=== PATIENT | female | born 1945 | race African-American/Black ===

== ENCOUNTER 2016-10-17 10:20 | Emergency (ER) | payer OTHER ==
[2016-10-17 10:27] VITALS: TEMP 97.8; BMI 38.7
--- NOTE | 2016-10-17 11:03 | PDOC ---
History of Present Illness - General History Source: Patient Exam Limitations: No Limitations - History of Present Illness Initial Comments: 10/17/16 11:06 <Yulisa Rosas - Last Filed: 10/17/16 14:50> - History of Present Illness Initial Comments: <Asha Basurto - Last Filed: 10/17/16 11:04> - General History Source: Patient Exam Limitations: No Limitations - History of Present Illness Initial Comments: 10/17/16 11:06 The patient is a 71-year-old woman, accompanied by spouse, with a significant past medical history of hypertension who presents to the emergency department via walk-in for further evaluation of right sided back pain for the past week. No fall, recent strenuous activity. She states that her pain is located at the right mid thoracic paraspinal area around the right mid thoracic rib that radiates around the mid axillary area with a rated 5/10. She notes that her pain is exacerbated when taking a deep breath and with any musculoskeletal movements, but doesn't feel short of breath. She has not taking any pain medications to help alleviate her symptoms. She denies any change in her pain for the past week but reports her pain has remained constant, thus presenting to the ED today. She denies any recent travel. She did see Dr Lieberman on Tuesday and was given an rx for a CXR, but she did not have that done yet. She denies any change in her chronic bilateral LE edema, and states it is actually slightly less today She denies chest pain, radiation of back pain into lower extremities She denies SOB, VELASQUEZ, fever, chills, cough, N/V/D, bowel or bladder incontinence/ retention. Allergies: No Known Drug Allergies Past Surgical History: None reported. Social History: No tobacco, ETOH or recreational drug use. Primary Care Physician: Dr. Gatito Lieberman Remainder of the review of systems is negative <Yulisa Rosas - Last Filed: 10/17/16 11:06> <Asha Basurto - Last Filed: 10/17/16 14:59> - General Chief Complaint: Back Pain Stated Complaint: RT SIDE CHEST PAIN (PCP SENT) Time Seen by Provider: 10/17/16 10:45 Past History <Yulisa Rosas - Last Filed: 10/17/16 14:50> - Past Medical History HTN: Yes - Immunization History Immunization Up to Date: Yes - Psycho/Social/Smoking Cessation Hx Anxiety: No Suicidal Ideation: No Smoking Status: No Smoking History: Never smoked Years of Tobacco Use: 10 Number of Cigarettes Smoked Daily: 0 Hx Alcohol Use: No Substance Use Type: None <Asha Basurto - Last Filed: 10/17/16 14:59> - Past Medical History Allergies/Adverse Reactions: Allergies Allergy/AdvReac Type Severity Reaction Status Date / Time No Known Allergies Allergy Verified 10/17/16 10:27 Home Medications: Ambulatory Orders Losartan Potassium [Cozaar] 50 mg PO DAILY 01/15/15 Metoprolol Succinate [Toprol Xl] 50 mg PO DAILY 01/15/15 Lidocaine 5% Patch [Lidoderm Patch -] 1 patch TP DAILY #30 patch 10/17/16 Review of Systems - Review of Systems Able to Perform ROS?: Yes Comments:: 10/17/16 11:06 12 point review of systems is as per history of present illness and otherwise negative <Yulisa Rosas - Last Filed: 10/17/16 14:50> *Physical Exam - Vital Signs Last Vital Signs Temp Pulse Resp BP Pulse Ox 97.8 F 60 20 122/72 96 10/17/16 10:21 10/17/16 10:21 10/17/16 10:21 10/17/16 10:21 10/17/16 10:21 <Yulisa Rosas - Last Filed: 10/17/16 14:50> - Vital Signs Last Vital Signs Temp Pulse Resp BP Pulse Ox 97.8 F 60 20 122/72 96 10/17/16 10:21 10/17/16 10:21 10/17/16 10:21 10/17/16 10:21 10/17/16 10:21 - Physical Exam Comments: 10/17/16 11:00 Physical exam Last Vital Signs Temp Pulse Resp BP Pulse Ox 97.8 F 60 20 122/72 96 10/17/16 10:21 10/17/16 10:21 10/17/16 10:21 10/17/16 10:21 10/17/16 10:21 GENERAL: The patient is awake, alert, and fully oriented, and in no apparent distress. HEAD: Normal with no signs of trauma. EYES: sclera anicteric, conjunctiva are normal. ENT: Moist mucous membranes. NECK: Normal range of motion, supple LUNGS: Breath sounds equal, clear to auscultation bilaterally. No wheezes, and no crackles. HEART: Regular rate and rhythm, normal S1 and S2 without murmur, rub or gallop. BACK: There is no T-spine tenderness There is no CVA tenderness There is right paraspinal muscle tenderness in the midthoracic spine area This calms around laterally a bit along a rib There is no rashes or shingles noted ABDOMEN: Soft, nontender, normoactive bowel sounds. No guarding, no rebound. No masses appreciated. EXTREMITIES: There is 1-2+ pitting edema in the lower extremities bilaterally Patient states that this is chronic, and it is actually less swollen than usual today There is no calf tenderness or swelling NEUROLOGICAL: Cranial nerves II through XII grossly intact. Normal speech, normal gait. PSYCH: Normal mood, normal affect. SKIN: Warm, Dry, normal turgor, no rashes or lesions noted. <Asha Basurto - Last Filed: 10/17/16 14:59> ED Treatment Course - LABORATORY CBC & Chemistry Diagram: 10/17/16 11:08 10/17/16 11:08 - RADIOLOGY Radiograph Interpretation: 10/17/16 12:00 EXAM: RAD/CHEST PA LAT IMPRESSION: There are no prior studies for comparison. There are degenerative changes, tortuous sclerotic aorta , prominent amy, old apical disease and large heart. An acute chest process is not seen. There is slight blunting of the right angle and some linear atelectasis at the left base. EXAM: RAD/SPINE-THORACIC IMPRESSION: Imaging reveals degenerative changes with wedging but no sign of blastic or lytic changes and no sign of fracture or subluxation. There is a large heart with tortuous aorta and old upper lobe chronic changes. These are better visualized on the chest film. EXAM: CT/CHEST CTA AND CT/ABDOMEN CTA W/WO CONTRAST IMPRESSION: Multiplanar imaging was performed following the intravenous bolus administration of nonionic contrast. No dissection, aneurysm, intramural hematoma or penetrating atherosclerotic ulcer is identified involving the thoracic or abdominal aorta. Moderate atherosclerotic aortic dilatation is visualized There is no CT evidence of pulmonary embolism. Mild left atrial dilatation. Prominent atherosclerotic coronary artery calcifications are visualized. No pericardial effusion. The main pulmonary artery is dilated with a 3.7 cm diameter suggestive of increased pulmonary arterial pressure. Multiple bilateral upper lobe bullae, right more than left. Small bilateral lower lobe subpleural bullae. There is no discrete infiltrate or pleural effusion. No discrete lymphadenopathy is identified. Mild elevation of the right hilum secondary to right upper lobe fibrotic changes. Note is made of diffuse hepatic surface irregularity consistent with evidence of cirrhosis. A very small amount of perihepatic ascites is seen. The spleen is mildly enlarged measuring 13.7 cm in length. Perisplenic varices are noted. The visualized osseous structures demonstrate no obvious CT evidence of acute pathology or neoplastic disease. Multilevel thoracolumbar spondylosis. <Yulisa Rosas - Last Filed: 10/17/16 14:50> - LABORATORY CBC & Chemistry Diagram: 10/17/16 11:08 10/17/16 11:08 - RADIOLOGY Radiology Studies Ordered: Category Date Time Status CHEST PA & LAT [RAD] Stat Radiology 10/17/16 10:58 Ordered SPINE-THORACIC [RAD] Stat Radiology 10/17/16 10:58 Ordered <Asha Basurto - Last Filed: 10/17/16 14:59> Medical Decision Making - Medical Decision Making 10/17/16 11:02 Most likely musculoskeletal/rib pain The pain is been constant and unchanged for a week, and worse with musculoskeletal maneuvers and deep inspiration She states she does not feel short of breath, but it hurts when she takes a deep breath Well's score is 0 10/17/16 11:49 EKG Sinus bradycardia 57, left axis deviation -4 Mild voltage criteria for LVH Normal AV and IV conduction time Normal QTC Otherwise normal EKG When compared to the EKG of 07/26/12 Today's EKG is similar to the prior EKG, with some lead placement changes 10/17/16 14:47 Laboratory Results - last 24 hr 10/17/16 10/17/16 11:08 11:08 WBC 4.9 RBC 3.86 Hgb 11.5 Hct 35.2 MCV 91.2 MCHC 32.6 RDW 14.2 Plt Count 69 L MPV 11.2 H Sodium 143 Potassium 4.0 Chloride 107 Carbon Dioxide 30 Anion Gap 6 L BUN 9 Creatinine 0.8 Creat Clearance w eGFR > 60 Random Glucose 85 Calcium 8.6 Total Bilirubin 1.3 H AST 40 H ALT 27 Alkaline Phosphatase 133 H Creatine Kinase 104 Troponin I < 0.02 Total Protein 7.1 Albumin 2.9 L CTA chest No dissection, aneurysm, intramural hematoma, or penetrating atherosclerotic ulcer is identified in the thoracic or abdominal aorta Moderate atherosclerotic aortic dilatation is visualized No CT evidence of pulmonary embolism Prominent coronary artery calcifications are seen Dilated central pulmonary vasculature consistent with pulmonary artery hypertension Mild cardiomegaly Bilateral bolus disease Hepatic cirrhosis with mild splenomegaly, possible splenic varices, and a small amount of jose antonio-hepatic ascites Impression - back pain of musculoskeletal origin Tylenol or Motrin, Lidoderm patches 10/17/16 14:55 Patient will have a full liter of IV normal saline for hydration due to dye administration, to prevent contrast nephropathy <Asha Basurto - Last Filed: 10/17/16 14:59> *DC/Admit/Observation/Transfer - Attestations Scribe Attestion: 10/17/16 11:06 Documentation prepared by Yulisa Rosas, acting as biomedical instrument technician for Asha Basurto MD. <Yulisa Rosas - Last Filed: 10/17/16 14:50> <Asha Basurto - Last Filed: 10/17/16 14:59> Diagnosis at time of Disposition: Disorder of musculoskeletal system, Thoracic back pain - Discharge Dispostion Disposition: HOME Condition at time of disposition: Stable - Referrals Referrals: Gatito Lieberman MD, MD [Primary Care Provider] - 24 hours - Patient Instructions Printed Discharge Instructions: DI for Thoracic Back Pain, Thoracic Back Pain Additional Instructions: Tylenol or Motrin for pain-take with food Lidoderm patches to the area as directed 12 hours on, 12 hours off Warm compresses and rest Drink plenty of fluids today to flush the CAT scan dye out of your system Followup with your primary care physician in 24 hours Return immediately if you worsen in any way Take your medications as directed
[2016-10-17 11:26] LABS: MCH 29.8 pg (25.7-33.7); MCHC 32.6 g/dl (32.0-36.0); MEAN CELL VOLUME 91.2 fl (80-96); MEAN PLT VOLUME 11.2 fl (7.5-11.1); PLATELET COUNT 69 K/MM3 (134-434); RDW 14.2 % (11.6-15.6); WHITE BLOOD COUNT 4.9 K/mm3 (4.0-10.0)
[2016-10-17 11:48] LABS: ALBUMIN 2.9 g/dl (3.4-5.0); ANION GAP 6 (8-16); CALCIUM 8.6 mg/dL (8.5-10.1); CO2 30 mmol/L (21-32); CREATININE 0.8 mg/dL (0.55-1.02); GLUCOSE,RANDOM 85 mg/dL (74-106); SGOT/AST 40 U/L (15-37); SGPT/ALT 27 U/L (12-78)
[2016-10-17 11:51] LABS: ALK PHOS 133 U/L (45-117); BILIRUBIN,TOTAL 1.3 mg/dL (0.2-1.0); TOT PROT 7.1 g/dl (6.4-8.2); TROPONIN I < 0.02 ng/ml (0.00-0.05)
[2016-10-17] MEDS ORDERED: SODIUM CHLORIDE 1,000 ML IV STA (12:19)
[2016-10-17 15:17] VITALS: BP 152/90; PULSE 57
--- NOTE | 2016-10-17 18:11 | EKG ---
Test Reason : Blood Pressure : / mmHG Vent. Rate : 057 BPM Atrial Rate : 057 BPM P-R Int : 188 ms QRS Dur : 082 ms QT Int : 442 ms P-R-T Axes : 025 -04 043 degrees QTc Int : 430 ms SINUS BRADYCARDIA MODERATE VOLTAGE CRITERIA FOR LVH, MAY BE NORMAL VARIANT BORDERLINE ECG WHEN COMPARED WITH ECG OF 26-JUL-2012 22:53, T WAVE INVERSION NO LONGER EVIDENT IN ANTERIOR LEADS Confirmed by TABATHA MATHEWS, NURIA ([id number]) on 10/17/2016 6:10:37 PM Referred By: Confirmed By:NURIA MAYS MD
== END 2016-10-17 15:25 | disposition home or self-care (01) ==
LOC: JER 10:20
PROC: 3E0337Z Introduction of Electrolytic and Water Balance Substance into Peripheral Vein, Percutaneous Approach (ICD-10-PCS; principal; 2016-10-17)
DX: M54.6 Pain in thoracic spine (principal); I10 Essential (primary) hypertension; R07.89 Other chest pain; R60.0 Localized edema
CPT/HCPCS: 36415; 71020-TC; 71275-TC; 72070-TC; 74175-TC; 80053; 82550; 84484; 85027; 93005; 93010; 96360; 96361; 99283-25

== ENCOUNTER 2017-07-18 10:29 | Inpatient (IN) | payer OTHER ==
--- NOTE | 2017-07-18 12:17 | PDOC ---
History of Present Illness - General Chief Complaint: Edema Stated Complaint: EVALUATION (PCP SENT),sob Time Seen by Provider: 07/18/17 11:53 History Source: Patient - History of Present Illness Associated Symptoms: reports: shortness of breath, weakness. denies: chest pain , cough, nausea/vomiting Past History - Past Medical History Allergies/Adverse Reactions: Allergies Allergy/AdvReac Type Severity Reaction Status Date / Time No Known Allergies Allergy Verified 07/18/17 10:44 Home Medications: Ambulatory Orders Metoprolol Succinate [Toprol Xl] 100 mg PO DAILY 01/15/15 COPD: No HTN: Yes - Immunization History Immunization Up to Date: Yes - Suicide/Smoking/Psychosocial Hx Smoking Status: No Smoking History: Never smoked Years of Tobacco Use: 10 Number of Cigarettes Smoked Daily: 0 Information on smoking cessation initiated: No Hx Alcohol Use: No Drug/Substance Use Hx: No Substance Use Type: None Review of Systems - Review of Systems Constitutional: No: Chills, Fever Respiratory: Yes: Shortness of Breath. No: Cough Cardiac (ROS): No: Chest Pain, Lightheadedness *Physical Exam - Vital Signs Last Vital Signs Temp Pulse Resp BP Pulse Ox 98.3 F 97 H 19 105/58 95 07/18/17 10:42 07/18/17 10:42 07/18/17 10:42 07/18/17 10:42 07/18/17 10:42 - Physical Exam General Appearance: Yes: Appropriately Dressed. No: Apparent Distress HEENT: positive: Normal Voice Neck: positive: Supple Respiratory/Chest: positive: Lungs Clear, Normal Breath Sounds. negative: Respiratory Distress Cardiovascular: positive: Regular Rate, S1, S2 Extremity: positive: Pedal Edema (3+ edema b/l) Integumentary: positive: Dry, Warm Neurologic: positive: Fully Oriented, Alert, Normal Mood/Affect ED Treatment Course - LABORATORY CBC & Chemistry Diagram: 07/18/17 13:11 07/18/17 13:11 - RADIOLOGY Radiology Studies Ordered: Category Date Time Status CHEST X-RAY PORTABLE* [RAD] Stat Radiology 07/18/17 12:10 Ordered Medical Decision Making - Medical Decision Making 07/18/17 12:12 71 yo F. h/o HTN and possible CHF, here with worsening lower extremity edema of unclear duration with possible shortness of breath and generalized weakness for several days. States she recently had her torsemide adjusted by her PMD, Dr. Lieberman. Denies chest pain, cough, nausea, vomiting, fever or chills. Patient states she was seen by Dr. Lieberman this am and referred to ED. See exam ?CHF exacerbation On torsemide w/ recent med adjustment for worsening edema Stable w/ sig pedal edema b/l -ekg -cxr -labs -arrange admission w/ PMD 07/18/17 13:[address] Lieberman who states patient has had edema for a long time and recently had torsemide increased for worsening symptoms. Was on Lasix in the past but taken off because of hypotension. States patient also complaining of shortness of breath. States pt should be admitted to Dr Pate. Has seen Dr Rebolledo of cards in the past 07/18/17 13:30 07/18/17 14:06 CXR w/ no e/o fluid overload. EKG and labs unremarkable w/ BNP >500. Lungs clear on exam. Given h/o sob and worsening edema, will discuss w/ cards possible admission for diuresis 07/18/17 14:[address] Palmer who is covering for Dr. Avila, agree with admission for diuresis. Recommends 40 mg IV Lasix while in ER. As per discussion with Dr. Lieberman earlier, will admit to Dr. Pate 07/18/17 14:[address] Pate who wants patient admitted to telemetry and wants Dr. Blood of pulmonary consulted *DC/Admit/Observation/Transfer Diagnosis at time of Disposition: SOB (shortness of breath) Edema Qualifiers: Edema type: unspecified Qualified Code(s): R60.9 - Edema, unspecified - Discharge Dispostion Condition at time of disposition: Fair Admit: Yes - Referrals Referrals: Gatito Lieberman MD, MD [Primary Care Provider] - - Patient Instructions - Post Discharge Activity
[2017-07-18 13:23] LABS: BASOPHIL 0.7 % (0-2.0); EOSINOPHIL 3.1 % (0-4.5); MCH 29.3 pg (25.7-33.7); MCHC 32.2 g/dl (32.0-36.0); MEAN CELL VOLUME 90.8 fl (80-96); MEAN PLT VOLUME 9.2 fl (7.5-11.1); NEUTROPHILS 69.6 % (42.8-82.8); PLATELET COUNT 82 K/MM3 (134-434); RDW 14.8 % (11.6-15.6); WHITE BLOOD COUNT 6.4 K/mm3 (4.0-10.0)
[2017-07-18 13:44] LABS: ALBUMIN 2.1 g/dl (3.4-5.0); ANION GAP 3 (8-16); CO2 33 mmol/L (21-32); CREATININE 0.7 mg/dL (0.55-1.02); GLUCOSE,RANDOM 107 mg/dL (74-106); SGOT/AST 42 U/L (15-37); SGPT/ALT 22 U/L (12-78)
[2017-07-18 13:48] LABS: ALK PHOS 160 U/L (45-117); BILIRUBIN,TOTAL 1.1 mg/dL (0.2-1.0); CPK 106 IU/L (26-192); TOT PROT 6.4 g/dl (6.4-8.2); TROPONIN I 0.03 ng/ml (0.00-0.05)
[2017-07-18] MEDS ORDERED: FUROSEMIDE 40 MG/4 ML INJECTABLE VIAL IVPUSH ONE ×2 (14:32→20:00)
[2017-07-18] MEDS ORDERED: FUROSEMIDE 40 MG/4 ML INJECTABLE VIAL ONE ×2 (14:45→21:29)
[2017-07-18 15:44] LABS: URINE APPEARANCE SLCLOUDY; URINE BILIRUBIN NEGATIVE (NEGATIVE); URINE BLOOD NEGATIVE (NEGATIVE); URINE COLOR AMBER; URINE GLUCOSE (UA) NEGATIVE (NEGATIVE); URINE KETONE NEGATIVE (NEGATIVE); URINE NITRITE NEGATIVE (NEGATIVE); URINE UROBILINOGEN 4.0 E.U/dl mg/dL (0.2-1.0)
--- NOTE | 2017-07-18 16:16 | CON.CARD ---
Cardiology Consult (text) - Consultation Consultation Note: cc: le edema, sob hpi: 71 f hx HCM, venous insuff/le edema, here with sob, le edema. Pt has chronic butler and le edema. Saw cardiology dr hines in 03/2017 and started on torsemide. She never followed up and self d/c'ed her meds. Since then her le edema has gradually worsened with butler as well. No cp, palps, dizzy, loc, pnd. +orthopnea. pmh: per hpi psh: nc social: no tob fam: no premature cad/scd ros: per hpi; no fever, nvd, wt loss, cough, campbell, vision changes, muscle pains, nasal congestion, gib meds: Home Medications Medication Instructions Recorded Metoprolol Succinate [Toprol Xl] 100 mg PO DAILY 01/15/15 pe: Vital Signs Period Temp Pulse Resp BP Sys/Patel Pulse Ox Last 24 Hr 98.3 F 97 19 105/58 95 nad no jvd rrr s1s2 nomrg cta bl nl eff aaox3 1-2+le edema bl, no c/c pos dp pt no carotid bruits no jaundice diaphoresis abd nt nd pos bs Laboratory Last Values WBC 6.4 K/mm3 (4.0-10.0) D 07/18/17 13:11 RBC 3.39 M/mm3 (3.60-5.2) L 07/18/17 13:11 Hgb 9.9 GM/dL (10.7-15.3) L D 07/18/17 13:11 Hct 30.8 % (32.4-45.2) L 07/18/17 13:11 MCV 90.8 fl (80-96) 07/18/17 13:11 MCH 29.3 pg (25.7-33.7) 07/18/17 13:11 MCHC 32.2 g/dl (32.0-36.0) 07/18/17 13:11 RDW 14.8 % (11.6-15.6) 07/18/17 13:11 Plt Count 82 K/MM3 (134-434) L 07/18/17 13:11 MPV 9.2 fl (7.5-11.1) D 07/18/17 13:11 Neutrophils % 69.6 % (42.8-82.8) 07/18/17 13:11 Lymphocytes % 14.0 % (8-40) 07/18/17 13:11 Monocytes % 12.6 % (3.8-10.2) H 07/18/17 13:11 Eosinophils % 3.1 % (0-4.5) 07/18/17 13:11 Basophils % 0.7 % (0-2.0) 07/18/17 13:11 Sodium 141 mmol/L (136-145) 07/18/17 13:11 Potassium 3.8 mmol/L (3.5-5.1) 07/18/17 13:11 Chloride 105 mmol/L (98-107) 07/18/17 13:11 Carbon Dioxide 33 mmol/L (21-32) H 07/18/17 13:11 Anion Gap 3 (8-16) L 07/18/17 13:11 BUN 8 mg/dL (7-18) 07/18/17 13:11 Creatinine 0.7 mg/dL (0.55-1.02) 07/18/17 13:11 Creat Clearance w eGFR > 60 (>60) 07/18/17 13:11 Random Glucose 107 mg/dL (74-106) H D 07/18/17 13:11 Calcium 8.0 mg/dL (8.5-10.1) L 07/18/17 13:11 Total Bilirubin 1.1 mg/dL (0.2-1.0) H 07/18/17 13:11 AST 42 U/L (15-37) H 07/18/17 13:11 ALT 22 U/L (12-78) 07/18/17 13:11 Alkaline Phosphatase 160 U/L (45-117) H D 07/18/17 13:11 Creatine Kinase 106 IU/L (26-192) 07/18/17 13:11 Troponin I 0.03 ng/ml (0.00-0.05) 07/18/17 13:11 B-Natriuretic Peptide 583.44 pg/ml (5-125) H 07/18/17 13:11 Total Protein 6.4 g/dl (6.4-8.2) 07/18/17 13:11 Albumin 2.1 g/dl (3.4-5.0) L D 07/18/17 13:11 ecg 07/18/17: sr, nl intervals, no ischemic changes cxr: clear lungs echo 04/2017: tds; lvef>70%, mild josie, lvot obstruction, nl rv, mac, mikala, findings c/w hcm a/p: 71 f hx HCM, venous insuff/le edema, here with sob, le edema. acute on chronic right sided chf, sob, venous insuff/le edema: -pt with chronic le edema and sob. She was supposed to be on torsemide 100 qd at home but she self d/c'ed months a go because she felt it was making her confused. Thus, without diuretic her le edema and butler have worsened. No signs pulm congestion here, mostly RHF. No signs acs. Will start with lasix 40 iv bid and monitor daily cr, lytes, wt. HCM: -seen on recent echo as outpt, cont home BB
[2017-07-18 16:29] LABS: URINE PROTEIN 1+ (NEGATIVE)
[2017-07-18] MEDS: FUROSEMIDE 40 MG/4 ML INJECTABLE VIAL IVPUSH SCH (16:35)
[2017-07-18 16:49] LABS: URINE HYALINE CAST 1 /lpf; URINE MUCUS FEW; URINE RBC 12 /hpf (0-3); URINE WBC 10 /hpf (3-5)
--- NOTE | 2017-07-18 19:09 | HP ---
Admitting History and Physical - Primary Care Physician PCP: Kim Pate - Admission Chief Complaint: DYSPNEA/EDEMA History of Present Illness: SENT BY PMD FOR SHORTNESS OF BREATHA CUTE EXACERBATION OF HEART FAILURE History Source: Patient, Medical Record - Past Medical History Cardiovascular: Yes: CHF, HTN - Smoking History Smoking history: Never smoked Aproximately how many cigarettes per day: 0 - Alcohol/Substance Use Hx Alcohol Use: No Home Medications - Allergies Allergies/Adverse Reactions: Allergies Allergy/AdvReac Type Severity Reaction Status Date / Time No Known Allergies Allergy Verified 07/18/17 10:44 - Home Medications Home Medications: Ambulatory Orders Metoprolol Succinate [Toprol Xl] 100 mg PO DAILY 01/15/15 Review of Systems - Review of Systems Constitutional: reports: Weakness Eyes: reports: No Symptoms HENT: reports: No Symptoms Neck: reports: No Symptoms Cardiovascular: reports: Shortness of Breath Respiratory: reports: Cough, SOB Gastrointestinal: reports: No Symptoms Genitourinary: reports: No Symptoms Musculoskeletal: reports: No Symptoms Integumentary: reports: No Symptoms Neurological: reports: No Symptoms Endocrine: reports: No Symptoms Hematology/Lymphatic: reports: No Symptoms Psychiatric: reports: No Symptoms Physical Examination Vital Signs: Vital Signs Temperature 98.3 F 07/18/17 10:42 Pulse Rate 97 H 07/18/17 10:42 Respiratory Rate 19 07/18/17 10:42 Blood Pressure 105/58 07/18/17 10:42 O2 Sat by Pulse Oximetry (%) 95 07/18/17 10:42 Constitutional: Yes: Mild Distress Eyes: Yes: WNL HENT: Yes: WNL Neck: Yes: WNL Cardiovascular: Yes: WNL Respiratory: Yes: Cough, On Nasal O2, Orthopnea, Poor Air Entry, SOB Gastrointestinal: Yes: WNL Renal/: Yes: WNL Musculoskeletal: Yes: WNL Extremities: Yes: WNL Edema: Yes Edema: LLE: 1+, RLE: 1+ Peripheral Pulses WNL: Yes Integumentary: Yes: WNL Wound/Incision: Yes: Clean/Dry Neurological: Yes: WNL, Weakness Psychiatric: Yes: WNL Labs: CBC, BMP 07/18/17 13:11 07/18/17 13:11 Imaging - Results Chest X-ray: Report Reviewed Problem List - Problems (1) CHF (congestive heart failure) Code(s): I50.9 - HEART FAILURE, UNSPECIFIED Qualifiers: Congestive heart failure type: unspecified congestive heart failure type Congestive heart failure chronicity: unspecified congestive heart failure chronicity Qualified Code(s): I50.9 - Heart failure, unspecified (2) Edema Code(s): R60.9 - EDEMA, UNSPECIFIED Qualifiers: Edema type: unspecified Qualified Code(s): R60.9 - Edema, unspecified (3) SOB (shortness of breath) Code(s): R06.02 - SHORTNESS OF BREATH Assessment/Plan CARDIOLOGY FOLLOW UP CHECK ECHO DETERMINE SYSTOLIC VS DIASTLIC FAILURE OR BOTH? LASIX IV DAILY WEIGHTS 02 SUPPORT
[2017-07-18] MEDS ORDERED: ONDANSETRON *ODT* 4 MG TABLET SL PRN (19:11)
[2017-07-18] MEDS ORDERED: ACETAMINOPHEN 325 MG TABLET (FP) PO PRN (19:11)
[2017-07-18 21:14] LABS: URINE LEUK ESTERASE Negative (NEGATIVE)
[2017-07-18] MEDS: LIDOCAINE PATCH REMOVAL MC SCH ×2 (21:26→23:14)
[2017-07-18] MEDS ORDERED: LIDOCAINE 5% TOPICAL PATCH ONE (21:31)
[2017-07-19 06:27] VITALS: BMI 40.5
[2017-07-19] MEDS: FUROSEMIDE 40 MG/4 ML INJECTABLE VIAL IVPUSH SCH (06:42)
[2017-07-19 07:18] LABS: ANION GAP 4 (8-16); CALCIUM 7.8 mg/dL (8.5-10.1); CHOLESTEROL 100 mg/dL (50-200); CO2 33 mmol/L (21-32); CREATININE 0.6 mg/dL (0.55-1.02); GLUCOSE,RANDOM 79 mg/dL (74-106); SGOT/AST 37 U/L (15-37); SGPT/ALT 19 U/L (12-78)
[2017-07-19 07:21] LABS: ALK PHOS 125 U/L (45-117); BILIRUBIN,TOTAL 1.2 mg/dL (0.2-1.0); TOT PROT 6.1 g/dl (6.4-8.2)
[2017-07-19 07:36] LABS: MCH 29.3 pg (25.7-33.7); MCHC 32.8 g/dl (32.0-36.0); MEAN CELL VOLUME 89.5 fl (80-96); MEAN PLT VOLUME 9.9 fl (7.5-11.1); PLATELET COUNT 85 K/MM3 (134-434); RDW 14.5 % (11.6-15.6); WHITE BLOOD COUNT 5.7 K/mm3 (4.0-10.0)
[2017-07-19] MEDS ORDERED: METOPROLOL SUCCINATE 50 MG TAB.SR.24H (FP) PO SCH (10:00)
[2017-07-19] MEDS: LIDOCAINE 5% TOPICAL PATCH TP SCH (10:00)
[2017-07-19] MEDS ORDERED: LOSARTAN POTASSIUM 50 MG TABLET (FP) PO SCH (10:00)
--- NOTE | 2017-07-19 10:28 | EKG ---
Test Reason : Blood Pressure : / mmHG Vent. Rate : 060 BPM Atrial Rate : 060 BPM P-R Int : 158 ms QRS Dur : 072 ms QT Int : 448 ms P-R-T Axes : -20 001 031 degrees QTc Int : 448 ms NORMAL SINUS RHYTHM CANNOT RULE OUT ANTERIOR INFARCT , AGE UNDETERMINED ABNORMAL ECG WHEN COMPARED WITH ECG OF 17-OCT-2016 11:12, NO SIGNIFICANT CHANGE WAS FOUND Confirmed by LISY MATHEWS, PEARL ([id number]) on 07/19/2017 10:27:55 AM Referred By: Confirmed By:PEARL WASSERMAN MD
--- NOTE | 2017-07-19 12:43 | PN ---
Progress Note (short form) - Note Progress Note: cc: le edema, sob S: episode of hypotension this am after lasix (asx). No cp, palps, dizzy, loc , pnd. +orthopnea and butler, le edema improved slightly. cardiology dr hines meds: Current Medications Acetaminophen (Tylenol -) 650 mg PO Q6H PRN PRN Reason: FEVER OR PAIN Lidocaine (Lidoderm Patch -) 1 patch TP DAILY [facility] Last Admin: 07/19/17 10:00 Dose: 1 patch Losartan Potassium (Cozaar -) 50 mg PO DAILY [facility] Last Admin: 07/19/17 10:00 Dose: Not Given Metoprolol Succinate (Toprol Xl -) 50 mg PO DAILY [facility] Last Admin: 07/19/17 10:00 Dose: Not Given Miscellaneous (Lidoderm Patch Removal) 1 each MC DAILY@2200 [facility] Last Admin: 07/18/17 23:14 Dose: Not Given Ondansetron HCl (Zofran Odt -) 4 mg SL Q8H PRN PRN Reason: NAUSEA AND/OR VOMITING pe: Vital Signs - 24 hr 07/18/17 07/18/17 07/18/17 20:55 21:30 22:00 Temperature 98.1 F 98.5 F Pulse Rate 75 Pulse Rate [ 90 Apical] Respiratory 20 20 Rate Blood Pressure 98/46 Blood Pressure 124/64 [Left Arm] O2 Sat by Pulse 95 98 Oximetry (%) 07/19/17 07/19/17 07/19/17 02:25 06:00 10:08 Temperature 97.6 F Pulse Rate 80 66 Pulse Rate [ Apical] Respiratory 20 20 Rate Blood Pressure 113/68 91/53 87/56 Blood Pressure [Left Arm] O2 Sat by Pulse Oximetry (%) 07/19/17 07/19/17 10:29 11:54 Temperature Pulse Rate 68 Pulse Rate [ Apical] Respiratory 20 Rate Blood Pressure 102/61 117/61 Blood Pressure [Left Arm] O2 Sat by Pulse Oximetry (%) Intake & Output 07/17/17 07/18/17 07/19/17 07/20/17 07:59 07:59 07:59 07:59 Intake Total 450 Output Total 1100 Balance -650 Weight 236 lb 12.8 oz 235 lb nad no jvd rrr s1s2 nomrg cta bl nl eff aaox3 1 le edema bl, no c/c pos dp pt no carotid bruits no jaundice diaphoresis abd nt nd pos bs CBC, BMP 07/19/17 06:30 07/19/17 06:30 Laboratory Tests 07/18/17 07/18/17 07/19/17 13:11 13:11 06:30 Plt Count 82 L Hemoglobin A1c % Total Bilirubin 1.2 H AST 37 ALT 19 Alkaline Phosphatase 125 H D Creatine Kinase 106 Troponin I 0.03 B-Natriuretic Peptide 583.44 H Albumin 2.0 L Triglycerides 51 Cholesterol 100 Total LDL Cholesterol 57 HDL Cholesterol 32 L 07/19/17 06:30 Plt Count Hemoglobin A1c % 4.2 L Total Bilirubin AST ALT Alkaline Phosphatase Creatine Kinase Troponin I B-Natriuretic Peptide Albumin Triglycerides Cholesterol Total LDL Cholesterol HDL Cholesterol ecg 07/18/17: sr, nl intervals, no ischemic changes tele: SR with 2 brief episodes of junctional rhythm. cxr: clear lungs echo 04/2017: tds; lvef>70%, mild josie, lvot obstruction, nl rv, mac, mikala, findings c/w hcm a/p: 71 f hx HCM, venous insuff/le edema, here with sob, le edema. acute on chronic right sided chf/hcm, sob, venous insuff/le edema: -pt with chronic le edema and sob. She was supposed to be on torsemide 100 qd at home but she self d/c'ed months a go because she felt it was making her confused. No signs pulm congestion here, mostly RHF. No signs acs. started trial of lasix 40 iv bid. Monitor daily cr, lytes, wt. -07/19: now s/p 3 doses of lasix 40 mg IV (BID yesterday and a dose this am). sbp drop to 80's this am. will hold IV bid lasix --> transition to daily dosing. Will need to review echo images. Will hold ARB as well. HCM: -seen on recent echo as outpt. Uptitrate BB to bid dosing. pancytopenia. - denies hx. mgm't per pmd.
--- NOTE | 2017-07-19 13:18 | PN ---
Teaching Attending Note Name of Resident: Modesto Dietz ATTENDING PHYSICIAN STATEMENT I saw and evaluated the patient. I reviewed the resident's note and discussed the case with the resident. I agree with the resident's findings and plan as documented. SUBJECTIVE: Pt seen and examined with the resident. Briefly, 71yo female with h/o HTN, hypertrophic cardiomyopathy who was admitted with worsening shortness of breath and leg swelling. She had stopped taking her prescribed torsemide on her own. Started experiencing increasing abdominal bloating, orthopnea and leg edema. No chest pain. No fevers, chills. +nonproductive cough without wheezing. OBJECTIVE: Last Vital Signs Temp Pulse Resp BP Pulse Ox 97.6 F 68 20 117/61 98 07/19/17 02:25 07/19/17 11:54 07/19/17 11:54 07/19/17 11:54 07/18/17 21:30 Intake & Output 07/16/17 07/17/17 07/18/17 07/19/17 23:59 23:59 23:59 23:59 Intake Total 450 Output Total 1100 Balance -650 Weight 236 lb 235 lb Gen: NAD in chair but mildly tachypneic with small movements Neck: +JVD Heart: RRR, +late systolic murmur RUSB Lung: decreased breath sounds at the bases Abd: soft, obese, nontender Ext: + edema CBC, BMP 07/19/17 06:30 07/19/17 06:30 CXR: pulmonary vascular congestion Active Medications Acetaminophen (Tylenol -) 650 mg PO Q6H PRN PRN Reason: FEVER OR PAIN Lidocaine (Lidoderm Patch -) 1 patch TP DAILY [facility] Last Admin: 07/19/17 10:00 Dose: 1 patch Losartan Potassium (Cozaar -) 50 mg PO DAILY [facility] Last Admin: 07/19/17 10:00 Dose: Not Given Metoprolol Succinate (Toprol Xl -) 50 mg PO DAILY [facility] Last Admin: 07/19/17 10:00 Dose: Not Given Miscellaneous (Lidoderm Patch Removal) 1 each MC DAILY@2200 [facility] Last Admin: 07/18/17 23:14 Dose: Not Given Ondansetron HCl (Zofran Odt -) 4 mg SL Q8H PRN PRN Reason: NAUSEA AND/OR VOMITING ASSESSMENT AND PLAN: Hypertrophic Cardiomyopathy HTN Elevated LFTs Thromboctyopenia - echocardiogram - became hypotensive with diuresis, would hold off for now - beta dana, ARB - cardiology f/u - RUQ ultrasound to r/o liver pathology given mildly elevated LFTs and thrombocytopenia - check coags - DVT prophylaxis Thank you for this consult Baljit Marina MD
--- NOTE | 2017-07-19 13:41 | CON.PULM ---
Consult Consult Specialty:: Pulmonology Reason for Consultation:: We were called to assess the patient for shortness of breath - History of Present Illness History of Present Illness: The patient is a 71 yo f w/ PMH HTN, hypertrophic cardiomyopathy who comes into the ed c/o approximately 1 week of progressive shortness of breath, lower extremity edema and generalized weakness. 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 The patient's symptoms continued to decline, prompting her to comes to the ED for evaluation. The patient was admitted for acute CHF exacerbation. As per cardiology, the patient is known to them and has been noncompliant with her medications leading to her exacerbation. Today, patient states that her breathing is slightly better , though still labored and notes that the swelling in her legs has improved. Patient endorses orthopnea, but denies fevers, sick contacts, recent travel, chest pain. - History Source History Provided By: Patient Limitations to Obtaining History: No Limitations - Past Medical History Cardio/Vascular: Yes: CHF, HTN - Alcohol/Substance Use Hx Alcohol Use: No - Smoking History Smoking history: Never smoked Aproximately how many cigarettes per day: 0 Home Medications - Allergies Allergies/Adverse Reactions: Allergies Allergy/AdvReac Type Severity Reaction Status Date / Time No Known Allergies Allergy Verified 07/18/17 10:44 - Home Medications Home Medications: Ambulatory Orders Metoprolol Succinate [Toprol Xl] 100 mg PO DAILY 01/15/15 Review of Systems - Review of Systems Constitutional: reports: Weakness. denies: Chills, Fever Cardiovascular: reports: Edema, Shortness of Breath. denies: Chest Pain, Palpitations Respiratory: reports: Cough, Exercise Intolerance, Orthopnea, SOB, SOB on Exertion. denies: Hemoptysis, PND, Wheezing Physical Exam Vital Sings: Vital Signs Temperature 97.6 F 07/19/17 02:25 Pulse Rate 68 07/19/17 11:54 Respiratory Rate 20 07/19/17 11:54 Blood Pressure 117/61 07/19/17 11:54 O2 Sat by Pulse Oximetry (%) 98 07/18/17 21:30 Constitutional: Yes: Well Nourished, No Distress, Calm, Obese HENT: Yes: Atraumatic, Normocephalic Cardiovascular: Yes: Regular Rate and Rhythm, JVD, S1, S2. No: Bruit, Gallop, Murmur, Rub, S3, S4 Respiratory: Yes: Regular, CTA Bilaterally, Diminished ...Breath Sounds: THELMA Clear, LLL Diminished, RUL Clear, RML Clear, RLL Diminished Edema: Yes Edema: LLE: 3+, RLE: 3+ Labs: CBC, BMP 07/19/17 06:30 07/19/17 06:30 Assessment/Plan The patient is a 71 yo f w/ PMH HTN, HCM admitted to the hospital for the treatment of acute CHF exacerbation. #SOB, Edema and weakness 2/2 CHF exacerbation -Caution with diuresis as the patient has a history of hypotension on lasix -cardiac medications as per cardiology -Echo #Thrombocytopenia -consider RUQ US as patient is thrombocytopenic with elevated LFTs r/o liver pathology -check coags -DVT prophylaxsis
--- NOTE | 2017-07-19 14:59 | PN ---
Progress Note, Physician Chief Complaint: ASLEEP COMFORTABLE BP MEDS HELD - Current Medication List Current Medications: Active Medications Acetaminophen (Tylenol -) 650 mg PO Q6H PRN PRN Reason: FEVER OR PAIN Lidocaine (Lidoderm Patch -) 1 patch TP DAILY [facility] Last Admin: 07/19/17 10:00 Dose: 1 patch Losartan Potassium (Cozaar -) 50 mg PO DAILY [facility] Last Admin: 07/19/17 10:00 Dose: Not Given Metoprolol Succinate (Toprol Xl -) 50 mg PO DAILY [facility] Last Admin: 07/19/17 10:00 Dose: Not Given Miscellaneous (Lidoderm Patch Removal) 1 each MC DAILY@2200 [facility] Last Admin: 07/18/17 23:14 Dose: Not Given Ondansetron HCl (Zofran Odt -) 4 mg SL Q8H PRN PRN Reason: NAUSEA AND/OR VOMITING - Objective Vital Signs: Vital Signs Temperature 97.6 F 07/19/17 02:25 Pulse Rate 68 07/19/17 11:54 Respiratory Rate 20 07/19/17 11:54 Blood Pressure 117/61 07/19/17 11:54 O2 Sat by Pulse Oximetry (%) 98 07/18/17 21:30 Constitutional: Yes: No Distress Eyes: Yes: WNL HENT: Yes: WNL Neck: Yes: WNL Cardiovascular: Yes: WNL Respiratory: Yes: On Nasal O2, Orthopnea, SOB Gastrointestinal: Yes: WNL Genitourinary: Yes: WNL Musculoskeletal: Yes: Muscle Weakness Extremities: Yes: WNL Edema: Yes Integumentary: Yes: WNL Wound/Incision: Yes: Clean/Dry Neurological: Yes: WNL ...Motor Strength: WNL Psychiatric: Yes: WNL Labs: CBC, BMP 07/19/17 06:30 07/19/17 06:30 Problem List - Problems (1) CHF (congestive heart failure) Code(s): I50.9 - HEART FAILURE, UNSPECIFIED Qualifiers: Congestive heart failure type: unspecified congestive heart failure type Congestive heart failure chronicity: unspecified congestive heart failure chronicity Qualified Code(s): I50.9 - Heart failure, unspecified (2) Edema Code(s): R60.9 - EDEMA, UNSPECIFIED Qualifiers: Edema type: unspecified Qualified Code(s): R60.9 - Edema, unspecified (3) SOB (shortness of breath) Code(s): R06.02 - SHORTNESS OF BREATH Assessment/Plan LASIX HELD DO TO LOW BP OOB TO CHAIR PT EVAL CARDIOLOGY AND PULM F/U DVT PROPHYLAXIS
--- NOTE | 2017-07-19 16:23 | PN ---
Progress Note (short form) - Note Progress Note: ADDENDUM: ELEVATED LIVER ENZYMES WITH THROMBOCYTOPENIA WILL ADD HEPATITIS ACUTE PANEL ABD SONO HEME/ONC CONSULT Problem List - Problems (1) CHF (congestive heart failure) Code(s): I50.9 - HEART FAILURE, UNSPECIFIED Qualifiers: Congestive heart failure type: unspecified congestive heart failure type Congestive heart failure chronicity: unspecified congestive heart failure chronicity Qualified Code(s): I50.9 - Heart failure, unspecified (2) Edema Code(s): R60.9 - EDEMA, UNSPECIFIED Qualifiers: Edema type: unspecified Qualified Code(s): R60.9 - Edema, unspecified (3) SOB (shortness of breath) Code(s): R06.02 - SHORTNESS OF BREATH
--- NOTE | 2017-07-19 17:28 | CONSULT ---
Consult Consult Specialty:: Hematology/Oncology - History of Present Illness Chief Complaint: anemia. thrombocytopenia History of Present Illness: 71 year old female with hx HCM, venous insuff/le edema, here with sob, le edema. She is admitted with lower extremity edema and SHOOK , SOB in the setting of self- discontinuing her diuretics, and is presently being treated as heart failure exacerbation (RHF) also has HCM. Hematology consulted for anemia and thrombocytopenia. Patient seen and examined. Continues to have SOB and LE edema. She presently denies any chest pain , palpitations, but she complains of increasing abdominal girth. - History Source History Provided By: Patient, Medical Record - Past Medical History Cardio/Vascular: Yes: CHF, HTN - Alcohol/Substance Use Hx Alcohol Use: No - Smoking History Smoking history: Never smoked Aproximately how many cigarettes per day: 0 Home Medications - Allergies Allergies/Adverse Reactions: Allergies Allergy/AdvReac Type Severity Reaction Status Date / Time No Known Allergies Allergy Verified 07/18/17 10:44 - Home Medications Home Medications: Ambulatory Orders Metoprolol Succinate [Toprol Xl] 100 mg PO DAILY 01/15/15 Family Disease History - Family Disease History Family History: Denies Review of Systems - Review of Systems Constitutional: reports: Weakness. denies: Lethargy, Loss of Appetite, Night Sweats, Unintentional Wgt. Loss Eyes: denies: Blind Spots, Blurred Vision, Double Vision HENT: denies: Difficult Swallowing, Ear Discharge, Ear Pain Neck: denies: Decreased ROM, Lumps Cardiovascular: reports: Edema, Shortness of Breath. denies: Palpitations Respiratory: reports: SOB, SOB on Exertion. denies: Wheezing Gastrointestinal: reports: Abdominal Pain. denies: Melena, Nausea Musculoskeletal: denies: Back Pain Neurological: denies: Change in LOC, Change in Speech Endocrine: denies: Excessive Sweating Hematology/Lymphatic: denies: Easily Bruised, Excessive Bleeding Physical Exam Vital Signs: Vital Signs Temperature 98.6 F 07/19/17 15:00 Pulse Rate 70 07/19/17 15:00 Respiratory Rate 18 07/19/17 15:00 Blood Pressure 100/49 07/19/17 15:00 O2 Sat by Pulse Oximetry (%) 98 07/18/17 21:30 Constitutional: Yes: Well Nourished, Mild Distress Eyes: Yes: Conjunctiva Clear HENT: Yes: Atraumatic, Normocephalic Neck: Yes: Supple Cardiovascular: Yes: Regular Rate and Rhythm Respiratory: Yes: Regular, SOB. No: Accessory Muscle Use Gastrointestinal: Yes: Normal Bowel Sounds, Abdomen, Obese, Ascites Edema: Yes Edema: LLE: 2+, RLE: 2+ Neurological: Yes: Alert, Oriented Psychiatric: Yes: Alert, Oriented Labs: CBC, BMP 07/19/17 06:30 07/19/17 06:30 Imaging - Results Chest X-ray: Report Reviewed Assessment/Plan Anemia Thrombocytopenia Elevated LFTs Right heart failure HCM HTN -etiology likely could be congestive/splenomegaly but would need to confirm with US abdomen ( already ordered ) -routine anemia and thrombocytopenia screening w/u ordered -Hep B/C serologies -if US with ascites, would consider paracentesis for symptomatic relief -Cardiology/Pulm f/u noted. -DVT ppx -will follow
[2017-07-19] MEDS: ENOXAPARIN NA (PORCINE) 40 MG/0.4 ML DISP.SYRIN SQ SCH (22:19)
[2017-07-19] MEDS: LIDOCAINE PATCH REMOVAL MC SCH (22:20)
[2017-07-20 07:21] LABS: BASOPHIL 0.8 % (0-2.0); EOSINOPHIL 4.2 % (0-4.5); MCH 29.1 pg (25.7-33.7); MCHC 32.8 g/dl (32.0-36.0); MEAN CELL VOLUME 88.8 fl (80-96); MEAN PLT VOLUME 9.4 fl (7.5-11.1); NEUTROPHILS 58.3 % (42.8-82.8); PLATELET COUNT 86 K/MM3 (134-434); RDW 14.4 % (11.6-15.6); WHITE BLOOD COUNT 5.2 K/mm3 (4.0-10.0)
[2017-07-20 07:45] LABS: INR 1.35 (0.82-1.09); PROTHROMBIN TIME (PATIENT) 15.2 SEC (9.98-11.88)
[2017-07-20 07:48] LABS: ACTIVATED PTT 42.1 SECONDS (26.9-34.4)
[2017-07-20 08:04] LABS: FERRITIN 127.984 ng/ml (6.9-282.5)
--- NOTE | 2017-07-20 11:16 | PN ---
Progress Note, Physician - Current Medication List Current Medications: Active Medications Acetaminophen (Tylenol -) 650 mg PO Q6H PRN PRN Reason: FEVER OR PAIN Enoxaparin Sodium (Lovenox -) 40 mg SQ DAILY [facility] Last Admin: 07/19/17 22:19 Dose: 40 mg Furosemide (Lasix Injection -) 40 mg IVPUSH DAILY [facility] Lidocaine (Lidoderm Patch -) 1 patch TP DAILY [facility] Last Admin: 07/19/17 10:00 Dose: 1 patch Metoprolol Succinate (Toprol Xl -) 50 mg PO BID [facility] Miscellaneous (Lidoderm Patch Removal) 1 each MC DAILY@2200 [facility] Last Admin: 07/19/17 22:20 Dose: 1 each Ondansetron HCl (Zofran Odt -) 4 mg SL Q8H PRN PRN Reason: NAUSEA AND/OR VOMITING - Objective Vital Signs: Vital Signs Temperature 99.3 F 07/20/17 04:19 Pulse Rate 82 07/20/17 06:00 Respiratory Rate 20 07/20/17 06:00 Blood Pressure 92/50 07/20/17 06:00 O2 Sat by Pulse Oximetry (%) 99 07/20/17 08:57 Labs: CBC, BMP 07/20/17 05:05 07/19/17 06:30 INR, PTT INR 1.35 (0.82-1.09) H 07/20/17 05:05 Problem List - Problems (1) CHF (congestive heart failure) Code(s): I50.9 - HEART FAILURE, UNSPECIFIED Qualifiers: Congestive heart failure type: unspecified congestive heart failure type Congestive heart failure chronicity: unspecified congestive heart failure chronicity Qualified Code(s): I50.9 - Heart failure, unspecified (2) Edema Code(s): R60.9 - EDEMA, UNSPECIFIED Qualifiers: Edema type: unspecified Qualified Code(s): R60.9 - Edema, unspecified (3) SOB (shortness of breath) Code(s): R06.02 - SHORTNESS OF BREATH
--- NOTE | 2017-07-20 11:34 | PN ---
Teaching Attending Note ATTENDING PHYSICIAN STATEMENT I saw and evaluated the patient. I reviewed the resident's note and discussed the case with the resident. I agree with the resident's findings and plan as documented. pulmonary alert, feeling better,less dyspneic,oob-chair,-cp,still hypotensive SUBJECTIVE: ASSESSMENT AND PLAN: Hypertrophic Cardiomyopathy HTN Elevated LFTs Thromboctyopenia - echocardiogram pending - cautious use of diuretics - beta dana - monitor lytes,plt ct - DVT prophylaxis DR DOLAN Problem List - Problems (1) Thrombocytopenia Code(s): D69.6 - THROMBOCYTOPENIA, UNSPECIFIED (2) CHF (congestive heart failure) Code(s): I50.9 - HEART FAILURE, UNSPECIFIED Qualifiers: Congestive heart failure type: unspecified congestive heart failure type Congestive heart failure chronicity: unspecified congestive heart failure chronicity Qualified Code(s): I50.9 - Heart failure, unspecified (3) Edema Code(s): R60.9 - EDEMA, UNSPECIFIED Qualifiers: Edema type: unspecified Qualified Code(s): R60.9 - Edema, unspecified (4) SOB (shortness of breath) Code(s): R06.02 - SHORTNESS OF BREATH (5) Cor pulmonale Code(s): I27.81 - COR PULMONALE (CHRONIC)
--- NOTE | 2017-07-20 12:11 | PN ---
Progress Note (short form) - Note Progress Note: Pt seen and examined. Pt is OOB to chair She feels better than yesterday. Decreased shortness of breath. No chest pain or palpitations. O/E: Constitutional: Yes: Well Nourished, Mild Distress Eyes: Yes: Conjunctiva Clear HENT: Yes: Atraumatic, Normocephalic Neck: Yes: Supple Cardiovascular: Yes: Regular Rate and Rhythm Respiratory: Yes: Regular, SOB. No: Accessory Muscle Use Gastrointestinal: Yes: Normal Bowel Sounds, Abdomen, Obese, Ascites Edema: Yes Edema: improved than yesterday Neurological: Yes: Alert, Oriented Psychiatric: Yes: Alert, Oriented Temp Pulse Resp BP Pulse Ox 99.3 F 82 20 92/50 99 07/20/17 04:19 07/20/17 06:00 07/20/17 06:00 07/20/17 06:00 07/20/17 08:57 CBC, BMP 07/20/17 05:05 07/19/17 06:30 Current Medications Generic Name Dose Route Start Last Admin Trade Name Angelique PRN Reason Stop Dose Admin Acetaminophen 650 mg 07/18/17 19:11 Tylenol - PO Q6H PRN FEVER OR PAIN Enoxaparin Sodium 40 mg 07/19/17 17:45 07/19/17 22:19 Lovenox - SQ 40 mg DAILY [facility] Administration Furosemide 40 mg 07/20/17 09:45 Lasix Injection - IVPUSH DAILY [facility] Lidocaine 1 patch 07/19/17 10:00 07/19/17 10:00 Lidoderm Patch - TP 1 patch DAILY [facility] Administration Metoprolol Succinate 50 mg 07/20/17 10:00 Toprol Xl - PO BID [facility] Miscellaneous 1 each 07/18/17 19:15 07/19/17 22:20 Lidoderm Patch Removal MC 1 each DAILY@2200 [facility] Administration Ondansetron HCl 4 mg 07/18/17 19:11 Zofran Odt - SL Q8H PRN NAUSEA AND/OR VOMITING INR, PTT INR 1.35 (0.82-1.09) H 07/20/17 05:05 Anemia Thrombocytopenia Right heart failure HCM HTN Bili of 1.3 -cbc stable -US reviewed, cirrhosis /splenomegaly is noted. -GI eval -pending further w/u -Improved on IV diuresis -will follow
--- NOTE | 2017-07-20 12:22 | PN ---
Progress Note (short form) - Note Progress Note: cc: le edema, sob S: No cp, palps, dizzy, loc, pnd. sob/le edema a little better Current Medications Generic Name Dose Route Start Last Admin Trade Name Fregiovanna PRN Reason Stop Dose Admin Acetaminophen 650 mg 07/18/17 19:11 Tylenol - PO Q6H PRN FEVER OR PAIN Enoxaparin Sodium 40 mg 07/19/17 17:45 07/19/17 22:19 Lovenox - SQ 40 mg DAILY [facility] Administration Furosemide 40 mg 07/20/17 09:45 Lasix Injection - IVPUSH DAILY [facility] Lidocaine 1 patch 07/19/17 10:00 07/19/17 10:00 Lidoderm Patch - TP 1 patch DAILY [facility] Administration Metoprolol Succinate 50 mg 07/20/17 10:00 Toprol Xl - PO BID [facility] Miscellaneous 1 each 07/18/17 19:15 07/19/17 22:20 Lidoderm Patch Removal MC 1 each DAILY@2200 [facility] Administration Ondansetron HCl 4 mg 07/18/17 19:11 Zofran Odt - SL Q8H PRN NAUSEA AND/OR VOMITING pe: Vital Signs Period Temp Pulse Resp BP Sys/Patel Pulse Ox Last 24 Hr 97.5 F-99.3 F 70-85 18-20 92-120/47-80 99-99 nad no jvd rrr s1s2 nomrg cta bl nl eff aaox3 1 le edema bl, no c/c pos dp pt no carotid bruits no jaundice diaphoresis abd nt nd pos bs CBC,CMP WBC 5.2 K/mm3 (4.0-10.0) 07/20/17 05:05 RBC 3.26 M/mm3 (3.60-5.2) L 07/20/17 05:05 Hgb 9.5 GM/dL (10.7-15.3) L 07/20/17 05:05 Hct 28.9 % (32.4-45.2) L 07/20/17 05:05 MCV 88.8 fl (80-96) 07/20/17 05:05 MCH 29.1 pg (25.7-33.7) 07/20/17 05:05 MCHC 32.8 g/dl (32.0-36.0) 07/20/17 05:05 RDW 14.4 % (11.6-15.6) 07/20/17 05:05 Plt Count 86 K/MM3 (134-434) L 07/20/17 05:05 MPV 9.4 fl (7.5-11.1) 07/20/17 05:05 Neutrophils % 58.3 % (42.8-82.8) 07/20/17 05:05 Lymphocytes % 25.3 % (8-40) D 07/20/17 05:05 Monocytes % 11.4 % (3.8-10.2) H 07/20/17 05:05 Eosinophils % 4.2 % (0-4.5) 07/20/17 05:05 Basophils % 0.8 % (0-2.0) 07/20/17 05:05 Retic Count 2.61 % (0.5-1.5) H 07/20/17 05:05 Sodium 142 mmol/L (136-145) 07/19/17 06:30 Potassium 3.7 mmol/L (3.5-5.1) 07/19/17 06:30 Chloride 105 mmol/L (98-107) 07/19/17 06:30 Carbon Dioxide 33 mmol/L (21-32) H 07/19/17 06:30 Anion Gap 4 (8-16) L 07/19/17 06:30 BUN 9 mg/dL (7-18) 07/19/17 06:30 Creatinine 0.6 mg/dL (0.55-1.02) 07/19/17 06:30 Creat Clearance w eGFR > 60 (>60) 07/19/17 06:30 Random Glucose 79 mg/dL (74-106) D 07/19/17 06:30 Hemoglobin A1c % 4.2 % (4.8-6.0) L 07/19/17 06:30 Calcium 7.8 mg/dL (8.5-10.1) L 07/19/17 06:30 Iron 67 ug/dL (27-139) 07/19/17 06:30 Ferritin 127.984 ng/ml (6.9-282.5) 07/20/17 05:05 Total Bilirubin 1.2 mg/dL (0.2-1.0) H 07/19/17 06:30 AST 37 U/L (15-37) 07/19/17 06:30 ALT 19 U/L (12-78) 07/19/17 06:30 Alkaline Phosphatase 125 U/L (45-117) H D 07/19/17 06:30 LD Total 203 U/L (84-246) 07/20/17 05:05 Creatine Kinase 106 IU/L (26-192) 07/18/17 13:11 Troponin I 0.03 ng/ml (0.00-0.05) 07/18/17 13:11 B-Natriuretic Peptide 583.44 pg/ml (5-125) H 07/18/17 13:11 Total Protein 6.1 g/dl (6.4-8.2) L 07/19/17 06:30 Albumin 2.0 g/dl (3.4-5.0) L 07/19/17 06:30 Triglycerides 51 mg/dL (35-160) 07/19/17 06:30 Cholesterol 100 mg/dL (50-200) 07/19/17 06:30 Total LDL Cholesterol 57 mg/dL (5-100) 07/19/17 06:30 HDL Cholesterol 32 mg/dL (40-60) L 07/19/17 06:30 Vitamin B12 388 pg/ml (180-914) 07/20/17 05:05 ecg 07/18/17: sr, nl intervals, no ischemic changes tele: SR cxr: clear lungs echo 04/2017: tds; lvef>70%, mild josie, lvot obstruction, nl rv, mac, mikala, findings c/w hcm a/p: 71 f hx HCM, venous insuff/le edema, here with sob, le edema. acute on chronic right sided chf/hcm, sob, venous insuff/le edema: -pt with chronic le edema and sob. She was supposed to be on torsemide 100 qd at home but she self d/c'ed months a go because she felt it was making her confused. No signs pulm congestion here, mostly RHF. No signs acs. started trial of lasix 40 iv bid. Monitor daily cr, lytes, wt. -07/19: now s/p 3 doses of lasix 40 mg IV (BID yesterday and a dose this am). sbp drop to 80's this am. will hold IV bid lasix --> transition to daily dosing. ---07/20: cont lasix 40 iv qd. holding ARB HCM: -seen on recent echo as outpt. cont bb. pancytopenia. - denies hx. mgm't per pmd. dc tele
[2017-07-20] MEDS: ENOXAPARIN NA (PORCINE) 40 MG/0.4 ML DISP.SYRIN SQ SCH (12:30)
[2017-07-20] MEDS: LIDOCAINE 5% TOPICAL PATCH TP SCH (12:31)
[2017-07-20] MEDS: METOPROLOL SUCCINATE 50 MG TAB.SR.24H (FP) PO SCH ×2 (12:31→21:56)
[2017-07-20] MEDS: FUROSEMIDE 40 MG/4 ML INJECTABLE VIAL IVPUSH SCH ×2 (12:31→14:38)
--- NOTE | 2017-07-20 13:13 | CON.GI ---
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 History of HTN, hypertrophic cardiomyopathy, obese. Admitted with decompensaetd CHF, right heart failure for fluid and medications management. Noted to have small ascites and liver US suggestive of cirrhosis. The patient reports no known liver issues in the past. Doesn't recall being told she had abnormal liver enzymes, hepatitis , etc. 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 Denies chronic alcohol use, NSAIDs, history of autoimmune, or iron disorders. Not diabetic. Overweight sine 7 yo. Reports no weight loss, jaundice , dysphagia, odynophagia, melena, hematochezia, changes in bowels. Has non- contributory family history. - History Source History Provided By: Patient Limitations to Obtaining History: No Limitations - Past Medical History Cardio/Vascular: Yes: CHF, HTN - Alcohol/Substance Use Hx Alcohol Use: No - Smoking History Smoking history: Never smoked Aproximately how many cigarettes per day: 0 Home Medications - Allergies Allergies/Adverse Reactions: Allergies Allergy/AdvReac Type Severity Reaction Status Date / Time No Known Allergies Allergy Verified 07/18/17 10:44 - Home Medications Home Medications: Ambulatory Orders Metoprolol Succinate [Toprol Xl] 100 mg PO DAILY 01/15/15 Family Disease History - Family Disease History Family History: Unremarkable (non-contributory) Review of Systems Findings/Remarks: Please refer to H&P Physical Exam-GI Vital Signs: Vital Signs Temperature 99.3 F 07/20/17 04:19 Pulse Rate 82 07/20/17 06:00 Respiratory Rate 20 07/20/17 06:00 Blood Pressure 92/50 07/20/17 06:00 O2 Sat by Pulse Oximetry (%) 99 07/20/17 08:57 Constitutional: Yes: Well Nourished, No Distress, Calm Eyes: Yes: Conjunctiva Clear HENT: Yes: Atraumatic Neck: Yes: Supple Cardiovascular: Yes: Regular Rate and Rhythm Respiratory: Yes: Regular Gastrointestinal Inspection: No: Ascites ...Auscultate: Yes: Normoactive Bowel Sounds ...Palpate: Yes: Soft. No: Firm/Rigid, Guarding, Tenderness, Tenderness, Rebound Neurological: Yes: Alert, Oriented Labs: CBC, BMP 07/20/17 05:05 INR, PTT INR 1.35 (0.82-1.09) H 07/20/17 05:05 Laboratory Results - last 24 hr 07/19/17 07/20/17 07/20/17 17:00 05:05 05:05 WBC 5.2 RBC 3.26 L Hgb 9.5 L Hct 28.9 L MCV 88.8 MCH 29.1 MCHC 32.8 RDW 14.4 Plt Count 86 L MPV 9.4 Total Counted 100 Neutrophils % 58.3 Neutrophils % (Manual) 60.0 Lymphocytes % 25.3 D Lymphocytes % (Manual) 23.0 Monocytes % 11.4 H Monocytes % (Manual) 9 Eosinophils % 4.2 Eosinophils % (Manual) 8.0 H Basophils % 0.8 Sodium Potassium Chloride Carbon Dioxide Anion Gap BUN Creatinine Creat Clearance w eGFR Random Glucose Calcium Total Bilirubin AST ALT Alkaline Phosphatase Total Protein Albumin Vitamin B12 388 Hepatitis A IgM Ab Negative Hep Bs Antigen Negative Hep B Core IgM Ab Negative Hepatitis C Ab (EIA) 0.1 07/20/17 06:00 WBC RBC Hgb Hct MCV MCH MCHC RDW Plt Count MPV Total Counted Neutrophils % Neutrophils % (Manual) Lymphocytes % Lymphocytes % (Manual) Monocytes % Monocytes % (Manual) Eosinophils % Eosinophils % (Manual) Basophils % Sodium 142 Potassium 4.0 Chloride 102 Carbon Dioxide 34 H Anion Gap 6 L BUN 9 Creatinine 0.7 Creat Clearance w eGFR > 60 Random Glucose 129 H D Calcium 8.6 Total Bilirubin 1.3 H AST 46 H D ALT 22 Alkaline Phosphatase 116 Total Protein 6.7 Albumin 2.2 L Vitamin B12 Hepatitis A IgM Ab Hep Bs Antigen Hep B Core IgM Ab Hepatitis C Ab (EIA) Imaging - Results Ultrasound: Report Reviewed (also see HPI) Problem List - Problems (1) Chronic liver disease and cirrhosis Code(s): K74.60 - UNSPECIFIED CIRRHOSIS OF LIVER; K76.9 - LIVER DISEASE, UNSPECIFIED (2) CHF (congestive heart failure) Code(s): I50.9 - HEART FAILURE, UNSPECIFIED Qualifiers: Congestive heart failure type: unspecified congestive heart failure type Congestive heart failure chronicity: unspecified congestive heart failure chronicity Qualified Code(s): I50.9 - Heart failure, unspecified (3) Ascites Code(s): R18.8 - OTHER ASCITES Qualifiers: Ascites type: other type Qualified Code(s): R18.8 - Other ascites Assessment/Plan A 71 yof with normocytic, normochromic anemia, metabolic syndrome and RHF found to have possible liver cirrhosis (mild cholestasis, elevated PT, thrombocytopenia, and the above US findings). Both, metabolic syndrome and right heart failure can contribute to current liver state. Diagnostic parasentesis can help differentiate cardiac vs hepatic etiology of the ascites. US guided, diagnostic parasentesis (for albumin, total protein) Will obtain direct bili, LIZETH, HBsAb, HAV IgG and vaccinate if negative Will need an outpatient liver work up to r/o other than metabolic and CHF etiologies of liver cirrhosis as well as EGD for esophageal varices assessment. Diagnostic colonoscopy for anemia in 71 yo.
[2017-07-20 13:54] LABS: ALBUMIN 2.2 g/dl (3.4-5.0)
[2017-07-20 13:56] LABS: ALK PHOS 116 U/L (45-117); ANION GAP 6 (8-16); BILIRUBIN,TOTAL 1.3 mg/dL (0.2-1.0); CALCIUM 8.6 mg/dL (8.5-10.1); CO2 34 mmol/L (21-32); CREATININE 0.7 mg/dL (0.55-1.02); GLUCOSE,RANDOM 129 mg/dL (74-106); SGOT/AST 46 U/L (15-37); SGPT/ALT 22 U/L (12-78); TOT PROT 6.7 g/dl (6.4-8.2)
--- NOTE | 2017-07-20 14:42 | PN ---
Progress Note, Physician History of Present Illness: Pulmonology consult follow up Patient seen and examined at bedside. She states that she feels better today and endorses improvement in her work of breathing. The patient continues to complain of leg edema which has minimally improved. - Current Medication List Current Medications: Active Medications Acetaminophen (Tylenol -) 650 mg PO Q6H PRN PRN Reason: FEVER OR PAIN Enoxaparin Sodium (Lovenox -) 40 mg SQ DAILY [facility] Last Admin: 07/20/17 12:30 Dose: 40 mg Furosemide (Lasix Injection -) 40 mg IVPUSH DAILY [facility] Lidocaine (Lidoderm Patch -) 1 patch TP DAILY [facility] Last Admin: 07/20/17 12:31 Dose: 1 patch Metoprolol Succinate (Toprol Xl -) 50 mg PO BID [facility] Last Admin: 07/20/17 12:31 Dose: 50 mg Miscellaneous (Lidoderm Patch Removal) 1 each MC DAILY@2200 [facility] Last Admin: 07/19/17 22:20 Dose: 1 each Ondansetron HCl (Zofran Odt -) 4 mg SL Q8H PRN PRN Reason: NAUSEA AND/OR VOMITING - Objective Vital Signs: Vital Signs Temperature 99.3 F 07/20/17 04:19 Pulse Rate 82 07/20/17 06:00 Respiratory Rate 20 07/20/17 06:00 Blood Pressure 92/50 07/20/17 06:00 O2 Sat by Pulse Oximetry (%) 99 07/20/17 08:57 Constitutional: Yes: Well Nourished, No Distress, Calm HENT: Yes: Atraumatic, Normocephalic Neck: Yes: Supple, Trachea Midline Cardiovascular: Yes: Regular Rate and Rhythm, JVD, Murmur (late systolic murmur heard at the right upper sternal border), S1, S2. No: Bruit, Gallop, Rub Respiratory: Yes: Regular, Other (inspiratory crackles heard in mid and lower lung coughlin worse on the left) Edema: Yes Edema: LLE: 4+, RLE: 4+ Labs: CBC, BMP 07/20/17 05:05 07/20/17 06:00 INR, PTT INR 1.35 (0.82-1.09) H 07/20/17 05:05 Assessment/Plan The patient is a 71 yo f w/ PMH HTN, HCM admitted to the hospital for the treatment of acute CHF exacerbation. Patient's breathing continues to improve though her edema is only minimally improved. #SOB, Edema and weakness 2/2 CHF exacerbation -Caution with diuresis as the patient has a history of hypotension on lasix -currently of metoprolol 50 BID. cardiac medications as per cardiology -Echo pending #Thrombocytopenia -abdominal US shows possible cirrhosis and splenomegaly w/ small amount of ascites/free fluid -coags elevated -GI onboard -DVT prophylaxsis
[2017-07-20 14:59] LABS: TOTAL CELLS COUNTED 100
[2017-07-20] MEDS: LIDOCAINE PATCH REMOVAL MC SCH (21:56)
[2017-07-21] MEDS: FUROSEMIDE 40 MG/4 ML INJECTABLE VIAL IVPUSH SCH (10:11)
[2017-07-21] MEDS: LIDOCAINE 5% TOPICAL PATCH TP SCH (10:11)
[2017-07-21] MEDS: METOPROLOL SUCCINATE 50 MG TAB.SR.24H (FP) PO SCH ×2 (10:16→21:47)
[2017-07-21] MEDS: ENOXAPARIN NA (PORCINE) 40 MG/0.4 ML DISP.SYRIN SQ SCH (10:23)
--- NOTE | 2017-07-21 10:48 | PN ---
Progress Note, Physician Chief Complaint: AWAKE ALERT C/O LEG EDEMA - Current Medication List Current Medications: Active Medications Acetaminophen (Tylenol -) 650 mg PO Q6H PRN PRN Reason: FEVER OR PAIN Enoxaparin Sodium (Lovenox -) 40 mg SQ DAILY [facility] Last Admin: 07/21/17 10:23 Dose: Not Given Furosemide (Lasix Injection -) 40 mg IVPUSH DAILY [facility] Last Admin: 07/21/17 10:11 Dose: 40 mg Lidocaine (Lidoderm Patch -) 1 patch TP DAILY [facility] Last Admin: 07/21/17 10:11 Dose: 1 patch Metoprolol Succinate (Toprol Xl -) 50 mg PO BID [facility] Last Admin: 07/21/17 10:16 Dose: 50 mg Miscellaneous (Lidoderm Patch Removal) 1 each MC DAILY@2200 [facility] Last Admin: 07/20/17 21:56 Dose: 1 each Ondansetron HCl (Zofran Odt -) 4 mg SL Q8H PRN PRN Reason: NAUSEA AND/OR VOMITING Last Admin: 07/21/17 10:11 Dose: 4 mg - Objective Vital Signs: Vital Signs Temperature 98.1 F 07/21/17 09:00 Pulse Rate 73 07/21/17 09:00 Respiratory Rate 20 07/21/17 09:00 Blood Pressure 128/67 07/21/17 09:00 O2 Sat by Pulse Oximetry (%) 96 07/20/17 21:00 Constitutional: Yes: Mild Distress Eyes: Yes: WNL HENT: Yes: WNL Neck: Yes: WNL Cardiovascular: Yes: WNL Respiratory: Yes: Poor Air Entry, SOB Gastrointestinal: Yes: WNL Genitourinary: Yes: WNL Musculoskeletal: Yes: Joint Swelling Extremities: Yes: WNL Edema: Yes Edema: RLE: 2+ Peripheral Pulses WNL: Yes Integumentary: Yes: WNL Wound/Incision: Yes: Clean/Dry Neurological: Yes: WNL ...Motor Strength: WNL Psychiatric: Yes: WNL Labs: CBC, BMP 07/20/17 05:05 07/20/17 06:00 INR, PTT INR 1.35 (0.82-1.09) H 07/20/17 05:05 Problem List - Problems (1) CHF (congestive heart failure) Code(s): I50.9 - HEART FAILURE, UNSPECIFIED Qualifiers: Congestive heart failure type: unspecified congestive heart failure type Congestive heart failure chronicity: unspecified congestive heart failure chronicity Qualified Code(s): I50.9 - Heart failure, unspecified (2) Edema Code(s): R60.9 - EDEMA, UNSPECIFIED Qualifiers: Edema type: unspecified Qualified Code(s): R60.9 - Edema, unspecified (3) SOB (shortness of breath) Code(s): R06.02 - SHORTNESS OF BREATH Assessment/Plan LASIX HELD DO TO LOW BP DISCUSS WITH CARDIOLOGY OOB TO CHAIR PT EVAL CARDIOLOGY AND PULM F/U DVT PROPHYLAXIS
--- NOTE | 2017-07-21 10:54 | PN ---
Progress Note (short form) - Note Progress Note: cc: le edema, sob S: No cp, palps, dizzy, loc, pnd. sob/le edema a little better Current Medications Generic Name Dose Route Start Last Admin Trade Name Angelique PRN Reason Stop Dose Admin Acetaminophen 650 mg 07/18/17 19:11 Tylenol - PO Q6H PRN FEVER OR PAIN Enoxaparin Sodium 40 mg 07/19/17 17:45 07/21/17 10:23 Lovenox - SQ Not Given DAILY TAMMY Furosemide 40 mg 07/20/17 09:45 07/21/17 10:11 Lasix Injection - IVPUSH 40 mg DAILY [facility] Administration Lidocaine 1 patch 07/19/17 10:00 07/21/17 10:11 Lidoderm Patch - TP 1 patch DAILY [facility] Administration Metoprolol Succinate 50 mg 07/20/17 10:00 07/21/17 10:16 Toprol Xl - PO 50 mg BID TAMMY Administration Miscellaneous 1 each 07/18/17 19:15 07/20/17 21:56 Lidoderm Patch Removal MC 1 each DAILY@2200 TAMMY Administration Ondansetron HCl 4 mg 07/18/17 19:11 07/21/17 10:11 Zofran Odt - SL 4 mg Q8H PRN Administration NAUSEA AND/OR VOMITING Polyethylene Glycol 17 gm 07/21/17 11:00 Miralax (For Daily Use) - PO DAILY [facility] Senna 1 tab 07/21/17 11:00 Senna - PO HS TAMMY pe: Vital Signs Period Temp Pulse Resp BP Sys/Patel Pulse Ox Last 24 Hr 97.5 F-99.1 F 70-74 20-20 105-156/59-85 96 nad no jvd rrr s1s2 nomrg cta bl nl eff aaox3 1 le edema bl, no c/c pos dp pt no carotid bruits no jaundice diaphoresis abd nt nd pos bs CBC, BMP 07/20/17 05:05 07/20/17 06:00 ecg 07/18/17: sr, nl intervals, no ischemic changes tele: SR cxr: clear lungs echo 04/2017: tds; lvef>70%, mild josie, lvot obstruction, nl rv, mac, mikala, findings c/w hcm echo 06/2017: nl lv/rv, mod olaf, mod mr, mild tr, nl rvsp a/p: 71 f hx HCM, venous insuff/le edema, here with sob, le edema. acute on chronic right sided chf/hcm, sob, venous insuff/le edema: -pt with chronic le edema and sob. She was supposed to be on torsemide 100 qd at home but she self d/c'ed months a go because she felt it was making her confused. No signs pulm congestion here, mostly RHF. No signs acs. started trial of lasix 40 iv bid. Monitor daily cr, lytes, wt. -07/19: now s/p 3 doses of lasix 40 mg IV (BID yesterday and a dose this am). sbp drop to 80's this am. will hold IV bid lasix --> transition to daily dosing. -07/20-30: cont lasix 40 iv qd. holding ARB HCM: -seen on recent echo as outpt. cont bb. pancytopenia. - denies hx. mgm't per pmd. cirrhosis: -gi following. no cardiac contraindications to paracentesis if needed dc tele
[2017-07-21] MEDS: SENNOSIDES 8.6MG TABLET (FP) PO SCH ×2 (11:36→21:47)
[2017-07-21] MEDS: POLYETHYLENE GLYCOL 3350 119 GM BTL PO SCH (11:36)
--- NOTE | 2017-07-21 13:47 | PN ---
Progress Note (short form) - Note Progress Note: PULMONARY States breathing slightly improved. No chest pain. No cough or wheezing. Going for paracentesis. Last Vital Signs Temp Pulse Resp BP Pulse Ox 98.1 F 73 20 128/67 96 07/21/17 09:00 07/21/17 09:00 07/21/17 09:00 07/21/17 09:00 07/21/17 09:00 Gen: NAD at rest Heart: RRR, +systolic murmur Lung: decreased breath sounds at the bases Abd: softly distended, nontender Ext: + edema CBC, BMP 07/20/17 05:05 07/20/17 06:00 Active Medications Acetaminophen (Tylenol -) 650 mg PO Q6H PRN PRN Reason: FEVER OR PAIN Enoxaparin Sodium (Lovenox -) 40 mg SQ DAILY [facility] Last Admin: 07/21/17 10:23 Dose: Not Given Furosemide (Lasix Injection -) 40 mg IVPUSH DAILY [facility] Last Admin: 07/21/17 10:11 Dose: 40 mg Lidocaine (Lidoderm Patch -) 1 patch TP DAILY [facility] Last Admin: 07/21/17 10:11 Dose: 1 patch Metoprolol Succinate (Toprol Xl -) 50 mg PO BID [facility] Last Admin: 07/21/17 10:16 Dose: 50 mg Miscellaneous (Lidoderm Patch Removal) 1 each MC DAILY@2200 [facility] Last Admin: 07/20/17 21:56 Dose: 1 each Ondansetron HCl (Zofran Odt -) 4 mg SL Q8H PRN PRN Reason: NAUSEA AND/OR VOMITING Last Admin: 07/21/17 10:11 Dose: 4 mg Polyethylene Glycol (Miralax (For Daily Use) -) 17 gm PO DAILY [facility] Last Admin: 07/21/17 11:36 Dose: 17 grams Senna (Senna -) 1 tab PO HS [facility] Last Admin: 07/21/17 11:36 Dose: 1 tab A/P Hypertrophic Cardiomyopathy Right Heart Failure HTN Liver Cirrhosis Ascites Elevated LFTs Thromboctyopenia - continue lasix - monitor urine output, creatinine - for diagnostic paracentesis - beta dana, ARB if BP tolerates - DVT prophylaxis
[2017-07-21 20:11] LABS: PERITONEAL FLUID LYMPHOCYTE 35 %; PERITONEAL FLUID MACROPHAGE 58 %; PERITONEAL FLUID MESOTHELIAL 5 %; PERITONEAL FLUID MONOCYTE 2 %; PERITONEAL FLUID NEUTROPHIL 0 %
[2017-07-21] MEDS: LIDOCAINE PATCH REMOVAL MC SCH (21:47)
[2017-07-22 08:09] LABS: HEMATOCRIT 29.5 % (34.0-46.6)
[2017-07-22] MEDS: METOPROLOL SUCCINATE 50 MG TAB.SR.24H (FP) PO SCH ×2 (09:24→21:23)
[2017-07-22] MEDS: LIDOCAINE 5% TOPICAL PATCH TP SCH (09:24)
[2017-07-22] MEDS: FUROSEMIDE 40 MG/4 ML INJECTABLE VIAL IVPUSH SCH (09:24)
[2017-07-22] MEDS: POLYETHYLENE GLYCOL 3350 119 GM BTL PO SCH (09:25)
[2017-07-22] MEDS: ENOXAPARIN NA (PORCINE) 40 MG/0.4 ML DISP.SYRIN SQ SCH (10:41)
--- NOTE | 2017-07-22 11:19 | PN ---
Progress Note (short form) - Note Progress Note: cc: le edema, sob S: No cp, palps, dizzy, loc, pnd. sob/le edema a little better Current Medications Generic Name Dose Route Start Last Admin Trade Name Angelique PRN Reason Stop Dose Admin Acetaminophen 650 mg 07/18/17 19:11 Tylenol - PO Q6H PRN FEVER OR PAIN Enoxaparin Sodium 40 mg 07/19/17 17:45 07/21/17 10:23 Lovenox - SQ Not Given DAILY [facility] Furosemide 40 mg 07/20/17 09:45 07/22/17 09:24 Lasix Injection - IVPUSH 40 mg DAILY [facility] Administration Lidocaine 1 patch 07/19/17 10:00 07/22/17 09:24 Lidoderm Patch - TP 1 patch DAILY [facility] Administration Metoprolol Succinate 50 mg 07/20/17 10:00 07/22/17 09:24 Toprol Xl - PO 50 mg BID [facility]AMMY Administration Miscellaneous 1 each 07/18/17 19:15 07/21/17 21:47 Lidoderm Patch Removal MC 1 each DAILY@2200 [facility] Administration Ondansetron HCl 4 mg 07/18/17 19:11 07/21/17 10:11 Zofran Odt - SL 4 mg Q8H PRN Administration NAUSEA AND/OR VOMITING Polyethylene Glycol 17 gm 07/21/17 11:00 07/22/17 09:25 Miralax (For Daily Use) - PO 17 grams DAILY [facility] Administration Senna 1 tab 07/21/17 11:00 07/21/17 21:47 Senna - PO 1 tab HS [facility]AMMY Administration pe: Vital Signs Period Temp Pulse Resp BP Sys/Patel Pulse Ox Last 24 Hr 97.8 F-98.5 F 68-73 20-20 97-123/51-70 92 nad no jvd rrr s1s2 nomrg cta bl nl eff aaox3 1 le edema bl, no c/c pos dp pt no carotid bruits no jaundice diaphoresis abd nt nd pos bs CBC, BMP 07/20/17 05:05 07/20/17 06:00 ecg 07/18/17: sr, nl intervals, no ischemic changes tele: SR cxr: clear lungs echo 04/2017: tds; lvef>70%, mild josie, lvot obstruction, nl rv, mac, mikala, findings c/w hcm echo 06/2017: nl lv/rv, mod olaf, mod mr, mild tr, nl rvsp a/p: 71 f hx HCM, venous insuff/le edema, here with sob, le edema. acute on chronic right sided chf/hcm, sob, venous insuff/le edema: -pt with chronic le edema and sob. She was supposed to be on torsemide 100 qd at home but she self d/c'ed months a go because she felt it was making her confused. No signs pulm congestion here, mostly RHF. No signs acs. started trial of lasix 40 iv bid. Monitor daily cr, lytes, wt. -07/19: now s/p 3 doses of lasix 40 mg IV (BID yesterday and a dose this am). sbp drop to 80's this am. will hold IV bid lasix --> transition to daily dosing. -07/20-31: wt decreasing, cr stable, cont lasix 40 iv qd. holding ARB HCM: -seen on recent echo as outpt. cont bb. pancytopenia. - denies hx. mgm't per pmd. cirrhosis: -gi following. s/p paracentesis, results pending
--- NOTE | 2017-07-22 11:38 | PN ---
Progress Note, Physician History of Present Illness: PULMONARY ALERT,FEELING BETTER,OOB-CHAIR,LESS DYSPNEIC,-CP - Current Medication List Current Medications: Active Medications Acetaminophen (Tylenol -) 650 mg PO Q6H PRN PRN Reason: FEVER OR PAIN Enoxaparin Sodium (Lovenox -) 40 mg SQ DAILY [facility] Last Admin: 07/21/17 10:23 Dose: Not Given Furosemide (Lasix Injection -) 40 mg IVPUSH DAILY [facility] Last Admin: 07/22/17 09:24 Dose: 40 mg Lidocaine (Lidoderm Patch -) 1 patch TP DAILY [facility] Last Admin: 07/22/17 09:24 Dose: 1 patch Metoprolol Succinate (Toprol Xl -) 50 mg PO BID [facility] Last Admin: 07/22/17 09:24 Dose: 50 mg Miscellaneous (Lidoderm Patch Removal) 1 each MC DAILY@2200 [facility] Last Admin: 07/21/17 21:47 Dose: 1 each Ondansetron HCl (Zofran Odt -) 4 mg SL Q8H PRN PRN Reason: NAUSEA AND/OR VOMITING Last Admin: 07/21/17 10:11 Dose: 4 mg Polyethylene Glycol (Miralax (For Daily Use) -) 17 gm PO DAILY [facility] Last Admin: 07/22/17 09:25 Dose: 17 grams Senna (Senna -) 1 tab PO HS [facility] Last Admin: 07/21/17 21:47 Dose: 1 tab - Objective Vital Signs: Vital Signs Temperature 98.1 F 07/22/17 09:00 Pulse Rate 69 07/22/17 09:00 Respiratory Rate 20 07/22/17 09:00 Blood Pressure 111/52 07/22/17 09:00 O2 Sat by Pulse Oximetry (%) 92 L 07/22/17 09:00 Constitutional: Yes: Well Nourished, Calm Eyes: Yes: WNL HENT: Yes: WNL Neck: Yes: WNL Cardiovascular: Yes: Regular Rate and Rhythm, S1, S2 Respiratory: Yes: Diminished Gastrointestinal: Yes: Normal Bowel Sounds, Soft Extremities: Yes: WNL Edema: Yes Problem List - Problems (1) Thrombocytopenia Code(s): D69.6 - THROMBOCYTOPENIA, UNSPECIFIED (2) CHF (congestive heart failure) Code(s): I50.9 - HEART FAILURE, UNSPECIFIED Qualifiers: Congestive heart failure type: unspecified congestive heart failure type Congestive heart failure chronicity: unspecified congestive heart failure chronicity Qualified Code(s): I50.9 - Heart failure, unspecified (3) Edema Code(s): R60.9 - EDEMA, UNSPECIFIED Qualifiers: Edema type: unspecified Qualified Code(s): R60.9 - Edema, unspecified (4) SOB (shortness of breath) Code(s): R06.02 - SHORTNESS OF BREATH (5) Cor pulmonale Code(s): I27.81 - COR PULMONALE (CHRONIC) Assessment/Plan ASSESSMENT AND PLAN: Hypertrophic Cardiomyopathy HTN Elevated LFTs Thromboctyopenia - cautious use of diuretics - beta dana - monitor lytes,plt ct - DVT prophylaxis DR DOLAN Problem List - Problems (1) Thrombocytopenia Code(s): D69.6 - THROMBOCYTOPENIA, UNSPECIFIED (2) CHF (congestive heart failure) Code(s): I50.9 - HEART FAILURE, UNSPECIFIED Qualifiers: Congestive heart failure type: unspecified congestive heart failure type Congestive heart failure chronicity: unspecified congestive heart failure chronicity Qualified Code(s): I50.9 - Heart failure, unspecified (3) Edema Code(s): R60.9 - EDEMA, UNSPECIFIED Qualifiers: Edema type: unspecified Qualified Code(s): R60.9 - Edema, unspecified (4) SOB (shortness of breath) Code(s): R06.02 - SHORTNESS OF BREATH (5) Cor pulmonale Code(s): I27.81 - COR PULMONALE (CHRONIC)
--- NOTE | 2017-07-22 11:58 | PN ---
Progress Note, Physician Chief Complaint: AWAKE ALERT FEELING BETTER - Current Medication List Current Medications: Active Medications Acetaminophen (Tylenol -) 650 mg PO Q6H PRN PRN Reason: FEVER OR PAIN Enoxaparin Sodium (Lovenox -) 40 mg SQ DAILY [facility] Last Admin: 07/21/17 10:23 Dose: Not Given Furosemide (Lasix Injection -) 40 mg IVPUSH DAILY [facility] Last Admin: 07/22/17 09:24 Dose: 40 mg Lidocaine (Lidoderm Patch -) 1 patch TP DAILY [facility] Last Admin: 07/22/17 09:24 Dose: 1 patch Metoprolol Succinate (Toprol Xl -) 50 mg PO BID [facility] Last Admin: 07/22/17 09:24 Dose: 50 mg Miscellaneous (Lidoderm Patch Removal) 1 each MC DAILY@2200 [facility] Last Admin: 07/21/17 21:47 Dose: 1 each Ondansetron HCl (Zofran Odt -) 4 mg SL Q8H PRN PRN Reason: NAUSEA AND/OR VOMITING Last Admin: 07/21/17 10:11 Dose: 4 mg Polyethylene Glycol (Miralax (For Daily Use) -) 17 gm PO DAILY [facility] Last Admin: 07/22/17 09:25 Dose: 17 grams Senna (Senna -) 1 tab PO HS [facility] Last Admin: 07/21/17 21:47 Dose: 1 tab - Objective Vital Signs: Vital Signs Temperature 98.1 F 07/22/17 09:00 Pulse Rate 69 07/22/17 09:00 Respiratory Rate 20 07/22/17 09:00 Blood Pressure 111/52 07/22/17 09:00 O2 Sat by Pulse Oximetry (%) 92 L 07/22/17 09:00 Constitutional: Yes: Mild Distress Eyes: Yes: WNL HENT: Yes: WNL Neck: Yes: WNL Cardiovascular: Yes: WNL Respiratory: Yes: On Nasal O2, Rales, SOB Gastrointestinal: Yes: WNL Genitourinary: Yes: WNL Musculoskeletal: Yes: WNL Extremities: Yes: WNL Edema: Yes Peripheral Pulses WNL: Yes Integumentary: Yes: WNL Wound/Incision: Yes: Clean/Dry Neurological: Yes: WNL ...Motor Strength: WNL Psychiatric: Yes: WNL Labs: CBC, BMP 07/20/17 05:05 07/20/17 06:00 INR, PTT INR 1.35 (0.82-1.09) H 07/20/17 05:05 Problem List - Problems (1) CHF (congestive heart failure) Code(s): I50.9 - HEART FAILURE, UNSPECIFIED Qualifiers: Congestive heart failure type: unspecified congestive heart failure type Congestive heart failure chronicity: unspecified congestive heart failure chronicity Qualified Code(s): I50.9 - Heart failure, unspecified (2) Edema Code(s): R60.9 - EDEMA, UNSPECIFIED Qualifiers: Edema type: unspecified Qualified Code(s): R60.9 - Edema, unspecified (3) SOB (shortness of breath) Code(s): R06.02 - SHORTNESS OF BREATH Assessment/Plan LASIX HELD DO TO LOW BP DISCUSS WITH CARDIOLOGY OOB TO CHAIR PT EVAL CARDIOLOGY AND PULM F/U DVT PROPHYLAXIS GI WORKUP APPRECIATED NEGATIVE FOR ACUTE HEPATITIS CAN HAVE VACCINE HEP B OUTPATIENT
--- NOTE | 2017-07-22 12:33 | PN ---
Progress Note, Physician History of Present Illness: No acute events. Comfortable. Diagnostic parasenteis results are indicative of liver cirrhosis. Not immune to HBV. HCV negative. - Current Medication List Current Medications: Active Medications Acetaminophen (Tylenol -) 650 mg PO Q6H PRN PRN Reason: FEVER OR PAIN Enoxaparin Sodium (Lovenox -) 40 mg SQ DAILY [facility] Last Admin: 07/21/17 10:23 Dose: Not Given Furosemide (Lasix Injection -) 40 mg IVPUSH DAILY [facility] Last Admin: 07/22/17 09:24 Dose: 40 mg Lidocaine (Lidoderm Patch -) 1 patch TP DAILY [facility] Last Admin: 07/22/17 09:24 Dose: 1 patch Metoprolol Succinate (Toprol Xl -) 50 mg PO BID [facility] Last Admin: 07/22/17 09:24 Dose: 50 mg Miscellaneous (Lidoderm Patch Removal) 1 each MC DAILY@2200 [facility] Last Admin: 07/21/17 21:47 Dose: 1 each Ondansetron HCl (Zofran Odt -) 4 mg SL Q8H PRN PRN Reason: NAUSEA AND/OR VOMITING Last Admin: 07/21/17 10:11 Dose: 4 mg Polyethylene Glycol (Miralax (For Daily Use) -) 17 gm PO DAILY [facility] Last Admin: 07/22/17 09:25 Dose: 17 grams Senna (Senna -) 1 tab PO HS [facility] Last Admin: 07/21/17 21:47 Dose: 1 tab - Objective Vital Signs: Vital Signs Temperature 98.1 F 07/22/17 09:00 Pulse Rate 69 07/22/17 09:00 Respiratory Rate 20 07/22/17 09:00 Blood Pressure 111/52 07/22/17 09:00 O2 Sat by Pulse Oximetry (%) 92 L 07/22/17 09:00 Constitutional: Yes: No Distress, Calm Eyes: Yes: Conjunctiva Clear HENT: Yes: Atraumatic Neck: Yes: Supple Cardiovascular: Yes: Regular Rate and Rhythm Respiratory: Yes: Regular Gastrointestinal: Yes: Normal Bowel Sounds, Soft Neurological: Yes: Alert, Oriented Labs: CBC, BMP 07/20/17 05:05 07/20/17 06:00 INR, PTT INR 1.35 (0.82-1.09) H 07/20/17 05:05 Laboratory Results - last 24 hr 07/20/17 07/21/17 07/21/17 05:05 05:05 05:05 Hct 29.5 L Haptoglobin 86 Iron 73 TIBC 170 L Iron Saturation 43 Tumor Marker AFP 1.4 Folate 1263 Folate Hemolysate 372.6 Peritoneal WBC Peritoneal RBC Periton Neutrophils Periton Lymphocytes Peritoneal Monocytes Periton Mesothelial Periton Macrophages Peritoneal Tot Protein Peritoneal Albumin Peritoneal LDH Peritoneal Glucose Peritoneal Amylase Peritoneal Triglycerid Hep A IgM Ab Confirm Negative Hepatitis A Ab Total Positive H Hep Bs Antibody Non reactive 07/21/17 15:00 Hct Haptoglobin Iron TIBC Iron Saturation Tumor Marker AFP Folate Folate Hemolysate Peritoneal WBC 500 Peritoneal RBC 1667 Periton Neutrophils 0 Periton Lymphocytes 35 Peritoneal Monocytes 2 Periton Mesothelial 5 Periton Macrophages 58 Peritoneal Tot Protein 2 Peritoneal Albumin 1 Peritoneal LDH 78 Peritoneal Glucose 114 Peritoneal Amylase 50 Peritoneal Triglycerid 23 Hep A IgM Ab Confirm Hepatitis A Ab Total Hep Bs Antibody Problem List - Problems (1) Chronic liver disease and cirrhosis Code(s): K74.60 - UNSPECIFIED CIRRHOSIS OF LIVER; K76.9 - LIVER DISEASE, UNSPECIFIED (2) CHF (congestive heart failure) Code(s): I50.9 - HEART FAILURE, UNSPECIFIED Qualifiers: Congestive heart failure type: unspecified congestive heart failure type Congestive heart failure chronicity: unspecified congestive heart failure chronicity Qualified Code(s): I50.9 - Heart failure, unspecified (3) Ascites Code(s): R18.8 - OTHER ASCITES Qualifiers: Ascites type: other type Qualified Code(s): R18.8 - Other ascites Assessment/Plan No acute events. Comfortable. Diagnostic parasenteis results are indicative of liver cirrhosis. Not immune to HBV. HCV negative. Complete liver work up to r/o other than metabolic and CHF etiologies of liver cirrhosis as outpatient Diagnostic EGD for esophageal varices and diagnostic colonoscopy for anemia in 71 yo will be arranges as outpatient once CHF is under control/stable Vaccinate against HBV 0, 1, 6 months doses Discussed with the patient
[2017-07-22] MEDS ORDERED: HEP B VIR RECOMB/HIB CONJ-MENG 0.5 ML VIAL IM ONE ×2 (13:45→15:00)
--- NOTE | 2017-07-22 15:11 | PN ---
Progress Note (short form) - Note Progress Note: Pt seen and examined. Pt is OOB to chair continues to feel better. O/E: Constitutional: Yes: Well Nourished, Mild Distress Eyes: Yes: Conjunctiva Clear HENT: Yes: Atraumatic, Normocephalic Neck: Yes: Supple Cardiovascular: Yes: Regular Rate and Rhythm Respiratory: Yes: Regular, SOB. No: Accessory Muscle Use Gastrointestinal: Yes: Normal Bowel Sounds, Abdomen, Obese, Ascites Edema: Yes Edema: improved than yesterday Neurological: Yes: Alert, Oriented Psychiatric: Yes: Alert, Oriented Last Vital Signs Temp Pulse Resp BP Pulse Ox 98.1 F 65 18 107/53 92 L 07/22/17 09:00 07/22/17 14:20 07/22/17 14:20 07/22/17 14:20 07/22/17 09:00 CBC, BMP 07/20/17 05:05 07/20/17 06:00 Current Medications Generic Name Dose Route Start Last Admin Trade Name Freq PRN Reason Stop Dose Admin Acetaminophen 650 mg 07/18/17 19:11 Tylenol - PO Q6H PRN FEVER OR PAIN Enoxaparin Sodium 40 mg 07/19/17 17:45 07/22/17 10:41 Lovenox - SQ Not Given DAILY TAMMY Furosemide 40 mg 07/20/17 09:45 07/22/17 09:24 Lasix Injection - IVPUSH 40 mg DAILY TAMMY Administration Hepatitis B Vaccine 20 mcg 07/22/17 16:00 Engerix-B - IM 07/22/17 16:01 .ONCE ONE Lidocaine 1 patch 07/19/17 10:00 07/22/17 09:24 Lidoderm Patch - TP 1 patch DAILY TAMMY Administration Metoprolol Succinate 50 mg 07/20/17 10:00 07/22/17 09:24 Toprol Xl - PO 50 mg BID TAMMY Administration Miscellaneous 1 each 07/18/17 19:15 07/21/17 21:47 Lidoderm Patch Removal MC 1 each DAILY@2200 TAMMY Administration Ondansetron HCl 4 mg 07/18/17 19:11 07/21/17 10:11 Zofran Odt - SL 4 mg Q8H PRN Administration NAUSEA AND/OR VOMITING Polyethylene Glycol 17 gm 07/21/17 11:00 07/22/17 09:25 Miralax (For Daily Use) - PO 17 grams DAILY TAMMY Administration Senna 1 tab 07/21/17 11:00 07/21/17 21:47 Senna - PO 1 tab HS TAMMY Administration Anemia Thrombocytopenia Right heart failure HCM HTN cirrhosis s/p Diagnostic paracentesis GI eval appreciated Thrombocytopenia from cirrhosis. regular transfusion thresholds. labs
[2017-07-22] MEDS: HEPATITIS B VIRUS VACCINE-PF 20 MCG/1ML PRE-FILLED SYRINGE IM ONE (17:19)
[2017-07-22] MEDS: SENNOSIDES 8.6MG TABLET (FP) PO SCH (21:23)
[2017-07-22] MEDS: LIDOCAINE PATCH REMOVAL MC SCH (21:25)
[2017-07-23 07:21] LABS: MCH 29.4 pg (25.7-33.7); MCHC 32.5 g/dl (32.0-36.0); MEAN CELL VOLUME 90.6 fl (80-96); MEAN PLT VOLUME 9.9 fl (7.5-11.1); PLATELET COUNT 85 K/MM3 (134-434); WHITE BLOOD COUNT 5.5 K/mm3 (4.0-10.0)
[2017-07-23 07:27] LABS: ALBUMIN 1.9 g/dl (3.4-5.0); ANION GAP 3 (8-16); CALCIUM 7.8 mg/dL (8.5-10.1); CO2 34 mmol/L (21-32); GLUCOSE,RANDOM 72 mg/dL (74-106)
[2017-07-23 07:30] LABS: ALK PHOS 99 U/L (45-117); BILIRUBIN,TOTAL 1.3 mg/dL (0.2-1.0); CREATININE 0.7 mg/dL (0.55-1.02); INR 1.34 (0.82-1.09); PROTHROMBIN TIME (PATIENT) 15.1 SEC (9.98-11.88); SGOT/AST 35 U/L (15-37); SGPT/ALT 19 U/L (12-78); TOT PROT 5.9 g/dl (6.4-8.2)
[2017-07-23 07:33] LABS: ACTIVATED PTT 39.5 SECONDS (26.9-34.4)
[2017-07-23] MEDS: HEPATITIS B VIRUS VACCINE-PF 20 MCG/1ML PRE-FILLED SYRINGE IM ONE (09:21)
[2017-07-23] MEDS: LIDOCAINE 5% TOPICAL PATCH TP SCH (09:29)
[2017-07-23] MEDS: ENOXAPARIN NA (PORCINE) 40 MG/0.4 ML DISP.SYRIN SQ SCH (09:29)
[2017-07-23] MEDS: FUROSEMIDE 40 MG/4 ML INJECTABLE VIAL IVPUSH SCH (09:29)
[2017-07-23] MEDS: POLYETHYLENE GLYCOL 3350 119 GM BTL PO SCH (09:30)
[2017-07-23] MEDS: METOPROLOL SUCCINATE 50 MG TAB.SR.24H (FP) PO SCH ×2 (09:30→21:37)
--- NOTE | 2017-07-23 11:01 | PN ---
Progress Note, Physician History of Present Illness: PULMONARY ALERT,OOB-CHAIR,-LESS DYSPNEIC. - Current Medication List Current Medications: Active Medications Acetaminophen (Tylenol -) 650 mg PO Q6H PRN PRN Reason: FEVER OR PAIN Enoxaparin Sodium (Lovenox -) 40 mg SQ DAILY [facility] Last Admin: 07/23/17 09:29 Dose: 40 mg Furosemide (Lasix Injection -) 40 mg IVPUSH DAILY [facility] Last Admin: 07/23/17 09:29 Dose: 40 mg Lidocaine (Lidoderm Patch -) 1 patch TP DAILY [facility] Last Admin: 07/23/17 09:29 Dose: 1 patch Metoprolol Succinate (Toprol Xl -) 50 mg PO BID [facility] Last Admin: 07/23/17 09:30 Dose: 50 mg Miscellaneous (Lidoderm Patch Removal) 1 each MC DAILY@2200 [facility] Last Admin: 07/22/17 21:25 Dose: 1 each Ondansetron HCl (Zofran Odt -) 4 mg SL Q8H PRN PRN Reason: NAUSEA AND/OR VOMITING Last Admin: 07/21/17 10:11 Dose: 4 mg Polyethylene Glycol (Miralax (For Daily Use) -) 17 gm PO DAILY [facility] Last Admin: 07/23/17 09:30 Dose: 17 grams Senna (Senna -) 1 tab PO HS [facility] Last Admin: 07/22/17 21:23 Dose: Not Given - Objective Vital Signs: Vital Signs Temperature 97.5 F L 07/23/17 10:00 Pulse Rate 64 07/23/17 10:00 Respiratory Rate 20 07/23/17 10:00 Blood Pressure 104/68 07/23/17 10:00 O2 Sat by Pulse Oximetry (%) 93 L 07/23/17 09:00 Constitutional: Yes: Well Nourished, Calm Eyes: Yes: WNL HENT: Yes: WNL Neck: Yes: WNL Cardiovascular: Yes: Regular Rate and Rhythm, S1, S2 Respiratory: Yes: CTA Bilaterally Gastrointestinal: Yes: Normal Bowel Sounds, Soft Extremities: Yes: WNL Edema: Yes Labs: CBC, BMP 07/23/17 05:05 07/23/17 05:05 INR, PTT INR 1.34 (0.82-1.09) H 07/23/17 05:05 Problem List - Problems (1) Thrombocytopenia Code(s): D69.6 - THROMBOCYTOPENIA, UNSPECIFIED (2) CHF (congestive heart failure) Code(s): I50.9 - HEART FAILURE, UNSPECIFIED Qualifiers: Congestive heart failure type: unspecified congestive heart failure type Congestive heart failure chronicity: unspecified congestive heart failure chronicity Qualified Code(s): I50.9 - Heart failure, unspecified (3) Edema Code(s): R60.9 - EDEMA, UNSPECIFIED Qualifiers: Edema type: unspecified Qualified Code(s): R60.9 - Edema, unspecified (4) SOB (shortness of breath) Code(s): R06.02 - SHORTNESS OF BREATH (5) Cor pulmonale Code(s): I27.81 - COR PULMONALE (CHRONIC) Assessment/Plan ASSESSMENT AND PLAN: Hypertrophic Cardiomyopathy HTN Elevated LFTs Thromboctyopenia - cautious use of diuretics - beta dana - monitor lytes,plt ct - DVT prophylaxis - lasix - daily wts DR DOLAN Problem List - Problems (1) Thrombocytopenia Code(s): D69.6 - THROMBOCYTOPENIA, UNSPECIFIED (2) CHF (congestive heart failure) Code(s): I50.9 - HEART FAILURE, UNSPECIFIED Qualifiers: Congestive heart failure type: unspecified congestive heart failure type Congestive heart failure chronicity: unspecified congestive heart failure chronicity Qualified Code(s): I50.9 - Heart failure, unspecified (3) Edema Code(s): R60.9 - EDEMA, UNSPECIFIED Qualifiers: Edema type: unspecified Qualified Code(s): R60.9 - Edema, unspecified (4) SOB (shortness of breath) Code(s): R06.02 - SHORTNESS OF BREATH (5) Cor pulmonale Code(s): I27.81 - COR PULMONALE (CHRONIC)
--- NOTE | 2017-07-23 11:12 | PN ---
Progress Note (short form) - Note Progress Note: cc: le edema, sob S: No cp, palps, dizzy, loc, pnd. sob/le edema a little better Current Medications Generic Name Dose Route Start Last Admin Trade Name Freq PRN Reason Stop Dose Admin Acetaminophen 650 mg 07/18/17 19:11 Tylenol - PO Q6H PRN FEVER OR PAIN Enoxaparin Sodium 40 mg 07/19/17 17:45 07/23/17 09:29 Lovenox - SQ 40 mg DAILY TAMMY Administration Furosemide 40 mg 07/20/17 09:45 07/23/17 09:29 Lasix Injection - IVPUSH 40 mg DAILY TAMMY Administration Furosemide 40 mg 07/23/17 16:00 Lasix Injection - IVPUSH 07/23/17 16:01 ONCE ONE Lidocaine 1 patch 07/19/17 10:00 07/23/17 09:29 Lidoderm Patch - TP 1 patch DAILY [facility] Administration Metoprolol Succinate 50 mg 07/20/17 10:00 07/23/17 09:30 Toprol Xl - PO 50 mg BID TAMMY Administration Miscellaneous 1 each 07/18/17 19:15 07/22/17 21:25 Lidoderm Patch Removal MC 1 each DAILY@2200 T[facility]MY Administration Ondansetron HCl 4 mg 07/18/17 19:11 07/21/17 10:11 Zofran Odt - SL 4 mg Q8H PRN Administration NAUSEA AND/OR VOMITING Polyethylene Glycol 17 gm 07/21/17 11:00 07/23/17 09:30 Miralax (For Daily Use) - PO 17 grams DAILY TAMMY Administration Senna 1 tab 07/21/17 11:00 07/22/17 21:23 Senna - PO Not Given HS TAMMY pe: Vital Signs Period Temp Pulse Resp BP Sys/Patel Pulse Ox Last 24 Hr 97.5 F-98.7 F 62-70 18-20 100-119/53-71 93-100 nad no jvd rrr s1s2 nomrg cta bl nl eff aaox3 1 le edema bl, no c/c pos dp pt no carotid bruits no jaundice diaphoresis abd nt nd pos bs CBC, BMP 07/23/17 05:05 07/23/17 05:05 ecg 07/18/17: sr, nl intervals, no ischemic changes cxr: clear lungs echo 04/2017: tds; lvef>70%, mild josie, lvot obstruction, nl rv, mac, mikala, findings c/w hcm echo 06/2017: nl lv/rv, mod olaf, mod mr, mild tr, nl rvsp a/p: 71 f hx HCM, venous insuff/le edema, here with sob, le edema. acute on chronic right sided chf/hcm, sob, venous insuff/le edema: -pt with chronic le edema and sob. She was supposed to be on torsemide 100 qd at home but she self d/c'ed months a go because she felt it was making her confused. No signs pulm congestion here, mostly RHF. No signs acs. started trial of lasix 40 iv bid. Monitor daily cr, lytes, wt. -07/19: now s/p 3 doses of lasix 40 mg IV (BID yesterday and a dose this am). sbp drop to 80's this am. will hold IV bid lasix --> transition to daily dosing. -07/20-: wt decreasing, cr stable, cont lasix 40 iv qd. holding ARB -07/23: wt decreasing but slowly, bp and cr stable, will give lasix 40 iv bid today instead of qd HCM: -seen on recent echo as outpt. cont bb. pancytopenia. - denies hx. mgm't per pmd. cirrhosis: -gi following, rec'd outpt w/u
--- NOTE | 2017-07-23 13:42 | PN ---
Progress Note, Physician History of Present Illness: No acute events. Comfortable. Asked me to speak with her son Oscar soria liver and HBV vaccine series - Current Medication List Current Medications: Active Medications Acetaminophen (Tylenol -) 650 mg PO Q6H PRN PRN Reason: FEVER OR PAIN Enoxaparin Sodium (Lovenox -) 40 mg SQ DAILY [facility] Last Admin: 07/23/17 09:29 Dose: 40 mg Furosemide (Lasix Injection -) 40 mg IVPUSH DAILY [facility] Last Admin: 07/23/17 09:29 Dose: 40 mg Furosemide (Lasix Injection -) 40 mg IVPUSH ONCE ONE Stop: 07/23/17 16:01 Lidocaine (Lidoderm Patch -) 1 patch TP DAILY [facility] Last Admin: 07/23/17 09:29 Dose: 1 patch Metoprolol Succinate (Toprol Xl -) 50 mg PO BID [facility] Last Admin: 07/23/17 09:30 Dose: 50 mg Miscellaneous (Lidoderm Patch Removal) 1 each MC DAILY@2200 [facility] Last Admin: 07/22/17 21:25 Dose: 1 each Ondansetron HCl (Zofran Odt -) 4 mg SL Q8H PRN PRN Reason: NAUSEA AND/OR VOMITING Last Admin: 07/21/17 10:11 Dose: 4 mg Polyethylene Glycol (Miralax (For Daily Use) -) 17 gm PO DAILY [facility] Last Admin: 07/23/17 09:30 Dose: 17 grams Senna (Senna -) 1 tab PO HS [facility] Last Admin: 07/22/17 21:23 Dose: Not Given - Objective Vital Signs: Vital Signs Temperature 97.5 F L 07/23/17 10:00 Pulse Rate 64 07/23/17 10:00 Respiratory Rate 20 07/23/17 10:00 Blood Pressure 104/68 07/23/17 10:00 O2 Sat by Pulse Oximetry (%) 93 L 07/23/17 09:00 Constitutional: Yes: No Distress, Calm Eyes: Yes: Conjunctiva Clear HENT: Yes: Atraumatic Neck: Yes: Supple Respiratory: Yes: Regular Gastrointestinal: Yes: Soft. No: Tenderness Labs: CBC, BMP 07/23/17 05:05 07/23/17 05:05 INR, PTT INR 1.34 (0.82-1.09) H 07/23/17 05:05 Laboratory Results - last 24 hr 07/21/17 07/23/17 07/23/17 05:05 05:05 05:05 WBC 5.5 RBC 3.25 L Hgb 9.6 L Hct 29.4 L MCV 90.6 MCH 29.4 MCHC 32.5 RDW 15.0 Plt Count 85 L MPV 9.9 PT with INR INR PTT (Actin FS) Sodium 139 Potassium 4.2 Chloride 102 Carbon Dioxide 34 H Anion Gap 3 L BUN 9 Creatinine 0.7 Creat Clearance w eGFR > 60 Random Glucose 72 L D Calcium 7.8 L Total Bilirubin 1.3 H AST 35 D ALT 19 Alkaline Phosphatase 99 Total Protein 5.9 L Albumin 1.9 L LIZETH Screen Negative 07/23/17 05:05 WBC RBC Hgb Hct MCV MCH MCHC RDW Plt Count MPV PT with INR 15.10 H INR 1.34 H PTT (Actin FS) 39.5 H Sodium Potassium Chloride Carbon Dioxide Anion Gap BUN Creatinine Creat Clearance w eGFR Random Glucose Calcium Total Bilirubin AST ALT Alkaline Phosphatase Total Protein Albumin LIZETH Screen Problem List - Problems (1) Chronic liver disease and cirrhosis Code(s): K74.60 - UNSPECIFIED CIRRHOSIS OF LIVER; K76.9 - LIVER DISEASE, UNSPECIFIED (2) CHF (congestive heart failure) Code(s): I50.9 - HEART FAILURE, UNSPECIFIED Qualifiers: Congestive heart failure type: unspecified congestive heart failure type Congestive heart failure chronicity: unspecified congestive heart failure chronicity Qualified Code(s): I50.9 - Heart failure, unspecified (3) Ascites Code(s): R18.8 - OTHER ASCITES Qualifiers: Ascites type: other type Qualified Code(s): R18.8 - Other ascites Assessment/Plan No acute events. Comfortable. Diagnostic parasenteis results are indicative of liver cirrhosis. Complete liver work up to r/o other than metabolic and CHF etiologies of liver cirrhosis as outpatient Diagnostic EGD for esophageal varices and diagnostic colonoscopy for anemia in 71 yo will be arranges as outpatient once CHF is under control/stable Vaccinate against HBV 0, 1, 6 months doses Discussed with the patient Discussed with pt's son Oscar @ [phone]. Pt now agrees to HBV #1
[2017-07-23] MEDS ORDERED: HEPATITIS B VIRUS VACCINE-PF 20 MCG/1ML PRE-FILLED SYRINGE IM ONE (14:33)
--- NOTE | 2017-07-23 14:35 | PN ---
Progress Note, Physician Chief Complaint: AWAKE ALERT FEELING TIRED WEAK POOR APPETITE - Current Medication List Current Medications: Active Medications Acetaminophen (Tylenol -) 650 mg PO Q6H PRN PRN Reason: FEVER OR PAIN Enoxaparin Sodium (Lovenox -) 40 mg SQ DAILY [facility] Last Admin: 07/23/17 09:29 Dose: 40 mg Furosemide (Lasix Injection -) 40 mg IVPUSH DAILY [facility] Last Admin: 07/23/17 09:29 Dose: 40 mg Furosemide (Lasix Injection -) 40 mg IVPUSH ONCE ONE Stop: 07/23/17 16:01 Hepatitis B Vaccine (Engerix-B -) 20 mcg IM .ONCE ONE Stop: 07/23/17 14:34 Lidocaine (Lidoderm Patch -) 1 patch TP DAILY [facility] Last Admin: 07/23/17 09:29 Dose: 1 patch Metoprolol Succinate (Toprol Xl -) 50 mg PO BID [facility] Last Admin: 07/23/17 09:30 Dose: 50 mg Miscellaneous (Lidoderm Patch Removal) 1 each MC DAILY@2200 [facility] Last Admin: 07/22/17 21:25 Dose: 1 each Ondansetron HCl (Zofran Odt -) 4 mg SL Q8H PRN PRN Reason: NAUSEA AND/OR VOMITING Last Admin: 07/21/17 10:11 Dose: 4 mg Polyethylene Glycol (Miralax (For Daily Use) -) 17 gm PO DAILY [facility] Last Admin: 07/23/17 09:30 Dose: 17 grams Senna (Senna -) 1 tab PO HS [facility] Last Admin: 07/22/17 21:23 Dose: Not Given - Objective Vital Signs: Vital Signs Temperature 97.5 F L 07/23/17 10:00 Pulse Rate 64 07/23/17 10:00 Respiratory Rate 20 07/23/17 10:00 Blood Pressure 104/68 07/23/17 10:00 O2 Sat by Pulse Oximetry (%) 93 L 07/23/17 09:00 Constitutional: Yes: Mild Distress Eyes: Yes: WNL HENT: Yes: WNL Neck: Yes: WNL Cardiovascular: Yes: WNL Respiratory: Yes: On Nasal O2, Poor Air Entry Gastrointestinal: Yes: WNL Genitourinary: Yes: WNL Musculoskeletal: Yes: WNL Extremities: Yes: WNL Edema: Yes Edema: LLE: 1+, RLE: 1+ Peripheral Pulses WNL: Yes Integumentary: Yes: WNL Wound/Incision: Yes: Clean/Dry Neurological: Yes: WNL ...Motor Strength: LLE, RLE Psychiatric: Yes: WNL Labs: CBC, BMP 07/23/17 05:05 07/23/17 05:05 INR, PTT INR 1.34 (0.82-1.09) H 07/23/17 05:05 Problem List - Problems (1) CHF (congestive heart failure) Code(s): I50.9 - HEART FAILURE, UNSPECIFIED Qualifiers: Congestive heart failure type: unspecified congestive heart failure type Congestive heart failure chronicity: unspecified congestive heart failure chronicity Qualified Code(s): I50.9 - Heart failure, unspecified (2) Edema Code(s): R60.9 - EDEMA, UNSPECIFIED Qualifiers: Edema type: unspecified Qualified Code(s): R60.9 - Edema, unspecified (3) SOB (shortness of breath) Code(s): R06.02 - SHORTNESS OF BREATH Assessment/Plan LASIX HELD DO TO LOW BP DISCUSS WITH CARDIOLOGY OOB TO CHAIR PT EVAL CARDIOLOGY AND PULM F/U DVT PROPHYLAXIS GI WORKUP APPRECIATED NEGATIVE FOR ACUTE HEPATITIS CAN HAVE VACCINE HEP B OUTPATIENT
[2017-07-23] MEDS ORDERED: FUROSEMIDE 40 MG/4 ML INJECTABLE VIAL IVPUSH ONE (16:00)
[2017-07-23] MEDS ORDERED: MAGNESIUM HYDROX 2400MG/30ML ORAL SUSPENSION 30 ML CUP PO ONE (16:15)
[2017-07-23] MEDS: LIDOCAINE PATCH REMOVAL MC SCH (21:37)
[2017-07-23] MEDS: SENNOSIDES 8.6MG TABLET (FP) PO SCH (21:37)
[2017-07-23] MEDS: DOCUSATE SODIUM 100 MG CAPSULE (FP) PO SCH (21:37)
--- NOTE | 2017-07-24 10:20 | RAPID ---
Physical Examination Vital Signs: Vital Signs Temperature 98 F 07/24/17 06:00 Pulse Rate 62 07/24/17 06:00 Respiratory Rate 19 07/24/17 06:00 Blood Pressure 109/45 07/24/17 06:00 O2 Sat by Pulse Oximetry (%) 94 L 07/23/17 21:00 Findings/Remarks: Radha white was called at 9:55am on patient. Upon MD arrival nurse was onsite and exclaimed that patient was found not to be acting like herself. Her speech was stated to be slowed, she was withdrawn and she was refusing medications and care. Nurse states that since last night patient seemed to be altered, pulled out her IV line and was refusing much of her care. Upon exam patient was alert and oriented, but she was slow to respond to questions. The patient is new to me and baseline is unknown to me other than what is reported. Patient was able to state where she is, who she is, and why she is in the hospital. On exam, CN II-XII were intact, patient had intact sensation on b/l face, arms, and legs. Patient's motor strength was 5/5 in b/l upper and lower extremities and no pronator drift was noted. Patient was not dysmetric. Patient's speech was not slurred. Patient was seemingly refusing to speak to the doctors without her son present, and she was insistent to call her son. Neurological: Yes: Alert, Confusion, Cran Nerves II-XII Intact. No: Aphasia, Asterixis, Facial Droop, Lethargy, Loss of Sensation, Numbness, Paresthesia, Tingling, Tremors, Weakness ...Motor Strength: WNL Labs: CBC, BMP 07/23/17 05:05 07/23/17 05:05 Rapid Response - Rapid Response Assessment: Cannot rule out acute CVA at this time. Will need to order CT head without contrast and labs. Primary Physician Notified: Kim Pate Time PMD Notified: 10:00 Plan: CBC, CMP, Mg, Phos, TSH, CT head without contrast ordered, neuro will be informed, Dr. Pate notified by nurse Suspected CVA - Suspected CVA Exam Time (Code [place] Time): 10:00 CT Stroke ordered: Yes Stat "Code [place]" Consult to Neurology called: Yes Last Known Well (Date): 07/23/17 Last Known Well (Time): 19:30 Symptom Discovery (Date): 07/24/17 Symptom Discovery (Time): 09:58
--- NOTE | 2017-07-24 11:10 | PN ---
Progress Note (short form) - Note Progress Note: cc: le edema, sob S: No cp, palps, dizzy, loc, pnd. sob/le edema a little better; this AM with AMS, incontinence, now improving Current Medications Generic Name Dose Route Start Last Admin Trade Name Angelique PRN Reason Stop Dose Admin Acetaminophen 650 mg 07/18/17 19:11 Tylenol - PO Q6H PRN FEVER OR PAIN Docusate Sodium 300 mg 07/23/17 22:00 07/23/17 21:37 Colace - PO 300 mg HS TAMMY Administration Enoxaparin Sodium 40 mg 07/19/17 17:45 07/23/17 09:29 Lovenox - SQ 40 mg DAILY TAMMY Administration Furosemide 40 mg 07/24/17 14:00 Lasix Injection - IVPUSH BID@0600,1400 TAMMY Lidocaine 1 patch 07/19/17 10:00 07/23/17 09:29 Lidoderm Patch - TP 1 patch DAILY TAMMY Administration Metoprolol Succinate 50 mg 07/20/17 10:00 07/23/17 21:37 Toprol Xl - PO 50 mg BID TAMMY Administration Miscellaneous 1 each 07/18/17 19:15 07/23/17 21:37 Lidoderm Patch Removal MC 1 each DAILY@2200 TAMMY Administration Ondansetron HCl 4 mg 07/18/17 19:11 07/21/17 10:11 Zofran Odt - SL 4 mg Q8H PRN Administration NAUSEA AND/OR VOMITING Polyethylene Glycol 17 gm 07/21/17 11:00 07/23/17 09:30 Miralax (For Daily Use) - PO 17 grams DAILY TAMMY Administration Senna 1 tab 07/21/17 11:00 07/23/17 21:37 Senna - PO 1 tab HS TAMMY Administration pe: Vital Signs Period Temp Pulse Resp BP Sys/Patel Pulse Ox Last 24 Hr 97.8 F-98.6 F 60-71 19-20 96-142/45-75 94 nad no jvd rrr s1s2 nomrg cta bl nl eff aaox3 1 le edema bl, no c/c no jaundice diaphoresis abd nt nd pos bs Laboratory Last Values WBC 5.5 K/mm3 (4.0-10.0) 07/23/17 05:05 RBC 3.25 M/mm3 (3.60-5.2) L 07/23/17 05:05 Hgb 9.6 GM/dL (10.7-15.3) L 07/23/17 05:05 Hct 29.4 % (32.4-45.2) L 07/23/17 05:05 MCV 90.6 fl (80-96) 07/23/17 05:05 MCH 29.4 pg (25.7-33.7) 07/23/17 05:05 MCHC 32.5 g/dl (32.0-36.0) 07/23/17 05:05 RDW 15.0 % (11.6-15.6) 07/23/17 05:05 Plt Count 85 K/MM3 (134-434) L 07/23/17 05:05 MPV 9.9 fl (7.5-11.1) 07/23/17 05:05 Total Counted 100 07/20/17 05:05 Neutrophils % 58.3 % (42.8-82.8) 07/20/17 05:05 Neutrophils % (Manual) 60.0 % (42.8-82.8) 07/20/17 05:05 Lymphocytes % 25.3 % (8-40) D 07/20/17 05:05 Lymphocytes % (Manual) 23.0 % (8-40) 07/20/17 05:05 Monocytes % 11.4 % (3.8-10.2) H 07/20/17 05:05 Monocytes % (Manual) 9 % (3.8-10.2) 07/20/17 05:05 Eosinophils % 4.2 % (0-4.5) 07/20/17 05:05 Eosinophils % (Manual) 8.0 % (0-4.5) H 07/20/17 05:05 Basophils % 0.8 % (0-2.0) 07/20/17 05:05 Retic Count 2.61 % (0.5-1.5) H 07/20/17 05:05 Haptoglobin 86 mg/dL (34-200) 07/20/17 05:05 PT with INR 15.10 SEC (9.98-11.88) H 07/23/17 05:05 INR 1.34 (0.82-1.09) H 07/23/17 05:05 PTT (Actin FS) 39.5 SECONDS (26.9-34.4) H 07/23/17 05:05 Sodium 139 mmol/L (136-145) 07/23/17 05:05 Potassium 4.2 mmol/L (3.5-5.1) 07/23/17 05:05 Chloride 102 mmol/L (98-107) 07/23/17 05:05 Carbon Dioxide 34 mmol/L (21-32) H 07/23/17 05:05 Anion Gap 3 (8-16) L 07/23/17 05:05 BUN 9 mg/dL (7-18) 07/23/17 05:05 Creatinine 0.7 mg/dL (0.55-1.02) 07/23/17 05:05 Creat Clearance w eGFR > 60 (>60) 07/23/17 05:05 POC Glucometer 82 UNITS (80-120) 07/24/17 10:00 Random Glucose 72 mg/dL (74-106) L D 07/23/17 05:05 Hemoglobin A1c % 4.2 % (4.8-6.0) L 07/19/17 06:30 Calcium 7.8 mg/dL (8.5-10.1) L 07/23/17 05:05 Iron 73 ug/dL (27-139) 07/20/17 05:05 TIBC 170 ug/dL (250-450) L 07/20/17 05:05 Iron Saturation 43 % (15-55) 07/20/17 05:05 Ferritin 127.984 ng/ml (6.9-282.5) 07/20/17 05:05 Total Bilirubin 1.3 mg/dL (0.2-1.0) H 07/23/17 05:05 AST 35 U/L (15-37) D 07/23/17 05:05 ALT 19 U/L (12-78) 07/23/17 05:05 Alkaline Phosphatase 99 U/L (45-117) 07/23/17 05:05 LD Total 203 U/L (84-246) 07/20/17 05:05 Creatine Kinase 106 IU/L (26-192) 07/18/17 13:11 Troponin I 0.03 ng/ml (0.00-0.05) 07/18/17 13:11 B-Natriuretic Peptide 583.44 pg/ml (5-125) H 07/18/17 13:11 Total Protein 5.9 g/dl (6.4-8.2) L 07/23/17 05:05 Albumin 1.9 g/dl (3.4-5.0) L 07/23/17 05:05 Triglycerides 51 mg/dL (35-160) 07/19/17 06:30 Cholesterol 100 mg/dL (50-200) 07/19/17 06:30 Total LDL Cholesterol 57 mg/dL (5-100) 07/19/17 06:30 HDL Cholesterol 32 mg/dL (40-60) L 07/19/17 06:30 Tumor Marker AFP 1.4 ng/ml (0.0-8.3) 07/21/17 05:05 Vitamin B12 388 pg/ml (180-914) 07/20/17 05:05 Folate 1263 ng/mL (>498) 07/20/17 05:05 Folate Hemolysate 372.6 ng/mL (Not Estab.) 07/20/17 05:05 Urine Color Suly 07/18/17 15:35 Urine Appearance Slcloudy 07/18/17 15:35 Urine pH 5.0 (5.0-8.0) 07/18/17 15:35 Ur Specific [place] 1.030 (1.001-1.035) 07/18/17 15:35 Urine Protein 1+ (NEGATIVE) H 07/18/17 15:35 Urine Glucose (UA) Negative (NEGATIVE) 07/18/17 15:35 Urine Ketones Negative (NEGATIVE) 07/18/17 15:35 Urine Blood Negative (NEGATIVE) 07/18/17 15:35 Urine Nitrite Negative (NEGATIVE) 07/18/17 15:35 Urine Bilirubin Negative (NEGATIVE) 07/18/17 15:35 Urine Urobilinogen 4.0 e.u/dl mg/dL (0.2-1.0) H 07/18/17 15:35 Ur Leukocyte Esterase Negative (NEGATIVE) 07/18/17 15:35 Urine WBC (Auto) 10 /hpf (3-5) 07/18/17 15:35 Urine RBC (Auto) 12 /hpf (0-3) 07/18/17 15:35 Ur Epithelial Cells Few /HPF (FEW) 07/18/17 15:35 Hyaline Casts 1 /lpf 07/18/17 15:35 Urine Mucus Few 07/18/17 15:35 Peritoneal WBC 500 /mm3 07/21/17 15:00 Peritoneal RBC 1667 /mm3 07/21/17 15:00 Periton Neutrophils 0 % 07/21/17 15:00 Periton Lymphocytes 35 % 07/21/17 15:00 Peritoneal Monocytes 2 % 07/21/17 15:00 Periton Mesothelial 5 % 07/21/17 15:00 Periton Macrophages 58 % 07/21/17 15:00 Peritoneal Tot Protein 2 gm/dL 07/21/17 15:00 Peritoneal Albumin 1 g/dL 07/21/17 15:00 Peritoneal LDH 78 IU/L 07/21/17 15:00 Peritoneal Glucose 114 mg/dL 07/21/17 15:00 Peritoneal Amylase 50 U/L 07/21/17 15:00 Peritoneal Triglycerid 23 mg/dL 07/21/17 15:00 LIZETH Screen Negative (.) 07/21/17 05:05 Hepatitis A IgM Ab Negative (Negative) 07/19/17 17:00 Hep A IgM Ab Confirm Negative (Negative) 07/21/17 05:05 Hepatitis A Ab Total Positive (Negative) H 07/21/17 05:05 Hep Bs Antigen Negative (Negative) 07/19/17 17:00 Hep Bs Antibody Non reactive (.) 07/21/17 05:05 Hep B Core IgM Ab Negative (Negative) 07/19/17 17:00 Hepatitis C Ab (EIA) 0.1 s/co ratio (0.0-0.9) 07/19/17 17:00 ecg 07/18/17: sr, nl intervals, no ischemic changes cxr: clear lungs echo 04/2017: tds; lvef>70%, mild josie, lvot obstruction, nl rv, mac, mikala, findings c/w hcm echo 06/2017: nl lv/rv, mod olaf, mod mr, mild tr, nl rvsp a/p: 71 f hx HCM, venous insuff/le edema, here with sob, le edema. acute on chronic right sided chf/hcm, sob, venous insuff/le edema: -pt with chronic le edema and sob. She was supposed to be on torsemide 100 qd at home but she self d/c'ed months a go because she felt it was making her confused. No signs pulm congestion here, mostly RHF. No signs acs. started trial of lasix 40 iv bid. Monitor daily cr, lytes, wt. -07/19: now s/p 3 doses of lasix 40 mg IV (BID yesterday and a dose this am). sbp drop to 80's this am. will hold IV bid lasix --> transition to daily dosing. -07/20-: wt decreasing, cr stable, cont lasix 40 iv qd. holding ARB -07/23: wt decreasing but slowly, bp and cr stable, will give lasix 40 iv bid today instead of qd -07/24: cont lasix 40 iv bid HCM: -seen on recent echo as outpt. cont bb. pancytopenia. - denies hx. mgm't per pmd. cirrhosis: -gi following, rec'd outpt w/u ams: -head ct w/o acute findings
[2017-07-24 11:19] LABS: BASOPHIL 0.9 % (0-2.0); MCH 29.1 pg (25.7-33.7); MCHC 32.2 g/dl (32.0-36.0); MEAN CELL VOLUME 90.5 fl (80-96); MEAN PLT VOLUME 9.7 fl (7.5-11.1); NEUTROPHILS 60.6 % (42.8-82.8); PLATELET COUNT 100 K/MM3 (134-434); RDW 14.9 % (11.6-15.6); WHITE BLOOD COUNT 7.4 K/mm3 (4.0-10.0)
[2017-07-24] MEDS: METOPROLOL SUCCINATE 50 MG TAB.SR.24H (FP) PO SCH ×2 (11:19→22:00)
[2017-07-24] MEDS: LIDOCAINE 5% TOPICAL PATCH TP SCH (11:20)
[2017-07-24] MEDS: ENOXAPARIN NA (PORCINE) 40 MG/0.4 ML DISP.SYRIN SQ SCH (11:20)
[2017-07-24] MEDS: POLYETHYLENE GLYCOL 3350 119 GM BTL PO SCH (11:20)
[2017-07-24 11:38] LABS: ALBUMIN 2.5 g/dl (3.4-5.0); ANION GAP 6 (8-16); BILIRUBIN,TOTAL 1.5 mg/dL (0.2-1.0); CALCIUM 8.5 mg/dL (8.5-10.1); CO2 30 mmol/L (21-32); CREATININE 0.7 mg/dL (0.55-1.02); GLUCOSE,RANDOM 89 mg/dL (74-106); MAGNESIUM 2.1 mg/dL (1.8-2.4); PHOSPHOROUS 2.8 mg/dL (2.5-4.9); SGOT/AST 47 U/L (15-37); SGPT/ALT 24 U/L (12-78); TOT PROT 7.5 g/dl (6.4-8.2)
[2017-07-24 11:46] LABS: ALK PHOS 124 U/L (45-117); THYROID STIMULATING HORMONE 3.66 uIU/ml (0.358-3.74)
[2017-07-24] MEDS ORDERED: LACTULOSE 20 GM/30 ML UDC (FOR ORAL USE ONLY) PO PRN (13:09)
--- NOTE | 2017-07-24 13:12 | PN ---
Progress Note, Physician Chief Complaint: EVENTS REVIEWED CODE WOODY CALLED FOR ALTERED MENTAL STATUS CT BRAIN NO ACUTE CHANGES - Current Medication List Current Medications: Active Medications Acetaminophen (Tylenol -) 650 mg PO Q6H PRN PRN Reason: FEVER OR PAIN Docusate Sodium (Colace -) 300 mg PO HS [facility] Last Admin: 07/23/17 21:37 Dose: 300 mg Enoxaparin Sodium (Lovenox -) 40 mg SQ DAILY [facility] Last Admin: 07/24/17 11:20 Dose: 40 mg Furosemide (Lasix Injection -) 40 mg IVPUSH BID@0600,1400 [facility] Lactulose (Cephulac (Oral Use)) 20 gm PO TID PRN PRN Reason: CONSTIPATION Lidocaine (Lidoderm Patch -) 1 patch TP DAILY [facility] Last Admin: 07/24/17 11:20 Dose: 1 patch Metoprolol Succinate (Toprol Xl -) 50 mg PO BID [facility] Last Admin: 07/24/17 11:19 Dose: Not Given Miscellaneous (Lidoderm Patch Removal) 1 each MC DAILY@2200 [facility] Last Admin: 07/23/17 21:37 Dose: 1 each Ondansetron HCl (Zofran Odt -) 4 mg SL Q8H PRN PRN Reason: NAUSEA AND/OR VOMITING Last Admin: 07/21/17 10:11 Dose: 4 mg Polyethylene Glycol (Miralax (For Daily Use) -) 17 gm PO DAILY [facility] Last Admin: 07/24/17 11:20 Dose: Not Given Rifaximin (Xifaxan -) 550 mg PO BID [facility] Senna (Senna -) 1 tab PO [facility] Last Admin: 07/23/17 21:37 Dose: 1 tab - Objective Vital Signs: Vital Signs Temperature 98 F 07/24/17 06:00 Pulse Rate 62 07/24/17 06:00 Respiratory Rate 19 07/24/17 06:00 Blood Pressure 109/45 07/24/17 06:00 O2 Sat by Pulse Oximetry (%) 95 07/24/17 09:00 Constitutional: Yes: Mild Distress Eyes: Yes: WNL HENT: Yes: WNL Neck: Yes: WNL Cardiovascular: Yes: WNL Respiratory: Yes: WNL Gastrointestinal: Yes: WNL Genitourinary: Yes: WNL Musculoskeletal: Yes: WNL Extremities: Yes: WNL Edema: Yes Edema: LLE: 1+, RLE: 1+ Peripheral Pulses WNL: Yes Integumentary: Yes: WNL Wound/Incision: Yes: Clean/Dry Neurological: Yes: WNL ...Motor Strength: WNL Psychiatric: Yes: WNL Labs: CBC, BMP 07/24/17 10:55 07/24/17 10:55 INR, PTT INR 1.34 (0.82-1.09) H 07/23/17 05:05 Problem List - Problems (1) CHF (congestive heart failure) Code(s): I50.9 - HEART FAILURE, UNSPECIFIED Qualifiers: Congestive heart failure type: unspecified congestive heart failure type Congestive heart failure chronicity: unspecified congestive heart failure chronicity Qualified Code(s): I50.9 - Heart failure, unspecified (2) Edema Code(s): R60.9 - EDEMA, UNSPECIFIED Qualifiers: Edema type: unspecified Qualified Code(s): R60.9 - Edema, unspecified (3) SOB (shortness of breath) Code(s): R06.02 - SHORTNESS OF BREATH (4) Toxic metabolic encephalopathy Code(s): G92 - TOXIC ENCEPHALOPATHY (5) Chronic liver disease and cirrhosis Code(s): K74.60 - UNSPECIFIED CIRRHOSIS OF LIVER; K76.9 - LIVER DISEASE, UNSPECIFIED Assessment/Plan CT BRAIN NORMAL AMMONIA LEVEL ELEVATED XIFAXIN AND LACTULOSE STARTED GI F/U CHF STABLE DC PLANNING WITH HOME HEALTH AID
[2017-07-24 13:19] LABS: URINE APPEARANCE CLEAR; URINE BILIRUBIN NEGATIVE (NEGATIVE); URINE BLOOD NEGATIVE (NEGATIVE); URINE COLOR LTYELLOW; URINE GLUCOSE (UA) NEGATIVE (NEGATIVE); URINE KETONE NEGATIVE (NEGATIVE); URINE NITRITE NEGATIVE (NEGATIVE); URINE PROTEIN NEGATIVE (NEGATIVE); URINE UROBILINOGEN NEGATIVE mg/dL (0.2-1.0)
[2017-07-24] MEDS: FUROSEMIDE 40 MG/4 ML INJECTABLE VIAL IVPUSH SCH (13:58)
[2017-07-24] MEDS: RIFAXIMIN 550 MG TABLET (UD) PO SCH ×2 (13:58→22:02)
--- NOTE | 2017-07-24 15:02 | CONSULT ---
Consult - text type - Consultation Consultation Note: NEUROLOGY CONSULTATION is greatly appreciated: Events reviewed and discussed with RN and Dr. Pate. Patient examined with son, Gus at bedside. This 71 yo RH woman with h/o HTN, CHF, thrombocytopenia on torsamide and metoprolol with admissted with increasing SOB and peripheral edema. W/U revealed ascities and hepatic insufficiency with Hep A Ab +. S/P paracentesis. This AM pt had new onset of confusion. Rare episode in past as per her son. CT of Head (reviewed): No acute changes. Ammonia level = 101. Exam: Neck supple. Afebrile. No bruits. Cor reg. NEURO: Awake, alert, slow to respond. O x [facility]. Nov. No year. Recalls 1 of 3 @ 3. No frontal release signs. CN Sig for DENSE LEFT HOMONOMOUS HEMIANOPSIA (denied by patient)...CN otherwise normal Motor: No drift. + Asterixis. Brisk reflexes except normal AJ's. Toes downgoing. Coord: No FTN dystaxia Sensory: Normal vib on feet. Gait: Deferred. IMP: 1. Toxic-Metabolic (hyperammonemic) encephalopathy 2. Acute Right occipitoparietal CVA. NB: Right parietal ischemia is known to cause acute confusional state SUGGEST: Repeat CT of head in AM Carotid duplex dopplers. Cardiology consultation/ echocardiogram/continue telemetry Con't Rx for Ammonia. GI consult. Check B12, TSH, RPR Thank you very much, Gus Gonzalez MD
[2017-07-24] MEDS ORDERED: FUROSEMIDE 40 MG/4 ML INJECTABLE VIAL IVPUSH ONE (16:00)
[2017-07-24 21:07] LABS: URINE LEUK ESTERASE Negative (NEGATIVE)
[2017-07-24] MEDS: SENNOSIDES 8.6MG TABLET (FP) PO SCH (21:35)
[2017-07-24] MEDS: DOCUSATE SODIUM 100 MG CAPSULE (FP) PO SCH (21:59)
[2017-07-24] MEDS: LIDOCAINE PATCH REMOVAL MC SCH (21:59)
[2017-07-25] MEDS: FUROSEMIDE 40 MG/4 ML INJECTABLE VIAL IVPUSH SCH ×2 (05:57→14:15)
[2017-07-25 07:17] LABS: THYROID STIMULATING HORMONE 3.65 uIU/ml (0.358-3.74)
--- NOTE | 2017-07-25 08:30 | PN ---
Progress Note, Physician Chief Complaint: chf History of Present Illness: still sob when walks in halls but better leg swelling ? better per pt no palpit, cp, syncope no cigs - Current Medication List Current Medications: Active Medications Acetaminophen (Tylenol -) 650 mg PO Q6H PRN PRN Reason: FEVER OR PAIN Docusate Sodium (Colace -) 300 mg PO HS [facility] Last Admin: 07/24/17 21:59 Dose: 300 mg Enoxaparin Sodium (Lovenox -) 40 mg SQ DAILY [facility] Last Admin: 07/24/17 11:20 Dose: 40 mg Furosemide (Lasix Injection -) 40 mg IVPUSH BID@0600,1400 [facility] Last Admin: 07/25/17 05:57 Dose: 40 mg Lactulose (Cephulac (Oral Use)) 20 gm PO TID PRN PRN Reason: CONSTIPATION Lidocaine (Lidoderm Patch -) 1 patch TP DAILY [facility] Last Admin: 07/24/17 11:20 Dose: 1 patch Metoprolol Succinate (Toprol Xl -) 50 mg PO BID [facility] Last Admin: 07/24/17 22:00 Dose: Not Given Miscellaneous (Lidoderm Patch Removal) 1 each MC DAILY@2200 [facility] Last Admin: 07/24/17 21:59 Dose: 1 each Ondansetron HCl (Zofran Odt -) 4 mg SL Q8H PRN PRN Reason: NAUSEA AND/OR VOMITING Last Admin: 07/21/17 10:11 Dose: 4 mg Polyethylene Glycol (Miralax (For Daily Use) -) 17 gm PO DAILY [facility] Last Admin: 07/24/17 11:20 Dose: Not Given Rifaximin (Xifaxan -) 550 mg PO BID [facility] Last Admin: 07/24/17 22:02 Dose: 550 mg Senna (Senna -) 1 tab PO HS [facility] Last Admin: 07/24/17 21:35 Dose: Not Given - Objective Vital Signs: Vital Signs Temperature 97.6 F 07/25/17 07:56 Pulse Rate 54 L 07/25/17 07:56 Respiratory Rate 19 07/25/17 07:58 Blood Pressure 112/62 07/25/17 07:56 O2 Sat by Pulse Oximetry (%) 95 07/25/17 07:58 Constitutional: Yes: No Distress, Calm Eyes: No: Sclera Icterus HENT: No: Nasal Congestion Cardiovascular: Yes: Regular Rate and Rhythm, S1, S2, Other (PMI non diplaced). No: JVD (in chair), Gallop, Murmur Respiratory: Yes: CTA Bilaterally, Diminished (bases). No: Accessory Muscle Use , Rales, Wheezes Gastrointestinal: Yes: Normal Bowel Sounds, Soft. No: Tenderness Musculoskeletal: Yes: Other (No kyphosis) Extremities: No: Cold Edema: Yes (1+ pretib) Integumentary: No: Jaundice Neurological: Yes: Alert, Oriented (x3) Psychiatric: No: Agitated Labs: CBC, BMP 07/24/17 10:55 07/24/17 10:55 INR, PTT INR 1.34 (0.82-1.09) H 07/23/17 05:05 - ....Imaging EKG: Other (tele: NSR, artifact) Assessment/Plan echo 04/2017: tds; lvef>70%, mild josie, lvot obstruction, nl rv, mac, mikala, findings c/w hcm echo 06/2017: nl lv/rv, mod olaf, mod mr, mild tr, nl rvsp a/p: 71 f hx HCM, venous insuff/le edema, here with sob, le edema. HOCM, acute on chronic right sided chf, venous insuff/le edema: -saw dr hines first time in 2016 with severely decompensated R > L heart failure. refused repeatedly to f/u in office or do home wt/lab monitoring with diuresis. -admitted with vol overload/chf here, in setting of having self-d/c'd torsemide (100 qd) few months a go because she felt it was making her confused. -BNP 580 here. -07/19: now s/p 3 doses of lasix 40 mg IV (BID yesterday and a dose this am). sbp drop to 80's this am. will hold IV bid lasix --> transition to daily dosing. -07/20-: wt decreasing, cr stable, cont lasix 40 iv qd. holding ARB -07/23: wt decreasing but slowly, bp and cr stable, will give lasix 40 iv bid today instead of qd -wt decreasing, labs stable--cont lasix 40 iv bid HCM: -seen on recent echo as outpt. -cont bb. -pt declined office f/u, hence could not complete risk stratification for VT/ sudden . however, pt's >70 yo with no prior h/o suspicious syncope or ventric arrhythmia are felt to be at extremely low risk AMS, +acute Right occipitoparietal CVA: -seen by neuro, plan per their recs -carotids, MRI pending -cont tele to monitor for AF pancytopenia. - denies hx. mgm't per pmd. cirrhosis with ascites: -? sec to chronic congestion, as pt has had untreated right sided CHF for some time -s/p paracentesis here -gi following, plan per their recs
[2017-07-25] MEDS: LIDOCAINE 5% TOPICAL PATCH TP SCH (09:31)
[2017-07-25] MEDS: RIFAXIMIN 550 MG TABLET (UD) PO SCH ×2 (09:31→21:35)
[2017-07-25] MEDS: METOPROLOL SUCCINATE 50 MG TAB.SR.24H (FP) PO SCH ×2 (09:31→21:35)
[2017-07-25] MEDS: POLYETHYLENE GLYCOL 3350 119 GM BTL PO SCH (09:32)
[2017-07-25] MEDS: ENOXAPARIN NA (PORCINE) 40 MG/0.4 ML DISP.SYRIN SQ SCH (09:32)
--- NOTE | 2017-07-25 10:58 | CONSULT ---
Admitting History and Physical - Primary Care Physician PCP: Kim Pate - Admission History of Present Illness: The patient is a 71 yo f w/ PMH HTN, HCM admitted to the hospital for the treatment of acute CHF exacerbation. 07/13 with altered mental status. RR called. Per NEURO: Awake, alert, slow to respond. O x [facility]. DENSE LEFT HOMONOMOUS HEMIANOPSIA (denied by patient) ...CN otherwise normal Motor: No drift. + Asterixis. Brisk reflexes except normal AJ's. Toes downgoing. Coord: No FTN dystaxia Sensory: Normal vib on feet. Gait: Deferred. IMP: 1. Toxic-Metabolic (hyperammonemic) encephalopathy 2. Acute Right occipitoparietal CVA. NB: Right parietal ischemia is known to cause acute confusional state Selected Entries 07/24/17 07/24/17 07/24/17 02:00 06:00 10:00 Breakfast Lunch Supper Temperature 98.0 F 98 F 97.4 F L 07/24/17 07/24/17 07/24/17 12:58 14:00 18:00 Breakfast 100% Lunch 100% Supper Temperature 97.6 F 97.7 F 07/24/17 07/24/17 07/25/17 22:00 23:26 02:00 Breakfast Lunch Supper 100% Temperature 98.1 F 97.8 F 07/25/17 07/25/17 06:00 07:56 Breakfast Lunch Supper Temperature 97.6 F 97.6 F Laboratory Tests 07/24/17 10:55 WBC 7.4 D History Source: Patient, Medical Record Limitations to Obtaining History: No Limitations - Past Medical History Cardiovascular: Yes: CHF, HTN - Smoking History Smoking history: Never smoked Aproximately how many cigarettes per day: 0 - Alcohol/Substance Use Hx Alcohol Use: No History - Admission Reason For Visit: SOB - Diagnostics CT Scan: Report Reviewed - General Mental Status: Alert and Oriented, Awake and Alert, Able to Follow Commands Attention: Intact Ability to Follow Directions: Good Head/Neck Control: WFL - Hearing Hearing: Normal Speech Evaluation - Communication Primary Language: CHADIAN Communication: Yes: Within Normal Limits Oral Expression Ability: Yes: No Impairment - Speech Production Able to Make Needs Known: Yes: WNL Intelligibility: Yes: WNL - Speech Characteristics Voice Loudness: Normal Voice Pitch: Yes: Normal Voice Phonatory-based Quality: Yes: Normal Speech Pattern: Normal Speech Clarity: < 100% Nasal Resonance: Normal Articulation: Yes: Precise Rate of Speech: Intact - Language/Auditory Comprehension Follows: Yes: 2 Stage Simple Commands - Language/Verbal Expression Able to Communicate Wants and Needs: Yes: WNL Functional Communication Status: Yes: WNL - Memory/Perception intermediate teacher Memory: Yes: WNL Short Term Memory: Yes: WNL - Swallow Evaluation/Bedside Assessment Current Nutritional Intake: Regular, Thin Liquids Oral Secretions: Yes: WFL Dentition: Yes: Missing Teeth Facial Symmetry at Rest: Symmetrical Facial Symmetry on Retraction: Symmetrical Facial Movement: Controlled Sensation: Normal Against Resistance Opening: Normal Against Resistance Closing: Normal Pucker Lips: Normal Smile: Normal Lingual Movement: Normal, Symmetric Lingual Speed of Movement: Normal Lingual Movement Strgth Against Opposition: Normal Lingual Movement Characteristics: Normal Velopharyngeal Movement: Normal Laryngeal Elevation: WFL Laryngeal Movement: Able to Palpate Bolus Size: WFL Labial Seal: WFL Chewing: WFL Oral Prep Time: WFL A-P Transit: WFL Pocketing: None Timing of Swallow: WFL Coughing/Throat Clear: No Change in Voice: No Recommendations - Speech Evaluation, Impression/Plan Impression: 71 yo, who lost her disabled daughter 2 weeks ago, with recent onset altered mental status. Reported to have decline in ambulation. Speech, swallowing intact. o x 3 and good historian. - Disposition Discharge to: To be Determined - Dysphagia Impressions/Plan Swallowing Skills: WFL Dysphagia Impressions: No Impairment *Silent aspiration: cannot be R/O at bedside Recommendations: Other (PT f/u. STR?) - Recommendations Diet Consistency: Regular Medication Administration: Whole with water Liquids: Thin Liquids
--- NOTE | 2017-07-25 11:01 | PN ---
Progress Note, Physician History of Present Illness: PULMONARY EVENTS NOTED PT CURRENTLY COMFORTABLE,NAD,ALERT - Current Medication List Current Medications: Active Medications Acetaminophen (Tylenol -) 650 mg PO Q6H PRN PRN Reason: FEVER OR PAIN Docusate Sodium (Colace -) 300 mg PO HS [facility] Last Admin: 07/24/17 21:59 Dose: 300 mg Enoxaparin Sodium (Lovenox -) 40 mg SQ DAILY [facility] Last Admin: 07/25/17 09:32 Dose: 40 mg Furosemide (Lasix Injection -) 40 mg IVPUSH BID@0600,1400 [facility] Last Admin: 07/25/17 05:57 Dose: 40 mg Lactulose (Cephulac (Oral Use)) 20 gm PO TID PRN PRN Reason: CONSTIPATION Lidocaine (Lidoderm Patch -) 1 patch TP DAILY [facility] Last Admin: 07/25/17 09:31 Dose: 1 patch Metoprolol Succinate (Toprol Xl -) 50 mg PO BID [facility] Last Admin: 07/25/17 09:31 Dose: 50 mg Miscellaneous (Lidoderm Patch Removal) 1 each MC DAILY@2200 [facility] 234 [facility] Last Admin: 07/24/17 21:59 Dose: 1 each Ondansetron HCl (Zofran Odt -) 4 mg SL Q8H PRN PRN Reason: NAUSEA AND/OR VOMITING Last Admin: 07/21/17 10:11 Dose: 4 mg Polyethylene Glycol (Miralax (For Daily Use) -) 17 gm PO DAILY [facility] Last Admin: 07/25/17 09:32 Dose: 17 grams Rifaximin (Xifaxan -) 550 mg PO BID [facility] Last Admin: 07/25/17 09:31 Dose: 550 mg Senna (Senna -) 1 tab PO [facility] Last Admin: 07/24/17 21:35 Dose: Not Given - Objective Vital Signs: Vital Signs Temperature 97.6 F 07/25/17 07:56 Pulse Rate 54 L 07/25/17 07:56 Respiratory Rate 19 07/25/17 07:58 Blood Pressure 112/62 07/25/17 07:56 O2 Sat by Pulse Oximetry (%) 95 07/25/17 07:58 Constitutional: Yes: Well Nourished, Calm Eyes: Yes: WNL HENT: Yes: WNL Neck: Yes: WNL Cardiovascular: Yes: Regular Rate and Rhythm, S1, S2 Respiratory: Yes: CTA Bilaterally Gastrointestinal: Yes: Normal Bowel Sounds, Soft Extremities: Yes: WNL Edema: Yes Labs: CBC, BMP 07/24/17 10:55 07/24/17 10:55 INR, PTT INR 1.34 (0.82-1.09) H 07/23/17 05:05 Problem List - Problems (1) Thrombocytopenia Code(s): D69.6 - THROMBOCYTOPENIA, UNSPECIFIED (2) CHF (congestive heart failure) Code(s): I50.9 - HEART FAILURE, UNSPECIFIED Qualifiers: Congestive heart failure type: unspecified congestive heart failure type Congestive heart failure chronicity: unspecified congestive heart failure chronicity Qualified Code(s): I50.9 - Heart failure, unspecified (3) Edema Code(s): R60.9 - EDEMA, UNSPECIFIED Qualifiers: Edema type: unspecified Qualified Code(s): R60.9 - Edema, unspecified (4) SOB (shortness of breath) Code(s): R06.02 - SHORTNESS OF BREATH (5) Cor pulmonale Code(s): I27.81 - COR PULMONALE (CHRONIC) Assessment/Plan ASSESSMENT AND PLAN: Hypertrophic Cardiomyopathy Acute CVA HTN Elevated LFTs Thromboctyopenia improving - cautious use of diuretics - beta dana - monitor lytes,plt ct - DVT prophylaxis - lasix - daily wts - f/u head ct - carotids DR DOLAN Problem List - Problems (1) Thrombocytopenia Code(s): D69.6 - THROMBOCYTOPENIA, UNSPECIFIED (2) CHF (congestive heart failure) Code(s): I50.9 - HEART FAILURE, UNSPECIFIED Qualifiers: Congestive heart failure type: unspecified congestive heart failure type Congestive heart failure chronicity: unspecified congestive heart failure chronicity Qualified Code(s): I50.9 - Heart failure, unspecified (3) Edema Code(s): R60.9 - EDEMA, UNSPECIFIED Qualifiers: Edema type: unspecified Qualified Code(s): R60.9 - Edema, unspecified (4) SOB (shortness of breath) Code(s): R06.02 - SHORTNESS OF BREATH (5) Cor pulmonale Code(s): I27.81 - COR PULMONALE (CHRONIC)
--- NOTE | 2017-07-25 13:19 | PATH ---
Cytology Non-Gynecological Report Patient Name: FRANSISCO BURDEN Med. Rec. #: [id number] /Age/Gender: 1945 (Age: 71) / F Account: [id number] Location: 4 W TELEMETRY U Taken: 07/22/2017 Received: 07/22/2017 Reported: 07/25/2017 Physicians: Casper Mi M.D. Specimen(s) Received PERITONEAL FLUID Clinical History Abdominal ascites Final Diagnosis ABDOMINAL FLUID, PARACENTESIS: SATISFACTORY FOR EVALUATION BENIGN (NO MALIGNANT CELLS IDENTIFIED) MESOTHELIAL CELLS AND LYMPHOCYTES PRESENT. Comment: Recommend correlation with clinical findings and follow up as clinically indicated. Electronically Signed Baljit Yi M.D. Gross Description A. Approximately 50 cc of yellow fluid received fixed in 50% alcohol. Two cytofunnels and one cellblock prepared. B. Approximately 1500 cc of yellow fluid received fresh. Two cytofunnels and one cellblock prepared.
--- NOTE | 2017-07-25 14:55 | PN ---
Progress Note (short form) - Note Progress Note: ascitic fluid cytology results noted - benign Problem List - Problems (1) Chronic liver disease and cirrhosis Code(s): K74.60 - UNSPECIFIED CIRRHOSIS OF LIVER; K76.9 - LIVER DISEASE, UNSPECIFIED (2) CHF (congestive heart failure) Code(s): I50.9 - HEART FAILURE, UNSPECIFIED Qualifiers: Congestive heart failure type: unspecified congestive heart failure type Congestive heart failure chronicity: unspecified congestive heart failure chronicity Qualified Code(s): I50.9 - Heart failure, unspecified (3) Ascites Code(s): R18.8 - OTHER ASCITES Qualifiers: Ascites type: other type Qualified Code(s): R18.8 - Other ascites
--- NOTE | 2017-07-25 15:49 | PN ---
Progress Note, Physician Chief Complaint: awake comfortable c/o fatigue - Current Medication List Current Medications: Active Medications Acetaminophen (Tylenol -) 650 mg PO Q6H PRN PRN Reason: FEVER OR PAIN Docusate Sodium (Colace -) 300 mg PO HS [facility] Last Admin: 07/24/17 21:59 Dose: 300 mg Enoxaparin Sodium (Lovenox -) 40 mg SQ DAILY [facility] Last Admin: 07/25/17 09:32 Dose: 40 mg Furosemide (Lasix Injection -) 40 mg IVPUSH BID@0600,1400 [facility] Last Admin: 07/25/17 14:15 Dose: 40 mg Lactulose (Cephulac (Oral Use)) 20 gm PO TID PRN PRN Reason: CONSTIPATION Lidocaine (Lidoderm Patch -) 1 patch TP DAILY [facility] Last Admin: 07/25/17 09:31 Dose: 1 patch Metoprolol Succinate (Toprol Xl -) 50 mg PO BID [facility] Last Admin: 07/25/17 09:31 Dose: 50 mg Miscellaneous (Lidoderm Patch Removal) 1 each MC DAILY@2200 [facility] Last Admin: 07/24/17 21:59 Dose: 1 each Ondansetron HCl (Zofran Odt -) 4 mg SL Q8H PRN PRN Reason: NAUSEA AND/OR VOMITING Last Admin: 07/21/17 10:11 Dose: 4 mg Polyethylene Glycol (Miralax (For Daily Use) -) 17 gm PO DAILY [facility] Last Admin: 07/25/17 09:32 Dose: 17 grams Rifaximin (Xifaxan -) 550 mg PO BID [facility] Last Admin: 07/25/17 09:31 Dose: 550 mg Senna (Senna -) 1 tab PO [facility] Last Admin: 07/24/17 21:35 Dose: Not Given - Objective Vital Signs: Vital Signs Temperature 97.5 F L 07/25/17 14:00 Pulse Rate 65 07/25/17 14:00 Respiratory Rate 20 07/25/17 14:00 Blood Pressure 112/49 07/25/17 14:00 O2 Sat by Pulse Oximetry (%) 95 07/25/17 07:58 Constitutional: Yes: Mild Distress Eyes: Yes: WNL HENT: Yes: WNL Neck: Yes: WNL Cardiovascular: Yes: WNL Respiratory: Yes: WNL Gastrointestinal: Yes: WNL Genitourinary: Yes: WNL Musculoskeletal: Yes: Muscle Weakness Extremities: Yes: WNL Edema: Yes Edema: LLE: Trace, RLE: Trace Peripheral Pulses WNL: Yes Integumentary: Yes: WNL Wound/Incision: Yes: Clean/Dry Neurological: Yes: WNL ...Motor Strength: WNL Psychiatric: Yes: WNL Labs: CBC, BMP 07/24/17 10:55 07/24/17 10:55 INR, PTT INR 1.34 (0.82-1.09) H 07/23/17 05:05 Problem List - Problems (1) CHF (congestive heart failure) Code(s): I50.9 - HEART FAILURE, UNSPECIFIED Qualifiers: Congestive heart failure type: unspecified congestive heart failure type Congestive heart failure chronicity: unspecified congestive heart failure chronicity Qualified Code(s): I50.9 - Heart failure, unspecified (2) Edema Code(s): R60.9 - EDEMA, UNSPECIFIED Qualifiers: Edema type: unspecified Qualified Code(s): R60.9 - Edema, unspecified (3) SOB (shortness of breath) Code(s): R06.02 - SHORTNESS OF BREATH (4) Toxic metabolic encephalopathy Code(s): G92 - TOXIC ENCEPHALOPATHY (5) Chronic liver disease and cirrhosis Code(s): K74.60 - UNSPECIFIED CIRRHOSIS OF LIVER; K76.9 - LIVER DISEASE, UNSPECIFIED Assessment/Plan FOLLOW [facility] LACTULOSE AND XIFAXIN STARTED GI F/U APPRECIATED LASIX FOR CHF DIURESIS DC PLANNING TO [facility]
[2017-07-25] MEDS: SENNOSIDES 8.6MG TABLET (FP) PO SCH (21:35)
[2017-07-25] MEDS: DOCUSATE SODIUM 100 MG CAPSULE (FP) PO SCH (21:35)
[2017-07-25] MEDS: LIDOCAINE PATCH REMOVAL MC SCH (21:40)
[2017-07-26] MEDS: FUROSEMIDE 40 MG/4 ML INJECTABLE VIAL IVPUSH SCH ×2 (06:31→14:07)
[2017-07-26 07:58] LABS: ANION GAP 7 (8-16); CALCIUM 8.4 mg/dL (8.5-10.1); CO2 31 mmol/L (21-32); CREATININE 0.7 mg/dL (0.55-1.02); GLUCOSE,RANDOM 76 mg/dL (74-106)
[2017-07-26] MEDS: LIDOCAINE 5% TOPICAL PATCH TP SCH (09:53)
[2017-07-26] MEDS: RIFAXIMIN 550 MG TABLET (UD) PO SCH ×2 (09:53→21:48)
[2017-07-26] MEDS: ENOXAPARIN NA (PORCINE) 40 MG/0.4 ML DISP.SYRIN SQ SCH (09:53)
[2017-07-26] MEDS: METOPROLOL SUCCINATE 50 MG TAB.SR.24H (FP) PO SCH ×2 (09:53→21:48)
[2017-07-26] MEDS: POLYETHYLENE GLYCOL 3350 119 GM BTL PO SCH (09:54)
--- NOTE | 2017-07-26 10:20 | PN ---
Progress Note, Physician History of Present Illness: pulmonary awake,alert,nad,-c/o sob,-cp - Current Medication List Current Medications: Active Medications Acetaminophen (Tylenol -) 650 mg PO Q6H PRN PRN Reason: FEVER OR PAIN Docusate Sodium (Colace -) 300 mg PO HS [facility] Last Admin: 07/25/17 21:35 Dose: 300 mg Enoxaparin Sodium (Lovenox -) 40 mg SQ DAILY [facility] Last Admin: 07/26/17 09:53 Dose: 40 mg Furosemide (Lasix Injection -) 40 mg IVPUSH BID@0600,1400 [facility] Last Admin: 07/26/17 06:31 Dose: 40 mg Lactulose (Cephulac (Oral Use)) 20 gm PO TID PRN PRN Reason: CONSTIPATION Lidocaine (Lidoderm Patch -) 1 patch TP DAILY [facility] Last Admin: 07/26/17 09:53 Dose: 1 patch Metoprolol Succinate (Toprol Xl -) 50 mg PO BID [facility] Last Admin: 07/26/17 09:53 Dose: 50 mg Miscellaneous (Lidoderm Patch Removal) 1 each MC DAILY@2200 [facility] Last Admin: 07/25/17 21:40 Dose: 1 each Ondansetron HCl (Zofran Odt -) 4 mg SL Q8H PRN PRN Reason: NAUSEA AND/OR VOMITING Last Admin: 07/21/17 10:11 Dose: 4 mg Polyethylene Glycol (Miralax (For Daily Use) -) 17 gm PO DAILY [facility] Last Admin: 07/26/17 09:54 Dose: 17 grams Rifaximin (Xifaxan -) 550 mg PO BID [facility] Last Admin: 07/26/17 09:53 Dose: 550 mg Senna (Senna -) 1 tab PO [facility] Last Admin: 07/25/17 21:35 Dose: 1 tab - Objective Vital Signs: Vital Signs Temperature 98.5 F 07/26/17 07:52 Pulse Rate 77 07/26/17 07:52 Respiratory Rate 20 07/26/17 07:54 Blood Pressure 114/69 07/26/17 07:52 O2 Sat by Pulse Oximetry (%) 98 07/26/17 07:54 Constitutional: Yes: Well Nourished, Calm Eyes: Yes: WNL HENT: Yes: WNL Neck: Yes: WNL Cardiovascular: Yes: Regular Rate and Rhythm, S1, S2 Respiratory: Yes: Diminished Gastrointestinal: Yes: Normal Bowel Sounds, Soft Extremities: Yes: WNL Edema: Yes Labs: 07/26/17 05:22 INR, PTT Problem List - Problems (1) Thrombocytopenia Code(s): D69.6 - THROMBOCYTOPENIA, UNSPECIFIED (2) CHF (congestive heart failure) Code(s): I50.9 - HEART FAILURE, UNSPECIFIED Qualifiers: Congestive heart failure type: unspecified congestive heart failure type Congestive heart failure chronicity: unspecified congestive heart failure chronicity Qualified Code(s): I50.9 - Heart failure, unspecified (3) Edema Code(s): R60.9 - EDEMA, UNSPECIFIED Qualifiers: Edema type: unspecified Qualified Code(s): R60.9 - Edema, unspecified (4) SOB (shortness of breath) Code(s): R06.02 - SHORTNESS OF BREATH (5) Cor pulmonale Code(s): I27.81 - COR PULMONALE (CHRONIC) Assessment/Plan ASSESSMENT AND PLAN: Hypertrophic Cardiomyopathy Acute CVA HTN Elevated LFTs Thromboctyopenia improving - cautious use of diuretics - beta dana - monitor lytes,plt ct - DVT prophylaxis - lasix - daily wts DR DOLAN Problem List - Problems (1) Thrombocytopenia Code(s): D69.6 - THROMBOCYTOPENIA, UNSPECIFIED (2) CHF (congestive heart failure) Code(s): I50.9 - HEART FAILURE, UNSPECIFIED Qualifiers: Congestive heart failure type: unspecified congestive heart failure type Congestive heart failure chronicity: unspecified congestive heart failure chronicity Qualified Code(s): I50.9 - Heart failure, unspecified (3) Edema Code(s): R60.9 - EDEMA, UNSPECIFIED Qualifiers: Edema type: unspecified Qualified Code(s): R60.9 - Edema, unspecified (4) SOB (shortness of breath) Code(s): R06.02 - SHORTNESS OF BREATH (5) Cor pulmonale Code(s): I27.81 - COR PULMONALE (CHRONIC)
--- NOTE | 2017-07-26 12:26 | PN ---
Progress Note (short form) - Note Progress Note: Chief Complaint: chf History of Present Illness: still sob when walks in halls and intermittently at rest. mild improvement in leg swelling since yesterday. no palpit, cp, syncope no cigs Current Medications Acetaminophen (Tylenol -) 650 mg PO Q6H PRN PRN Reason: FEVER OR PAIN Docusate Sodium (Colace -) 300 mg PO HS [facility] Last Admin: 07/25/17 21:35 Dose: 300 mg Enoxaparin Sodium (Lovenox -) 40 mg SQ DAILY [facility] Last Admin: 07/26/17 09:53 Dose: 40 mg Furosemide (Lasix Injection -) 40 mg IVPUSH BID@0600,1400 [facility] Last Admin: 07/26/17 06:31 Dose: 40 mg Lactulose (Cephulac (Oral Use)) 20 gm PO TID PRN PRN Reason: CONSTIPATION Lidocaine (Lidoderm Patch -) 1 patch TP DAILY [facility] Last Admin: 07/26/17 09:53 Dose: 1 patch Metoprolol Succinate (Toprol Xl -) 50 mg PO BID [facility] Last Admin: 07/26/17 09:53 Dose: 50 mg Miscellaneous (Lidoderm Patch Removal) 1 each MC DAILY@2200 [facility] Last Admin: 07/25/17 21:40 Dose: 1 each Ondansetron HCl (Zofran Odt -) 4 mg SL Q8H PRN PRN Reason: NAUSEA AND/OR VOMITING Last Admin: 07/21/17 10:11 Dose: 4 mg Polyethylene Glycol (Miralax (For Daily Use) -) 17 gm PO DAILY [facility] Last Admin: 07/26/17 09:54 Dose: 17 grams Rifaximin (Xifaxan -) 550 mg PO BID [facility] Last Admin: 07/26/17 09:53 Dose: 550 mg Senna (Senna -) 1 tab PO HS [facility] Last Admin: 07/25/17 21:35 Dose: 1 tab - Objective Vital Signs: Vital Signs - 24 hr 07/25/17 07/25/17 07/25/17 14:00 17:00 19:40 Temperature 97.5 F L 98.8 F 98.8 F Pulse Rate 65 64 73 Respiratory 20 18 20 Rate Blood Pressure 112/49 120/60 133/68 O2 Sat by Pulse Oximetry (%) 12/12/0607/26/17 07/26/17 21:00 02:00 06:04 Temperature 98.7 F 98.5 F Pulse Rate 66 74 Respiratory 20 20 Rate Blood Pressure 132/70 104/54 O2 Sat by Pulse 98 Oximetry (%) 07/26/17 07/26/17 07:52 07:54 Temperature 98.5 F Pulse Rate 77 Respiratory 20 20 Rate Blood Pressure 114/69 O2 Sat by Pulse 98 Oximetry (%) Intake & Output 07/24/17 07/25/17 07/26/17 07/27/17 07:59 07:59 07:59 07:59 Intake Total 688 639 500 Output Total 600 Balance 688 639 -100 Weight 221 lb 220 lb 3.2 oz 212 lb 6.4 oz Constitutional: Yes: No Distress, Calm Eyes: No: Sclera Icterus HENT: No: Nasal Congestion Cardiovascular: Yes: Regular Rate and Rhythm, S1, S2, Other (PMI non diplaced). No: JVD (in chair), Gallop, Murmur Respiratory: Yes: CTA Bilaterally, Diminished (bases). No: Accessory Muscle Use , Rales, Wheezes Gastrointestinal: Yes: Normal Bowel Sounds, Soft. No: Tenderness Musculoskeletal: Yes: Other (No kyphosis) Extremities: No: Cold Edema: Yes (1+ pretib) Integumentary: No: Jaundice Neurological: Yes: Alert, Oriented (x3) Psychiatric: No: Agitated Labs: CBC, BMP 07/24/17 10:55 07/26/17 05:22 - ....Imaging EKG: Other (tele: NSR, artifact) Assessment/Plan echo 04/2017: tds; lvef>70%, mild josie, lvot obstruction, nl rv, mac, mikala, findings c/w hcm echo 06/2017: nl lv/rv, mod olaf, mod mr, mild tr, nl rvsp carotid u/s here: no hemodynamically significant stenosis. a/p: 71 f hx HCM, venous insuff/le edema, here with sob, le edema. HOCM, acute on chronic right sided chf, venous insuff/le edema: -saw dr hines first time in 2016 with severely decompensated R > L heart failure. refused repeatedly to f/u in office or do home wt/lab monitoring with diuresis. -admitted with vol overload/chf here, in setting of having self-d/c'd torsemide (100 qd) few months a go because she felt it was making her confused. -BNP 580 here. -07/19: now s/p 3 doses of lasix 40 mg IV (BID yesterday and a dose this am). sbp drop to 80's this am. will hold IV bid lasix --> transition to daily dosing. -07/20-: wt decreasing, cr stable, cont lasix 40 iv qd. holding ARB -07/23: wt decreasing but slowly, bp and cr stable, will give lasix 40 iv bid today instead of qd -07/26: wt decreasing, labs stable--cont lasix 40 iv bid HCM: -seen on recent echo as outpt. -cont bb. -pt declined office f/u, hence could not complete risk stratification for VT/ sudden . however, pt's >68 yo with no prior h/o suspicious syncope or ventric arrhythmia are felt to be at extremely low risk AMS, +acute Right occipitoparietal CVA: -seen by neuro, plan per their recs -carotids unremarkable. repeat head CT unchanged. -cont tele to monitor for AF pancytopenia. - denies hx. mgm't per pmd. cirrhosis with ascites: -? sec to chronic congestion, as pt has had untreated right sided CHF for some time -s/p paracentesis here -gi following, plan per their recs
[2017-07-26] MEDS ORDERED: POTASSIUM CHLORIDE TABS 20 MEQ TABLET.ER (FP) PO ONE (13:00)
--- NOTE | 2017-07-26 15:28 | PN ---
Progress Note, Physician Chief Complaint: AWAKE FAILED PHYSICAL THERAPY COULD NOT WALK WITHOUT ASSISTANCE - Current Medication List Current Medications: Active Medications Acetaminophen (Tylenol -) 650 mg PO Q6H PRN PRN Reason: FEVER OR PAIN Docusate Sodium (Colace -) 300 mg PO HS [facility] Last Admin: 07/25/17 21:35 Dose: 300 mg Enoxaparin Sodium (Lovenox -) 40 mg SQ DAILY [facility] Last Admin: 07/26/17 09:53 Dose: 40 mg Furosemide (Lasix Injection -) 40 mg IVPUSH BID@0600,1400 [facility] Last Admin: 07/26/17 14:07 Dose: 40 mg Lactulose (Cephulac (Oral Use)) 20 gm PO TID PRN PRN Reason: CONSTIPATION Lidocaine (Lidoderm Patch -) 1 patch TP DAILY [facility] Last Admin: 07/26/17 09:53 Dose: 1 patch Metoprolol Succinate (Toprol Xl -) 50 mg PO BID [facility] Last Admin: 07/26/17 09:53 Dose: 50 mg Miscellaneous (Lidoderm Patch Removal) 1 each MC DAILY@2200 [facility] Last Admin: 07/25/17 21:40 Dose: 1 each Ondansetron HCl (Zofran Odt -) 4 mg SL Q8H PRN PRN Reason: NAUSEA AND/OR VOMITING Last Admin: 07/21/17 10:11 Dose: 4 mg Polyethylene Glycol (Miralax (For Daily Use) -) 17 gm PO DAILY [facility] Last Admin: 07/26/17 09:54 Dose: 17 grams Rifaximin (Xifaxan -) 550 mg PO BID [facility] Last Admin: 07/26/17 09:53 Dose: 550 mg Senna (Senna -) 1 tab PO [facility] Last Admin: 07/25/17 21:35 Dose: 1 tab - Objective Vital Signs: Vital Signs Temperature 98.5 F 07/26/17 07:52 Pulse Rate 77 07/26/17 07:52 Respiratory Rate 20 07/26/17 07:54 Blood Pressure 114/69 07/26/17 07:52 O2 Sat by Pulse Oximetry (%) 98 07/26/17 07:54 Constitutional: Yes: Mild Distress Eyes: Yes: WNL HENT: Yes: WNL Neck: Yes: WNL Cardiovascular: Yes: WNL Respiratory: Yes: WNL Gastrointestinal: Yes: WNL Genitourinary: Yes: WNL Musculoskeletal: Yes: Muscle Weakness Extremities: Yes: WNL Edema: Yes Edema: LLE: 1+, RLE: 1+ Peripheral Pulses WNL: Yes Integumentary: Yes: WNL Wound/Incision: Yes: Clean/Dry Neurological: Yes: WNL ...Motor Strength: LLE, RLE Psychiatric: Yes: WNL Labs: CBC, BMP 07/24/17 10:55 07/26/17 05:22 INR, PTT INR 1.34 (0.82-1.09) H 07/23/17 05:05 Problem List - Problems (1) CHF (congestive heart failure) Code(s): I50.9 - HEART FAILURE, UNSPECIFIED Qualifiers: Congestive heart failure type: unspecified congestive heart failure type Congestive heart failure chronicity: unspecified congestive heart failure chronicity Qualified Code(s): I50.9 - Heart failure, unspecified (2) Edema Code(s): R60.9 - EDEMA, UNSPECIFIED Qualifiers: Edema type: unspecified Qualified Code(s): R60.9 - Edema, unspecified (3) SOB (shortness of breath) Code(s): R06.02 - SHORTNESS OF BREATH (4) Toxic metabolic encephalopathy Code(s): G92 - TOXIC ENCEPHALOPATHY (5) Chronic liver disease and cirrhosis Code(s): K74.60 - UNSPECIFIED CIRRHOSIS OF LIVER; K76.9 - LIVER DISEASE, UNSPECIFIED Assessment/Plan DISCUSSED WITH PATIENTS JT SUTTON AGREED TO SEND HIS MOM FOR SNF TO [place] IN [facility] AND [facility] OUT PATIENT
[2017-07-26] MEDS: DOCUSATE SODIUM 100 MG CAPSULE (FP) PO SCH (21:47)
[2017-07-26] MEDS: SENNOSIDES 8.6MG TABLET (FP) PO SCH (21:48)
[2017-07-26] MEDS: LIDOCAINE PATCH REMOVAL MC SCH (21:48)
[2017-07-27] MEDS: FUROSEMIDE 40 MG/4 ML INJECTABLE VIAL IVPUSH SCH (06:07)
[2017-07-27 06:21] VITALS: TEMP 98.4
[2017-07-27 07:21] VITALS: BP 118/52; PULSE 62
[2017-07-27 07:32] LABS: ANION GAP 10 (8-16); CALCIUM 8.5 mg/dL (8.5-10.1); CO2 30 mmol/L (21-32); CREATININE 0.7 mg/dL (0.55-1.02); GLUCOSE,RANDOM 71 mg/dL (74-106); MAGNESIUM 1.9 mg/dL (1.8-2.4)
[2017-07-27 07:56] LABS: ALBUMIN 2.2 g/dl (3.4-5.0); BILIRUBIN,DIRECT 0.5 mg/dL (0.0-0.2); BILIRUBIN,TOTAL 1.3 mg/dL (0.2-1.0); TOT PROT 6.5 g/dl (6.4-8.2)
[2017-07-27] MEDS: METOPROLOL SUCCINATE 50 MG TAB.SR.24H (FP) PO SCH (09:55)
[2017-07-27] MEDS: RIFAXIMIN 550 MG TABLET (UD) PO SCH (09:55)
[2017-07-27] MEDS: LIDOCAINE 5% TOPICAL PATCH TP SCH (09:55)
--- NOTE | 2017-07-27 11:35 | PN ---
Progress Note, Physician History of Present Illness: pulmonary alert,nad,oob-chair,-sob,-cp,-cough - Current Medication List Current Medications: Active Medications Acetaminophen (Tylenol -) 650 mg PO Q6H PRN PRN Reason: FEVER OR PAIN Docusate Sodium (Colace -) 300 mg PO HS [facility] Last Admin: 07/26/17 21:47 Dose: Not Given Furosemide (Lasix Injection -) 40 mg IVPUSH BID@0600,1400 [facility] Last Admin: 07/27/17 06:07 Dose: 40 mg Lactulose (Cephulac (Oral Use)) 20 gm PO TID PRN PRN Reason: CONSTIPATION Lidocaine (Lidoderm Patch -) 1 patch TP DAILY [facility] Last Admin: 07/27/17 09:55 Dose: 1 patch Metoprolol Succinate (Toprol Xl -) 50 mg PO BID [facility] Last Admin: 07/27/17 09:55 Dose: 50 mg Miscellaneous (Lidoderm Patch Removal) 1 each MC DAILY@2200 [facility] Last Admin: 07/26/17 21:48 Dose: 1 each Ondansetron HCl (Zofran Odt -) 4 mg SL Q8H PRN PRN Reason: NAUSEA AND/OR VOMITING Last Admin: 07/21/17 10:11 Dose: 4 mg Polyethylene Glycol (Miralax (For Daily Use) -) 17 gm PO DAILY [facility] Last Admin: 07/26/17 09:54 Dose: 17 grams Rifaximin (Xifaxan -) 550 mg PO BID [facility] Last Admin: 07/27/17 09:55 Dose: 550 mg Senna (Senna -) 1 tab PO [facility] Last Admin: 07/26/17 21:48 Dose: Not Given - Objective Vital Signs: Vital Signs Temperature 98.4 F 07/27/17 07:20 Pulse Rate 62 07/27/17 07:20 Respiratory Rate 20 07/27/17 07:21 Blood Pressure 118/52 07/27/17 07:20 O2 Sat by Pulse Oximetry (%) 100 07/27/17 07:21 Constitutional: Yes: Well Nourished, Calm Eyes: Yes: WNL HENT: Yes: WNL Neck: Yes: WNL Cardiovascular: Yes: Regular Rate and Rhythm, S1, S2 Respiratory: Yes: CTA Bilaterally Gastrointestinal: Yes: Normal Bowel Sounds, Soft Extremities: Yes: WNL Edema: Yes Labs: CBC, BMP 07/24/17 10:55 07/27/17 06:45 INR, PTT INR 1.34 (0.82-1.09) H 07/23/17 05:05 Problem List - Problems (1) Thrombocytopenia Code(s): D69.6 - THROMBOCYTOPENIA, UNSPECIFIED (2) CHF (congestive heart failure) Code(s): I50.9 - HEART FAILURE, UNSPECIFIED Qualifiers: Congestive heart failure type: unspecified congestive heart failure type Congestive heart failure chronicity: unspecified congestive heart failure chronicity Qualified Code(s): I50.9 - Heart failure, unspecified (3) Edema Code(s): R60.9 - EDEMA, UNSPECIFIED Qualifiers: Edema type: unspecified Qualified Code(s): R60.9 - Edema, unspecified (4) SOB (shortness of breath) Code(s): R06.02 - SHORTNESS OF BREATH (5) Cor pulmonale Code(s): I27.81 - COR PULMONALE (CHRONIC) Assessment/Plan ASSESSMENT AND PLAN: Hypertrophic Cardiomyopathy Acute CVA HTN Elevated LFTs Thromboctyopenia - cautious use of diuretics - beta dana - monitor lytes,plt ct - DVT prophylaxis - lasix - daily wts DR DOLAN Problem List - Problems (1) Thrombocytopenia Code(s): D69.6 - THROMBOCYTOPENIA, UNSPECIFIED (2) CHF (congestive heart failure) Code(s): I50.9 - HEART FAILURE, UNSPECIFIED Qualifiers: Congestive heart failure type: unspecified congestive heart failure type Congestive heart failure chronicity: unspecified congestive heart failure chronicity Qualified Code(s): I50.9 - Heart failure, unspecified (3) Edema Code(s): R60.9 - EDEMA, UNSPECIFIED Qualifiers: Edema type: unspecified Qualified Code(s): R60.9 - Edema, unspecified (4) SOB (shortness of breath) Code(s): R06.02 - SHORTNESS OF BREATH (5) Cor pulmonale Code(s): I27.81 - COR PULMONALE (CHRONIC)
--- NOTE | 2017-07-27 11:40 | PN ---
Progress Note (short form) - Note Progress Note: cc: le edema, sob S: No cp, palps, dizzy, loc, pnd. sob/le edema a little better Current Medications Generic Name Dose Route Start Last Admin Trade Name Freq PRN Reason Stop Dose Admin Acetaminophen 650 mg 07/18/17 19:11 Tylenol - PO Q6H PRN FEVER OR PAIN Docusate Sodium 300 mg 07/23/17 22:00 07/26/17 21:47 Colace - PO Not Given HS TAMMY Furosemide 40 mg 07/24/17 14:00 07/27/17 06:07 Lasix Injection - IVPUSH 40 mg BID@0600,1400 T[facility]MY Administration Lactulose 20 gm 07/24/17 13:09 Cephulac (Oral Use) PO TID PRN CONSTIPATION Lidocaine 1 patch 07/19/17 10:00 07/27/17 09:55 Lidoderm Patch - TP 1 patch DAILY [facility] Administration Metoprolol Succinate 50 mg 07/20/17 10:00 07/27/17 09:55 Toprol Xl - PO 50 mg BID [facility]MY Administration Miscellaneous 1 each 07/18/17 19:15 07/26/17 21:48 Lidoderm Patch Removal MC 1 each DAILY@2200 [facility] Administration Ondansetron HCl 4 mg 07/18/17 19:11 07/21/17 10:11 Zofran Odt - SL 4 mg Q8H PRN Administration NAUSEA AND/OR VOMITING Polyethylene Glycol 17 gm 07/21/17 11:00 07/26/17 09:54 Miralax (For Daily Use) - PO 17 grams DAILY [facility] Administration Rifaximin 550 mg 07/24/17 13:15 07/27/17 09:55 Xifaxan - PO 550 mg BID [facility]MY Administration Senna 1 tab 07/21/17 11:00 07/26/17 21:48 Senna - PO Not Given HS TAMMY pe: Vital Signs Period Temp Pulse Resp BP Sys/Patel Pulse Ox Last 24 Hr 98.1 F-98.8 F 62-76 18-20 98-128/42-71 100-100 nad no jvd rrr s1s2 nomrg cta bl nl eff aaox3 1 le edema bl, no c/c no jaundice diaphoresis abd nt nd pos bs CBC, BMP 07/24/17 10:55 07/27/17 06:45 ecg 07/18/17: sr, nl intervals, no ischemic changes cxr: clear lungs echo 04/2017: tds; lvef>70%, mild josie, lvot obstruction, nl rv, mac, mikala, findings c/w hcm echo 06/2017: nl lv/rv, mod olaf, mod mr, mild tr, nl rvsp tele: sr a/p: 71 f hx HCM, venous insuff/le edema, here with sob, le edema. HOCM, acute on chronic right sided chf, venous insuff/le edema: -saw dr hines first time in 2016 with severely decompensated R > L heart failure. refused repeatedly to f/u in office or do home wt/lab monitoring with diuresis. -admitted with vol overload/chf here, in setting of having self-d/c'd torsemide (100 qd) few months a go because she felt it was making her confused. -BNP 580 here. -07/19: now s/p 3 doses of lasix 40 mg IV (BID yesterday and a dose this am). sbp drop to 80's this am. will hold IV bid lasix --> transition to daily dosing. -07/20-: wt decreasing, cr stable, cont lasix 40 iv qd. holding ARB -07/23: wt decreasing but slowly, bp and cr stable, will give lasix 40 iv bid today instead of qd -07/26-: wt decreasing, labs stable--cont lasix 40 iv bid HCM: -seen on recent echo as outpt. -cont bb. -pt declined office f/u, hence could not complete risk stratification for VT/ sudden . however, pt's >68 yo with no prior h/o suspicious syncope or ventric arrhythmia are felt to be at extremely low risk AMS, +acute Right occipitoparietal CVA: -seen by neuro, plan per their recs -carotids unremarkable. repeat head CT unchanged. pancytopenia. - denies hx. mgm't per pmd. cirrhosis with ascites: -? sec to chronic congestion, as pt has had untreated right sided CHF for some time -s/p paracentesis here -gi following, plan per their recs
--- NOTE | 2017-07-27 11:45 | DS ---
Physical Examination Vital Signs: Vital Signs Temperature 98.4 F 07/27/17 07:20 Pulse Rate 62 07/27/17 07:20 Respiratory Rate 20 07/27/17 07:21 Blood Pressure 118/52 07/27/17 07:20 O2 Sat by Pulse Oximetry (%) 100 07/27/17 07:21 Findings/Remarks: AWAKE ALERT NAD Constitutional: Yes: Mild Distress Eyes: Yes: WNL HENT: Yes: WNL Neck: Yes: WNL Cardiovascular: Yes: WNL Respiratory: Yes: WNL Gastrointestinal: Yes: WNL Renal/: Yes: WNL Musculoskeletal: Yes: Muscle Weakness Extremities: Yes: WNL Edema: Yes Edema: LLE: Trace, RLE: Trace Peripheral Pulses WNL: Yes Integumentary: Yes: WNL Wound/Incision: Yes: Clean/Dry Neurological: Yes: WNL ...Motor Strength: WNL Psychiatric: Yes: WNL Labs: CBC, BMP 07/24/17 10:55 07/27/17 06:45 Discharge Summary Reason For Visit: SOB Current Active Problems Ascites (Acute) CHF (congestive heart failure) (Acute) Chronic liver disease and cirrhosis (Acute) Cor pulmonale (Acute) Edema (Acute) SOB (shortness of breath) (Acute) Thrombocytopenia (Acute) Toxic metabolic encephalopathy (Acute) Procedures: Principal: CT BRAIN Other Procedures: LIVER MRI Hospital Course: ADMITTED ACUTE CHF WITH LIVER DISESE HYPERAMMONIA. TREATED WITH IV LASIX AND LACTULOSE. DC PLANNING TO SNF Condition: Fair - Instructions Diet, Activity, Other Instructions: SEE CARDIOLOGY OUTPATIENT GI PLAN TO FOLLOW AFTER REHAB SEE DR LIEBERMAN 1 MONTH LOW SODIUM DIET Referrals: Gatito Lieberman MD, [Primary Care Provider] - Disposition: [facility] F[facility] - Home Medications Comprehensive Discharge Medication List: Ambulatory Orders Metoprolol Succinate [Toprol Xl] 100 mg PO DAILY 01/15/15
[2017-07-27] MEDS ORDERED: FUROSEMIDE 40 MG TABLET (FP) PO SCH (14:00)
[2017-07-27] MEDS: POLYETHYLENE GLYCOL 3350 119 GM BTL PO SCH (14:33)
== END 2017-07-27 15:06 | DRG 291 ==
LOC: JER 10:29 → JERBED 14:36 → J4W 22:04
PROVIDERS: ADMIT Family Medicine; ATTEND Family Medicine
PROC: 0W9G3ZX Drainage of Peritoneal Cavity, Percutaneous Approach, Diagnostic (ICD-10-PCS; principal; 2017-07-21)
DX: I11.0 Hypertensive heart disease with heart failure (principal); G93.41 Metabolic encephalopathy; I63.8 Other cerebral infarction; D61.818 Other pancytopenia; R18.8 Other ascites; E72.4 Disorders of ornithine metabolism; I50.813 Acute on chronic right heart failure; I42.2 Other hypertrophic cardiomyopathy; D69.6 Thrombocytopenia, unspecified; D64.89 Other specified anemias; R79.89 Other specified abnormal findings of blood chemistry; E66.8 Other obesity; Z68.36 Body mass index [BMI] 36.0-36.9, adult; K74.60 Unspecified cirrhosis of liver; E88.81 Metabolic syndrome and other insulin resistance; I87.2 Venous insufficiency (chronic) (peripheral); I27.81 Cor pulmonale (chronic); R41.82 Altered mental status, unspecified
CPT/HCPCS: 36415; 70450-TC; 71010-TC; 76700-TC; 76942-TC; 80048; 80053; 80061; 80074; 80076; 81003; 81015; 82042; 82105; 82140; 82150; 82550; 82607; 82728; 82747; 82945; 83010; 83036; 83540; 83550; 83615; 83721; 83735; 83880; 84100; 84157; 84443; 84478; 84484; 85014; 85025; 85027; 85044; 85610; 85730; 86038; 86593; 86708; 87070; 87075; 87086; 87102; 87116; 87205; 87206; 87210; 88108; 88305-TC; 89051; 93005; 93010; 93306-TC; 93880-TC; 97116-GP; 97161-GP; 99283-25

== ENCOUNTER 2018-06-04 18:31 | Emergency (ER) | payer OTHER ==
[2018-06-04 18:59] VITALS: BP 144/77; PULSE 67; TEMP 98.3; BMI 32.9
[2018-06-04] MEDS ORDERED: ACETAMINOPHEN 1000 MG/100 ML VIAL (NON FORMULARY) IVPB ONE (19:16)
[2018-06-04] MEDS ORDERED: SODIUM CHLORIDE 0.9% 500 ML INFUS.BAG IV ONE (19:16)
--- NOTE | 2018-06-04 19:29 | PDOC ---
Attending Attestation - HPI HPI: 06/04/18 20:20 The patient is a 72-year-old woman, with a significant past medical history of Ascites, Chronic liver disease, cirrhosis, CHF, Edema, who presents to the emergency department for evaluation of abdominal pain, vomiting and diarrhea since 4PM today. She states she ate a pre-packaged muffin from a store and believes to have food poisoning. She denies chest pain, SOB, dizziness, fatigue. She denies VELASQUEZ, fever, chills, cough, bowel or bladder incontinence/retention. Allergies: No Known Drug Allergies Past Surgical History: None reported. Social History: No tobacco, ETOH or recreational drug use. Primary Care Physician: Dr. Gatito Lieberman - Medical Decision Making 06/04/18 20:20 Documentation prepared by Tori Christiansen, acting as senior medical transcriptionist for Effie Arnold MD <Tori Christiansen - Last Filed: 06/04/18 20:20> - Resident Resident Name: Stan De La Cruz - ED Attending Attestation I have performed the following: I have examined & evaluated the patient, The case was reviewed & discussed with the resident, I agree w/resident's findings & plan, Exceptions are as noted - Physicial Exam PE: GENERAL: Awake, alert, and fully oriented, in no acute distress HEAD: No signs of trauma EYES: PERRLA, EOMI, sclera anicteric, conjunctiva clear ENT: Auricles normal inspection, hearing grossly normal, nares patent, oropharynx clear without exudates. Moist mucosa NECK: Normal ROM, supple, no lymphadenopathy, JVD, or masses LUNGS: Breath sounds equal, clear to auscultation bilaterally. No wheezes, and no crackles HEART: Regular rate and rhythm, normal S1 and S2, no murmurs, rubs or gallops ABDOMEN: Soft, obese, +fluid wave. Nontender, normoactive bowel sounds. No guarding, no rebound. No masses EXTREMITIES: Normal range of motion, no edema. No clubbing or cyanosis. No cords, erythema, or tenderness NEUROLOGICAL: Cranial nerves II through XII grossly intact. Normal speech. Motor and sensation intact. SKIN: Warm, Dry, normal turgor, no rashes or lesions noted. - Medical Decision Making Pt with N/V/D after eating a muffin and drinking milk. No signs of acute abdomen , however, CT obtained in light of her complex medical history. No significant findings. Will obtain labs. If wnl, will DC home. <Effie Arnold - Last Filed: 06/04/18 21:23>
--- NOTE | 2018-06-04 19:41 | PDOC ---
History of Present Illness - General Chief Complaint: Pain Stated Complaint: CHEST PAIN/ABDOMINAL PAIN Time Seen by Provider: 06/04/18 18:58 - History of Present Illness Initial Comments: Mrs. Rodgers is a 72 yo F w a hx of cirrhosis, HOCM, right sided CHF, HTN, Venous inssuficiency, IL's, who presents to the ER with the CC of diffuse abdominal pain and many episodes of watery diarrhea and vomiting - NBNB. Her abdominal pain began today at 4 pm and now here in the ED she states it is much better and has mainly resolved. She also states she is not nauseous here in the ED. She believes she got food poisoning from a packaged muffin she ate earlier today. She denies any recent fevers, chills or infections. She denies any chest pain, SOB, difficulty breathing or back pain. Denies dysuria, frequency, urgency, or constipation. PCP: Dr. Lieberman Allergies: NKA, NKDA Social Hx: denies using cigarettes, alcohol, or illicit drugs. Past History - Past Medical History Allergies/Adverse Reactions: Allergies Allergy/AdvReac Type Severity Reaction Status Date / Time No Known Allergies Allergy Verified 06/04/18 18:59 Home Medications: Ambulatory Orders Acetaminophen [Tylenol .Regular Strength -] 650 mg PO Q6H PRN tablet 07/27/17 Metoprolol Succinate [Toprol XL -] 100 mg PO DAILY 06/04/18 Torsemide [Demadex] 10 mg PO DAILY 06/04/18 COPD: No CHF: Yes GI Disorders: Yes (gerd) HTN: Yes Liver Disease: Yes (? cirrhosis) - Immunization History Immunization Up to Date: Yes - Suicide/Smoking/Psychosocial Hx Smoking Status: No Smoking History: Never smoked Years of Tobacco Use: 10 Have you smoked in the past 12 months: No Number of Cigarettes Smoked Daily: 0 Information on smoking cessation initiated: No Hx Alcohol Use: No Drug/Substance Use Hx: No Substance Use Type: None Review of Systems - Review of Systems Comments:: CONSTITUTIONAL: Present: loss of appetite Absent: fever, chills, diaphoresis, generalized weakness, malaise HEENT: Absent: rhinorrhea, nasal congestion, throat pain, throat swelling, difficulty swallowing, mouth swelling, ear pain, eye pain, visual Changes CARDIOVASCULAR: Present: peripheral edema Absent: chest pain, syncope, palpitations, irregular heart rate, lightheadedness RESPIRATORY: Present: dyspnea with exertion, orthopnea Absent: cough, shortness of breath, wheezing, stridor, hemoptysis GASTROINTESTINAL: Present: Abdominal pain, abdominal distension, nausea, vomiting, diarrhea Absent: constipation, melena, hematochezia GENITOURINARY: Absent: dysuria, frequency, urgency, hesitancy, hematuria, flank pain, genital pain MUSCULOSKELETAL: Absent: myalgia, arthralgia, joint swelling SKIN: Absent: rash, itching, pallor HEMATOLOGIC/IMMUNOLOGIC: Absent: easy bleeding, easy bruising, lymphadenopathy, frequent infections ENDOCRINE: Absent: unexplained weight gain, unexplained weight loss, heat intolerance, cold intolerance NEUROLOGIC: Present: unsteady gait Absent: headache, focal weakness or paresthesias, dizziness, seizure, mental status changes, bladder or bowel incontinence PSYCHIATRIC: Absent: anxiety, depression, suicidal or homicidal ideation, hallucinations. *Physical Exam - Vital Signs Last Vital Signs Temp Pulse Resp BP Pulse Ox 98.3 F 67 18 144/77 100 06/04/18 18:57 06/04/18 18:57 06/04/18 18:57 06/04/18 18:57 06/04/18 18:57 - Physical Exam Comments: GENERAL: Awake and alert. No acute distress. HEENT: Mucous membranes are dry Normocephalic, atraumatic. PERRLA, EOMI. No conjunctival pallor. Sclera are non- icteric. Oropharynx is clear. NECK: Supple. Full ROM. No JVD. No thyromegaly. No lymphadenopathy. CARDIOVASCULAR: Regular rate and rhythm. Holosystolic murmur most prominent in the aortic region. No rubs, or gallops. Distal pulses are 1+ and symmetric. PULMONARY: No evidence of respiratory distress. Lungs clear to auscultation bilaterally. No wheezing, rales or rhonchi. ABDOMINAL: Soft. Non-tender. Non-distended. No rebound or guarding. No organomegaly. Normoactive bowel sounds. MUSCULOSKELETAL Normal range of motion at all joints. No bony deformities or tenderness. No CVA tenderness. EXTREMITIES: 2+ edema in both legs up to the knee No cyanosis. No clubbing. No calf tenderness. SKIN: Warm and dry. Normal capillary refill. No rashes. No jaundice. NEUROLOGICAL: Alert, awake, appropriate. Cranial nerves 2-12 intact. No deficits to light touch in face, upper extremities and lower extremities. No motor deficits in the in face, upper extremities and lower extremities. Normal speech. Gait is normal without ataxia. PSYCHIATRIC: Cooperative. Good eye contact. Appropriate mood and affect. Heart Score/ECG Review - History History: Slightly suspicious - Electrocardiogram EKG: Normal - Age Age: >/= 65 - Risk Factors Risk Factors Heart Score: Yes Hx Hypercholesterolemia, Yes Hx Hypertension, Yes Hx Obesity - ECG Intrepretation Rhythm: Regular Rhythm - ECG Impressions Normal ECG: No Non-specific ST Elevation: No Ischemic Changes: No ED Treatment Course - LABORATORY CBC & Chemistry Diagram: 06/04/18 20:15 06/04/18 20:50 - RADIOLOGY Radiology Studies Ordered: Category Date Time Status ABDOMEN & PELVIS CT W/O CONTR [CT] Stat CT Scan 06/04/18 19:14 Ordered CHEST PA & LAT [RAD] Stat Radiology 06/04/18 19:14 Ordered Medical Decision Making - Medical Decision Making Mrs. Rodgers is a 72 yo F w a hx of cirrhosis, HOCM, right sided CHF, HTN, Venous inssuficiency, IL's, who presents to the ER with the CC of diffuse abdominal pain and many episodes of watery diarrhea and vomiting - NBNB. -she states her pain is better here in the ED. DD includes but not limited to: food poisoning, gastroenteritis, ACS, SBP, ascitis, other infection, pancreatitis, chf exacerbation. Plan: Cbc, Cmp, Trop, Lipase, ua/uc, EKG, CXR, CTAP, Iv hydration - NS, re- assess. EKG shows normal sinus rhythm and no acute infarct. CTAP shows no acute pathology that would likely explain her vomiting or diarrhea. Trop negative. Will DC patient with PCP FU. Patient is well appearing and ate a full tray of dinner with no nausea or vomiting. *DC/Admit/Observation/Transfer Diagnosis at time of Disposition: Abdominal pain, Nausea & vomiting, Diarrhea - Discharge Dispostion Disposition: HOME Condition at time of disposition: Improved Decision to Admit order: No - Referrals Referrals: Gatito Lieberman MD, MD [Primary Care Provider] - - Patient Instructions Printed Discharge Instructions: DI for Food Poisoning, DI for Viral Gastroenteritis -- Adult Additional Instructions: You came into the ER with nausea, vomiting, diarrhea and abdominal pain. We did some tests and determined you were not having a heart attack. We believe you got food poisoning or some stomach virus which is the cause of your vomiting and diarrhea. Please drink fluids and make sure to stay hydrated. It is very important that you schedule a follow up appointment with your primary care doctor in the next 3 to 5 days to make sure you are feeling and getting better. Please come back to the ER if your abdominal pain worsens, you can't eat food, drink water, have chest pain or any other new or worsening concerns. Thank you for coming to the [facility] ER. We hope you feel better soon! Print Language: MAURITIAN - Post Discharge Activity
[2018-06-04] MEDS ORDERED: ACETAMINOPHEN INJECTION 100 ML IVPB ONE (19:48)
[2018-06-04 20:28] LABS: BASO % 0.4 % (0-2.0); EOS % 0.1 % (0-4.5); HEMATOCRIT 32.7 % (32.4-45.2); HEMOGLOBIN 10.6 GM/dL (10.7-15.3); LYMPH % 10.3 % (8-40); MCH 29.4 pg (25.7-33.7); MCHC 32.6 g/dl (32.0-36.0); MEAN CELL VOLUME 90.2 fl (80-96); MEAN PLT VOLUME 11.1 fl (7.5-11.1); NEUT % 85.2 % (42.8-82.8); PLATELET COUNT 78 K/MM3 (134-434); RBC 3.62 M/mm3 (3.60-5.2); RDW 15.1 % (11.6-15.6); WHITE BLOOD COUNT 5.1 K/mm3 (4.0-10.0)
[2018-06-04 20:52] LABS: URINE APPEARANCE CLEAR; URINE BILIRUBIN NEGATIVE (<2.0 mg/dL); URINE COLOR AMBER; URINE GLUCOSE (UA) NEGATIVE (NEGATIVE); URINE KETONE NEGATIVE (NEGATIVE); URINE LEUK ESTERASE NEGATIVE (NEGATIVE); URINE NITRITE NEGATIVE (NEGATIVE); URINE PROTEIN NEGATIVE (NEGATIVE); URINE UROBILINOGEN 4.0 E.U/dl mg/dL (0.2-1.0)
[2018-06-04 21:26] LABS: ALBUMIN 2.4 g/dl (3.4-5.0); ALK PHOS 121 U/L (45-117); ANION GAP 5 MMOL/L (8-16); BILIRUBIN,TOTAL 2.9 mg/dL (0.2-1); BLOOD UREA NITROGEN 10 mg/dL (7-18); CALCIUM 8.4 mg/dL (8.5-10.1); CHLORIDE 111 mmol/L (98-107); CO2 28 mmol/L (21-32); CREATININE 0.7 mg/dL (0.55-1.3); GLUCOSE,RANDOM 99 mg/dL (74-106); SGOT/AST 61 U/L (15-37); SGPT/ALT 32 U/L (13-61); SODIUM 145 mmol/L (136-145); TOT PROT 6.6 g/dl (6.4-8.2)
--- NOTE | 2018-06-05 10:17 | EKG ---
Test Reason : Blood Pressure : / mmHG Vent. Rate : 064 BPM Atrial Rate : 064 BPM P-R Int : 144 ms QRS Dur : 096 ms QT Int : 438 ms P-R-T Axes : 073 -03 035 degrees QTc Int : 451 ms NORMAL SINUS RHYTHM MINIMAL VOLTAGE CRITERIA FOR LVH, MAY BE NORMAL VARIANT ABNORMAL ECG WHEN COMPARED WITH ECG OF 18-JUL-2017 14:52, NO SIGNIFICANT CHANGE WAS FOUND Confirmed by MAGGI MATHEWS, MONTSERRAT ([id number]) on 06/05/2018 10:16:47 AM Referred By: Confirmed By:MONTSERRAT TAY MD
== END 2018-06-04 22:19 | disposition home or self-care (01) ==
LOC: JER 18:31
DX: R10.84 Generalized abdominal pain (principal); I10 Essential (primary) hypertension; I50.9 Heart failure, unspecified; I42.1 Obstructive hypertrophic cardiomyopathy; I87.2 Venous insufficiency (chronic) (peripheral); I25.2 Old myocardial infarction
CPT/HCPCS: 36415; 71046-TC-FY; 74176-TC; 80053; 81003; 84484; 85025; 87086; 93005; 93010; 99283-25; J0131

== ENCOUNTER 2018-06-06 10:20 | Emergency (ER) | payer OTHER ==
[2018-06-06 10:27] VITALS: TEMP 98; BMI 32.9
--- NOTE | 2018-06-06 10:44 | PDOC ---
History of Present Illness - General Chief Complaint: Injury Stated Complaint: FALL Time Seen by Provider: 06/06/18 10:27 History Source: Patient Exam Limitations: No Limitations - History of Present Illness Initial Comments: 06/06/18 10:39 Pt is a 72yo f with PMH of HTN, HCOM, CHF, cirrhosis, venous insufficiency, AR BIBA after tripping and hitting the side of her head on the coffee table. Pt said she was getting out of the couch when she tripped over the coffee table and hit the R side of her head on it. She did not lose consciousness and denies feeling dizzy. She denies headache, changes in vision, neck pain, chest pain, sob, weakness/numbness/tingling. She is not taking blood thinners PCP: Mio PMH: see hpi Meds: see med rec Social: denies Allergies: nkda Past History - Past Medical History Allergies/Adverse Reactions: Allergies Allergy/AdvReac Type Severity Reaction Status Date / Time No Known Allergies Allergy Verified 06/06/18 10:23 Home Medications: Ambulatory Orders Metoprolol Succinate [Toprol XL -] 100 mg PO DAILY 06/04/18 Torsemide [Demadex] 10 mg PO DAILY 06/04/18 COPD: No CHF: Yes GI Disorders: Yes (gerd) HTN: Yes Hypercholesterolemia: Yes Liver Disease: Yes (? cirrhosis) - Immunization History Immunization Up to Date: Yes - Suicide/Smoking/Psychosocial Hx Smoking Status: No Smoking History: Never smoked Years of Tobacco Use: 10 Have you smoked in the past 12 months: No Number of Cigarettes Smoked Daily: 0 Hx Alcohol Use: No Drug/Substance Use Hx: No Substance Use Type: None Review of Systems - Review of Systems Constitutional: No: Chills, Fever HEENTM: No: Eye Pain, Recent change in vision, Hearing Loss Respiratory: No: Cough, Shortness of Breath Cardiac (ROS): No: Chest Pain, Lightheadedness, Palpitations, Syncope ABD/GI: Yes: Diarrhea. No: Constipated, Nausea, Vomiting, Abdominal cramping : No: Burning, Dysuria Musculoskeletal: No: Back Pain, Gout, Joint Pain, Joint Swelling Integumentary: Yes: Bruising Neurological: Yes: Headache. No: Numbness, Paresthesia, Tremors, Weakness *Physical Exam - Vital Signs Last Vital Signs Temp Pulse Resp BP Pulse Ox 98.0 F 75 18 106/74 95 06/06/18 10:23 06/06/18 10:23 06/06/18 10:23 06/06/18 10:23 06/06/18 10:23 - Physical Exam General Appearance: Yes: Appropriately Dressed, Obese. No: Apparent Distress HEENT: positive: EOMI, VICKY, Pharynx Normal, Other (abrasion with ecchymosis over R bony process of R orbit. No pain with eye movements. No conjunctival hemorrhage.). negative: Scleral Icterus (R), Scleral Icterus (L) Neck: positive: Trachea midline, Supple. negative: Lymphadenopathy (R), Lymphadenopathy (L) Respiratory/Chest: positive: Lungs Clear, Normal Breath Sounds. negative: Rales , Rhonchi, Stridor, Wheezing Cardiovascular: positive: Regular Rhythm, Regular Rate, S1, S2. negative: Edema , JVD, Murmur Vascular Pulses: Carotid (R): 2+, Carotid (L): 2+, Dorsalis-Pedis (R): 2+, Doralis-Pedis (L): 2+ Gastrointestinal/Abdominal: positive: Tender, Soft. negative: Guarding, Rebound , Tenderness Musculoskeletal: negative: CVA Tenderness, Decreased Range of Motion, Muscle Spasm, Vertebral Tenderness Extremity: positive: Normal Capillary Refill, Pelvis Stable Integumentary: positive: Normal Color, Dry, Warm Neurologic: positive: management planner II-XII NML intact, Fully Oriented, Alert, Normal Mood/ Affect, Normal Response, Motor Strength 5/5. negative: Sensory Deficit Medical Decision Making - Medical Decision Making 06/06/18 13:53 Pt is a 72yo f with PMH of HTN, HCOM, CHF, cirrhosis, venous insufficiency, AR BIBA after tripping and hitting the side of her head on the coffee table. Vitals: wnl PE: ecchmosis over orbit process R with small lac. R/o intracranial bleed and fracture. Will order CT head. Laceration small (5mm) superficial, no stitching necessary. CT negative for bleed and fracture. Getting reaady to d/c pt when she started complaining of L knee pain. Xray ordered and given Tylenol. Not tender to palpation, full ROM 06/06/18 15:41 Xray normal. Will reevalulate 06/06/18 15:49 Pt is ambulatory and feeling better. Can be dc home *DC/Admit/Observation/Transfer Diagnosis at time of Disposition: Head injury Qualifiers: Encounter type: initial encounter Qualified Code(s): S09.90XA - Unspecified injury of head, initial encounter - Discharge Dispostion Disposition: HOME Condition at time of disposition: Good Decision to Admit order: No - Referrals Referrals: Gatito Lieberman MD, MD [Primary Care Provider] - - Patient Instructions Printed Discharge Instructions: How to Prevent Falls, DI for Closed Head Injury Additional Instructions: You were seen here today for evaluation of head injury after falling. The Cat Scan was normal. Continue to follow up with your primary care doctor for maintaining your health. If you have headache, you can take Tylenol for pain as directed. Come back to the emergency room if: you develop headache, you start feeling dizzy, you start noticing weakness, numbness or tingling or if any new concerning symptom develops. Thank you - Post Discharge Activity
--- NOTE | 2018-06-06 11:31 | PDOC ---
Attending Attestation - Resident Resident Name: Ning Flores - ED Attending Attestation I have performed the following: I have examined & evaluated the patient, The case was reviewed & discussed with the resident, I agree w/resident's findings & plan, Exceptions are as noted - HPI HPI: 06/06/18 11:12 72y F hx of htn, cirrhosis, chf presents sp fall, unwitnessed tripping and hitting her head on a coffee table, no syncope prodrome, no loc, cp, sob, lightheadedness, n/v, vision changes, focal weakness, or pain. not on a/c. pt notes mild pain to her scalp. pt denies any recent diarrhea, dysuria, frequency , foul smelling urine. pt states she normally ambulates with a walker but was not using it today. - Physicial Exam PE: 06/06/18 14:37 GENERAL: The patient is awake, alert, and fully oriented, Nontoxic - in no acute distress. HEAD: Normocephalic, contusion and mild tenderness on L periorbital region EYES: extraocular movements intact, sclera anicteric, conjunctiva clear. ENT: Normal voice, Moist mucous membranes. NECK: Normal range of motion, supple LUNGS: Breath sounds equal, clear to auscultation bilaterally. No wheezes, no rhonchi, no rales. HEART: Regular rate and rhythm, normal S1 and S2 without murmur, rub or gallop. ABDOMEN: Soft, nontender, No guarding, no rebound. . No CVA tenderness EXTREMITIES: Normal range of motion, +b/l edema, mild pain with ROM of L knee, no focal bony tenderness, normal ROM of b/l hips, R knee, ankles NEUROLOGICAL: No facial assymetry, Normal speech, moving all 4 extermities symmetrically SKIN: Warm, Dry, normal turgor, - Medical Decision Making 06/06/18 14:38 72y F sp mechanicaml fall ct head negative for acute process, +meningioma will have pt fu as outpatient 06/06/18 15:10 xray noted for severe arhtirits will ambulate pt and will dc if she is feeling much better Heart Score/ECG Review - ECG Impressions Comment:: 06/06/18 12:28 Twelve-lead EKG was performed and reviewed by me. There is normal sinus rhythm with a normal rate. Rate of 87 The axis is normal. The intervals are normal. There is normal R wave progression There are no ST or T wave abnormalities. Impression: Normal twelve-lead EKG
[2018-06-06] MEDS ORDERED: ACETAMINOPHEN 500 MG TABLET (FP) PO ONE (13:25)
[2018-06-06] MEDS ORDERED: ACETAMINOPHEN 325 MG TABLET (FP) ONE (13:34)
[2018-06-06 17:16] VITALS: BP 110/72; PULSE 72
--- NOTE | 2018-06-07 15:02 | EKG ---
Test Reason : Blood Pressure : / mmHG Vent. Rate : 087 BPM Atrial Rate : 087 BPM P-R Int : 162 ms QRS Dur : 080 ms QT Int : 380 ms P-R-T Axes : 023 000 039 degrees QTc Int : 457 ms NORMAL SINUS RHYTHM NORMAL ECG WHEN COMPARED WITH ECG OF 04-JUN-2018 19:00, NO SIGNIFICANT CHANGE WAS FOUND Confirmed by PEARL WASSERMAN MD ([id number]) on 06/07/2018 3:02:16 PM Referred By: Confirmed By:PEARL WASSERMAN MD
== END 2018-06-06 17:10 | disposition home or self-care (01) ==
LOC: JER 10:20
DX: S05.11XA Contusion of eyeball and orbital tissues, right eye, initial encounter (principal); S00.211A Abrasion of right eyelid and periocular area, initial encounter; W01.190A Fall on same level from slipping, tripping and stumbling with subsequent striking against furniture, initial encounter; Y93.89 Activity, other specified; Y92.038 Other place in apartment as the place of occurrence of the external cause; Y99.8 Other external cause status; I25.10 Atherosclerotic heart disease of native coronary artery without angina pectoris; I50.9 Heart failure, unspecified; I42.1 Obstructive hypertrophic cardiomyopathy; I25.2 Old myocardial infarction; I10 Essential (primary) hypertension; K74.60 Unspecified cirrhosis of liver
CPT/HCPCS: 70450-TC; 73564-TC-LT-FY; 93005; 93010; 99283-25

== ENCOUNTER 2018-09-05 09:51 | Inpatient (IN) | payer OTHER ==
--- NOTE | 2018-09-05 10:04 | PDOC ---
History of Present Illness - General Chief Complaint: Injury Stated Complaint: FALL Time Seen by Provider: 09/05/18 10:02 - History of Present Illness Initial Comments: 09/05/18 10:03 Ms. Rodgers is a 73 yo female w/ pmh of HTN, HLD, HCOM, CHF, cirrhosis, venous insufficiency, BI who presents for evaluation after fall last night. History is unclear however patient reports falling out of a chair yesterday and was on the ground until home office claims examiner found her on the ground this morning. Patient has no complaints at this time. Family who is with her reports she has had a steady decline in the past few months and that she is at her new baseline at this time. The patient denies chest pain, shortness of breath, headache and dizziness. Denies fever, chills, nausea, vomit, diarrhea and constipation. Denies dysuria, frequency, urgency and hematuria. Past History - Past Medical History Allergies/Adverse Reactions: Allergies Allergy/AdvReac Type Severity Reaction Status Date / Time No Known Allergies Allergy Verified 06/06/18 10:23 Home Medications: Ambulatory Orders Metoprolol Succinate [Toprol XL -] 100 mg PO DAILY 06/04/18 Torsemide [Demadex] 10 mg PO DAILY 06/04/18 Spironolactone [Aldactone] 25 mg PO DAILY 09/05/18 COPD: No CHF: Yes GI Disorders: Yes (gerd) HTN: Yes Hypercholesterolemia: Yes Liver Disease: Yes (? cirrhosis) - Immunization History Immunization Up to Date: Yes - Suicide/Smoking/Psychosocial Hx Smoking Status: No Smoking History: Never smoked Years of Tobacco Use: 10 Have you smoked in the past 12 months: No Number of Cigarettes Smoked Daily: 0 Information on smoking cessation initiated: No Hx Alcohol Use: No Drug/Substance Use Hx: No Substance Use Type: None Review of Systems - Review of Systems Comments:: 09/05/18 10:03 GENERAL/CONSTITUTIONAL: No fever or chills. No weakness. HEAD, EYES, EARS, NOSE AND THROAT: No change in vision. No ear pain or discharge. No sore throat. CARDIOVASCULAR: No chest pain or shortness of breath RESPIRATORY: No cough, wheezing, or hemoptysis. GASTROINTESTINAL: No nausea, vomiting, diarrhea or constipation. GENITOURINARY: No dysuria, frequency, or change in urination. MUSCULOSKELETAL: No joint or muscle swelling or pain. No neck or back pain. SKIN: No rash NEUROLOGIC: No headache, vertigo, loss of consciousness, or change in strength/ sensation. ENDOCRINE: No increased thirst. No abnormal weight change HEMATOLOGIC/LYMPHATIC: No anemia, easy bleeding, or history of blood clots. ALLERGIC/IMMUNOLOGIC: No hives or skin allergy. *Physical Exam - Vital Signs Last Vital Signs Temp Pulse Resp BP Pulse Ox 97.2 F L 67 18 130/55 L 0 L 09/05/18 09:57 09/05/18 09:57 09/05/18 09:57 09/05/18 09:57 09/05/18 09:57 - Physical Exam Comments: 09/05/18 10:03 GENERAL: Awake, alert, and fully oriented to baseline, in no acute distress HEAD: No signs of trauma, normocephalic, atraumatic EYES: PERRLA, EOMI, sclera anicteric, conjunctiva clear ENT: Auricles normal inspection, hearing grossly normal, nares patent, oropharynx clear without exudates. Moist mucosa NECK: Normal ROM, supple, no lymphadenopathy, JVD, or masses LUNGS: No distress, speaks full sentences, clear to auscultation bilaterally HEART: Regular rate and rhythm, normal S1 and S2, no murmurs, rubs or gallops, peripheral pulses normal and equal bilaterally. ABDOMEN: Soft, nontender, normoactive bowel sounds. No guarding, no rebound. No masses EXTREMITIES: +Significant YARELI lower extremity edema 4+. Normal range of motion , no edema. No clubbing or cyanosis. NEUROLOGICAL: Cranial nerves II through XII grossly intact. Normal speech, normal gait, no focal sensorimotor deficits SKIN: Warm, Dry, normal turgor, no rashes or lesions noted. Moderate Sedation - Procedure Monitoring Vital Signs: Procedure Monitoring Vital Signs Temperature 97.2 F L 09/05/18 09:57 Pulse Rate 67 09/05/18 09:57 Respiratory Rate 18 09/05/18 09:57 Blood Pressure 130/55 L 09/05/18 09:57 O2 Sat by Pulse Oximetry (%) 0 L 09/05/18 09:57 ED Treatment Course - LABORATORY CBC & Chemistry Diagram: 09/05/18 10:50 09/05/18 10:50 Medical Decision Making - Medical Decision Making 09/05/18 13:09 Ms. Rodgers is a 73 female w/ pmh as described who presents with declining ability to function and repeated falls. Patient evaluated with cardiac/ electrolyte/infectious labs, head CT, CXR. History concerning for unknown cause of all and declining ability to care for self. Discussed patient with hospitalist who recommended admission for further evaluation and possible placement. Agree with recommendation and admitting patient. Labs grossly wnl as below. Head CT negative. CXR negative. EKG normal sinus. Patient currently pending UA. Laboratory Results - last 24 hr 09/05/18 09/05/18 10:50 10:50 WBC 6.6 RBC 3.78 Hgb 10.7 Hct 33.6 MCV 88.8 MCH 28.4 MCHC 31.9 L RDW 16.5 H Plt Count 79 L MPV 10.1 Absolute Neuts (auto) 4.5 Neutrophils % 67.8 D Lymphocytes % 20.6 D Monocytes % 10.6 H D Eosinophils % 0.4 D Basophils % 0.6 Nucleated RBC % 0 Sodium 140 Potassium 4.3 Chloride 106 Carbon Dioxide 26 Anion Gap 8 BUN 13 Creatinine 0.9 Creat Clearance w eGFR > 60 Random Glucose 89 Calcium 8.7 Total Bilirubin 1.7 H AST 45 H ALT 24 Alkaline Phosphatase 136 H Creatine Kinase 314 H Creatine Kinase Index 1.2 CK-MB (CK-2) 4.0 H Troponin I 0.02 B-Natriuretic Peptide 249.8 Total Protein 8.0 Albumin 2.5 L *DC/Admit/Observation/Transfer Diagnosis at time of Disposition: Failure to thrive Qualifiers: Failure to thrive age range: in adult Qualified Code(s): R62.7 - Adult failure to thrive Fall Qualifiers: Encounter type: initial encounter Qualified Code(s): W19.XXXA - Unspecified fall, initial encounter - Discharge Dispostion Decision to Admit order: Yes - Referrals Referrals: Gatito Lieberman MD, MD [Primary Care Provider] - - Patient Instructions - Post Discharge Activity
--- NOTE | 2018-09-05 10:50 | PDOC ---
Attending Attestation - Resident Resident Name: Rayshawn Moran - ED Attending Attestation I have performed the following: I have examined & evaluated the patient, The case was reviewed & discussed with the resident, I agree w/resident's findings & plan - HPI HPI: 09/05/18 10:50 73-year-old female with history of progressive dementia, decreasing physical functionality walking with walker at baseline, family had private home health aide start yesterday found this morning at 9 AM on the ground by her home health aide. Last seen at 6 PM last night, unclear what time she fell though she denies extended period of time on the floor, she has no complaints whatsoever. No acute changes in her mental status or physical function, but present for evaluation s/p fall. no headache/vision change/cough/sob/n/v/d - Physicial Exam PE: 09/05/18 10:53 afebrile, o2 98% room air, VSS alert, demented but answering questions appropriately and following commands atraumatic without focal bone ttp or deformity FROM neck s1s2 reg with 3/6 terri, ctab abd soft 2-3+ edema B/L, R chronically worse than L 2+ distal pulses neuro nonfocal - Medical Decision Making 09/05/18 10:54 73-year-old female with worsening physical and mental decline over several months presents now after being found on floor by home health aide and family, no evidence of acute infectious or dehydration or neurological or cardiopulmonary process, likely manifestation of progressive decline. Check labs, urinalysis EKG, chest x-ray, CT head Social work/case management consult regarding disposition Heart Score/ECG Review #1 ECG reviewed & interpreted by me at: 11:03 General ECG Interpretation: Sinus Rhythm, Normal Rate (62), Normal Intervals ( qtc 458, borderline LVH), No acute ischemic changes
[2018-09-05 11:22] LABS: BASO % 0.6 % (0-2.0); EOS % 0.4 % (0-4.5); HEMATOCRIT 33.6 % (32.4-45.2); HEMOGLOBIN 10.7 GM/dL (10.7-15.3); LYMPH % 20.6 % (8-40); MCH 28.4 pg (25.7-33.7); MCHC 31.9 g/dl (32.0-36.0); MEAN CELL VOLUME 88.8 fl (80-96); MEAN PLT VOLUME 10.1 fl (7.5-11.1); MONO % 10.6 % (3.8-10.2); NEUT % 67.8 % (42.8-82.8); PLATELET COUNT 79 K/MM3 (134-434); RBC 3.78 M/mm3 (3.60-5.2); RDW 16.5 % (11.6-15.6); WHITE BLOOD COUNT 6.6 K/mm3 (4.0-10.0)
[2018-09-05 11:58] LABS: ALBUMIN 2.5 g/dl (3.4-5.0); ALK PHOS 136 U/L (45-117); ANION GAP 8 MMOL/L (8-16); BILIRUBIN,TOTAL 1.7 mg/dL (0.2-1); BLOOD UREA NITROGEN 13 mg/dL (7-18); CALCIUM 8.7 mg/dL (8.5-10.1); CHLORIDE 106 mmol/L (98-107); CO2 26 mmol/L (21-32); CREATININE 0.9 mg/dL (0.55-1.3); GLUCOSE,RANDOM 89 mg/dL (74-106); N-TERMINAL BNP 249.8 pg/ml (5-450); POTASSIUM 4.3 mmol/L (3.5-5.1); SGOT/AST 45 U/L (15-37); SGPT/ALT 24 U/L (13-61); SODIUM 140 mmol/L (136-145)
--- NOTE | 2018-09-05 16:26 | HP ---
Admitting History and Physical - Primary Care Physician PCP: Gatito Lieberman MD - Admission Chief Complaint: S/p fall History of Present Illness: Patient is a 73 y/o female with past medical history of HTN, HLD, CHF, cirrhosis , venous insufficiency. Patient was found on the ground by her CATERING COORDINATOR this morning. Patient unable to say how she fell. Denies hitting her head and denies LOC. Patient son at bedside said that patient has increased forgetfulness and confusion these past months. Patient denies dizziness, chest pain, palpitations. 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) History of Recent Travel: No <Kelly Jimenez - Last Filed: 09/05/18 16:48> Home Medications <Kelly Jimenez - Last Filed: 09/05/18 16:48> <Kim Pate - Last Filed: 09/08/18 21:05> - Allergies Allergies/Adverse Reactions: Allergies Allergy/AdvReac Type Severity Reaction Status Date / Time No Known Allergies Allergy Verified 06/06/18 10:23 - Home Medications Home Medications: Ambulatory Orders Metoprolol Succinate [Toprol XL -] 100 mg PO DAILY 06/04/18 Torsemide [Demadex] 10 mg PO DAILY 06/04/18 Spironolactone [Aldactone] 25 mg PO DAILY 09/05/18 Review of Systems - Review of Systems Constitutional: reports: No Symptoms Eyes: reports: No Symptoms HENT: reports: No Symptoms Neck: reports: No Symptoms Cardiovascular: reports: No Symptoms Respiratory: reports: No Symptoms Gastrointestinal: reports: No Symptoms Genitourinary: reports: No Symptoms Breasts: reports: No Symptoms Reported Musculoskeletal: reports: Muscle Weakness, Other (lower back pain) Integumentary: reports: No Symptoms Neurological: reports: Confusion Endocrine: reports: No Symptoms Hematology/Lymphatic: reports: No Symptoms Psychiatric: reports: No Symptoms <Kelly Jimenez - Last Filed: 09/05/18 16:48> Physical Examination Vital Signs: Vital Signs Temperature 97.2 F L 09/05/18 09:57 Pulse Rate 67 09/05/18 09:57 Respiratory Rate 18 09/05/18 09:57 Blood Pressure 130/55 L 09/05/18 09:57 O2 Sat by Pulse Oximetry (%) 0 L 09/05/18 09:57 Constitutional: Yes: No Distress, Calm Eyes: Yes: Conjunctiva Clear HENT: Yes: Atraumatic Neck: Yes: Supple Cardiovascular: Yes: Regular Rate and Rhythm Respiratory: Yes: Regular, CTA Bilaterally Gastrointestinal: Yes: Normal Bowel Sounds, Soft Renal/: Yes: Incontinence Musculoskeletal: Yes: Muscle Weakness Extremities: Yes: WNL Edema: Yes Edema: LLE: 2+, RLE: 3+ Integumentary: Yes: WNL Neurological: Yes: Alert, Pre-Existing Deficit Psychiatric: Yes: Alert Labs: CBC, BMP 09/05/18 10:50 09/05/18 10:50 <Kelly Jimenez - Last Filed: 09/05/18 16:48> Vital Signs: Vital Signs Temperature 97.8 F 09/08/18 20:02 Pulse Rate 72 09/08/18 20:02 Respiratory Rate 19 09/08/18 20:02 Blood Pressure 108/61 09/08/18 20:02 O2 Sat by Pulse Oximetry (%) 99 09/08/18 10:00 Labs: CBC, BMP 09/08/18 06:00 09/08/18 06:00 <Kim Pate - Last Filed: 09/08/18 21:05> Imaging - Results Chest X-ray: Report Reviewed (Cardiomegaly, no acute pathology) Cat Scan: Report Reviewed (Head CT scan: no significant interval change or gross acute intracranial pathology) <Kelly Jimenez - Last Filed: 09/05/18 16:48> Problem List - Problems (1) HTN (hypertension) Code(s): I10 - ESSENTIAL (PRIMARY) HYPERTENSION (2) Failure to thrive Code(s): HAR8260 - Qualifiers: Failure to thrive age range: in adult Qualified Code(s): R62.7 - Adult failure to thrive (3) Fall Code(s): W19.XXXA - UNSPECIFIED FALL, INITIAL ENCOUNTER Qualifiers: Encounter type: initial encounter Qualified Code(s): W19.XXXA - Unspecified fall, initial encounter (4) CHF (congestive heart failure) Code(s): I50.9 - HEART FAILURE, UNSPECIFIED <Kelly Jimenez - Last Filed: 09/05/18 16:48> Assessment/Plan -admit to hosp -tele monitoring -cardiology and pulm consult for CHF -neurology consult for increased confusion -GI consult for hx of cirrhosis -elev LFT will trend -elev CK, will trend -hx of HLD not on meds, will order lipid panel -cont with metoprolol succinate, spironolactone, torsemide -low Na diet -1L fluid restriction -daily weight -urine culture pending -dvt ppx <Kelly Jimenez - Last Filed: 09/05/18 16:48> I HAVE EXAMINED THE PATIENT AND AGREE WITH ABOVE NOTE <Kim Pate - Last Filed: 09/08/18 21:05>
--- NOTE | 2018-09-05 18:11 | EKG ---
Test Reason : Blood Pressure : / mmHG Vent. Rate : 062 BPM Atrial Rate : 062 BPM P-R Int : 166 ms QRS Dur : 072 ms QT Int : 452 ms P-R-T Axes : -07 -05 022 degrees QTc Int : 458 ms POOR DATA QUALITY, INTERPRETATION MAY BE ADVERSELY AFFECTED NORMAL SINUS RHYTHM MINIMAL VOLTAGE CRITERIA FOR LVH, MAY BE NORMAL VARIANT CANNOT RULE OUT ANTERIOR INFARCT , AGE UNDETERMINED ABNORMAL ECG Confirmed by MD RONALD, CHICO ([id number]) on 09/05/2018 6:10:29 PM Referred By: Confirmed By:CHICO CARDENAS MD
[2018-09-05 18:31] LABS: URINE APPEARANCE CLEAR; URINE BILIRUBIN NEGATIVE (<2.0 mg/dL); URINE COLOR YELLOW; URINE GLUCOSE (UA) NEGATIVE (NEGATIVE); URINE KETONE NEGATIVE (NEGATIVE); URINE LEUK ESTERASE NEGATIVE (NEGATIVE); URINE NITRITE NEGATIVE (NEGATIVE); URINE PROTEIN NEGATIVE (NEGATIVE); URINE UROBILINOGEN 4.0 E.U/dl mg/dL (0.2-1.0)
--- NOTE | 2018-09-05 21:57 | CONSULT ---
Consult - text type - Consultation Consultation Note: NEUROLOGY CONSULTATION is greatly appreciated: Events reviewed and patient examined. Discussed with her son, Jefferson Ugarte at the bedside. This 73 yo RH woman lives alone in a Srs building. PMH sig for HTN, Chol, CHF and cirrhosis. Maintained on: Metoprolol 100 mg PO; Torsemide 10 mg PO; and Spironolactone. Her son relates at least 1 year history of progressive decline in cognition and gait, particlarly after the of her daughter 1 year ago. Son relates she is even unsteady with her walker and has fallen in the past. This AM was found on the floor of her living room after she was unable to open the door for her health aide. (Health Aide is new x 1 week). Patient was in her pajamas but cannot recall any of the events surrounding this morning's events. Denies headache. In the ER, CT of head (reviewed) shows moderate atrophy and scattered microvascular changes. Mild elevated LFT's. UA normal. EXAM: No head trauma. No bruits. II/ QUINCY. 2-3 + pretibial edema. NEURO: Awake, alert, cooperative. [facility]. Scott. No year. + Trump. No reversals. Recalls 1 of 3 at 3 mins. + Glabella. Speech fluent. CN: Marked diminished vision. Possible left visual field deficit. Remaionder CN II-XII normal Motor: No drift. + Asterixis/myoclonus. Normal strength. Brisk reflexes except AJ's. Plantars downgoing. Coord: No FTN dystaxia Sensory: Reduced vibration both feet to the ankles. Gait: Not tested. IMP: 1. Moderate, B/L cerebral dysfunction (OMS, chronic features). Early Alzheimer's vs microvascular +/- Psuedodementia/ depression. 2. Chronic gait dysfunction with hyperreflexia suggesting DOPEMAN microvascular +/- cervical myelopathy. 3. Syncope vs simple fall 4. Severe visual impairment, etiology uncertain. SUGGEST: Check B12, TSH, RPR and ammonia level. MRI of brain and Cervical spine (both C-) Mobilize OO bed to chair and check orthostatic BP's PT for gait with walker and out patient rehab in SNF for gait stabilization. Pt will likely require increased supervision to return to her apartment. Cardiology consultation If cardiac work-up is unremarkable would begin Donepezil 5 mg PO q AM before D/C. Ophthalmology consultation. Thank you very much, Gsu Gonzalez MD
[2018-09-06 06:28] LABS: HEMATOCRIT 27.8 % (32.4-45.2); HEMOGLOBIN 9.4 GM/dL (10.7-15.3); MCH 29.7 pg (25.7-33.7); MCHC 33.9 g/dl (32.0-36.0); MEAN CELL VOLUME 87.4 fl (80-96); PLATELET COUNT 64 K/MM3 (134-434); RBC 3.18 M/mm3 (3.60-5.2); RDW 15.9 % (11.6-15.6); WHITE BLOOD COUNT 4.7 K/mm3 (4.0-10.0)
[2018-09-06 07:10] LABS: ALK PHOS 129 U/L (45-117); ANION GAP 2 MMOL/L (8-16); BILIRUBIN,TOTAL 1.4 mg/dL (0.2-1); BLOOD UREA NITROGEN 15 mg/dL (7-18); CALCIUM 8.3 mg/dL (8.5-10.1); CHLORIDE 110 mmol/L (98-107); CO2 27 mmol/L (21-32); CREATININE 0.7 mg/dL (0.55-1.3); GLUCOSE,RANDOM 87 mg/dL (74-106); POTASSIUM 3.7 mmol/L (3.5-5.1); SGOT/AST 51 U/L (15-37); SGPT/ALT 22 U/L (13-61); SODIUM 140 mmol/L (136-145); TOT PROT 6.3 g/dl (6.4-8.2)
--- NOTE | 2018-09-06 09:25 | PN ---
Progress Note, Physician History of Present Illness: 73 y/o female with past medical history of HTN, HLD, CHF, cirrhosis, venous insufficiency. Patient was found on the ground by her CABLE PLACER this morning. Patient unable to say how she fell. Denies hitting her head and denies LOC. Patient son at bedside said that patient has increased forgetfulness and confusion these past months. Patient denies dizziness, chest pain, palpitations. History Source: Patient, Family Member (Son) - Current Medication List Current Medications: Active Medications Metoprolol Succinate (Toprol Xl -) 100 mg PO DAILY TAMMY Spironolactone (Aldactone -) 25 mg PO DAILY TAMMY Torsemide (Demadex -) 10 mg PO DAILY TAMMY - Objective Vital Signs: Vital Signs Temperature 98.8 F 09/06/18 06:18 Pulse Rate 64 09/06/18 06:18 Respiratory Rate 17 09/06/18 06:18 Blood Pressure 114/57 L 09/06/18 06:18 O2 Sat by Pulse Oximetry (%) 98 09/05/18 20:26 Cardiovascular: Yes: S1, S2 Respiratory: Yes: Regular, CTA Bilaterally Gastrointestinal: Yes: Normal Bowel Sounds, Soft Edema: No Neurological: Yes: Alert, Confusion Labs: CBC, BMP 09/06/18 05:30 09/06/18 05:30 Problem List - Problems (1) Increased ammonia level Assessment/Plan: -Lactulose -Monitor Level -Gi consult Code(s): R79.89 - OTHER SPECIFIED ABNORMAL FINDINGS OF BLOOD CHEMISTRY (2) Fall Assessment/Plan: Physical Therapy -Treat ammonia Code(s): W19.XXXA - UNSPECIFIED FALL, INITIAL ENCOUNTER Qualifiers: Encounter type: initial encounter Qualified Code(s): W19.XXXA - Unspecified fall, initial encounter (3) HTN (hypertension) Assessment/Plan: -Monitor on meds Vital Signs Period Temp Pulse Resp BP Sys/Patel Pulse Ox Last 24 Hr 97.6 F-98.8 F 64-69 13-18 90-134/53-59 98-100 Code(s): I10 - ESSENTIAL (PRIMARY) HYPERTENSION (4) CHF (congestive heart failure) Assessment/Plan: stable on current meds Code(s): I50.9 - HEART FAILURE, UNSPECIFIED (5) Chronic liver disease and cirrhosis Assessment/Plan: -GI consult Code(s): K74.60 - UNSPECIFIED CIRRHOSIS OF LIVER; K76.9 - LIVER DISEASE, UNSPECIFIED
[2018-09-06] MEDS ORDERED: PT OWN MED DRAWER 7, Y5N ONE (09:41)
[2018-09-06] MEDS: SPIRONOLACTONE 25 MG TABLET (FP) PO SCH (09:44)
[2018-09-06] MEDS: TORSEMIDE 10 MG TABLET PO SCH (10:28)
[2018-09-06] MEDS ORDERED: LACTULOSE 20 GM/30 ML UDC (FOR ORAL USE ONLY) PO PRN (10:41)
--- NOTE | 2018-09-06 12:35 | CON.GI ---
Consult Consult Specialty:: Gastroenterology Referred by:: Kelly Jimenez NP Reason for Consultation:: Elevated LFT, hx of cirrhosis - History of Present Illness Chief Complaint: Elevated LFT History of Present Illness: 73 y/o female with PMH of HTN, HLD, HCOM, CHF, cirrhosis, venous insufficiencyadmitted for syncopal episode. I was asked to see patient for elevated LFT and history of cirrhosis. Patient is poor informant. Abdominal US done and noted to have possible thrombus in the portal vein. I was informed of this finding by Dr. Peterson last evening. The son noted her to become more forgetful the past 3 weeks At present no reports of nausea, vomiting, abdominal pain, melena, or rectal bleeding. - History Source History Provided By: Patient - Past Medical History Cardio/Vascular: Yes: CHF, HTN ...: No - Alcohol/Substance Use Hx Alcohol Use: No - Smoking History Smoking history: Never smoked Have you smoked in the past 12 months: No Aproximately how many cigarettes per day: 0 - Social History 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 ([facility]) History of Recent Travel: No Home Medications - Allergies Allergies/Adverse Reactions: Allergies Allergy/AdvReac Type Severity Reaction Status Date / Time No Known Allergies Allergy Verified 06/06/18 10:23 - Home Medications Home Medications: Ambulatory Orders Metoprolol Succinate [Toprol XL -] 100 mg PO DAILY 06/04/18 Torsemide [Demadex] 10 mg PO DAILY 06/04/18 Spironolactone [Aldactone] 25 mg PO DAILY 09/05/18 Review of Systems - Review of Systems Constitutional: reports: No Symptoms Eyes: reports: No Symptoms HENT: reports: No Symptoms Neck: reports: No Symptoms Cardiovascular: reports: No Symptoms Respiratory: reports: No Symptoms Gastrointestinal: reports: No Symptoms Genitourinary: reports: No Symptoms Breasts: reports: No Symptoms Reported Musculoskeletal: reports: No Symptoms Integumentary: reports: No Symptoms Neurological: reports: No Symptoms Endocrine: reports: No Symptoms Hematology/Lymphatic: reports: No Symptoms Psychiatric: reports: No Symptoms Physical Exam-GI Vital Signs: Vital Signs Temperature 98.8 F 09/06/18 06:18 Pulse Rate 64 09/06/18 06:18 Respiratory Rate 16 09/06/18 09:00 Blood Pressure 114/57 L 09/06/18 06:18 O2 Sat by Pulse Oximetry (%) 98 09/06/18 09:00 Constitutional: Yes: Well Nourished, No Distress, Calm Eyes: Yes: Conjunctiva Clear HENT: Yes: Atraumatic Cardiovascular: Yes: Regular Rate and Rhythm Respiratory: Yes: Regular, CTA Bilaterally Gastrointestinal Inspection: Yes: WNL ...Auscultate: Yes: Normoactive Bowel Sounds ...Palpate: Yes: Soft Labs: CBC, BMP 09/06/18 05:30 09/06/18 05:30 Hepatic Panel Total Bilirubin 1.4 mg/dL (0.2-1) H 09/06/18 05:30 AST 51 U/L (15-37) H 09/06/18 05:30 ALT 22 U/L (13-61) 09/06/18 05:30 Alkaline Phosphatase 129 U/L (45-117) H 09/06/18 05:30 Albumin 2.0 g/dl (3.4-5.0) L 09/06/18 05:30 Problem List - Problems (1) Anemia Assessment/Plan: -Stool guaiac od x3 - Code(s): D64.9 - ANEMIA, UNSPECIFIED (2) Hepatic encephalopathy Assessment/Plan: R> Xifaxan 550mg bid lactulose 30cc at bedtime Code(s): K72.90 - HEPATIC FAILURE, UNSPECIFIED WITHOUT COMA (3) Cryptogenic cirrhosis Assessment/Plan: R> hepatitis profile anti smooth muscle ab LIZETH, AMA EGD to rule out varice when medically cleared Code(s): K74.69 - OTHER CIRRHOSIS OF LIVER (4) Portal vein thrombosis Assessment/Plan: secondary to cirrhosis vs hypercoaguable state R> hematology consult will avoid coumadin at this as patient has no abdominal pain, will consider anticoagulation in acute thrombosis Code(s): I81 - PORTAL VEIN THROMBOSIS
--- NOTE | 2018-09-06 16:21 | CON.CARD ---
Consult Consult Specialty:: Cardiology - History of Present Illness Chief Complaint: Found on floor History of Present Illness: This is a 73 year old female with a PMH of HTN, HLD, cirrhosis, and a partial portal vein thrombosis (US this admission). She was found on the floor by her SKID WRAPPER, unclear if LOC. Echo 09/05/18 EF 65% normal LV function. - Past Medical History Cardio/Vascular: Yes: CHF, HTN ...: No - Alcohol/Substance Use Hx Alcohol Use: No - Smoking History Smoking history: Never smoked Have you smoked in the past 12 months: No Aproximately how many cigarettes per day: 0 - Social History 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 (SKID WRAPPER) History of Recent Travel: No Home Medications - Allergies Allergies/Adverse Reactions: Allergies Allergy/AdvReac Type Severity Reaction Status Date / Time No Known Allergies Allergy Verified 06/06/18 10:23 - Home Medications Home Medications: Ambulatory Orders Metoprolol Succinate [Toprol XL -] 100 mg PO DAILY 06/04/18 Torsemide [Demadex] 10 mg PO DAILY 06/04/18 Spironolactone [Aldactone] 25 mg PO DAILY 09/05/18 Vital Signs: Vital Signs Temperature 98.6 F 09/06/18 14:00 Pulse Rate 66 09/06/18 14:00 Respiratory Rate 17 09/06/18 14:00 Blood Pressure 103/88 09/06/18 14:00 O2 Sat by Pulse Oximetry (%) 98 09/06/18 09:00 Constitutional: Yes: No Distress Eyes: Yes: WNL HENT: Yes: WNL Neck: Yes: WNL Respiratory: Yes: CTA Bilaterally Gastrointestinal: Yes: Soft Cardiovascular: Yes: Regular Rate and Rhythm (No MRHG) Extremities: Yes: WNL Edema: LLE: Trace, RLE: Trace Neurological: Yes: Confusion (Depression) - Other Data Labs, Other Data: CBC, BMP 09/06/18 05:30 09/06/18 05:30 Troponin, BNP 09/06/18 09/06/18 05:30 05:30 Troponin I 0.05 Cancelled Troponin, BNP 09/06/18 09/06/18 05:30 05:30 Troponin I 0.05 Cancelled Assessment/Plan 73 year old female with a PMH of HTN, HLD, cirrhosis, and a partial portal vein thrombosis (US this admission). She was found on the floor by her SKID WRAPPER, unclear if LOC. Echo 09/05/18 EF 65% normal LV function. EKG NSR with NSSTTW changes Found on Floor No evidence for syncope Echo/EKG/Trop all unremarkable Neuro eval in progress Call us PRN
--- NOTE | 2018-09-06 17:05 | CONSULT ---
Consult Consult Specialty:: Hemonc Referred by:: Dr. montes Reason for Consultation:: portal vein thrombosis - History of Present Illness History of Present Illness: 73 yo F h/o dementia, HTN, HLD, CHF, venous insufficiency and liver cirrhosis admitted to the hospital for elevated ammonia level and fall, now being evaluated for portal vein thrombosis, which was shown on abd sono. She denies any bleeding, fever, chills, cough, abd pain. 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 denies: Chills, Fever Cardiovascular: denies: Chest Pain, Shortness of Breath Respiratory: denies: SOB Gastrointestinal: denies: Abdominal Pain Neurological: reports: Change in Speech, Confusion, Syncope Physical Exam Vital Signs: Vital Signs Temperature 98.6 F 09/06/18 14:00 Pulse Rate 66 09/06/18 14:00 Respiratory Rate 17 09/06/18 14:00 Blood Pressure 103/88 09/06/18 14:00 O2 Sat by Pulse Oximetry (%) 98 09/06/18 09:00 Constitutional: Yes: No Distress, Calm Eyes: Yes: Conjunctiva Clear, EOM Intact HENT: Yes: Atraumatic, Normocephalic Cardiovascular: Yes: Regular Rate and Rhythm, S1, S2. No: Murmur Respiratory: Yes: CTA Bilaterally Gastrointestinal: Yes: Normal Bowel Sounds, Soft. No: Tenderness Breast(s): No: Discharge from Nipple, Mass, Skin Changes Edema: No Neurological: Yes: Alert, Oriented (only to place), Confusion, Dysarthria, Facial Droop, Weakness (3/5 strength in b/l UE, 4/5 RLE, 2/5 LLE) Labs: CBC, BMP 09/06/18 05:30 09/06/18 05:30 Assessment/Plan 73 yo F h/o dementia, HTN, HLD, CHF, venous insufficiency and liver cirrhosis admitted to the hospital for syncope workup s/p fall with finding of portal vein thrombosis on abd sono. Portal vein thrombosis - hypercoagulable workup - patient will need EDG to r/o esophageal varice in order to be on AC - lovenox will be the choice for AC Anemia and thrombocytopenia - 2/2 decreased liver synthetic function and splenomegaly - correct only when concern for clinical bleeding or invasive procedure Chuy Rivas PGY3 Visit type - Emergency Visit Emergency Visit: No - New Patient This patient is new to me today: Yes Date on this admission: 09/07/18 - Critical Care Critical Care patient: No
[2018-09-06] MEDS: RIFAXIMIN 550 MG TABLET (UD) PO SCH (21:09)
[2018-09-06] MEDS: LACTULOSE 20 GM/30 ML UDC (FOR ORAL USE ONLY) PO SCH (21:09)
[2018-09-07 06:32] LABS: BASO % 0.7 % (0-2.0); EOS % 2.4 % (0-4.5); HEMATOCRIT 27.9 % (32.4-45.2); HEMOGLOBIN 9.4 GM/dL (10.7-15.3); LYMPH % 17.7 % (8-40); MCH 29.7 pg (25.7-33.7); MCHC 33.8 g/dl (32.0-36.0); MEAN CELL VOLUME 87.9 fl (80-96); MEAN PLT VOLUME 10.8 fl (7.5-11.1); MONO % 12.3 % (3.8-10.2); NEUT % 66.9 % (42.8-82.8); PLATELET COUNT 67 K/MM3 (134-434); RBC 3.17 M/mm3 (3.60-5.2); RDW 16.3 % (11.6-15.6); WHITE BLOOD COUNT 5.5 K/mm3 (4.0-10.0)
--- NOTE | 2018-09-07 07:35 | PN ---
Teaching Attending Note Name of Resident: Chuy Rivas ATTENDING PHYSICIAN STATEMENT I saw and evaluated the patient. I reviewed the resident's note and discussed the case with the resident. I agree with the resident's findings and plan as documented. SUBJECTIVE: Patient seen and examined 73 yo F h/o dementia, HTN, HLD, CHF, venous insufficiency and liver cirrhosis admitted to the hospital for syncope workup s/p fall with finding of portal vein thrombosis on abd sono. Last Vital Signs Temp Pulse Resp BP Pulse Ox 98.9 F 75 18 116/98 99 09/07/18 06:00 09/07/18 06:00 09/07/18 06:00 09/07/18 06:00 09/06/18 20:58 HEENT: EMIR, EOM Intact Oropharynx: No thrush, No mucositis Neck: Supple Nodes: Without adenopathy Breasts: Without masses,pendulous Cor: RSR, No murmurs, No gallops Lungs: Clear to P&A Abd: Soft, Normal bowel sounds, No organomegaly Ext:No significant edema Skin: No rashes, Integument intact CBC, BMP 09/07/18 05:30 Current Medications Generic Name Dose Route Start Last Admin Trade Name Freq PRN Reason Stop Dose Admin Lactulose 20 gm 09/06/18 22:00 09/06/18 21:09 Cephulac (Oral Use) PO 20 gm HS TAMMY Administration Metoprolol Succinate 100 mg 09/06/18 10:00 09/06/18 09:44 Toprol Xl - PO 100 mg DAILY TAMMY Administration Rifaximin 550 mg 09/06/18 22:00 09/06/18 21:09 Xifaxan - PO 550 mg BID TAMMY Administration Spironolactone 25 mg 09/06/18 10:00 09/06/18 09:44 Aldactone - PO 25 mg DAILY TAMMY Administration Torsemide 10 mg 09/06/18 10:00 09/06/18 10:28 Demadex - PO 10 mg DAILY TAMMY Administration Impression: Incidental finding of portal vein thrombosis on abdominal sono in a patient with cirrhosis ,splenomegaly, anemia, thrombocytopenia, elevated ammonia, HBP, dementia, and CHF. The [employer] suggest no therapy in an incidental finding of PVT which is not extensive in a cirrhotic patient. Other Liver Groups however do suggest anticoagulation with LMWH the preferred anticoagulant in cirrhotic patients with PVT. Coagulation specialists have suggested reducing dose of LMWH in patients with thrombocytopenia. Studies do suggest increase rate of canalization of vessels with a/c. However, PVT is associated with an increased risk of varices, both esophageal and gastric and it is recommended that evaluation for same is necessary before a decision about LMWH. TIPS has also been performed , but less favored than a/ c. In this patient with dementia will need to access capabilities once NH3 level is improved and mental status is baseline. OBJECTIVE: ASSESSMENT AND PLAN:
[2018-09-07 08:06] LABS: ALK PHOS 99 U/L (45-117); ANION GAP 7 MMOL/L (8-16); BILIRUBIN,TOTAL 2.7 mg/dL (0.2-1); BLOOD UREA NITROGEN 13 mg/dL (7-18); CALCIUM 8.1 mg/dL (8.5-10.1); CHLORIDE 108 mmol/L (98-107); CO2 27 mmol/L (21-32); CREATININE 0.7 mg/dL (0.55-1.3); GLUCOSE,RANDOM 88 mg/dL (74-106); POTASSIUM 3.6 mmol/L (3.5-5.1); SGOT/AST 58 U/L (15-37); SGPT/ALT 23 U/L (13-61); SODIUM 142 mmol/L (136-145); TOT PROT 6.3 g/dl (6.4-8.2)
[2018-09-07] MEDS: RIFAXIMIN 550 MG TABLET (UD) PO SCH (10:00)
[2018-09-07] MEDS: SPIRONOLACTONE 25 MG TABLET (FP) PO SCH (10:00)
[2018-09-07] MEDS: TORSEMIDE 10 MG TABLET PO SCH (10:00)
--- NOTE | 2018-09-07 11:49 | PN ---
Progress Note, Physician Chief Complaint: patient seen and examined in icu code christopher was called bc noted to have changes in speech patient went down to ct scan no acute changes noted - Current Medication List Current Medications: Active Medications Lactulose (Cephulac (Oral Use)) 20 gm PO HS [facility] Last Admin: 09/06/18 21:09 Dose: 20 gm Metoprolol Succinate (Toprol Xl -) 100 mg PO DAILY [facility] Last Admin: 09/06/18 09:44 Dose: 100 mg Rifaximin (Xifaxan -) 550 mg PO BID [facility] Last Admin: 09/06/18 21:09 Dose: 550 mg Spironolactone (Aldactone -) 25 mg PO DAILY [facility] Last Admin: 09/06/18 09:44 Dose: 25 mg Torsemide (Demadex -) 10 mg PO DAILY [facility] Last Admin: 09/06/18 10:28 Dose: 10 mg - Objective Vital Signs: Vital Signs Temperature 98.9 F 09/07/18 06:00 Pulse Rate 75 09/07/18 06:00 Respiratory Rate 18 09/07/18 06:00 Blood Pressure 116/98 09/07/18 06:00 O2 Sat by Pulse Oximetry (%) 99 09/07/18 09:00 Constitutional: Yes: Calm Cardiovascular: Yes: Regular Rate and Rhythm, S1, S2 Respiratory: Yes: CTA Bilaterally Gastrointestinal: Yes: Normal Bowel Sounds, Soft Edema: No Neurological: Yes: Alert, Oriented (to name), Other (able to raise both her upper and lower extremities, patient was slow to answer questions) Labs: CBC, BMP 09/07/18 05:30 09/07/18 05:30 Problem List - Problems (1) Fall Assessment/Plan: PT eval cardiology work up negative start donezipil Code(s): W19.XXXA - UNSPECIFIED FALL, INITIAL ENCOUNTER Qualifiers: Encounter type: initial encounter Qualified Code(s): W19.XXXA - Unspecified fall, initial encounter (2) Increased ammonia level Assessment/Plan: 169 to 116 today lactulose daily monitor ammonia level us show hepatic cirrhosis and partial thrombosis of main portal vein Code(s): R79.89 - OTHER SPECIFIED ABNORMAL FINDINGS OF BLOOD CHEMISTRY (3) Portal vein thrombosis Assessment/Plan: appreciate heme eval Code(s): I81 - PORTAL VEIN THROMBOSIS (4) Cryptogenic cirrhosis Assessment/Plan: rifaximin GI on board aldactone Code(s): K74.69 - OTHER CIRRHOSIS OF LIVER
[2018-09-07 12:57] LABS: INR 1.4 (0.83-1.09); PROTHROMBIN TIME (PATIENT) 16.6 SEC (9.7-13.0)
--- NOTE | 2018-09-07 12:59 | RAPID ---
Physical Examination Vital Signs: Vital Signs Temperature 98.9 F 09/07/18 06:00 Pulse Rate 75 09/07/18 06:00 Respiratory Rate 18 09/07/18 06:00 Blood Pressure 116/98 09/07/18 06:00 O2 Sat by Pulse Oximetry (%) 99 09/07/18 09:00 Labs: CBC, BMP 09/07/18 05:30 09/07/18 05:30 Rapid Response - Rapid Response Assessment: Radha Modi called at 10:48. Pt was noted to have a new onset left sided facial droop and minimal new left arm weakness. On exam, pt appeared to be confused was having difficulty word finding Unable to assess orientation Heart regular rate and rythm, holosystolic murmur Decreased air entry throughout, no crackles or wheezes Abdomen soft nontender Neuro: left sided facial weakness noted on smiling, CN II-XII otherwise in tact , sensation in tact throughout, mild drift of LUE, 4/5 strength. NIH stroke scale: 5 Primary in attendence and aware. Primary discussed case with neurology. CT Head ordered Suspected CVA - Suspected CVA Exam Time (Radha Everett Time): 10:48 CT Stroke ordered: Yes Stat "Radha Everett" Consult to Neurology called: Yes Last Known Well (Date): 09/07/18 Last Known Well (Time): 09:30 Symptom Discovery (Date): 09/07/18 Symptom Discovery (Time): 10:47
[2018-09-07 13:00] LABS: ACTIVATED PTT 39.9 SECONDS (25.2-36.5)
--- NOTE | 2018-09-07 13:20 | CON.PULM ---
Consult Consult Specialty:: PULM/CCM Referred by:: NIMA Reason for Consultation:: CHF - History of Present Illness Chief Complaint: AMS History of Present Illness: 73 F, HTN, HLD, HCOM, CHF, cirrhosis, and venous insufficiency. Admitted via the ER due to AMS and a possible syncopal episode. She is currently confused and not able to provide an appropriate history. She is currently not able to report SOB, SHOOK, cough, CP, etc. CT Head in stroke protocol was performed and revealed no acute process. 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) History of Recent Travel: No Home Medications - Allergies Allergies/Adverse Reactions: Allergies Allergy/AdvReac Type Severity Reaction Status Date / Time No Known Allergies Allergy Verified 06/06/18 10:23 - Home Medications Home Medications: Ambulatory Orders Metoprolol Succinate [Toprol XL -] 100 mg PO DAILY 06/04/18 Torsemide [Demadex] 10 mg PO DAILY 06/04/18 Spironolactone [Aldactone] 25 mg PO DAILY 09/05/18 Review of Systems Unable to obtain ROS, reason: unable to provide Physical Exam Vital Sings: Vital Signs Temperature 98.9 F 09/07/18 06:00 Pulse Rate 75 09/07/18 06:00 Respiratory Rate 18 09/07/18 06:00 Blood Pressure 116/98 09/07/18 06:00 O2 Sat by Pulse Oximetry (%) 99 09/07/18 09:00 Constitutional: Yes: Obese, Other (Confused ) Eyes: Yes: Conjunctiva Clear, PERRL. No: Sclera Icterus HENT: Yes: Atraumatic, Normocephalic Neck: Yes: Supple, Trachea Midline Cardiovascular: Yes: Regular Rate and Rhythm Respiratory: Yes: Diminished, On Nasal O2, Rhonchi. No: Accessory Muscle Use, Wheezes ...Clubbing: No Gastrointestinal: Yes: Normal Bowel Sounds, Soft, Abdomen, Obese Renal/: Yes: WNL Musculoskeletal: Yes: WNL Extremities: Yes: WNL Edema: No Peripheral Pulses WNL: Yes Integumentary: Yes: WNL Neurological: Yes: Confusion, Lethargy Psychiatric: Yes: Other (confused ) Labs: CBC, BMP 09/07/18 05:30 09/07/18 05:30 Imaging - Results Chest X-ray: Report Reviewed, Image Reviewed Cat Scan: Report Reviewed, Image Reviewed Problem List - Problems (1) Anemia Code(s): D64.9 - ANEMIA, UNSPECIFIED (2) Failure to thrive Code(s): XXE4522 - Qualifiers: Failure to thrive age range: in adult Qualified Code(s): R62.7 - Adult failure to thrive (3) Fall Code(s): W19.XXXA - UNSPECIFIED FALL, INITIAL ENCOUNTER Qualifiers: Encounter type: initial encounter Qualified Code(s): W19.XXXA - Unspecified fall, initial encounter (4) HTN (hypertension) Code(s): I10 - ESSENTIAL (PRIMARY) HYPERTENSION (5) Hepatic encephalopathy Code(s): K72.90 - HEPATIC FAILURE, UNSPECIFIED WITHOUT COMA (6) Increased ammonia level Code(s): R79.89 - OTHER SPECIFIED ABNORMAL FINDINGS OF BLOOD CHEMISTRY (7) Portal vein thrombosis Code(s): I81 - PORTAL VEIN THROMBOSIS (8) Ascites Code(s): R18.8 - OTHER ASCITES Qualifiers: Ascites type: other type Qualified Code(s): R18.8 - Other ascites (9) CHF (congestive heart failure) Code(s): I50.9 - HEART FAILURE, UNSPECIFIED (10) Chronic liver disease and cirrhosis Code(s): K74.60 - UNSPECIFIED CIRRHOSIS OF LIVER; K76.9 - LIVER DISEASE, UNSPECIFIED (11) Thrombocytopenia Code(s): D69.6 - THROMBOCYTOPENIA, UNSPECIFIED (12) Toxic metabolic encephalopathy Code(s): G92 - TOXIC ENCEPHALOPATHY Assessment/Plan Follow Neuro exam Aspiration precautions O2 as needed Do not suspect Decompensated CHF at this time Brown-culture Lactulose ID evaluation Rifaximin Empiric dose of Rocephin ordered Neurology evaluation Will follow Thank you. Dr Bauman
[2018-09-07] MEDS ORDERED: ACETAMINOPHEN 325 MG TABLET (FP) PO PRN (13:47)
[2018-09-07] MEDS ORDERED: CEFTRIAXONE 1 GM in DEXTROSE 5%-WATER - 100 ML IVPB ONE (13:51)
[2018-09-07] MEDS ORDERED: CEFTRIAXONE 1 GM in DEXTROSE 5%-WATER - 50 ML IVPB ONE (14:15)
[2018-09-07 14:34] VITALS: BMI 37.8
--- NOTE | 2018-09-07 16:21 | PN ---
Progress Note (short form) - Note Progress Note: ID CONSULT DICTATED FEVER ? SOURCE ? SEPTIC PORTAL VEIN THROMBOSIS ? SBP ? ASPIRATION AWAIT C/S EMPIRIC CEFTRIAXONE + STAT DOSE VANCOMYCIN
[2018-09-07] MEDS ORDERED: VANCOMYCIN 1 GRAM (PRE-DOCKED) 1,000 MG/250 ML BAG IVPB ONE (16:27)
--- NOTE | 2018-09-07 16:46 | CONS ---
INFECTIOUS DISEASE CONSULTATION DATE OF CONSULTATION: DATE OF DICTATION: 09/07/2018 The patient is a 73-year-old female with a history of cirrhosis, evaluated for fever. History was obtained from the chart. According to the family, the patient has had a progressive functional decline over the past several months with increasing confusion. She was admitted to the hospital on September 05, 2018, after falling at home. She was found on the floor. She was evaluated in the emergency room where CAT scan of the head was negative. She was noted to have an elevated ammonia level. A sonogram of the abdomen was performed and showed ascites as well as a partial thrombosis of the main portal vein. At the present time, she is awake, but she is confused. She offers no complaints. She denies any pain. No reports of shaking chills, labored breathing, cough, sputum production, vomiting, diarrhea, or grossly purulent urine. PAST MEDICAL HISTORY: Positive for hypertension, hyperlipidemia, congestive heart failure, cirrhosis. ALLERGIES: No known allergies. MEDICATIONS: Toprol, Demadex, Aldactone. SOCIAL HISTORY: She lives at home, has a home health aide. Nonsmoker, nondrinker. SYSTEMS REVIEW: Neurologic: As per HPI. Cardiac: Negative chest pain or palpitations. Respiratory: Negative cough or sputum production. Gastrointestinal: As per HPI. Genitourinary: Negative for urinary tract infection. LABORATORY DATA: White count 5.5, hematocrit 27.9, platelet count 67. Creatinine 0.7. Ammonia level 169. Urinalysis: Negative leukocyte esterase. Blood cultures and urine cultures pending. Chest x-ray: Negative for acute infiltrate. PHYSICAL EXAMINATION: General: The patient is awake but confused. Vital Signs: Temperature 101; blood pressure 102/71; pulse 76, regular; respirations 18 per minute. HEENT: Sclerae anicteric. Heart: Sounds S1, S2. Lungs: Poor inspiratory effort, grossly clear. Abdomen: Distended, is soft. No tenderness elicited. Extremities: Edema 1+. IMPRESSION: Fever in this elderly patient with cirrhosis and worsening dementia, status post possible syncopal episode. 1. Possible aspiration pneumonia. 2. Rule out septic thrombosis of the portal vein. 3. Rule out spontaneous bacterial peritonitis. Await blood cultures. We will repeat urine culture and chest x-ray. Empiric antibiotic coverage with ceftriaxone plus stat dose vancomycin. Aspiration precautions. Will follow. Thank you for the kind referral. JIM LOPEZ M.D. [id number]
[2018-09-07] MEDS: CEFTRIAXONE 1 GM in DEXTROSE 5%-WATER 100 ML IVPB SCH (17:03)
[2018-09-07 22:13] LABS: HEP B CORE AB, IGM Negative (Negative); HEP B CORE AB, TOT Negative (Negative)
[2018-09-08] MEDS: LACTULOSE 20 GM/30 ML UDC (FOR ORAL USE ONLY) PO SCH ×2 (00:46→23:35)
[2018-09-08] MEDS: RIFAXIMIN 550 MG TABLET (UD) PO SCH ×3 (01:15→23:35)
[2018-09-08 07:00] LABS: BASO % 0.5 % (0-2.0); EOS % 1.8 % (0-4.5); HEMOGLOBIN 9.9 GM/dL (10.7-15.3); LYMPH % 20.3 % (8-40); MCH 29.2 pg (25.7-33.7); MCHC 32.9 g/dl (32.0-36.0); MEAN CELL VOLUME 88.5 fl (80-96); MEAN PLT VOLUME 10.2 fl (7.5-11.1); MONO % 11.8 % (3.8-10.2); NEUT % 65.6 % (42.8-82.8); PLATELET COUNT 67 K/MM3 (134-434); RBC 3.39 M/mm3 (3.60-5.2); RDW 15.8 % (11.6-15.6); WHITE BLOOD COUNT 10.9 K/mm3 (4.0-10.0)
[2018-09-08 07:25] LABS: ALK PHOS 92 U/L (45-117); ANION GAP 9 MMOL/L (8-16); BILIRUBIN,TOTAL 2.5 mg/dL (0.2-1); BLOOD UREA NITROGEN 16 mg/dL (7-18); CALCIUM 7.8 mg/dL (8.5-10.1); CHLORIDE 107 mmol/L (98-107); CO2 25 mmol/L (21-32); GLUCOSE,RANDOM 85 mg/dL (74-106); POTASSIUM 3.5 mmol/L (3.5-5.1); SGOT/AST 49 U/L (15-37); SGPT/ALT 26 U/L (13-61); SODIUM 141 mmol/L (136-145); TOT PROT 6.6 g/dl (6.4-8.2)
[2018-09-08] MEDS ORDERED: DEXTROSE 5%-WATER 100 ML IVPB ONE (09:34)
[2018-09-08] MEDS ORDERED: cefTRIAXone SODIUM 1 GM VIAL ONE (09:34)
[2018-09-08] MEDS: CEFTRIAXONE 1 GM in DEXTROSE 5%-WATER 100 ML IVPB SCH (09:39)
[2018-09-08] MEDS: TORSEMIDE 10 MG TABLET PO SCH (09:40)
[2018-09-08] MEDS ORDERED: SPIRONOLACTONE 25 MG TABLET (FP) PO SCH (10:00)
--- NOTE | 2018-09-08 10:15 | PN ---
GI Progress Note Subjective: patient seen in the ICU last night, orientd to person only and not to time and place - Objective Vital Signs: Vital Signs Temperature 98.4 F 09/08/18 08:51 Pulse Rate 77 09/08/18 09:32 Respiratory Rate 18 09/08/18 08:51 Blood Pressure 90/47 L 09/08/18 09:32 O2 Sat by Pulse Oximetry (%) 99 09/08/18 02:30 Constitutional: Obese Eyes: Yes: Conjunctiva Clear HENT: Yes: Atraumatic Neck: Yes: Supple Cardiovascular: Yes: Regular Rate and Rhythm Respiratory: Yes: CTA Bilaterally ...Palpate: Yes: Soft. No: Firm/Rigid, Guarding, Hepatomegaly, Mass, Pulsatile Mass, Splenomegaly, Tenderness, Tenderness, Epigastium Labs: CBC, BMP 09/08/18 06:00 09/08/18 06:00 INR, PTT INR 1.40 (0.83-1.09) H 09/07/18 12:07 Problem List - Problems (1) Anemia Code(s): D64.9 - ANEMIA, UNSPECIFIED (2) Hepatic encephalopathy Assessment/Plan: mild R> continue Xifaxan 550mg bid Code(s): K72.90 - HEPATIC FAILURE, UNSPECIFIED WITHOUT COMA (3) Cryptogenic cirrhosis Code(s): K74.69 - OTHER CIRRHOSIS OF LIVER (4) Portal vein thrombosis Assessment/Plan: no need for anticoagulation at this time Code(s): I81 - PORTAL VEIN THROMBOSIS
--- NOTE | 2018-09-08 10:52 | PN ---
Progress Note, Physician Chief Complaint: patient awake today looks more alert had temp yesterday 101, wbc 10.5 - Current Medication List Current Medications: Active Medications Acetaminophen (Tylenol -) 650 mg PO Q6H PRN PRN Reason: FEVER Ceftriaxone Sodium 1 gm/ (Dextrose) 100 mls @ 200 mls/hr IVPB DAILY [facility]; Protocol Last Admin: 09/08/18 09:39 Dose: 200 mls/hr Lactulose (Cephulac (Oral Use)) 20 gm PO [facility] Metoprolol Succinate (Toprol Xl -) 100 mg PO DAILY [facility] Last Admin: 09/08/18 09:40 Dose: Not Given Rifaximin (Xifaxan -) 550 mg PO BID [facility] Last Admin: 09/08/18 09:39 Dose: 550 mg Spironolactone (Aldactone -) 25 mg PO DAILY [facility] Last Admin: 09/08/18 09:40 Dose: Not Given Torsemide (Demadex -) 10 mg PO DAILY [facility] Last Admin: 09/08/18 09:40 Dose: Not Given - Objective Vital Signs: Vital Signs Temperature 98.4 F 09/08/18 08:51 Pulse Rate 77 09/08/18 09:32 Respiratory Rate 18 09/08/18 08:51 Blood Pressure 90/47 L 09/08/18 09:32 O2 Sat by Pulse Oximetry (%) 99 09/08/18 02:30 Constitutional: Yes: Calm Cardiovascular: Yes: Regular Rate and Rhythm, S1, S2 Respiratory: Yes: CTA Bilaterally, Diminished (at bases) Gastrointestinal: Yes: Normal Bowel Sounds, Soft Edema: Yes (slight ) Neurological: Yes: Alert Labs: CBC, BMP 09/08/18 06:00 09/08/18 06:00 INR, PTT INR 1.40 (0.83-1.09) H 09/07/18 12:07 Problem List - Problems (1) Fever Assessment/Plan: stat dose of vancomycin given on rocephin appreciate ID consult cultures pending Microbiology 09/05/18 18:15 Urine - Urine Clean Catch Urine Culture - Final Contaminated: Please Repeat cxr ordered aspiration precautions Code(s): R50.9 - FEVER, UNSPECIFIED (2) Fall Assessment/Plan: PT eval cardiology work up negative start donezipil neurology follow up Code(s): W19.XXXA - UNSPECIFIED FALL, INITIAL ENCOUNTER Qualifiers: Encounter type: initial encounter Qualified Code(s): W19.XXXA - Unspecified fall, initial encounter (3) Increased ammonia level Assessment/Plan: 169 to 116 today is 63.95 lactulose daily monitor ammonia level us show hepatic cirrhosis and partial thrombosis of main portal vein- GI follow up appreciate no need for AC at this time Code(s): R79.89 - OTHER SPECIFIED ABNORMAL FINDINGS OF BLOOD CHEMISTRY (4) Portal vein thrombosis Assessment/Plan: appreciate heme eval Code(s): I81 - PORTAL VEIN THROMBOSIS (5) Cryptogenic cirrhosis Assessment/Plan: rifaximin GI on board aldactone, torsemide Code(s): K74.69 - OTHER CIRRHOSIS OF LIVER (6) HTN (hypertension) Assessment/Plan: low BP so metoprolol and aldactone held Code(s): I10 - ESSENTIAL (PRIMARY) HYPERTENSION
--- NOTE | 2018-09-08 13:48 | PN ---
Progress Note, Physician History of Present Illness: PULMONARY ALERT,NO DISTRESS,-SOB - Current Medication List Current Medications: Active Medications Acetaminophen (Tylenol -) 650 mg PO Q6H PRN PRN Reason: FEVER Ceftriaxone Sodium 1 gm/ (Dextrose) 100 mls @ 200 mls/hr IVPB DAILY [facility]; Protocol Last Admin: 09/08/18 09:39 Dose: 200 mls/hr Lactulose (Cephulac (Oral Use)) 20 gm PO HS [facility] Metoprolol Succinate (Toprol Xl -) 100 mg PO DAILY [facility] Rifaximin (Xifaxan -) 550 mg PO BID [facility] Last Admin: 09/08/18 09:39 Dose: 550 mg Spironolactone (Aldactone -) 25 mg PO DAILY [facility] Torsemide (Demadex -) 10 mg PO DAILY [facility] Last Admin: 09/08/18 09:40 Dose: Not Given - Objective Vital Signs: Vital Signs Temperature 98.4 F 09/08/18 08:51 Pulse Rate 77 09/08/18 09:32 Respiratory Rate 18 09/08/18 08:51 Blood Pressure 90/47 L 09/08/18 09:32 O2 Sat by Pulse Oximetry (%) 99 09/08/18 02:30 Constitutional: Yes: Well Nourished, Calm Eyes: Yes: WNL HENT: Yes: WNL Neck: Yes: WNL Cardiovascular: Yes: Regular Rate and Rhythm, S1, S2 Respiratory: Yes: Diminished Gastrointestinal: Yes: Normal Bowel Sounds, Soft Extremities: Yes: WNL Edema: Yes Labs: CBC, BMP 09/08/18 06:00 09/08/18 06:00 INR, PTT INR 1.40 (0.83-1.09) H 09/07/18 12:07 Assessment/Plan [facility] *LIVE* Consultation-Pulmonary Patient Name: FRANSISCO BURDEN Date of : 1945 Patient Status: Inpatient Attending Provider: Kim Pate Date: 09/07/18 13:10 Initialization Date: 09/07/18 13:10 Consult Consult Specialty:: PULM/CCM Referred by:: PMD Reason for Consultation:: CHF - History of Present Illness Chief Complaint: AMS History of Present Illness: 73 F, HTN, HLD, HCOM, CHF, cirrhosis, and venous insufficiency. Admitted via the ER due to AMS and a possible syncopal episode. She is currently confused and not able to provide an appropriate history. She is currently not able to report SOB, SHOOK, cough, CP, etc. CT Head in stroke protocol was performed and revealed no acute process. 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 Travel: No Home Medications - Allergies Allergies/Adverse Reactions: Allergies Allergy/AdvReac Type Severity Reaction Status Date / Time No Known Allergies Allergy Verified 06/06/18 10:23 - Home Medications Home Medications: Ambulatory Orders Metoprolol Succinate [Toprol XL -] 100 mg PO DAILY 06/04/18 Torsemide [Demadex] 10 mg PO DAILY 06/04/18 Spironolactone [Aldactone] 25 mg PO DAILY 09/05/18 Review of Systems Unable to obtain ROS, reason: unable to provide Physical Exam Vital Sings: Vital Signs Temperature 98.9 F 09/07/18 06:00 Pulse Rate 75 09/07/18 06:00 Respiratory Rate 18 09/07/18 06:00 Blood Pressure 116/98 09/07/18 06:00 O2 Sat by Pulse Oximetry (%) 99 09/07/18 09:00 Constitutional: Yes: Obese, Other (Confused ) Eyes: Yes: Conjunctiva Clear, PERRL. No: Sclera Icterus HENT: Yes: Atraumatic, Normocephalic Neck: Yes: Supple, Trachea Midline Cardiovascular: Yes: Regular Rate and Rhythm Respiratory: Yes: Diminished, On Nasal O2, Rhonchi. No: Accessory Muscle Use, Wheezes ...Clubbing: No Gastrointestinal: Yes: Normal Bowel Sounds, Soft, Abdomen, Obese Renal/: Yes: WNL Musculoskeletal: Yes: WNL Extremities: Yes: WNL Edema: No Peripheral Pulses WNL: Yes Integumentary: Yes: WNL Neurological: Yes: Confusion, Lethargy Psychiatric: Yes: Other (confused ) Labs: CBC, BMP 09/07/18 05:30 09/07/18 05:30 Imaging - Results Chest X-ray: Report Reviewed, Image Reviewed Cat Scan: Report Reviewed, Image Reviewed Problem List - Problems (1) Anemia Code(s): D64.9 - ANEMIA, UNSPECIFIED (2) Failure to thrive Code(s): [id number] - Qualifiers: Failure to thrive age range: in adult Qualified Code(s): R62.7 - Adult failure to thrive (3) Fall Code(s): W19.XXXA - UNSPECIFIED FALL, INITIAL ENCOUNTER Qualifiers: Encounter type: initial encounter Qualified Code(s): W19.XXXA - Unspecified fall, initial encounter (4) HTN (hypertension) Code(s): I10 - ESSENTIAL (PRIMARY) HYPERTENSION (5) Hepatic encephalopathy Code(s): K72.90 - HEPATIC FAILURE, UNSPECIFIED WITHOUT COMA (6) Increased ammonia level Code(s): R79.89 - OTHER SPECIFIED ABNORMAL FINDINGS OF BLOOD CHEMISTRY (7) Portal vein thrombosis Code(s): I81 - PORTAL VEIN THROMBOSIS (8) Ascites Code(s): R18.8 - OTHER ASCITES Qualifiers: Ascites type: other type Qualified Code(s): R18.8 - Other ascites (9) CHF (congestive heart failure) Code(s): I50.9 - HEART FAILURE, UNSPECIFIED (10) Chronic liver disease and cirrhosis Code(s): K74.60 - UNSPECIFIED CIRRHOSIS OF LIVER; K76.9 - LIVER DISEASE, UNSPECIFIED (11) Thrombocytopenia Code(s): D69.6 - THROMBOCYTOPENIA, UNSPECIFIED (12) Toxic metabolic encephalopathy Code(s): G92 - TOXIC ENCEPHALOPATHY Assessment/Plan Follow Neuro exam Aspiration precautions O2 as needed Brown-culture Lactulose Rifaximin Abx as per ID DR DOLAN
--- NOTE | 2018-09-08 13:58 | PN ---
Progress Note, Physician History of Present Illness: PULMONARY ALERT,NO DISTRESS,-SOB - Current Medication List Current Medications: Active Medications Acetaminophen (Tylenol -) 650 mg PO Q6H PRN PRN Reason: FEVER Ceftriaxone Sodium 1 gm/ (Dextrose) 100 mls @ 200 mls/hr IVPB DAILY [facility]; Protocol Last Admin: 09/08/18 09:39 Dose: 200 mls/hr Lactulose (Cephulac (Oral Use)) 20 gm PO HS [facility] Metoprolol Succinate (Toprol Xl -) 100 mg PO DAILY [facility] Rifaximin (Xifaxan -) 550 mg PO BID [facility] Last Admin: 09/08/18 09:39 Dose: 550 mg Spironolactone (Aldactone -) 25 mg PO DAILY [facility] Torsemide (Demadex -) 10 mg PO DAILY [facility] Last Admin: 09/08/18 09:40 Dose: Not Given - Objective Vital Signs: Vital Signs Temperature 98.4 F 09/08/18 08:51 Pulse Rate 77 09/08/18 09:32 Respiratory Rate 18 09/08/18 08:51 Blood Pressure 90/47 L 09/08/18 09:32 O2 Sat by Pulse Oximetry (%) 99 09/08/18 02:30 Constitutional: Yes: Well Nourished, Calm Eyes: Yes: WNL HENT: Yes: WNL Neck: Yes: WNL Cardiovascular: Yes: Regular Rate and Rhythm, S1, S2 Respiratory: Yes: Diminished Gastrointestinal: Yes: Normal Bowel Sounds, Soft Extremities: Yes: WNL Edema: Yes Labs: CBC, BMP 09/08/18 06:00 09/08/18 06:00 INR, PTT INR 1.40 (0.83-1.09) H 09/07/18 12:07 Assessment/Plan Problem List - Problems (1) Anemia Code(s): D64.9 - ANEMIA, UNSPECIFIED (2) Failure to thrive Code(s): [id number] - Qualifiers: Failure to thrive age range: in adult Qualified Code(s): R62.7 - Adult failure to thrive (3) Fall Code(s): W19.XXXA - UNSPECIFIED FALL, INITIAL ENCOUNTER Qualifiers: Encounter type: initial encounter Qualified Code(s): W19.XXXA - Unspecified fall, initial encounter (4) HTN (hypertension) Code(s): I10 - ESSENTIAL (PRIMARY) HYPERTENSION (5) Hepatic encephalopathy Code(s): K72.90 - HEPATIC FAILURE, UNSPECIFIED WITHOUT COMA (6) Increased ammonia level Code(s): R79.89 - OTHER SPECIFIED ABNORMAL FINDINGS OF BLOOD CHEMISTRY (7) Portal vein thrombosis Code(s): I81 - PORTAL VEIN THROMBOSIS (8) Ascites Code(s): R18.8 - OTHER ASCITES Qualifiers: Ascites type: other type Qualified Code(s): R18.8 - Other ascites (9) CHF (congestive heart failure) Code(s): I50.9 - HEART FAILURE, UNSPECIFIED (10) Chronic liver disease and cirrhosis Code(s): K74.60 - UNSPECIFIED CIRRHOSIS OF LIVER; K76.9 - LIVER DISEASE, UNSPECIFIED (11) Thrombocytopenia Code(s): D69.6 - THROMBOCYTOPENIA, UNSPECIFIED (12) Toxic metabolic encephalopathy Code(s): G92 - TOXIC ENCEPHALOPATHY Assessment/Plan Follow Neuro exam Aspiration precautions O2 as needed Lactulose ID evaluation Rifaximin Abx as per ID
--- NOTE | 2018-09-08 16:42 | PN ---
Progress Note, Physician History of Present Illness: Patient seen and examined at bedside. Fever per nurse. Looking more awake. - Current Medication List Current Medications: Active Medications Acetaminophen (Tylenol -) 650 mg PO Q6H PRN PRN Reason: FEVER Ceftriaxone Sodium 1 gm/ (Dextrose) 100 mls @ 200 mls/hr IVPB DAILY [facility]; Protocol Last Admin: 09/08/18 09:39 Dose: 200 mls/hr Lactulose (Cephulac (Oral Use)) 20 gm PO HS [facility] Metoprolol Succinate (Toprol Xl -) 100 mg PO DAILY [facility] Rifaximin (Xifaxan -) 550 mg PO BID [facility] Last Admin: 09/08/18 09:39 Dose: 550 mg Spironolactone (Aldactone -) 25 mg PO DAILY [facility] Torsemide (Demadex -) 10 mg PO DAILY [facility] Last Admin: 09/08/18 09:40 Dose: Not Given - Objective Vital Signs: Vital Signs Temperature 97.7 F 09/08/18 14:06 Pulse Rate 79 09/08/18 14:06 Respiratory Rate 18 09/08/18 14:06 Blood Pressure 121/63 09/08/18 14:06 O2 Sat by Pulse Oximetry (%) 99 09/08/18 02:30 Constitutional: Yes: No Distress, Calm Eyes: Yes: Conjunctiva Clear, EOM Intact Cardiovascular: Yes: Regular Rate and Rhythm, S1, S2 Respiratory: Yes: Diminished Gastrointestinal: Yes: Normal Bowel Sounds, Soft. No: Tenderness Edema: No Neurological: Yes: Alert, Oriented Labs: CBC, BMP 09/08/18 06:00 09/08/18 06:00 INR, PTT INR 1.40 (0.83-1.09) H 09/07/18 12:07 Impression/Plan Impression/Plan: 73 yo F h/o dementia, HTN, HLD, CHF, venous insufficiency and liver cirrhosis admitted to the hospital for syncope workup s/p fall with finding of portal vein thrombosis on abd sono. Portal vein thrombosis - hypercoagulable workup pending - no need for AC per GI input Anemia and thrombocytopenia - 2/2 decreased liver synthetic function and splenomegaly - correct only when concern for clinical bleeding or invasive procedure - normal transfusion threshold Thank you for the consult opportunity, pls call back if needed. Chuy Rivas PGY3 Visit type - Emergency Visit Emergency Visit: No - New Patient This patient is new to me today: No - Critical Care Critical Care patient: No - Discharge Referral Referred to [facility] No
--- NOTE | 2018-09-08 16:46 | PN ---
Teaching Attending Note Name of Resident: Chuy Rivas ATTENDING PHYSICIAN STATEMENT I saw and evaluated the patient. I reviewed the resident's note and discussed the case with the resident. I agree with the resident's findings and plan as documented. SUBJECTIVE:Patient seen Nurses report more alert and functional (See prior notes) Per GI - no a/c at this time. OBJECTIVE: ASSESSMENT AND PLAN:
[2018-09-08] MEDS ORDERED: PT OWN MED DRAWER 7, Y5N ONE (23:22)
[2018-09-09 07:39] LABS: BASO % 0.6 % (0-2.0); EOS % 3.1 % (0-4.5); HEMATOCRIT 25.8 % (32.4-45.2); HEMOGLOBIN 8.7 GM/dL (10.7-15.3); LYMPH % 20.2 % (8-40); MCH 29.9 pg (25.7-33.7); MCHC 33.8 g/dl (32.0-36.0); MEAN CELL VOLUME 88.5 fl (80-96); MEAN PLT VOLUME 10.5 fl (7.5-11.1); MONO % 16.6 % (3.8-10.2); NEUT % 59.5 % (42.8-82.8); PLATELET COUNT 56 K/MM3 (134-434); RBC 2.92 M/mm3 (3.60-5.2); RDW 15.8 % (11.6-15.6); WHITE BLOOD COUNT 6.1 K/mm3 (4.0-10.0)
[2018-09-09 07:56] LABS: ALBUMIN 1.9 g/dl (3.4-5.0); ALK PHOS 101 U/L (45-117); ANION GAP 6 MMOL/L (8-16); BILIRUBIN,TOTAL 1.4 mg/dL (0.2-1); BLOOD UREA NITROGEN 14 mg/dL (7-18); CHLORIDE 107 mmol/L (98-107); CO2 28 mmol/L (21-32); CREATININE 0.8 mg/dL (0.55-1.3); GLUCOSE,RANDOM 87 mg/dL (74-106); POTASSIUM 3.5 mmol/L (3.5-5.1); SGOT/AST 40 U/L (15-37); SGPT/ALT 20 U/L (13-61); SODIUM 140 mmol/L (136-145)
[2018-09-09] MEDS ORDERED: DEXTROSE 5%-WATER 100 ML IVPB ONE (10:02)
[2018-09-09] MEDS ORDERED: PT OWN MED DRAWER 7, Y5N ONE (10:02)
[2018-09-09] MEDS ORDERED: cefTRIAXone SODIUM 1 GM VIAL ONE (10:02)
[2018-09-09] MEDS: CEFTRIAXONE 1 GM in DEXTROSE 5%-WATER 100 ML IVPB SCH (10:20)
[2018-09-09] MEDS: SPIRONOLACTONE 25 MG TABLET (FP) PO SCH (10:21)
[2018-09-09] MEDS: RIFAXIMIN 550 MG TABLET (UD) PO SCH ×2 (10:21→21:31)
[2018-09-09] MEDS: TORSEMIDE 10 MG TABLET PO SCH (10:21)
[2018-09-09 12:55] LABS: URINE APPEARANCE SLCLOUDY; URINE BILIRUBIN NEGATIVE (<2.0 mg/dL); URINE COLOR AMBER; URINE GLUCOSE (UA) NEGATIVE (NEGATIVE); URINE KETONE NEGATIVE (NEGATIVE); URINE LEUK ESTERASE NEGATIVE (NEGATIVE); URINE NITRITE NEGATIVE (NEGATIVE); URINE PROTEIN NEGATIVE (NEGATIVE); URINE UROBILINOGEN 4.0 E.U/dl mg/dL (0.2-1.0)
--- NOTE | 2018-09-09 13:32 | PN ---
Progress Note (short form) - Note Progress Note: PULMONARY Denies shortness of breath , cough or wheezing. Vital Signs Period Temp Pulse Resp BP Sys/Patel Pulse Ox Last 24 Hr 97.7 F-99.0 F 72-92 102-121/61-63 99 Gen: NAD at rest Heart: RRR, +systolic murmur Lung: decreased breath sounds at the bases Abd: soft, nontender Ext: trace edema CBC, BMP 09/09/18 06:35 09/09/18 06:35 Active Medications Acetaminophen (Tylenol -) 650 mg PO Q6H PRN PRN Reason: FEVER Ceftriaxone Sodium 1 gm/ (Dextrose) 100 mls @ 200 mls/hr IVPB DAILY [facility]; Protocol Last Admin: 09/09/18 10:20 Dose: 200 mls/hr Lactulose (Cephulac (Oral Use)) 20 gm PO HS [facility] Last Admin: 09/08/18 23:35 Dose: 20 gm Metoprolol Succinate (Toprol Xl -) 100 mg PO DAILY [facility] Last Admin: 09/09/18 10:21 Dose: Not Given Rifaximin (Xifaxan -) 550 mg PO BID [facility] Last Admin: 09/09/18 10:21 Dose: 550 mg Spironolactone (Aldactone -) 25 mg PO DAILY [facility] Last Admin: 09/09/18 10:21 Dose: Not Given Torsemide (Demadex -) 10 mg PO DAILY [facility] Last Admin: 09/09/18 10:21 Dose: Not Given A/P Liver Cirrhosis Portal Vein Thrombosis Hepatic Encephalopathy Thrombocytopenia LV Diastolic Dysfunction Fever - continue empiric antibiotics - f/u cultures - lactulose, rifaximin - continue torsemide - inhaled bronchodilators as needed
[2018-09-09] MEDS ORDERED: ALBUTEROL SO4 0.083% IH SOL 2.5 MG/3 ML VIAL.NEB. NEB PRN (13:34)
--- NOTE | 2018-09-09 13:46 | PN ---
Progress Note, Physician Chief Complaint: PORTAL VEIN THROMBOSIS ANEMIA FALL LIVER CIRRHOSIS History of Present Illness: NAD NO TX FOR PVT DUE TO LIVER CIRRHOSIS-TO AVOID HEPATOTOXICITY DEVELOPED FEVER ON 09/07/18- NO FEVER SINCE THEN BC/UC PRELIMINARY NEGATIVE UC CONTAMINATED - Current Medication List Current Medications: Active Medications Acetaminophen (Tylenol -) 650 mg PO Q6H PRN PRN Reason: FEVER Albuterol Sulfate (Ventolin 0.083% Nebulizer Soln -) 1 amp NEB Q6H PRN PRN Reason: SHORT OF BREATH/WHEEZING Ceftriaxone Sodium 1 gm/ (Dextrose) 100 mls @ 200 mls/hr IVPB DAILY [facility]; Protocol Last Admin: 09/09/18 10:20 Dose: 200 mls/hr Lactulose (Cephulac (Oral Use)) 20 gm PO HS [facility] Last Admin: 09/08/18 23:35 Dose: 20 gm Metoprolol Succinate (Toprol Xl -) 100 mg PO DAILY [facility] Last Admin: 09/09/18 10:21 Dose: Not Given Rifaximin (Xifaxan -) 550 mg PO BID [facility] Last Admin: 09/09/18 10:21 Dose: 550 mg Spironolactone (Aldactone -) 25 mg PO DAILY [facility] Last Admin: 09/09/18 10:21 Dose: Not Given Torsemide (Demadex -) 10 mg PO DAILY [facility] Last Admin: 09/09/18 10:21 Dose: Not Given - Objective Vital Signs: Vital Signs Temperature 99.0 F 09/09/18 06:00 Pulse Rate 91 H 09/09/18 06:00 Respiratory Rate 18 09/09/18 06:00 Blood Pressure 109/61 09/09/18 06:00 O2 Sat by Pulse Oximetry (%) 99 09/08/18 21:00 Constitutional: Yes: Well Nourished, No Distress, Calm Cardiovascular: Yes: Regular Rate and Rhythm Respiratory: Yes: Regular Gastrointestinal: Yes: Normal Bowel Sounds, Soft Musculoskeletal: Yes: WNL Extremities: Yes: WNL Edema: No Peripheral Pulses WNL: Yes Neurological: Yes: Alert, Pre-Existing Deficit Psychiatric: Yes: Alert Labs: CBC, BMP 09/09/18 06:35 09/09/18 06:35 INR, PTT INR 1.40 (0.83-1.09) H 09/07/18 12:07 Problem List - Problems (1) Anemia Assessment/Plan: 09/23 To liver cirrhosis -stool ob negative -monitor trend -normal transfusion parameters Code(s): D64.9 - ANEMIA, UNSPECIFIED (2) Fall Assessment/Plan: -Physical therapy -Candidate for SNF -safety precautions Code(s): W19.XXXA - UNSPECIFIED FALL, INITIAL ENCOUNTER Qualifiers: Encounter type: initial encounter Qualified Code(s): W19.XXXA - Unspecified fall, initial encounter (3) Fever Assessment/Plan: -resolved -BC/UC preliminary negative -Empiric IV abx -tylenol for fever -ID on board Code(s): R50.9 - FEVER, UNSPECIFIED (4) Hepatic encephalopathy Assessment/Plan: -Seen by GI -On rifaximin Code(s): K72.90 - HEPATIC FAILURE, UNSPECIFIED WITHOUT COMA (5) Portal vein thrombosis Assessment/Plan: -Seen by Hematology -No AC due to hepatic cirrhosis Code(s): I81 - PORTAL VEIN THROMBOSIS Assessment/Plan see problem list Physical therapy
[2018-09-09] MEDS: ACETAMINOPHEN 325 MG TABLET (FP) PO PRN (21:33)
[2018-09-09] MEDS: LACTULOSE 20 GM/30 ML UDC (FOR ORAL USE ONLY) PO SCH (21:33)
[2018-09-10 06:27] LABS: BASO % 0.5 % (0-2.0); EOS % 3.3 % (0-4.5); HEMATOCRIT 26.6 % (32.4-45.2); HEMOGLOBIN 8.8 GM/dL (10.7-15.3); LYMPH % 20.7 % (8-40); MCH 29.5 pg (25.7-33.7); MEAN CELL VOLUME 89.3 fl (80-96); MEAN PLT VOLUME 10.1 fl (7.5-11.1); MONO % 17.5 % (3.8-10.2); PLATELET COUNT 55 K/MM3 (134-434); RBC 2.98 M/mm3 (3.60-5.2); RDW 15.9 % (11.6-15.6); WHITE BLOOD COUNT 5.2 K/mm3 (4.0-10.0)
[2018-09-10 06:56] LABS: ALBUMIN 1.9 g/dl (3.4-5.0); ALK PHOS 120 U/L (45-117); ANION GAP 6 MMOL/L (8-16); BILIRUBIN,TOTAL 1.3 mg/dL (0.2-1); BLOOD UREA NITROGEN 13 mg/dL (7-18); CALCIUM 8.3 mg/dL (8.5-10.1); CHLORIDE 105 mmol/L (98-107); CO2 28 mmol/L (21-32); CREATININE 0.7 mg/dL (0.55-1.3); GLUCOSE,RANDOM 97 mg/dL (74-106); POTASSIUM 3.5 mmol/L (3.5-5.1); SGOT/AST 42 U/L (15-37); SGPT/ALT 22 U/L (13-61); SODIUM 139 mmol/L (136-145)
[2018-09-10] MEDS ORDERED: PT OWN MED DRAWER 7, Y5N ONE ×2 (09:59→21:30)
[2018-09-10] MEDS ORDERED: DEXTROSE 5%-WATER 100 ML IVPB ONE (10:00)
[2018-09-10] MEDS ORDERED: cefTRIAXone SODIUM 1 GM VIAL ONE (10:00)
[2018-09-10 10:08] LABS: PROTEIN C ACTIVITY 44 % (73-180)
--- NOTE | 2018-09-10 11:30 | PN ---
Progress Note (short form) - Note Progress Note: PULMONARY Denies shortness of breath , cough or wheezing. Breathing at baseline. Vital Signs Period Temp Pulse Resp BP Sys/Patel Pulse Ox Last 24 Hr 98 F-99.2 F 88-115 18-20 97-106/41-85 97 Gen: NAD at rest Heart: RRR, +systolic murmur Lung: decreased breath sounds at the bases Abd: soft, nontender Ext: trace edema CBC, BMP 09/10/18 05:50 09/10/18 05:50 Active Medications Acetaminophen (Tylenol -) 650 mg PO Q6H PRN PRN Reason: FEVER Last Admin: 09/09/18 21:33 Dose: 650 mg Albuterol Sulfate (Ventolin 0.083% Nebulizer Soln -) 1 amp NEB Q6H PRN PRN Reason: SHORT OF BREATH/WHEEZING Ceftriaxone Sodium 1 gm/ (Dextrose) 100 mls @ 200 mls/hr IVPB DAILY [facility]; Protocol Last Admin: 09/09/18 10:20 Dose: 200 mls/hr Lactulose (Cephulac (Oral Use)) 20 gm PO HS [facility] Last Admin: 09/09/18 21:33 Dose: 20 gm Metoprolol Succinate (Toprol Xl -) 100 mg PO DAILY [facility] Last Admin: 09/09/18 10:21 Dose: Not Given Rifaximin (Xifaxan -) 550 mg PO BID [facility] Last Admin: 09/09/18 21:31 Dose: Not Given Spironolactone (Aldactone -) 25 mg PO DAILY [facility] Last Admin: 09/09/18 10:21 Dose: Not Given Torsemide (Demadex -) 10 mg PO DAILY [facility] Last Admin: 09/09/18 10:21 Dose: Not Given A/P Liver Cirrhosis Portal Vein Thrombosis Hepatic Encephalopathy Thrombocytopenia LV Diastolic Dysfunction Fever - continue empiric antibiotics - f/u cultures - lactulose, rifaximin - continue torsemide - inhaled bronchodilators as needed
[2018-09-10] MEDS: RIFAXIMIN 550 MG TABLET (UD) PO SCH ×2 (11:54→21:56)
[2018-09-10] MEDS: CEFTRIAXONE 1 GM in DEXTROSE 5%-WATER 100 ML IVPB SCH (11:54)
[2018-09-10] MEDS: TORSEMIDE 10 MG TABLET PO SCH (11:59)
[2018-09-10] MEDS: SPIRONOLACTONE 25 MG TABLET (FP) PO SCH (11:59)
--- NOTE | 2018-09-10 12:00 | PN ---
Progress Note, Physician Chief Complaint: PORTAL VEIN THROMBOSIS ANEMIA FALL LIVER CIRRHOSIS History of Present Illness: NAD NO TX FOR PVT DUE TO LIVER CIRRHOSIS-TO AVOID HEPATOTOXICITY DEVELOPED FEVER ON 09/07/18- NO FEVER SINCE THEN BC/UC PRELIMINARY NEGATIVE UC CONTAMINATED - Current Medication List Current Medications: Active Medications Acetaminophen (Tylenol -) 650 mg PO Q6H PRN PRN Reason: FEVER Last Admin: 09/09/18 21:33 Dose: 650 mg Albuterol Sulfate (Ventolin 0.083% Nebulizer Soln -) 1 amp NEB Q6H PRN PRN Reason: SHORT OF BREATH/WHEEZING Ceftriaxone Sodium 1 gm/ (Dextrose) 100 mls @ 200 mls/hr IVPB DAILY [facility]; Protocol Last Admin: 09/09/18 10:20 Dose: 200 mls/hr Lactulose (Cephulac (Oral Use)) 20 gm PO HS [facility] Last Admin: 09/09/18 21:33 Dose: 20 gm Metoprolol Succinate (Toprol Xl -) 100 mg PO DAILY [facility] Last Admin: 09/09/18 10:21 Dose: Not Given Rifaximin (Xifaxan -) 550 mg PO BID [facility] Last Admin: 09/09/18 21:31 Dose: Not Given Spironolactone (Aldactone -) 25 mg PO DAILY [facility] Last Admin: 09/09/18 10:21 Dose: Not Given Torsemide (Demadex -) 10 mg PO DAILY [facility] Last Admin: 09/09/18 10:21 Dose: Not Given - Objective Vital Signs: Vital Signs Temperature 99.2 F 09/09/18 21:37 Pulse Rate 115 H 09/09/18 21:37 Respiratory Rate 20 09/09/18 21:37 Blood Pressure 99/41 L 09/09/18 21:37 O2 Sat by Pulse Oximetry (%) 97 09/09/18 21:00 Constitutional: Yes: Well Nourished, No Distress, Calm Cardiovascular: Yes: Regular Rate and Rhythm Respiratory: Yes: Regular Gastrointestinal: Yes: Normal Bowel Sounds, Soft, Abdomen, Obese Musculoskeletal: Yes: Muscle Weakness Edema: Yes Edema: LLE: 2+, RLE: 2+ Peripheral Pulses WNL: Yes Neurological: Yes: Alert Psychiatric: Yes: Alert Labs: CBC, BMP 09/10/18 05:50 09/10/18 05:50 INR, PTT INR 1.40 (0.83-1.09) H 09/07/18 12:07 Problem List - Problems (1) Anemia Assessment/Plan: /2 To liver cirrhosis -stool ob negative -monitor trend -normal transfusion parameters Code(s): D64.9 - ANEMIA, UNSPECIFIED (2) Fall Assessment/Plan: -Physical therapy -Candidate for SNF -safety precautions Code(s): W19.XXXA - UNSPECIFIED FALL, INITIAL ENCOUNTER Qualifiers: Encounter type: initial encounter Qualified Code(s): W19.XXXA - Unspecified fall, initial encounter (3) Fever Assessment/Plan: -resolved -BC/UC preliminary negative -Empiric IV abx -tylenol for fever -ID on board Code(s): R50.9 - FEVER, UNSPECIFIED (4) Hepatic encephalopathy Assessment/Plan: -Seen by GI -On rifaximin Code(s): K72.90 - HEPATIC FAILURE, UNSPECIFIED WITHOUT COMA (5) Portal vein thrombosis Assessment/Plan: -Seen by Hematology -No AC due to hepatic cirrhosis Code(s): I81 - PORTAL VEIN THROMBOSIS Assessment/Plan see problem list Physical therapy
[2018-09-10] MEDS: LACTULOSE 20 GM/30 ML UDC (FOR ORAL USE ONLY) PO SCH (21:56)
[2018-09-11 04:06] LABS: SERUM IRON SATURATION 36 % (15-55); TOTAL IRON BINDING CAPACITY 157 ug/dL (250-450); UIBC 101 ug/dL (118-369)
[2018-09-11 07:37] LABS: BASO % 0.9 % (0-2.0); EOS % 2.9 % (0-4.5); HEMATOCRIT 27.9 % (32.4-45.2); HEMOGLOBIN 9.4 GM/dL (10.7-15.3); LYMPH % 18.9 % (8-40); MCHC 33.5 g/dl (32.0-36.0); MEAN CELL VOLUME 89.5 fl (80-96); MEAN PLT VOLUME 11.1 fl (7.5-11.1); MONO % 17.3 % (3.8-10.2); PLATELET COUNT 58 K/MM3 (134-434); RBC 3.12 M/mm3 (3.60-5.2); WHITE BLOOD COUNT 5.2 K/mm3 (4.0-10.0)
[2018-09-11 08:20] LABS: ALK PHOS 124 U/L (45-117); ANION GAP 7 MMOL/L (8-16); BILIRUBIN,TOTAL 1.2 mg/dL (0.2-1); BLOOD UREA NITROGEN 11 mg/dL (7-18); CALCIUM 7.9 mg/dL (8.5-10.1); CHLORIDE 104 mmol/L (98-107); CO2 27 mmol/L (21-32); CREATININE 0.9 mg/dL (0.55-1.3); GLUCOSE,RANDOM 107 mg/dL (74-106); POTASSIUM 3.3 mmol/L (3.5-5.1); SGOT/AST 46 U/L (15-37); SGPT/ALT 24 U/L (13-61); SODIUM 138 mmol/L (136-145); TOT PROT 6.5 g/dl (6.4-8.2)
--- NOTE | 2018-09-11 11:09 | PN ---
Progress Note (short form) - Note Progress Note: Denies shortness of breath ,cough or wheezing. No acute events overnight. Intake & Output 09/08/18 09/09/18 09/10/18 09/11/18 23:59 23:59 23:59 23:59 Intake Total 850 500 500 Output Total 100 Balance 850 400 500 Weight 196 lb 1.6 oz 201 lb 8 oz Last Vital Signs Temp Pulse Resp BP Pulse Ox 98.3 F 108 H 18 127/60 98 09/11/18 09:12 09/11/18 09:12 09/11/18 09:12 09/11/18 09:12 09/10/18 21:00 Active Medications Acetaminophen (Tylenol -) 650 mg PO Q6H PRN PRN Reason: FEVER Last Admin: 09/09/18 21:33 Dose: 650 mg Albuterol Sulfate (Ventolin 0.083% Nebulizer Soln -) 1 amp NEB Q6H PRN PRN Reason: SHORT OF BREATH/WHEEZING Ceftriaxone Sodium 1 gm/ (Dextrose) 100 mls @ 200 mls/hr IVPB DAILY [facility]; Protocol Last Admin: 09/10/18 11:54 Dose: 200 mls/hr Lactulose (Cephulac (Oral Use)) 20 gm PO HS [facility] Last Admin: 09/10/18 21:56 Dose: 20 gm Metoprolol Succinate (Toprol Xl -) 100 mg PO DAILY [facility] Last Admin: 09/10/18 11:59 Dose: Not Given Rifaximin (Xifaxan -) 550 mg PO BID [facility] Last Admin: 09/10/18 21:56 Dose: 550 mg Spironolactone (Aldactone -) 25 mg PO DAILY [facility] Last Admin: 09/10/18 11:59 Dose: Not Given Torsemide (Demadex -) 10 mg PO DAILY [facility] Last Admin: 09/10/18 11:59 Dose: 10 mg Gen: NAD at rest Heart: RRR, +systolic murmur Lung: decreased breath sounds at the bases Abd: soft, nontender Ext: trace edema Laboratory Results - last 24 hr 09/09/18 09/11/18 09/11/18 15:04 05:30 05:30 WBC 5.2 RBC 3.12 L Hgb 9.4 L Hct 27.9 L MCV 89.5 MCH 30.0 MCHC 33.5 RDW 16.0 H Plt Count 58 L MPV 11.1 Absolute Neuts (auto) 3.1 Neutrophils % 60.0 Lymphocytes % 18.9 Monocytes % 17.3 H Eosinophils % 2.9 Basophils % 0.9 Nucleated RBC % 0 Sodium 138 Potassium 3.3 L Chloride 104 Carbon Dioxide 27 Anion Gap 7 L BUN 11 Creatinine 0.9 Creat Clearance w eGFR > 60 Random Glucose 107 H Calcium 7.9 L Iron 56 TIBC 157 L Iron Saturation 36 Total Bilirubin 1.2 H AST 46 H ALT 24 Alkaline Phosphatase 124 H Total Protein 6.5 Albumin 2.0 L A/P Liver Cirrhosis Portal Vein Thrombosis Hepatic Encephalopathy Thrombocytopenia LV Diastolic Dysfunction Fever - ABX - lactulose, rifaximin - continue torsemide - inhaled bronchodilators as needed Dr Bauman Problem List - Problems (1) Anemia Code(s): D64.9 - ANEMIA, UNSPECIFIED (2) Failure to thrive Code(s): EGQ5855 - Qualifiers: Failure to thrive age range: in adult Qualified Code(s): R62.7 - Adult failure to thrive (3) Fall Code(s): W19.XXXA - UNSPECIFIED FALL, INITIAL ENCOUNTER Qualifiers: Encounter type: initial encounter Qualified Code(s): W19.XXXA - Unspecified fall, initial encounter (4) HTN (hypertension) Code(s): I10 - ESSENTIAL (PRIMARY) HYPERTENSION (5) Hepatic encephalopathy Code(s): K72.90 - HEPATIC FAILURE, UNSPECIFIED WITHOUT COMA (6) Increased ammonia level Code(s): R79.89 - OTHER SPECIFIED ABNORMAL FINDINGS OF BLOOD CHEMISTRY (7) Portal vein thrombosis Code(s): I81 - PORTAL VEIN THROMBOSIS (8) Ascites Code(s): R18.8 - OTHER ASCITES Qualifiers: Ascites type: other type Qualified Code(s): R18.8 - Other ascites (9) CHF (congestive heart failure) Code(s): I50.9 - HEART FAILURE, UNSPECIFIED (10) Chronic liver disease and cirrhosis Code(s): K74.60 - UNSPECIFIED CIRRHOSIS OF LIVER; K76.9 - LIVER DISEASE, UNSPECIFIED (11) Thrombocytopenia Code(s): D69.6 - THROMBOCYTOPENIA, UNSPECIFIED (12) Toxic metabolic encephalopathy Code(s): G92 - TOXIC ENCEPHALOPATHY
[2018-09-11] MEDS ORDERED: cefTRIAXone SODIUM 1 GM VIAL ONE (11:14)
[2018-09-11] MEDS ORDERED: PT OWN MED DRAWER 7, Y5N ONE (11:14)
[2018-09-11] MEDS ORDERED: DEXTROSE 5%-WATER 100 ML IVPB ONE (11:14)
[2018-09-11] MEDS: CEFTRIAXONE 1 GM in DEXTROSE 5%-WATER 100 ML IVPB SCH (11:25)
[2018-09-11] MEDS: RIFAXIMIN 550 MG TABLET (UD) PO SCH ×2 (11:26→21:20)
[2018-09-11] MEDS: TORSEMIDE 10 MG TABLET PO SCH (11:26)
[2018-09-11] MEDS: SPIRONOLACTONE 25 MG TABLET (FP) PO SCH (11:27)
[2018-09-11] MEDS ORDERED: POTASSIUM CHLORIDE TABS 20 MEQ TABLET.ER (FP) PO ONE (13:54)
--- NOTE | 2018-09-11 14:00 | PN ---
Progress Note, Physician Chief Complaint: patient seen and examined no distress labs noted potassium to be repleted awaiting placement at [facility] - Current Medication List Current Medications: Active Medications Acetaminophen (Tylenol -) 650 mg PO Q6H PRN PRN Reason: FEVER Last Admin: 09/09/18 21:33 Dose: 650 mg Albuterol Sulfate (Ventolin 0.083% Nebulizer Soln -) 1 amp NEB Q6H PRN PRN Reason: SHORT OF BREATH/WHEEZING Ceftriaxone Sodium 1 gm/ (Dextrose) 100 mls @ 200 mls/hr IVPB DAILY [facility]; Protocol Last Admin: 09/11/18 11:25 Dose: 200 mls/hr Lactulose (Cephulac (Oral Use)) 20 gm PO HS [facility] Last Admin: 09/10/18 21:56 Dose: 20 gm Metoprolol Succinate (Toprol Xl -) 100 mg PO DAILY [facility] Last Admin: 09/11/18 11:26 Dose: 100 mg Potassium Chloride (K-Dur -) 20 meq PO ONCE ONE Stop: 09/11/18 13:55 Rifaximin (Xifaxan -) 550 mg PO BID [facility] Last Admin: 09/11/18 11:26 Dose: 550 mg Spironolactone (Aldactone -) 25 mg PO DAILY [facility] Last Admin: 09/11/18 11:27 Dose: 25 mg Torsemide (Demadex -) 10 mg PO DAILY [facility] Last Admin: 09/11/18 11:26 Dose: 10 mg - Objective Vital Signs: Vital Signs Temperature 98.3 F 09/11/18 09:12 Pulse Rate 108 H 09/11/18 09:12 Respiratory Rate 18 09/11/18 09:12 Blood Pressure 127/60 09/11/18 09:12 O2 Sat by Pulse Oximetry (%) 98 09/11/18 10:00 Constitutional: Yes: Calm Cardiovascular: Yes: Regular Rate and Rhythm, S1, S2 Respiratory: Yes: CTA Bilaterally Gastrointestinal: Yes: Normal Bowel Sounds, Soft Labs: CBC, BMP 09/11/18 05:30 09/11/18 05:30 INR, PTT INR 1.40 (0.83-1.09) H 09/07/18 12:07 Problem List - Problems (1) Fever Assessment/Plan: stat dose of vancomycin given on rocephin day 5 of abx appreciate ID consult cultures pending Microbiology 09/05/18 18:15 Urine - Urine Clean Catch Urine Culture - Final Contaminated: Please Repeat cxr ordered aspiration precautions Code(s): R50.9 - FEVER, UNSPECIFIED (2) Fall Assessment/Plan: PT eval cardiology work up negative start donezipil neurology follow up snf placement pending Code(s): W19.XXXA - UNSPECIFIED FALL, INITIAL ENCOUNTER Qualifiers: Encounter type: initial encounter Qualified Code(s): W19.XXXA - Unspecified fall, initial encounter (3) Increased ammonia level Assessment/Plan: 169 to 116 today is 63.95 lactulose daily monitor ammonia level us show hepatic cirrhosis and partial thrombosis of main portal vein- GI follow up appreciate no need for AC at this time Code(s): R79.89 - OTHER SPECIFIED ABNORMAL FINDINGS OF BLOOD CHEMISTRY (4) Portal vein thrombosis Assessment/Plan: appreciate heme eval no need for AC Code(s): I81 - PORTAL VEIN THROMBOSIS (5) Cryptogenic cirrhosis Assessment/Plan: rifaximin GI on board aldactone, torsemide Code(s): K74.69 - OTHER CIRRHOSIS OF LIVER (6) HTN (hypertension) Assessment/Plan: low BP so metoprolol and aldactone held Code(s): I10 - ESSENTIAL (PRIMARY) HYPERTENSION Assessment/Plan potassium repleted check magnesium snf placement pending
[2018-09-11] MEDS: LACTULOSE 20 GM/30 ML UDC (FOR ORAL USE ONLY) PO SCH (21:20)
[2018-09-11] MEDS: DONEPEZIL HCL 5 MG TABLET (FP) PO SCH (21:20)
[2018-09-12] MEDS: ACETAMINOPHEN 325 MG TABLET (FP) PO PRN (01:57)
[2018-09-12] MEDS: SPIRONOLACTONE 25 MG TABLET (FP) PO SCH (10:25)
[2018-09-12] MEDS ORDERED: cefTRIAXone SODIUM 1 GM VIAL ONE (10:28)
[2018-09-12] MEDS ORDERED: DEXTROSE 5%-WATER 100 ML IVPB ONE (10:28)
--- NOTE | 2018-09-12 10:31 | PN ---
Progress Note (short form) - Note Progress Note: Denies shortness of breath ,cough or wheezing. No acute events overnight. Intake & Output 09/09/18 09/10/18 09/11/18 09/12/18 23:59 23:59 23:59 23:59 Intake Total 500 500 100 Output Total 100 Balance 400 500 100 Weight 201 lb 8 oz 204 lb 5 oz Last Vital Signs Temp Pulse Resp BP Pulse Ox 98.1 F 71 18 80/40 L 98 09/12/18 09:00 09/12/18 10:23 09/12/18 09:00 09/12/18 10:23 09/11/18 21:00 Gen: NAD at rest Heart: RRR, +systolic murmur Lung: decreased breath sounds at the bases Abd: soft, nontender Ext: trace edema Laboratory Results - last 24 hr 09/06/18 09/11/18 17:10 14:40 Magnesium 1.7 L Prothrombin [id number] Mut A/P Liver Cirrhosis Portal Vein Thrombosis Hepatic Encephalopathy Thrombocytopenia LV Diastolic Dysfunction Fever - ABX - lactulose, rifaximin - continue torsemide - inhaled bronchodilators as needed - D/C planning Dr Bauman Problem List - Problems (1) Anemia Code(s): D64.9 - ANEMIA, UNSPECIFIED (2) Failure to thrive Code(s): PIP3550 - Qualifiers: Failure to thrive age range: in adult Qualified Code(s): R62.7 - Adult failure to thrive (3) Fall Code(s): W19.XXXA - UNSPECIFIED FALL, INITIAL ENCOUNTER Qualifiers: Encounter type: initial encounter Qualified Code(s): W19.XXXA - Unspecified fall, initial encounter (4) HTN (hypertension) Code(s): I10 - ESSENTIAL (PRIMARY) HYPERTENSION (5) Hepatic encephalopathy Code(s): K72.90 - HEPATIC FAILURE, UNSPECIFIED WITHOUT COMA (6) Increased ammonia level Code(s): R79.89 - OTHER SPECIFIED ABNORMAL FINDINGS OF BLOOD CHEMISTRY (7) Portal vein thrombosis Code(s): I81 - PORTAL VEIN THROMBOSIS (8) Ascites Code(s): R18.8 - OTHER ASCITES Qualifiers: Ascites type: other type Qualified Code(s): R18.8 - Other ascites (9) CHF (congestive heart failure) Code(s): I50.9 - HEART FAILURE, UNSPECIFIED (10) Chronic liver disease and cirrhosis Code(s): K74.60 - UNSPECIFIED CIRRHOSIS OF LIVER; K76.9 - LIVER DISEASE, UNSPECIFIED (11) Thrombocytopenia Code(s): D69.6 - THROMBOCYTOPENIA, UNSPECIFIED (12) Toxic metabolic encephalopathy Code(s): G92 - TOXIC ENCEPHALOPATHY
[2018-09-12] MEDS: TORSEMIDE 10 MG TABLET PO SCH (10:35)
[2018-09-12] MEDS: RIFAXIMIN 550 MG TABLET (UD) PO SCH ×2 (10:35→21:01)
[2018-09-12] MEDS: CEFTRIAXONE 1 GM in DEXTROSE 5%-WATER 100 ML IVPB SCH (10:35)
--- NOTE | 2018-09-12 10:40 | PN ---
Progress Note, Physician Chief Complaint: PORTAL VEIN THROMBOSIS ANEMIA FALL LIVER CIRRHOSIS History of Present Illness: NAD NO TX FOR PVT DUE TO LIVER CIRRHOSIS-TO AVOID HEPATOTOXICITY DEVELOPED FEVER ON 09/07/18- NO FEVER SINCE THEN BC/UC PRELIMINARY NEGATIVE UC CONTAMINATED Awaiting SNF placement - Current Medication List Current Medications: Active Medications Acetaminophen (Tylenol -) 650 mg PO Q6H PRN PRN Reason: FEVER Last Admin: 09/12/18 01:57 Dose: 650 mg Albuterol Sulfate (Ventolin 0.083% Nebulizer Soln -) 1 amp NEB Q6H PRN PRN Reason: SHORT OF BREATH/WHEEZING Donepezil HCl (Aricept -) 5 mg PO HS [facility] Last Admin: 09/11/18 21:20 Dose: 5 mg Ceftriaxone Sodium 1 gm/ (Dextrose) 100 mls @ 200 mls/hr IVPB DAILY [facility]; Protocol Last Admin: 09/12/18 10:35 Dose: 200 mls/hr Lactulose (Cephulac (Oral Use)) 20 gm PO [facility] Last Admin: 09/11/18 21:20 Dose: 20 gm Metoprolol Succinate (Toprol Xl -) 50 mg PO DAILY [facility] Last Admin: 09/12/18 10:25 Dose: Not Given Rifaximin (Xifaxan -) 550 mg PO BID [facility] Last Admin: 09/12/18 10:35 Dose: 550 mg Spironolactone (Aldactone -) 25 mg PO DAILY [facility] Last Admin: 09/12/18 10:25 Dose: Not Given Torsemide (Demadex -) 10 mg PO DAILY [facility] Last Admin: 09/12/18 10:35 Dose: 10 mg - Objective Vital Signs: Vital Signs Temperature 98.1 F 09/12/18 09:00 Pulse Rate 71 09/12/18 10:23 Respiratory Rate 18 09/12/18 09:00 Blood Pressure 80/40 L 09/12/18 10:23 O2 Sat by Pulse Oximetry (%) 98 09/11/18 21:00 Constitutional: Yes: Well Nourished, No Distress, Calm Cardiovascular: Yes: Regular Rate and Rhythm Respiratory: Yes: Regular Gastrointestinal: Yes: Normal Bowel Sounds, Soft Genitourinary: Yes: WNL Musculoskeletal: Yes: Muscle Weakness Extremities: Yes: WNL Edema: Yes Edema: LLE: 1+, RLE: 1+ Peripheral Pulses WNL: Yes Neurological: Yes: Alert, Oriented Psychiatric: Yes: Alert, Oriented Labs: CBC, BMP 09/11/18 05:30 09/11/18 05:30 INR, PTT INR 1.40 (0.83-1.09) H 09/07/18 12:07 Problem List - Problems (1) Anemia Assessment/Plan: /2 To liver cirrhosis -stool ob negative -monitor trend -normal transfusion parameters Code(s): D64.9 - ANEMIA, UNSPECIFIED (2) Fall Assessment/Plan: -Physical therapy -Candidate for SNF -safety precautions Code(s): W19.XXXA - UNSPECIFIED FALL, INITIAL ENCOUNTER Qualifiers: Encounter type: initial encounter Qualified Code(s): W19.XXXA - Unspecified fall, initial encounter (3) Fever Assessment/Plan: -resolved -BC/UC preliminary negative -Empiric IV abx -tylenol for fever -ID on board Code(s): R50.9 - FEVER, UNSPECIFIED (4) Hepatic encephalopathy Assessment/Plan: -Seen by GI -On rifaximin Code(s): K72.90 - HEPATIC FAILURE, UNSPECIFIED WITHOUT COMA (5) Portal vein thrombosis Assessment/Plan: -Seen by Hematology -No AC due to hepatic cirrhosis Code(s): I81 - PORTAL VEIN THROMBOSIS Assessment/Plan see problem list Physical therapy Cefuroxime 500 mg po bid for 3 more days
[2018-09-12 11:08] LABS: BASO % 0.9 % (0-2.0); EOS % 3.9 % (0-4.5); HEMATOCRIT 28.1 % (32.4-45.2); HEMOGLOBIN 9.2 GM/dL (10.7-15.3); LYMPH % 24.8 % (8-40); MCH 29.6 pg (25.7-33.7); MCHC 32.8 g/dl (32.0-36.0); MEAN CELL VOLUME 90.2 fl (80-96); MEAN PLT VOLUME 10.9 fl (7.5-11.1); MONO % 16.5 % (3.8-10.2); NEUT % 53.9 % (42.8-82.8); PLATELET COUNT 66 K/MM3 (134-434); RBC 3.12 M/mm3 (3.60-5.2); RDW 16.9 % (11.6-15.6); WHITE BLOOD COUNT 4.9 K/mm3 (4.0-10.0)
[2018-09-12 11:22] LABS: ALBUMIN 1.9 g/dl (3.4-5.0); ALK PHOS 116 U/L (45-117); ANION GAP 7 MMOL/L (8-16); BILIRUBIN,TOTAL 1.2 mg/dL (0.2-1); BLOOD UREA NITROGEN 13 mg/dL (7-18); CALCIUM 7.9 mg/dL (8.5-10.1); CHLORIDE 106 mmol/L (98-107); CO2 28 mmol/L (21-32); GLUCOSE,RANDOM 113 mg/dL (74-106); POTASSIUM 4.1 mmol/L (3.5-5.1); SGOT/AST 47 U/L (15-37); SGPT/ALT 25 U/L (13-61); SODIUM 140 mmol/L (136-145); TOT PROT 6.4 g/dl (6.4-8.2)
[2018-09-12] MEDS: SODIUM CHLORIDE 500 ML IV ONE ×2 (11:32→12:18)
--- NOTE | 2018-09-12 15:18 | DS ---
Physical Examination Vital Signs: Vital Signs Temperature 98.1 F 09/12/18 09:00 Pulse Rate 71 09/12/18 10:23 Respiratory Rate 18 09/12/18 09:00 Blood Pressure 80/40 L 09/12/18 10:23 O2 Sat by Pulse Oximetry (%) 100 09/12/18 10:00 Findings/Remarks: Patient is a 73 y/o female with past medical history of HTN, HLD, CHF, cirrhosis , venous insufficiency. Patient was found on the ground by her FLOOR WINDER this morning. Patient unable to say how she fell. Denies hitting her head and denies LOC. Patient son at bedside said that patient has increased forgetfulness and confusion these past months. Patient denies dizziness, chest pain, palpitations. Pt received metoprolol Succ ER 100 mg yesterday, which is causing her to have low BP. Pt is asymptomatic. Metoprolol and spironolactone held today. Avoid IVF to bring the blood pressure up due to already fluid overload 2/2 to liver cirrhosis. Constitutional: Yes: Well Nourished, No Distress, Calm Cardiovascular: Yes: Regular Rate and Rhythm Respiratory: Yes: Regular Gastrointestinal: Yes: Normal Bowel Sounds, Soft Musculoskeletal: Yes: Muscle Weakness Edema: Yes Edema: LLE: 2+, RLE: 2+ Peripheral Pulses WNL: Yes Neurological: Yes: Alert, Oriented Psychiatric: Yes: Alert, Oriented Labs: CBC, BMP 09/12/18 10:15 09/12/18 10:15 Discharge Summary Reason For Visit: FAILURE TO THRIVE,FALL Current Active Problems Anemia (Acute) Cryptogenic cirrhosis (Acute) Failure to thrive (Acute) Fall (Acute) Fever (Acute) HTN (hypertension) (Acute) Hepatic encephalopathy (Acute) Increased ammonia level (Acute) Portal vein thrombosis (Acute) Hospital Course: Laboratory Last Values WBC 4.9 K/mm3 (4.0-10.0) 09/12/18 10:15 RBC 3.12 M/mm3 (3.60-5.2) L 09/12/18 10:15 Hgb 9.2 GM/dL (10.7-15.3) L 09/12/18 10:15 Hct 28.1 % (32.4-45.2) L 09/12/18 10:15 MCV 90.2 fl (80-96) 09/12/18 10:15 MCH 29.6 pg (25.7-33.7) 09/12/18 10:15 MCHC 32.8 g/dl (32.0-36.0) 09/12/18 10:15 RDW 16.9 % (11.6-15.6) H 09/12/18 10:15 Plt Count 66 K/MM3 (134-434) L 09/12/18 10:15 MPV 10.9 fl (7.5-11.1) 09/12/18 10:15 Absolute Neuts (auto) 2.6 K/mm3 (1.5-8.0) 09/12/18 10:15 Neutrophils % 53.9 % (42.8-82.8) 09/12/18 10:15 Lymphocytes % 24.8 % (8-40) D 09/12/18 10:15 Monocytes % 16.5 % (3.8-10.2) H 09/12/18 10:15 Eosinophils % 3.9 % (0-4.5) 09/12/18 10:15 Basophils % 0.9 % (0-2.0) 09/12/18 10:15 Nucleated RBC % 0 % (0-0) 09/12/18 10:15 PT with INR 16.60 SEC (9.7-13.0) H 09/07/18 12:07 INR 1.40 (0.83-1.09) H 09/07/18 12:07 PTT (Actin FS) 39.9 SECONDS (25.2-36.5) H 09/07/18 12:07 Protein C Activity 44 % (73-180) L 09/06/18 19:15 Protein S Activity 38 % (63-140) L 09/06/18 19:15 Func Antithrombin III 44 % (75-135) L 09/06/18 19:15 Sodium 140 mmol/L (136-145) 09/12/18 10:15 Potassium 4.1 mmol/L (3.5-5.1) 09/12/18 10:15 Chloride 106 mmol/L (98-107) 09/12/18 10:15 Carbon Dioxide 28 mmol/L (21-32) 09/12/18 10:15 Anion Gap 7 MMOL/L (8-16) L 09/12/18 10:15 BUN 13 mg/dL (7-18) 09/12/18 10:15 Creatinine 1.0 mg/dL (0.55-1.3) 09/12/18 10:15 Creat Clearance w eGFR 54.05 (>60) 09/12/18 10:15 POC Glucometer 124.72512 UNITS (80-120) 09/07/18 10:54 Random Glucose 113 mg/dL (74-106) H 09/12/18 10:15 Calcium 7.9 mg/dL (8.5-10.1) L 09/12/18 10:15 Magnesium 1.7 mg/dL (1.8-2.4) L 09/11/18 14:40 Iron 56 ug/dL (27-139) 09/09/18 15:04 TIBC 157 ug/dL (250-450) L 09/09/18 15:04 Iron Saturation 36 % (15-55) 09/09/18 15:04 Ferritin 165.1 ng/ml (8-388) 09/09/18 15:04 Total Bilirubin 1.2 mg/dL (0.2-1) H 09/12/18 10:15 AST 47 U/L (15-37) H 09/12/18 10:15 ALT 25 U/L (13-61) 09/12/18 10:15 Alkaline Phosphatase 116 U/L (45-117) 09/12/18 10:15 Ammonia 75.10 umol/L (11-32) H 09/09/18 06:35 Creatine Kinase 728 IU/L (26-192) H 09/06/18 05:30 Creatine Kinase Index 0.7 % (0.0-5.0) 09/06/18 05:30 CK-MB (CK-2) 8.7 ng/mL (0.5-3.6) H 09/06/18 05:30 Troponin I 0.05 ng/ml (0.00-0.05) 09/06/18 05:30 B-Natriuretic Peptide 249.8 pg/ml (5-450) 09/05/18 10:50 Total Protein 6.4 g/dl (6.4-8.2) 09/12/18 10:15 Albumin 1.9 g/dl (3.4-5.0) L 09/12/18 10:15 Triglycerides 54 mg/dL (0-150) 09/06/18 05:30 Cholesterol 109 mg/dL (50-200) 09/06/18 05:30 Total LDL Cholesterol 60 mg/dL (5-100) 09/06/18 05:30 HDL Cholesterol 33 mg/dL (40-60) L 09/06/18 05:30 Tumor Marker AFP 2.8 ng/ml (0.0-8.3) 09/06/18 05:30 Vitamin B12 612 pg/ml (193-986) 09/06/18 05:30 TSH 3.77 uIU/ml (0.358-3.74) H 09/06/18 05:30 Urine Color Suly 09/09/18 12:30 Urine Appearance Slcloudy 09/09/18 12:30 Urine pH 5.0 (5.0-8.0) 09/09/18 12:30 Ur Specific [place] 1.027 (1.010-1.035) 09/09/18 12:30 Urine Protein Negative (NEGATIVE) 09/09/18 12:30 Urine Glucose (UA) Negative (NEGATIVE) 09/09/18 12:30 Urine Ketones Negative (NEGATIVE) 09/09/18 12:30 Urine Blood Negative (NEGATIVE) 09/09/18 12:30 Urine Nitrite Negative (NEGATIVE) 09/09/18 12:30 Urine Bilirubin Negative (<2.0 mg/dL) 09/09/18 12:30 Urine Urobilinogen 4.0 e.u/dl mg/dL (0.2-1.0) H 09/09/18 12:30 Ur Leukocyte Esterase Negative (NEGATIVE) 09/09/18 12:30 Stool Occult Blood Negative (NEGATIVE) 09/09/18 12:30 LIZETH Screen Negative (.) 09/08/18 06:00 Smooth Musc &DEFENSE ANALYST Intrp 11 Units (0-19) 09/08/18 06:00 Anti-Cardiolipin IgG Ab 9 GPL U/mL (0-14) 09/06/18 19:15 Anti-Cardiolipin IgA Ab 14 APL U/mL (0-11) H 09/06/18 19:15 Anti-Cardiolipin IgM Ab 13 MPL U/mL (0-12) H 09/06/18 19:15 RPR Titer Nonreactive (NONREACTIVE) 09/06/18 05:30 Hep Bs Antigen Negative (Negative) 09/06/18 05:30 Hep Bs Antibody Non reactive (.) 09/06/18 05:30 Hep B Core Total Ab Negative (Negative) 09/06/18 05:30 Hep B Core IgM Ab Negative (Negative) 09/06/18 05:30 Hepatitis Be Antibody Negative (Negative) 09/06/18 05:30 Hepatitis Be Antigen Negative (Negative) 09/06/18 05:30 Hep C Ab Diagnostic 0.1 s/co ratio (0.0-0.9) 09/06/18 05:30 Prothrombin [id number] Mut (.) 09/06/18 17:10 Microbiology 09/07/18 15:40 Blood - Peripheral Venous Blood Culture - Preliminary NO GROWTH OBTAINED AFTER 96 HOURS, INCUBATION TO CONTINUE FOR 1 DAYS. 09/07/18 15:40 Blood - Peripheral Venous Blood Culture - Preliminary NO GROWTH OBTAINED AFTER 96 HOURS, INCUBATION TO CONTINUE FOR 1 DAYS. 09/09/18 12:30 Urine - Urine Clean Catch Urine Culture - Final Yeast Like Organism 09/05/18 18:15 Urine - Urine Clean Catch Urine Culture - Final Contaminated: Please Repeat Condition: Stable - Instructions Diet, Activity, Other Instructions: check BMP once a week to see potassium level Referrals: Gatito Lieberman MD, MD [Primary Care Provider] - eRmi Knapp MD [Staff Physician] - Abhinav Abdi MD [Staff Physician] - Disposition: [facility]ILITY - Home Medications Comprehensive Discharge Medication List: Ambulatory Orders Torsemide [Demadex -] 10 mg PO DAILY 06/04/18 Spironolactone [Aldactone] 25 mg PO DAILY 09/05/18 Donepezil HCl [Aricept -] 5 mg PO HS #30 tablet MDD 1 09/11/18 Potassium Chloride 10 meq PO DAILY #7 tab.er.prt MDD 1 09/11/18 Rifaximin [Xifaxan -] 550 mg PO BID #30 tablet MDD 2 09/11/18 Spironolactone [Aldactone -] 25 mg PO DAILY #20 tablet MDD 1 09/11/18 Torsemide [Demadex -] 10 mg PO DAILY #20 tablet MDD 1 09/11/18 Albuterol 0.083% Nebulizer Stefani [Ventolin 0.083% Nebulizer Soln -] 1 amp NEB Q6H PRN amp 09/12/18 Cefuroxime Axetil [Ceftin -] 500 mg PO BID #6 tablet 09/12/18 Lactulose (Oral Use) [Cephulac -] 20 gm PO HS [facility] 09/12/18 Metoprolol Succinate [Toprol XL -] 12.5 mg PO DAILY tab.sr.24h 09/12/18
--- NOTE | 2018-09-12 16:06 | PN ---
GI Progress Note Subjective: Patient is more alert and awake to time, place, and person after receiving xifaxan and lactulose. Patient complain of RLQ pain with diarrhea during the night, recent treatment with IV ABT. - Objective Vital Signs: Vital Signs Temperature 98.1 F 09/12/18 09:00 Pulse Rate 72 09/12/18 14:00 Respiratory Rate 18 09/12/18 09:00 Blood Pressure 81/57 L 09/12/18 14:00 O2 Sat by Pulse Oximetry (%) 100 09/12/18 10:00 Constitutional: No Distress, Calm Eyes: Yes: Conjunctiva Clear Cardiovascular: Yes: Regular Rate and Rhythm Respiratory: Yes: Regular, CTA Bilaterally Gastrointestinal Inspection: No: Ascites ...Auscultate: Yes: Normoactive Bowel Sounds ...Palpate: Yes: Soft, Tenderness (RLQ). No: Firm/Rigid, Guarding, Hepatomegaly , Mass Labs: CBC, BMP 09/12/18 10:15 09/12/18 10:15 INR, PTT INR 1.40 (0.83-1.09) H 09/07/18 12:07 Home Medication List Medication Instructions Recorded Confirmed Type Torsemide [Demadex -] 10 mg PO DAILY 06/04/18 09/05/18 History Spironolactone [Aldactone] 25 mg PO DAILY 09/05/18 09/05/18 History Active Medications Generic Name Dose Route Start Last Admin Trade Name Freq PRN Reason Stop Dose Admin Acetaminophen 650 mg 09/08/18 01:51 09/12/18 01:57 Tylenol - PO 650 mg Q6H PRN Administration FEVER Albuterol Sulfate 1 amp 09/09/18 13:34 Ventolin 0.083% Nebulizer Soln - NEB Q6H PRN SHORT OF BREATH/WHEEZING Cefuroxime Axetil 500 mg 09/12/18 22:00 Ceftin - PO BID TAMMY Donepezil HCl 5 mg 09/11/18 22:00 09/11/18 21:20 Aricept - PO 5 mg HS TAMMY Administration Metoprolol Succinate 12.5 mg 09/13/18 10:00 Toprol Xl - PO DAILY TAMMY Rifaximin 550 mg 09/08/18 10:00 09/12/18 10:35 Xifaxan - PO 550 mg BID TAMMY Administration Spironolactone 25 mg 09/08/18 10:52 09/12/18 10:25 Aldactone - PO Not Given DAILY TAMMY Torsemide 10 mg 09/08/18 10:00 09/12/18 10:35 Demadex - PO 10 mg DAILY TAMMY Administration Problem List - Problems (1) Anemia Assessment/Plan: >stable R stool guaiac qd x 3 Code(s): D64.9 - ANEMIA, UNSPECIFIED (2) Hepatic encephalopathy Assessment/Plan: >R continue xifaxan discontinue lactulose Code(s): K72.90 - HEPATIC FAILURE, UNSPECIFIED WITHOUT COMA (3) Cryptogenic cirrhosis Assessment/Plan: > AFP normal, please obtain abdominal US yearly and AFP every 6 months to screen for hepatoma Code(s): K74.69 - OTHER CIRRHOSIS OF LIVER (4) Portal vein thrombosis Assessment/Plan: no need for anticoagulation at this time Code(s): I81 - PORTAL VEIN THROMBOSIS
[2018-09-12] MEDS: CEFUROXIME AXETIL 500 MG TABLET PO SCH (21:01)
[2018-09-12] MEDS: DONEPEZIL HCL 5 MG TABLET (FP) PO SCH (21:02)
[2018-09-13 07:38] LABS: BASO % 0.7 % (0-2.0); EOS % 3.1 % (0-4.5); HEMATOCRIT 26.3 % (32.4-45.2); HEMOGLOBIN 8.6 GM/dL (10.7-15.3); LYMPH % 19.2 % (8-40); MCH 29.4 pg (25.7-33.7); MCHC 32.9 g/dl (32.0-36.0); MEAN CELL VOLUME 89.5 fl (80-96); MONO % 16.7 % (3.8-10.2); NEUT % 60.3 % (42.8-82.8); PLATELET COUNT 53 K/MM3 (134-434); RBC 2.93 M/mm3 (3.60-5.2); RDW 16.6 % (11.6-15.6); WHITE BLOOD COUNT 4.2 K/mm3 (4.0-10.0)
[2018-09-13 08:42] LABS: ALBUMIN 1.8 g/dl (3.4-5.0); ALK PHOS 128 U/L (45-117); ANION GAP 7 MMOL/L (8-16); BILIRUBIN,TOTAL 0.8 mg/dL (0.2-1); BLOOD UREA NITROGEN 15 mg/dL (7-18); CALCIUM 7.9 mg/dL (8.5-10.1); CHLORIDE 104 mmol/L (98-107); CO2 28 mmol/L (21-32); CREATININE 0.8 mg/dL (0.55-1.3); GLUCOSE,RANDOM 99 mg/dL (74-106); POTASSIUM 3.6 mmol/L (3.5-5.1); SGOT/AST 41 U/L (15-37); SGPT/ALT 21 U/L (13-61); SODIUM 139 mmol/L (136-145); TOT PROT 5.9 g/dl (6.4-8.2)
[2018-09-13] MEDS ORDERED: metoPROLOL SUCCINATE 25 MG TAB.SR.24H (FP) PO SCH ×2 (10:00)
[2018-09-13] MEDS ORDERED: PT OWN MED DRAWER 7, Y5N ONE (10:50)
[2018-09-13] MEDS: CEFUROXIME AXETIL 500 MG TABLET PO SCH (11:54)
[2018-09-13] MEDS: RIFAXIMIN 550 MG TABLET (UD) PO SCH (11:54)
[2018-09-13] MEDS: SPIRONOLACTONE 25 MG TABLET (FP) PO SCH (11:55)
[2018-09-13] MEDS: TORSEMIDE 10 MG TABLET PO SCH (11:56)
[2018-09-13] MEDS ORDERED: SPIRONOLACTONE 25 MG TABLET (FP) PO SCH (12:45)
--- NOTE | 2018-09-13 13:18 | PN ---
Progress Note, Physician History of Present Illness: pulmonary alert,no distress,oob-chair,-sob - Current Medication List Current Medications: Active Medications Acetaminophen (Tylenol -) 650 mg PO Q6H PRN PRN Reason: FEVER Last Admin: 09/12/18 01:57 Dose: 650 mg Albuterol Sulfate (Ventolin 0.083% Nebulizer Soln -) 1 amp NEB Q6H PRN PRN Reason: SHORT OF BREATH/WHEEZING Cefuroxime Axetil (Ceftin -) 500 mg PO BID [facility] Last Admin: 09/13/18 11:54 Dose: 500 mg Donepezil HCl (Aricept -) 5 mg PO HS [facility] Last Admin: 09/12/18 21:02 Dose: 5 mg Metoprolol Succinate (Toprol Xl -) 12.5 mg PO DAILY [facility] Last Admin: 09/13/18 11:56 Dose: Not Given Rifaximin (Xifaxan -) 550 mg PO BID [facility] Last Admin: 09/13/18 11:54 Dose: 550 mg Spironolactone (Aldactone -) 25 mg PO DAILY [facility] Torsemide (Demadex -) 10 mg PO DAILY [facility] Last Admin: 09/13/18 11:56 Dose: Not Given - Objective Vital Signs: Vital Signs Temperature 98.5 F 09/13/18 10:31 Pulse Rate 87 09/13/18 11:50 Respiratory Rate 20 09/13/18 10:31 Blood Pressure 88/60 L 09/13/18 11:50 O2 Sat by Pulse Oximetry (%) 97 09/12/18 21:00 Constitutional: Yes: Well Nourished, Calm Eyes: Yes: WNL HENT: Yes: WNL Neck: Yes: WNL Cardiovascular: Yes: Regular Rate and Rhythm, S1, S2 Respiratory: Yes: Diminished Extremities: Yes: WNL Edema: Yes Labs: CBC, BMP 09/13/18 06:15 09/13/18 06:15 INR, PTT INR 1.40 (0.83-1.09) H 09/07/18 12:07 Assessment/Plan Problem List - Problems (1) Anemia Code(s): D64.9 - ANEMIA, UNSPECIFIED (2) Failure to thrive Code(s): CEW1277 - Qualifiers: Failure to thrive age range: in adult Qualified Code(s): R62.7 - Adult failure to thrive (3) Fall Code(s): W19.XXXA - UNSPECIFIED FALL, INITIAL ENCOUNTER Qualifiers: Encounter type: initial encounter Qualified Code(s): W19.XXXA - Unspecified fall, initial encounter (4) HTN (hypertension) Code(s): I10 - ESSENTIAL (PRIMARY) HYPERTENSION (5) Hepatic encephalopathy Code(s): K72.90 - HEPATIC FAILURE, UNSPECIFIED WITHOUT COMA (6) Increased ammonia level Code(s): R79.89 - OTHER SPECIFIED ABNORMAL FINDINGS OF BLOOD CHEMISTRY (7) Portal vein thrombosis Code(s): I81 - PORTAL VEIN THROMBOSIS (8) Ascites Code(s): R18.8 - OTHER ASCITES Qualifiers: Ascites type: other type Qualified Code(s): R18.8 - Other ascites (9) CHF (congestive heart failure) Code(s): I50.9 - HEART FAILURE, UNSPECIFIED (10) Chronic liver disease and cirrhosis Code(s): K74.60 - UNSPECIFIED CIRRHOSIS OF LIVER; K76.9 - LIVER DISEASE, UNSPECIFIED (11) Thrombocytopenia Code(s): D69.6 - THROMBOCYTOPENIA, UNSPECIFIED (12) Toxic metabolic encephalopathy Code(s): G92 - TOXIC ENCEPHALOPATHY Assessment/Plan Aspiration precautions O2 as needed Lactulose Rifaximin aldactone.demadex check bp DR DOLAN
[2018-09-13 15:10] VITALS: BP 101/66; PULSE 88; TEMP 97.8
== END 2018-09-13 17:40 | DRG 432 ==
LOC: JER 09:51 → JERBED 13:08 → J2W 20:02 → J5S 09-08 00:21
PROVIDERS: ADMIT Family Medicine; ATTEND Family Medicine
DX: K74.69 Other cirrhosis of liver (principal); I81 Portal vein thrombosis; F03.90 Unspecified dementia, unspecified severity, without behavioral disturbance, psychotic disturbance, mood disturbance, and anxiety; E78.5 Hyperlipidemia, unspecified; D64.9 Anemia, unspecified; D69.6 Thrombocytopenia, unspecified; R16.1 Splenomegaly, not elsewhere classified; R55 Syncope and collapse; E66.9 Obesity, unspecified; I11.0 Hypertensive heart disease with heart failure; I50.9 Heart failure, unspecified; K72.90 Hepatic failure, unspecified without coma; R50.9 Fever, unspecified; Z68.39 Body mass index [BMI] 39.0-39.9, adult
CPT/HCPCS: 36415; 70450-TC; 71045-TC-FY; 71046-TC-FY; 76705-TC; 80053; 80061; 81003; 81240; 82105; 82140; 82272; 82550; 82553; 82607; 82728; 82962; 83516; 83540; 83550; 83721; 83735; 83880; 84443; 84484; 85025; 85027; 85300; 85303; 85306; 85610; 85730; 86038; 86593; 86704; 86705; 86706; 86707; 86803; 87040; 87077; 87086; 93005; 93010; 97116-GP; 97161-GP; 99283-25; J7030

== ENCOUNTER 2018-10-28 11:34 | Inpatient (IN) | payer OTHER ==
--- NOTE | 2018-10-28 12:06 | PDOC ---
History of Present Illness - General Chief Complaint: Weakness Stated Complaint: WEAKNESS Time Seen by Provider: 10/28/18 11:49 - History of Present Illness Initial Comments: 10/28/18 12:05 73 yo F with PMH HTN, HLD, preserved EF CHF, cirrhosis, venous insufficiency presents from [place] this morning for confusion and generalized weakness. The nursing staff states that she is normally A&OX3 however this morning she did not recognize her nurse who she normally knows. The nurse from [facility] states that she is normally able to ambulate well with a rolling walker, however this morning she was having some generalized weakness. The patient is unable to tell me where we are or what type of building we are in but states that her son brought her here because she was not feeling well. She endorses a cough since last night which is not productive of any sputum. She denies any fevers, chills , SOB, chest pain, abdominal pain, n/v/d, dysuria, hematuria, weakness, LE edema. Past History - Past Medical History Allergies/Adverse Reactions: Allergies Allergy/AdvReac Type Severity Reaction Status Date / Time No Known Allergies Allergy Verified 06/06/18 10:23 Home Medications: Ambulatory Orders Torsemide [Demadex -] 10 mg PO DAILY 06/04/18 Spironolactone [Aldactone] 25 mg PO DAILY 09/05/18 Potassium Chloride 10 meq PO DAILY #7 tab.er.prt MDD 1 09/11/18 Rifaximin [Xifaxan -] 550 mg PO BID #30 tablet MDD 2 09/11/18 Metoprolol Succinate [Toprol XL -] 12.5 mg PO DAILY tab.sr.24h 09/12/18 Albuterol 0.083% Nebulizer Stefani [Ventolin 0.083% Nebulizer Soln -] 1 neb NEB Q6H PRN 10/28/18 Anemia: Yes Asthma: No Cancer: No Cardiac Disorders: Yes (HF) CVA: No COPD: No CHF: Yes Dementia: No Diabetes: No GI Disorders: Yes (gerd) Disorders: No HTN: Yes Hypercholesterolemia: Yes Liver Disease: Yes (CIRRHOSIS) Seizures: No Thyroid Disease: No Other medical history: HX FALLS,LACK OF COORDINATION,FAILURE TO THRIVE - Surgical History Abdominal Surgery: No Appendectomy: No Cardiac Surgery: No Cholecystectomy: No Lung Surgery: No Neurologic Surgery: No Orthopedic Surgery: No - Immunization History Immunization Up to Date: Yes - Suicide/Smoking/Psychosocial Hx Smoking Status: No Smoking History: Never smoked Years of Tobacco Use: 10 Have you smoked in the past 12 months: No Number of Cigarettes Smoked Daily: 0 Information on smoking cessation initiated: No Hx Alcohol Use: No Drug/Substance Use Hx: No Substance Use Type: None Review of Systems - Review of Systems Able to Perform ROS?: Yes Constitutional: No: Chills, Fever HEENTM: No: Blurred Vision Respiratory: Yes: Cough. No: Shortness of Breath Cardiac (ROS): No: Chest Pain, Irregular Heart Rate ABD/GI: No: Abdominal Distended, Diarrhea : No: Burning, Dysuria Musculoskeletal: No: Back Pain, Joint Pain Neurological: No: Headache, Paresthesia, Weakness, Dizziness *Physical Exam - Vital Signs Last Vital Signs Temp Pulse Resp BP Pulse Ox 97.4 F L 83 19 144/64 98 10/28/18 11:40 10/28/18 11:40 10/28/18 11:40 10/28/18 11:40 10/28/18 11:54 - Physical Exam Comments: 10/28/18 12:06 GEN: Alert, oriented to self and family members, however disoriented to location and time HEENT: moist mucus membranes, PERRL, unable to cooperate with extraocular muscle testing NECK: supple HEART: systolic blowing murmur noted best at right sternal border LUNGS: CTA b/l ABDOMEN: soft, nontender, no ascited noted EXTREMITIES: no peripheral edema or calf tenderness NEURO: CN II-XII in tact with exception of right weakness in lower facial msucles (smile) which is documented previous visits. 5/5 sensation throughout UE and LE, difficulty following 2 step commands, Asterixis noted Moderate Sedation - Procedure Monitoring Vital Signs: Procedure Monitoring Vital Signs Temperature 97.4 F L 10/28/18 11:40 Pulse Rate 83 10/28/18 11:40 Respiratory Rate 19 10/28/18 11:40 Blood Pressure 144/64 10/28/18 11:40 O2 Sat by Pulse Oximetry (%) 98 10/28/18 11:54 ED Treatment Course - LABORATORY CBC & Chemistry Diagram: 10/28/18 12:14 10/28/18 12:14 Medical Decision Making - Medical Decision Making 10/28/18 13:06 73 yo female with extensive PMH including liver cirrhosis presents with confusion and generalized weakness as per group home. Pt more disoriented than stated baseline, asterixis noted. Ddx consists of Hepatic encephalopathy, metabolic encephalopathy, much less likely CVA/TIA. CBC, CMP, Ammonia level, CXR, UA/Culture, Head CT noncontrast pending. 10/28/18 13:10 CBC noted with Thrombocytopenia. plt count 58. pt denies fall or trauma, Head CT pending to r/o hemorrhage. *DC/Admit/Observation/Transfer Diagnosis at time of Disposition: Hepatic encephalopathy, Chronic liver disease and cirrhosis - Referrals - Patient Instructions - Post Discharge Activity
[2018-10-28 12:59] LABS: BASO % 0.9 % (0-2.0); EOS % 1.5 % (0-4.5); HEMATOCRIT 31.3 % (32.4-45.2); HEMOGLOBIN 10.5 GM/dL (10.7-15.3); LYMPH % 21.5 % (8-40); MCH 30.2 pg (25.7-33.7); MCHC 33.7 g/dl (32.0-36.0); MEAN CELL VOLUME 89.7 fl (80-96); MEAN PLT VOLUME 10.5 fl (7.5-11.1); MONO % 13.4 % (3.8-10.2); NEUT % 62.7 % (42.8-82.8); PLATELET COUNT 58 K/MM3 (134-434); RBC 3.49 M/mm3 (3.60-5.2); RDW 15.6 % (11.6-15.6); WHITE BLOOD COUNT 3.8 K/mm3 (4.0-10.0)
[2018-10-28 13:23] LABS: ALBUMIN 2.4 g/dl (3.4-5.0); ALK PHOS 128 U/L (45-117); ANION GAP 5 MMOL/L (8-16); BILIRUBIN,TOTAL 1.3 mg/dL (0.2-1); BLOOD UREA NITROGEN 13 mg/dL (7-18); CALCIUM 8.6 mg/dL (8.5-10.1); CHLORIDE 109 mmol/L (98-107); CO2 26 mmol/L (21-32); CREATININE 0.9 mg/dL (0.55-1.3); GLUCOSE,RANDOM 84 mg/dL (74-106); MAGNESIUM 1.9 mg/dL (1.8-2.4); POTASSIUM 5.2 mmol/L (3.5-5.1); SGOT/AST 73 U/L (15-37); SGPT/ALT 29 U/L (13-61); SODIUM 140 mmol/L (136-145); TOT PROT 7.6 g/dl (6.4-8.2)
[2018-10-28] MEDS ORDERED: LACTULOSE 20 GM/30 ML UDC (FOR ORAL USE ONLY) PO ONE ×2 (14:00→14:09)
[2018-10-28] MEDS ORDERED: LACTULOSE 20 GM/30 ML UDC (FOR ORAL USE ONLY) ONE (14:10)
--- NOTE | 2018-10-28 14:12 | PDOC ---
Attending Attestation - Resident Resident Name: Gómez Ramsey - ED Attending Attestation I have performed the following: I have examined & evaluated the patient, The case was reviewed & discussed with the resident, I agree w/resident's findings & plan, Exceptions are as noted - HPI HPI: 10/28/18 14:05 The patient is a 73 year old female with a significant PMH of HTN, HLD, preserved EF CHF, cryptogenic cirrhosis, venous insufficiency who presents to the emergency department sent in by [facility] for generalized weakness and confusion since this morning. Patient is a poor historian and is unable to provide further information. Patient states that she has not been feeling well and has had a cough since last night." The long term reports the patient ambulates with a rollator and is typically oriented x3. The [place] nurse went to check on the patient this morning, the patient did not recognize her and had generalized weakness which is abnormal for her. The patient denies chest pain, shortness of breath, headache and dizziness. Denies fever, chills, nausea, vomit, diarrhea and constipation. Denies dysuria, frequency, urgency and hematuria. Allergies: NKA Past surgical history: None reported Social history: No reported alcohol, drug or cigarette use. - Physicial Exam PE: 10/28/18 14:08 agree with resident exam - Medical Decision Making 10/28/18 14:08 73yo F with MMP including cryptogenic cirrhosis presents to the ED with confusion upon waking up this morning. Pt also reportedly has R sided facial droop although family at bedside states this is not new. Vitals wnl. Exam with no new deficits otherwise, although pt has asterixes. Ammonia level elevated to 150s. Confusion and weakness likely 2/2 hepatic encephalopathy. CXR with possible new mass, will order CT for w/u. WIll give lactulose for elevated ammonia. Plan to admit. Heart Score/ECG Review #1 10/28/18 14:12 Twelve-lead EKG was performed and reviewed by me. Normal sinus rhythm, rate 81. Normal axis and intervals. No ST elevations or T-wave inversions.
[2018-10-28 15:19] LABS: URINE APPEARANCE CLEAR; URINE BILIRUBIN NEGATIVE (<2.0 mg/dL); URINE COLOR LTYELLOW; URINE GLUCOSE (UA) NEGATIVE (NEGATIVE); URINE KETONE NEGATIVE (NEGATIVE); URINE LEUK ESTERASE NEGATIVE (NEGATIVE); URINE NITRITE NEGATIVE (NEGATIVE); URINE PROTEIN NEGATIVE (NEGATIVE); URINE UROBILINOGEN NEGATIVE mg/dL (0.2-1.0)
[2018-10-28] MEDS ORDERED: ALBUTEROL SO4 0.083% IH SOL 2.5 MG/3 ML VIAL.NEB. NEB PRN (16:51)
[2018-10-28] MEDS ORDERED: LACTULOSE 20 GM/30 ML UDC (FOR ORAL USE ONLY) PO PRN (16:52)
[2018-10-28] MEDS ORDERED: FUROSEMIDE 40 MG/4 ML INJECTABLE VIAL ONE (17:33)
[2018-10-28] MEDS: FUROSEMIDE 40 MG/4 ML INJECTABLE VIAL IVPUSH SCH (17:33)
[2018-10-28 18:08] LABS: N-TERMINAL BNP 139.5 pg/ml (5-450)
[2018-10-28 21:50] VITALS: BMI 33.1
[2018-10-28] MEDS: HEPARIN NA (PORCINE) 5,000 UNITS/ML 1ML VIAL SQ SCH (22:08)
[2018-10-28] MEDS: RIFAXIMIN 550 MG TABLET (UD) PO SCH (23:40)
[2018-10-29 06:31] LABS: BASO % 0.8 % (0-2.0); EOS % 2.2 % (0-4.5); HEMATOCRIT 28.2 % (32.4-45.2); HEMOGLOBIN 9.5 GM/dL (10.7-15.3); LYMPH % 28.7 % (8-40); MCH 29.8 pg (25.7-33.7); MCHC 33.8 g/dl (32.0-36.0); MEAN CELL VOLUME 88.4 fl (80-96); MEAN PLT VOLUME 10.8 fl (7.5-11.1); MONO % 12.3 % (3.8-10.2); PLATELET COUNT 53 K/MM3 (134-434); RBC 3.19 M/mm3 (3.60-5.2); RDW 15.2 % (11.6-15.6); WHITE BLOOD COUNT 4.4 K/mm3 (4.0-10.0)
[2018-10-29 06:42] LABS: INR 1.38 (0.83-1.09); PROTHROMBIN TIME (PATIENT) 16.3 SEC (9.7-13.0)
[2018-10-29 07:31] LABS: ALBUMIN 2.1 g/dl (3.4-5.0); ALK PHOS 113 U/L (45-117); ANION GAP 4 MMOL/L (8-16); BILIRUBIN,TOTAL 1.5 mg/dL (0.2-1); BLOOD UREA NITROGEN 11 mg/dL (7-18); CALCIUM 8.2 mg/dL (8.5-10.1); CHLORIDE 108 mmol/L (98-107); CO2 26 mmol/L (21-32); CREATININE 0.9 mg/dL (0.55-1.3); GLUCOSE,RANDOM 69 mg/dL (74-106); MAGNESIUM 1.9 mg/dL (1.8-2.4); PHOSPHOROUS 3.9 mg/dL (2.5-4.9); POTASSIUM 3.8 mmol/L (3.5-5.1); SGOT/AST 46 U/L (15-37); SGPT/ALT 26 U/L (13-61); SODIUM 137 mmol/L (136-145); TOT PROT 6.9 g/dl (6.4-8.2)
[2018-10-29] MEDS ORDERED: PT OWN MED DRAWER 7, Y5N ONE (09:50)
[2018-10-29] MEDS: RIFAXIMIN 550 MG TABLET (UD) PO SCH ×2 (10:02→22:55)
[2018-10-29] MEDS: HEPARIN NA (PORCINE) 5,000 UNITS/ML 1ML VIAL SQ SCH ×2 (10:04→22:37)
[2018-10-29] MEDS: FUROSEMIDE 40 MG/4 ML INJECTABLE VIAL IVPUSH SCH (10:04)
[2018-10-29] MEDS: metoPROLOL SUCCINATE 25 MG TAB.SR.24H (FP) PO SCH (10:04)
[2018-10-29] MEDS: SPIRONOLACTONE 25 MG TABLET (FP) PO SCH (10:04)
--- NOTE | 2018-10-29 11:36 | CON.GI ---
Consult Consult Specialty:: GI Referred by:: Dr Carson Reason for Consultation:: Hepatic encephalopathy - History of Present Illness Chief Complaint: increasing confusion History of Present Illness: 73 y.o. F with known cirrhosis, presumably on basis of nonalcoholic fatty liver (serologic workup negative in 2017). Has history of encephalopathy in past, maintained on chronic rifaxamin. Not clear whether she has been given lactulose as well. Transferred from [place] for increasing confusion, found to have extremely elevated ammonia level. 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) History of Recent Travel: No Home Medications - Allergies Allergies/Adverse Reactions: Allergies Allergy/AdvReac Type Severity Reaction Status Date / Time No Known Allergies Allergy Verified 06/06/18 10:23 - Home Medications Home Medications: Ambulatory Orders Torsemide [Demadex -] 10 mg PO DAILY 06/04/18 Spironolactone [Aldactone] 25 mg PO DAILY 09/05/18 Potassium Chloride 10 meq PO DAILY #7 tab.er.prt MDD 1 09/11/18 Rifaximin [Xifaxan -] 550 mg PO BID #30 tablet MDD 2 09/11/18 Metoprolol Succinate [Toprol XL -] 12.5 mg PO DAILY tab.sr.24h 09/12/18 Albuterol 0.083% Nebulizer Stefani [Ventolin 0.083% Nebulizer Soln -] 1 neb NEB Q6H PRN 10/28/18 Physical Exam-GI Vital Signs: Vital Signs Temperature 98.1 F 10/29/18 06:00 Pulse Rate 85 10/29/18 06:00 Respiratory Rate 20 10/29/18 06:00 Blood Pressure 95/47 L 10/29/18 06:00 O2 Sat by Pulse Oximetry (%) 99 10/28/18 21:45 Gastrointestinal Inspection: No: WNL, Ascites, Distention, Hernia, Scars, Other Neurological: Yes: Alert, Oriented (Pt oriented to [facility], knows I am a doctor. Knows that Jakub is the president. Not quite sure of what year it is.) Labs: CBC, BMP 10/29/18 05:15 10/29/18 05:15 INR, PTT INR 1.38 (0.83-1.09) H 10/29/18 05:15 Problem List - Problems (1) Hepatic encephalopathy Code(s): K72.90 - HEPATIC FAILURE, UNSPECIFIED WITHOUT COMA Assessment/Plan Hepatic encephalopathy, exacerbation. Pt should be receiving lactulose with her rifaxamin. No sign of significant ascites on clinical exam. Will begin lactulose 30 cc po tid.
--- NOTE | 2018-10-29 11:54 | EKG ---
Test Reason : Blood Pressure : / mmHG Vent. Rate : 081 BPM Atrial Rate : 081 BPM P-R Int : 170 ms QRS Dur : 084 ms QT Int : 398 ms P-R-T Axes : 016 -01 043 degrees QTc Int : 462 ms NORMAL SINUS RHYTHM NORMAL ECG WHEN COMPARED WITH ECG OF 05-SEP-2018 11:03, NO SIGNIFICANT CHANGE WAS FOUND Confirmed by ALBAN DRISCOLL MD ([id number]) on 10/29/2018 11:53:51 AM Referred By: Confirmed By:ALBAN DRISCOLL MD
[2018-10-29] MEDS: LACTULOSE 20 GM/30 ML UDC (FOR ORAL USE ONLY) PO SCH ×2 (14:00→22:37)
--- NOTE | 2018-10-29 14:37 | CON.CARD ---
Consult Consult Specialty:: Cardiology Reason for Consultation:: change in MS - History of Present Illness History of Present Illness: 73 year old female with a significant PMH of HTN, HLD, preserved EF CHF, cryptogenic cirrhosis, venous insufficiency who presents to the emergency department sent in by [facility] for generalized weakness and confusion since this morning. Has high ammonia. Seen with son at bedside. No chest pain, dyspnea, dizziness or palpitations. 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) History of Recent Travel: No Home Medications - Allergies Allergies/Adverse Reactions: Allergies Allergy/AdvReac Type Severity Reaction Status Date / Time No Known Allergies Allergy Verified 06/06/18 10:23 - Home Medications Home Medications: Ambulatory Orders Torsemide [Demadex -] 10 mg PO DAILY 06/04/18 Spironolactone [Aldactone] 25 mg PO DAILY 09/05/18 Potassium Chloride 10 meq PO DAILY #7 tab.er.prt MDD 1 09/11/18 Rifaximin [Xifaxan -] 550 mg PO BID #30 tablet MDD 2 09/11/18 Metoprolol Succinate [Toprol XL -] 12.5 mg PO DAILY tab.sr.24h 09/12/18 Albuterol 0.083% Nebulizer Stefani [Ventolin 0.083% Nebulizer Soln -] 1 neb NEB Q6H PRN 10/28/18 Family Disease History - Family Disease History Family History: Unable to Obtain Review of Systems Unable to obtain ROS, reason: delerium Vital Signs: Vital Signs Temperature 98 F 10/29/18 13:41 Pulse Rate 71 10/29/18 13:41 Respiratory Rate 20 10/29/18 13:41 Blood Pressure 110/58 L 10/29/18 13:41 O2 Sat by Pulse Oximetry (%) 99 10/29/18 10:00 Constitutional: Yes: Well Nourished, No Distress, Calm Eyes: Yes: Conjunctiva Clear, EOM Intact HENT: Yes: Atraumatic, Normocephalic Neck: Yes: Supple, Trachea Midline Respiratory: Yes: Regular, CTA Bilaterally Gastrointestinal: Yes: Soft Cardiovascular: Yes: Regular Rate and Rhythm Heart Sounds: Yes: S1, S2 Murmur: Yes: Systolic Murmur (3/6) Edema: Yes Edema: LLE: 1+, RLE: 1+ - Other Data Labs, Other Data: CBC, BMP 10/29/18 05:15 10/29/18 05:15 INR, PTT INR 1.38 (0.83-1.09) H 10/29/18 05:15 Troponin, BNP 10/28/18 10/29/18 12:14 05:15 Troponin I < 0.02 0.03 B-Natriuretic Peptide 139.5 Troponin, BNP 10/28/18 10/29/18 12:14 05:15 Troponin I < 0.02 0.03 B-Natriuretic Peptide 139.5 Laboratory Tests 10/28/18 10/29/18 10/29/18 13:06 05:15 08:35 Ammonia 153.50 H 110.60 H Albumin 2.1 L Imaging - Results EKG: Image Reviewed (NSR no ST T changes.) Problem List - Problems (1) Chronic liver disease and cirrhosis Code(s): K74.60 - UNSPECIFIED CIRRHOSIS OF LIVER; K76.9 - LIVER DISEASE, UNSPECIFIED Assessment/Plan History of cirrhosis with hepatic encephalopathy. Chronic lower extremity swelling managed with diuretics. No pulmonary congestion. Admitted with hepatic encephalopathy. Continue management for elevated Ammonia and encephalopathy. Volume status is stable.
--- NOTE | 2018-10-29 15:23 | HP ---
Admitting History and Physical - Admission History of Present Illness: 73 year old female with a significant PMH of HTN, HLD, preserved EF CHF, cryptogenic cirrhosis, venous insufficiency who presents to the emergency department sent in by [facility] for generalized weakness and confusion since this morning. Patient is a poor historian and is unable to provide further information. Patient states that she has not been feeling well and has had a cough since last night." The prison reports the patient ambulates with a rollator and is typically oriented x3. The [place] nurse went to check on the patient this morning, the patient did not recognize her and had generalized weakness which is abnormal for her. 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: Other (hepatic encephalopathy) Cardiovascular: Yes: CHF, HTN Gastrointestinal: Yes: Ascites Hepatobiliary: Yes: Cirrhosis ...: No Heme/Onc: Yes: Anemia, Thrombocytopenia - Smoking History Smoking history: Former smoker Have you smoked in the past 12 months: No Aproximately how many cigarettes per day: 0 - Alcohol/Substance Use Hx Alcohol Use: No - Social History 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 ([facility]) History of Recent Travel: No Home Medications - Allergies Allergies/Adverse Reactions: Allergies Allergy/AdvReac Type Severity Reaction Status Date / Time No Known Allergies Allergy Verified 06/06/18 10:23 - Home Medications Home Medications: Ambulatory Orders Torsemide [Demadex -] 10 mg PO DAILY 06/04/18 Spironolactone [Aldactone] 25 mg PO DAILY 09/05/18 Potassium Chloride 10 meq PO DAILY #7 tab.er.prt MDD 1 09/11/18 Rifaximin [Xifaxan -] 550 mg PO BID #30 tablet MDD 2 09/11/18 Metoprolol Succinate [Toprol XL -] 12.5 mg PO DAILY tab.sr.24h 09/12/18 Albuterol 0.083% Nebulizer Stefani [Ventolin 0.083% Nebulizer Soln -] 1 neb NEB Q6H PRN 10/28/18 Physical Examination Vital Signs: Vital Signs Temperature 98 F 10/29/18 13:41 Pulse Rate 71 10/29/18 13:41 Respiratory Rate 20 10/29/18 13:41 Blood Pressure 110/58 L 10/29/18 13:41 O2 Sat by Pulse Oximetry (%) 99 10/29/18 10:00 Cardiovascular: Yes: S1, S2 Respiratory: Yes: Regular, CTA Bilaterally Gastrointestinal: Yes: Normal Bowel Sounds, Soft Neurological: Yes: Alert Labs: CBC, BMP 10/29/18 05:15 10/29/18 05:15 Problem List - Problems (1) Hepatic encephalopathy Assessment/Plan: LACTULOSE GI CONSULT Code(s): K72.90 - HEPATIC FAILURE, UNSPECIFIED WITHOUT COMA (2) Pleural effusion Assessment/Plan: DIURETICS PULM AND CARDIO Code(s): J90 - PLEURAL EFFUSION, NOT ELSEWHERE CLASSIFIED (3) Ascites Assessment/Plan: ABOVE Code(s): R18.8 - OTHER ASCITES Qualifiers: Ascites type: other type Qualified Code(s): R18.8 - Other ascites (4) CHF (congestive heart failure) Assessment/Plan: DIURETICS CARDIO Code(s): I50.9 - HEART FAILURE, UNSPECIFIED
--- NOTE | 2018-10-29 16:05 | PN ---
Progress Note (short form) - Note Progress Note: PULMONARY CONSULTATION DICTATED 10/29/18 IMP ALTERED MENTAL STATUS HEPATIC ENCEPHALOPATHY COPD,BRONCHIECTASIS PROMINENT ASH ANEMIA/THROMBOCYTOPENIA CIRRHOSIS/ASCITES HYPERTROPHIC CARDIOMYOPATHY CHF HTN PLAN LACTULOSE/RIFAXIMIN INHALED BRONCHODILATORS DAILY WT LASIX/ALDACTONE MONITOR LYTES,CBC,PLT CT TREND AMMONIA LEVEL DR DOLAN Problem List - Problems (1) Chronic liver disease and cirrhosis Code(s): K74.60 - UNSPECIFIED CIRRHOSIS OF LIVER; K76.9 - LIVER DISEASE, UNSPECIFIED (2) Hepatic encephalopathy Code(s): K72.90 - HEPATIC FAILURE, UNSPECIFIED WITHOUT COMA (3) Anemia Code(s): D64.9 - ANEMIA, UNSPECIFIED (4) Ascites Code(s): R18.8 - OTHER ASCITES Qualifiers: Ascites type: other type Qualified Code(s): R18.8 - Other ascites (5) CHF (congestive heart failure) Code(s): I50.9 - HEART FAILURE, UNSPECIFIED (6) HTN (hypertension) Code(s): I10 - ESSENTIAL (PRIMARY) HYPERTENSION (7) Increased ammonia level Code(s): R79.89 - OTHER SPECIFIED ABNORMAL FINDINGS OF BLOOD CHEMISTRY (8) Thrombocytopenia Code(s): D69.6 - THROMBOCYTOPENIA, UNSPECIFIED
--- NOTE | 2018-10-29 18:08 | CONS ---
PULMONARY CONSULTATION DATE OF CONSULTATION: REFERRING PHYSICIAN: Gerhard Carson MD HISTORY OF PRESENT ILLNESS: The patient is a 73-year-old black female known to me from previous hospitalization with past medical history of nonalcoholic fatty liver disease, fatty liver with cirrhosis, a history of encephalopathy maintained on chronic rifaximin, history of hypertension, hypertrophic cardiomyopathy, congestive heart failure, likely COPD, bronchiectasis, cirrhosis, anemia with thrombocytopenia, a retirement resident transferred to [facility] on October 28 secondary to increase in confusion. The patient was noted on admission to have a markedly elevated ammonia level of 153. She was admitted and she was started on Lasix as well as lactulose. The patient underwent a CT scan of the chest secondary to prominent right hilum. CAT scan revealed COPD changes, predominantly upper lobe, with cystic changes as well as bronchiectatic change, more prominent on the right upper lobe. No hilar mass was appreciated but there was mild hilar enlargement, most likely secondary to engorged vessels. The patient has a history of tobacco use, quit greater than 30 years ago. There is no issue of occupational exposure to chemical fumes. There is no history of recent travel. She was born in [place], moved to the [facility] greater than 30 years ago. There is no history of either cough or hemoptysis, pneumonia, weight loss or night sweats. PAST MEDICAL HISTORY: Includes end-stage cirrhosis with ascites, hypertrophic cardiomyopathy, congestive heart failure, hypertension, hyperlipidemia, chronic venous insufficiency. REVIEW OF SYSTEMS: Unable to obtain at this time. CURRENT MEDICATIONS: Include Aldactone, K-Dur, Lasix, Toprol, heparin, rifaximin, lactulose, albuterol nebulizer. PHYSICAL EXAMINATION: General: The patient is a well-developed and nourished female, lethargic, in no acute distress. Vital Signs: Blood pressure 110/58, respiratory rate is 20, O2 saturation is 99% on room air. HEENT: Normocephalic, atraumatic. Neck: Supple. Heart: Regular S1, S2. Chest: Clear. Abdomen: Soft, positive bowel sounds. Extremities: No cyanosis or edema. LABORATORY: BUN 11, creatinine 0.9. Bilirubin is 18.2. Initial ammonia level was 53.5, currently 110. Albumin 2.1. WBC is 4.4, hemoglobin 9.5, hematocrit 28.2 with a platelet count of 53,000. There are 66 polyp, 28 lymphocytes and 12 monocytes. INR is 1.38. Chest CT reveals minor COPD changes mainly in the upper lobes bilateral hilar enlargement secondary to engorged vessels and mild to moderate ascites. IMPRESSION: 1. Altered mental status secondary to hepatic encephalopathy and ammonia level. 2. Likely chronic obstructive pulmonary disease/bronchiectasis. 3. Prominent amy, likely secondary to hyperengorgement. 4. Anemia, thrombocytopenia secondary to chronic liver disease. 5. Cirrhosis with ascites. 6. Hypertrophic cardiomyopathy and congestive heart failure. 7. Hypertension. PLAN: Continue lactulose, Lasix, Aldactone. Daily weights and ammonia level, monitor electrolytes, CBC, and platelet count, inhaled bronchodilators. HERMAN DOLAN M.D. [id number]
[2018-10-30] MEDS: oxyCODONE HCL 5 MG TABLET PO PRN ×2 (01:26→18:11)
[2018-10-30] MEDS: LACTULOSE 20 GM/30 ML UDC (FOR ORAL USE ONLY) PO SCH ×3 (05:38→21:48)
--- NOTE | 2018-10-30 09:23 | PN ---
GI Progress Note Subjective: Patient is a 73 y/o female with past medical history of non-alcoholic fatty liver and cirrhosis. She was transferred from [facility]F for increased confusion and while in ER labs showed elevated ammonia level of 153. Patient was started on Lactulose 30cc TID with good effect, ammonia level currently 110.60. Patient is alert and oriented x 2 (name and location). Abdominal US in 09/05/18 shows hepatic cirrhosis and AFP wnl at 2.8. Patient complains of diarrhea since starting lactulose and is accompanied with lower abdominal cramping. Denies nausea, vomiting, rectal bleeding, blood in stool. - Objective Vital Signs: Vital Signs Temperature 98.1 F 10/30/18 05:00 Pulse Rate 75 10/30/18 05:00 Respiratory Rate 20 10/30/18 05:00 Blood Pressure 91/52 L 10/30/18 05:00 O2 Sat by Pulse Oximetry (%) 98 10/29/18 21:00 Constitutional: No Distress, Calm Eyes: Yes: Conjunctiva Clear HENT: Yes: Atraumatic Cardiovascular: Yes: Regular Rate and Rhythm, Murmur Respiratory: Yes: Regular, CTA Bilaterally Gastrointestinal Inspection: Yes: WNL. No: Ascites, Distention, Hernia, Scars, Other ...Auscultate: Yes: Normoactive Bowel Sounds. No: Hyperactive Bowel Sounds, Hypoactive Bowel Sounds, No Bowel Sounds, Other ...Palpate: Yes: Soft, Other (non tender, non distended). No: Firm/Rigid, Guarding, Hepatomegaly, Mass, Pulsatile Mass, Splenomegaly, Tenderness, Tenderness, Epigastium, Tenderness, Rebound ...Percussion: Yes: Tympanitic. No: Dullness, Fluid Wave, Other Neurological: Yes: Alert, Oriented (to time and person) Labs: CBC, BMP 10/29/18 05:15 10/29/18 05:15 INR, PTT INR 1.38 (0.83-1.09) H 10/29/18 05:15 Problem List - Problems (1) Hepatic encephalopathy Assessment/Plan: mild, resolving >decrease Lactulose to 30cc BID Code(s): K72.90 - HEPATIC FAILURE, UNSPECIFIED WITHOUT COMA (2) Chronic liver disease and cirrhosis Assessment/Plan: >follow up as outpatient for repeat US every 6 months and AFP every 4 months Code(s): K74.60 - UNSPECIFIED CIRRHOSIS OF LIVER; K76.9 - LIVER DISEASE, UNSPECIFIED
[2018-10-30] MEDS: SPIRONOLACTONE 25 MG TABLET (FP) PO SCH (10:08)
[2018-10-30] MEDS: FUROSEMIDE 40 MG/4 ML INJECTABLE VIAL IVPUSH SCH (10:08)
[2018-10-30] MEDS: POTASSIUM CHLORIDE TABS 10 MEQ TABLET.ER (FP) PO SCH (10:09)
[2018-10-30] MEDS: HEPARIN NA (PORCINE) 5,000 UNITS/ML 1ML VIAL SQ SCH ×2 (10:09→21:48)
[2018-10-30] MEDS: metoPROLOL SUCCINATE 25 MG TAB.SR.24H (FP) PO SCH (10:10)
[2018-10-30] MEDS: RIFAXIMIN 550 MG TABLET (UD) PO SCH ×2 (10:10→21:48)
--- NOTE | 2018-10-30 11:18 | PN ---
Progress Note (short form) - Note Progress Note: PULMONARY Denies shortness of breath, cough or wheezing. Vital Signs Period Temp Pulse Resp BP Sys/Patel Pulse Ox Last 24 Hr 98 F-98.7 F 71-80 20-20 91-110/52-64 98 Gen: NAD at rest Heart: RRR, +systolic murmur Lung: decreased breath sounds at the bases Abd: soft, nontender Ext: + edema CBC, BMP 10/29/18 05:15 10/29/18 05:15 Active Medications Albuterol Sulfate (Ventolin 0.083% Nebulizer Soln -) 1 amp NEB Q6H PRN PRN Reason: SHORTNESS OF BREATH Furosemide (Lasix Injection -) 40 mg IVPUSH DAILY [facility] Last Admin: 10/30/18 10:08 Dose: 40 mg Heparin Sodium (Porcine) (Heparin -) 5,000 unit SQ BID [facility] Last Admin: 10/30/18 10:09 Dose: 5,000 unit Lactulose (Cephulac (Oral Use)) 30 gm PO BID [facility] Last Admin: 10/30/18 10:56 Dose: 30 gm Metoprolol Succinate (Toprol Xl -) 12.5 mg PO DAILY [facility] Last Admin: 10/30/18 10:10 Dose: 12.5 mg Oxycodone HCl (Roxicodone -) 5 mg PO Q6H PRN PRN Reason: PAIN LEVEL 6-10 Last Admin: 10/30/18 01:26 Dose: 5 mg Potassium Chloride (K-Dur -) 10 meq PO DAILY [facility] Last Admin: 10/30/18 10:09 Dose: 10 meq Rifaximin (Xifaxan -) 550 mg PO BID [facility] Last Admin: 10/30/18 10:10 Dose: 550 mg Spironolactone (Aldactone -) 25 mg PO DAILY [facility] Last Admin: 10/30/18 10:08 Dose: 25 mg A/P Altered Mental Status improving Hepatic Encephalopathy Liver Cirrhosis Thrombocytopenia COPD Chronic Bronchiectasis LV Diastolic Dysfunction HTN - continue lactulose - lasix, aldactone - inhaled bronchodilators as needed - O2 to keep SpO2 >90% - outpt f/u of chest imaging
--- NOTE | 2018-10-30 14:35 | PN ---
Progress Note, Physician Chief Complaint: AMS History of Present Illness: Previous notes and events reviewed awake and alert x 2 (self and location) NAD denies complaints of pain, chest pain SOB - Current Medication List Current Medications: Active Medications Albuterol Sulfate (Ventolin 0.083% Nebulizer Soln -) 1 amp NEB Q6H PRN PRN Reason: SHORTNESS OF BREATH Furosemide (Lasix Injection -) 40 mg IVPUSH DAILY [facility] Last Admin: 10/30/18 10:08 Dose: 40 mg Heparin Sodium (Porcine) (Heparin -) 5,000 unit SQ BID [facility] Last Admin: 10/30/18 10:09 Dose: 5,000 unit Lactulose (Cephulac (Oral Use)) 30 gm PO BID [facility] Last Admin: 10/30/18 10:56 Dose: 30 gm Metoprolol Succinate (Toprol Xl -) 12.5 mg PO DAILY [facility] Last Admin: 10/30/18 10:10 Dose: 12.5 mg Oxycodone HCl (Roxicodone -) 5 mg PO Q6H PRN PRN Reason: PAIN LEVEL 6-10 Last Admin: 10/30/18 01:26 Dose: 5 mg Potassium Chloride (K-Dur -) 10 meq PO DAILY [facility] Last Admin: 10/30/18 10:09 Dose: 10 meq Rifaximin (Xifaxan -) 550 mg PO BID [facility] Last Admin: 10/30/18 10:10 Dose: 550 mg Spironolactone (Aldactone -) 25 mg PO DAILY [facility] Last Admin: 10/30/18 10:08 Dose: 25 mg - Objective Vital Signs: Vital Signs Temperature 97.4 F L 10/30/18 13:46 Pulse Rate 73 10/30/18 13:46 Respiratory Rate 20 10/30/18 13:46 Blood Pressure 101/63 10/30/18 13:46 O2 Sat by Pulse Oximetry (%) 99 10/30/18 09:00 Constitutional: Yes: Well Nourished, No Distress, Calm Eyes: Yes: Conjunctiva Clear HENT: Yes: Atraumatic Cardiovascular: Yes: Regular Rate and Rhythm Respiratory: Yes: Regular, CTA Bilaterally Gastrointestinal: Yes: Normal Bowel Sounds, Soft, Other (non tender) Genitourinary: Yes: Incontinence Musculoskeletal: Yes: Muscle Weakness Extremities: Yes: WNL Edema: Yes Edema: LLE: Trace, RLE: 1+ Neurological: Yes: Alert, Pre-Existing Deficit Psychiatric: Yes: Alert, Oriented (self and location) Labs: CBC, BMP 10/29/18 05:15 10/29/18 05:15 INR, PTT INR 1.38 (0.83-1.09) H 10/29/18 05:15 Microbiology 10/28/18 12:15 Urine - Urine Clean Catch Urine Culture - Final NO GROWTH OBTAINED Problem List - Problems (1) Chronic liver disease and cirrhosis Assessment/Plan: -GI on board -continue to monitor LFTs -monitor ammonia level, current level 110.60 -if level continue to show downtrend return to SNF Code(s): K74.60 - UNSPECIFIED CIRRHOSIS OF LIVER; K76.9 - LIVER DISEASE, UNSPECIFIED (2) Hepatic encephalopathy Assessment/Plan: -continue with Lactulose BID -GI on board -monitor LFTs Code(s): K72.90 - HEPATIC FAILURE, UNSPECIFIED WITHOUT COMA (3) CHF (congestive heart failure) Assessment/Plan: -1L fluid restriction -continue with lasix IVP daily and spiriniloactone Code(s): I50.9 - HEART FAILURE, UNSPECIFIED (4) HTN (hypertension) Assessment/Plan: -continue with metoprolol Code(s): I10 - ESSENTIAL (PRIMARY) HYPERTENSION (5) Increased ammonia level Assessment/Plan: -ammonia level showing downtrend, currently 110.60, if tomorrow repeat ammonia show downtrend discharge back to SNF Code(s): R79.89 - OTHER SPECIFIED ABNORMAL FINDINGS OF BLOOD CHEMISTRY (6) Toxic metabolic encephalopathy Assessment/Plan: -2/2 to elevated ammonia level, UC negative -ammonia level down trend noted Code(s): G92 - TOXIC ENCEPHALOPATHY (7) Pleural effusion Assessment/Plan: -chest CT scan reviewed -continue with lasix daily Code(s): J90 - PLEURAL EFFUSION, NOT ELSEWHERE CLASSIFIED Assessment/Plan see problem list dvt ppx
[2018-10-31 07:20] LABS: HEMATOCRIT 29.6 % (32.4-45.2); MCHC 33.8 g/dl (32.0-36.0); MEAN CELL VOLUME 88.8 fl (80-96); PLATELET COUNT 50 K/MM3 (134-434); RBC 3.33 M/mm3 (3.60-5.2); RDW 15.7 % (11.6-15.6); WHITE BLOOD COUNT 4.5 K/mm3 (4.0-10.0)
[2018-10-31 07:53] LABS: ALK PHOS 100 U/L (45-117); ANION GAP 6 MMOL/L (8-16); BILIRUBIN,TOTAL 1.4 mg/dL (0.2-1); BLOOD UREA NITROGEN 12 mg/dL (7-18); CALCIUM 8.3 mg/dL (8.5-10.1); CHLORIDE 104 mmol/L (98-107); CO2 28 mmol/L (21-32); CREATININE 0.9 mg/dL (0.55-1.3); GLUCOSE,RANDOM 94 mg/dL (74-106); SGOT/AST 31 U/L (15-37); SGPT/ALT 21 U/L (13-61); SODIUM 137 mmol/L (136-145); TOT PROT 6.4 g/dl (6.4-8.2)
--- NOTE | 2018-10-31 08:39 | PN ---
GI Progress Note Subjective: Patient states feeling better. Current labs show LFTs in normal limits and ammonia level with downtrend. Denies abdominal pain, nausea, vomiting. - Objective Vital Signs: Vital Signs Temperature 97.7 F 10/31/18 06:15 Pulse Rate 66 10/31/18 06:15 Respiratory Rate 20 10/31/18 06:15 Blood Pressure 90/57 L 10/31/18 06:15 O2 Sat by Pulse Oximetry (%) 98 10/30/18 21:00 Constitutional: No Distress, Calm Eyes: Yes: Conjunctiva Clear HENT: Yes: Atraumatic Cardiovascular: Yes: Regular Rate and Rhythm Respiratory: Yes: Regular, CTA Bilaterally Gastrointestinal Inspection: Yes: WNL. No: Ascites, Distention, Hernia, Scars, Other ...Auscultate: Yes: Normoactive Bowel Sounds. No: Hyperactive Bowel Sounds, Hypoactive Bowel Sounds, No Bowel Sounds, Other ...Palpate: Yes: Soft, Other (non tender). No: Firm/Rigid, Guarding, Hepatomegaly, Mass, Pulsatile Mass, Splenomegaly, Tenderness, Tenderness, Epigastium, Tenderness, Rebound ...Percussion: Yes: Tympanitic. No: Dullness, Fluid Wave, Other Neurological: Yes: Alert, Pre-Existing Deficit Labs: CBC, BMP 10/31/18 06:25 10/31/18 06:25 INR, PTT INR 1.38 (0.83-1.09) H 10/29/18 05:15 Active Medications Generic Name Dose Route Start Last Admin Trade Name Freq PRN Reason Stop Dose Admin Albuterol Sulfate 1 amp 10/28/18 16:51 Ventolin 0.083% Nebulizer Soln - NEB Q6H PRN SHORTNESS OF BREATH Furosemide 40 mg 10/28/18 17:00 10/30/18 10:08 Lasix Injection - IVPUSH 40 mg DAILY [facility] Administration Heparin Sodium (Porcine) 5,000 unit 10/28/18 22:00 10/30/18 21:48 Heparin - SQ 5,000 unit BID [facility] Administration Lactulose 30 gm 10/30/18 10:00 10/30/18 21:48 Cephulac (Oral Use) PO Not Given BID [facility] Metoprolol Succinate 12.5 mg 10/29/18 10:00 10/30/18 10:10 Toprol Xl - PO 12.5 mg DAILY [facility] Administration Oxycodone HCl 5 mg 10/30/18 00:52 10/30/18 18:11 Roxicodone - PO 5 mg Q6H PRN Administration PAIN LEVEL 6-10 Potassium Chloride 10 meq 10/30/18 10:00 10/30/18 10:09 K-Dur - PO 10 meq DAILY [facility] Administration Rifaximin 550 mg 10/28/18 22:00 10/30/18 21:48 Xifaxan - PO 550 mg BID [facility] Administration Spironolactone 25 mg 10/29/18 10:00 10/30/18 10:08 Aldactone - PO 25 mg DAILY [facility] Administration Problem List - Problems (1) Hepatic encephalopathy Assessment/Plan: resolving >can start patient on Lactulose 30cc Code(s): K72.90 - HEPATIC FAILURE, UNSPECIFIED WITHOUT COMA (2) Chronic liver disease and cirrhosis Assessment/Plan: >follow up as outpatient for repeat US every 6 months and AFP every 4 months Code(s): K74.60 - UNSPECIFIED CIRRHOSIS OF LIVER; K76.9 - LIVER DISEASE, UNSPECIFIED
[2018-10-31] MEDS: HEPARIN NA (PORCINE) 5,000 UNITS/ML 1ML VIAL SQ SCH (09:43)
[2018-10-31] MEDS: SPIRONOLACTONE 25 MG TABLET (FP) PO SCH (09:43)
[2018-10-31] MEDS: RIFAXIMIN 550 MG TABLET (UD) PO SCH (09:43)
[2018-10-31] MEDS: POTASSIUM CHLORIDE TABS 10 MEQ TABLET.ER (FP) PO SCH (09:43)
[2018-10-31] MEDS: FUROSEMIDE 40 MG/4 ML INJECTABLE VIAL IVPUSH SCH (09:44)
[2018-10-31] MEDS: metoPROLOL SUCCINATE 25 MG TAB.SR.24H (FP) PO SCH (09:45)
--- NOTE | 2018-10-31 10:20 | PN ---
Progress Note (short form) - Note Progress Note: PULMONARY Denies shortness of breath, cough or wheezing. Vital Signs Period Temp Pulse Resp BP Sys/Patel Pulse Ox Last 24 Hr 97.4 F-98.3 F 66-84 20-20 90-111/57-75 98 Gen: NAD at rest Heart: RRR, +systolic murmur Lung: decreased breath sounds at the bases Abd: soft, nontender Ext: + edema CBC, BMP 10/31/18 06:25 10/31/18 06:25 Active Medications Albuterol Sulfate (Ventolin 0.083% Nebulizer Soln -) 1 amp NEB Q6H PRN PRN Reason: SHORTNESS OF BREATH Furosemide (Lasix Injection -) 40 mg IVPUSH DAILY [facility] Last Admin: 10/31/18 09:44 Dose: 40 mg Heparin Sodium (Porcine) (Heparin -) 5,000 unit SQ BID [facility] Last Admin: 10/31/18 09:43 Dose: 5,000 unit Lactulose (Cephulac (Oral Use)) 30 gm PO [facility] Metoprolol Succinate (Toprol Xl -) 12.5 mg PO DAILY [facility] Last Admin: 10/31/18 09:45 Dose: Not Given Oxycodone HCl (Roxicodone -) 5 mg PO Q6H PRN PRN Reason: PAIN LEVEL 6-10 Last Admin: 10/30/18 18:11 Dose: 5 mg Potassium Chloride (K-Dur -) 10 meq PO DAILY [facility] Last Admin: 10/31/18 09:43 Dose: 10 meq Rifaximin (Xifaxan -) 550 mg PO BID [facility] Last Admin: 10/31/18 09:43 Dose: 550 mg Spironolactone (Aldactone -) 25 mg PO DAILY [facility] Last Admin: 10/31/18 09:43 Dose: 25 mg A/P Altered Mental Status improving Hepatic Encephalopathy Liver Cirrhosis Thrombocytopenia COPD Chronic Bronchiectasis LV Diastolic Dysfunction HTN - continue lactulose - lasix, aldactone - inhaled bronchodilators as needed - O2 to keep SpO2 >90% - outpt f/u of chest imaging
--- NOTE | 2018-10-31 13:58 | DS ---
Physical Examination Vital Signs: Vital Signs Temperature 97.7 F 10/31/18 13:43 Pulse Rate 75 10/31/18 13:43 Respiratory Rate 20 10/31/18 13:43 Blood Pressure 100/56 L 10/31/18 13:43 O2 Sat by Pulse Oximetry (%) 96 10/31/18 09:00 Findings/Remarks: 73 year old female with a significant PMH of HTN, HLD, preserved EF CHF, cryptogenic cirrhosis, venous insufficiency who presents to the emergency department sent in by [facility] for generalized weakness and confusion since this morning. Patient is a poor historian and is unable to provide further information. Patient states that she has not been feeling well and has had a cough since last night." The halfway reports the patient ambulates with a rollator and is typically oriented x3. The [place] nurse went to check on the patient this morning, the patient did not recognize her and had generalized weakness which is abnormal for her. Constitutional: Yes: Well Nourished, No Distress, Calm Cardiovascular: Yes: Regular Rate and Rhythm Respiratory: Yes: Regular Gastrointestinal: Yes: Normal Bowel Sounds, Soft Musculoskeletal: Yes: Muscle Weakness Extremities: Yes: WNL Edema: No Peripheral Pulses WNL: Yes Neurological: Yes: Alert, Pre-Existing Deficit Psychiatric: Yes: Alert Labs: CBC, BMP 10/31/18 06:25 10/31/18 06:25 Discharge Summary Reason For Visit: TOXIC METABOLIC ENCEPHALOPATHY Current Active Problems Chronic liver disease and cirrhosis (Acute) Hepatic encephalopathy (Acute) Pleural effusion (Acute) Hospital Course: Laboratory Last Values WBC 4.5 K/mm3 (4.0-10.0) 10/31/18 06:25 RBC 3.33 M/mm3 (3.60-5.2) L 10/31/18 06:25 Hgb 10.0 GM/dL (10.7-15.3) L 10/31/18 06:25 Hct 29.6 % (32.4-45.2) L 10/31/18 06:25 MCV 88.8 fl (80-96) 10/31/18 06:25 MCH 30.0 pg (25.7-33.7) 10/31/18 06:25 MCHC 33.8 g/dl (32.0-36.0) 10/31/18 06:25 RDW 15.7 % (11.6-15.6) H 10/31/18 06:25 Plt Count 50 K/MM3 (134-434) L 10/31/18 06:25 MPV 10.0 fl (7.5-11.1) 10/31/18 06:25 Absolute Neuts (auto) 2.4 K/mm3 (1.5-8.0) 10/29/18 05:15 Neutrophils % 56.0 % (42.8-82.8) 10/29/18 05:15 Lymphocytes % 28.7 % (8-40) D 10/29/18 05:15 Monocytes % 12.3 % (3.8-10.2) H 10/29/18 05:15 Eosinophils % 2.2 % (0-4.5) 10/29/18 05:15 Basophils % 0.8 % (0-2.0) 10/29/18 05:15 Nucleated RBC % 0 % (0-0) 10/29/18 05:15 PT with INR 16.30 SEC (9.7-13.0) H 10/29/18 05:15 INR 1.38 (0.83-1.09) H 10/29/18 05:15 Sodium 137 mmol/L (136-145) 10/31/18 06:25 Potassium 4.0 mmol/L (3.5-5.1) 10/31/18 06:25 Chloride 104 mmol/L (98-107) 10/31/18 06:25 Carbon Dioxide 28 mmol/L (21-32) 10/31/18 06:25 Anion Gap 6 MMOL/L (8-16) L 10/31/18 06:25 BUN 12 mg/dL (7-18) 10/31/18 06:25 Creatinine 0.9 mg/dL (0.55-1.3) 10/31/18 06:25 Creat Clearance w eGFR > 60 (>60) 10/31/18 06:25 Random Glucose 94 mg/dL (74-106) 10/31/18 06:25 Calcium 8.3 mg/dL (8.5-10.1) L 10/31/18 06:25 Phosphorus 3.9 mg/dL (2.5-4.9) 10/29/18 05:15 Magnesium 1.9 mg/dL (1.8-2.4) 10/29/18 05:15 Total Bilirubin 1.4 mg/dL (0.2-1) H 10/31/18 06:25 AST 31 U/L (15-37) 10/31/18 06:25 ALT 21 U/L (13-61) 10/31/18 06:25 Alkaline Phosphatase 100 U/L (45-117) 10/31/18 06:25 Ammonia 75.70 umol/L (11-32) H 10/31/18 06:25 Troponin I 0.03 ng/ml (0.00-0.05) 10/29/18 05:15 B-Natriuretic Peptide 139.5 pg/ml (5-450) 10/28/18 12:14 Total Protein 6.4 g/dl (6.4-8.2) 10/31/18 06:25 Albumin 2.0 g/dl (3.4-5.0) L 10/31/18 06:25 Urine Color Ltyellow 10/28/18 12:15 Urine Appearance Clear 10/28/18 12:15 Urine pH 7.0 (5.0-8.0) D 10/28/18 12:15 Ur Specific Perry 1.005 (1.010-1.035) L 10/28/18 12:15 Urine Protein Negative (NEGATIVE) 10/28/18 12:15 Urine Glucose (UA) Negative (NEGATIVE) 10/28/18 12:15 Urine Ketones Negative (NEGATIVE) 10/28/18 12:15 Urine Blood Negative (NEGATIVE) 10/28/18 12:15 Urine Nitrite Negative (NEGATIVE) 10/28/18 12:15 Urine Bilirubin Negative (<2.0 mg/dL) 10/28/18 12:15 Urine Urobilinogen Negative mg/dL (0.2-1.0) 10/28/18 12:15 Ur Leukocyte Esterase Negative (NEGATIVE) 10/28/18 12:15 Microbiology 10/28/18 12:15 Urine - Urine Clean Catch Urine Culture - Final NO GROWTH OBTAINED Vital Signs Temp 97.7 F 10/31/18 13:43 Pulse 75 10/31/18 13:43 Resp 20 10/31/18 13:43 BP 100/56 L 10/31/18 13:43 Pulse Ox 96 10/31/18 09:00 Intake & Output 10/30/18 10/31/18 10/31/18 23:59 11:59 23:59 Intake Total 750 150 500 Balance 750 150 500 Weight 82.299 kg Intake: Oral 750 150 500 Other: Voiding Method Toilet Toilet Toilet # Unmeasured Voids Void 3 2 Bowel Movement Yes Yes # Bowel Movements 1 1 Weight Measurement Method Standing Scale Condition: Stable - Instructions Diet, Activity, Other Instructions: Follow up with Mario Hernandez MD as outpatient for repeat US every 6 months and AFP every 4 months Also, F/U with Dr Marina, for chest imaging Referrals: Mario Sanchez MD [Staff Physician] - Baljit Marina MD, MD [Staff Physician] - Disposition: RETIREMENT FACILITY - Home Medications Comprehensive Discharge Medication List: Ambulatory Orders Torsemide [Demadex -] 10 mg PO DAILY 06/04/18 Spironolactone [Aldactone] 25 mg PO DAILY 09/05/18 Potassium Chloride 10 meq PO DAILY #7 tab.er.prt MDD 1 09/11/18 Rifaximin [Xifaxan -] 550 mg PO BID #30 tablet MDD 2 09/11/18 Metoprolol Succinate [Toprol XL -] 12.5 mg PO DAILY tab.sr.24h 09/12/18 Albuterol 0.083% Nebulizer Stefani [Ventolin 0.083% Nebulizer Soln -] 1 neb NEB Q6H PRN 10/28/18
[2018-10-31 18:42] VITALS: BP 94/48; PULSE 73; TEMP 97.6
[2018-10-31] MEDS ORDERED: LACTULOSE 20 GM/30 ML UDC (FOR ORAL USE ONLY) PO SCH (22:00)
== END 2018-10-31 19:00 | DRG 442 ==
LOC: JER 11:34 → JERBED 14:42 → J7W 21:39
PROVIDERS: ADMIT Family Medicine; ATTEND Family Medicine
DX: K72.90 Hepatic failure, unspecified without coma (principal); R18.8 Other ascites; I42.2 Other hypertrophic cardiomyopathy; I50.30 Unspecified diastolic (congestive) heart failure; I11.0 Hypertensive heart disease with heart failure; E78.5 Hyperlipidemia, unspecified; D64.9 Anemia, unspecified; R62.7 Adult failure to thrive; R27.9 Unspecified lack of coordination; Z68.33 Body mass index [BMI] 33.0-33.9, adult; K21.9 Gastro-esophageal reflux disease without esophagitis; I87.2 Venous insufficiency (chronic) (peripheral); D69.6 Thrombocytopenia, unspecified; K74.69 Other cirrhosis of liver; J44.9 Chronic obstructive pulmonary disease, unspecified; R79.89 Other specified abnormal findings of blood chemistry; Z87.891 Personal history of nicotine dependence
CPT/HCPCS: 36415; 70450-TC; 71045-TC-FY; 71250-TC; 80053; 81003; 82140; 83735; 83880; 84100; 84484; 85025; 85027; 85610; 87086; 93005; 93010; 99285-25; J1644

== ENCOUNTER 2018-11-07 12:00 | Emergency (ER) | payer OTHER ==
[2018-11-07 12:29] VITALS: BMI 29.2
[2018-11-07 13:38] LABS: BASO % 1.4 % (0-2.0); EOS % 0.6 % (0-4.5); HEMATOCRIT 35.5 % (32.4-45.2); HEMOGLOBIN 11.9 GM/dL (10.7-15.3); MCH 29.9 pg (25.7-33.7); MCHC 33.5 g/dl (32.0-36.0); MEAN PLT VOLUME 10.8 fl (7.5-11.1); PLATELET COUNT 72 K/MM3 (134-434); RBC 3.99 M/mm3 (3.60-5.2); RDW 16.1 % (11.6-15.6); WHITE BLOOD COUNT 5.1 K/mm3 (4.0-10.0)
[2018-11-07 13:48] LABS: URINE APPEARANCE CLEAR; URINE BILIRUBIN NEGATIVE (<2.0 mg/dL); URINE COLOR LTYELLOW; URINE GLUCOSE (UA) NEGATIVE (NEGATIVE); URINE KETONE NEGATIVE (NEGATIVE); URINE LEUK ESTERASE 1+ (NEGATIVE); URINE NITRITE NEGATIVE (NEGATIVE); URINE PROTEIN NEGATIVE (NEGATIVE); URINE UROBILINOGEN NEGATIVE mg/dL (0.2-1.0)
--- NOTE | 2018-11-07 13:50 | PDOC ---
Attending Attestation - Resident Resident Name: Ning Flores - ED Attending Attestation I have performed the following: I have examined & evaluated the patient, The case was reviewed & discussed with the resident, I agree w/resident's findings & plan, Exceptions are as noted - HPI HPI: 11/07/18 13:47 73F h/o toxic metabolic encephalopathy, HTN, HLD, preserved EF CHF, cryptogenic cirrhosis, and venous insufficiency sent from [facility] who presents with altered mental status. As per AL, this morning pt did not recognize her nurse, who she sees every day. Per NH, no fevers recorded. Pt in ED has no complaints. Son, who is at bedside, states pt appears to be at her baseline. - Physicial Exam PE: 11/07/18 13:49 GENERAL: Awake, alert, in no acute distress. HEAD: No signs of trauma EYES: PERRLA, EOMI, sclera anicteric, conjunctiva clear ENT: Auricles normal inspection, hearing grossly normal, nares patent, oropharynx clear without exudates. Moist mucosa NECK: Nontender, no stepoffs, Normal ROM, supple, no lymphadenopathy, JVD, or masses LUNGS: Breath sounds equal, clear to auscultation bilaterally. No wheezes, and no crackles HEART: Regular rate and rhythm, normal S1 and S2, no murmurs, rubs or gallops ABDOMEN: Soft, nontender, normoactive bowel sounds. No guarding, no rebound. No masses EXTREMITIES: Normal range of motion, no edema. No clubbing or cyanosis. No cords, erythema, or tenderness NEUROLOGICAL: Cranial nerves II through XII intact. 5/5 strength and sensation in all extremities, Normal speech, normal gait, normal cerebellar function SKIN: Warm, Dry, normal turgor, no rashes or lesions noted. - Medical Decision Making 11/07/18 13:49 73 F sent to ED for AMS, though appears to be at baseline per son. Will check labs. - labs, ammonia - CT head - CXR, UA 11/07/18 15:03 Ammonia today 67, lower than previous value. Pt reassessed - is awake and alert, no sign of encephalopathy at this time.
[2018-11-07 14:00] LABS: INR 1.16 (0.83-1.09); PROTHROMBIN TIME (PATIENT) 13.7 SEC (9.7-13.0)
--- NOTE | 2018-11-07 14:00 | PDOC ---
History of Present Illness - General Chief Complaint: Altered Mental Status Stated Complaint: AMS Time Seen by Provider: 11/07/18 12:10 History Source: Family (son), Fdc Records - History of Present Illness Initial Comments: 11/07/18 14:00 *History obtained by Paty Brown at [facility] Pt is a 73yo F with PMH of Cirrhosis, Hepatic Encephalopathy, CHF, HTN, HLD, Venous Insufficiency BIBA from [facility] for altered mental status. Per OR, pt is not recognizing staff, forgetting names and hallucinating. She is usually AOx3 but is AOx1 today. Sh had a similar episode 10 days ago. She does not like taking lactulose so she was placed on rifaximin. Pt does not have any complaints and says she is here due to a fall she had a while back. She denies chest pain, headache, changes in vision, sob, abdominal pain, n/v/d, fevers, chills. PMD: Luke Camacho PMH: see hpi PSH: Meds: see med rec Allergies: nkda Past History - Past Medical History Allergies/Adverse Reactions: Allergies Allergy/AdvReac Type Severity Reaction Status Date / Time No Known Allergies Allergy Verified 11/07/18 12:08 Home Medications: Ambulatory Orders Torsemide [Demadex -] 10 mg PO DAILY 06/04/18 Spironolactone [Aldactone] 25 mg PO DAILY 09/05/18 Potassium Chloride 10 meq PO DAILY #7 tab.er.prt MDD 1 09/11/18 Rifaximin [Xifaxan -] 550 mg PO BID #30 tablet MDD 2 09/11/18 Metoprolol Succinate [Toprol XL -] 12.5 mg PO DAILY tab.sr.24h 09/12/18 Albuterol 0.083% Nebulizer Stefani [Ventolin 0.083% Nebulizer Soln -] 1 neb NEB Q6H PRN 10/28/18 Anemia: Yes Asthma: No Cancer: No Cardiac Disorders: Yes (HF) CVA: No COPD: No CHF: Yes Dementia: Yes Diabetes: No GI Disorders: Yes (gerd) Disorders: No HTN: Yes Hypercholesterolemia: Yes Liver Disease: Yes (CIRRHOSIS) Seizures: No Thyroid Disease: No - Surgical History Abdominal Surgery: No Appendectomy: No Cardiac Surgery: No Cholecystectomy: No Lung Surgery: No Neurologic Surgery: No Orthopedic Surgery: No - Immunization History Immunization Up to Date: Yes - Suicide/Smoking/Psychosocial Hx Smoking Status: No Smoking History: Never smoked Years of Tobacco Use: 10 Have you smoked in the past 12 months: No Number of Cigarettes Smoked Daily: 0 Hx Alcohol Use: No Drug/Substance Use Hx: No Substance Use Type: None Hx Substance Use Treatment: No Review of Systems - Review of Systems Constitutional: No: Chills, Fever HEENTM: No: Symptoms Reported Respiratory: No: Cough, Shortness of Breath Cardiac (ROS): No: Chest Pain, Lightheadedness, Palpitations, Syncope ABD/GI: No: Constipated, Diarrhea, Nausea, Vomiting : No: Burning, Dysuria Musculoskeletal: No: Back Pain, Joint Pain, Neck Pain Integumentary: No: Symptoms Reported Neurological: No: Headache, Numbness, Tingling *Physical Exam - Vital Signs Last Vital Signs Temp Pulse Resp BP Pulse Ox 95 H 16 130/70 98 11/07/18 12:11 11/07/18 12:11 11/07/18 12:11 11/07/18 12:11 - Physical Exam General Appearance: Yes: Appropriately Dressed, Obese. No: Apparent Distress HEENT: positive: EOMI, VICKY, Normal ENT Inspection Neck: positive: Trachea midline, Supple. negative: Carotid bruit, Lymphadenopathy (R), Lymphadenopathy (L) Respiratory/Chest: positive: Lungs Clear, Normal Breath Sounds. negative: Rhonchi, Stridor, Wheezing Cardiovascular: positive: Regular Rhythm, Regular Rate, Murmur (holosystolic murmur). negative: Edema, JVD Vascular Pulses: Carotid (R): 2+, Carotid (L): 2+, Dorsalis-Pedis (R): 2+, Doralis-Pedis (L): 2+ Gastrointestinal/Abdominal: positive: Normal Bowel Sounds, Soft. negative: Rebound, Tenderness, Hernia, Mass Musculoskeletal: negative: CVA Tenderness, Decreased Range of Motion Extremity: positive: Normal Capillary Refill Integumentary: positive: Normal Color, Dry, Warm Neurologic: positive: linen checker II-XII NML intact, Alert, Normal Mood/Affect, Normal Response, Motor Strength 5/5, Respond to painful stimul. negative: Fully Oriented (AOx1), Sensory Deficit Moderate Sedation - Procedure Monitoring Vital Signs: Procedure Monitoring Vital Signs Temperature Pulse Rate 95 H 11/07/18 12:11 Respiratory Rate 16 11/07/18 12:11 Blood Pressure 130/70 11/07/18 12:11 O2 Sat by Pulse Oximetry (%) 98 11/07/18 12:11 ED Treatment Course - LABORATORY CBC & Chemistry Diagram: 11/07/18 13:10 11/07/18 16:25 - ADDITIONAL ORDERS Additional order review: 11/07/18 13:10 RBC 3.99 MCV 89.0 MCHC 33.5 RDW 16.1 H MPV 10.8 Neutrophils % 66.0 Lymphocytes % 21.0 D Monocytes % 11.0 H Eosinophils % 0.6 Basophils % 1.4 - RADIOLOGY Radiology Studies Ordered: Category Date Time Status HEAD CT WITHOUT CONTRAST [CT] Stat CT Scan 11/07/18 12:43 Ordered CHEST X-RAY PORTABLE* [RAD] Stat Radiology 11/07/18 13:37 Ordered Medical Decision Making - Medical Decision Making Pt is a 73yo F with PMH of Cirrhosis, Hepatic Encephalopathy, CHF, HTN, HLD, Venous Insufficiency BIBA from [facility] for altered mental status. Per NH, pt is not recognizing staff, forgetting names and hallucinating. She is usually AOx3 but is AOx1 today. Sh had a similar episode 10 days ago. She does not like taking lactulose so she was placed on rifaximin. Pt does not have any complaints and says she is here due to a fall she had a while back. She denies chest pain, headache, changes in vision, sob, abdominal pain, n/v/d, fevers, chills. Vitals: wnl PE: following commands, normal neurological exam, asterixis 11/07/18 13:51 Labs wnl other than ammonia which is 67, down from 100s 10 days ago. 11/07/18 16:27 chem hemolyzed. sent new sample chemistries wnl. EKG- no melissa or depressions. plan to admit for ams. admitting team said that there is not much to do. Called NH who said they were expecting pt back. Pt is taking rifaximin for ammonia bc pt refuses to take lactulose. ammonia levels decreasing. Will send back to NH. Pt and family and NH agree with plan. *DC/Admit/Observation/Transfer Diagnosis at time of Disposition: Serum ammonia increased Altered mental status Qualifiers: Altered mental status type: disorientation Qualified Code(s): R41.0 - Disorientation, unspecified - Discharge Dispostion Disposition: [facility] FACILITY Condition at time of disposition: Good Decision to Admit order: No - Referrals - Patient Instructions - Post Discharge Activity
[2018-11-07 14:03] LABS: ACTIVATED PTT 35.8 SECONDS (25.2-36.5)
[2018-11-07 14:19] LABS: EPI CELLS RARE /HPF (FEW); URINE HYALINE CAST 5 /lpf
--- NOTE | 2018-11-07 15:37 | EKG ---
Test Reason : Blood Pressure : / mmHG Vent. Rate : 074 BPM Atrial Rate : 074 BPM P-R Int : 176 ms QRS Dur : 078 ms QT Int : 402 ms P-R-T Axes : 027 001 042 degrees QTc Int : 446 ms NORMAL SINUS RHYTHM WITH SINUS ARRHYTHMIA MODERATE VOLTAGE CRITERIA FOR LVH, MAY BE NORMAL VARIANT BORDERLINE ECG WHEN COMPARED WITH ECG OF 28-OCT-2018 11:50, NO SIGNIFICANT CHANGE WAS FOUND Confirmed by Jose Koch MD ([id number]) on 11/07/2018 3:37:37 PM Referred By: Confirmed By:Jose Koch MD
[2018-11-07 17:02] LABS: ALBUMIN 2.6 g/dl (3.4-5.0); ALK PHOS 127 U/L (45-117); ANION GAP 7 MMOL/L (8-16); BILIRUBIN,TOTAL 1.4 mg/dL (0.2-1); BLOOD UREA NITROGEN 21 mg/dL (7-18); CHLORIDE 105 mmol/L (98-107); CO2 26 mmol/L (21-32); CREATININE 1.1 mg/dL (0.55-1.3); GLUCOSE,RANDOM 84 mg/dL (74-106); SGOT/AST 40 U/L (15-37); SGPT/ALT 26 U/L (13-61); SODIUM 138 mmol/L (136-145); TOT PROT 7.9 g/dl (6.4-8.2)
[2018-11-07 17:10] VITALS: BP 120/77
[2018-11-07 17:11] VITALS: PULSE 82; TEMP 98.7
--- NOTE | 2018-11-07 22:58 | PDOC ---
*Physical Exam - Vital Signs Last Vital Signs Temp Pulse Resp BP Pulse Ox 98.7 F 82 22 H 120/77 100 11/07/18 17:08 11/07/18 17:08 11/07/18 17:08 11/07/18 17:08 11/07/18 17:08 ED Treatment Course - LABORATORY CBC & Chemistry Diagram: 11/07/18 13:10 11/07/18 16:25 - ADDITIONAL ORDERS Additional order review: Laboratory Results 11/07/18 11/07/18 11/07/18 16:25 16:25 13:26 PT with INR INR PTT (Actin FS) Sodium 138 Potassium 4.0 Chloride 105 Carbon Dioxide 26 Anion Gap 7 L BUN 21 H Creatinine 1.1 Creat Clearance w eGFR 48.42 Random Glucose 84 Calcium 9.0 Phosphorus Magnesium Total Bilirubin 1.4 H AST 40 H ALT 26 Alkaline Phosphatase 127 H Ammonia Troponin I < 0.02 Total Protein 7.9 Albumin 2.6 L Urine Color Ltyellow Urine Appearance Clear Urine pH 6.0 Ur Specific [place] 1.008 L Urine Protein Negative Urine Glucose (UA) Negative Urine Ketones Negative Urine Blood Negative Urine Nitrite Negative Urine Bilirubin Negative Urine Urobilinogen Negative Ur Leukocyte Esterase 1+ H Urine WBC (Auto) 3 Urine RBC (Auto) <1 Ur Epithelial Cells Rare Hyaline Casts 5 11/07/18 11/07/18 11/07/18 13:10 13:10 13:10 PT with INR 13.70 H INR 1.16 H PTT (Actin FS) 35.8 Sodium Cancelled Potassium Cancelled Chloride Cancelled Carbon Dioxide Cancelled Anion Gap Cancelled BUN Cancelled Creatinine Cancelled Creat Clearance w eGFR Cancelled Random Glucose Cancelled Calcium Cancelled Phosphorus Cancelled Magnesium Cancelled Total Bilirubin Cancelled AST Cancelled ALT Cancelled Alkaline Phosphatase Cancelled Ammonia 61.70 H Troponin I Cancelled Total Protein Cancelled Albumin Cancelled Urine Color Urine Appearance Urine pH Ur Specific [place] Urine Protein Urine Glucose (UA) Urine Ketones Urine Blood Urine Nitrite Urine Bilirubin Urine Urobilinogen Ur Leukocyte Esterase Urine WBC (Auto) Urine RBC (Auto) Ur Epithelial Cells Hyaline Casts 11/07/18 13:10 RBC 3.99 MCV 89.0 MCHC 33.5 RDW 16.1 H MPV 10.8 Neutrophils % 66.0 Lymphocytes % 21.0 D Monocytes % 11.0 H Eosinophils % 0.6 Basophils % 1.4 - RADIOLOGY Radiology Studies Ordered: Category Date Time Status HEAD CT WITHOUT CONTRAST [CT] Stat CT Scan 11/07/18 12:43 Completed CHEST X-RAY PORTABLE* [RAD] Stat Radiology 11/07/18 13:37 Taken Medical Decision Making - Medical Decision Making 11/07/18 22:58 This note was created to change the disposition. No changes to prior note. Thank you *DC/Admit/Observation/Transfer Diagnosis at time of Disposition: Serum ammonia increased Altered mental status Qualifiers: Altered mental status type: disorientation Qualified Code(s): R41.0 - Disorientation, unspecified - Discharge Dispostion Disposition: [facility] Condition at time of disposition: Good Decision to Admit order: No - Referrals - Patient Instructions - Post Discharge Activity
== END 2018-11-08 00:05 ==
LOC: JER 12:00 → UNDOADMOB 17:20 → JERBED 17:20
DX: R41.0 Disorientation, unspecified (principal); E72.20 Disorder of urea cycle metabolism, unspecified; I10 Essential (primary) hypertension; E78.5 Hyperlipidemia, unspecified; K74.60 Unspecified cirrhosis of liver; G93.40 Encephalopathy, unspecified; I50.9 Heart failure, unspecified
CPT/HCPCS: 36415; 70450-TC; 71045-TC-FY; 80053; 81003; 81015; 82140; 84484; 85025; 85610; 85730; 87086; 93005; 93010; 99282-25

== ENCOUNTER 2018-11-15 15:12 | Inpatient (IN) | payer OTHER ==
--- NOTE | 2018-11-15 17:47 | PDOC ---
History of Present Illness - General Chief Complaint: Altered Mental Status Stated Complaint: ALTERED MENTAL STATUS Time Seen by Provider: 11/15/18 16:48 History Source: Patient Exam Limitations: Clinical Condition, Unresponsive - History of Present Illness Initial Comments: 73F h/o toxic metabolic encephalopathy, HTN, HLD, preserved EF CHF, cryptogenic cirrhosis, and venous insufficiency sent from [facility] who presents with altered mental status. She is non-verbal at bedside and not responding to questions. She does not know where she is, what day it is, or when her birthday is. The long-term sent her into the ER because they observed that she had a change in mental status from her baseline. PCP: Luke Camacho Allergies: NKA, NKDA Social Hx: Resident of [employer]. Denies smoking, drinking, or other substance usage. Past History - Past Medical History Allergies/Adverse Reactions: Allergies Allergy/AdvReac Type Severity Reaction Status Date / Time No Known Allergies Allergy Verified 11/07/18 12:08 Home Medications: Ambulatory Orders Torsemide [Demadex -] 10 mg PO DAILY 06/04/18 Spironolactone [Aldactone] 25 mg PO DAILY 09/05/18 Potassium Chloride 10 meq PO DAILY #7 tab.er.prt MDD 1 09/11/18 Rifaximin [Xifaxan -] 550 mg PO BID #30 tablet MDD 2 09/11/18 Metoprolol Succinate [Toprol XL -] 12.5 mg PO DAILY tab.sr.24h 09/12/18 Albuterol 0.083% Nebulizer Stefani [Ventolin 0.083% Nebulizer Soln -] 1 neb NEB Q6H PRN 10/28/18 Anemia: Yes Asthma: No Cancer: No Cardiac Disorders: Yes (HF) CVA: No COPD: No CHF: Yes Dementia: Yes Diabetes: No GI Disorders: Yes (gerd) Disorders: No HTN: Yes Hypercholesterolemia: Yes Liver Disease: Yes (CIRRHOSIS) Seizures: No Thyroid Disease: No - Surgical History Abdominal Surgery: No Appendectomy: No Cardiac Surgery: No Cholecystectomy: No Lung Surgery: No Neurologic Surgery: No Orthopedic Surgery: No - Immunization History Immunization Up to Date: Yes - Suicide/Smoking/Psychosocial Hx Smoking Status: No Smoking History: Never smoked Years of Tobacco Use: 10 Have you smoked in the past 12 months: No Number of Cigarettes Smoked Daily: 0 Information on smoking cessation initiated: No Hx Alcohol Use: No Drug/Substance Use Hx: No Substance Use Type: None Hx Substance Use Treatment: No Review of Systems - Review of Systems Able to Perform ROS?: No (AMS) *Physical Exam - Vital Signs Last Vital Signs Temp Pulse Resp BP Pulse Ox 97.8 F 90 18 109/70 99 11/15/18 15:33 11/15/18 15:33 11/15/18 15:33 11/15/18 15:33 11/15/18 15:33 - Physical Exam Comments: GENERAL: Well-appearing, well-nourished. No apparent distress. HEENT: Normocephalic, atraumatic. PERRL, EOM intact. CARDIOVASCULAR: Holosystolic blowing murmur most prominent in the aortic region. Regular rate and rhythm. PULMONARY: No evidence of respiratory distress. Lungs clear to auscultation bilaterally. No wheezing, rales or rhonchi. ABDOMEN: Soft, non-distended, non-tender. EXTREMITIES: Normal ROM in all four extremities. No gross deformities. SKIN: Warm, dry. No rash NEUROLOGICAL: No focal neurological deficits. ED Treatment Course - LABORATORY CBC & Chemistry Diagram: 11/15/18 16:13 11/15/18 16:13 Medical Decision Making - Medical Decision Making 73F h/o toxic metabolic encephalopathy, HTN, HLD, preserved EF CHF, cryptogenic cirrhosis, and venous insufficiency sent from [facility] who presents with altered mental status. She is non-verbal at bedside and not responding to questions. She does not know where she is, what day it is, or when her birthday is. The long-term sent her into the ER because they observed that she had a change in mental status from her baseline. VS: WNL, afebrile rectally. DDx IBNLT: UTI, brain bleed, arrhythmia, ACS/DC, delerium vs dementia, electrolyte/metabolic derangement. Plan: Labs, Urine, CXR, EKG, Head CT, ammonia, re-assess. Ammonia is elevated - giving patient lactulose. BUN and CK also elevated - giving gentle hydration Urine shows clear cut UTI which is likely the source of her uti- will start treatment in ED and then admit for further care. *DC/Admit/Observation/Transfer Diagnosis at time of Disposition: UTI (urinary tract infection), Delirium, Hepatic encephalopathy, Toxic metabolic encephalopathy - Discharge Dispostion Condition at time of disposition: Guarded Decision to Admit order: Yes - Referrals - Patient Instructions - Post Discharge Activity
--- NOTE | 2018-11-15 18:09 | PDOC ---
Attending Attestation - HPI HPI: 11/15/18 18:32 The patient is a 73 year old female with a past medical history of toxic metabolic encephalopathy, HTN, HLD, CHF, cryptogenic cirrhosis, and venous insufficiency here today from [facility] for evaluation of AMS. Patient is unable to answer questions and only answers yes doctor to questions. Allergies: NKA PCP: Kristin Camacho - Physicial Exam PE: 11/15/18 18:32 Constitutional: Awake and arousable to voice. Only answers yes doctor to questions. No acute distress. Head: Normocephalic. Atraumatic Eyes: +icteric eyes. PERRL. EOMI. ENT: +Mucous membranes are dry. +cracked lips. Posterior pharynx without exudates or erythema. Uvula midline. Neck: Supple. Full ROM. No lymphadenopathy. Cardiovascular: +systolic ejection murmur. Regular rate. Regular rhythm. S1, S2 regular. Distal pulses are 2+ and symmetric. Pulmonary/Chest: +poor inspiratory effort. No evidence of respiratory distress. Clear to auscultation bilaterally No wheezing, rales or rhonchi. Abdominal: Soft and non-distended. There is no tenderness. No rebound, guarding or rigidity. No organomegaly. No palpable masses. Good bowel sounds. Back: No CVA tenderness. Musculoskeletal: No edema. No cyanosis. No clubbing. Full range of motion in all extremities. No calf tenderness. Radial/pedal pulses are intact and 2+ bilaterally Skin: Skin is warm and dry. No petechiae. No purpura. Neurological: Alert. Negative Babinskis. Cranial nerves II-XII are grossly intact. Strength is grossly symmetric. No sensory deficits. Psychiatric: Good eye contact. Normal interaction, affect and behavior. <Remi Rajan - Last Filed: 11/15/18 18:32> - Resident Resident Name: Stan De La Cruz - ED Attending Attestation I have performed the following: I have examined & evaluated the patient, The case was reviewed & discussed with the resident, I agree w/resident's findings & plan, Exceptions are as noted - Medical Decision Making 11/15/18 18:09 I, Dr. Michelle Ibrahim, DO, attest that this document has been prepared under my direction and personally reviewed by me in its entirety. I further attest, that it accurately reflects all work, treatment, procedures and medical decision -making performed by me. 11/15/18 18:26 a/p: 73yo female with altered ms from ECF -pt is a poor historian and cannot provide any hx -pt responds to simple commands and verbal stimuli but cannot verbalize why she is here, responds "yes, doctor" to all questions -hx of elevated ammonia -hx of ams -will send labs, head ct, ua, ucx, straight, cath, ekg -will need admission 11/15/18 19:02 ammonia 129- will add lactulose pt will need admission labs pending cxr unchanged from prior 11/15/18 20:04 case discussed with [facility] pmd Dr. Kristin Camacho who admits to [facility] uti on labs- will start rocephin- no prior + cultures pt with uti and hepatic encephalopathy with elevated ammonia- toxic metabolic encephalopathy 11/15/18 20:06 no acute findings on cxr or head ct <Michelle Ibrahim - Last Filed: 11/15/18 20:09> *DC/Admit/Observation/Transfer - Discharge Dispostion Decision to Admit order: Yes <Michelle Ibrahim - Last Filed: 11/15/18 20:09> Diagnosis at time of Disposition: UTI (urinary tract infection), Delirium, Hepatic encephalopathy, Toxic metabolic encephalopathy - Discharge Dispostion Condition at time of disposition: Guarded - Referrals Referrals: Kristin Camacho MD [Primary Care Provider] - - Patient Instructions - Post Discharge Activity Heart Score/ECG Review - ECG Intrepretation Comment:: 11/15/18 18:30 sinus at 80, nl axis, nl interval, no acute st/t wave findings <Michelle Ibrahim - Last Filed: 11/15/18 20:09> Attestations - Attestations 11/15/18 18:33 Documentation prepared by ROXANA Jane, acting as medical physics researcher for Michelle Ibrahim DO. <Remi Rajan - Last Filed: 11/15/18 18:32>
[2018-11-15 18:35] LABS: BASO % 1.1 % (0-2.0); EOS % 0.6 % (0-4.5); HEMATOCRIT 35.3 % (32.4-45.2); HEMOGLOBIN 11.5 GM/dL (10.7-15.3); LYMPH % 20.5 % (8-40); MCH 28.9 pg (25.7-33.7); MCHC 32.5 g/dl (32.0-36.0); MEAN CELL VOLUME 88.9 fl (80-96); MEAN PLT VOLUME 11.2 fl (7.5-11.1); MONO % 9.9 % (3.8-10.2); NEUT % 67.9 % (42.8-82.8); PLATELET COUNT 72 K/MM3 (134-434); RBC 3.97 M/mm3 (3.60-5.2); RDW 15.2 % (11.6-15.6); WHITE BLOOD COUNT 6.2 K/mm3 (4.0-10.0)
[2018-11-15] MEDS ORDERED: LACTULOSE 20 GM/30 ML UDC (FOR ORAL USE ONLY) PO ONE (19:01)
[2018-11-15 19:02] LABS: ALBUMIN 2.6 g/dl (3.4-5.0); ALK PHOS 110 U/L (45-117); ANION GAP 8 MMOL/L (8-16); BILIRUBIN,TOTAL 1.5 mg/dL (0.2-1); BLOOD UREA NITROGEN 23 mg/dL (7-18); CALCIUM 9.1 mg/dL (8.5-10.1); CHLORIDE 108 mmol/L (98-107); CO2 24 mmol/L (21-32); GLUCOSE,RANDOM 81 mg/dL (74-106); INR 1.24 (0.83-1.09); POTASSIUM 4.5 mmol/L (3.5-5.1); PROTHROMBIN TIME (PATIENT) 14.7 SEC (9.7-13.0); SGOT/AST 67 U/L (15-37); SGPT/ALT 29 U/L (13-61); SODIUM 140 mmol/L (136-145); TOT PROT 7.8 g/dl (6.4-8.2)
[2018-11-15 19:03] LABS: EPI CELLS 1.4 /HPF (0-5); HYALINE CASTS 12 /hpf (0-8); PH,URINE 6.5 (5.0-8.0); URINE APPEARANCE TURBID; URINE BACTERIA 2338.7 /hpf (NEGATIVE); URINE BILIRUBIN NEGATIVE (NEGATIVE); URINE COLOR DK YELLOW; URINE GLUCOSE (UA) NEGATIVE (NEGATIVE); URINE KETONE NEGATIVE (NEGATIVE); URINE LEUK ESTERASE 3+ (NEGATIVE); URINE NITRITE POSITIVE (NEGATIVE); URINE PROTEIN TRACE (NEGATIVE); URINE WBC 2226 /hpf (0-5)
[2018-11-15] MEDS ORDERED: SODIUM CHLORIDE 0.9% 1000 ML INFUS.BAG IV ONE (19:03)
--- NOTE | 2018-11-15 19:46 | HP ---
CHIEF COMPLAINT:AMS PCP: long-term papers mention DIVYA Camacho , Insurance card mentioned Dr Gatito rajput HISTORY OF PRESENT ILLNESS: Patient is a 73 year old woman with PMH of hepatic encephalopathy, HTN, HLD, preserved EF CHF, cryptogenic cirrhosis, and venous insufficiency sent from [facility] with altered mental status. She is non-verbal at bedside and not responding to questions. She does not know where she is, what day it is, or when her birthday is. The long-term sent her into the ER because they observed that she had a change in mental status from her baseline. On 11/07/18 she was sent to the ER from the for AMS - [place] staff said at that time that she is "not recognizing staff, forgetting names and hallucinating". She was reported at that time to be usually oriented X 3 but was oriented only yo person on that day. She reported had a similar episode 10 days prior to . [place] staff reports that she does not like taking lactulose so she was placed on Rifaximin. It is unclear how compliant she was with the Rifaximin. ER course was notable for: (1)Ammonia 129 (2)cbc, cmp (3)Head CT Recent Travel: denies PAST MEDICAL HISTORY: as per HPI PAST SURGICAL HISTORY: none Social History: Smoking:denies Alcohol:denies Drugs: denies Family History: None Allergies No Known Allergies Allergy (Verified 11/07/18 12:08) HOME MEDICATIONS: Home Medications Medication Instructions Recorded Torsemide [Demadex -] 10 mg PO DAILY 06/04/18 Spironolactone [Aldactone] 25 mg PO DAILY 09/05/18 Potassium Chloride 10 meq PO DAILY #7 tab.er.prt MDD 1 09/11/18 Rifaximin [Xifaxan -] 550 mg PO BID #30 tablet MDD 2 09/11/18 Metoprolol Succinate [Toprol XL -] 12.5 mg PO DAILY tab.sr.24h 09/12/18 Albuterol 0.083% Nebulizer Stefani 1 neb NEB Q6H PRN 10/28/18 [Ventolin 0.083% Nebulizer Soln -] REVIEW OF SYSTEMS not able to obtain PHYSICAL EXAMINATION Vital Signs - 24 hr 11/15/18 15:33 Temperature 97.8 F Pulse Rate 90 Respiratory 18 Rate Blood Pressure 109/70 O2 Sat by Pulse 99 Oximetry (%) GENERAL: AAOx0 in NAD, follow commands , HEAD: NC/AT EYES: EOMI, Conjunctiva clear, sclera anicteric ENT: moist mucous membrane NECK: Supple, no JVD LUNGS: CTA B/L, no crackles no wheezing no accessory muscle use. HEART: RRR, NSR, normal s1, s2, 5/6 systolic murmur ABDOMEN: Soft, ND, NT, +BS 4 Q, no CVA Tenderness LOWER EXTREMITIES: no edema, +2DP pulse, NEUROLOGICAL: No focal deficit. PSYCHIATRIC: Cooperative. Good eye contact. Appropriate mood and affect. SKIN: Warm, dry, Laboratory Results - last 24 hr 11/15/18 11/15/18 11/15/18 16:13 16:13 16:13 WBC 6.2 RBC 3.97 Hgb 11.5 Hct 35.3 MCV 88.9 MCH 28.9 MCHC 32.5 RDW 15.2 Plt Count 72 L MPV 11.2 H Absolute Neuts (auto) 4.2 Neutrophils % 67.9 Lymphocytes % 20.5 Monocytes % 9.9 Eosinophils % 0.6 Basophils % 1.1 Nucleated RBC % 0 PT with INR 14.70 H INR 1.24 H PTT (Actin FS) Sodium 140 Potassium 4.5 Chloride 108 H Carbon Dioxide 24 Anion Gap 8 BUN 23 H Creatinine 1.0 Creat Clearance w eGFR 54.05 Random Glucose 81 Calcium 9.1 Total Bilirubin 1.5 H AST 67 H ALT 29 Alkaline Phosphatase 110 Ammonia Creatine Kinase 519 H Creatine Kinase Index 0.9 CK-MB (CK-2) 4.8 H Troponin I 0.03 Total Protein 7.8 Albumin 2.6 L 11/15/18 11/15/18 16:13 16:13 WBC RBC Hgb Hct MCV MCH MCHC RDW Plt Count MPV Absolute Neuts (auto) Neutrophils % Lymphocytes % Monocytes % Eosinophils % Basophils % Nucleated RBC % PT with INR INR PTT (Actin FS) 40.5 H Sodium Potassium Chloride Carbon Dioxide Anion Gap BUN Creatinine Creat Clearance w eGFR Random Glucose Calcium Total Bilirubin AST ALT Alkaline Phosphatase Ammonia 129.80 H Creatine Kinase Creatine Kinase Index CK-MB (CK-2) Troponin I Total Protein Albumin CBC, BMP 11/15/18 16:13 11/15/18 16:13 ASSESSMENT/PLAN: Patient is a 73 year old woman with PMH of hepatic encephalopathy, HTN, HLD, preserved EF CHF, cryptogenic cirrhosis, and venous insufficiency sent from [facility] with altered mental status. # Acute metabolil encephalopathy worsening due to elevated ammonia(cirrhosis ) vs UTI * Ammonia 139 * Lactulose 20 QID till she have BM and then trend * Cont Rifaximin * repeat ammonia * Zosyn for UTI , given ceftriaxone once in ED * gentle hydration * monitor lytes # Thrombocytopenia * no active bleeding * avoid heparin * trend daily # HTN on spirnolactone, demadex, toprol xl 12.5 D continue # HLD # DCHF * resume home meds * repeat echo as last one in 2017 # FEN * NS @ 42 CC/hr * Monitor lytes * Low NA diet # proph * SCDS , avoid hep * GI: no need for now # Dispo * M/S Visit type - Emergency Visit Emergency Visit: Yes ED Registration Date: 11/15/18 Care time: The patient presented to the Emergency Department on the above date and was hospitalized for further evaluation of their emergent condition. - New Patient This patient is new to me today: Yes Date on this admission: 11/15/18 - Critical Care Critical Care patient: No
[2018-11-15 19:51] LABS: URINE RBC 47 /hpf (0-4); YEAST NONE SEEN (NEGATIVE)
[2018-11-15] MEDS ORDERED: CEFTRIAXONE 1 GM in DEXTROSE 5%-WATER - 100 ML IVPB ONE (20:04)
[2018-11-15] MEDS ORDERED: LACTULOSE 20 GM/30 ML UDC (FOR ORAL USE ONLY) ONE (20:23)
[2018-11-15] MEDS ORDERED: CEFTRIAXONE 1 GM/50 ML BAG ONE (20:24)
--- NOTE | 2018-11-15 21:03 | PN ---
Teaching Attending Note Name of Resident: Epifanio Khan ATTENDING PHYSICIAN STATEMENT I saw and evaluated the patient. I reviewed the resident's note and discussed the case with the resident. I agree with the resident's findings and plan as documented. SUBJECTIVE: Patient is a 73 year old woman with PMH of hepatic encephalopathy, HTN, HLD, preserved EF CHF, cryptogenic cirrhosis, and venous insufficiency sent from [facility] with altered mental status. She is non-verbal at bedside and not responding to questions. She does not know where she is, what day it is, or when her birthday is. The long term sent her into the ER because they observed that she had a change in mental status from her baseline. On 11/07/18 she was sent to the ER from the [facility] - [place] staff said at that time that she is "not recognizing staff, forgetting names and hallucinating". She was reported at that time to be usually oriented X 3 but was oriented only yo person on that day. She reported had a similar episode 10 days prior to . [place] staff reports that she does not like taking lactulose so she was placed on Rifaximin. It is unclear how compliant she was with the Rifaximin. OBJECTIVE: Somnolent but aousable Vital Signs Period Temp Pulse Resp BP Sys/Patel Pulse Ox Last 24 Hr 97.8 F 90 18 109/70 99 HEENT: +Jaundice, eye redness or discharge, dry oral mucous membrane, cracked lips, PERRLA, EOMI. Normocephalic, atraumatic. External ears are normal and hearing is grossly intact. No nasal discharge. Neck: Supple, nontender. No palpable adenopathy or thyromegaly. No JVD Chest: Good effort. Clear to auscultation and percussion. Heart: Regular. No S3 or rub; 3/6 QUINCY Abdomen: Not distended, soft, nontender and no HSM. No rebound or guarding. Normal bowel sounds. Ext: Peripheral pulses intact. No leg edema. Skin: Warm and dry. No petechiae, rash or ecchymosis. Neuro: Somnolent but arousable. Not oriented x 3. Sluggishly follows some simple commands. CN 2-12 grossly intact. Sensation grossly intact in all four extremities and DTR are symmetric. No tremors or asterexis. Psych: Appropriate mood and affect. Home Medications Medication Instructions Recorded Torsemide [Demadex -] 10 mg PO DAILY 06/04/18 Spironolactone [Aldactone] 25 mg PO DAILY 09/05/18 Potassium Chloride 10 meq PO DAILY #7 tab.er.prt MDD 1 09/11/18 Rifaximin [Xifaxan -] 550 mg PO BID #30 tablet MDD 2 09/11/18 Metoprolol Succinate [Toprol XL -] 12.5 mg PO DAILY tab.sr.24h 09/12/18 Albuterol 0.083% Nebulizer Stefani 1 neb NEB Q6H PRN 10/28/18 [Ventolin 0.083% Nebulizer Soln -] Abnormal Lab Results 11/15/18 11/15/18 11/15/18 16:13 16:13 16:13 Plt Count 72 L MPV 11.2 H PT with INR 14.70 H INR 1.24 H PTT (Actin FS) Chloride 108 H BUN 23 H Total Bilirubin 1.5 H AST 67 H Ammonia Creatine Kinase 519 H CK-MB (CK-2) 4.8 H Albumin 2.6 L Urine Blood Urine Nitrite Ur Leukocyte Esterase 11/15/18 11/15/18 11/15/18 16:13 16:13 18:43 Plt Count MPV PT with INR INR PTT (Actin FS) 40.5 H Chloride BUN Total Bilirubin AST Ammonia 129.80 H Creatine Kinase CK-MB (CK-2) Albumin Urine Blood 2+ H Urine Nitrite Positive H Ur Leukocyte Esterase 3+ H ASSESSMENT AND PLAN: 1. Hepatic encephalopathy/healthcare-associated UTI - No acute pathology on head CT or CXR. Encephalopathy likely partly precipitated by UTI. Will treat with Zosyn, IV NS, Lactulose and Rifaximin. Monitor electrolytes, LFTs and platelets and ensure adequate nutritional support. 2. Hypoalbuminemia - Possibly due to combined effects of malnutrition and inflammation associated with comorbid chronic conditions. Will ensure adequate dietary protein intake and also consult remarketing manager. 3. Obesity Counseled on the risks associated with obesity. Will provide patient all the necessary assistance, counseling and positive reinforcement to facilitate weight loss. Consult remarketing manager. 4. DVT prophylaxis - SCDs, TEDs. May start Heparin 5000u sq tid once platelet count rises above 100,000. 5. Advance directives - Full code
[2018-11-15] MEDS ORDERED: ALBUTEROL SO4 0.083% IH SOL 2.5 MG/3 ML VIAL.NEB. NEB PRN (21:42)
[2018-11-15] MEDS ORDERED: SODIUM CHLORIDE 1,000 ML IV SCH (21:45)
[2018-11-15] MEDS ORDERED: LACTULOSE 20 GM/30 ML UDC (FOR ORAL USE ONLY) PO PRN (21:49)
[2018-11-15 23:02] VITALS: BMI 30.7
[2018-11-15] MEDS: RIFAXIMIN 550 MG TABLET (UD) PO SCH (23:59)
[2018-11-16] MEDS ORDERED: HEPARIN NA (PORCINE) 5,000 UNITS/ML 1ML VIAL SQ SCH (06:00)
[2018-11-16 08:08] LABS: EOS % 2.4 % (0-4.5); HEMATOCRIT 32.4 % (32.4-45.2); HEMOGLOBIN 10.4 GM/dL (10.7-15.3); LYMPH % 22.6 % (8-40); MCH 28.6 pg (25.7-33.7); MCHC 32.1 g/dl (32.0-36.0); MONO % 12.2 % (3.8-10.2); NEUT % 61.8 % (42.8-82.8); PLATELET COUNT 57 K/MM3 (134-434); RBC 3.65 M/mm3 (3.60-5.2); RDW 15.4 % (11.6-15.6); WHITE BLOOD COUNT 4.3 K/mm3 (4.0-10.0)
[2018-11-16 08:15] LABS: INR 1.25 (0.83-1.09); PROTHROMBIN TIME (PATIENT) 14.8 SEC (9.7-13.0)
[2018-11-16 08:26] LABS: ALBUMIN 2.3 g/dl (3.4-5.0); ALK PHOS 87 U/L (45-117); ANION GAP 8 MMOL/L (8-16); BILIRUBIN,TOTAL 1.5 mg/dL (0.2-1); BLOOD UREA NITROGEN 21 mg/dL (7-18); CALCIUM 8.8 mg/dL (8.5-10.1); CHLORIDE 112 mmol/L (98-107); CO2 24 mmol/L (21-32); CREATININE 0.9 mg/dL (0.55-1.3); GLUCOSE,RANDOM 64 mg/dL (74-106); MAGNESIUM 1.8 mg/dL (1.8-2.4); N-TERMINAL BNP 286.7 pg/ml (5-450); PHOSPHOROUS 3.3 mg/dL (2.5-4.9); POTASSIUM 3.9 mmol/L (3.5-5.1); SGOT/AST 50 U/L (15-37); SGPT/ALT 26 U/L (13-61); SODIUM 143 mmol/L (136-145)
[2018-11-16] MEDS ORDERED: PIPERACILLIN/TAZOBACTAM 2.25 GM VIAL IVPB ONE ×2 (10:00→18:15)
[2018-11-16] MEDS ORDERED: DEXTROSE 5%-WATER - 50 ML IVPB ONE ×2 (10:00→18:15)
[2018-11-16] MEDS ORDERED: CEFTRIAXONE 1 GM in DEXTROSE 5%-WATER - 50 ML IVPB SCH (10:00)
[2018-11-16] MEDS: RIFAXIMIN 550 MG TABLET (UD) PO SCH ×2 (10:25→21:25)
[2018-11-16] MEDS: PIPERACILLIN/TAZOB 2.25 GM 2.25 GM in DEXTROSE 5%-WATER - 50 ML IVPB SCH ×2 (10:26→18:55)
[2018-11-16] MEDS: POTASSIUM CHLORIDE TABS 10 MEQ TABLET.ER (FP) PO SCH (10:26)
--- NOTE | 2018-11-16 11:49 | EKG ---
Test Reason : Blood Pressure : / mmHG Vent. Rate : 080 BPM Atrial Rate : 080 BPM P-R Int : 182 ms QRS Dur : 080 ms QT Int : 396 ms P-R-T Axes : 027 000 051 degrees QTc Int : 456 ms NORMAL SINUS RHYTHM MINIMAL VOLTAGE CRITERIA FOR LVH, MAY BE NORMAL VARIANT SEPTAL INFARCT , AGE UNDETERMINED ABNORMAL ECG WHEN COMPARED WITH ECG OF 07-NOV-2018 12:17, SEPTAL INFARCT IS NOW PRESENT Confirmed by YAMILA MATHEWS, ALBAN ([id number]) on 11/16/2018 11:49:35 AM Referred By: Confirmed By:ALBAN DRISCOLL MD
--- NOTE | 2018-11-16 12:48 | PN ---
Progress Note, Physician Chief Complaint: AMS UTI Hepatic Encephalopathy History of Present Illness: Previous notes and events reviewed awake and alert NAD no complaints of pain verbalized - Current Medication List Current Medications: Active Medications Albuterol Sulfate (Ventolin 0.083% Nebulizer Soln -) 1 amp NEB Q6H PRN PRN Reason: SHORTNESS OF BREATH Sodium Chloride (Normal Saline -) 1,000 mls @ 42 mls/hr IV ASDIR TAMMY Last Admin: 11/16/18 01:56 Dose: 42 mls/hr Piperacillin Sod/Tazobactam (Sod 2.25 gm/ Dextrose) 50 mls @ 100 mls/hr IVPB Q8H-IV TAMMY; Protocol Piperacillin Sod/Tazobactam (Sod 2.25 gm/ Dextrose) 50 mls @ 100 mls/hr IVPB Q8H-IV TAMMY; Protocol Stop: 11/17/18 02:29 Last Admin: 11/16/18 10:26 Dose: 100 mls/hr Lactulose (Cephulac (Oral Use)) 20 gm PO Q6H PRN PRN Reason: CONSTIPATION Metoprolol Succinate (Toprol Xl -) 12.5 mg PO DAILY [facility] Potassium Chloride (K-Dur -) 10 meq PO DAILY [facility] Last Admin: 11/16/18 10:26 Dose: 10 meq Rifaximin (Xifaxan -) 550 mg PO BID [facility] Last Admin: 11/16/18 10:25 Dose: 550 mg Spironolactone (Aldactone -) 25 mg PO DAILY [facility] Torsemide (Demadex -) 10 mg PO DAILY [facility] - Objective Vital Signs: Vital Signs Temperature 97.5 F L 11/16/18 10:22 Pulse Rate 74 11/16/18 10:22 Respiratory Rate 18 11/16/18 10:22 Blood Pressure 94/57 L 11/16/18 10:22 O2 Sat by Pulse Oximetry (%) 99 11/15/18 22:40 Constitutional: Yes: No Distress, Calm Eyes: Yes: Conjunctiva Clear HENT: Yes: Atraumatic Neck: Yes: Supple Cardiovascular: Yes: Regular Rate and Rhythm Respiratory: Yes: Regular, CTA Bilaterally Gastrointestinal: Yes: Normal Bowel Sounds, Soft Genitourinary: Yes: Incontinence Musculoskeletal: Yes: Muscle Weakness Extremities: Yes: WNL Edema: No Neurological: Yes: Alert, Pre-Existing Deficit Psychiatric: Yes: Alert, Oriented (oriented x 2 (person, place)) Labs: CBC, BMP 11/16/18 06:30 11/16/18 06:30 INR, PTT INR 1.25 (0.83-1.09) H 11/16/18 06:30 Problem List - Problems (1) Hepatic encephalopathy Assessment/Plan: -continue with Xifaxin 550 bid -monitor ammonia level Code(s): K72.90 - HEPATIC FAILURE, UNSPECIFIED WITHOUT COMA (2) Toxic metabolic encephalopathy Assessment/Plan: -2/2 to elevated ammonia level vs UTI -monitor ammonia level daily -continue with IV ABT for UTI Code(s): G92 - TOXIC ENCEPHALOPATHY (3) UTI (urinary tract infection) Assessment/Plan: -ID consult -continue with zosyn -no leukocytosis and afebrile -UC pending Code(s): N39.0 - URINARY TRACT INFECTION, SITE NOT SPECIFIED (4) CHF (congestive heart failure) Assessment/Plan: -continue with demadex -1L fluid restriction Code(s): I50.9 - HEART FAILURE, UNSPECIFIED (5) HTN (hypertension) Assessment/Plan: -continue with metoprolol and aldactone Code(s): I10 - ESSENTIAL (PRIMARY) HYPERTENSION (6) Increased ammonia level Assessment/Plan: -continue with lactulose BID -current ammonia level 89.6 -monitor ammonia level daily Code(s): R79.89 - OTHER SPECIFIED ABNORMAL FINDINGS OF BLOOD CHEMISTRY Assessment/Plan see problem list dvt ppx
[2018-11-16] MEDS: TORSEMIDE 10 MG TABLET PO SCH (15:00)
[2018-11-16] MEDS: metoPROLOL SUCCINATE 25 MG TAB.SR.24H (FP) PO SCH ×2 (15:57→16:04)
[2018-11-16] MEDS ORDERED: PT OWN MED DRAWER 7, Y5N ONE (15:58)
[2018-11-16] MEDS: SPIRONOLACTONE 25 MG TABLET (FP) PO SCH (16:04)
[2018-11-17] MEDS ORDERED: PIPERACILLIN/TAZOBACTAM 2.25 GM VIAL IVPB ONE (01:12)
[2018-11-17] MEDS ORDERED: DEXTROSE 5%-WATER - 50 ML IVPB ONE (01:12)
[2018-11-17] MEDS: PIPERACILLIN/TAZOB 2.25 GM 2.25 GM in DEXTROSE 5%-WATER - 50 ML IVPB SCH (01:19)
[2018-11-17 08:08] LABS: HEMOGLOBIN 10.6 GM/dL (10.7-15.3); MCH 29.4 pg (25.7-33.7); MCHC 33.1 g/dl (32.0-36.0); MEAN CELL VOLUME 88.9 fl (80-96); MEAN PLT VOLUME 10.3 fl (7.5-11.1); PLATELET COUNT 58 K/MM3 (134-434); RDW 15.7 % (11.6-15.6); WHITE BLOOD COUNT 5.4 K/mm3 (4.0-10.0)
[2018-11-17 08:27] LABS: ALBUMIN 2.1 g/dl (3.4-5.0); ALK PHOS 88 U/L (45-117); ANION GAP 6 MMOL/L (8-16); BILIRUBIN,TOTAL 1.4 mg/dL (0.2-1); BLOOD UREA NITROGEN 22 mg/dL (7-18); CALCIUM 8.4 mg/dL (8.5-10.1); CHLORIDE 107 mmol/L (98-107); CO2 25 mmol/L (21-32); GLUCOSE,RANDOM 70 mg/dL (74-106); MAGNESIUM 1.8 mg/dL (1.8-2.4); PHOSPHOROUS 3.6 mg/dL (2.5-4.9); POTASSIUM 3.7 mmol/L (3.5-5.1); SGOT/AST 49 U/L (15-37); SGPT/ALT 24 U/L (13-61); SODIUM 138 mmol/L (136-145); TOT PROT 6.6 g/dl (6.4-8.2)
[2018-11-17] MEDS ORDERED: PT OWN MED DRAWER 7, Y5N ONE (09:29)
[2018-11-17] MEDS: RIFAXIMIN 550 MG TABLET (UD) PO SCH (09:32)
[2018-11-17] MEDS: metoPROLOL SUCCINATE 25 MG TAB.SR.24H (FP) PO SCH (09:32)
[2018-11-17] MEDS: SPIRONOLACTONE 25 MG TABLET (FP) PO SCH (09:33)
[2018-11-17] MEDS: POTASSIUM CHLORIDE TABS 10 MEQ TABLET.ER (FP) PO SCH (09:37)
[2018-11-17] MEDS: TORSEMIDE 10 MG TABLET PO SCH (09:38)
[2018-11-17] MEDS ORDERED: PIPERACILLIN/TAZOB 2.25 GM 2.25 GM in DEXTROSE 5%-WATER - 50 ML IVPB SCH (10:00)
--- NOTE | 2018-11-17 14:20 | PN ---
Progress Note (short form) - Note Progress Note: ID CONSULT DICTATED UTI TOXIC METABOLIC V. HEPATIC ENCEPHALOPATHY AWAIT C/S AUGMENTIN 875MG PO BID
[2018-11-17 14:48] VITALS: BP 86/55; PULSE 76; TEMP 98.1
--- NOTE | 2018-11-17 15:55 | DS ---
Physical Examination Vital Signs: Vital Signs Temperature 98.1 F 11/17/18 14:00 Pulse Rate 76 11/17/18 14:00 Respiratory Rate 18 11/17/18 14:00 Blood Pressure 86/55 L 11/17/18 14:00 O2 Sat by Pulse Oximetry (%) 98 11/17/18 09:00 Findings/Remarks: Patient is a 73 y/o female with past medical history of Hepatic encephalopathy, HTN, HLD, preserved EF CHF, cryptogenic cirrhosis, venous insufficiency. Patient presented to ER for SNF for AMS. Patient was noted with elevated ammonia 129.8 and UA with positive leuk 3+ and positive nitrite, UC is prelim positive for group D strep or enterococcous. Evaluated by ID and received zosyn IVPB x 3 doses and will start on Augmentin PO for 7 days. Patient son request her to be transferred to [facility]. After speaking with Dr Jaron Dutton from [facility] patient is not candidate for transfer due to medical condition being able to medically managed here at [facility]. Constitutional: Yes: No Distress, Calm Eyes: Yes: Conjunctiva Clear HENT: Yes: Atraumatic Neck: Yes: Supple Cardiovascular: Yes: Regular Rate and Rhythm Respiratory: Yes: Regular, CTA Bilaterally Gastrointestinal: Yes: Normal Bowel Sounds, Soft Musculoskeletal: Yes: Muscle Weakness Extremities: Yes: WNL Edema: No Neurological: Yes: Alert, Pre-Existing Deficit Psychiatric: Yes: Alert, Oriented (x 2 (person, place)) Labs: CBC, BMP 11/17/18 06:30 11/17/18 06:30 Discharge Summary Reason For Visit: ALTERED MENTAL STATUS,URINARY TRACT INFECTION, Current Active Problems Delirium (Acute) Hepatic encephalopathy (Acute) Toxic metabolic encephalopathy (Acute) UTI (urinary tract infection) (Acute) Hospital Course: see progress notes Laboratory Tests 11/15/18 11/15/18 11/15/18 16:13 16:13 16:13 WBC 6.2 RBC 3.97 Hgb 11.5 Hct 35.3 MCV 88.9 MCH 28.9 MCHC 32.5 RDW 15.2 Plt Count 72 L MPV 11.2 H Absolute Neuts (auto) 4.2 Neutrophils % 67.9 Lymphocytes % 20.5 Monocytes % 9.9 Eosinophils % 0.6 Basophils % 1.1 Nucleated RBC % 0 PT with INR 14.70 H INR 1.24 H PTT (Actin FS) Sodium 140 Potassium 4.5 Chloride 108 H Carbon Dioxide 24 Anion Gap 8 BUN 23 H Creatinine 1.0 Creat Clearance w eGFR 54.05 Random Glucose 81 Calcium 9.1 Phosphorus Magnesium Total Bilirubin 1.5 H AST 67 H ALT 29 Alkaline Phosphatase 110 Ammonia Creatine Kinase 519 H Creatine Kinase Index 0.9 CK-MB (CK-2) 4.8 H Troponin I 0.03 B-Natriuretic Peptide Total Protein 7.8 Albumin 2.6 L TSH Urine Color Urine Appearance Urine pH Ur Specific [place] Urine Protein Urine Glucose (UA) Urine Ketones Urine Blood Urine Nitrite Urine Bilirubin Urine Urobilinogen Ur Leukocyte Esterase Urine WBC (Auto) Urine RBC (Auto) Urine Casts (Auto) U Pathogenic Cast Auto U Epithel Cells (Auto) Urine Bacteria (Auto) Urine Yeast (Auto) Blood Type Antibody Screen 11/15/18 11/15/18 11/15/18 16:13 16:13 18:43 WBC RBC Hgb Hct MCV MCH MCHC RDW Plt Count MPV Absolute Neuts (auto) Neutrophils % Lymphocytes % Monocytes % Eosinophils % Basophils % Nucleated RBC % PT with INR INR PTT (Actin FS) 40.5 H Sodium Potassium Chloride Carbon Dioxide Anion Gap BUN Creatinine Creat Clearance w eGFR Random Glucose Calcium Phosphorus Magnesium Total Bilirubin AST ALT Alkaline Phosphatase Ammonia 129.80 H Creatine Kinase Creatine Kinase Index CK-MB (CK-2) Troponin I B-Natriuretic Peptide Total Protein Albumin TSH Urine Color Dk yellow Urine Appearance Turbid Urine pH 6.5 Ur Specific [place] 1.021 Urine Protein Trace Urine Glucose (UA) Negative Urine Ketones Negative Urine Blood 2+ H Urine Nitrite Positive H Urine Bilirubin Negative Urine Urobilinogen 1.0 Ur Leukocyte Esterase 3+ H Urine WBC (Auto) 2226 Urine RBC (Auto) 47 Urine Casts (Auto) 12 U Pathogenic Cast Auto None seen U Epithel Cells (Auto) 1.4 Urine Bacteria (Auto) 2338.7 Urine Yeast (Auto) None seen Blood Type Antibody Screen 11/15/18 11/16/18 11/16/18 22:03 06:30 06:30 WBC 4.3 RBC 3.65 Hgb 10.4 L Hct 32.4 MCV 89.0 MCH 28.6 MCHC 32.1 RDW 15.4 Plt Count 57 L D MPV 11.0 Absolute Neuts (auto) 2.6 Neutrophils % 61.8 Lymphocytes % 22.6 Monocytes % 12.2 H Eosinophils % 2.4 D Basophils % 1.0 Nucleated RBC % 0 PT with INR 14.80 H INR 1.25 H PTT (Actin FS) 38.0 H Sodium Potassium Chloride Carbon Dioxide Anion Gap BUN Creatinine Creat Clearance w eGFR Random Glucose Calcium Phosphorus Magnesium Total Bilirubin AST ALT Alkaline Phosphatase Ammonia Creatine Kinase Creatine Kinase Index CK-MB (CK-2) Troponin I 0.03 B-Natriuretic Peptide Total Protein Albumin TSH 2.62 Urine Color Urine Appearance Urine pH Ur Specific [place] Urine Protein Urine Glucose (UA) Urine Ketones Urine Blood Urine Nitrite Urine Bilirubin Urine Urobilinogen Ur Leukocyte Esterase Urine WBC (Auto) Urine RBC (Auto) Urine Casts (Auto) U Pathogenic Cast Auto U Epithel Cells (Auto) Urine Bacteria (Auto) Urine Yeast (Auto) Blood Type Antibody Screen 11/16/18 11/16/18 11/16/18 06:30 06:30 06:30 WBC RBC Hgb Hct MCV MCH MCHC RDW Plt Count MPV Absolute Neuts (auto) Neutrophils % Lymphocytes % Monocytes % Eosinophils % Basophils % Nucleated RBC % PT with INR INR PTT (Actin FS) Sodium 143 Potassium 3.9 Chloride 112 H Carbon Dioxide 24 Anion Gap 8 BUN 21 H Creatinine 0.9 Creat Clearance w eGFR 61.04 Random Glucose 64 L Calcium 8.8 Phosphorus 3.3 Magnesium 1.8 Total Bilirubin 1.5 H AST 50 H ALT 26 Alkaline Phosphatase 87 Ammonia 89.60 H Creatine Kinase Creatine Kinase Index CK-MB (CK-2) Troponin I 0.03 B-Natriuretic Peptide 286.7 Total Protein 7.0 Albumin 2.3 L TSH Urine Color Urine Appearance Urine pH Ur Specific [place] Urine Protein Urine Glucose (UA) Urine Ketones Urine Blood Urine Nitrite Urine Bilirubin Urine Urobilinogen Ur Leukocyte Esterase Urine WBC (Auto) Urine RBC (Auto) Urine Casts (Auto) U Pathogenic Cast Auto U Epithel Cells (Auto) Urine Bacteria (Auto) Urine Yeast (Auto) Blood Type Antibody Screen 11/16/18 11/17/18 11/17/18 11:20 06:30 06:30 WBC 5.4 RBC 3.60 Hgb 10.6 L Hct 32.0 L MCV 88.9 MCH 29.4 MCHC 33.1 RDW 15.7 H Plt Count 58 L MPV 10.3 Absolute Neuts (auto) Neutrophils % Lymphocytes % Monocytes % Eosinophils % Basophils % Nucleated RBC % PT with INR INR PTT (Actin FS) Sodium 138 Potassium 3.7 Chloride 107 Carbon Dioxide 25 Anion Gap 6 L BUN 22 H Creatinine 1.0 Creat Clearance w eGFR 54.05 Random Glucose 70 L Calcium 8.4 L Phosphorus 3.6 Magnesium 1.8 Total Bilirubin 1.4 H AST 49 H ALT 24 Alkaline Phosphatase 88 Ammonia Creatine Kinase Creatine Kinase Index CK-MB (CK-2) Troponin I B-Natriuretic Peptide Total Protein 6.6 Albumin 2.1 L TSH Urine Color Urine Appearance Urine pH Ur Specific [place] Urine Protein Urine Glucose (UA) Urine Ketones Urine Blood Urine Nitrite Urine Bilirubin Urine Urobilinogen Ur Leukocyte Esterase Urine WBC (Auto) Urine RBC (Auto) Urine Casts (Auto) U Pathogenic Cast Auto U Epithel Cells (Auto) Urine Bacteria (Auto) Urine Yeast (Auto) Blood Type O POSITIVE Antibody Screen Negative 11/17/18 06:30 WBC RBC Hgb Hct MCV MCH MCHC RDW Plt Count MPV Absolute Neuts (auto) Neutrophils % Lymphocytes % Monocytes % Eosinophils % Basophils % Nucleated RBC % PT with INR INR PTT (Actin FS) Sodium Potassium Chloride Carbon Dioxide Anion Gap BUN Creatinine Creat Clearance w eGFR Random Glucose Calcium Phosphorus Magnesium Total Bilirubin AST ALT Alkaline Phosphatase Ammonia 78.60 H Creatine Kinase Creatine Kinase Index CK-MB (CK-2) Troponin I B-Natriuretic Peptide Total Protein Albumin TSH Urine Color Urine Appearance Urine pH Ur Specific [place] Urine Protein Urine Glucose (UA) Urine Ketones Urine Blood Urine Nitrite Urine Bilirubin Urine Urobilinogen Ur Leukocyte Esterase Urine WBC (Auto) Urine RBC (Auto) Urine Casts (Auto) U Pathogenic Cast Auto U Epithel Cells (Auto) Urine Bacteria (Auto) Urine Yeast (Auto) Blood Type Antibody Screen Active Medications Generic Name Dose Route Start Last Admin Trade Name Freq PRN Reason Stop Dose Admin Albuterol Sulfate 1 amp 11/15/18 21:42 Ventolin 0.083% Nebulizer Soln - NEB Q6H PRN SHORTNESS OF BREATH Amoxicillin/Clavulanate Potassium 1 tab 11/17/18 17:30 Augmentin - 875mg Tablet PO BID@0800,1730 TAMMY Sodium Chloride 1,000 mls @ 42 mls/hr 11/15/18 21:45 11/16/18 01:56 Normal Saline - IV 42 mls/hr ASDIR TAMMY Administration Lactulose 20 gm 11/15/18 21:49 11/17/18 09:39 Cephulac (Oral Use) PO 20 gm Q6H PRN Administration CONSTIPATION Lidocaine 1 patch 11/17/18 16:00 Lidoderm Patch - TP DAILY TAMMY Metoprolol Succinate 12.5 mg 11/16/18 10:00 11/17/18 09:32 Toprol Xl - PO Not Given DAILY TAMMY Miscellaneous 1 each 11/17/18 22:00 Lidoderm Patch Removal MC DAILY@2200 TAMMY Potassium Chloride 10 meq 11/16/18 10:00 11/17/18 09:37 K-Dur - PO 10 meq DAILY TAMMY Administration Rifaximin 550 mg 11/15/18 22:00 11/17/18 09:32 Xifaxan - PO 550 mg BID TAMMY Administration Spironolactone 25 mg 11/16/18 10:00 11/17/18 09:33 Aldactone - PO 25 mg DAILY TAMMY Administration Torsemide 10 mg 11/16/18 10:00 11/17/18 09:38 Demadex - PO 10 mg DAILY TAMMY Administration Microbiology 11/15/18 18:43 Urine - Urine - Catheterized Urine Culture - Preliminary Group D Strep Or Entero Coccus Condition: Stable - Instructions Diet, Activity, Other Instructions: follow up with pmd continue with current medication regimen continue with ABT for UTI return to ER if develop chest pain, AMS, severe distress continue with Lactulose as prescribed monitor LFTs biweekly and Ammonia level -- in SNF Referrals: Mario Sanchez MD [Staff Physician] - Disposition: CUSTODIAL FACILITY - Home Medications Comprehensive Discharge Medication List: Ambulatory Orders Torsemide [Demadex -] 10 mg PO DAILY 06/04/18 Spironolactone [Aldactone] 25 mg PO DAILY 09/05/18 Potassium Chloride 10 meq PO DAILY #7 tab.er.prt MDD 1 09/11/18 Rifaximin [Xifaxan -] 550 mg PO BID #30 tablet MDD 2 09/11/18 Metoprolol Succinate [Toprol XL -] 12.5 mg PO DAILY tab.sr.24h 09/12/18 Albuterol 0.083% Nebulizer Stefani [Ventolin 0.083% Nebulizer Soln -] 1 neb NEB Q6H PRN 10/28/18
[2018-11-17] MEDS ORDERED: LIDOCAINE 5% TOPICAL PATCH TP SCH (16:00)
[2018-11-17] MEDS ORDERED: AMOX TR/POT CLAV 875MG/125MG TABLETS (FP) PO SCH (17:30)
[2018-11-17] MEDS ORDERED: LIDOCAINE PATCH REMOVAL MC SCH (22:00)
--- NOTE | 2018-11-18 06:30 | CONS ---
DATE OF CONSULTATION: DATE OF DICTATION: 11/17/2018 HISTORY: The patient is a 73-year-old female evaluated for urinary tract infection. The patient was admitted from the halfway on November 15, 2018 with reports of altered mentation. A CAT scan of the head was performed, and it was negative for acute infarct or bleed. She was found to have a markedly elevated ammonia level. Her course was complicated by positive urinalysis for pyuria. Urine culture is pending. Urine culture preliminarily growing enterococcus species. She is awake and responsive. She is slightly confused. She offers no focal complaints. She denies any dysuria, hematuria. No complaints of suprapubic or flank pain. PAST MEDICAL HISTORY: Positive for hypertension, hyperlipidemia, congestive heart failure, cirrhosis. ALLERGIES: No known allergies. MEDICATIONS: Demadex, Aldactone, Xifaxan, Toprol. SOCIAL HISTORY: Resides in a [facility] facility. Nonsmoker, nondrinker. LABORATORY DATA: White count 5.4, hematocrit 32, platelet count 58, creatinine 1. Urinalysis 2226 white cells, total bilirubin 1.4, alkaline phosphatase 88, AST 49. PHYSICAL EXAMINATION: General: She is awake and alert. She is slightly confused. Vital Signs: Temperature 97.6, blood pressure 105/58, pulse 58 and regular, respirations 20 per minute. HEENT: Sclerae anicteric. Heart: Sounds S1, S2. No murmur. Lungs: Clear. Abdomen: Obese, soft, nontender. No supine position or flank tenderness. Extremities: Have 1+ edema. IMPRESSION: 1. Urinary tract infection, rule out sepsis secondary to urinary tract infection. 2. Toxic metabolic encephalopathy versus hepatic encephalopathy. PLAN: Await culture results. Empiric antibiotic coverage with Augmentin 875 mg p.o. twice a day pending cultures. Supportive measures. We will follow. Thank you for the kind referral. JIM LOPEZ M.D. [id number]
== END 2018-11-17 18:51 | DRG 689 ==
LOC: JER 15:12 → JERBED 20:09 → J8W 22:38
PROVIDERS: ADMIT Internal Medicine; ATTEND Family Medicine
DX: N39.0 Urinary tract infection, site not specified (principal); G93.41 Metabolic encephalopathy; I50.32 Chronic diastolic (congestive) heart failure; E46 Unspecified protein-calorie malnutrition; K72.90 Hepatic failure, unspecified without coma; B95.2 Enterococcus as the cause of diseases classified elsewhere; K74.69 Other cirrhosis of liver; I11.0 Hypertensive heart disease with heart failure; E88.09 Other disorders of plasma-protein metabolism, not elsewhere classified; D69.6 Thrombocytopenia, unspecified; E78.5 Hyperlipidemia, unspecified; I87.2 Venous insufficiency (chronic) (peripheral); E66.9 Obesity, unspecified; Z68.29 Body mass index [BMI] 29.0-29.9, adult
CPT/HCPCS: 36415; 70450-TC; 71045-TC-FY; 73523-TC-FY; 80048; 80053; 81003; 82140; 82550; 82553; 83735; 83880; 84100; 84443; 84484; 85025; 85027; 85610; 85730; 86850; 86900; 86901; 87086; 87186; 93005; 93010; 97116-GP; 97161-GP; 99283-25; J7030

== ENCOUNTER 2019-03-02 21:09 | Emergency (ER) | payer OTHER ==
[2019-03-02 21:46] VITALS: BP 100/51; PULSE 75; TEMP 98.3; BMI 33.3
--- NOTE | 2019-03-02 22:24 | PDOC ---
History of Present Illness - General Chief Complaint: Edema Stated Complaint: SWELLING Time Seen by Provider: 03/02/19 22:00 History Source: Patient, Family (Son) Exam Limitations: No Limitations - History of Present Illness Initial Comments: 73 yo F PMH cryptogenic cirrhosis, HFpEF, HTN, venous insufficiency, coming from rehab facility with R knee pain and increasing BLE edema. Patient has been in facility since September 201809/23 fall. The BLE edema has been worsening over the past week, despite the patient taking two water pills in an effort to reduce it. The R knee pain is chronic, and patient has had cortisone shots in the past. However, it is more severe than normal today. She reports more difficulty in walking than usual, however she is not very mobile at baseline. Denies CP, SOB, constipation, fevers/chills, nausea/vomiting, headache, dizziness. Does endorse diarrhea but attributes this to the lactulose she is taking for her cryptogenic cirrhosis. 03/02/19 22:18 Past History - Past Medical History Allergies/Adverse Reactions: Allergies Allergy/AdvReac Type Severity Reaction Status Date / Time No Known Allergies Allergy Verified 03/02/19 21:45 Home Medications: Ambulatory Orders Torsemide [Demadex -] 10 mg PO DAILY 06/04/18 Spironolactone [Aldactone] 25 mg PO DAILY 09/05/18 Potassium Chloride 10 meq PO DAILY #7 tab.er.prt MDD 1 09/11/18 Rifaximin [Xifaxan -] 550 mg PO BID #30 tablet MDD 2 09/11/18 Metoprolol Succinate [Toprol XL -] 12.5 mg PO DAILY tab.sr.24h 09/12/18 Albuterol 0.083% Nebulizer Stefani [Ventolin 0.083% Nebulizer Soln -] 1 neb NEB Q6H PRN 10/28/18 Anemia: Yes Asthma: No Cancer: No Cardiac Disorders: Yes (HF) CVA: No COPD: No CHF: Yes Dementia: Yes Diabetes: No GI Disorders: Yes (gerd) Disorders: No HTN: Yes Hypercholesterolemia: Yes Liver Disease: Yes (CIRRHOSIS) Seizures: No Thyroid Disease: No - Surgical History Abdominal Surgery: No Appendectomy: No Cardiac Surgery: No Cholecystectomy: No Lung Surgery: No Neurologic Surgery: No Orthopedic Surgery: No - Immunization History Immunization Up to Date: Yes - Suicide/Smoking/Psychosocial Hx Smoking Status: No Smoking History: Never smoked Years of Tobacco Use: 10 Have you smoked in the past 12 months: No Number of Cigarettes Smoked Daily: 0 Information on smoking cessation initiated: No Hx Alcohol Use: No Drug/Substance Use Hx: No Substance Use Type: None Hx Substance Use Treatment: No Review of Systems - Review of Systems Able to Perform ROS?: Yes Is the patient limited Turkmen proficient: No Constitutional: No: Chills, Fever, Weakness HEENTM: No: Eye Pain, Blurred Vision, Recent change in vision, Ear Pain, Nose Pain, Tinnitus, Hearing Loss, Throat Pain, Throat Swelling, Mouth Pain, Difficulty Swallowing Respiratory: No: Cough, Orthopnea, Shortness of Breath Cardiac (ROS): No: Chest Pain, Lightheadedness, Palpitations, Syncope ABD/GI: No: Constipated, Difficulty Swallowing, Nausea, Vomiting Neurological: No: Headache, Numbness, Pre-Existing Deficit, Seizure, Tingling *Physical Exam - Vital Signs Last Vital Signs Temp Pulse Resp BP Pulse Ox 98.3 F 75 20 100/51 L 98 03/02/19 21:45 03/02/19 21:45 03/02/19 21:45 03/02/19 21:45 03/02/19 21:45 - Physical Exam General Appearance: Yes: Nourished, Appropriately Dressed, Mild Distress HEENT: positive: EOMI, VICKY, Normal ENT Inspection, Normal Voice, Symmetrical, Pharynx Normal Neck: positive: Trachea midline, Normal Thyroid, Supple Respiratory/Chest: positive: Lungs Clear, Normal Breath Sounds Cardiovascular: positive: Regular Rhythm, Regular Rate, Edema (2+ through both legs up to the knee) Musculoskeletal: positive: Normal Inspection. negative: CVA Tenderness Extremity: positive: Normal Range of Motion, Tender (R anterior knee along joint line) Integumentary: positive: Normal Color, Dry, Warm Neurologic: positive: communication manager II-XII NML intact, Fully Oriented, Alert, Normal Mood/ Affect, Normal Response, Motor Strength 5/5, Finger to Nose (intact), Other (no asterixis). negative: Sensory Deficit ED Treatment Course - LABORATORY CBC & Chemistry Diagram: 03/02/19 23:00 03/02/19 23:00 Medical Decision Making - Medical Decision Making Patient reports increasing edema over the past week. Will get CBC CMP CXR EKG trop PT/INR PTT. Give acetaminophen for R knee pain. 03/02/19 22:34 WBC 3.8 and hemoglobin 8.4, appears dilutional. Cr 1.6, will get UA/UC to ensure no UTI. 03/02/19 23:39
[2019-03-02] MEDS ORDERED: ACETAMINOPHEN 1000 MG/100 ML VIAL (NON FORMULARY) IVPB ONE (22:34)
[2019-03-02 23:16] LABS: BASO % 1.3 % (0-2.0); EOS % 2.9 % (0-4.5); HEMATOCRIT 25.3 % (32.4-45.2); HEMOGLOBIN 8.4 GM/dL (10.7-15.3); LYMPH % 25.3 % (8-40); MCH 29.6 pg (25.7-33.7); MCHC 33.4 g/dl (32.0-36.0); MEAN CELL VOLUME 88.7 fl (80-96); MEAN PLT VOLUME 10.6 fl (7.5-11.1); MONO % 12.4 % (3.8-10.2); NEUT % 58.1 % (42.8-82.8); PLATELET COUNT 54 K/MM3 (134-434); RBC 2.85 M/mm3 (3.60-5.2); RDW 14.2 % (11.6-15.6); WHITE BLOOD COUNT 3.8 K/mm3 (4.0-10.0)
[2019-03-02] MEDS ORDERED: ACETAMINOPHEN INJECTION 100 ML IVPB ONE (23:25)
[2019-03-02 23:28] LABS: INR 1.26 (0.83-1.09); PROTHROMBIN TIME (PATIENT) 14.9 SEC (9.7-13.0)
[2019-03-02 23:30] LABS: ACTIVATED PTT 40.8 SECONDS (25.2-36.5)
[2019-03-02 23:36] LABS: ALBUMIN 2.3 g/dl (3.4-5.0); ALK PHOS 166 U/L (45-117); ANION GAP 4 MMOL/L (8-16); BILIRUBIN,TOTAL 0.8 mg/dL (0.2-1); BLOOD UREA NITROGEN 21.4 mg/dL (7-18); CALCIUM 7.6 mg/dL (8.5-10.1); CHLORIDE 107 mmol/L (98-107); CO2 29 mmol/L (21-32); CREATININE 1.6 mg/dL (0.55-1.3); GLUCOSE,RANDOM 122 mg/dL (74-106); N-TERMINAL BNP 131.8 pg/ml (5-450); POTASSIUM 4.7 mmol/L (3.5-5.1); SGOT/AST 35 U/L (15-37); SGPT/ALT 20 U/L (13-61); SODIUM 140 mmol/L (136-145); TOT PROT 6.4 g/dl (6.4-8.2)
[2019-03-03 00:27] LABS: PH,URINE 6.5 (5.0-8.0); URINE APPEARANCE CLEAR; URINE BILIRUBIN NEGATIVE (NEGATIVE); URINE COLOR YELLOW; URINE GLUCOSE (UA) NEGATIVE (NEGATIVE); URINE KETONE NEGATIVE (NEGATIVE); URINE LEUK ESTERASE NEGATIVE (NEGATIVE); URINE NITRITE NEGATIVE (NEGATIVE); URINE PROTEIN NEGATIVE (NEGATIVE); URINE UROBILINOGEN 0.2 mg/dL (0.2-1.0)
--- NOTE | 2019-03-03 00:29 | PDOC ---
Documentation entered by Amy Syed SCRIBE, acting as scribe for Carmen Phelps MD. Carmen Phelps MD: This documentation has been prepared by the Yahaira gonzales Xhesika, SCRIBE, under my direction and personally reviewed by me in its entirety. I confirm that the documentation accurately reflects all work, treatment, procedures, and medical decision making performed by me. Attending Attestation - Resident Resident Name: Lance Egan - HPI HPI: 03/02/19 22:46 The patient is a 73 year old female with a significant medical history of toxic metabolic encephalopathy, HTN, HLD, preserved EF CHF, cryptogenic cirrhosis, and venous insufficiency who present to the ED with worsening bilateral lower extremity edema and chronic R knee pain. The patient states she has been taking 2 water pills a day for her swelling with no relief of symptoms. The patient states she is currently in rehab s/p fall in 10/10. The patient denies chest pain, shortness of breath, headache and dizziness. Denies fever, chills, nausea, vomiting, diarrhea and constipation. Denies dysuria, frequency, urgency and hematuria. Allergies: NKA - Physicial Exam PE: 03/02/19 23:22 A GENERAL: Awake, alert, and fully oriented, in no acute distress HEAD: No signs of trauma EYES: PERRLA, EOMI, sclera anicteric, conjunctiva clear ENT: Auricles normal inspection, hearing grossly normal, nares patent, oropharynx clear without exudates. Moist mucosa NECK: Normal ROM, supple, no lymphadenopathy, JVD, or masses LUNGS: Breath sounds equal, clear to auscultation bilaterally. No wheezes, and no crackles HEART: Regular rate and rhythm, normal S1 and S2, no murmurs, rubs or gallops ABDOMEN: Soft, nontender, normoactive bowel sounds. No guarding, no rebound. No masses EXTREMITIES: (+) 1+ pitting edema to mid calf bilaterally. Normal range of motion. No clubbing or cyanosis. No cords, erythema, or tenderness NEUROLOGICAL: Cranial nerves II through XII grossly intact. Normal speech. SKIN: Warm, Dry, normal turgor, no rashes or lesions noted. - Medical Decision Making 03/03/19 00:27 Pt presents to the Ed complaining of worsening lower extremity edema, not relieved by double doses of her diuretic for one week. Denies chest complaints. Labs show mild elevation in creatinine, but are otherwise OK. Will check UA to evaluate for urinary tract infection. Will likely discharge home with follow up with her PMD.
--- NOTE | 2019-03-03 00:48 | PDOC ---
*Physical Exam - Vital Signs Last Vital Signs Temp Pulse Resp BP Pulse Ox 98.3 F 75 20 100/51 L 98 03/02/19 21:45 03/02/19 21:45 03/02/19 21:45 03/02/19 21:45 03/02/19 21:45 ED Treatment Course - LABORATORY CBC & Chemistry Diagram: 03/02/19 23:00 03/02/19 23:00 - ADDITIONAL ORDERS Additional order review: Laboratory Results 03/03/19 03/02/19 03/02/19 00:00 23:00 23:00 PT with INR 14.90 H INR 1.26 H PTT (Actin FS) 40.8 H Sodium 140 Potassium 4.7 Chloride 107 Carbon Dioxide 29 Anion Gap 4 L BUN 21.4 H Creatinine 1.6 H Est GFR (CKD-EPI)AfAm 36.16 Est GFR (CKD-EPI)NonAf 31.20 Random Glucose 122 H Calcium 7.6 L Total Bilirubin 0.8 AST 35 ALT 20 Alkaline Phosphatase 166 H Troponin I < 0.02 B-Natriuretic Peptide 131.8 Total Protein 6.4 Albumin 2.3 L Urine Color Yellow Urine Appearance Clear Urine pH 6.5 Ur Specific [place] 1.013 Urine Protein Negative Urine Glucose (UA) Negative Urine Ketones Negative Urine Blood Negative Urine Nitrite Negative Urine Bilirubin Negative Urine Urobilinogen 0.2 Ur Leukocyte Esterase Negative 03/02/19 23:00 RBC 2.85 L MCV 88.7 MCHC 33.4 RDW 14.2 MPV 10.6 Neutrophils % 58.1 Lymphocytes % 25.3 Monocytes % 12.4 H Eosinophils % 2.9 Basophils % 1.3 - Medications Given in the ED: ED Medications Discontinued Medications Generic Name Dose Route Start Last Admin Trade Name Freq PRN Reason Stop Dose Admin Acetaminophen 1,000 mg 03/02/19 22:34 03/02/19 23:40 Ofirmev Injection - IVPB 03/02/19 22:35 1,000 mg ONCE ONE Administration Medical Decision Making - Medical Decision Making 73yo F with PMH of cryptogenic cirrhosis, HFpEF, HTN, venous insufficiency, coming from [facility] with R. knee pain and worsening BLE swelling. Negative UA Labs otherwise unremarkable except for Cr of 1.6, likely due to recent increase in diuretic administration. Dosage likely needs to be adjusted. Patient will follow-up with primary care physician regarding this. Plan for discharge 03/03/19 00:46 *DC/Admit/Observation/Transfer Diagnosis at time of Disposition: Edema - Discharge Dispostion Disposition: RETIREMENT FACILITY Condition at time of disposition: Stable - Referrals - Patient Instructions Printed Discharge Instructions: DI for Peripheral Edema -- Bilateral Additional Instructions: You came to the ED for leg swelling. Labs did not indicate acute pathology, except that your Creatinine was slightly elevated today which is a measure of your kidney function. Make sure you keep hydrated. Your doctor may want to adjust the dose of your diuretic medication. Follow-up with a primary care provider this week to discuss this ED visit and to further evaluate your symptoms. Your workup is not complete until you do so. Immediate medical attention is required if you experience: chest pain, shortness of breath, have focal numbness or weakness, or any new or concerning symptoms. If you think you are having an emergency, call for emergency medical services or present to the emergency department right away. - Post Discharge Activity
--- NOTE | 2019-03-03 09:31 | EKG ---
Test Reason : Blood Pressure : / mmHG Vent. Rate : 067 BPM Atrial Rate : 067 BPM P-R Int : 200 ms QRS Dur : 080 ms QT Int : 426 ms P-R-T Axes : 034 004 043 degrees QTc Int : 450 ms NORMAL SINUS RHYTHM NORMAL ECG WHEN COMPARED WITH ECG OF 15-NOV-2018 15:41, CRITERIA FOR SEPTAL INFARCT ARE NO LONGER PRESENT Confirmed by PEARL WASSERMAN MD ([id number]) on 03/03/2019 9:30:45 AM Referred By: Confirmed By:PEARL WASSERMAN MD
== END 2019-03-03 02:33 ==
LOC: JER 21:09
DX: R60.0 Localized edema (principal); I87.2 Venous insufficiency (chronic) (peripheral); I11.0 Hypertensive heart disease with heart failure; I50.9 Heart failure, unspecified; K74.69 Other cirrhosis of liver
CPT/HCPCS: 36415; 80053; 81003; 83880; 84484; 85025; 85610; 85730; 87086; 93005; 93010; 99282-25; J0131

== ENCOUNTER 2020-01-22 10:28 | Inpatient (IN) | payer OTHER ==
[2020-01-22] MEDS ORDERED: SODIUM CHLORIDE 2,926 ML IV ONE (10:52)
--- NOTE | 2020-01-22 10:54 | PDOC ---
History of Present Illness - General Chief Complaint: SIRS, Suspected/Possible Stated Complaint: COVID Time Seen by Provider: 01/22/20 10:37 - History of Present Illness Initial Comments: History limited 2/2 lethargy and obtained from patient, patient's sons, and EMS. Maya Rodgers is a 74 y/o female with reported PMH significant for cryptogenic cirrhosis, HFpEF, HTN, HLD, venous insufficiency, hepatic encephalopathy, BIBEMS today. She lives with her son at home and today reported lower back pain that started yesterday. Per EMS, the home was very warm when they arrived and she had several blankets on and was shivering and had lower extremity swelling. O2 sats in the field were mid 80s. Pt's son also reporting that pt is more lethargic than prior over the past couple of days. Pt complaining of low back pain. Denies any other pain. Denies chest pain/shortness of breath. Denies headache/dizziness. Denies nausea/vomiting. Denies lower extremity pain. Pt is A&Ox3. Past History - Past Medical History Allergies/Adverse Reactions: Allergies Allergy/AdvReac Type Severity Reaction Status Date / Time No Known Allergies Allergy Verified 03/02/19 21:45 Home Medications: Ambulatory Orders Torsemide [Demadex -] 30 ml PO DAILY 06/04/18 Spironolactone [Aldactone] 25 mg PO DAILY 09/05/18 Lactulose 0 gm PO PRN 01/22/20 Metoprolol Succinate [Toprol XL -] 25 mg PO DAILY 01/22/20 Anemia: Yes Asthma: No Cancer: No Cardiac Disorders: Yes (HF) CVA: No COPD: No CHF: Yes Dementia: Yes Diabetes: No GI Disorders: Yes (gerd) Disorders: No HTN: Yes Hypercholesterolemia: Yes Liver Disease: Yes (CIRRHOSIS) Seizures: No Thyroid Disease: No - Surgical History Abdominal Surgery: No Appendectomy: No Cardiac Surgery: No Cholecystectomy: No Lung Surgery: No Neurologic Surgery: No Orthopedic Surgery: No - Immunization History Immunization Up to Date: Yes - Psycho Social/Smoking Cessation Hx Smoking Status: No Smoking History: Never smoked Years of Tobacco Use: 10 Have you smoked in the past 12 months: No Number of Cigarettes Smoked Daily: 0 Hx Alcohol Use: No Drug/Substance Use Hx: No Substance Use Type: None Hx Substance Use Treatment: No Review of Systems - Review of Systems Comments:: GENERAL/CONSTITUTIONAL: Positive fever and chills. Reports lethargy and generalized weakness. HEAD, EYES, EARS, NOSE AND THROAT: No change in vision. No change in hearing. No sore throat._ CARDIOVASCULAR: No chest pain or shortness of breath_ RESPIRATORY: Denies cough, hemoptysis_ GASTROINTESTINAL: No nausea, vomiting, diarrhea or constipation._ GENITOURINARY: No dysuria, frequency, or change in urination._ MUSCULOSKELETAL: No joint or muscle swelling or pain. No neck. Reports lower back pain. SKIN: No rash_ NEUROLOGIC: No headache, vertigo, loss of consciousness, or change in strength/sensation._ ENDOCRINE: No increased thirst. No abnormal weight change_ HEMATOLOGIC/LYMPHATIC: No anemia, easy bleeding, or history of blood clots._ ALLERGIC/IMMUNOLOGIC: No hives or skin allergy._ *Physical Exam - Vital Signs Last Vital Signs Temp Pulse Resp BP Pulse Ox 102.6 F H 95 H 15 144/121 H 98 01/22/20 10:32 01/22/20 10:32 01/22/20 10:32 01/22/20 10:32 01/22/20 10:32 - Physical Exam GENERAL: Awake, drowsy, and oriented to person/place/time, in no acute distress_ HEAD: No signs of trauma, normocephalic, atraumatic _ EYES: PERRLA, EOMI, sclera anicteric, conjunctiva clear_ ENT: Hearing grossly normal, nares patent, oropharynx clear without exudates. No uvular deviation. Moist mucosa_ NECK: Normal ROM, supple, no lymphadenopathy, JVD, or masses_ LUNGS: No distress, speaks in full sentences, minimal wheezing at bilateral lung bases. HEART: Regular rate and rhythm, normal S1 and S2, no murmurs appreciated, peripheral pulses normal and equal bilaterally._ ABDOMEN: Soft, obese, TTP suprapubic and epigastric areas. No guarding, no rebound. No masses_ EXTREMITIES: Normal inspection, Normal range of motion, 2+ bilateral pitting edema. No clubbing or cyanosis_ NEUROLOGICAL: Cranial nerves II through XII grossly intact. Normal speech, no focal sensorimotor deficits _ SKIN: Warm, Dry, normal turgor, no rashes or lesions noted_ Procedures - Central Line Central Line Lumen: triple Central Line Position: internal jugular (L) Anesthesia: 1% Lidocaine Amount of anesthesia (ccs): 2 Complications: none Post Central Line Insertion: sutured, good blood return, position confirmed w/ CXR Progress: The risks were noted to include bleeding and pneumothorax. The indication for the procedure were hypotension. A timeout was performed. Nursing staff were present and the patient was monitored using telemetry and continuous pulse oximetry. The patient was placed in the Trendelenburg position and the neck was prepped chlorhexidine and a sterile full body drape was placed. Sterile technique including gown, mask, and gloves were used and antibacterial hand gel was used before gloving. The ultrasound machine, using a sterile probe cover, was used to visualize the internal jugular vein by the compression technique. The skin was anesthetized with local infiltration with 3 cc of 1% lidocaine and an 18 gauge finder needle was used to enter the internal jugular vein. Venous blood was aspirated and a guidewire was threaded through the needle into the vein. The soft tissues were dilated and the needle was removed. An triple lumen catheter was threaded over the guidewire in the standard Seldinger technique and secured at 15 cm. The guidewire was removed and all ports flushed and aspirated blood without difficulty. A sterile dressing and Biopatch were applied. A postoperative chest X-ray showed the line to be in good position without any evidence of pneumothorax. ED Treatment Course - LABORATORY CBC & Chemistry Diagram: 01/23/20 11:30 01/23/20 05:53 - ADDITIONAL ORDERS Additional order review: Laboratory Results 01/22/20 10:48 POC Glucometer 73 01/22/20 10:48 POC Glucometer 73 - RADIOLOGY Radiology Studies Ordered: Category Date Time Status CHEST X-RAY PORTABLE* [RAD] Stat Radiology 01/22/20 10:43 Taken Medical Decision Making - Medical Decision Making 74F BIBEMS today for lethargy and lower back pain that started yesterday. -cbc, cmp -ekg, trop, cxr -lactic -coags -sepsis order set -ua, ucx -blood cx -mg/phos -ammonia -tsh -tylenol -zosyn 01/22/20 11:44 Rainer Rodgers (son): [phone] Gus Lewis (son): [phone] 01/22/20 12:05 EKG shows NSR, 92 bpm, no ST elevation, QTc 427. 01/22/20 12:06 CXR shows suggested increase interstitial infiltrates in the upper chest. 01/22/20 13:16 Pt reassessed. BP in the 70s to 80s per RN. On presentation BP was in the 110s. Will obtain [place] ultrasound. 01/22/20 13:30 Will add vanc and zithro. Obtain CT head, chest, abd/pelv. 01/22/20 13:33 Labs reviewed. Laboratory Last Values WBC 10.8 K/mm3 (4.0-10.0) H 01/22/20 10:45 RBC 2.82 M/mm3 (3.60-5.2) L 01/22/20 10:45 Hgb 8.1 GM/dL (10.7-15.3) L 01/22/20 10:45 Hct 24.9 % (32.4-45.2) L 01/22/20 10:45 MCV 88.1 fl (80-96) 01/22/20 10:45 MCH 28.7 pg (25.7-33.7) 01/22/20 10:45 MCHC 32.6 g/dl (32.0-36.0) 01/22/20 10:45 RDW 16.7 % (11.6-15.6) H 01/22/20 10:45 Plt Count 59 K/MM3 (134-434) L 01/22/20 10:45 MPV 11.0 fl (7.5-11.1) 01/22/20 10:45 Absolute Neuts (auto) 9.7 K/mm3 (1.5-8.0) H 01/22/20 10:45 Neutrophils % 90.3 % (42.8-82.8) H 01/22/20 10:45 Lymphocytes % 4.7 % (8-40) L D 01/22/20 10:45 Monocytes % 4.3 % (3.8-10.2) 01/22/20 10:45 Eosinophils % 0.2 % (0-4.5) D 01/22/20 10:45 Basophils % 0.5 % (0-2.0) 01/22/20 10:45 Nucleated RBC % 0 % (0-0) 01/22/20 10:45 PT with INR 20.40 SEC (9.7-13.0) H 01/22/20 10:45 INR 1.72 (0.83-1.09) H 01/22/20 10:45 PTT (Actin FS) 55.0 SECONDS (25.2-36.5) H 01/22/20 10:45 VBG pH 7.36 (7.31-7.41) 01/22/20 10:45 POC VBG pCO2 47.4 mmHg (38-52) 01/22/20 10:45 POC VBG pO2 < 49 mmHg (28-48) H 01/22/20 10:45 VBG HCO3 26.1 mmol/L (23-29) 01/22/20 10:45 VBG O2 Sat (Michael) 46.0 % (70-80) L 01/22/20 10:45 VBG Base Excess 0.1 mmol/L (-2-2) 01/22/20 10:45 Sodium 139 mmol/L (136-145) 01/22/20 10:45 Potassium 4.5 mmol/L (3.5-5.1) 01/22/20 10:45 Chloride 107 mmol/L (98-107) 01/22/20 10:45 Carbon Dioxide 23 mmol/L (21-32) 01/22/20 10:45 Anion Gap 9 MMOL/L (8-16) 01/22/20 10:45 BUN 12.8 mg/dL (7-18) 01/22/20 10:45 Creatinine 1.6 mg/dL (0.55-1.3) H 01/22/20 10:45 Est GFR (CKD-EPI)AfAm 35.90 01/22/20 10:45 Est GFR (CKD-EPI)NonAf 30.98 01/22/20 10:45 POC Glucometer 73 UNITS (80-120) 01/22/20 10:48 Random Glucose 79 mg/dL (74-106) 01/22/20 10:45 Lactic Acid 3.8 mmol/L (0.4-2.0) H* 01/22/20 10:45 Calcium 8.1 mg/dL (8.5-10.1) L 01/22/20 10:45 Phosphorus 2.8 mg/dL (2.5-4.9) 01/22/20 10:45 Magnesium 1.7 mg/dL (1.8-2.4) L 01/22/20 10:45 Total Bilirubin 2.4 mg/dL (0.2-1) H 01/22/20 10:45 AST 43 U/L (15-37) H 01/22/20 10:45 ALT 15 U/L (13-61) 01/22/20 10:45 Alkaline Phosphatase 126 U/L (45-117) H 01/22/20 10:45 Creatine Kinase 78 U/L (26-192) 01/22/20 10:45 Troponin I < 0.02 ng/ml (0.00-0.05) 01/22/20 10:45 Total Protein 7.0 g/dl (6.4-8.2) 01/22/20 10:45 Albumin 1.8 g/dl (3.4-5.0) L 01/22/20 10:45 TSH 2.70 uIU/ml (0.358-3.74) 01/22/20 10:45 Urine Color Dk yellow 01/22/20 10:45 Urine Appearance Clear 01/22/20 10:45 Urine pH 5.5 (5.0-8.0) 01/22/20 10:45 Ur Specific [place] 1.020 (1.010-1.035) 01/22/20 10:45 Urine Protein Negative (NEGATIVE) 01/22/20 10:45 Urine Glucose (UA) Negative (NEGATIVE) 01/22/20 10:45 Urine Ketones Trace (NEGATIVE) H 01/22/20 10:45 Urine Blood 1+ (NEGATIVE) H 01/22/20 10:45 Urine Nitrite Negative (NEGATIVE) 01/22/20 10:45 Urine Bilirubin Negative (NEGATIVE) 01/22/20 10:45 Urine Urobilinogen 1.0 mg/dL (0.2-1.0) 01/22/20 10:45 Ur Leukocyte Esterase Negative (NEGATIVE) 01/22/20 10:45 Urine WBC (Auto) 16 /uL (0-25.8) 01/22/20 10:45 Urine RBC (Auto) 69 /uL (0-23.9) 01/22/20 10:45 Urine Casts (Auto) 6 /uL (0-3.1) 01/22/20 10:45 U Pathogenic Cast Auto 3 /lpf (NEGATIVE) 01/22/20 10:45 U Epithel Cells (Auto) 17 /uL (0-25.1) 01/22/20 10:45 Urine Bacteria (Auto) 14 /uL (0-1359) 01/22/20 10:45 01/22/20 14:28 Pt reassessed. Alertness much improved. Able to answer questions and requesting lunch. BP still in the 80s. Received 2.5 L fluids at present. Will reassess and obtain CT when stable. 01/22/20 16:53 CT head negative for acute intracranial pathology. CT chest/abd/pelv shows: A large amount of abdominal and pelvic ascites is noted which appears increased in comparison to a prior CT exam of 06/04/2018. Note is also made of increased concentric subcutaneous edema along the abdomen and pelvis as well as the partially imaged upper thighs. Evaluation of the remainder of the abdomen and pelvis is limited as discussed above. Hepatic cirrhosis. Splenomegaly. Perisplenic ascites. Cholelithiasis. Calcified uterine leiomyoma. The chest demonstrates no definite interval change in comparison to a prior CT exam of 10/17/2016. At least moderate bilateral upper lobe cystic and cylindrical bronchiectasis is noted. Less prominent bronchiectasis is seen within the right middle lobe. A component of this appearance could also represent bullous disease. Cardiomegaly. Extensive atherosclerotic coronary calcifications. Note is again made of dilatation of the main pulmonary artery suggestive of pulmonary hypertension. 01/22/20 19:30 D/w Dr. Lo who accepts the patient for ICU admission. Discharge - Discharge Information Problems reviewed: Yes Clinical Impression/Diagnosis: Severe sepsis Condition: Stable - Admission Yes - Follow up/Referral - Patient Discharge Instructions - Post Discharge Activity
[2020-01-22] MEDS ORDERED: PIPERACILLIN/TAZOB 3.375 GM 3.375 GM in DEXTROSE 5%-WATER - 50 ML IVPB ONE (10:58)
[2020-01-22] MEDS ORDERED: ACETAMINOPHEN INJECTION 100 ML IVPB ONE (11:19)
[2020-01-22] MEDS ORDERED: PIPERACILLIN/TAZOB 3.375 GM 3.375 GM/50 ML BAG IVPB ONE (11:19)
[2020-01-22] MEDS ORDERED: ACETAMINOPHEN 1000 MG/100 ML VIAL (NON FORMULARY) IVPB ONE (11:21)
[2020-01-22 11:46] LABS: VENOUS BASE EXCESS 0.1 mmol/L (-2-2); VENOUS PC02 47.4 mmHg (38-52); VENOUS PH 7.36 (7.31-7.41); VENOUS PO2 < 49 mmHg (28-48)
[2020-01-22 11:52] LABS: BASO % 0.5 % (0-2.0); EOS % 0.2 % (0-4.5); HEMATOCRIT 24.9 % (32.4-45.2); HEMOGLOBIN 8.1 GM/dL (10.7-15.3); LYMPH % 4.7 % (8-40); MCH 28.7 pg (25.7-33.7); MCHC 32.6 g/dl (32.0-36.0); MEAN CELL VOLUME 88.1 fl (80-96); MONO % 4.3 % (3.8-10.2); NEUT % 90.3 % (42.8-82.8); PLATELET COUNT 59 K/MM3 (134-434); RBC 2.82 M/mm3 (3.60-5.2); RDW 16.7 % (11.6-15.6); WHITE BLOOD COUNT 10.8 K/mm3 (4.0-10.0)
[2020-01-22 11:57] LABS: EPI CELLS 17 /uL (0-25.1); HYALINE CASTS 6 /uL (0-3.1); PH,URINE 5.5 (5.0-8.0); URINE APPEARANCE CLEAR; URINE BACTERIA 14 /uL (0-1359); URINE BILIRUBIN NEGATIVE (NEGATIVE); URINE COLOR DK YELLOW; URINE GLUCOSE (UA) NEGATIVE (NEGATIVE); URINE KETONE TRACE (NEGATIVE); URINE LEUK ESTERASE NEGATIVE (NEGATIVE); URINE NITRITE NEGATIVE (NEGATIVE); URINE PROTEIN NEGATIVE (NEGATIVE); URINE RBC 69 /uL (0-23.9); URINE WBC 16 /uL (0-25.8)
[2020-01-22 12:05] LABS: INR 1.72 (0.83-1.09); PROTHROMBIN TIME (PATIENT) 20.4 SEC (9.7-13.0)
[2020-01-22 12:21] LABS: ALBUMIN 1.8 g/dl (3.4-5.0); ALK PHOS 126 U/L (45-117); ANION GAP 9 MMOL/L (8-16); BILIRUBIN,TOTAL 2.4 mg/dL (0.2-1); BLOOD UREA NITROGEN 12.8 mg/dL (7-18); CALCIUM 8.1 mg/dL (8.5-10.1); CHLORIDE 107 mmol/L (98-107); CO2 23 mmol/L (21-32); CREATININE 1.6 mg/dL (0.55-1.3); GLUCOSE,RANDOM 79 mg/dL (74-106); MAGNESIUM 1.7 mg/dL (1.8-2.4); PHOSPHOROUS 2.8 mg/dL (2.5-4.9); POTASSIUM 4.5 mmol/L (3.5-5.1); SGOT/AST 43 U/L (15-37); SGPT/ALT 15 U/L (13-61); SODIUM 139 mmol/L (136-145)
--- NOTE | 2020-01-22 13:06 | EKG ---
Test Reason : Blood Pressure : / mmHG Vent. Rate : 092 BPM Atrial Rate : 092 BPM P-R Int : 174 ms QRS Dur : 072 ms QT Int : 346 ms P-R-T Axes : 040 000 048 degrees QTc Int : 427 ms NORMAL SINUS RHYTHM NORMAL ECG WHEN COMPARED WITH ECG OF 03-MAR-2019 00:26, NO SIGNIFICANT CHANGE WAS FOUND Confirmed by MD Knapp Daniel ([id number]) on 01/22/2020 1:06:33 PM Referred By: Confirmed By:Remi Knapp MD
--- NOTE | 2020-01-22 13:27 | PDOC ---
Attending Attestation - Resident Resident Name: Jose Maddox - ED Attending Attestation I have performed the following: I have examined & evaluated the patient, The case was reviewed & discussed with the resident, I agree w/resident's findings & plan - HPI HPI: 01/22/20 13:23 74y/o F h/o cirrhosis c/b hepatic encephalopathy, HTN, from home bibems with rigors, lethargy/AMS. - Physicial Exam PE: 01/22/20 13:24 febrile, warm to touch, responds to verbal regular tachycardia, course breath sounds - Critical Care Time Total Critical Care Time: 30 Critical Care Statement: The care of this patient involved high complexity decision making to prevent further life threatening deterioration of the patient's condition and/or to evaluate & treat vital organ system(s) failure or risk of failure. - Medical Decision Making 01/22/20 13:25 74y/o F from home with sepsis, AMS. sepsis protocol initiated IVF, anti-pyretic COVID precautions admit 01/22/20 13:26 elevated wbc with lymphopenia, baseline hgb and platelets. baseline cr 1.6, elevated lactate, trop negative ua clear, cxr with lightly increased infiltrates at apex ct chest, abd/pel broad abx, maintain isolation continue iv fluids for hypotensive episode. pressors as needed admit 01/22/20 16:16 alert, SBP remains about 90, which appears baseline from prior visits. HR normal, repeating lactate. ct chest pending, likely pna, ? covid. ctap pending, ? cholecystitis (ascites on bedside sono, elevated total bili) admit with droplet precautions Heart Score/ECG Review #1 ECG reviewed & interpreted by me at: 10:39 General ECG Interpretation: Sinus Rhythm, Normal Rate (92), Normal Intervals (qtc 427), No acute ischemic changes Discharge - Discharge Information Problems reviewed: Yes Clinical Impression/Diagnosis: Severe sepsis - Follow up/Referral - Patient Discharge Instructions - Post Discharge Activity Work/Back to School Note: Back to Work
[2020-01-22] MEDS ORDERED: AZITHROMYCIN IVPB 500 MG in DEXTROSE 5%-WATER - 250 ML IVPB ONE (13:29)
[2020-01-22] MEDS ORDERED: VANCOMYCIN 1 GM in D5W (PRE-DOCKED) 1,000 MG/250 ML IVPB ONE (13:29)
[2020-01-22] MEDS ORDERED: VANCOMYCIN 1 GRAM (PRE-DOCKED) 1,000 MG/250 ML BAG IVPB ONE (13:43)
[2020-01-22] MEDS ORDERED: AZITHROMYCIN IVPB 500 MG/250 ML BAG IVPB ONE (13:43)
[2020-01-22 14:09] LABS: N-TERMINAL BNP 459.9 pg/ml (5-450)
--- NOTE | 2020-01-22 19:30 | CONSULT ---
Consultation: REQUESTING PROVIDER: CONSULT REQUEST: We have been asked to medically evaluate this patient for hypotension. HISTORY OF PRESENT ILLNESS: HPI obtained from patient, patient's son (Rainer Rodgers [phone]) and EMR 74 y/o female with a PMHx of cirrhosis, HFpEF, HTN, HLD, venous insufficiency, hepatic encephalopathy BIBEMS for chills. Patient was in her USOH this morning around 6 a.m. - spoke with son and then went back to sleep. When patient woke up around 8 a.m. she was cold and shaking all over "like I had a fever." Son reports patient remained at her baseline mental status and he turned on the broiler to heat up the house and put blankets on the patient. As patient remained shaky and cold son called 911. Patient reports 2-3 weeks of lower extremity swelling w/o any chest pain or shortness of breath. Patient also states "I think I have a urinary tract infection" because she has had some vaginal itching. Has been unable to see her PMD because he is not seeing patients in the office due to the COVID-19 pandemic. As per EMR, son reported that patient was more lethargic over the last few days and c/o lower back pain. ED Course: (1) Temperature 102.6 degrees Fahrenheit, Intermittent SBP < 90 (2) Lactic Acidosis 3.8 --> 3.4 (s/p 3 L) (3) Ammonia 74 (4) Total Bilirubin 2.4 (5) UA clean; UCX pending (6) CT Chest: moderate bilateral upper lobe cystic and cylindrical bronchiectasis is noted. Less prominent bronchiectasis is seen within the right middle lobe. A component of this appearance could also represent bullous disease. Cardiomegaly. (7) CTAP: A large amount of abdominal and pelvic ascites is noted which appears increased in comparison to a prior abdomen/pelvic CT study of 06/04/2018. There is also increased concentric subcutaneous edema along the abdomen and pelvis principally along the flanks. Increased subcutaneous edema is also visualized at the level of the partially imaged upper thighs. (8) Head CT: negative for acute intracranial pathology (9) Persistent SBP < 90 with central line placement for vasopressors At time of ICU consult evaluation patient's BP 86/43 (MAP 56), HR 72, SpO2 100% on RA, RR 20 REVIEW OF SYSTEMS: CONSTITUTIONAL: Absent: fever, chills, diaphoresis, generalized weakness, malaise, loss of appetite, weight change HEENT: Absent: rhinorrhea, nasal congestion, throat pain, throat swelling, difficulty swallowing, mouth swelling, ear pain, eye pain, visual changes CARDIOVASCULAR: Absent: chest pain, syncope, palpitations, irregular heart rate, lightheadedness, peripheral edema: lower extremity swelling for 2-3 weeks RESPIRATORY: Absent: cough, shortness of breath, dyspnea with exertion, orthopnea, wheezing, stridor, hemoptysis GASTROINTESTINAL: Absent: abdominal pain, abdominal distension, nausea, vomiting, diarrhea, constipation, melena, hematochezia GENITOURINARY: vaginal itching Absent: dysuria, frequency, urgency, hesitancy, hematuria, flank pain, genital pain MUSCULOSKELETAL: Absent: myalgia, arthralgia, joint swelling, back pain, neck pain SKIN: Absent: rash, itching, pallor HEMATOLOGIC/IMMUNOLOGIC: Absent: easy bleeding, easy bruising, lymphadenopathy, frequent infections ENDOCRINE: Absent: unexplained weight gain, unexplained weight loss, heat intolerance, cold intolerance NEUROLOGIC: Absent: headache, focal weakness or paresthesias, dizziness, unsteady gait, seizure, mental status changes, bladder or bowel incontinence PSYCHIATRIC: Absent: anxiety, depression, suicidal or homicidal ideation, hallucinations. PHYSICAL EXAMINATION Vital Signs - 24 hr 01/22/20 01/22/20 01/22/20 10:32 10:45 10:58 Temperature 102.6 F H Pulse Rate 95 H Pulse Rate [ Apical] Pulse Rate [ 95 H Left Radial] Respiratory 15 17 Rate Blood Pressure 144/121 H Blood Pressure 109/56 L [Right Arm] O2 Sat by Pulse 98 95 93 L Oximetry (%) 01/22/20 01/22/20 01/22/20 11:30 12:02 13:00 Temperature 101.1 F H Pulse Rate Pulse Rate [ 88 Apical] Pulse Rate [ 89 96 H Left Radial] Respiratory 23 H 19 18 Rate Blood Pressure Blood Pressure 97/54 L 100/75 83/44 L [Right Arm] O2 Sat by Pulse 95 96 100 Oximetry (%) 01/22/20 01/22/20 01/22/20 13:30 13:48 14:00 Temperature Pulse Rate Pulse Rate [ 86 Apical] Pulse Rate [ 88 92 H Left Radial] Respiratory 21 H 22 H 24 H Rate Blood Pressure Blood Pressure 91/47 L 78/45 L 79/50 L [Right Arm] O2 Sat by Pulse 100 100 97 Oximetry (%) 01/22/20 01/22/20 01/22/20 14:10 14:28 14:50 Temperature Pulse Rate Pulse Rate [ 79 Apical] Pulse Rate [ 82 78 Left Radial] Respiratory 22 H 19 19 Rate Blood Pressure Blood Pressure 82/52 L 82/56 L 84/47 L [Right Arm] O2 Sat by Pulse 100 100 100 Oximetry (%) 01/22/20 01/22/20 01/22/20 15:10 15:25 15:40 Temperature 98.2 F Pulse Rate Pulse Rate [ 74 78 75 Apical] Pulse Rate [ Left Radial] Respiratory 17 23 H 22 H Rate Blood Pressure Blood Pressure 84/47 L 84/44 L 80/47 L [Right Arm] O2 Sat by Pulse 98 99 100 Oximetry (%) 01/22/20 01/22/20 01/22/20 15:59 16:37 16:50 Temperature Pulse Rate Pulse Rate [ 71 77 79 Apical] Pulse Rate [ Left Radial] Respiratory 17 21 H 20 Rate Blood Pressure Blood Pressure 80/41 L 89/54 L 91/58 L [Right Arm] O2 Sat by Pulse 100 98 100 Oximetry (%) 01/22/20 01/22/20 01/22/20 17:00 17:10 17:30 Temperature Pulse Rate Pulse Rate [ 73 74 79 Apical] Pulse Rate [ Left Radial] Respiratory 16 19 19 Rate Blood Pressure Blood Pressure 89/43 L 85/44 L 84/49 L [Right Arm] O2 Sat by Pulse 100 100 100 Oximetry (%) 01/22/20 01/22/20 01/22/20 17:40 17:50 18:00 Temperature Pulse Rate Pulse Rate [ 78 79 78 Apical] Pulse Rate [ Left Radial] Respiratory 16 19 23 H Rate Blood Pressure Blood Pressure 85/46 L 63/41 L 86/48 L [Right Arm] O2 Sat by Pulse 100 100 100 Oximetry (%) 01/22/20 18:21 Temperature Pulse Rate Pulse Rate [ 79 Apical] Pulse Rate [ Left Radial] Respiratory 17 Rate Blood Pressure Blood Pressure 95/49 L [Right Arm] O2 Sat by Pulse 100 Oximetry (%) GENERAL: Awake, alert, and fully oriented, in no acute distress. HEAD: Normal with no signs of trauma. EYES: Pupils equal, round and reactive to light, extraocular movements intact, sclera anicteric, conjunctiva clear. No lid lag. EARS, NOSE, THROAT: Ears normal, nares patent, oropharynx clear without exudates. Moist mucous membranes. NECK: Normal range of motion, supple without lymphadenopathy, JVD, or masses. LUNGS: Breath sounds equal, clear to auscultation bilaterally. No wheezes, and no crackles. No accessory muscle use. HEART: Regular rate and rhythm, normal S1 and S2, Grade II/III systolic murmur ascultated in Left 2nd intercostal space in c/w aortic stenosis murmur ABDOMEN: Soft, nontender, not distended, normoactive bowel sounds, no guarding, no rebound, no masses. No hepatomegaly or splenomegaly. MUSCULOSKELETAL: Normal range of motion at all joints. No bony deformities or tenderness. No CVA tenderness. UPPER EXTREMITIES: 2+ pulses, warm, well-perfused. No cyanosis. No clubbing. Cap refill <2 seconds. No peripheral edema. LOWER EXTREMITIES: 2+ pulses, warm, well-perfused. No calf tenderness. B/L 3+ pitting edema from ankles to lower thighs NEUROLOGICAL: Cranial nerves II-XII intact. Normal speech. Normal gait. PSYCHIATRIC: Cooperative. Good eye contact. Appropriate mood and affect. SKIN: Warm, dry, L buttock: 3 cm Stage I ulcer @ 7 o'clock position Laboratory Results - last 24 hr 01/22/20 01/22/20 01/22/20 10:45 10:45 10:45 WBC 10.8 H RBC 2.82 L Hgb 8.1 L Hct 24.9 L MCV 88.1 MCH 28.7 MCHC 32.6 RDW 16.7 H Plt Count 59 L MPV 11.0 Absolute Neuts (auto) 9.7 H Neutrophils % 90.3 H Lymphocytes % 4.7 L D Monocytes % 4.3 Eosinophils % 0.2 D Basophils % 0.5 Nucleated RBC % 0 PT with INR 20.40 H INR 1.72 H PTT (Actin FS) 55.0 H VBG pH POC VBG pCO2 POC VBG pO2 VBG HCO3 VBG O2 Sat (Michael) VBG Base Excess Sodium 139 Potassium 4.5 Chloride 107 Carbon Dioxide 23 Anion Gap 9 BUN 12.8 Creatinine 1.6 H Est GFR (CKD-EPI)AfAm 35.90 Est GFR (CKD-EPI)NonAf 30.98 POC Glucometer Random Glucose 79 Lactic Acid Calcium 8.1 L Phosphorus 2.8 Magnesium 1.7 L Total Bilirubin 2.4 H AST 43 H ALT 15 Alkaline Phosphatase 126 H Ammonia Creatine Kinase 78 Troponin I < 0.02 B-Natriuretic Peptide 459.9 H Total Protein 7.0 Albumin 1.8 L TSH 2.70 Urine Color Urine Appearance Urine pH Ur Specific [place] Urine Protein Urine Glucose (UA) Urine Ketones Urine Blood Urine Nitrite Urine Bilirubin Urine Urobilinogen Ur Leukocyte Esterase Urine WBC (Auto) Urine RBC (Auto) Urine Casts (Auto) U Pathogenic Cast Auto U Epithel Cells (Auto) Urine Bacteria (Auto) 01/22/20 01/22/20 01/22/20 10:45 10:45 10:45 WBC RBC Hgb Hct MCV MCH MCHC RDW Plt Count MPV Absolute Neuts (auto) Neutrophils % Lymphocytes % Monocytes % Eosinophils % Basophils % Nucleated RBC % PT with INR INR PTT (Actin FS) VBG pH 7.36 POC VBG pCO2 47.4 POC VBG pO2 < 49 H VBG HCO3 26.1 VBG O2 Sat (Michael) 46.0 L VBG Base Excess 0.1 Sodium Potassium Chloride Carbon Dioxide Anion Gap BUN Creatinine Est GFR (CKD-EPI)AfAm Est GFR (CKD-EPI)NonAf POC Glucometer Random Glucose Lactic Acid 3.8 H* Calcium Phosphorus Magnesium Total Bilirubin AST ALT Alkaline Phosphatase Ammonia Creatine Kinase Troponin I B-Natriuretic Peptide Total Protein Albumin TSH Urine Color Dk yellow Urine Appearance Clear Urine pH 5.5 Ur Specific [place] 1.020 Urine Protein Negative Urine Glucose (UA) Negative Urine Ketones Trace H Urine Blood 1+ H Urine Nitrite Negative Urine Bilirubin Negative Urine Urobilinogen 1.0 Ur Leukocyte Esterase Negative Urine WBC (Auto) 16 Urine RBC (Auto) 69 Urine Casts (Auto) 6 U Pathogenic Cast Auto 3 U Epithel Cells (Auto) 17 Urine Bacteria (Auto) 14 01/22/20 01/22/20 01/22/20 10:48 12:17 14:00 WBC RBC Hgb Hct MCV MCH MCHC RDW Plt Count MPV Absolute Neuts (auto) Neutrophils % Lymphocytes % Monocytes % Eosinophils % Basophils % Nucleated RBC % PT with INR INR PTT (Actin FS) VBG pH POC VBG pCO2 POC VBG pO2 VBG HCO3 VBG O2 Sat (Michael) VBG Base Excess Sodium Potassium Chloride Carbon Dioxide Anion Gap BUN Creatinine Est GFR (CKD-EPI)AfAm Est GFR (CKD-EPI)NonAf POC Glucometer 73 Random Glucose Lactic Acid 3.4 H* Calcium Phosphorus Magnesium Total Bilirubin AST ALT Alkaline Phosphatase Ammonia 74.00 H Creatine Kinase Troponin I B-Natriuretic Peptide Total Protein Albumin TSH Urine Color Urine Appearance Urine pH Ur Specific [place] Urine Protein Urine Glucose (UA) Urine Ketones Urine Blood Urine Nitrite Urine Bilirubin Urine Urobilinogen Ur Leukocyte Esterase Urine WBC (Auto) Urine RBC (Auto) Urine Casts (Auto) U Pathogenic Cast Auto U Epithel Cells (Auto) Urine Bacteria (Auto) ASSESSMENT/PLAN: 74 y/o female with a PMHx of cirrhosis, HFpEF, HTN, HLD, venous insufficiency, hepatic encephalopathy BIBEMS for chills. Febrile and hypotensive with failed fluid resuscitation in the ED requiring central line access for pressor support. Patient displays significant third spacing on physical exam. ICU consulted and patient admitted for septic shock. # CARDIOLOGY - qSOFA 1-2 (1 point for SBP < 100 +/- 1 point for lethargy/AMS) - Septic Shock (Sepsis 3- requiring vasopressor support to maintain MAP > 65 + Lactic Acid > 2) - Hypotensive (SBP < 90) s/p 3 L IV NS; central line for venous support - On Levophed - Titrate to MAP 65 - Lactic Acid downtrending, maintenance fluids and monitoring - ? Source GI (SPB, bilary) vs. vs. Cardiac - Broad spectrum antibiotic coverage with Vancomycin/Zosyn pending source - ID consult pending # PULMONARY - CT Chest with bronchiectasis - AM ABG # HEMATOLOGY - Normocytic Anemia - possibly 2/2 to chronic disease - Hb 8.1 (baseline), MCV 88.1 - Thrombocytopenia - platelets 59 (<-- 54 in 02/2019) - Hold Heparin 2/2 to bleeding risk DVT Prophylaxis: SCDs FEN: IV NS @ 75 mL/hour; Monitor Lytes; Cardiac Diet LINES: L IJ DRIPS: Levophed (4 mcg/hour) - titrated to MAP of 65 FULL CODE Dispo: We will continue to follow the patient. Thank you for this consultative opportunity. Visit type - Emergency Visit Emergency Visit: Yes ED Registration Date: 01/22/20 Care time: The patient presented to the Emergency Department on the above date and was hospitalized for further evaluation of their emergent condition. - New Patient This patient is new to me today: Yes Date on this admission: 01/23/20 - Critical Care Critical Care patient: Yes Total Critical Care Time (in minutes): 30 Critical Care Statement: The care of this patient involved high complexity decision making to prevent further life threatening deterioration of the patient's condition and/or to evaluate & treat vital organ system(s) failure or risk of failure. ATTENDING PHYSICIAN STATEMENT I saw and evaluated the patient. I reviewed the resident's note and discussed the case with the resident. I agree with the resident's findings and plan as documented. SUBJECTIVE: OBJECTIVE: ASSESSMENT AND PLAN:
[2020-01-22] MEDS ORDERED: FLUCONAZOLE 100 MG TABLET (UD) PO ONE (20:38)
[2020-01-22] MEDS ORDERED: NOREPINEPHRINE BITARTRATE 4,000 MCG in DEXTROSE 5%-WATER - 496 ML IV SCH ×2 (20:45→22:00)
[2020-01-22 20:57] LABS: LIPASE 106 U/L (73-393)
[2020-01-22] MEDS ORDERED: NOREPINEPHRINE BITARTRATE 4 MG/4 ML ML IV ONE (21:19)
[2020-01-22] MEDS ORDERED: SODIUM CHLORIDE 1,000 ML IV SCH (21:30)
[2020-01-22] MEDS ORDERED: HEPARIN NA (PORCINE) 5,000 UNITS/ML 1ML VIAL SQ SCH (22:00)
[2020-01-22] MEDS ORDERED: DEXTROSE 50%-WATER - 25 GM/50 ML VIAL IVPUSH ONE (22:15)
[2020-01-22] MEDS: MUPIROCIN 2% TOPICAL OINTMENT FOR DECOLONIZATION NS SCH (22:34)
[2020-01-22] MEDS: CHLORHEXIDINE GLUCONATE 4% CLEANSER FOR DECOLONIZATION TP SCH (22:35)
[2020-01-23] MEDS ORDERED: PIPERACILLIN/TAZOBACTAM 2.25 GM VIAL IVPB ONE ×2 (03:08→09:55)
[2020-01-23] MEDS ORDERED: DEXTROSE 5%-WATER - 50 ML IVPB ONE ×2 (03:09→09:55)
[2020-01-23] MEDS: PIPERACILLIN/TAZOB 2.25 GM 2.25 GM in DEXTROSE 5%-WATER - 50 ML IVPB SCH ×2 (03:11→10:11)
[2020-01-23 06:58] LABS: BASO % 0.1 % (0-2.0); HEMATOCRIT 22.3 % (32.4-45.2); HEMOGLOBIN 7.2 GM/dL (10.7-15.3); LYMPH % 5.5 % (8-40); MCH 28.2 pg (25.7-33.7); MCHC 32.1 g/dl (32.0-36.0); MEAN CELL VOLUME 87.8 fl (80-96); MEAN PLT VOLUME 10.7 fl (7.5-11.1); MONO % 6.5 % (3.8-10.2); NEUT % 87.9 % (42.8-82.8); PLATELET COUNT 64 K/MM3 (134-434); RBC 2.54 M/mm3 (3.60-5.2); WHITE BLOOD COUNT 21.9 K/mm3 (4.0-10.0)
[2020-01-23 07:22] LABS: ALBUMIN 1.5 g/dl (3.4-5.0); BILIRUBIN,TOTAL 2.8 mg/dL (0.2-1); BLOOD UREA NITROGEN 16.6 mg/dL (7-18); CALCIUM 7.5 mg/dL (8.5-10.1); CREATININE 1.6 mg/dL (0.55-1.3); MAGNESIUM 1.9 mg/dL (1.8-2.4); PHOSPHOROUS 3.3 mg/dL (2.5-4.9); POTASSIUM 3.6 mmol/L (3.5-5.1)
[2020-01-23] MEDS ORDERED: MAGNESIUM SULF 50% (8.12 MEQ/2 ML-1 GM VIAL) IVPB ONE (08:03)
[2020-01-23] MEDS ORDERED: VANCOMYCIN 1,250 MG in DEXTROSE 5%-WATER - 250 ML IVPB SCH (08:30)
[2020-01-23] MEDS ORDERED: VANCOMYCIN HCL 1,500 MG in DEXTROSE 5%-WATER - 500 ML IVPB ONE ×2 (09:00→09:30)
[2020-01-23] MEDS: KCL 10 MEQ IVPB 10 MEQ/100 ML INFUS.BAG IVPB SCH ×3 (09:05→10:55)
--- NOTE | 2020-01-23 09:40 | PN ---
Progress Note (short form) - Note Progress Note: ID consult dictated 68 yo female lives at home, developed rigors yesterday and brought to ED with hypotension and fever 102.6 history of cirrhosis (cryptogenic?) no dysuria, no GI symptoms, no SOB alert and cooperative sepsis bacteremia liver cirrhosis ckd ascites blood cultures 4/4 bottles GPC chains received vancomycin and zosyn to continue check vancomycin level in am-dose vancomycin by level source of bacteremia not clear consider paracentesis to r/o CBP f/u cultures repeat blood cultures in am ECHO continue zosyn for now d/w ICU staff Problem List - Problems (1) Severe sepsis Code(s): A41.9 - SEPSIS, UNSPECIFIED ORGANISM; R65.20 - SEVERE SEPSIS WITHOUT SEPTIC SHOCK (2) Bacteremia Code(s): R78.81 - BACTEREMIA (3) Chronic liver disease and cirrhosis Code(s): K74.60 - UNSPECIFIED CIRRHOSIS OF LIVER; K76.9 - LIVER DISEASE, UNSPECIFIED (4) CKD (chronic kidney disease) Code(s): N18.9 - CHRONIC KIDNEY DISEASE, UNSPECIFIED (5) Ascites Code(s): R18.8 - OTHER ASCITES
[2020-01-23 09:57] LABS: ANISOCYTOSIS 1+; MACROCYTOSIS 0; PLATELET ESTIMATE DECREASED; ROULEAU 2+
[2020-01-23] MEDS ORDERED: metoPROLOL SUCCINATE 25 MG TAB.SR.24H (FP) PO SCH (10:00)
[2020-01-23] MEDS: metoPROLOL SUCCINATE 25 MG TAB.SR.24H (FP) PO SCH (10:12)
[2020-01-23] MEDS: MUPIROCIN 2% TOPICAL OINTMENT FOR DECOLONIZATION NS SCH ×2 (10:14→21:19)
--- NOTE | 2020-01-23 11:13 | PN ---
Physical Exam: SUBJECTIVE: Patient seen and examined at bedside. She was admitted overnight. This AM she offers no new complaints. She denies VELASQUEZ, vision change and dizziness. She denies any new bleeding, hematuria, or hematochezia. She denies back pain and dysuria although reports occassional burning with urination which she attributes to dryness. OBJECTIVE: Vital Signs Period Temp Pulse Resp BP Sys/Patel Pulse Ox Last 24 Hr 97.2 F-101.1 F 59-96 12-24 63-107/41-75 95-100 GENERAL: The patient is awake, alert, and fully oriented, in no acute distress. HEAD: Normal with no signs of trauma. EYES: PERRL, extraocular movements intact, sclera anicteric, conjunctiva clear. No ptosis. ENT: Ears normal, nares patent, oropharynx clear without exudates, moist mucous membranes. NECK: Trachea midline, full range of motion, supple. LUNGS: Breath sounds equal, clear to auscultation bilaterally, no wheezes, no crackles, no accessory muscle use. HEART: Regular rate and rhythm, S1, S2. NE @ 5 mcq for hemodynamic support. ABDOMEN: Soft, nontender, nondistended, normoactive bowel sounds, no guarding, no rebound, no hepatosplenomegaly, no masses. EXTREMITIES: 2+ pulses, warm, well-perfused, no edema. NEUROLOGICAL: Cranial nerves II through XII grossly intact. Normal speech, gait not observed. PSYCH: Normal mood, normal affect. SKIN: Warm, dry, normal turgor, no rashes or lesions noted Laboratory Results - last 24 hr 01/22/20 01/22/20 01/22/20 10:45 10:45 10:45 WBC 10.8 H RBC 2.82 L Hgb 8.1 L Hct 24.9 L MCV 88.1 MCH 28.7 MCHC 32.6 RDW 16.7 H Plt Count 59 L MPV 11.0 Absolute Neuts (auto) 9.7 H Neutrophils % 90.3 H Neutrophils % (Manual) Band Neutrophils % Lymphocytes % 4.7 L D Lymphocytes % (Manual) Monocytes % 4.3 Monocytes % (Manual) Eosinophils % 0.2 D Eosinophils % (Manual) Basophils % 0.5 Basophils % (Manual) Myelocytes % (Man) Promyelocytes % (Man) Blast Cells % (Manual) Nucleated RBC % 0 Metamyelocytes Hypochromia Platelet Estimate Polychromasia Poikilocytosis Anisocytosis Macrocytosis Rouleaux PT with INR 20.40 H INR 1.72 H PTT (Actin FS) 55.0 H VBG pH POC VBG pCO2 POC VBG pO2 VBG HCO3 VBG O2 Sat (Michael) VBG Base Excess Sodium 139 Potassium 4.5 Chloride 107 Carbon Dioxide 23 Anion Gap 9 BUN 12.8 Creatinine 1.6 H Est GFR (CKD-EPI)AfAm 35.90 Est GFR (CKD-EPI)NonAf 30.98 POC Glucometer Random Glucose 79 Lactic Acid Calcium 8.1 L Phosphorus 2.8 Magnesium 1.7 L Total Bilirubin 2.4 H AST 43 H ALT 15 Alkaline Phosphatase 126 H Ammonia Creatine Kinase 78 Troponin I < 0.02 B-Natriuretic Peptide 459.9 H Total Protein 7.0 Albumin 1.8 L Lipase 106 TSH 2.70 Urine Color Urine Appearance Urine pH Ur Specific [place] Urine Protein Urine Glucose (UA) Urine Ketones Urine Blood Urine Nitrite Urine Bilirubin Urine Urobilinogen Ur Leukocyte Esterase Urine WBC (Auto) Urine RBC (Auto) Urine Casts (Auto) U Pathogenic Cast Auto U Epithel Cells (Auto) Urine Bacteria (Auto) COVID-19 (RABIA) 01/22/20 01/22/20 01/22/20 10:45 10:45 10:45 WBC RBC Hgb Hct MCV MCH MCHC RDW Plt Count MPV Absolute Neuts (auto) Neutrophils % Neutrophils % (Manual) Band Neutrophils % Lymphocytes % Lymphocytes % (Manual) Monocytes % Monocytes % (Manual) Eosinophils % Eosinophils % (Manual) Basophils % Basophils % (Manual) Myelocytes % (Man) Promyelocytes % (Man) Blast Cells % (Manual) Nucleated RBC % Metamyelocytes Hypochromia Platelet Estimate Polychromasia Poikilocytosis Anisocytosis Macrocytosis Rouleaux PT with INR INR PTT (Actin FS) VBG pH 7.36 POC VBG pCO2 47.4 POC VBG pO2 < 49 H VBG HCO3 26.1 VBG O2 Sat (Michael) 46.0 L VBG Base Excess 0.1 Sodium Potassium Chloride Carbon Dioxide Anion Gap BUN Creatinine Est GFR (CKD-EPI)AfAm Est GFR (CKD-EPI)NonAf POC Glucometer Random Glucose Lactic Acid 3.8 H* Calcium Phosphorus Magnesium Total Bilirubin AST ALT Alkaline Phosphatase Ammonia Creatine Kinase Troponin I B-Natriuretic Peptide Total Protein Albumin Lipase TSH Urine Color Dk yellow Urine Appearance Clear Urine pH 5.5 Ur Specific [place] 1.020 Urine Protein Negative Urine Glucose (UA) Negative Urine Ketones Trace H Urine Blood 1+ H Urine Nitrite Negative Urine Bilirubin Negative Urine Urobilinogen 1.0 Ur Leukocyte Esterase Negative Urine WBC (Auto) 16 Urine RBC (Auto) 69 Urine Casts (Auto) 6 U Pathogenic Cast Auto 3 U Epithel Cells (Auto) 17 Urine Bacteria (Auto) 14 COVID-19 (RABIA) 01/22/20 01/22/20 01/22/20 11:10 12:17 14:00 WBC RBC Hgb Hct MCV MCH MCHC RDW Plt Count MPV Absolute Neuts (auto) Neutrophils % Neutrophils % (Manual) Band Neutrophils % Lymphocytes % Lymphocytes % (Manual) Monocytes % Monocytes % (Manual) Eosinophils % Eosinophils % (Manual) Basophils % Basophils % (Manual) Myelocytes % (Man) Promyelocytes % (Man) Blast Cells % (Manual) Nucleated RBC % Metamyelocytes Hypochromia Platelet Estimate Polychromasia Poikilocytosis Anisocytosis Macrocytosis Rouleaux PT with INR INR PTT (Actin FS) VBG pH POC VBG pCO2 POC VBG pO2 VBG HCO3 VBG O2 Sat (Michael) VBG Base Excess Sodium Potassium Chloride Carbon Dioxide Anion Gap BUN Creatinine Est GFR (CKD-EPI)AfAm Est GFR (CKD-EPI)NonAf POC Glucometer Random Glucose Lactic Acid 3.4 H* Calcium Phosphorus Magnesium Total Bilirubin AST ALT Alkaline Phosphatase Ammonia 74.00 H Creatine Kinase Troponin I B-Natriuretic Peptide Total Protein Albumin Lipase TSH Urine Color Urine Appearance Urine pH Ur Specific [place] Urine Protein Urine Glucose (UA) Urine Ketones Urine Blood Urine Nitrite Urine Bilirubin Urine Urobilinogen Ur Leukocyte Esterase Urine WBC (Auto) Urine RBC (Auto) Urine Casts (Auto) U Pathogenic Cast Auto U Epithel Cells (Auto) Urine Bacteria (Auto) COVID-19 (RABIA) Not detected 01/22/20 01/23/20 01/23/20 21:49 00:07 05:53 WBC 21.9 H RBC 2.54 L Hgb 7.2 L Hct 22.3 L MCV 87.8 MCH 28.2 MCHC 32.1 RDW 17.0 H Plt Count 64 L MPV 10.7 Absolute Neuts (auto) 19.2 H Neutrophils % 87.9 H Neutrophils % (Manual) 84.7 H Band Neutrophils % 7.1 Lymphocytes % 5.5 L Lymphocytes % (Manual) 4.1 L D Monocytes % 6.5 Monocytes % (Manual) 3 L Eosinophils % 0.0 D Eosinophils % (Manual) 1.0 D Basophils % 0.1 Basophils % (Manual) 0.0 Myelocytes % (Man) 0 Promyelocytes % (Man) 0 Blast Cells % (Manual) 0 Nucleated RBC % 0 Metamyelocytes 0 Hypochromia 1+ Platelet Estimate Decreased Polychromasia 1+ Poikilocytosis 0 Anisocytosis 1+ Macrocytosis 0 Rouleaux 2+ PT with INR INR PTT (Actin FS) VBG pH POC VBG pCO2 POC VBG pO2 VBG HCO3 VBG O2 Sat (Michael) VBG Base Excess Sodium Potassium Chloride Carbon Dioxide Anion Gap BUN Creatinine Est GFR (CKD-EPI)AfAm Est GFR (CKD-EPI)NonAf POC Glucometer 84 Random Glucose Lactic Acid 2.8 H* Calcium Phosphorus Magnesium Total Bilirubin AST ALT Alkaline Phosphatase Ammonia Creatine Kinase Troponin I B-Natriuretic Peptide Total Protein Albumin Lipase TSH Urine Color Urine Appearance Urine pH Ur Specific [place] Urine Protein Urine Glucose (UA) Urine Ketones Urine Blood Urine Nitrite Urine Bilirubin Urine Urobilinogen Ur Leukocyte Esterase Urine WBC (Auto) Urine RBC (Auto) Urine Casts (Auto) U Pathogenic Cast Auto U Epithel Cells (Auto) Urine Bacteria (Auto) COVID-19 (RABIA) 01/23/20 01/23/20 01/23/20 05:53 05:53 08:28 WBC RBC Hgb Hct MCV MCH MCHC RDW Plt Count MPV Absolute Neuts (auto) Neutrophils % Neutrophils % (Manual) Band Neutrophils % Lymphocytes % Lymphocytes % (Manual) Monocytes % Monocytes % (Manual) Eosinophils % Eosinophils % (Manual) Basophils % Basophils % (Manual) Myelocytes % (Man) Promyelocytes % (Man) Blast Cells % (Manual) Nucleated RBC % Metamyelocytes Hypochromia Platelet Estimate Polychromasia Poikilocytosis Anisocytosis Macrocytosis Rouleaux PT with INR INR PTT (Actin FS) VBG pH POC VBG pCO2 POC VBG pO2 VBG HCO3 VBG O2 Sat (Michael) VBG Base Excess Sodium 139 Potassium 3.6 Chloride 108 H Carbon Dioxide 24 Anion Gap 6 L BUN 16.6 Creatinine 1.6 H Est GFR (CKD-EPI)AfAm 35.90 Est GFR (CKD-EPI)NonAf 30.98 POC Glucometer 91 Random Glucose 95 Lactic Acid Calcium 7.5 L Phosphorus 3.3 Magnesium 1.9 Total Bilirubin 2.8 H AST 35 ALT 13 Alkaline Phosphatase 80 Ammonia 25.30 Creatine Kinase Troponin I B-Natriuretic Peptide Total Protein 6.0 L Albumin 1.5 L Lipase TSH Urine Color Urine Appearance Urine pH Ur Specific [place] Urine Protein Urine Glucose (UA) Urine Ketones Urine Blood Urine Nitrite Urine Bilirubin Urine Urobilinogen Ur Leukocyte Esterase Urine WBC (Auto) Urine RBC (Auto) Urine Casts (Auto) U Pathogenic Cast Auto U Epithel Cells (Auto) Urine Bacteria (Auto) COVID-19 (RABIA) 01/23/20 09:30 WBC RBC Hgb Hct MCV MCH MCHC RDW Plt Count MPV Absolute Neuts (auto) Neutrophils % Neutrophils % (Manual) Band Neutrophils % Lymphocytes % Lymphocytes % (Manual) Monocytes % Monocytes % (Manual) Eosinophils % Eosinophils % (Manual) Basophils % Basophils % (Manual) Myelocytes % (Man) Promyelocytes % (Man) Blast Cells % (Manual) Nucleated RBC % Metamyelocytes Hypochromia Platelet Estimate Polychromasia Poikilocytosis Anisocytosis Macrocytosis Rouleaux PT with INR INR PTT (Actin FS) VBG pH POC VBG pCO2 POC VBG pO2 VBG HCO3 VBG O2 Sat (Michael) VBG Base Excess Sodium Potassium Chloride Carbon Dioxide Anion Gap BUN Creatinine Est GFR (CKD-EPI)AfAm Est GFR (CKD-EPI)NonAf POC Glucometer Random Glucose Lactic Acid 2.4 H* Calcium Phosphorus Magnesium Total Bilirubin AST ALT Alkaline Phosphatase Ammonia Creatine Kinase Troponin I B-Natriuretic Peptide Total Protein Albumin Lipase TSH Urine Color Urine Appearance Urine pH Ur Specific [place] Urine Protein Urine Glucose (UA) Urine Ketones Urine Blood Urine Nitrite Urine Bilirubin Urine Urobilinogen Ur Leukocyte Esterase Urine WBC (Auto) Urine RBC (Auto) Urine Casts (Auto) U Pathogenic Cast Auto U Epithel Cells (Auto) Urine Bacteria (Auto) COVID-19 (RABIA) Active Medications Generic Name Dose Route Start Last Admin Trade Name Freq PRN Reason Stop Dose Admin Acetaminophen 1,000 mg 01/22/20 21:59 Tylenol - PO Q6H PRN FEVER Chlorhexidine Gluconate 1 applic 01/22/20 22:00 01/22/20 22:35 Hibiclens For Decolonization - TP 1 applic HS TAMMY Administration Sodium Chloride 1,000 mls @ 75 mls/hr 01/22/20 21:30 01/22/20 21:35 Normal Saline - IV 75 mls/hr ASDIR TAMMY Administration Piperacillin Sod/Tazobactam 50 mls @ 100 mls/hr 01/23/20 02:00 01/23/20 10:11 Sod 2.25 gm/ Dextrose IVPB 100 mls/hr Q8H-IV TAMMY Administration Protocol Norepinephrine Bitartrate 4, 500 mls @ 37.5 mls/hr 01/22/20 22:00 01/22/20 22:36 000 mcg/ Dextrose IV Not Given TITR TAMMY Protocol 5 MCG/MIN Potassium Chloride 10 meq in 100 mls @ 100 mls/hr 01/23/20 08:15 01/23/20 10:11 Potassium Chloride 10 Meq Premix Ivpb - IVPB 01/23/20 11:14 100 mls/hr Q60M TAMMY Administration Vancomycin HCl 1,500 mg/ 500 mls @ 250 mls/hr 01/23/20 09:30 Dextrose IVPB 01/23/20 11:29 ONCE ONE Protocol Metoprolol Succinate 25 mg 01/23/20 10:00 01/23/20 10:12 Toprol Xl - PO 25 mg DAILY TAMMY Administration Mupirocin 1 applic 01/22/20 22:00 01/23/20 10:14 Bactroban Ointment (For Decolonization) - NS 01/27/20 21:59 1 applic BID TAMMY Administration ASSESSMENT/PLAN: 74 y/o female PMH HTN, HFpEF, HLD, venous insufficiency, cirrhosis (etiology unclear), hepatic encephalopathy BIBEMS for shaking chills. In the ED she was found to be febrile and hypotensive with failed fluid resuscitation. She is admitted to the ICU for care of septic shock; blood cx pre-gustafson G+ cocci in corinne ins. # CARDIOLOGY Septic Shock Levophed 5 LR @ 75 # PULMONARY/ID CT Chest with bronchiectasis, no h/o TB or other poss. sources from pt or primary Saturating 100% on RA Covid NEGATIVE Blood cx pre-gustafson G+ cocci in chains Vancomycin and ceftriaxone Consult ID # [id number] Normocytic Anemia Hb drop today. F/u FOBT Transfuse below Hb 7 Thrombocytopenia - platelets 59 (<-- 54 in 02/2019) Hold Heparin 2/2 to bleeding risk # GI Hb drop today. F/u FOBT H/o cirrhosis of unclear etiology, no h/o IVDU or other poss/ sources; awaiting call back from GI. Pt denies seeing GI out-pt. # Renal Cr 1.6 UO 330 cc # DVT Prophylaxis: SCDs # FEN LR @ 75 mL/hour Monitor Low sodium diet LINES: L IJ DRIPS: Levophed 5 mcg/hour FULL CODE Dispo: ICU monitoring Visit type - Emergency Visit Emergency Visit: No - New Patient This patient is new to me today: Yes Date on this admission: 01/23/20 - Critical Care Critical Care patient: Yes Total Critical Care Time (in minutes): 36 Critical Care Statement: The care of this patient involved high complexity decision making to prevent further life threatening deterioration of the patient's condition and/or to evaluate & treat vital organ system(s) failure or risk of failure. ATTENDING PHYSICIAN STATEMENT I saw and evaluated the patient. I reviewed the resident's note and discussed the case with the resident. I agree with the resident's findings and plan as documented. SUBJECTIVE: OBJECTIVE: ASSESSMENT AND PLAN:
--- NOTE | 2020-01-23 11:24 | PN ---
Teaching Attending Note Name of Resident: Nitish Bowen ATTENDING PHYSICIAN STATEMENT I saw and evaluated the patient. I reviewed the resident's note and discussed the case with the resident. I agree with the resident's findings and plan as documented. SUBJECTIVE: Patient seen and examined in the ICU. Awake and alert. Some mild discomfort of her right knee (chronic). No CP or SOB. NE @ 5 mcq for hemodynamic support. Intake & Output 01/20/20 01/21/20 01/22/20 01/23/20 23:59 23:59 23:59 23:59 Intake Total 3350 991.1 Output Total 330 Balance 3020 991.1 Weight 236 lb 237 lb 9.6 oz Last Vital Signs Temp Pulse Resp BP Pulse Ox 97.4 F L 60 18 100/55 L 100 01/23/20 10:00 01/23/20 10:00 01/23/20 10:00 01/23/20 10:00 01/23/20 08:00 Active Medications Acetaminophen (Tylenol -) 1,000 mg PO Q6H PRN PRN Reason: FEVER Chlorhexidine Gluconate (Hibiclens For Decolonization -) 1 applic TP HS TAMMY Last Admin: 01/22/20 22:35 Dose: 1 applic Documented by: Piperacillin Sod/Tazobactam (Sod 2.25 gm/ Dextrose) 50 mls @ 100 mls/hr IVPB Q8H-IV TAMMY; Protocol Last Admin: 01/23/20 10:11 Dose: 100 mls/hr Documented by: Norepinephrine Bitartrate 4, (000 mcg/ Dextrose) 500 mls @ 37.5 mls/hr IV TITR TAMMY; Protocol Last Admin: 01/22/20 22:36 Dose: Not Given Documented by: Vancomycin HCl 1,500 mg/ (Dextrose) 500 mls @ 250 mls/hr IVPB ONCE ONE; Protocol Stop: 01/23/20 11:29 Lactated Ringer's (Lactated Ringers Solution) 1,000 ml in 1,000 mls @ 75 mls/hr IV ASDIR TAMMY Metoprolol Succinate (Toprol Xl -) 25 mg PO DAILY TAMMY Last Admin: 01/23/20 10:12 Dose: 25 mg Documented by: Mupirocin (Bactroban Ointment (For Decolonization) -) 1 applic NS BID TAMMY Stop: 01/27/20 21:59 Last Admin: 01/23/20 10:14 Dose: 1 applic Documented by: GENERAL: Awake, alert, and fully oriented, in no acute distress. HEAD: Normal with no signs of trauma. EYES: Pupils equal, round and reactive to light, extraocular movements intact, sclera anicteric, conjunctiva clear. No lid lag. EARS, NOSE, THROAT: Ears normal, nares patent, oropharynx clear without exudates. Moist mucous membranes. NECK: Normal range of motion, supple without lymphadenopathy, JVD, or masses. LUNGS: Breath sounds equal, clear to auscultation bilaterally. No wheezes, and no crackles. No accessory muscle use. HEART: Regular rate and rhythm, normal S1 and S2, (+) ESM ABDOMEN: Soft, nontender, not distended, normoactive bowel sounds, no guarding, no rebound, no masses. No hepatomegaly or splenomegaly. MUSCULOSKELETAL: Normal range of motion at all joints. No bony deformities or tenderness. No CVA tenderness. UPPER EXTREMITIES: 2+ pulses, warm, well-perfused. No cyanosis. No clubbing. Cap refill <2 seconds. No peripheral edema. LOWER EXTREMITIES: (+) 4 edema, warm NEUROLOGICAL: Non-focal PSYCHIATRIC: Cooperative. Good eye contact. Appropriate mood and affect. SKIN: Warm, dry, L buttock: 3 cm Stage I ulcer @ 7 o'clock position Laboratory Results - last 24 hr 01/22/20 01/22/20 01/22/20 10:45 10:45 10:45 WBC 10.8 H RBC 2.82 L Hgb 8.1 L Hct 24.9 L MCV 88.1 MCH 28.7 MCHC 32.6 RDW 16.7 H Plt Count 59 L MPV 11.0 Absolute Neuts (auto) 9.7 H Neutrophils % 90.3 H Lymphocytes % 4.7 L D Monocytes % 4.3 Eosinophils % 0.2 D Basophils % 0.5 Nucleated RBC % 0 PT with INR 20.40 H INR 1.72 H PTT (Actin FS) 55.0 H VBG pH POC VBG pCO2 POC VBG pO2 VBG HCO3 VBG O2 Sat (Michael) VBG Base Excess Sodium 139 Potassium 4.5 Chloride 107 Carbon Dioxide 23 Anion Gap 9 BUN 12.8 Creatinine 1.6 H Est GFR (CKD-EPI)AfAm 35.90 Est GFR (CKD-EPI)NonAf 30.98 POC Glucometer Random Glucose 79 Lactic Acid Calcium 8.1 L Phosphorus 2.8 Magnesium 1.7 L Total Bilirubin 2.4 H AST 43 H ALT 15 Alkaline Phosphatase 126 H Ammonia Creatine Kinase 78 Troponin I < 0.02 B-Natriuretic Peptide 459.9 H Total Protein 7.0 Albumin 1.8 L TSH 2.70 Urine Color Urine Appearance Urine pH Ur Specific [place] Urine Protein Urine Glucose (UA) Urine Ketones Urine Blood Urine Nitrite Urine Bilirubin Urine Urobilinogen Ur Leukocyte Esterase Urine WBC (Auto) Urine RBC (Auto) Urine Casts (Auto) U Pathogenic Cast Auto U Epithel Cells (Auto) Urine Bacteria (Auto) 01/22/20 01/22/20 01/22/20 10:45 10:45 10:45 WBC RBC Hgb Hct MCV MCH MCHC RDW Plt Count MPV Absolute Neuts (auto) Neutrophils % Lymphocytes % Monocytes % Eosinophils % Basophils % Nucleated RBC % PT with INR INR PTT (Actin FS) VBG pH 7.36 POC VBG pCO2 47.4 POC VBG pO2 < 49 H VBG HCO3 26.1 VBG O2 Sat (Michael) 46.0 L VBG Base Excess 0.1 Sodium Potassium Chloride Carbon Dioxide Anion Gap BUN Creatinine Est GFR (CKD-EPI)AfAm Est GFR (CKD-EPI)NonAf POC Glucometer Random Glucose Lactic Acid 3.8 H* Calcium Phosphorus Magnesium Total Bilirubin AST ALT Alkaline Phosphatase Ammonia Creatine Kinase Troponin I B-Natriuretic Peptide Total Protein Albumin TSH Urine Color Dk yellow Urine Appearance Clear Urine pH 5.5 Ur Specific [place] 1.020 Urine Protein Negative Urine Glucose (UA) Negative Urine Ketones Trace H Urine Blood 1+ H Urine Nitrite Negative Urine Bilirubin Negative Urine Urobilinogen 1.0 Ur Leukocyte Esterase Negative Urine WBC (Auto) 16 Urine RBC (Auto) 69 Urine Casts (Auto) 6 U Pathogenic Cast Auto 3 U Epithel Cells (Auto) 17 Urine Bacteria (Auto) 14 01/22/20 01/22/20 01/22/20 10:48 12:17 14:00 WBC RBC Hgb Hct MCV MCH MCHC RDW Plt Count MPV Absolute Neuts (auto) Neutrophils % Lymphocytes % Monocytes % Eosinophils % Basophils % Nucleated RBC % PT with INR INR PTT (Actin FS) VBG pH POC VBG pCO2 POC VBG pO2 VBG HCO3 VBG O2 Sat (Michael) VBG Base Excess Sodium Potassium Chloride Carbon Dioxide Anion Gap BUN Creatinine Est GFR (CKD-EPI)AfAm Est GFR (CKD-EPI)NonAf POC Glucometer 73 Random Glucose Lactic Acid 3.4 H* Calcium Phosphorus Magnesium Total Bilirubin AST ALT Alkaline Phosphatase Ammonia 74.00 H Creatine Kinase Troponin I B-Natriuretic Peptide Total Protein Albumin TSH Urine Color Urine Appearance Urine pH Ur Specific [place] Urine Protein Urine Glucose (UA) Urine Ketones Urine Blood Urine Nitrite Urine Bilirubin Urine Urobilinogen Ur Leukocyte Esterase Urine WBC (Auto) Urine RBC (Auto) Urine Casts (Auto) U Pathogenic Cast Auto U Epithel Cells (Auto) Urine Bacteria (Auto) ASSESSMENT/PLAN: Septic Shock due to Gm (+) Bacteremia R/O UTI R/O GI source Cirrhosis : Etiology to be determined CHF HTN HPL Venous Insufficiency Hepatic Encephalopathy Bronchiectasis Check CVP to guide IVF resuscitation ABX per ID Local wound care Pressors to maintain MAP > 65 Need to get further medical information from PMD and GI Check Quantiferon VTE prophylaxis Requires ICU monitoring for pressors Dr Bauman Critical care time spent in reviewing chart, evaluating patient and formulating plan - 36 minutes.
[2020-01-23 11:58] LABS: BASO % 0.1 % (0-2.0); EOS % 0.5 % (0-4.5); HEMATOCRIT 21.2 % (32.4-45.2); LYMPH % 5.9 % (8-40); MCH 28.2 pg (25.7-33.7); MEAN CELL VOLUME 88.1 fl (80-96); MEAN PLT VOLUME 9.6 fl (7.5-11.1); MONO % 5.7 % (3.8-10.2); NEUT % 87.8 % (42.8-82.8); PLATELET COUNT 50 K/MM3 (134-434); RBC 2.41 M/mm3 (3.60-5.2); WHITE BLOOD COUNT 14.3 K/mm3 (4.0-10.0)
[2020-01-23 12:03] LABS: HEMOGLOBIN 6.8 GM/dL (10.7-15.3)
[2020-01-23] MEDS: LACTATED RINGERS SOLUTION 1,000 ML/1,000 ML INFUS.BAG IV SCH (13:53)
--- NOTE | 2020-01-23 15:35 | ECHO ---
Version: 1 Name: FRANSISCO BURDEN Exam: Adult Echocardiogram Study Date: 01/23/2020, 1:08 PM Age: 74 Years MMode/2D Measurements & Calculations IVSd: 0.98 cm LVIDs: 2.9 cm LVIDd: 4.4 cm LVPWd: 1.00 cm LAV (MOD-bp): 110.0 ml ACS: 1.84 cm Ao root diam: 3.6 cm LVOT diam: 2.02 cm LA dimension: 4.2 cm Doppler Measurements & Calculations MV E max valente: 99.3 cm/sec Med E/e': 20.4 MV A max valente: 119.5 cm/sec Med Peak E' Valente: 4.9 cm/sec MV E/A: 0.83 Lat E/e': 14.8 Lat Peak E' Valente: 6.7 cm/sec Ao max P.9 mmHg DAVID(I,D): 3.0 cm Ao mean P.8 mmHg LV V1 mean: 99.4 cm/sec Ao V2 max: 157.5 cm/sec LV V1 mean P.6 mmHg TR max valente: 240.7 cm/sec TR max P.2 mmHg Left Ventricle The left ventricular size, thickness and function are normal. EF 62%. Abnormal diastolic relaxation. Right Ventricle The right ventricular systolic function is grossly normal. Atria Moderate to severe LA enlargement. Right atrial size is normal. Mitral Valve There is moderate mitral annular calcification. Tricuspid Valve The tricuspid valve is normal in structure and function. There is mild tricuspid regurgitation. PASP 28 mmHg. Aortic Valve Fibocalcific changes to the aortic valve without aortic stenosis. Pulmonic Valve The pulmonic valve is normal in structure and function. Great Vessels The aortic root is not well visualized. Tech Comments TDS due to body habitus. Patient scanned sitting up. Summary Statements The left ventricular size, thickness and function are normal Abnormal diastolic relaxation The right ventricular systolic function is grossly normal. There is moderate mitral annular calcification. Moderate to severe LA enlargement There is mild tricuspid regurgitation. Fibocalcific changes to the aortic valve without aortic stenosis. EF 62% PASP 28 mmHg MD Remi Knapp 01/23/2020, 3:35 PM Ordering Physician: Tonia Marlow Referring Physician: TONIA MARLOW Performed By: Lucie Garza
--- NOTE | 2020-01-23 17:19 | CONS ---
DATE OF CONSULTATION: DATE OF DICTATION: 01/23/2020 INFECTIOUS DISEASE CONSULTATION HISTORY OF PRESENT ILLNESS: This is a 74-year-old woman. She lives at home with her son. She has a history of liver cirrhosis. Reports she takes lactulose on a chronic basis. She developed rigors yesterday and was shivering, and he brought her to the emergency room. Per the ER note, the son reports she had been more lethargic than usual, though she is at present alert and has really no systemic complaints. She denies abdominal pain, chest pain, shortness of breath. She has had no GI symptoms. Has chronic diarrhea due to her lactulose, and no dysuria. She was evaluated in the ER. She had a fever of 102.6. She was hypotensive and admitted to the ICU. She received fluids as well in the ICU. She is currently awake and alert without any complaints. PAST MEDICAL HISTORY: Notable for history of liver cirrhosis, heart failure, hypertension, hyperlipidemia, venous insufficiency, hepatic encephalopathy. She denies any surgery in the past. She has no known drug allergies. SOCIAL HISTORY: She resides at home with her son. She is originally from [place]. No history of any substance use. Her primary doctor is Dr. Lieberman. MEDICATION: Her medications include: 1. Furosemide. 2. Spironolactone. 3. Metoprolol. 4. Lactulose. REVIEW OF SYSTEMS: As per HPI. PHYSICAL EXAMINATION: Vital Signs: Current temperature, she is afebrile, 97.4, pulse of 60, blood pressure 100/55, respiratory rate 18, she is saturating 100% on 2 L. HEENT: Normocephalic. Eyes are anicteric. Neck: Supple. Lungs: Clear to auscultation. She has diminished breath sounds at the bases. Abdomen: Soft. Extremities: She has edema of both her legs as well as her subcutaneous skin in her abdomen. LABORATORY: Notable for admitting white count of 10.8 that then kylie to 21.9; today is 14.3. Hemoglobin 6.8, platelets are 50,000. Her lactic acid on admission was 3.8 and came down to 2.8. Her BUN and creatinine are 16 and 1.6 with a total of bilirubin of 2.8 and normal LFTs. Ammonia is 25. Her albumin is 1.5. She had CAT scans of her chest, abdomen, and pelvis as well as head. Head CT was no acute intracranial pathology. Chest and abdomen were notable for a large amount of ascites, increased concentric subcutaneous edema, hepatic cirrhosis, splenomegaly, and ascites, cholelithiasis. She has bilateral upper lobe cystic bronchiectasis as well. IMPRESSION: In summary, this is a 74-year-old woman with sepsis, bacteremia, liver cirrhosis, chronic kidney disease. Blood cultures, 4 bottles are growing gram-positive cocci in chains. She received vancomycin and Zosyn, would continue. Would check a vancomycin level. Source of bacteremia is not clear. Consider paracentesis to rule out SBP. Follow up cultures. Repeat blood cultures in the morning. Echo. Continue Zosyn for now. Further recommendations to follow. Case was discussed with ICU staff. SUE BARRY M.D. [id number] MTDGonzalo
[2020-01-23] MEDS: ACETAMINOPHEN 500 MG TABLET (FP) PO PRN (17:44)
[2020-01-23] MEDS ORDERED: NOREPINEPHRINE BITARTRATE 8,000 MCG/500 ML BAG IVPB ONE (19:39)
[2020-01-23] MEDS: CHLORHEXIDINE GLUCONATE 4% CLEANSER FOR DECOLONIZATION TP SCH (21:09)
[2020-01-23] MEDS: NOREPINEPHRINE BITARTRATE 8,000 MCG/500 ML BAG IVPB SCH (21:20)
[2020-01-24 00:19] LABS: HEMATOCRIT 25.6 % (32.4-45.2); HEMOGLOBIN 8.3 GM/dL (10.7-15.3); MCH 28.5 pg (25.7-33.7); MCHC 32.6 g/dl (32.0-36.0); MEAN CELL VOLUME 87.6 fl (80-96); MEAN PLT VOLUME 9.8 fl (7.5-11.1); PLATELET COUNT 66 K/MM3 (134-434); RBC 2.93 M/mm3 (3.60-5.2); RDW 16.5 % (11.6-15.6); WHITE BLOOD COUNT 16.6 K/mm3 (4.0-10.0)
[2020-01-24] MEDS ORDERED: DEXTROSE 5%-WATER - 50 ML IVPB ONE ×4 (01:30→21:03)
[2020-01-24] MEDS ORDERED: PIPERACILLIN/TAZOBACTAM 2.25 GM VIAL IVPB ONE ×2 (01:30→10:10)
[2020-01-24] MEDS: PIPERACILLIN/TAZOB 2.25 GM 2.25 GM in DEXTROSE 5%-WATER - 50 ML IVPB SCH ×2 (01:35→10:21)
[2020-01-24 05:52] LABS: HEMATOCRIT 24.8 % (32.4-45.2); HEMOGLOBIN 8.2 GM/dL (10.7-15.3); MCH 28.6 pg (25.7-33.7); MEAN CELL VOLUME 86.8 fl (80-96); MEAN PLT VOLUME 9.9 fl (7.5-11.1); PLATELET COUNT 66 K/MM3 (134-434); RBC 2.86 M/mm3 (3.60-5.2); RDW 16.4 % (11.6-15.6); WHITE BLOOD COUNT 14.9 K/mm3 (4.0-10.0)
[2020-01-24 06:17] LABS: ALBUMIN 1.5 g/dl (3.4-5.0); BILIRUBIN,TOTAL 2.1 mg/dL (0.2-1); BLOOD UREA NITROGEN 17.7 mg/dL (7-18); CALCIUM 7.6 mg/dL (8.5-10.1); CREATININE 1.6 mg/dL (0.55-1.3); MAGNESIUM 1.9 mg/dL (1.8-2.4); PHOSPHOROUS 2.4 mg/dL (2.5-4.9); POTASSIUM 3.6 mmol/L (3.5-5.1); TOT PROT 6.1 g/dl (6.4-8.2)
[2020-01-24] MEDS ORDERED: MAGNESIUM SULF 50% (8.12 MEQ/2 ML-1 GM VIAL) IVPB ONE (08:15)
[2020-01-24] MEDS ORDERED: NAPH,MB-DB/K PH,MBDB POWDER PACKET PO ONE (08:15)
[2020-01-24] MEDS: KCL 10 MEQ IVPB 10 MEQ/100 ML INFUS.BAG IVPB SCH ×3 (10:21→15:52)
[2020-01-24] MEDS: metoPROLOL SUCCINATE 25 MG TAB.SR.24H (FP) PO SCH (10:23)
[2020-01-24] MEDS: MUPIROCIN 2% TOPICAL OINTMENT FOR DECOLONIZATION NS SCH ×2 (10:24→21:07)
--- NOTE | 2020-01-24 11:23 | PN ---
Physical Exam: SUBJECTIVE: Patient seen and examined at bedside. There were no acute events overnight. This AM she offers no new complaints. ROS neg. She denies h/o dental abscess or other oral cavity infection. OBJECTIVE: Vital Signs Period Temp Pulse Resp BP Sys/Patel Pulse Ox Last 24 Hr 72 F-98.4 F 59-78 14-22 92-142/51-68 100-100 GENERAL: The patient is awake, alert, and fully oriented, in no acute distress. HEAD: Normal with no signs of trauma. EYES: PERRL, extraocular movements intact, sclera anicteric, conjunctiva clear. No ptosis. ENT: Ears normal, nares patent, oropharynx clear without exudates, moist mucous membranes. NECK: Trachea midline, full range of motion, supple. LUNGS: Breath sounds equal, clear to auscultation bilaterally, no wheezes, no crackles, no accessory muscle use. HEART: Regular rate and rhythm, S1, S2. NE @ 5 mcq for hemodynamic support. ABDOMEN: Soft, nontender, nondistended, normoactive bowel sounds, no guarding, no rebound, no hepatosplenomegaly, no masses. EXTREMITIES: 2+ pulses, warm, well-perfused, no edema. NEUROLOGICAL: Cranial nerves II through XII grossly intact. Normal speech, gait not observed. PSYCH: Normal mood, normal affect. SKIN: Warm, dry, normal turgor, no rashes or lesions noted Laboratory Results - last 24 hr 01/23/20 01/23/20 01/23/20 11:30 12:22 14:15 WBC 14.3 H RBC 2.41 L Hgb 6.8 L* Hct 21.2 L MCV 88.1 MCH 28.2 MCHC 32.0 RDW 17.0 H Plt Count 50 L D MPV 9.6 D Absolute Neuts (auto) 12.6 H Neutrophils % 87.8 H Lymphocytes % 5.9 L Monocytes % 5.7 Eosinophils % 0.5 D Basophils % 0.1 Nucleated RBC % 0 Sodium Potassium Chloride Carbon Dioxide Anion Gap BUN Creatinine Est GFR (CKD-EPI)AfAm Est GFR (CKD-EPI)NonAf POC Glucometer Random Glucose Calcium Phosphorus Magnesium Total Bilirubin AST ALT Alkaline Phosphatase Total Protein Albumin Stool Occult Blood Negative Random Vancomycin Blood Type O POSITIVE Antibody Screen Negative Crossmatch See Detail 01/23/20 01/23/20 01/24/20 21:17 23:55 05:30 WBC 16.6 H RBC 2.93 L Hgb 8.3 L Hct 25.6 L D MCV 87.6 MCH 28.5 MCHC 32.6 RDW 16.5 H Plt Count 66 L D MPV 9.8 Absolute Neuts (auto) Neutrophils % Lymphocytes % Monocytes % Eosinophils % Basophils % Nucleated RBC % Sodium Potassium Chloride Carbon Dioxide Anion Gap BUN Creatinine Est GFR (CKD-EPI)AfAm Est GFR (CKD-EPI)NonAf POC Glucometer 134 Random Glucose Calcium Phosphorus Magnesium Total Bilirubin AST ALT Alkaline Phosphatase Total Protein Albumin Stool Occult Blood Random Vancomycin 4.5 L Blood Type Antibody Screen Crossmatch 01/24/20 01/24/20 05:30 05:30 WBC 14.9 H RBC 2.86 L Hgb 8.2 L Hct 24.8 L MCV 86.8 MCH 28.6 MCHC 33.0 RDW 16.4 H Plt Count 66 L MPV 9.9 Absolute Neuts (auto) Neutrophils % Lymphocytes % Monocytes % Eosinophils % Basophils % Nucleated RBC % Sodium 136 Potassium 3.6 Chloride 107 Carbon Dioxide 23 Anion Gap 7 L BUN 17.7 Creatinine 1.6 H Est GFR (CKD-EPI)AfAm 35.90 Est GFR (CKD-EPI)NonAf 30.98 POC Glucometer Random Glucose 99 Calcium 7.6 L Phosphorus 2.4 L Magnesium 1.9 Total Bilirubin 2.1 H AST 32 ALT 12 L Alkaline Phosphatase 92 Total Protein 6.1 L Albumin 1.5 L Stool Occult Blood Random Vancomycin Blood Type Antibody Screen Crossmatch Active Medications Generic Name Dose Route Start Last Admin Trade Name Freq PRN Reason Stop Dose Admin Acetaminophen 1,000 mg 01/22/20 21:59 01/23/20 17:44 Tylenol - PO 1,000 mg Q6H PRN Administration FEVER Chlorhexidine Gluconate 1 applic 01/22/20 22:00 01/23/20 21:09 Hibiclens For Decolonization - TP 1 applic HS TAMMY Administration Piperacillin Sod/Tazobactam 50 mls @ 100 mls/hr 01/23/20 02:00 01/24/20 10:21 Sod 2.25 gm/ Dextrose IVPB 100 mls/hr Q8H-IV TAMMY Administration Protocol Lactated Ringer's 1,000 ml in 1,000 mls @ 75 mls/hr 01/23/20 11:15 01/23/20 13:53 Lactated Ringers Solution IV 75 mls/hr ASDIR TAMMY Administration Norepinephrine Bitartrate 8,000 mcg in 500 mls @ 18.75 mls/hr 01/23/20 21:15 01/23/20 21:20 Levophed Bag IVPB 7.5 mcg/min TITR TAMMY 28.125 mls/hr Administration Protocol 5 MCG/MIN Metoprolol Succinate 25 mg 01/23/20 10:00 01/24/20 10:23 Toprol Xl - PO 25 mg DAILY TAMMY Administration Mupirocin 1 applic 01/22/20 22:00 01/24/20 10:24 Bactroban Ointment (For Decolonization) - NS 01/27/20 21:59 1 applic BID TAMMY Administration ASSESSMENT/PLAN: 74 y/o female PMH HTN, HFpEF, HLD, venous insufficiency, cirrhosis (etiology unclear), hepatic encephalopathy BIBEMS for shaking chills. In the ED she was found to be febrile and hypotensive with failed fluid resuscitation. She is admitted to the ICU for care of septic shock; blood cx alpha hemolytic strep # CARDIOLOGY Septic Shock Levophed 5 and titrating down to maintain MAP 65 LR @ 75 # PULMONARY/ID CT Chest with bronchiectasis, no h/o TB or other poss. sources from pt or primary Saturating 100% on RA Covid NEGATIVE Blood cx: alpha hemolytic strep Vancomycin Consult ID # [id number] Normocytic Anemia Hb drop today. F/u FOBT Transfuse below Hb 7 Thrombocytopenia - platelets 59 (<-- 54 in 02/2019) Hold Heparin 2/2 to bleeding risk # GI Hb drop today. F/u FOBT H/o cirrhosis poss. KING cirrhosis. Pt denies seeing GI out-pt. # Renal Cr 1.6 UO 250 cc # DVT Prophylaxis: SCDs # FEN LR @ 75 mL/hour according to CVP (8 today; f/u tomorrow) Monitor Low sodium diet LINES: L IJ DRIPS: Levophed 5 mcg/hour FULL CODE Dispo: ICU monitoring Visit type - Emergency Visit Emergency Visit: No - New Patient This patient is new to me today: No - Critical Care Critical Care patient: Yes Total Critical Care Time (in minutes): 36 Critical Care Statement: The care of this patient involved high complexity decision making to prevent further life threatening deterioration of the patient's condition and/or to evaluate & treat vital organ system(s) failure or risk of failure. ATTENDING PHYSICIAN STATEMENT I saw and evaluated the patient. I reviewed the resident's note and discussed the case with the resident. I agree with the resident's findings and plan as documented. SUBJECTIVE: OBJECTIVE: ASSESSMENT AND PLAN:
--- NOTE | 2020-01-24 11:30 | PN ---
Teaching Attending Note Name of Resident: Nitish Bowen ATTENDING PHYSICIAN STATEMENT I saw and evaluated the patient. I reviewed the resident's note and discussed the case with the resident. I agree with the resident's findings and plan as documented. SUBJECTIVE: Patient seen and examined in the ICU. Awake and alert. Reports some non-specific intermittent mid epigastric discomfort. No CP or SOB. NE @ 3 mcq for hemodynamic support. Intake & Output 01/21/20 01/22/20 01/23/20 01/24/20 23:59 23:59 23:59 23:59 Intake Total 3350 3198.0 1073 Output Total 330 250 400 Balance 3020 2948.0 673 Weight 236 lb 237 lb 9.6 oz 244 lb 3 oz Last Vital Signs Temp Pulse Resp BP Pulse Ox 97.7 F 78 22 H 125/65 100 01/24/20 10:00 01/24/20 10:00 01/24/20 10:00 01/24/20 10:00 01/23/20 20:00 Active Medications Acetaminophen (Tylenol -) 1,000 mg PO Q6H PRN PRN Reason: FEVER Last Admin: 01/23/20 17:44 Dose: 1,000 mg Documented by: Chlorhexidine Gluconate (Hibiclens For Decolonization -) 1 applic TP HS TAMMY Last Admin: 01/23/20 21:09 Dose: 1 applic Documented by: Piperacillin Sod/Tazobactam (Sod 2.25 gm/ Dextrose) 50 mls @ 100 mls/hr IVPB Q8H-IV TAMMY; Protocol Last Admin: 01/24/20 10:21 Dose: 100 mls/hr Documented by: Lactated Ringer's (Lactated Ringers Solution) 1,000 ml in 1,000 mls @ 75 mls/hr IV ASDIR TAMMY Last Admin: 01/23/20 13:53 Dose: 75 mls/hr Documented by: Norepinephrine Bitartrate (Levophed Bag) 8,000 mcg in 500 mls @ 18.75 mls/hr IVPB TITR TAMMY; Protocol Last Admin: 01/23/20 21:20 Dose: 7.5 mcg/min, 28.125 mls/hr Documented by: Metoprolol Succinate (Toprol Xl -) 25 mg PO DAILY TAMMY Last Admin: 06/04/20 10:23 Dose: 25 mg Documented by: Mupirocin (Bactroban Ointment (For Decolonization) -) 1 applic NS BID TAMMY Stop: 01/27/20 21:59 Last Admin: 01/24/20 10:24 Dose: 1 applic Documented by: GENERAL: Awake, alert, and fully oriented, in no acute distress. HEAD: Normal with no signs of trauma. EYES: Pupils equal, round and reactive to light, extraocular movements intact, sclera anicteric, conjunctiva clear. No lid lag. EARS, NOSE, THROAT: Ears normal, nares patent, oropharynx clear without exudates. Moist mucous membranes. NECK: Normal range of motion, supple without lymphadenopathy, JVD, or masses. LUNGS: Breath sounds equal, clear to auscultation bilaterally. No wheezes, and no crackles. No accessory muscle use. HEART: Regular rate and rhythm, normal S1 and S2, (+) ESM ABDOMEN: Soft, nontender, not distended, normoactive bowel sounds, no guarding, no rebound, no masses. No hepatomegaly or splenomegaly. MUSCULOSKELETAL: Normal range of motion at all joints. No bony deformities or tenderness. No CVA tenderness. UPPER EXTREMITIES: 2+ pulses, warm, well-perfused. No cyanosis. No clubbing. Cap refill <2 seconds. No peripheral edema. LOWER EXTREMITIES: (+) 4 edema, warm NEUROLOGICAL: Non-focal PSYCHIATRIC: Cooperative. Good eye contact. Appropriate mood and affect. SKIN: Warm, dry, L buttock: 3 cm Stage I ulcer @ 7 o'clock position Laboratory Results - last 24 hr 01/23/20 01/23/20 01/23/20 11:30 12:22 14:15 WBC 14.3 H RBC 2.41 L Hgb 6.8 L* Hct 21.2 L MCV 88.1 MCH 28.2 MCHC 32.0 RDW 17.0 H Plt Count 50 L D MPV 9.6 D Absolute Neuts (auto) 12.6 H Neutrophils % 87.8 H Lymphocytes % 5.9 L Monocytes % 5.7 Eosinophils % 0.5 D Basophils % 0.1 Nucleated RBC % 0 Sodium Potassium Chloride Carbon Dioxide Anion Gap BUN Creatinine Est GFR (CKD-EPI)AfAm Est GFR (CKD-EPI)NonAf POC Glucometer Random Glucose Calcium Phosphorus Magnesium Total Bilirubin AST ALT Alkaline Phosphatase Total Protein Albumin Stool Occult Blood Negative Random Vancomycin Blood Type O POSITIVE Antibody Screen Negative Crossmatch See Detail 01/23/20 01/23/20 01/24/20 21:17 23:55 05:30 WBC 16.6 H RBC 2.93 L Hgb 8.3 L Hct 25.6 L D MCV 87.6 MCH 28.5 MCHC 32.6 RDW 16.5 H Plt Count 66 L D MPV 9.8 Absolute Neuts (auto) Neutrophils % Lymphocytes % Monocytes % Eosinophils % Basophils % Nucleated RBC % Sodium Potassium Chloride Carbon Dioxide Anion Gap BUN Creatinine Est GFR (CKD-EPI)AfAm Est GFR (CKD-EPI)NonAf POC Glucometer 134 Random Glucose Calcium Phosphorus Magnesium Total Bilirubin AST ALT Alkaline Phosphatase Total Protein Albumin Stool Occult Blood Random Vancomycin 4.5 L Blood Type Antibody Screen Crossmatch 01/24/20 01/24/20 05:30 05:30 WBC 14.9 H RBC 2.86 L Hgb 8.2 L Hct 24.8 L MCV 86.8 MCH 28.6 MCHC 33.0 RDW 16.4 H Plt Count 66 L MPV 9.9 Absolute Neuts (auto) Neutrophils % Lymphocytes % Monocytes % Eosinophils % Basophils % Nucleated RBC % Sodium 136 Potassium 3.6 Chloride 107 Carbon Dioxide 23 Anion Gap 7 L BUN 17.7 Creatinine 1.6 H Est GFR (CKD-EPI)AfAm 35.90 Est GFR (CKD-EPI)NonAf 30.98 POC Glucometer Random Glucose 99 Calcium 7.6 L Phosphorus 2.4 L Magnesium 1.9 Total Bilirubin 2.1 H AST 32 ALT 12 L Alkaline Phosphatase 92 Total Protein 6.1 L Albumin 1.5 L Stool Occult Blood Random Vancomycin Blood Type Antibody Screen Crossmatch ASSESSMENT/PLAN: Septic Shock due to Alpha Hemolytic Streptococcus R/O UTI R/O GI source Cirrhosis : Etiology to be determined CHF HTN HPL Venous Insufficiency Hepatic Encephalopathy Bronchiectasis Follow CVP to guide IVF resuscitation ABX per ID Local wound care Pressors to maintain MAP > 65 Need to get further medical information from PMD and GI Follow Quantiferon VTE prophylaxis Requires ICU monitoring for pressors Dr Bauman Critical care time spent in reviewing chart, evaluating patient and formulating plan - 36 minutes.
[2020-01-24] MEDS ORDERED: VANCOMYCIN HCL 1,250 MG in DEXTROSE 5%-WATER - 250 ML IVPB SCH (12:30)
[2020-01-24] MEDS ORDERED: PT OWN MED DRAWER 7, Y5N ONE ×2 (13:44→21:03)
[2020-01-24] MEDS: LACTULOSE 20 GM/30 ML UDC (FOR ORAL USE ONLY) PO SCH ×2 (13:53→21:07)
--- NOTE | 2020-01-24 13:58 | PN ---
Progress Note (short form) - Note Progress Note: reports some RLQ discomfort today alert Vital Signs Period Temp Pulse Resp BP Sys/Patel Pulse Ox Last 24 Hr 72 F-98.4 F 59-78 14-22 92-142/56-81 100-100 cor-rrr lungs decreased bs at bases abd soft, RLA and suprapubic discomfort to palpation ext +edema CBC, BMP 01/24/20 05:30 01/24/20 05:30 Microbiology 01/22/20 10:45 Blood - Peripheral Venous Blood Culture - Preliminary Alpha Hemolytic Streptococcus 01/22/20 10:45 Blood - Peripheral Venous Blood Culture - Preliminary Alpha Hemolytic Streptococcus 01/22/20 10:45 Urine - Urine [place] Urine Culture - Final NO GROWTH OBTAINED a/p sepsis bacteremia liver cirrhosis ckd ascites consider paracentesis- ?source of bacteremia continue vanco/zosyn renal function improved
[2020-01-24] MEDS: RIFAXIMIN 550 MG TABLET (UD) PO SCH ×2 (15:22→21:07)
[2020-01-24] MEDS ORDERED: KCL 10 MEQ IVPB 10 MEQ/100 ML INFUS.BAG IVPB SCH (15:30)
[2020-01-24] MEDS ORDERED: PIPERACILLIN/TAZOBACTAM 3.375 GM VIAL IVPB ONE ×2 (16:56→21:03)
[2020-01-24] MEDS: PIPERACILLIN/TAZOB 3.375 GM 3.375 GM in DEXTROSE 5%-WATER - 50 ML IVPB SCH (17:04)
[2020-01-24] MEDS: ACETAMINOPHEN 500 MG TABLET (FP) PO PRN (21:07)
[2020-01-24] MEDS: LACTATED RINGERS SOLUTION 1,000 ML/1,000 ML INFUS.BAG IV SCH (21:08)
[2020-01-24] MEDS: CHLORHEXIDINE GLUCONATE 4% CLEANSER FOR DECOLONIZATION TP SCH (23:44)
[2020-01-24] MEDS: NOREPINEPHRINE BITARTRATE 8,000 MCG/500 ML BAG IVPB SCH (23:45)
[2020-01-25] MEDS: PIPERACILLIN/TAZOB 3.375 GM 3.375 GM in DEXTROSE 5%-WATER - 50 ML IVPB SCH ×2 (02:34→09:18)
[2020-01-25] MEDS: LACTULOSE 20 GM/30 ML UDC (FOR ORAL USE ONLY) PO SCH ×4 (05:44→22:21)
[2020-01-25 06:47] LABS: HEMATOCRIT 23.3 % (32.4-45.2); HEMOGLOBIN 7.7 GM/dL (10.7-15.3); MCH 28.8 pg (25.7-33.7); MEAN CELL VOLUME 87.4 fl (80-96); MEAN PLT VOLUME 9.9 fl (7.5-11.1); PLATELET COUNT 52 K/MM3 (134-434); RBC 2.67 M/mm3 (3.60-5.2); RDW 16.5 % (11.6-15.6); WHITE BLOOD COUNT 7.4 K/mm3 (4.0-10.0)
[2020-01-25 06:56] LABS: ALBUMIN 1.3 g/dl (3.4-5.0); BILIRUBIN,TOTAL 1.3 mg/dL (0.2-1); BLOOD UREA NITROGEN 17.2 mg/dL (7-18); CALCIUM 7.3 mg/dL (8.5-10.1); CREATININE 1.5 mg/dL (0.55-1.3); MAGNESIUM 2.2 mg/dL (1.8-2.4); PHOSPHOROUS 2.5 mg/dL (2.5-4.9); POTASSIUM 4.2 mmol/L (3.5-5.1); TOT PROT 5.7 g/dl (6.4-8.2)
[2020-01-25 06:57] LABS: INR 1.49 (0.83-1.09); PROTHROMBIN TIME (PATIENT) 17.7 SEC (9.7-13.0)
[2020-01-25] MEDS ORDERED: LACTATED RINGERS SOLUTION 1,000 ML/1,000 ML INFUS.BAG IV SCH ×2 (07:21→21:56)
--- NOTE | 2020-01-25 07:37 | PN ---
Physical Exam: SUBJECTIVE: Patient seen and examined Ms. Rodgers with hematuria in [place] this morning. No complaints, she states that she feels like her normal self. OBJECTIVE: Vital Signs Period Temp Pulse Resp BP Sys/Patel Pulse Ox Last 24 Hr 97.6 F-98.3 F 57-78 14-22 92-125/45-81 100-100 GENERAL: The patient is awake, alert, and fully oriented, in no acute distress. HEAD: Normal with no signs of trauma. EYES: PERRL, extraocular movements intact, sclera anicteric, conjunctiva clear. No ptosis. ENT: Ears normal, nares patent, oropharynx clear without exudates, moist mucous membranes. NECK: Trachea midline, full range of motion, supple. LUNGS: Breath sounds equal, clear to auscultation bilaterally, no wheezes, no crackles, no accessory muscle use. HEART: bradycardic in the 50s, S1, S2 without murmur, rub or gallop. ABDOMEN: Soft, mild suprapubic tenderness, nondistended, normoactive bowel sounds, no guarding, no rebound, no hepatosplenomegaly, no masses. EXTREMITIES: 2+ pulses, warm, well-perfused, no edema. NEUROLOGICAL: Cranial nerves II through XII grossly intact. Normal speech, gait not observed. PSYCH: Normal mood, normal affect. SKIN: Warm, dry, normal turgor, no rashes or lesions noted Laboratory Results - last 24 hr 01/25/20 01/25/20 01/25/20 05:30 05:30 06:00 WBC 7.4 RBC 2.67 L Hgb 7.7 L Hct 23.3 L MCV 87.4 MCH 28.8 MCHC 33.0 RDW 16.5 H Plt Count 52 L D MPV 9.9 PT with INR 17.70 H INR 1.49 H Sodium 138 Potassium 4.2 Chloride 108 H Carbon Dioxide 25 Anion Gap 5 L BUN 17.2 Creatinine 1.5 H Est GFR (CKD-EPI)AfAm 38.82 Est GFR (CKD-EPI)NonAf 33.49 Random Glucose 79 Calcium 7.3 L Phosphorus 2.5 Magnesium 2.2 Total Bilirubin 1.3 H AST 36 ALT 14 Alkaline Phosphatase 102 Total Protein 5.7 L Albumin 1.3 L Active Medications Generic Name Dose Route Start Last Admin Trade Name Freq PRN Reason Stop Dose Admin Acetaminophen 1,000 mg 01/22/20 21:59 01/24/20 21:07 Tylenol - PO 1,000 mg Q6H PRN Administration FEVER Chlorhexidine Gluconate 1 applic 01/22/20 22:00 01/24/20 23:44 Hibiclens For Decolonization - TP 1 applic HS TAMMY Administration Norepinephrine Bitartrate 8,000 mcg in 500 mls @ 18.75 mls/hr 01/23/20 21:15 01/24/20 23:45 Levophed Bag IVPB Not Given TITR TAMMY Protocol 5 MCG/MIN Vancomycin HCl 1,250 mg/ 250 mls @ 250 mls/2 hr 01/25/20 14:00 Dextrose IVPB Q24H TAMMY Protocol Piperacillin Sod/Tazobactam 50 mls @ 100 mls/hr 01/24/20 18:00 01/25/20 02:34 Sod 3.375 gm/ Dextrose IVPB 100 mls/hr Q8H-IV TAMMY Administration Protocol Lactated Ringer's 1,000 ml in 1,000 mls @ 150 mls/hr 01/25/20 07:21 Lactated Ringers Solution IV ASDIR TAMMY Lactulose 10 gm 01/24/20 14:00 01/25/20 05:44 Cephulac (Oral Use) PO 10 gm TID TAMMY Administration Metoprolol Succinate 25 mg 01/23/20 10:00 01/24/20 10:23 Toprol Xl - PO 25 mg DAILY TAMMY Administration Mupirocin 1 applic 01/22/20 22:00 01/24/20 21:07 Bactroban Ointment (For Decolonization) - NS 01/27/20 21:59 1 applic BID TAMMY Administration Rifaximin 550 mg 01/24/20 13:00 01/24/20 21:07 Xifaxan - PO 550 mg BID TAMMY Administration ASSESSMENT/PLAN: 74 yo F PMH HTN, HFpEF (EF 62%), HLD, venous insufficiency, cirrhosis w/ unclear etiology, hepatic encephalopathy BIBEMS for shaking chills. In the ER, found to be febrile and hypotensive with failed fluid resuscitation. She is admitted to the ICU for care of septic shock; blood cx growing alpha hemolytic strep. Neuro: - awake, alert, oriented - not on sedation Cardio: - hx HTN, HFpEF with EF 62% - septic shock - Levophed 5 - LR changed from 75 to 150 on 01/25/2020 Pulm: - CT Chest: bronchiectasis - Saturating 100% on RA ID: - Blood cx: alpha hemolytic strep - vancomycin 1250mg q24h - piptazo 3.375g q8h - Covid NEGATIVE - no hx TB or other sources from pt or primary - Nystatin ordered 01/25/2020 - per David, consider paracentesis as source - David following, appreciate recs Heme: - normocytic Anemia - Hgb 8.2 -> 7.7 - repeat CBC @1200: 7.9 - transfuse below Hb 7 - thrombocytopenia - platelets 52 - transfusing 2 units of platelets prior to paracentesis 01/25/2020 - hold heparin 09/23 to bleeding risk GI: - hx cirrhosis, possible KING cirrhosis but unclear etiology - on rifaximin BID - paracentesis planned 01/25/2020 Renal: - Cr 1.5 - dc [place] (placed 01/22/20) DVT Prophylaxis: - SCDs F: LR @ 150 ccs/hour E: monitor, replete PRN N: low sodium diet LINES: L IJ placed 01/22/2020 DRIPS: Levophed 5 mcg/hour FULL CODE Dispo: transfer to Med/Surg Visit type - Emergency Visit Emergency Visit: Yes ED Registration Date: 01/22/20 Care time: The patient presented to the Emergency Department on the above date and was hospitalized for further evaluation of their emergent condition. - New Patient This patient is new to me today: Yes Date on this admission: 01/25/20 - Critical Care Critical Care patient: Yes Total Critical Care Time (in minutes): 35 Critical Care Statement: The care of this patient involved high complexity decision making to prevent further life threatening deterioration of the patient's condition and/or to evaluate & treat vital organ system(s) failure or risk of failure. ATTENDING PHYSICIAN STATEMENT I saw and evaluated the patient. I reviewed the resident's note and discussed the case with the resident. I agree with the resident's findings and plan as documented. SUBJECTIVE: OBJECTIVE: ASSESSMENT AND PLAN:
[2020-01-25] MEDS ORDERED: PIPERACILLIN/TAZOBACTAM 3.375 GM VIAL IVPB ONE (08:46)
[2020-01-25] MEDS ORDERED: DEXTROSE 5%-WATER - 50 ML IVPB ONE (08:46)
[2020-01-25] MEDS: metoPROLOL SUCCINATE 25 MG TAB.SR.24H (FP) PO SCH (09:18)
[2020-01-25] MEDS: MUPIROCIN 2% TOPICAL OINTMENT FOR DECOLONIZATION NS SCH ×2 (09:19→21:42)
[2020-01-25] MEDS: RIFAXIMIN 550 MG TABLET (UD) PO SCH ×3 (09:30→22:21)
--- NOTE | 2020-01-25 11:40 | PN ---
Teaching Attending Note Name of Resident: Lance Egan ATTENDING PHYSICIAN STATEMENT I saw and evaluated the patient. I reviewed the resident's note and discussed the case with the resident. I agree with the resident's findings and plan as documented. SUBJECTIVE: Patient seen and examined in the ICU. Awake and alert. Improved non-specific intermittent mid epigastric discomfort from yesterday. No CP or SOB. Currently off pressors but hemodynamics were marginal overnight requiring IVF boluses. Intake & Output 01/22/20 01/23/20 01/24/20 01/25/20 23:59 23:59 23:59 23:59 Intake Total 3350 3198.0 3423 885 Output Total 330 250 850 400 Balance 3020 2948.0 2573 485 Weight 236 lb 237 lb 9.6 oz 244 lb 245 lb Last Vital Signs Temp Pulse Resp BP Pulse Ox 98.2 F 60 15 96/48 L 100 01/25/20 08:00 01/25/20 10:00 01/25/20 10:00 01/25/20 10:00 01/25/20 09:00 Active Medications Acetaminophen (Tylenol -) 1,000 mg PO Q6H PRN PRN Reason: FEVER Last Admin: 01/24/20 21:07 Dose: 1,000 mg Documented by: Chlorhexidine Gluconate (Hibiclens For Decolonization -) 1 applic TP HS TAMMY Last Admin: 01/24/20 23:44 Dose: 1 applic Documented by: Norepinephrine Bitartrate (Levophed Bag) 8,000 mcg in 500 mls @ 18.75 mls/hr IVPB TITR [facility]; Protocol Last Admin: 01/24/20 23:45 Dose: Not Given Documented by: Vancomycin HCl 1,250 mg/ (Dextrose) 250 mls @ 250 mls/2 hr IVPB Q24H [facility]; Protocol Piperacillin Sod/Tazobactam (Sod 3.375 gm/ Dextrose) 50 mls @ 100 mls/hr IVPB Q8H-IV [facility]; Protocol Last Admin: 01/25/20 09:18 Dose: 100 mls/hr Documented by: Lactated Ringer's (Lactated Ringers Solution) 1,000 ml in 1,000 mls @ 150 mls/hr IV ASDIR T[facility] Last Admin: 01/25/20 08:51 Dose: 150 mls/hr Documented by: Lactulose (Cephulac (Oral Use)) 10 gm PO TID [facility] Last Admin: 01/25/20 05:44 Dose: 10 gm Documented by: Metoprolol Succinate (Toprol Xl -) 25 mg PO DAILY [facility] Last Admin: 01/25/20 09:18 Dose: 25 mg Documented by: Mupirocin (Bactroban Ointment (For Decolonization) -) 1 applic NS BID [facility] Stop: 01/27/20 21:59 Last Admin: 01/25/20 09:19 Dose: 1 applic Documented by: Nystatin (Mycostatin Cream -) 1 applic TP Q6HPO [facility] Rifaximin (Xifaxan -) 550 mg PO BID [facility] Last Admin: 01/25/20 09:30 Dose: Not Given Documented by: GENERAL: Awake, alert, and fully oriented, in no acute distress. HEAD: Normal with no signs of trauma. EYES: Pupils equal, round and reactive to light, extraocular movements intact, sclera anicteric, conjunctiva clear. No lid lag. EARS, NOSE, THROAT: Ears normal, nares patent, oropharynx clear without exudates. Moist mucous membranes. NECK: Normal range of motion, supple without lymphadenopathy, JVD, or masses. LUNGS: Breath sounds equal, clear to auscultation bilaterally. No wheezes, and no crackles. No accessory muscle use. HEART: Regular rate and rhythm, normal S1 and S2, (+) ESM ABDOMEN: Soft, nontender, not distended, normoactive bowel sounds, no guarding, no rebound, no masses. No hepatomegaly or splenomegaly. MUSCULOSKELETAL: Normal range of motion at all joints. No bony deformities or tenderness. No CVA tenderness. UPPER EXTREMITIES: 2+ pulses, warm, well-perfused. No cyanosis. No clubbing. Cap refill <2 seconds. No peripheral edema. LOWER EXTREMITIES: (+) 4 edema, warm NEUROLOGICAL: Non-focal PSYCHIATRIC: Cooperative. Good eye contact. Appropriate mood and affect. SKIN: Warm, dry, L buttock: 3 cm Stage I ulcer @ 7 o'clock position Laboratory Results - last 24 hr 01/25/20 01/25/20 01/25/20 05:30 05:30 06:00 WBC 7.4 RBC 2.67 L Hgb 7.7 L Hct 23.3 L MCV 87.4 MCH 28.8 MCHC 33.0 RDW 16.5 H Plt Count 52 L D MPV 9.9 PT with INR 17.70 H INR 1.49 H Sodium 138 Potassium 4.2 Chloride 108 H Carbon Dioxide 25 Anion Gap 5 L BUN 17.2 Creatinine 1.5 H Est GFR (CKD-EPI)AfAm 38.82 Est GFR (CKD-EPI)NonAf 33.49 Random Glucose 79 Calcium 7.3 L Phosphorus 2.5 Magnesium 2.2 Total Bilirubin 1.3 H AST 36 ALT 14 Alkaline Phosphatase 102 Total Protein 5.7 L Albumin 1.3 L ASSESSMENT/PLAN: Septic Shock due to Alpha Hemolytic Streptococcus R/O UTI R/O GI source Cirrhosis : Etiology to be determined CHF HTN HPL Venous Insufficiency Hepatic Encephalopathy Bronchiectasis Continue IVF resuscitation ABX per ID Local wound care Pressors for MAP < 65 Follow Quantiferon VTE prophylaxis Floor once hemodynamics have stabilized Diagnostic paracentesis being arranged Dr Bauman
[2020-01-25 12:48] LABS: BASO % 0.7 % (0-2.0); EOS % 4.2 % (0-4.5); HEMATOCRIT 24.6 % (32.4-45.2); HEMOGLOBIN 7.9 GM/dL (10.7-15.3); LYMPH % 11.4 % (8-40); MCH 28.6 pg (25.7-33.7); MCHC 32.2 g/dl (32.0-36.0); MEAN CELL VOLUME 88.8 fl (80-96); MEAN PLT VOLUME 9.8 fl (7.5-11.1); NEUT % 74.7 % (42.8-82.8); PLATELET COUNT 56 K/MM3 (134-434); RBC 2.77 M/mm3 (3.60-5.2); RDW 16.5 % (11.6-15.6)
--- NOTE | 2020-01-25 13:19 | PN ---
Progress Note (short form) - Note Progress Note: +bm, abdominal pain improved alert Vital Signs Period Temp Pulse Resp BP Sys/Patel Pulse Ox Last 24 Hr 98.1 F-98.3 F 57-75 15-19 92-126/45-70 100-100 cor-rrr lungs decreased bs at bases abd soft,nt ext +Edema CBC, BMP 01/25/20 12:13 01/25/20 06:00 Microbiology 01/22/20 10:45 Blood - Peripheral Venous Blood Culture - Final Streptococcus Mitis 01/22/20 10:45 Blood - Peripheral Venous Blood Culture - Final Streptococcus Mitis 01/24/20 10:45 Blood - Peripheral Venous Blood Culture - Preliminary NO GROWTH OBTAINED AFTER 24 HOURS, INCUBATION TO CONTINUE FOR 4 DAYS. 01/24/20 05:30 Blood - Peripheral Venous Blood Culture - Preliminary NO GROWTH OBTAINED AFTER 24 HOURS, INCUBATION TO C ONTINUE FOR 4 DAYS. 01/22/20 10:45 Urine - Urine Flores Urine Culture - Final NO GROWTH OBTAINED a/p sepsis bacteremia-strep sanguis-switch to rocephin liver cirrhosis ckd ascites paracentesis- ?source of bacteremia repeat blood cultures negative
[2020-01-25] MEDS ORDERED: DEXTROSE 5%-WATER 100 ML IVPB ONE (13:45)
[2020-01-25] MEDS: CEFTRIAXONE 2 GM in DEXTROSE 5%-WATER 100 ML IVPB SCH (13:49)
[2020-01-25] MEDS ORDERED: VANCOMYCIN HCL 1,250 MG in DEXTROSE 5%-WATER - 250 ML IVPB SCH (14:00)
[2020-01-25] MEDS: NYSTATIN 100,000 UNIT/GM TOPICAL CREAM 15 GM TUBE TP SCH (17:14)
[2020-01-25 18:38] LABS: BF WBC & OTHER NUCLEATED CELLS 337 /mm3
[2020-01-25 18:50] LABS: BODY FLUID MACROPHAGES 4 %; BODY FLUID MESOTHELIAL 10 %; BODY FLUID MONOCYTE 19 %
[2020-01-25] MEDS: CHLORHEXIDINE GLUCONATE 4% CLEANSER FOR DECOLONIZATION TP SCH (21:42)
[2020-01-25] MEDS ORDERED: ACETAMINOPHEN 500 MG TABLET (FP) PO PRN (21:56)
[2020-01-25] MEDS ORDERED: DEXTROSE 50%-WATER - 25 GM/50 ML VIAL IVPUSH ONE (21:56)
[2020-01-25] MEDS ORDERED: MUPIROCIN 2% TOPICAL OINTMENT FOR DECOLONIZATION NS SCH (22:00)
[2020-01-25] MEDS ORDERED: CHLORHEXIDINE GLUCONATE 4% CLEANSER FOR DECOLONIZATION TP SCH (22:00)
[2020-01-26] MEDS: NYSTATIN 100,000 UNIT/GM TOPICAL CREAM 15 GM TUBE TP SCH ×5 (05:52→18:55)
[2020-01-26] MEDS: LACTULOSE 20 GM/30 ML UDC (FOR ORAL USE ONLY) PO SCH ×3 (05:53→21:37)
[2020-01-26 08:16] LABS: BASO % 0.5 % (0-2.0); EOS % 4.2 % (0-4.5); HEMOGLOBIN 7.8 GM/dL (10.7-15.3); LYMPH % 15.3 % (8-40); MCH 28.5 pg (25.7-33.7); MCHC 32.4 g/dl (32.0-36.0); MEAN CELL VOLUME 87.9 fl (80-96); MEAN PLT VOLUME 10.4 fl (7.5-11.1); MONO % 12.9 % (3.8-10.2); NEUT % 67.1 % (42.8-82.8); PLATELET COUNT 57 K/MM3 (134-434); RBC 2.73 M/mm3 (3.60-5.2); RDW 16.5 % (11.6-15.6); WHITE BLOOD COUNT 6.2 K/mm3 (4.0-10.0)
[2020-01-26 08:48] LABS: ALBUMIN 1.4 g/dl (3.4-5.0); BILIRUBIN,TOTAL 1.3 mg/dL (0.2-1); BLOOD UREA NITROGEN 14.5 mg/dL (7-18); CALCIUM 7.8 mg/dL (8.5-10.1); CREATININE 1.3 mg/dL (0.55-1.3); MAGNESIUM 2.3 mg/dL (1.8-2.4); PHOSPHOROUS 2.3 mg/dL (2.5-4.9); POTASSIUM 4.3 mmol/L (3.5-5.1)
[2020-01-26 08:51] LABS: TOT PROT 5.8 g/dl (6.4-8.2)
[2020-01-26] MEDS ORDERED: metoPROLOL SUCCINATE 25 MG TAB.SR.24H (FP) PO SCH ×2 (10:00→13:42)
--- NOTE | 2020-01-26 10:00 | PN ---
Progress Note, Physician Chief Complaint: Septic Shock due to Alpha Hemolytic Streptococcus Cirrhosis : Etiology to be determined CHF HTN Venous Insufficiency Hepatic Encephalopathy Bacteremia History of Present Illness: NAD c/o pain on paracentesis site-clean with dressing dry and intact - Current Medication List Current Medications: Active Medications Acetaminophen (Tylenol -) 1,000 mg PO Q6H PRN PRN Reason: FEVER Ceftriaxone Sodium 2 gm/ (Dextrose) 100 mls @ 100 mls/hr IVPB DAILY [facility]; Protocol Last Admin: 01/25/20 13:49 Dose: 100 mls/hr Documented by: Lactated Ringer's (Lactated Ringers Solution) 1,000 ml in 1,000 mls @ 150 mls/hr IV ASDIR [facility] Last Admin: 01/26/20 00:00 Dose: 150 mls/hr Documented by: Lactulose (Cephulac (Oral Use)) 10 gm PO TID [facility] Last Admin: 01/26/20 05:53 Dose: Not Given Documented by: Metoprolol Succinate (Toprol Xl -) 25 mg PO DAILY [facility] Nystatin (Mycostatin Cream -) 1 applic TP Q6HPO [facility] Last Admin: 01/26/20 05:52 Dose: Not Given Documented by: Rifaximin (Xifaxan -) 550 mg PO BID [facility] Last Admin: 01/25/20 22:21 Dose: Not Given Documented by: - Objective Vital Signs: Vital Signs Temperature 98.3 F 01/26/20 05:00 Pulse Rate 76 01/26/20 05:00 Respiratory Rate 20 01/26/20 05:00 Blood Pressure 109/38 L 01/26/20 05:00 O2 Sat by Pulse Oximetry (%) 100 01/25/20 21:00 Constitutional: Yes: Well Nourished, No Distress, Calm, Obese Cardiovascular: Yes: Regular Rate and Rhythm, Murmur (Grade III diastolic murmer) Respiratory: Yes: Regular, Diminished Gastrointestinal: Yes: Normal Bowel Sounds, Abdomen, Obese, Ascites Genitourinary: Yes: Incontinence Musculoskeletal: Yes: Muscle Weakness Edema: Yes Edema: LLE: 3+, RLE: 3+ Peripheral Pulses WNL: Yes Integumentary: Yes: Incision (abd RLQ) Wound/Incision: Yes: Dressing Dry and Intact Neurological: Yes: Alert, Oriented Psychiatric: Yes: Alert, Oriented Labs: CBC, BMP 01/26/20 06:20 01/26/20 06:20 INR, PTT INR 1.49 (0.83-1.09) H 01/25/20 05:30 Problem List - Problems (1) Bacteremia Assessment/Plan: -Cultures: Microbiology 01/24/20 05:30 Blood - Peripheral Venous Blood Culture - Preliminary NO GROWTH OBTAINED AFTER 48 HOURS, INCUBATION TO CONTINUE FOR 3 DAYS. 01/22/20 10:45 Blood - Peripheral Venous Blood Culture - Final Streptococcus Mitis 01/22/20 10:45 Blood - Peripheral Venous Blood Culture - Final Streptococcus Mitis 01/24/20 10:45 Blood - Peripheral Venous Blood Culture - Preliminary NO GROWTH OBTAINED AFTER 24 HOURS, INCUBATION TO CONTINUE FOR 4 DAYS. 01/22/20 10:45 Urine - Urine Flores Urine Culture - Final NO GROWTH OBTAINED -ID on board -IV Rocephin -Repeat BC so far negative -Paracentesis micro pending Problems reviewed: Yes Code(s): R78.81 - BACTEREMIA (2) Abdominal pain Assessment/Plan: -CTAP: showed large ascitis -S/P paracentesis -Abd pain improved Problems reviewed: Yes Code(s): R10.9 - UNSPECIFIED ABDOMINAL PAIN (3) Altered mental status Problems reviewed: Yes Code(s): R41.82 - ALTERED MENTAL STATUS, UNSPECIFIED Qualifiers: Altered mental status type: disorientation Qualified Code(s): R41.0 - Disorientation, unspecified (4) Anemia Assessment/Plan: -2/2 to chronic disease -B12, Thyroid, iron + folate normal in recent workup -Stool OB negative -GI consult -Monitor trend -Transfuse only if Hg<7.0 to avoid fluid overload Problems reviewed: Yes Code(s): D64.9 - ANEMIA, UNSPECIFIED (5) Ascites Assessment/Plan: -S/P paracentesis -Rifaxamine + Lactulose -GI consult Problems reviewed: Yes Code(s): R18.8 - OTHER ASCITES Qualifiers: Ascites type: other type Qualified Code(s): R18.8 - Other ascites (6) CHF (congestive heart failure) Problems reviewed: Yes Code(s): I50.9 - HEART FAILURE, UNSPECIFIED (7) Cryptogenic cirrhosis Problems reviewed: Yes Code(s): K74.69 - OTHER CIRRHOSIS OF LIVER (8) Hepatic encephalopathy Problems reviewed: Yes Code(s): K72.90 - HEPATIC FAILURE, UNSPECIFIED WITHOUT COMA (9) Toxic metabolic encephalopathy Problems reviewed: Yes Code(s): G92 - TOXIC ENCEPHALOPATHY (10) Thrombocytopenia Assessment/Plan: 2/2 to chronic liver disease -Monitor Plts Problems reviewed: Yes Code(s): D69.6 - THROMBOCYTOPENIA, UNSPECIFIED (11) Hypotension Assessment/Plan: -D/C IVF -Decrease toprol to 12.5 mg po daily -monitor vitals Problems reviewed: Yes Code(s): I95.9 - HYPOTENSION, UNSPECIFIED Assessment/Plan See problem list
[2020-01-26] MEDS ORDERED: DEXTROSE 5%-WATER 100 ML IVPB ONE (10:05)
[2020-01-26] MEDS: RIFAXIMIN 550 MG TABLET (UD) PO SCH ×2 (10:07→21:36)
[2020-01-26] MEDS: CEFTRIAXONE 2 GM in DEXTROSE 5%-WATER 100 ML IVPB SCH (10:07)
--- NOTE | 2020-01-26 11:26 | PN ---
Progress Note (short form) - Note Progress Note: 74 y.o. F with known cirrhosis,h/o encephalopathy, varices, ascites, admitted with fever and chills. Had paracentesis yesterday with an ascitic fluid WBC of 337. 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 She is obese with a nontender abdomen with a fluid wave and 3+ LE edema bilaterally. Labs: CBC,CMP WBC 6.2 K/mm3 (4.0-10.0) 01/26/20 06:20 RBC 2.73 M/mm3 (3.60-5.2) L 01/26/20 06:20 Hgb 7.8 GM/dL (10.7-15.3) L 01/26/20 06:20 Hct 24.0 % (32.4-45.2) L 01/26/20 06:20 MCV 87.9 fl (80-96) 01/26/20 06:20 MCH 28.5 pg (25.7-33.7) 01/26/20 06:20 MCHC 32.4 g/dl (32.0-36.0) 01/26/20 06:20 RDW 16.5 % (11.6-15.6) H 01/26/20 06:20 Plt Count 57 K/MM3 (134-434) L 01/26/20 06:20 MPV 10.4 fl (7.5-11.1) 01/26/20 06:20 Absolute Neuts (auto) 4.1 K/mm3 (1.5-8.0) 01/26/20 06:20 Neutrophils % 67.1 % (42.8-82.8) 01/26/20 06:20 Neutrophils % (Manual) 84.7 % (42.8-82.8) H 01/23/20 05:53 Band Neutrophils % 7.1 % 01/23/20 05:53 Lymphocytes % 15.3 % (8-40) D 01/26/20 06:20 Lymphocytes % (Manual) 4.1 % (8-40) L D 01/23/20 05:53 Monocytes % 12.9 % (3.8-10.2) H 01/26/20 06:20 Monocytes % (Manual) 3 % (3.8-10.2) L 01/23/20 05:53 Eosinophils % 4.2 % (0-4.5) 01/26/20 06:20 Eosinophils % (Manual) 1.0 % (0-4.5) D 01/23/20 05:53 Basophils % 0.5 % (0-2.0) 01/26/20 06:20 Basophils % (Manual) 0.0 % (0-2.0) 01/23/20 05:53 Myelocytes % (Man) 0 % (0-2) 01/23/20 05:53 Promyelocytes % (Man) 0 % (0-2) 01/23/20 05:53 Blast Cells % (Manual) 0 % (0-0) 01/23/20 05:53 Nucleated RBC % 0 % (0-0) 01/26/20 06:20 Metamyelocytes 0 % (0-2) 01/23/20 05:53 Hypochromia 1+ 01/23/20 05:53 Platelet Estimate Decreased 01/23/20 05:53 Polychromasia 1+ 01/23/20 05:53 Poikilocytosis 0 01/23/20 05:53 Anisocytosis 1+ 01/23/20 05:53 Macrocytosis 0 01/23/20 05:53 Rouleaux 2+ 01/23/20 05:53 Sodium 138 mmol/L (136-145) 01/26/20 06:20 Potassium 4.3 mmol/L (3.5-5.1) 01/26/20 06:20 Chloride 108 mmol/L (98-107) H 01/26/20 06:20 Carbon Dioxide 25 mmol/L (21-32) 01/26/20 06:20 Anion Gap 4 MMOL/L (8-16) L 01/26/20 06:20 BUN 14.5 mg/dL (7-18) 01/26/20 06:20 Creatinine 1.3 mg/dL (0.55-1.3) 01/26/20 06:20 Est GFR (CKD-EPI)AfAm 46.15 01/26/20 06:20 Est GFR (CKD-EPI)NonAf 39.82 01/26/20 06:20 POC Glucometer 69 UNITS (80-120) 01/26/20 05:49 Random Glucose 66 mg/dL (74-106) L 01/26/20 06:20 Lactic Acid 2.4 mmol/L (0.4-2.0) H* 01/23/20 09:30 Calcium 7.8 mg/dL (8.5-10.1) L 01/26/20 06:20 Phosphorus 2.3 mg/dL (2.5-4.9) L 01/26/20 06:20 Magnesium 2.3 mg/dL (1.8-2.4) 01/26/20 06:20 Total Bilirubin 1.3 mg/dL (0.2-1) H 01/26/20 06:20 AST 39 U/L (15-37) H 01/26/20 06:20 ALT 14 U/L (13-61) 01/26/20 06:20 Alkaline Phosphatase 96 U/L (45-117) 01/26/20 06:20 Ammonia 25.30 umol/L (11-32) 01/23/20 05:53 Creatine Kinase 78 U/L (26-192) 01/22/20 10:45 Troponin I < 0.02 ng/ml (0.00-0.05) 01/22/20 10:45 B-Natriuretic Peptide 459.9 pg/ml (5-450) H 01/22/20 10:45 Total Protein 5.8 g/dl (6.4-8.2) L 01/26/20 06:20 Albumin 1.4 g/dl (3.4-5.0) L 01/26/20 06:20 Lipase 106 U/L (73-393) 01/22/20 10:45 TSH 2.70 uIU/ml (0.358-3.74) 01/22/20 10:45 Note albumin of 1.4, normal renal function. CT abdomen -> marked ascites Impression: Cirrhosis with worsening ascites. Would aim to limit IV fluids. I realize she was given IV fluids for hypotension, but if she continues to receive salt solutions she will accumulate more ascites and more peripheral edema. Indeed, if the vital signs are to be believed, she has gained 43 lbs since admission. I believe the admission weight of 215 lbs is likely inaccurate but ingoring that one she does appear to be gaining weight.
--- NOTE | 2020-01-26 12:24 | PN ---
Progress Note (short form) - Note Progress Note: PULMONARY Feels about the same. s/p diagnostic paracentesis yesterday which was not c/w SBP. Vital Signs Period Temp Pulse Resp BP Sys/Patel Pulse Ox Last 24 Hr 97.9 F-98.4 F 64-76 15-20 109-133/38-79 100 Gen: NAD in chair Heart: RRR Lung: decreased breath sounds at the bases Abd: distended, +ascites Ext: + edema CBC, BMP 01/26/20 06:20 01/26/20 06:20 Active Medications Acetaminophen (Tylenol -) 1,000 mg PO Q6H PRN PRN Reason: FEVER Ceftriaxone Sodium 2 gm/ (Dextrose) 100 mls @ 100 mls/hr IVPB DAILY [facility]; Protocol Last Admin: 01/26/20 10:07 Dose: 100 mls/hr Documented by: Lactated Ringer's (Lactated Ringers Solution) 1,000 ml in 1,000 mls @ 150 mls/hr IV ASDIR [facility] Last Admin: 01/26/20 00:00 Dose: 150 mls/hr Documented by: Lactulose (Cephulac (Oral Use)) 10 gm PO TID [facility] Last Admin: 01/26/20 05:53 Dose: Not Given Documented by: Metoprolol Succinate (Toprol Xl -) 25 mg PO DAILY [facility] Last Admin: 01/26/20 10:07 Dose: 25 mg Documented by: Nystatin (Mycostatin Cream -) 1 applic TP Q6HPO [facility] Last Admin: 01/26/20 11:42 Dose: 1 applic Documented by: Rifaximin (Xifaxan -) 550 mg PO BID [facility] Last Admin: 01/26/20 10:07 Dose: 550 mg Documented by: A/P Strep Bacteremia Septic Shock resolving Liver Cirrhosis Ascites LV Diastolic Dysfunction HTN Hyperlipidemia Anemia Thrombocytopenia - continue antibiotics - f/u pending ascites studies - O2 to keep SpO2 >90% - would d/c IVF - DVT prophylaxis
--- NOTE | 2020-01-26 14:15 | PN ---
Progress Note, Physician History of Present Illness: AWAKE, ALERT IN BED NO COMPLAINTS NO FEVER/ CHILLS PARACENTESIS PERFORMED C/S PENDING - Current Medication List Current Medications: Active Medications Acetaminophen (Tylenol -) 1,000 mg PO Q6H PRN PRN Reason: FEVER Ceftriaxone Sodium 2 gm/ (Dextrose) 100 mls @ 100 mls/hr IVPB DAILY [facility]; Protocol Last Admin: 01/26/20 10:07 Dose: 100 mls/hr Documented by: Lactulose (Cephulac (Oral Use)) 10 gm PO TID [facility] Last Admin: 01/26/20 05:53 Dose: Not Given Documented by: Metoprolol Succinate (Toprol Xl -) 12.5 mg PO DAILY [facility] Nystatin (Mycostatin Cream -) 1 applic TP Q6HPO [facility] Last Admin: 01/26/20 11:42 Dose: 1 applic Documented by: Rifaximin (Xifaxan -) 550 mg PO BID [facility] Last Admin: 01/26/20 10:07 Dose: 550 mg Documented by: - Objective Vital Signs: Vital Signs Temperature 97.6 F 01/26/20 13:41 Pulse Rate 78 01/26/20 13:41 Respiratory Rate 20 01/26/20 13:41 Blood Pressure 111/52 L 01/26/20 13:41 O2 Sat by Pulse Oximetry (%) 97 01/26/20 09:00 Constitutional: Yes: No Distress Cardiovascular: Yes: Regular Rate and Rhythm, S1, S2 Respiratory: Yes: CTA Bilaterally Gastrointestinal: Yes: Normal Bowel Sounds, Soft, Ascites. No: Tenderness Labs: CBC, BMP 01/26/20 06:20 01/26/20 06:20 INR, PTT INR 1.49 (0.83-1.09) H 01/25/20 05:30 Assessment/Plan S. MITIS BACTEREMIA ?SBP CHRONIC LIVER DISEASE CKD AWAIT C/S CONTINUE CEFTRIAXONE
[2020-01-27] MEDS: NYSTATIN 100,000 UNIT/GM TOPICAL CREAM 15 GM TUBE TP SCH ×5 (00:06→17:09)
[2020-01-27] MEDS: LACTULOSE 20 GM/30 ML UDC (FOR ORAL USE ONLY) PO SCH ×4 (05:20→21:55)
--- NOTE | 2020-01-27 08:38 | PN ---
Progress Note (short form) - Note Progress Note: Awake, alert, no fever, no abdominal pain. Ascitic fluid cultures still pending. Blood culture from admission -> S. mitis. CBC, BMP 01/26/20 06:20 01/26/20 06:20 Weight reported now as 261 lbs, which is roughly 25 lbs higher than her admission weight (I am ignoring the first weight of 215 lbs, which I feel was clearly an error). Remains with an obese, fluid-filled abdomen and 4+ bilateral LE edema. To begin diuresis: spironolactone 100 mg po daily furosemide 40 mg po daily Monitor electrolytes, BUN/creatinine,weight.
--- NOTE | 2020-01-27 09:01 | PN ---
Progress Note, Physician Chief Complaint: Septic Shock due to Alpha Hemolytic Streptococcus Cirrhosis : Etiology to be determined CHF HTN Venous Insufficiency Hepatic Encephalopathy Bacteremia History of Present Illness: NAD c/o pain on paracentesis site-clean with dressing dry and intact BP trending low Abd softer BLLE edema improved - Current Medication List Current Medications: Active Medications Acetaminophen (Tylenol -) 1,000 mg PO Q6H PRN PRN Reason: FEVER Last Admin: 01/26/20 14:31 Dose: 1,000 mg Documented by: Furosemide (Lasix -) 40 mg PO DAILY [facility] Ceftriaxone Sodium 2 gm/ (Dextrose) 100 mls @ 100 mls/hr IVPB DAILY [facility]; Protocol Last Admin: 01/26/20 10:07 Dose: 100 mls/hr Documented by: Lactulose (Cephulac (Oral Use)) 10 gm PO TID [facility] Last Admin: 01/27/20 05:20 Dose: 10 gm Documented by: Metoprolol Succinate (Toprol Xl -) 12.5 mg PO DAILY [facility] Nystatin (Mycostatin Cream -) 1 applic TP Q6HPO [facility] Last Admin: 01/27/20 05:38 Dose: 1 applic Documented by: Rifaximin (Xifaxan -) 550 mg PO BID [facility] Last Admin: 01/26/20 21:36 Dose: 550 mg Documented by: Spironolactone (Aldactone -) 100 mg PO DAILY [facility] - Objective Vital Signs: Vital Signs Temperature 97.9 F 01/27/20 06:00 Pulse Rate 69 01/27/20 06:00 Respiratory Rate 20 01/27/20 06:00 Blood Pressure 86/41 L 01/27/20 06:00 O2 Sat by Pulse Oximetry (%) 96 01/26/20 20:08 Constitutional: Yes: Well Nourished, No Distress, Calm, Obese Cardiovascular: Yes: Regular Rate and Rhythm Respiratory: Yes: Regular, CTA Bilaterally Gastrointestinal: Yes: Abdomen, Obese, Ascites, Hypoactive Bowel Sounds Genitourinary: Yes: Incontinence Musculoskeletal: Yes: Muscle Weakness Extremities: Yes: WNL Edema: No Peripheral Pulses WNL: Yes Neurological: Yes: Alert, Oriented Psychiatric: Yes: Alert, Oriented Labs: CBC, BMP 01/26/20 06:20 01/26/20 06:20 INR, PTT INR 1.49 (0.83-1.09) H 01/25/20 05:30 Problem List - Problems (1) Bacteremia Assessment/Plan: -Cultures: Microbiology 01/24/20 05:30 Blood - Peripheral Venous Blood Culture - Preliminary NO GROWTH OBTAINED AFTER 48 HOURS, INCUBATION TO CONTINUE FOR 3 DAYS. 01/22/20 10:45 Blood - Peripheral Venous Blood Culture - Final Streptococcus Mitis 01/22/20 10:45 Blood - Peripheral Venous Blood Culture - Final Streptococcus Mitis 01/24/20 10:45 Blood - Peripheral Venous Blood Culture - Preliminary NO GROWTH OBTAINED AFTER 24 HOURS, INCUBATION TO CONTINUE FOR 4 DAYS. 01/22/20 10:45 Urine - Urine Flores Urine Culture - Final NO GROWTH OBTAINED -ID on board -IV Rocephin -Repeat BC so far negative -Paracentesis micro pending Problems reviewed: Yes Code(s): R78.81 - BACTEREMIA (2) Abdominal pain Assessment/Plan: -CTAP: showed large ascitis -S/P paracentesis -Abd pain improved Problems reviewed: Yes Code(s): R10.9 - UNSPECIFIED ABDOMINAL PAIN (3) Altered mental status Problems reviewed: Yes Code(s): R41.82 - ALTERED MENTAL STATUS, UNSPECIFIED Qualifiers: Altered mental status type: disorientation Qualified Code(s): R41.0 - Disorientation, unspecified (4) Anemia Assessment/Plan: -2/2 to chronic disease -B12, Thyroid, iron + folate normal in recent workup -Stool OB negative -GI consult -Monitor trend -Transfuse only if Hg<7.0 to avoid fluid overload Problems reviewed: Yes Code(s): D64.9 - ANEMIA, UNSPECIFIED (5) Ascites Assessment/Plan: -S/P paracentesis -Rifaxamine + Lactulose -GI consult Problems reviewed: Yes Code(s): R18.8 - OTHER ASCITES Qualifiers: Ascites type: other type Qualified Code(s): R18.8 - Other ascites (6) CHF (congestive heart failure) Problems reviewed: Yes Code(s): I50.9 - HEART FAILURE, UNSPECIFIED (7) Cryptogenic cirrhosis Problems reviewed: Yes Code(s): K74.69 - OTHER CIRRHOSIS OF LIVER (8) Hepatic encephalopathy Problems reviewed: Yes Code(s): K72.90 - HEPATIC FAILURE, UNSPECIFIED WITHOUT COMA (9) Toxic metabolic encephalopathy Problems reviewed: Yes Code(s): G92 - TOXIC ENCEPHALOPATHY (10) Thrombocytopenia Assessment/Plan: 2/2 to chronic liver disease -Monitor Plts Problems reviewed: Yes Code(s): D69.6 - THROMBOCYTOPENIA, UNSPECIFIED (11) Hypotension Assessment/Plan: -D/C IVF -Hold toprol -Continue furosemide + spironolactone -Cardiology consult -monitor vitals Problems reviewed: Yes Code(s): I95.9 - HYPOTENSION, UNSPECIFIED (12) Hepatorenal syndrome Assessment/Plan: -Nephrology consult -Monitor Cr Problems reviewed: Yes Code(s): K76.7 - HEPATORENAL SYNDROME Assessment/Plan See problem list
[2020-01-27 09:22] LABS: BASO % 0.6 % (0-2.0); EOS % 7.6 % (0-4.5); HEMATOCRIT 23.9 % (32.4-45.2); HEMOGLOBIN 7.8 GM/dL (10.7-15.3); LYMPH % 17.7 % (8-40); MCHC 32.6 g/dl (32.0-36.0); MEAN CELL VOLUME 89.1 fl (80-96); MEAN PLT VOLUME 10.4 fl (7.5-11.1); MONO % 17.6 % (3.8-10.2); NEUT % 56.5 % (42.8-82.8); PLATELET COUNT 57 K/MM3 (134-434); RBC 2.69 M/mm3 (3.60-5.2); RDW 17.1 % (11.6-15.6); WHITE BLOOD COUNT 5.4 K/mm3 (4.0-10.0)
[2020-01-27 09:40] LABS: ALBUMIN 1.4 g/dl (3.4-5.0); BLOOD UREA NITROGEN 15.3 mg/dL (7-18); CALCIUM 7.7 mg/dL (8.5-10.1); CREATININE 1.3 mg/dL (0.55-1.3); MAGNESIUM 2.2 mg/dL (1.8-2.4); PHOSPHOROUS 2.4 mg/dL (2.5-4.9); POTASSIUM 3.9 mmol/L (3.5-5.1); TOT PROT 5.9 g/dl (6.4-8.2)
[2020-01-27] MEDS ORDERED: DEXTROSE 5%-WATER 100 ML IVPB ONE (10:33)
[2020-01-27] MEDS: CEFTRIAXONE 2 GM in DEXTROSE 5%-WATER 100 ML IVPB SCH (10:37)
[2020-01-27] MEDS: RIFAXIMIN 550 MG TABLET (UD) PO SCH ×2 (10:37→21:51)
[2020-01-27] MEDS: FUROSEMIDE 40 MG TABLET (FP) PO SCH (10:37)
[2020-01-27] MEDS: SPIRONOLACTONE 25 MG TABLET PO SCH (10:37)
--- NOTE | 2020-01-27 11:53 | PN ---
Progress Note (short form) - Note Progress Note: PULMONARY Denies shortness of breath, cough. No fevers recorded. Vital Signs Period Temp Pulse Resp BP Sys/Patel Pulse Ox Last 24 Hr 96.6 F-98.4 F 68-78 20-20 86-115/41-52 96 Gen: NAD in chair Heart: RRR Lung: decreased breath sounds at the bases Abd: distended, +ascites Ext: + edema CBC, BMP 01/27/20 06:20 01/27/20 06:00 Active Medications Acetaminophen (Tylenol -) 1,000 mg PO Q6H PRN PRN Reason: FEVER Last Admin: 01/26/20 14:31 Dose: 1,000 mg Documented by: Furosemide (Lasix -) 40 mg PO DAILY [facility] Last Admin: 01/27/20 10:37 Dose: 40 mg Documented by: Ceftriaxone Sodium 2 gm/ (Dextrose) 100 mls @ 100 mls/hr IVPB DAILY [facility]; Protocol Last Admin: 01/27/20 10:37 Dose: 100 mls/hr Documented by: Lactulose (Cephulac (Oral Use)) 10 gm PO TID [facility] Last Admin: 01/27/20 05:20 Dose: 10 gm Documented by: Metoprolol Succinate (Toprol Xl -) 12.5 mg PO DAILY [facility] Nystatin (Mycostatin Cream -) 1 applic TP Q6HPO [facility] Last Admin: 01/27/20 05:38 Dose: 1 applic Documented by: Rifaximin (Xifaxan -) 550 mg PO BID [facility] Last Admin: 01/27/20 10:37 Dose: 550 mg Documented by: Spironolactone (Aldactone -) 100 mg PO DAILY [facility] [place] Last Admin: 01/27/20 10:37 Dose: Not Given Documented by: A/P Strep Bacteremia Septic Shock resolving Liver Cirrhosis Ascites LV Diastolic Dysfunction HTN Hyperlipidemia Anemia Thrombocytopenia - continue antibiotics - f/u pending ascites studies, cultures - O2 to keep SpO2 >90% - continue lasix, aldactone - DVT prophylaxis
--- NOTE | 2020-01-27 12:13 | CON.CARD ---
Consult Consult Specialty:: Cardiology Referred by:: Reza Bauman Reason for Consultation:: Low bp - History of Present Illness Chief Complaint: edema History of Present Illness: 74 y/o female with a pmhx of htn, hld, diastolic chf, cirrhosis, venous insufficiency, and h/o portal vein thrombosis in past admitted with lower back pain, chills, and LE edema. Was treated for sepsis in ICU on antibiotics. need pressor support earlier in admission. Now on furosemide/aldactone. BP this morning was lower. Patient with no complaints. No chest pain, sob, or palpitations. 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) History of Recent Travel: No Home Medications - Allergies Allergies/Adverse Reactions: Allergies Allergy/AdvReac Type Severity Reaction Status Date / Time No Known Allergies Allergy Verified 03/02/19 21:45 - Home Medications Home Medications: Ambulatory Orders Torsemide [Demadex -] 10 ml PO DAILY 06/04/18 Spironolactone [Aldactone] 25 mg PO DAILY 09/05/18 Lactulose 10 gm PO TID 01/22/20 Metoprolol Succinate [Toprol XL -] 25 mg PO DAILY 01/22/20 Rifaximin [Xifaxan] 550 mg PO BID 01/24/20 Vital Signs: Vital Signs Temperature 96.6 F L 01/27/20 10:00 Pulse Rate 68 01/27/20 10:00 Respiratory Rate 20 01/27/20 10:00 Blood Pressure 95/44 L 01/27/20 10:00 O2 Sat by Pulse Oximetry (%) 96 01/26/20 20:08 Constitutional: Yes: No Distress Neck: Yes: Supple Respiratory: Yes: CTA Bilaterally Gastrointestinal: Yes: Soft, Ascites Cardiovascular: Yes: Regular Rate and Rhythm JVD: No Carotid Bruit: No Heart Sounds: Yes: S1, S2 Edema: LLE: 2+, RLE: 2+ - Other Data Labs, Other Data: CBC, BMP 01/27/20 06:20 01/27/20 06:00 INR, PTT INR 1.49 (0.83-1.09) H 01/25/20 05:30 Imaging - Results Chest X-ray: Report Reviewed Cat Scan: Report Reviewed EKG: Image Reviewed Problem List - Problems (1) Hypotension Code(s): I95.9 - HYPOTENSION, UNSPECIFIED (2) Severe sepsis Code(s): A41.9 - SEPSIS, UNSPECIFIED ORGANISM; R65.20 - SEVERE SEPSIS WITHOUT SEPTIC SHOCK Assessment/Plan 74 y/o female with a pmhx of htn, hld, diastolic chf, cirrhosis, venous insufficiency, and h/o portal vein thrombosis in past admitted with lower back pain, chills, and LE edema. Was treated for sepsis in ICU on antibiotics. need pressor support earlier in admission. Now on furosemide/aldactone. BP this morning was lower. Patient with no complaints. No chest pain, sob, or palpitations. No fevers EKG sinus with no ischemic changes Echocardiogram 01/23/20: normal LVEF, no significant valve disease, mod to sev lae, pasp 28 +bld cx 01/21 strep mitis CXR: no effusions or consolidations CT scan with ascites LA 3.8 1) Low bp -unlikely due to cardiac issues Echocardiogram with normal LVEF and PASP only 28mmHg Would hold metoprolol and spironolactone Continue Abx as per primary team
--- NOTE | 2020-01-27 12:20 | CON.NEP ---
Consult Consult Specialty:: nephrology Reason for Consultation:: cesario - History of Present Illness History of Present Illness: Maya Rodgers is a 74 y/o female with reported PMH significant for cryptogenic cirrhosis, HFpEF, HTN, HLD, venous insufficiency, hepatic encephalopathy, BIBEMS for back pain and dyspnea. She was found to be septic. Was febrile and hypotensive and was given fluids and sent to ICU. Her renal function worsened but has improved and she is on medsur floor now. Has no specific complaints. Says she urinates well. 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) History of Recent Travel: No Home Medications - Allergies Allergies/Adverse Reactions: Allergies Allergy/AdvReac Type Severity Reaction Status Date / Time No Known Allergies Allergy Verified 03/02/19 21:45 - Home Medications Home Medications: Ambulatory Orders Torsemide [Demadex -] 10 ml PO DAILY 06/04/18 Spironolactone [Aldactone] 25 mg PO DAILY 09/05/18 Lactulose 10 gm PO TID 01/22/20 Metoprolol Succinate [Toprol XL -] 25 mg PO DAILY 01/22/20 Rifaximin [Xifaxan] 550 mg PO BID 01/24/20 Review of Systems - Review of Systems Constitutional: reports: Chills Eyes: reports: No Symptoms HENT: reports: No Symptoms Neck: reports: No Symptoms Cardiovascular: reports: Edema Respiratory: reports: SOB Gastrointestinal: reports: No Symptoms Genitourinary: reports: No Symptoms Breasts: reports: No Symptoms Reported Musculoskeletal: reports: No Symptoms Integumentary: reports: No Symptoms Neurological: reports: No Symptoms Endocrine: reports: No Symptoms Hematology/Lymphatic: reports: No Symptoms Psychiatric: reports: No Symptoms Nephrology Consult - Height Height: 5 ft 6 in - Weight Weight: 261 lb 6 oz - BMI Body Mass Index (BMI): 42.2 - Lab Results CBC,BMP: CBC, BMP 01/27/20 06:20 01/27/20 06:00 Anion Gap: Anion Gap Anion Gap 6 MMOL/L (8-16) L 01/27/20 06:00 - Imaging Cat Scan: Report Reviewed (showed ascites and upper lobe cystic bronchiectasis) - Physical Examination Vital Signs: Vital Signs Temperature 96.6 F L 01/27/20 10:00 Pulse Rate 68 01/27/20 10:00 Respiratory Rate 20 01/27/20 10:00 Blood Pressure 95/44 L 01/27/20 10:00 O2 Sat by Pulse Oximetry (%) 96 01/26/20 20:08 Constitutional: Yes: Well Nourished, No Distress, Calm Eyes: Yes: Conjunctiva Clear HENT: Yes: Atraumatic, Normocephalic Neck: Yes: Supple, Trachea Midline Cardiovascular: Yes: Regular Rate and Rhythm Respiratory: Yes: Regular Gastrointestinal: Yes: Normal Bowel Sounds, Abdomen, Obese Musculoskeletal: Yes: WNL Extremities: Yes: WNL Edema: Yes Neurological: Yes: Alert, Oriented Psychiatric: Yes: Alert, Oriented Assessment/Plan IMPRESSION s/p CESARIO- improved. May have had CESARIO from hypotension/sepsis She is severely hypoalbuminemic and has low BPs Probable CKD obesity PLAN agree with lasix and aldactone particularly given ascites can try to get a urine sodium though would only help if its low since she is on diuretics and is expected to have high urine sodium avoid further hypotension, may try to give midodrine if BP drops would only give albumin if combined with the lasix that she is getting particularly if not responding to diuretic MV
[2020-01-27] MEDS: ALBUTEROL SO4 2.5/IPRATROPIUM 0.5 INH SOL 3 ML VIAL.NEB. NEB SCH ×3 (13:00→20:14)
[2020-01-28] MEDS: NYSTATIN 100,000 UNIT/GM TOPICAL CREAM 15 GM TUBE TP SCH ×4 (00:15→17:24)
[2020-01-28] MEDS: LACTULOSE 20 GM/30 ML UDC (FOR ORAL USE ONLY) PO SCH ×3 (05:26→21:21)
[2020-01-28 07:38] LABS: BASO % 0.6 % (0-2.0); EOS % 5.7 % (0-4.5); HEMATOCRIT 24.3 % (32.4-45.2); HEMOGLOBIN 7.8 GM/dL (10.7-15.3); LYMPH % 19.3 % (8-40); MCH 28.4 pg (25.7-33.7); MCHC 32.2 g/dl (32.0-36.0); MEAN CELL VOLUME 88.2 fl (80-96); MEAN PLT VOLUME 9.7 fl (7.5-11.1); MONO % 15.2 % (3.8-10.2); NEUT % 59.2 % (42.8-82.8); PLATELET COUNT 60 K/MM3 (134-434); RBC 2.76 M/mm3 (3.60-5.2); RDW 17.5 % (11.6-15.6)
[2020-01-28 07:55] LABS: ALBUMIN 1.4 g/dl (3.4-5.0); BILIRUBIN,TOTAL 1.2 mg/dL (0.2-1); BLOOD UREA NITROGEN 12.4 mg/dL (7-18); CALCIUM 7.9 mg/dL (8.5-10.1); CREATININE 1.3 mg/dL (0.55-1.3); MAGNESIUM 2.1 mg/dL (1.8-2.4); PHOSPHOROUS 2.7 mg/dL (2.5-4.9); POTASSIUM 3.9 mmol/L (3.5-5.1); TOT PROT 5.8 g/dl (6.4-8.2)
[2020-01-28] MEDS: ALBUTEROL SO4 2.5/IPRATROPIUM 0.5 INH SOL 3 ML VIAL.NEB. NEB SCH ×4 (08:06→20:17)
--- NOTE | 2020-01-28 08:39 | PN ---
Progress Note, Physician - Current Medication List Current Medications: Active Medications Acetaminophen (Tylenol -) 1,000 mg PO Q6H PRN PRN Reason: FEVER Last Admin: 01/26/20 14:31 Dose: 1,000 mg Documented by: Albuterol/Ipratropium (Duoneb -) 1 amp NEB RQID [facility] Last Admin: 01/27/20 20:14 Dose: 1 amp Documented by: Furosemide (Lasix -) 40 mg PO DAILY [facility] Last Admin: 01/27/20 10:37 Dose: 40 mg Documented by: Ceftriaxone Sodium 2 gm/ (Dextrose) 100 mls @ 100 mls/hr IVPB DAILY [facility]; Protocol Last Admin: 01/27/20 10:37 Dose: 100 mls/hr Documented by: Lactulose (Cephulac (Oral Use)) 10 gm PO TID [facility] Last Admin: 01/28/20 05:26 Dose: 10 gm Documented by: Metoprolol Succinate (Toprol Xl -) 12.5 mg PO DAILY [facility] Nystatin (Mycostatin Cream -) 1 applic TP Q6HPO [facility] Last Admin: 01/28/20 05:26 Dose: 1 applic Documented by: Rifaximin (Xifaxan -) 550 mg PO BID [facility] Last Admin: 01/27/20 21:51 Dose: 550 mg Documented by: Spironolactone (Aldactone -) 100 mg PO DAILY [facility] Last Admin: 01/27/20 10:37 Dose: Not Given Documented by: - Objective Vital Signs: Vital Signs Temperature 98.0 F 01/28/20 06:29 Pulse Rate 79 01/28/20 06:29 Respiratory Rate 20 01/28/20 06:29 Blood Pressure 101/61 01/28/20 06:29 O2 Sat by Pulse Oximetry (%) 97 01/27/20 21:00 Cardiovascular: Yes: S1, S2 Respiratory: Yes: Regular, CTA Bilaterally Gastrointestinal: Yes: Normal Bowel Sounds, Soft, Ascites, Distention Labs: CBC, BMP 01/28/20 05:40 01/28/20 05:40 INR, PTT INR 1.49 (0.83-1.09) H 01/25/20 05:30 Assessment/Plan - Problems (1) Bacteremia Assessment/Plan: -Cultures: Microbiology 01/24/20 05:30 Blood - Peripheral Venous Blood Culture - Preliminary NO GROWTH OBTAINED AFTER 48 HOURS, INCUBATION TO CONTINUE FOR 3 DAYS. 01/22/20 10:45 Blood - Peripheral Venous Blood Culture - Final Streptococcus Mitis 01/22/20 10:45 Blood - Peripheral Venous Blood Culture - Final Streptococcus Mitis 01/24/20 10:45 Blood - Peripheral Venous Blood Culture - Preliminary NO GROWTH OBTAINED AFTER 24 HOURS, INCUBATION TO CONTINUE FOR 4 DAYS. 01/22/20 10:45 Urine - Urine Flores Urine Culture - Final NO GROWTH OBTAINED -ID on board -IV Rocephin -Repeat BC so far negative -Paracentesis micro pending Problems reviewed: Yes Code(s): R78.81 - BACTEREMIA (2) Abdominal pain Assessment/Plan: -CTAP: showed large ascitis -S/P paracentesis -Abd pain improved Problems reviewed: Yes Code(s): R10.9 - UNSPECIFIED ABDOMINAL PAIN (3) Altered mental status Problems reviewed: Yes Code(s): R41.82 - ALTERED MENTAL STATUS, UNSPECIFIED Qualifiers: Altered mental status type: disorientation Qualified Code(s): R41.0 - Disorientation, unspecified (4) Anemia Assessment/Plan: -2/2 to chronic disease -B12, Thyroid, iron + folate normal in recent workup -Stool OB negative -GI consult -Monitor trend -Transfuse only if Hg<7.0 to avoid fluid overload Problems reviewed: Yes Code(s): D64.9 - ANEMIA, UNSPECIFIED (5) Ascites Assessment/Plan: -S/P paracentesis -Rifaxamine + Lactulose -GI consult Problems reviewed: Yes Code(s): R18.8 - OTHER ASCITES Qualifiers: Ascites type: other type Qualified Code(s): R18.8 - Other ascites (6) CHF (congestive heart failure) Problems reviewed: Yes Code(s): I50.9 - HEART FAILURE, UNSPECIFIED (7) Cryptogenic cirrhosis Problems reviewed: Yes Code(s): K74.69 - OTHER CIRRHOSIS OF LIVER (8) Hepatic encephalopathy Problems reviewed: Yes Code(s): K72.90 - HEPATIC FAILURE, UNSPECIFIED WITHOUT COMA (9) Toxic metabolic encephalopathy Problems reviewed: Yes Code(s): G92 - TOXIC ENCEPHALOPATHY (10) Thrombocytopenia Assessment/Plan: 2/2 to chronic liver disease -Monitor Plts Problems reviewed: Yes Code(s): D69.6 - THROMBOCYTOPENIA, UNSPECIFIED (11) Hypotension Assessment/Plan: -D/C IVF -Hold toprol -Continue furosemide + spironolactone -Cardiology consult -monitor vitals Problems reviewed: Yes Code(s): I95.9 - HYPOTENSION, UNSPECIFIED (12) Hepatorenal syndrome Assessment/Plan: -Nephrology consult -Monitor Cr Problems reviewed: Yes Code(s): K76.7 - HEPATORENAL SYNDROME Assessment/Plan
--- NOTE | 2020-01-28 09:30 | CON.GI ---
Consult Consult Specialty:: Gastroenterology Referred by:: Kelsie Montero NP Reason for Consultation:: Ascites - History of Present Illness Chief Complaint: Increasing abdominal girth History of Present Illness: This is not a 2nd GI consultation. I am using this format to enter additional information to sections that are not open as a progress note. Maya denies any h/o alcohol abuse of IVDA. No FH of liver disease. 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 She had a colonoscopy at [facility] but cannot recall with whom and what findings were made. No FH of GI cancer. No abdominal surgeries. She denies CHF. Echo reveals 67% EF. RV function normal. No major TR. 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 Place of : Other ([place]) History of Recent Travel: No Home Medications - Allergies Allergies/Adverse Reactions: Allergies Allergy/AdvReac Type Severity Reaction Status Date / Time No Known Allergies Allergy Verified 03/02/19 21:45 - Home Medications Home Medications: Ambulatory Orders Torsemide [Demadex -] 10 ml PO DAILY 06/04/18 Spironolactone [Aldactone] 25 mg PO DAILY 09/05/18 Lactulose 10 gm PO TID 01/22/20 Metoprolol Succinate [Toprol XL -] 25 mg PO DAILY 01/22/20 Rifaximin [Xifaxan] 550 mg PO BID 01/24/20 Family Medical History Family Hx Cardiac Disorders: Father ( 73 of [place]) Other Family History: Mother lived to Physical Exam-GI Vital Signs: Vital Signs Temperature 98.0 F 01/28/20 06:29 Pulse Rate 79 01/28/20 06:29 Respiratory Rate 20 01/28/20 06:29 Blood Pressure 101/61 01/28/20 06:29 O2 Sat by Pulse Oximetry (%) 97 01/27/20 21:00 Laboratory Tests 07/19/17 07/21/17 09/06/18 17:00 05:05 05:30 Iron TIBC Iron Saturation Ferritin Total Bilirubin AST ALT Alkaline Phosphatase Tumor Marker AFP 2.8 LIZETH Screen Smooth Musc &[employer] Intrp COVID-19 (RABIA) Hepatitis A IgM Ab Negative Hep A IgM Ab Confirm Negative Hepatitis A Ab Total Positive H Hep Bs Antigen Negative Hep Bs Antibody Non reactive Hep B Core Total Ab Negative Hep B Core IgM Ab Negative Hepatitis Be Antibody Negative Hepatitis Be Antigen Negative Hep C Ab Diagnostic 0.1 Hepatitis C Ab (EIA) 0.1 09/08/18 09/09/18 09/09/18 06:00 15:04 15:04 Iron 56 TIBC 157 L Iron Saturation 36 Ferritin 165.1 Total Bilirubin AST ALT Alkaline Phosphatase Tumor Marker AFP LIZETH Screen Negative Smooth Musc &[employer] Intrp 11 COVID-19 (RABIA) Hepatitis A IgM Ab Hep A IgM Ab Confirm Hepatitis A Ab Total Hep Bs Antigen Hep Bs Antibody Hep B Core Total Ab Hep B Core IgM Ab Hepatitis Be Antibody Hepatitis Be Antigen Hep C Ab Diagnostic Hepatitis C Ab (EIA) 01/22/20 01/28/20 11:10 05:40 Iron TIBC Iron Saturation Ferritin Total Bilirubin 1.2 H AST 48 H ALT 20 Alkaline Phosphatase 140 H Tumor Marker AFP LIZETH Screen Smooth Musc &[employer] Intrp COVID-19 (RABIA) Not detected Hepatitis A IgM Ab Hep A IgM Ab Confirm Hepatitis A Ab Total Hep Bs Antigen Hep Bs Antibody Hep B Core Total Ab Hep B Core IgM Ab Hepatitis Be Antibody Hepatitis Be Antigen Hep C Ab Diagnostic Hepatitis C Ab (EIA) Laboratory Tests 07/19/17 07/21/17 09/06/18 17:00 05:05 05:30 COVID-19 (RABIA) Hepatitis A IgM Ab Negative Hep A IgM Ab Confirm Negative Hepatitis A Ab Total Positive H Hep Bs Antigen Negative Hep Bs Antibody Non reactive Hep B Core Total Ab Negative Hep B Core IgM Ab Negative Hepatitis Be Antibody Negative Hepatitis Be Antigen Negative Hep C Ab Diagnostic 0.1 Hepatitis C Ab (EIA) 0.1 01/22/20 11:10 COVID-19 (RABIA) Not detected Hepatitis A IgM Ab Hep A IgM Ab Confirm Hepatitis A Ab Total Hep Bs Antigen Hep Bs Antibody Hep B Core Total Ab Hep B Core IgM Ab Hepatitis Be Antibody Hepatitis Be Antigen Hep C Ab Diagnostic Hepatitis C Ab (EIA) Constitutional: Yes: No Distress Cardiovascular: Yes: Regular Rate and Rhythm Respiratory: Yes: Diminished (at bases) Gastrointestinal Inspection: Yes: Distention, Other (bowel wall edema laterally) ...Auscultate: Yes: Hypoactive Bowel Sounds ...Palpate: Yes: Soft, Other (nontender) ...Percussion: Yes: Tympanitic ...Rectal Exam: Yes: Deferred Labs: CBC, BMP 01/28/20 05:40 01/28/20 05:40 INR, PTT INR 1.49 (0.83-1.09) H 01/25/20 05:30 Problem List - Problems (1) Ascites Code(s): R18.8 - OTHER ASCITES Qualifiers: Ascites type: other type Qualified Code(s): R18.8 - Other ascites (2) Cryptogenic cirrhosis Code(s): K74.69 - OTHER CIRRHOSIS OF LIVER (3) HTN (hypertension) Code(s): I10 - ESSENTIAL (PRIMARY) HYPERTENSION Assessment/Plan Impression: - I agree that the ascites most likely reflects cirrhosis due to KING as her cardiac function appears adequate enough s as not to invoke congestive hepatopathy. The fact that she takes Lactulose indicate that she has hepatic encephalopathy. I have advised referral to a liver center after discharge and ideally an EGD to exclude varices. - Not clear whether or not she is due for a repeat colonoscopy. I have advised her to ask Dr Lieberman. Plan: - Adjust diuretics to remote diuresis while watching carefully for hepatorenal syndrome. 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 Encouraged her to determine this with Dr Lieberman but she can followup in our office of he has no objections
[2020-01-28] MEDS ORDERED: DEXTROSE 5%-WATER 100 ML IVPB ONE (09:37)
[2020-01-28] MEDS: SPIRONOLACTONE 25 MG TABLET PO SCH (09:39)
[2020-01-28] MEDS: FUROSEMIDE 40 MG TABLET (FP) PO SCH (09:39)
[2020-01-28] MEDS: CEFTRIAXONE 2 GM in DEXTROSE 5%-WATER 100 ML IVPB SCH (09:39)
[2020-01-28] MEDS: RIFAXIMIN 550 MG TABLET (UD) PO SCH ×2 (09:39→21:21)
--- NOTE | 2020-01-28 10:51 | CONSULT ---
Consult Consult Specialty:: Hematology - History of Present Illness Chief Complaint: 74 y/o female with reported PMH significant for cryptogenic cirrhosis, HFpEF, HTN, HLD, venous insufficiency, hepatic encephalopathy, BIBEMS for back pain and dyspnea. She was found to be septic. Was febrile and hypotensive and was given fluids and sent to ICU. Her renal function worsened but has improved and she is on medsurg floor now. We are conluted for pancytopopenia. 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 Is aware of liver and kidney disease.) Physical Exam Vital Signs: Vital Signs Temperature 98.9 F 01/28/20 10:00 Pulse Rate 96 H 01/28/20 10:00 Respiratory Rate 01/28/20 10:00 Blood Pressure 100/53 L 01/28/20 10:00 O2 Sat by Pulse Oximetry (%) 97 01/27/20 21:00 Constitutional: Yes: Obese Eyes: Yes: WNL HENT: Yes: WNL Neck: Yes: WNL Cardiovascular: Yes: Regular Rate and Rhythm Respiratory: Yes: CTA Bilaterally Gastrointestinal: Yes: Ascites, Splenomegaly ...Rectal Exam: Yes: Deferred Renal/: Yes: Flores Present (Claims she gets out of bed and just recenlty walked.) Extremities: Yes: Other (Edema 2-3+) Labs: CBC, BMP 01/28/20 05:40 01/28/20 05:40 Assessment/Plan Pancytopenia. She had been transfused iRBCs and platelets on this admission. Hb improved, but plt slowly tranding lower - still no bleeding at this time and the platelet counts today is 52. B12, Thyroid, iron + folate normal in recent workup. Most likely anemia of chronic disease and renal dysfuniton. She is thogh to be in hepatorenal syndrome now. Unfotunately, the pancytopenia is only a reflection of hepatic and renal dysfunciton and chronic disease. Transfuse RBC or plateles as necessary for symptmatic bleeding or anemai only, and response to the ransfusions is expected to be suboptimal.
--- NOTE | 2020-01-28 11:09 | PN ---
Progress Note (short form) - Note Progress Note: transferred to floor alert Vital Signs Period Temp Pulse Resp BP Sys/Patel Pulse Ox Last 24 Hr 98.0 F-98.9 F 71-96 20-20 100-115/52-61 97-100 cor-rrr lungs clear abd soft,+sucut edema ext +edema CBC, BMP 01/28/20 05:40 01/28/20 05:40 Microbiology 01/25/20 18:05 Abdomen Gram Stain - Final 01/25/20 18:05 Abdomen Body Fluid Culture - Final NO GROWTH OF AEROBIC ORGANISMS AFTER 48 HOURS INCUBATION 01/25/20 18:05 Abdomen Anaerobic Culture - Final NO ANAEROBES WERE ISOLATED 01/24/20 10:45 Blood - Peripheral Venous Blood Culture - Preliminary NO GROWTH OBTAINED AFTER 96 HOURS, INCUBATION TO CONTINUE FOR 1 DAYS. 01/25/20 18:05 Abdomen PENNY Preparation - Preliminary 01/25/20 18:05 Abdomen Fungal Culture - Preliminary 01/25/20 18:05 Abdomen AFB Smear Concentration - Preliminary 01/25/20 18:05 Abdomen Mycobacterial Culture - Preliminary 01/24/20 05:30 Blood - Peripheral Venous Blood Culture - Preliminary NO GROWTH OBTAINED AFTER 96 HOURS, INCUBATION TO CONTINUE FOR 1 DAYS. 01/22/20 10:45 Blood - Peripheral Venous Blood Culture - Final Streptococcus Mitis 01/22/20 10:45 Blood - Peripheral Venous Blood Culture - Final Streptococcus Mitis 01/22/20 10:45 Urine - Urine Flores Urine Culture - Final NO GROWTH OBTAINED a/p sepsis bacteremia-strep sanguis-switch to rocephin liver cirrhosis ckd ascites ascities fluid cell count not c/w SBP echo no vegetations repeat blood cultures negative will need four weeks of rocephin for strep bacteremia
--- NOTE | 2020-01-28 14:23 | PN ---
Progress Note, Physician Chief Complaint: The patient appears comfortable with venti mask. But she reports shortness of breath. No chest pain or palpitation. History of Present Illness: 74 year-old woman with a PMHx of HTN, HLD, chronic diastolic CHF, cirrhosis, ascites, venous insufficiency, and h/o portal vein thrombosis in past admitted 01/22/20 with lower back pain, chills, and LE edema. Was treated for sepsis in ICU, required pressor support earlier in admission. Developed low BP while on furosemide and spironolactone. The patient has edema, anasarca with shortness of breath. No chest pain, or palpitations. No fevers EKG sinus with no ischemic changes Echocardiogram 01/23/20: Normal LV size, wall motion and systolic function. LVEF 62%. Abnormal diastolic relaxation. Normal RV. Moderate to severe LA dilatation. No significant valve disease. PASP 28 mmHg +Blood culture 01/22/20 strep sanguis CXR: No effusions or consolidations CT scan with ascites LA 3.8 The patient has been seen and followed by ID, Renal, GI and Heme. - Current Medication List Current Medications: Active Medications Acetaminophen (Tylenol -) 1,000 mg PO Q6H PRN PRN Reason: FEVER Last Admin: 01/26/20 14:31 Dose: 1,000 mg Documented by: Albuterol/Ipratropium (Duoneb -) 1 amp NEB RQID [facility] Last Admin: 01/27/20 20:14 Dose: 1 amp Documented by: Furosemide (Lasix -) 40 mg PO DAILY [facility] Last Admin: 01/28/20 09:39 Dose: 40 mg Documented by: Ceftriaxone Sodium 2 gm/ (Dextrose) 100 mls @ 100 mls/hr IVPB DAILY [facility]; Protocol Last Admin: 01/28/20 09:39 Dose: 100 mls/hr Documented by: Lactulose (Cephulac (Oral Use)) 10 gm PO TID [facility] Last Admin: 01/28/20 13:19 Dose: 10 gm Documented by: Metoprolol Succinate (Toprol Xl -) 12.5 mg PO DAILY [facility] Nystatin (Mycostatin Cream -) 1 applic TP Q6HPO [facility] Last Admin: 01/28/20 12:37 Dose: 1 applic Documented by: Rifaximin (Xifaxan -) 550 mg PO BID [facility] Last Admin: 01/28/20 09:39 Dose: 550 mg Documented by: Spironolactone (Aldactone -) 100 mg PO DAILY [facility] Last Admin: 01/28/20 09:39 Dose: 100 mg Documented by: - Objective Vital Signs: Vital Signs Temperature 98.5 F 01/28/20 13:32 Pulse Rate 86 01/28/20 13:32 Respiratory Rate 20 01/28/20 13:32 Blood Pressure 115/56 L 01/28/20 13:32 O2 Sat by Pulse Oximetry (%) 100 01/28/20 09:00 General: Well developed. Obese and chronic ill. No acute distress. Head: Normocephalic. Atraumatic, Eyes: PERRLA, EOMI. Sclerae anicteric. Pale. Neck: Supple. No JVD. No bruits. Heart: Normal S1, S2: Regular rhythm and rate. No murmur. No gallop or rub. Lungs: Symmetrical air entry. Clear to auscultation. No crackle. No wheezing or rhonchi. Abdomen: Distended. Ascites. Soft. Bowel sound positive. Non tender. No masses. Extremities: 2+ edema and dependent edema, anasarca. No clubbing or cyanosis. PD 2+, equal bilaterally. Neuro: Intact, no focal findings. AAO X3 Labs: CBC, BMP 01/28/20 05:40 01/28/20 05:40 INR, PTT INR 1.49 (0.83-1.09) H 01/25/20 05:30 Assessment/Plan 74 year-old woman with a PMHx of HTN, HLD, chronic diastolic CHF, cirrhosis, ascites, venous insufficiency, and h/o portal vein thrombosis in past admitted 01/22/20 with lower back pain, chills, and LE edema. Was treated for sepsis in ICU, required pressor support earlier in admission. Developed low BP while on furosemide and spironolactone. The patient has edema, anasarca with shortness of breath. No chest pain, or palpitations. No fevers EKG sinus with no ischemic changes Echocardiogram 01/23/20: Normal LV size, wall motion and systolic function. LVEF 62%. Abnormal diastolic relaxation. Normal RV. Moderate to severe LA dilatation. No significant valve disease. PASP 28 mmHg +Blood culture 01/22/20 strep sanguis CXR: No effusions or consolidations CT scan with ascites LA 3.8 The patient has been seen and followed by ID, Renal, GI and Heme. 1) Fluid overload (anasarca) with low normal blood pressure: -Unlikely due to cardiac issues Echocardiogram with normal LVEF and PASP only 28mmHg. Severe hypoalbuminemia is likely the cause. The patient has some dyspnea with clear lungs today. May increase oral furosemide to 40 mg BID. Continue current dose of metoprolol and spironolactone Continue Abx as per primary team and ID.
--- NOTE | 2020-01-28 14:42 | PN ---
Progress Note, Physician History of Present Illness: Pt seen and examined at bedside. She denies shortness of breath. - Current Medication List Current Medications: Active Medications Acetaminophen (Tylenol -) 1,000 mg PO Q6H PRN PRN Reason: FEVER Last Admin: 01/26/20 14:31 Dose: 1,000 mg Documented by: Albuterol/Ipratropium (Duoneb -) 1 amp NEB RQID [facility] Last Admin: 01/27/20 20:14 Dose: 1 amp Documented by: Furosemide (Lasix -) 40 mg PO DAILY [facility] Last Admin: 01/28/20 09:39 Dose: 40 mg Documented by: Ceftriaxone Sodium 2 gm/ (Dextrose) 100 mls @ 100 mls/hr IVPB DAILY [facility]; Protocol Last Admin: 01/28/20 09:39 Dose: 100 mls/hr Documented by: Lactulose (Cephulac (Oral Use)) 10 gm PO TID [facility] Last Admin: 01/28/20 13:19 Dose: 10 gm Documented by: Metoprolol Succinate (Toprol Xl -) 12.5 mg PO DAILY [facility] Nystatin (Mycostatin Cream -) 1 applic TP Q6HPO [facility] Last Admin: 01/28/20 12:37 Dose: 1 applic Documented by: Rifaximin (Xifaxan -) 550 mg PO BID [facility] Last Admin: 01/28/20 09:39 Dose: 550 mg Documented by: Spironolactone (Aldactone -) 100 mg PO DAILY [facility] Last Admin: 01/28/20 09:39 Dose: 100 mg Documented by: - Objective Vital Signs: Vital Signs Temperature 98.5 F 01/28/20 13:32 Pulse Rate 86 01/28/20 13:32 Respiratory Rate 20 01/28/20 13:32 Blood Pressure 115/56 L 01/28/20 13:32 O2 Sat by Pulse Oximetry (%) 100 01/28/20 09:00 Constitutional: Yes: Calm Eyes: Yes: Conjunctiva Clear Cardiovascular: Yes: S1, S2 Respiratory: Yes: CTA Bilaterally Gastrointestinal: Yes: Soft, Abdomen, Obese, Ascites Genitourinary: Yes: Incontinence Musculoskeletal: Yes: Muscle Weakness Edema: Yes Edema: LLE: 2+, RLE: 2+ Neurological: Yes: Oriented Labs: CBC, BMP 01/28/20 05:40 01/28/20 05:40 INR, PTT INR 1.49 (0.83-1.09) H 01/25/20 05:30 Assessment/Plan Current Medications Generic Name Dose Route Start Last Admin Trade Name Angelique PRN Reason Stop Dose Admin Acetaminophen 1,000 mg 01/25/20 21:56 01/26/20 14:31 Tylenol - PO 1,000 mg Q6H PRN Administration FEVER Albuterol/Ipratropium 1 amp 01/27/20 12:00 01/27/20 20:14 Duoneb - NEB 1 amp RQID [facility] Administration Furosemide 40 mg 01/27/20 10:00 01/28/20 09:39 Lasix - PO 40 mg DAILY [facility] Administration Ceftriaxone Sodium 2 gm/ 100 mls @ 100 mls/hr 01/25/20 13:30 01/28/20 09:39 Dextrose IVPB 100 mls/hr DAILY [facility] Administration Protocol Lactulose 10 gm 01/25/20 22:00 01/28/20 13:19 Cephulac (Oral Use) PO 10 gm TID [facility] Administration Metoprolol Succinate 12.5 mg 01/26/20 13:42 Toprol Xl - PO DAILY [facility] Nystatin 1 applic 01/26/20 00:00 01/28/20 12:37 Mycostatin Cream - TP 1 applic Q6HPO [facility] Administration Rifaximin 550 mg 01/25/20 22:00 01/28/20 09:39 Xifaxan - PO 550 mg BID [facility] Administration Spironolactone 100 mg 01/27/20 10:00 01/28/20 09:39 Aldactone - PO 100 mg DAILY [facility] Administration Impression 1. BLAINE 2. ascites 3. liver cirrhosis 4. volume overload 5. microscopic hematuria 6. sepsis Plan - cont lasix - cont aldacton - renal function stable - repeat labs in am
--- NOTE | 2020-01-28 15:13 | PN ---
Progress Note (short form) - Note Progress Note: Denies shortness of breath, cough. No fevers recorded. No acute events overnight. Intake & Output 01/25/20 01/26/20 01/27/20 01/28/20 23:59 23:59 23:59 23:59 Intake Total 2418 2590 1170 400 Output Total 1000 Balance 1418 2590 1170 400 Weight 245 lb 258 lb 261 lb 6 oz 259 lb Last Vital Signs Temp Pulse Resp BP Pulse Ox 98.5 F 86 20 115/56 L 100 01/28/20 13:32 01/28/20 13:32 01/28/20 13:32 01/28/20 13:32 01/28/20 09:00 Active Medications Acetaminophen (Tylenol -) 1,000 mg PO Q6H PRN PRN Reason: FEVER Last Admin: 01/26/20 14:31 Dose: 1,000 mg Documented by: Albuterol/Ipratropium (Duoneb -) 1 amp NEB RQID [facility] Last Admin: 01/27/20 20:14 Dose: 1 amp Documented by: Furosemide (Lasix -) 40 mg PO DAILY [facility] Last Admin: 01/28/20 09:39 Dose: 40 mg Documented by: Ceftriaxone Sodium 2 gm/ (Dextrose) 100 mls @ 100 mls/hr IVPB DAILY [facility]; Protocol Last Admin: 01/28/20 09:39 Dose: 100 mls/hr Documented by: Lactulose (Cephulac (Oral Use)) 10 gm PO TID [facility] Last Admin: 01/28/20 13:19 Dose: 10 gm Documented by: Metoprolol Succinate (Toprol Xl -) 12.5 mg PO DAILY [facility] Nystatin (Mycostatin Cream -) 1 applic TP Q6HPO [facility] Last Admin: 01/28/20 12:37 Dose: 1 applic Documented by: Rifaximin (Xifaxan -) 550 mg PO BID [facility] Last Admin: 01/28/20 09:39 Dose: 550 mg Documented by: Spironolactone (Aldactone -) 100 mg PO DAILY [facility] Last Admin: 01/28/20 09:39 Dose: 100 mg Documented by: Gen: NAD Heart: RRR Lung: decreased breath sounds at the bases Abd: distended, +ascites Ext: + edema Laboratory Results - last 24 hr 01/24/20 01/28/2001/27/20 10:45 05:40 05:40 WBC 6.0 RBC 2.76 L Hgb 7.8 L Hct 24.3 L MCV 88.2 MCH 28.4 MCHC 32.2 RDW 17.5 H Plt Count 60 L MPV 9.7 Absolute Neuts (auto) 3.5 Neutrophils % 59.2 Lymphocytes % 19.3 Monocytes % 15.2 H Eosinophils % 5.7 H Basophils % 0.6 Nucleated RBC % 0 Sodium 140 Potassium 3.9 Chloride 109 H Carbon Dioxide 27 Anion Gap 4 L BUN 12.4 Creatinine 1.3 Est GFR (CKD-EPI)AfAm 46.15 Est GFR (CKD-EPI)NonAf 39.82 Random Glucose 81 Calcium 7.9 L Phosphorus 2.7 Magnesium 2.1 Total Bilirubin 1.2 H AST 48 H ALT 20 Alkaline Phosphatase 140 H Total Protein 5.8 L Albumin 1.4 L TB Test (QFT) Nil 0.24 TB Test (QFT) Mitogen 8.87 TB Test (QFT) Ag 1 0.65 TB Test (QFT) Ag 2 0.45 TB Test (QFT) Positive H TB Positive Criteria A/P Strep Bacteremia Septic Shock resolving Liver Cirrhosis Ascites LV Diastolic Dysfunction HTN Hyperlipidemia Anemia Thrombocytopenia - continue antibiotics per ID - O2 to keep SpO2 >90% - continue lasix, aldactone - DVT prophylaxis Dr Bauman
[2020-01-29] MEDS: NYSTATIN 100,000 UNIT/GM TOPICAL CREAM 15 GM TUBE TP SCH ×4 (00:20→17:05)
[2020-01-29] MEDS: LACTULOSE 20 GM/30 ML UDC (FOR ORAL USE ONLY) PO SCH ×3 (05:58→21:03)
[2020-01-29] MEDS: ALBUTEROL SO4 2.5/IPRATROPIUM 0.5 INH SOL 3 ML VIAL.NEB. NEB SCH ×4 (08:00→20:23)
[2020-01-29 08:16] LABS: BASO % 0.5 % (0-2.0); HEMATOCRIT 24.2 % (32.4-45.2); HEMOGLOBIN 7.8 GM/dL (10.7-15.3); LYMPH % 18.3 % (8-40); MCH 28.7 pg (25.7-33.7); MCHC 32.4 g/dl (32.0-36.0); MEAN CELL VOLUME 88.5 fl (80-96); MEAN PLT VOLUME 9.5 fl (7.5-11.1); MONO % 14.8 % (3.8-10.2); NEUT % 61.4 % (42.8-82.8); PLATELET COUNT 63 K/MM3 (134-434); RBC 2.73 M/mm3 (3.60-5.2); RDW 17.3 % (11.6-15.6); WHITE BLOOD COUNT 7.4 K/mm3 (4.0-10.0)
[2020-01-29 08:25] LABS: ALBUMIN 1.4 g/dl (3.4-5.0); BILIRUBIN,TOTAL 1.5 mg/dL (0.2-1); BLOOD UREA NITROGEN 11.2 mg/dL (7-18); CALCIUM 8.1 mg/dL (8.5-10.1); CREATININE 1.3 mg/dL (0.55-1.3); MAGNESIUM 1.9 mg/dL (1.8-2.4); POTASSIUM 3.9 mmol/L (3.5-5.1); TOT PROT 5.9 g/dl (6.4-8.2)
[2020-01-29] MEDS ORDERED: DEXTROSE 5%-WATER 100 ML IVPB ONE (09:35)
[2020-01-29] MEDS: CEFTRIAXONE 2 GM in DEXTROSE 5%-WATER 100 ML IVPB SCH (09:42)
[2020-01-29] MEDS: SPIRONOLACTONE 25 MG TABLET PO SCH (09:42)
[2020-01-29] MEDS: FUROSEMIDE 40 MG TABLET (FP) PO SCH ×2 (09:43→15:09)
[2020-01-29] MEDS: RIFAXIMIN 550 MG TABLET (UD) PO SCH ×2 (09:43→21:03)
--- NOTE | 2020-01-29 11:19 | PN ---
Progress Note, Physician Chief Complaint: Septic Shock due to Alpha Hemolytic Streptococcus Cirrhosis : Etiology to be determined CHF HTN Venous Insufficiency Hepatic Encephalopathy Bacteremia History of Present Illness: NAD Abd softer BLLE edema improved Refused PT today - Current Medication List Current Medications: Active Medications Acetaminophen (Tylenol -) 1,000 mg PO Q6H PRN PRN Reason: FEVER Last Admin: 01/26/20 14:31 Dose: 1,000 mg Documented by: Albuterol/Ipratropium (Duoneb -) 1 amp NEB RQID [facility] Last Admin: 01/29/20 08:00 Dose: 1 amp Documented by: Amino Acids (Prosource No Carb Liquid Pkt) 30 ml PO BID@0800,1730 [facility] Furosemide (Lasix -) 40 mg PO DAILY [facility] Last Admin: 01/29/20 09:43 Dose: 40 mg Documented by: Ceftriaxone Sodium 2 gm/ (Dextrose) 100 mls @ 100 mls/hr IVPB DAILY [facility]; Protocol Last Admin: 01/29/20 09:42 Dose: 100 mls/hr Documented by: Lactulose (Cephulac (Oral Use)) 10 gm PO TID [facility] Last Admin: 01/29/20 05:58 Dose: 10 gm Documented by: Metoprolol Succinate (Toprol Xl -) 12.5 mg PO DAILY [facility] Nystatin (Mycostatin Cream -) 1 applic TP Q6HPO [facility] Last Admin: 01/29/20 05:59 Dose: 1 applic Documented by: Rifaximin (Xifaxan -) 550 mg PO BID [facility] Last Admin: 01/29/20 09:43 Dose: 550 mg Documented by: Spironolactone (Aldactone -) 100 mg PO DAILY [facility] Last Admin: 01/29/20 09:42 Dose: 100 mg Documented by: - Objective Vital Signs: Vital Signs Temperature 97.8 F 01/29/20 10:00 Pulse Rate 90 01/29/20 10:00 Respiratory Rate 20 01/29/20 10:00 Blood Pressure 108/56 L 01/29/20 10:00 O2 Sat by Pulse Oximetry (%) 94 L 01/29/20 10:00 Constitutional: Yes: Well Nourished, No Distress, Calm, Obese Cardiovascular: Yes: Regular Rate and Rhythm Respiratory: Yes: Regular, Diminished Gastrointestinal: Yes: Normal Bowel Sounds, Abdomen, Obese, Ascites Genitourinary: Yes: Incontinence Musculoskeletal: Yes: Muscle Weakness Extremities: Yes: WNL Edema: Yes Edema: LLE: 2+, RLE: 2+ Peripheral Pulses WNL: Yes Neurological: Yes: Alert, Oriented Psychiatric: Yes: Alert, Oriented Labs: CBC, BMP 01/29/20 07:40 01/29/20 06:00 INR, PTT INR 1.49 (0.83-1.09) H 01/25/20 05:30 Problem List - Problems (1) Bacteremia Assessment/Plan: -Cultures: Microbiology 01/24/20 05:30 Blood - Peripheral Venous Blood Culture - Preliminary NO GROWTH OBTAINED AFTER 48 HOURS, INCUBATION TO CONTINUE FOR 3 DAYS. 01/22/20 10:45 Blood - Peripheral Venous Blood Culture - Final Streptococcus Mitis 01/22/20 10:45 Blood - Peripheral Venous Blood Culture - Final Streptococcus Mitis 01/24/20 10:45 Blood - Peripheral Venous Blood Culture - Preliminary NO GROWTH OBTAINED AFTER 24 HOURS, INCUBATION TO CONTINUE FOR 4 DAYS. 01/22/20 10:45 Urine - Urine Flores Urine Culture - Final NO GROWTH OBTAINED -ID on board -IV Rocephin- needs 4 weeks -Repeat BC so far negative -Paracentesis micro pending Problems reviewed: Yes Code(s): R78.81 - BACTEREMIA (2) Abdominal pain Assessment/Plan: -CTAP: showed large ascitis -S/P paracentesis -Abd pain improved Problems reviewed: Yes Code(s): R10.9 - UNSPECIFIED ABDOMINAL PAIN (3) Altered mental status Problems reviewed: Yes Code(s): R41.82 - ALTERED MENTAL STATUS, UNSPECIFIED Qualifiers: Altered mental status type: disorientation Qualified Code(s): R41.0 - Disorientation, unspecified (4) Anemia Assessment/Plan: -2/2 to chronic disease -B12, Thyroid, iron + folate normal in recent workup -Stool OB negative -GI consult -Monitor trend -Transfuse only if Hg<7.0 to avoid fluid overload Problems reviewed: Yes Code(s): D64.9 - ANEMIA, UNSPECIFIED (5) Ascites Assessment/Plan: -S/P paracentesis -Rifaxamine + Lactulose -GI consult -Furosemide 40 mg po bid -Aldactone 100 mg po daily Problems reviewed: Yes Code(s): R18.8 - OTHER ASCITES Qualifiers: Ascites type: other type Qualified Code(s): R18.8 - Other ascites (6) CHF (congestive heart failure) Problems reviewed: Yes Code(s): I50.9 - HEART FAILURE, UNSPECIFIED (7) Cryptogenic cirrhosis Assessment/Plan: -Lactulose + Rifaximin Problems reviewed: Yes Code(s): K74.69 - OTHER CIRRHOSIS OF LIVER (8) Hepatic encephalopathy Problems reviewed: Yes Code(s): K72.90 - HEPATIC FAILURE, UNSPECIFIED WITHOUT COMA (9) Toxic metabolic encephalopathy Problems reviewed: Yes Code(s): G92 - TOXIC ENCEPHALOPATHY (10) Thrombocytopenia Assessment/Plan: 2/ to chronic liver disease -Monitor Plts Problems reviewed: Yes Code(s): D69.6 - THROMBOCYTOPENIA, UNSPECIFIED (11) Hypotension Assessment/Plan: -D/C IVF -Hold toprol -Continue furosemide + spironolactone -Cardiology consult -monitor vitals Problems reviewed: Yes Code(s): I95.9 - HYPOTENSION, UNSPECIFIED (12) Hepatorenal syndrome Assessment/Plan: -Nephrology consult -Monitor Cr Problems reviewed: Yes Code(s): K76.7 - HEPATORENAL SYNDROME Assessment/Plan See problem list Spoke to son Jefferson, who will in turn speak to Russel who lives with the pt. Pt has [employer] 8hrs/day Will need PICC line for rocephin 2 gm daily for 4 weeks.
--- NOTE | 2020-01-29 11:31 | PN ---
Progress Note, Physician History of Present Illness: no overnight events. no new complaints. - Current Medication List Current Medications: Active Medications Acetaminophen (Tylenol -) 1,000 mg PO Q6H PRN PRN Reason: FEVER Last Admin: 01/26/20 14:31 Dose: 1,000 mg Documented by: Albuterol/Ipratropium (Duoneb -) 1 amp NEB RQID [facility] Last Admin: 01/29/20 08:00 Dose: 1 amp Documented by: Amino Acids (Prosource No Carb Liquid Pkt) 30 ml PO BID@0800,1730 [facility] Furosemide (Lasix -) 40 mg PO DAILY [facility] Last Admin: 01/29/20 09:43 Dose: 40 mg Documented by: Ceftriaxone Sodium 2 gm/ (Dextrose) 100 mls @ 100 mls/hr IVPB DAILY [facility]; Protocol Last Admin: 01/29/20 09:42 Dose: 100 mls/hr Documented by: Lactulose (Cephulac (Oral Use)) 10 gm PO TID [facility] Last Admin: 01/29/20 05:58 Dose: 10 gm Documented by: Metoprolol Succinate (Toprol Xl -) 12.5 mg PO DAILY [facility] Nystatin (Mycostatin Cream -) 1 applic TP Q6HPO [facility] Last Admin: 01/29/20 05:59 Dose: 1 applic Documented by: Rifaximin (Xifaxan -) 550 mg PO BID [facility] Last Admin: 01/29/20 09:43 Dose: 550 mg Documented by: Spironolactone (Aldactone -) 100 mg PO DAILY [facility] Last Admin: 01/29/20 09:42 Dose: 100 mg Documented by: - Objective Vital Signs: Vital Signs Temperature 97.8 F 01/29/20 10:00 Pulse Rate 90 01/29/20 10:00 Respiratory Rate 01/29/20 10:00 Blood Pressure 108/56 L 01/29/20 10:00 O2 Sat by Pulse Oximetry (%) 94 L 01/29/20 10:00 Constitutional: Yes: No Distress, Calm Eyes: Yes: Conjunctiva Clear, EOM Intact HENT: Yes: Atraumatic, Normocephalic Neck: Yes: Supple, Trachea Midline Cardiovascular: Yes: Regular Rate and Rhythm, S1, S2. No: Bradycardia, Tachycardia, Pulse Irregular, Bruit, JVD, Gallop, Murmur, Rub, S3, S4, Varicosities Respiratory: Yes: Regular. No: Rales, Rhonchi, SOB, Wheezes Gastrointestinal: Yes: Normal Bowel Sounds, Soft Edema: LLE: 1+, RLE: 1+ Peripheral Pulses WNL: Yes Peripheral Pulses: Left Doralis Pedis: 2+, Right Dorsalis Pedis: 2+ Neurological: Yes: Alert, Oriented Psychiatric: Yes: Alert, Oriented Labs: CBC, BMP 01/29/20 07:40 01/29/20 06:00 INR, PTT INR 1.49 (0.83-1.09) H 01/25/20 05:30 - ....Imaging Chest X-ray: Report Reviewed, Image Reviewed EKG: Report Reviewed, Image Reviewed Other: Report Reviewed, Image Reviewed Assessment/Plan 74 year-old woman with a PMHx of HTN, HLD, chronic diastolic CHF, cirrhosis, ascites, venous insufficiency, and h/o portal vein thrombosis in past admitted 01/22/20 with lower back pain, chills, and LE edema. Was treated for sepsis in ICU, required pressor support earlier in admission. Developed low BP while on furosemide and spironolactone. The patient has edema, anasarca with shortness of breath. No chest pain, or palp itations. No fevers EKG sinus with no ischemic changes Echocardiogram 01/23/20: Normal LV size, wall motion and systolic function. LVEF 62%. Abnormal diastolic relaxation. Normal RV. Moderate to severe LA dilatation. No significant valve disease. PASP 28 mmHg +Blood culture 01/22/20 strep sanguis CXR: No effusions or consolidations CT scan with ascites LA 3.8 The patient has been seen and followed by ID, Renal, GI and Heme. 1) Fluid overload (anasarca) with low normal blood pressure: -Unlikely due to cardiac issues Echocardiogram with normal LVEF and PASP only 28mmHg. Severe hypoalbuminemia is likely the cause. The patient has some dyspnea with clear lungs today. May increase oral furosemide to 40 mg BID. Continue current dose of metoprolol and spironolactone Continue Abx as per primary team and ID.
[2020-01-29 12:07] LABS: BODY FLUID ALBUMIN 0.5 g/dL (Not Estab.)
--- NOTE | 2020-01-29 13:25 | PN ---
Progress Note (short form) - Note Progress Note: Denies shortness of breath, cough. No fevers recorded. No acute events overnight. Intake & Output 01/26/20 01/27/20 01/28/20 01/29/20 23:59 23:59 23:59 23:59 Intake Total 2590 1170 1000 200 Output Total 250 Balance 2590 1170 750 200 Weight 258 lb 261 lb 6 oz 259 lb 256 lb 6 oz Last Vital Signs Temp Pulse Resp BP Pulse Ox 97.8 F 90 20 108/56 L 94 L 01/29/20 10:00 01/29/20 10:00 01/29/20 10:00 01/29/20 10:00 01/29/20 10:00 Active Medications Acetaminophen (Tylenol -) 1,000 mg PO Q6H PRN PRN Reason: FEVER Last Admin: 01/26/20 14:31 Dose: 1,000 mg Documented by: Albuterol/Ipratropium (Duoneb -) 1 amp NEB RQID [facility] Last Admin: 01/29/20 11:35 Dose: Not Given Documented by: Amino Acids (Prosource No Carb Liquid Pkt) 30 ml PO BID@0800,1730 [facility] Furosemide (Lasix -) 40 mg PO DAILY [facility] Last Admin: 01/29/20 09:43 Dose: 40 mg Documented by: Ceftriaxone Sodium 2 gm/ (Dextrose) 100 mls @ 100 mls/hr IVPB DAILY [facility]; Protocol Last Admin: 01/29/20 09:42 Dose: 100 mls/hr Documented by: Lactulose (Cephulac (Oral Use)) 10 gm PO TID [facility] Last Admin: 01/29/20 05:58 Dose: 10 gm Documented by: Metoprolol Succinate (Toprol Xl -) 12.5 mg PO DAILY [facility] Nystatin (Mycostatin Cream -) 1 applic TP Q6HPO [facility] Last Admin: 01/29/20 12:39 Dose: 1 applic Documented by: Rifaximin (Xifaxan -) 550 mg PO BID [facility] Last Admin: 01/29/20 09:43 Dose: 550 mg Documented by: Spironolactone (Aldactone -) 100 mg PO DAILY [facility] Last Admin: 01/29/20 09:42 Dose: 100 mg Documented by: Gen: NAD Heart: RRR Lung: decreased breath sounds at the bases Abd: distended, +ascites Ext: + edema Laboratory Results - last 24 hr 01/25/20 01/29/20 01/29/20 18:05 06:00 07:40 WBC 7.4 RBC 2.73 L Hgb 7.8 L Hct 24.2 L MCV 88.5 MCH 28.7 MCHC 32.4 RDW 17.3 H Plt Count 63 L MPV 9.5 Absolute Neuts (auto) 4.5 Neutrophils % 61.4 Lymphocytes % 18.3 Monocytes % 14.8 H Eosinophils % 5.0 H Basophils % 0.5 Nucleated RBC % 0 Sodium 139 Potassium 3.9 Chloride 108 H Carbon Dioxide 27 Anion Gap 4 L BUN 11.2 Creatinine 1.3 Est GFR (CKD-EPI)AfAm 46.15 Est GFR (CKD-EPI)NonAf 39.82 Random Glucose 86 Calcium 8.1 L Phosphorus 3.0 Magnesium 1.9 Total Bilirubin 1.5 H AST 46 H ALT 18 Alkaline Phosphatase 105 Total Protein 5.9 L Albumin 1.4 L Fluid Glucose 104 Fluid Total Protein 1.5 Fluid Albumin 0.5 Body Fluid LDH Source 94 Fluid Amylase 35 Fluid Triglycerides 18 A/P Strep Bacteremia Septic Shock resolving Liver Cirrhosis Ascites LV Diastolic Dysfunction HTN Hyperlipidemia Anemia Thrombocytopenia - continue antibiotics per ID - O2 to keep SpO2 >90% - continue lasix, aldactone - DVT prophylaxis Dr Bauman
--- NOTE | 2020-01-29 14:04 | PATH ---
Cytology Non-Gynecological Report Patient Name: FRANSISCO BURDEN [facility]. Rec. #: [id number] /Age/Gender: 1945 (Age: 74) / F Account: [id number] Location: [address] [place] [address] Taken: 01/24/2020 Received: 01/28/2020 Reported: 01/29/2020 Physicians: Fatmata Arnold M.D. Specimen(s) Received A: ABDOMINAL FLUID IN ALCOHOL B: ABDOMINAL FLUID FRESH Clinical History Ascites Final Diagnosis A & B: ABDOMINAL FLUID, PARACENTESIS: SATISFACTORY FOR EVALUATION. NEGATIVE FOR MALIGNANT CELLS. MESOTHELIAL CELLS, MACROPHAGES AND LYMPHOCYTES PRESENT. Electronically Signed Grabiel Barajas M.D. Gross Description A. Approximately 50cc of yellow fluid received fixed in 50% alcohol. One cytospin and one cellblock prepared. B. Approximately 250cc of izzy colored fluid received fresh. One cytospin and one cellblock prepared.
--- NOTE | 2020-01-29 14:35 | PN ---
Progress Note, Physician History of Present Illness: Pt seen and examined at bedside. She says that she feels better today. She is in better spirits. - Current Medication List Current Medications: Active Medications Acetaminophen (Tylenol -) 1,000 mg PO Q6H PRN PRN Reason: FEVER Last Admin: 01/26/20 14:31 Dose: 1,000 mg Documented by: Albuterol/Ipratropium (Duoneb -) 1 amp NEB RQID [facility] Last Admin: 01/29/20 11:35 Dose: Not Given Documented by: Amino Acids (Prosource No Carb Liquid Pkt) 30 ml PO BID@0800,1730 [facility] Furosemide (Lasix -) 40 mg PO BIDLASIX [facility] Ceftriaxone Sodium 2 gm/ (Dextrose) 100 mls @ 100 mls/hr IVPB DAILY [facility]; Protocol Last Admin: 01/29/20 09:42 Dose: 100 mls/hr Documented by: Lactulose (Cephulac (Oral Use)) 10 gm PO TID [facility] Last Admin: 01/29/20 05:58 Dose: 10 gm Documented by: Nystatin (Mycostatin Cream -) 1 applic TP Q6HPO [facility] Last Admin: 01/29/20 12:39 Dose: 1 applic Documented by: Rifaximin (Xifaxan -) 550 mg PO BID [facility] Last Admin: 01/29/20 09:43 Dose: 550 mg Documented by: Spironolactone (Aldactone -) 100 mg PO DAILY [facility] Last Admin: 01/29/20 09:42 Dose: 100 mg Documented by: - Objective Vital Signs: Vital Signs Temperature 97.8 F 01/29/20 10:00 Pulse Rate 90 01/29/20 10:00 Respiratory Rate 20 01/29/20 10:00 Blood Pressure 108/56 L 01/29/20 10:00 O2 Sat by Pulse Oximetry (%) 94 L 01/29/20 10:00 Constitutional: Yes: Calm Eyes: Yes: Conjunctiva Clear HENT: Yes: Atraumatic Neck: Yes: Supple Cardiovascular: Yes: S1, S2 Respiratory: Yes: CTA Bilaterally Gastrointestinal: Yes: Soft, Abdomen, Obese, Ascites Genitourinary: Yes: WNL Musculoskeletal: Yes: WNL Edema: Yes Edema: LLE: 2+, RLE: 2+ Neurological: Yes: Oriented Psychiatric: Yes: Oriented Labs: CBC, BMP 06/09/20 07:40 01/29/20 06:00 INR, PTT INR 1.49 (0.83-1.09) H 01/25/20 05:30 Assessment/Plan Current Medications Generic Name Dose Route Start Last Admin Trade Name Freq PRN Reason Stop Dose Admin Acetaminophen 1,000 mg 01/25/20 21:56 01/26/20 14:31 Tylenol - PO 1,000 mg Q6H PRN Administration FEVER Albumin Human 25 gm 01/29/20 14:45 Albumin Human 25% IVPB 01/29/20 20:46 Q6H [facility] Albuterol/Ipratropium 1 amp 01/27/20 12:00 01/29/20 11:35 Duoneb - NEB Not Given RQID [facility] Amino Acids 30 ml 01/29/20 17:30 Prosource No Carb Liquid Pkt PO BID@0800,1730 [facility] Furosemide 40 mg 01/29/20 14:15 Lasix - PO BIDLASIX [facility] Ceftriaxone Sodium 2 gm/ 100 mls @ 100 mls/hr 01/25/20 13:30 01/29/20 09:42 Dextrose IVPB 100 mls/hr DAILY [facility] Administration Protocol Lactulose 10 gm 01/25/20 22:00 01/29/20 05:58 Cephulac (Oral Use) PO 10 gm TID [facility] Administration Nystatin 1 applic 01/26/20 00:00 01/29/20 12:39 Mycostatin Cream - TP 1 applic Q6HPO [facility] Administration Rifaximin 550 mg 01/25/20 22:00 01/29/20 09:43 Xifaxan - PO 550 mg BID [facility] Administration Spironolactone 100 mg 01/27/20 10:00 01/29/20 09:42 Aldactone - PO 100 mg DAILY [facility] Administration Impression 1. BLAINE 2. ascites 3. liver cirrhosis 4. volume overload 5. microscopic hematuria 6. sepsis Plan - cont lasix and aldactone - will give albumin - discussed with medical team - monitor volume status - repeat labs in am
--- NOTE | 2020-01-29 16:30 | PN ---
Progress Note (short form) - Note Progress Note: breathing improved after neb no complaints alert Vital Signs Period Temp Pulse Resp BP Sys/Patel Pulse Ox Last 24 Hr 97.5 F-99.0 F 87-99 20-20 107-120/43-60 94-100 cor-rrr lungs decreased bs at bases abd soft, _+edema subcutaneous tissue/flanks brittanie right side ext +edema CBC, BMP 01/29/20 07:40 01/29/20 06:00 Microbiology 01/24/20 10:45 Blood - Peripheral Venous Blood Culture - Final NO GROWTH AFTER 5 DAYS INCUBATION 01/24/20 05:30 Blood - Peripheral Venous Blood Culture - Final NO GROWTH AFTER 5 DAYS INCUBATION 01/25/20 18:05 Abdomen Gram Stain - Final 01/25/20 18:05 Abdomen Body Fluid Culture - Final NO GROWTH OF AEROBIC ORGANISMS AFTER 48 HOURS INCUBATION 01/25/20 18:05 Abdomen Anaerobic Culture - Final NO ANAEROBES WERE ISOLATED 01/25/20 18:05 Abdomen PENNY Preparation - Preliminary 01/25/20 18:05 Abdomen Fungal Culture - Preliminary 01/25/20 18:05 Abdomen AFB Smear Concentration - Preliminary 01/25/20 18:05 Abdomen Mycobacterial Culture - Preliminary 01/22/20 10:45 Blood - Peripheral Venous Blood Culture - Final Streptococcus Mitis 01/22/20 10:45 Blood - Peripheral Venous Blood Culture - Final Streptococcus Mitis 01/22/20 10:45 Urine - Urine Flores Urine Culture - Final NO GROWTH OBTAINED a/p sepsis bacteremia-strep sanguis-continue rocephin liver cirrhosis ckd ascites volume overload started on diuretics ascities fluid cell count not c/w SBP echo no vegetations repeat blood cultures negative will need four weeks of rocephin for strep bacteremia
[2020-01-29] MEDS: ALBUMIN HUMAN 25% 100 ML VIAL IVPB SCH ×2 (16:35→21:24)
[2020-01-29] MEDS: AMINO ACIDS/PROTEIN HYDROLYS 30 ML LIQUID.PKT PO SCH (17:05)
[2020-01-30] MEDS: NYSTATIN 100,000 UNIT/GM TOPICAL CREAM 15 GM TUBE TP SCH ×4 (03:14→21:30)
[2020-01-30] MEDS: LACTULOSE 20 GM/30 ML UDC (FOR ORAL USE ONLY) PO SCH ×4 (05:33→21:27)
[2020-01-30] MEDS: FUROSEMIDE 40 MG TABLET (FP) PO SCH ×2 (05:33→14:23)
[2020-01-30] MEDS: ALBUTEROL SO4 2.5/IPRATROPIUM 0.5 INH SOL 3 ML VIAL.NEB. NEB SCH ×4 (08:00→20:55)
[2020-01-30] MEDS: AMINO ACIDS/PROTEIN HYDROLYS 30 ML LIQUID.PKT PO SCH ×2 (08:55→17:13)
[2020-01-30] MEDS ORDERED: PT OWN MED DRAWER 7, Y5N ONE (09:06)
[2020-01-30] MEDS ORDERED: DEXTROSE 5%-WATER 100 ML IVPB ONE (09:07)
[2020-01-30] MEDS: CEFTRIAXONE 2 GM in DEXTROSE 5%-WATER 100 ML IVPB SCH (10:17)
[2020-01-30] MEDS: SPIRONOLACTONE 25 MG TABLET PO SCH (10:17)
[2020-01-30] MEDS: RIFAXIMIN 550 MG TABLET (UD) PO SCH ×2 (10:17→21:27)
--- NOTE | 2020-01-30 11:17 | PN ---
Progress Note (short form) - Note Progress Note: Hb 7.8 and plt63, slightly improved. I do no recommend transfusions at this time and will cotniue to follow. Elvin Randle MD
--- NOTE | 2020-01-30 11:22 | PN ---
Progress Note, Physician Chief Complaint: The patient appears comfortable with reported occasional SOB on NC. No chest pain or palpitation. History of Present Illness: 74 year-old woman with a PMHx of HTN, HLD, chronic diastolic CHF, cirrhosis, ascites, venous insufficiency, and h/o portal vein thrombosis in past admitted 01/22/20 with lower back pain, chills, and LE edema. Was treated for sepsis in ICU, required pressor support earlier in admission. Developed low BP while on furosemide and spironolactone. The patient has edema, anasarca with shortness of breath. No chest pain, or palpitations. No fevers EKG sinus with no ischemic changes Echocardiogram 01/23/20: Normal LV size, wall motion and systolic function. LVEF 62%. Abnormal diastolic relaxation. Normal RV. Moderate to severe LA dilatation. No significant valve disease. PASP 28 mmHg +Blood culture 01/22/20 strep sanguis CXR: No effusions or consolidations CT scan with ascites LA 3.8 The patient has been seen and followed by ID, Renal, GI and Heme. - Current Medication List Current Medications: Active Medications Acetaminophen (Tylenol -) 1,000 mg PO Q6H PRN PRN Reason: FEVER Last Admin: 01/26/20 14:31 Dose: 1,000 mg Documented by: Albuterol/Ipratropium (Duoneb -) 1 amp NEB RQID [facility] Last Admin: 01/29/20 20:23 Dose: 1 amp Documented by: Amino Acids (Prosource No Carb Liquid Pkt) 30 ml PO BID@0800,1730 [facility] Last Admin: 01/30/20 08:55 Dose: 30 ml Documented by: Furosemide (Lasix -) 40 mg PO BIDLASIX [facility] Last Admin: 01/30/20 05:33 Dose: 40 mg Documented by: Ceftriaxone Sodium 2 gm/ (Dextrose) 100 mls @ 100 mls/hr IVPB DAILY [facility]; Protocol Last Admin: 01/30/20 10:17 Dose: 100 mls/hr Documented by: Lactulose (Cephulac (Oral Use)) 10 gm PO TID [facility] Last Admin: 01/30/20 05:46 Dose: Not Given Documented by: Nystatin (Mycostatin Cream -) 1 applic TP Q6HPO [facility] Last Admin: 01/30/20 06:09 Dose: 1 applic Documented by: Rifaximin (Xifaxan -) 550 mg PO BID [facility] Last Admin: 01/30/20 10:17 Dose: 550 mg Documented by: Spironolactone (Aldactone -) 100 mg PO DAILY [facility] Last Admin: 01/30/20 10:17 Dose: 100 mg Documented by: - Objective Vital Signs: Vital Signs Temperature 98.5 F 01/30/20 05:00 Pulse Rate 92 H 01/30/20 05:00 Respiratory Rate 18 01/30/20 05:00 Blood Pressure 105/49 L 01/30/20 05:00 O2 Sat by Pulse Oximetry (%) 100 01/29/20 21:00 General: Well developed. Obese and chronic ill. No acute distress. Head: Normocephalic. Atraumatic, Eyes: PERRLA, EOMI. Sclerae anicteric. Pale. Neck: Supple. No JVD. No bruits. Heart: Normal S1, S2: Regular rhythm and rate. No murmur. No gallop or rub. Lungs: Symmetrical air entry. Clear to auscultation. No crackle. No wheezing or rhonchi. Abdomen: Distended. Ascites. Soft. Bowel sound positive. Non tender. No masses. Extremities: 1-2+ edema and dependent edema, anasarca. No clubbing or cyanosis. PD 2+, equal bilaterally. Neuro: Intact, no focal findings. AAO X3 Labs: CBC, BMP 01/29/20 07:40 01/29/20 06:00 INR, PTT INR 1.49 (0.83-1.09) H 01/25/20 05:30 Assessment/Plan 74 year-old woman with a PMHx of HTN, HLD, chronic diastolic CHF, cirrhosis, ascites, venous insufficiency, and h/o portal vein thrombosis in past admitted 01/22/20 with lower back pain, chills, and LE edema. Was treated for sepsis in ICU, required pressor support earlier in admission. Developed low BP while on f urosemide and spironolactone. The patient has edema, anasarca with shortness of breath. No chest pain, or palpitations. No fevers EKG sinus with no ischemic changes Echocardiogram 01/23/20: Normal LV size, wall motion and systolic function. LVEF 62%. Abnormal diastolic relaxation. Normal RV. Moderate to severe LA dilatation. No significant valve disease. PASP 28 mmHg +Blood culture 01/22/20 strep sanguis CXR: No effusions or consolidations CT scan with ascites LA 3.8 The patient has been seen and followed by ID, Renal, GI and Heme. 1) Fluid overload (anasarca) with low normal blood pressure: -Unlikely due to cardiac issues Echocardiogram with normal LVEF and PASP only 28mmHg. Severe hypoalbuminemia is likely the cause. The patient has some dyspnea with clear lungs today. Continue furosemide to 40 mg BID and try to keep a negative fluid balance. Continue current dose of metoprolol and spironolactone Continue Abx as per primary team and ID.
--- NOTE | 2020-01-30 11:22 | PN ---
Progress Note (short form) - Note Progress Note: no walking yet legs heavy with edema abdominal pannnus? alert Vital Signs Period Temp Pulse Resp BP Sys/Patel Pulse Ox Last 24 Hr 97.8 F-98.5 F 92-102 18-20 99-118/43-69 100-100 cor-rrr llungs clear abd soft,+edema of the right side of the abdomen ext +edema CBC, BMP 01/29/20 07:40 01/29/20 06:00 Microbiology 01/24/20 10:45 Blood - Peripheral Venous Blood Culture - Final NO GROWTH AFTER 5 DAYS INCUBATION 01/24/20 05:30 Blood - Peripheral Venous Blood Culture - Final NO GROWTH AFTER 5 DAYS INCUBATION 01/25/20 18:05 Abdomen Gram Stain - Final 01/25/20 18:05 Abdomen Body Fluid Culture - Final NO GROWTH OF AEROBIC ORGANISMS AFTER 48 HOURS I NCUBATION 01/25/20 18:05 Abdomen Anaerobic Culture - Final NO ANAEROBES WERE ISOLATED 01/25/20 18:05 Abdomen PENNY Preparation - Preliminary 01/25/20 18:05 Abdomen Fungal Culture - Preliminary 01/25/20 18:05 Abdomen AFB Smear Concentration - Preliminary 01/25/20 18:05 Abdomen Mycobacterial Culture - Preliminary 01/22/20 10:45 Blood - Peripheral Venous Blood Culture - Final Streptococcus Mitis 01/22/20 10:45 Blood - Peripheral Venous Blood Culture - Final Streptococcus Mitis 01/22/20 10:45 Urine - Urine Flores Urine Culture - Final NO GROWTH OBTAINED a/p sepsis bacteremia-strep sanguis-continue rocephin liver cirrhosis ckd ascites volume overload started on diuretics ascities fluid cell count not c/w SBP echo no vegetations repeat blood cultures negative will need four weeks of rocephin for strep bacteremia-d/w patient
--- NOTE | 2020-01-30 12:26 | PN ---
Progress Note, Physician Chief Complaint: Septic Shock due to Alpha Hemolytic Streptococcus Cirrhosis : Etiology to be determined CHF HTN Venous Insufficiency Hepatic Encephalopathy Bacteremia History of Present Illness: NAD Abd softer BLLE edema improved U/S abd small amt of ascitis RUQ Paracentesis pathology negative for malignancy - Current Medication List Current Medications: Active Medications Acetaminophen (Tylenol -) 1,000 mg PO Q6H PRN PRN Reason: FEVER Last Admin: 01/26/20 14:31 Dose: 1,000 mg Documented by: Albuterol/Ipratropium (Duoneb -) 1 amp NEB RQID [facility] Last Admin: 01/30/20 11:59 Dose: 1 amp Documented by: Amino Acids (Prosource No Carb Liquid Pkt) 30 ml PO BID@0800,1730 [facility] Last Admin: 01/30/20 08:55 Dose: 30 ml Documented by: Furosemide (Lasix -) 40 mg PO BIDLASIX [facility] Last Admin: 01/30/20 05:33 Dose: 40 mg Documented by: Ceftriaxone Sodium 2 gm/ (Dextrose) 100 mls @ 100 mls/hr IVPB DAILY [facility]; Protocol Last Admin: 01/30/20 10:17 Dose: 100 mls/hr Documented by: Lactulose (Cephulac (Oral Use)) 10 gm PO TID [facility] Last Admin: 01/30/20 05:46 Dose: Not Given Documented by: Nystatin (Mycostatin Cream -) 1 applic TP Q6HPO [facility] Last Admin: 01/30/20 06:09 Dose: 1 applic Documented by: Rifaximin (Xifaxan -) 550 mg PO BID [facility] Last Admin: 01/30/20 10:17 Dose: 550 mg Documented by: Spironolactone (Aldactone -) 100 mg PO DAILY [facility] Last Admin: 01/30/20 10:17 Dose: 100 mg Documented by: - Objective Vital Signs: Vital Signs Temperature 98.5 F 01/30/20 05:00 Pulse Rate 92 H 01/30/20 05:00 Respiratory Rate 18 01/30/20 05:00 Blood Pressure 105/49 L 01/30/20 05:00 O2 Sat by Pulse Oximetry (%) 100 01/29/20 21:00 Constitutional: Yes: Well Nourished, No Distress, Calm, Obese Cardiovascular: Yes: Regular Rate and Rhythm Respiratory: Yes: Regular, CTA Bilaterally Gastrointestinal: Yes: Normal Bowel Sounds, Soft, Abdomen, Obese, Ascites Genitourinary: Yes: Incontinence Musculoskeletal: Yes: Muscle Weakness Extremities: Yes: WNL Edema: Yes Edema: LLE: 1+, RLE: 1+ Peripheral Pulses WNL: Yes Neurological: Yes: Alert, Oriented Psychiatric: Yes: Alert, Oriented Labs: CBC, BMP 01/29/20 07:40 01/29/20 06:00 INR, PTT INR 1.49 (0.83-1.09) H 01/25/20 05:30 Problem List - Problems (1) Bacteremia Assessment/Plan: -Cultures: Microbiology 01/24/20 05:30 Blood - Peripheral Venous Blood Culture - Preliminary NO GROWTH OBTAINED AFTER 48 HOURS, INCUBATION TO CONTINUE FOR 3 DAYS. 01/22/20 10:45 Blood - Peripheral Venous Blood Culture - Final Streptococcus Mitis 01/22/20 10:45 Blood - Peripheral Venous Blood Culture - Final Streptococcus Mitis 01/24/20 10:45 Blood - Peripheral Venous Blood Culture - Preliminary NO GROWTH OBTAINED AFTER 24 HOURS, INCUBATION TO CONTINUE FOR 4 DAYS. 01/22/20 10:45 Urine - Urine Flores Urine Culture - Final NO GROWTH OBTAINED -ID on board -IV Rocephin- needs 4 weeks -Repeat BC so far negative -Paracentesis pathology reviewed-negative for malignancy Problems reviewed: Yes Code(s): R78.81 - BACTEREMIA (2) Abdominal pain Assessment/Plan: -CTAP: showed large ascitis -S/P paracentesis -Abd pain improved -U/S abd small ascitis RUQ Problems reviewed: Yes Code(s): R10.9 - UNSPECIFIED ABDOMINAL PAIN (3) Altered mental status Problems reviewed: Yes Code(s): R41.82 - ALTERED MENTAL STATUS, UNSPECIFIED Qualifiers: Altered mental status type: disorientation Qualified Code(s): R41.0 - Disorientation, unspecified (4) Anemia Assessment/Plan: -2/2 to chronic disease -B12, Thyroid, iron + folate normal in recent workup -Stool OB negative -GI consult -Monitor trend -Transfuse only if Hg<7.0 to avoid fluid overload Problems reviewed: Yes Code(s): D64.9 - ANEMIA, UNSPECIFIED (5) Ascites Assessment/Plan: -S/P paracentesis -Rifaxamine + Lactulose -GI consult -Furosemide 40 mg po bid -Aldactone 100 mg po daily Problems reviewed: Yes Code(s): R18.8 - OTHER ASCITES Qualifiers: Ascites type: other type Qualified Code(s): R18.8 - Other ascites (6) CHF (congestive heart failure) Problems reviewed: Yes Code(s): I50.9 - HEART FAILURE, UNSPECIFIED (7) Cryptogenic cirrhosis Assessment/Plan: -Lactulose + Rifaximin Problems reviewed: Yes Code(s): K74.69 - OTHER CIRRHOSIS OF LIVER (8) Hepatic encephalopathy Problems reviewed: Yes Code(s): K72.90 - HEPATIC FAILURE, UNSPECIFIED WITHOUT COMA (9) Toxic metabolic encephalopathy Problems reviewed: Yes Code(s): G92 - TOXIC ENCEPHALOPATHY (10) Thrombocytopenia Assessment/Plan: 2/ to chronic liver disease -Monitor Plts Code(s): D69.6 - THROMBOCYTOPENIA, UNSPECIFIED (11) Hypotension Assessment/Plan: -D/C IVF -Hold toprol -Continue furosemide + spironolactone -Cardiology consult -monitor vitals Problems reviewed: Yes Code(s): I95.9 - HYPOTENSION, UNSPECIFIED (12) Hepatorenal syndrome Assessment/Plan: -Nephrology consult -Monitor Cr Problems reviewed: Yes Code(s): K76.7 - HEPATORENAL SYNDROME Assessment/Plan See problem list Spoke to son Jefferson, plan is for d/c home on Pt has [employer] 8hrs/day Will need tunnel cath for rocephin 2 gm daily for 4 weeks.
--- NOTE | 2020-01-30 13:18 | PN ---
Progress Note, Physician History of Present Illness: Pt seen and examined at bedside. She is awake and alert. She denies shortness of breath. She feels that her edema is improving. - Current Medication List Current Medications: Active Medications Acetaminophen (Tylenol -) 1,000 mg PO Q6H PRN PRN Reason: FEVER Last Admin: 01/26/20 14:31 Dose: 1,000 mg Documented by: Albuterol/Ipratropium (Duoneb -) 1 amp NEB RQID [facility] Last Admin: 01/30/20 11:59 Dose: 1 amp Documented by: Amino Acids (Prosource No Carb Liquid Pkt) 30 ml PO BID@0800,1730 [facility] Last Admin: 01/30/20 08:55 Dose: 30 ml Documented by: Furosemide (Lasix -) 40 mg PO BIDLASIX [facility] Last Admin: 01/30/20 05:33 Dose: 40 mg Documented by: Ceftriaxone Sodium 2 gm/ (Dextrose) 100 mls @ 100 mls/hr IVPB DAILY [facility]; Protocol Last Admin: 01/30/20 10:17 Dose: 100 mls/hr Documented by: Lactulose (Cephulac (Oral Use)) 10 gm PO TID [facility] Last Admin: 01/30/20 05:46 Dose: Not Given Documented by: Nystatin (Mycostatin Cream -) 1 applic TP Q6HPO [facility] Last Admin: 01/30/20 06:09 Dose: 1 applic Documented by: Rifaximin (Xifaxan -) 550 mg PO BID [facility] Last Admin: 01/30/20 10:17 Dose: 550 mg Documented by: Spironolactone (Aldactone -) 100 mg PO DAILY [facility] Last Admin: 01/30/20 10:17 Dose: 100 mg Documented by: - Objective Vital Signs: Vital Signs Temperature 98.5 F 01/30/20 05:00 Pulse Rate 92 H 01/30/20 05:00 Respiratory Rate 18 01/30/20 05:00 Blood Pressure 105/49 L 01/30/20 05:00 O2 Sat by Pulse Oximetry (%) 100 01/29/20 21:00 Constitutional: Yes: Calm Eyes: Yes: Conjunctiva Clear HENT: Yes: Atraumatic Neck: Yes: Supple Cardiovascular: Yes: S1, S2 Respiratory: Yes: CTA Bilaterally Gastrointestinal: Yes: Soft, Abdomen, Obese, Ascites Genitourinary: Yes: WNL Musculoskeletal: Yes: WNL Edema: Yes Edema: LLE: 2+, RLE: 2+ Neurological: Yes: Oriented Psychiatric: Yes: Oriented Labs: CBC, BMP 01/29/20 07:40 01/29/20 06:00 INR, PTT INR 1.49 (0.83-1.09) H 01/25/20 05:30 Assessment/Plan Current Medications Generic Name Dose Route Start Last Admin Trade Name Freq PRN Reason Stop Dose Admin Acetaminophen 1,000 mg 01/25/20 21:56 01/26/20 14:31 Tylenol - PO 1,000 mg Q6H PRN Administration FEVER Albuterol/Ipratropium 1 amp 01/27/20 12:00 01/30/20 11:59 Duoneb - NEB 1 amp RQID [facility] Administration Amino Acids 30 ml 01/29/20 17:30 01/30/20 08:55 Prosource No Carb Liquid Pkt PO 30 ml BID@0800,1730 [facility] Administration Furosemide 40 mg 01/29/20 14:15 01/30/20 05:33 Lasix - PO 40 mg BIDLASIX [facility] Administration Ceftriaxone Sodium 2 gm/ 100 mls @ 100 mls/hr 01/25/20 13:30 01/30/20 10:17 Dextrose IVPB 100 mls/hr DAILY [facility] Administration Protocol Lactulose 10 gm 01/25/20 22:00 01/30/20 05:46 Cephulac (Oral Use) PO Not Given TID [facility] Nystatin 1 applic 01/26/20 00:00 01/30/20 06:09 Mycostatin Cream - TP 1 applic Q6HPO [facility] Administration Rifaximin 550 mg 01/25/20 22:00 01/30/20 10:17 Xifaxan - PO 550 mg BID [facility] Administration Spironolactone 100 mg 01/27/20 10:00 01/30/20 10:17 Aldactone - PO 100 mg DAILY [facility] Administration Impression 1. BLAINE 2. ascites 3. liver cirrhosis 4. volume overload 5. microscopic hematuria 6. sepsis Plan - con lasix - cont aldactone - monitor volume status - discussed diet at length - discussed with GI and medical team - will need outpt follow up
--- NOTE | 2020-01-30 13:32 | PN ---
Progress Note (short form) - Note Progress Note: Denies shortness of breath, cough. No fevers recorded. No acute events overnight. Intake & Output 01/27/20 01/28/20 01/29/20 01/30/20 23:59 23:59 23:59 23:59 Intake Total 1170 1000 640 460 Output Total 250 1400 Balance 1170 750 -760 460 Weight 261 lb 6 oz 259 lb 256 lb 6 oz 248 lb 4.8 oz Last Vital Signs Temp Pulse Resp BP Pulse Ox 98.5 F 92 H 18 105/49 L 100 01/30/20 05:00 01/30/20 05:00 01/30/20 05:00 01/30/20 05:00 01/29/20 21:00 Active Medications Acetaminophen (Tylenol -) 1,000 mg PO Q6H PRN PRN Reason: FEVER Last Admin: 01/26/20 14:31 Dose: 1,000 mg Documented by: Albuterol/Ipratropium (Duoneb -) 1 amp NEB RQID [facility] Last Admin: 01/30/20 11:59 Dose: 1 amp Documented by: Amino Acids (Prosource No Carb Liquid Pkt) 30 ml PO BID@0800,1730 [facility] Last Admin: 01/30/20 08:55 Dose: 30 ml Documented by: Furosemide (Lasix -) 40 mg PO BIDLASIX [facility] Last Admin: 01/30/20 05:33 Dose: 40 mg Documented by: Ceftriaxone Sodium 2 gm/ (Dextrose) 100 mls @ 100 mls/hr IVPB DAILY [facility]; Protocol Last Admin: 01/30/20 10:17 Dose: 100 mls/hr Documented by: Lactulose (Cephulac (Oral Use)) 10 gm PO TID [facility] Last Admin: 01/30/20 05:46 Dose: Not Given Documented by: Nystatin (Mycostatin Cream -) 1 applic TP Q6HPO [facility] Last Admin: 01/30/20 06:09 Dose: 1 applic Documented by: Rifaximin (Xifaxan -) 550 mg PO BID [facility] Last Admin: 01/30/20 10:17 Dose: 550 mg Documented by: Spironolactone (Aldactone -) 100 mg PO DAILY [facility] Last Admin: 01/30/20 10:17 Dose: 100 mg Documented by: Gen: NAD Heart: RRR Lung: decreased breath sounds at the bases Abd: distended, +ascites Ext: + edema Laboratory Results - last 24 hr 01/25/20 18:05 Fluid Cholesterol 17 A/P Strep Bacteremia Septic Shock resolving Liver Cirrhosis Ascites LV Diastolic Dysfunction HTN Hyperlipidemia Anemia Thrombocytopenia - continue antibiotics per ID - O2 to keep SpO2 >90% - continue lasix, aldactone - DVT prophylaxis Dr Bauman
--- NOTE | 2020-01-30 16:54 | PN.GI ---
GI Progress Note Subjective: GI NOte: Has no GI complaints. Weight is down form 261 to 248 without uremia. Discussed the need to avoid salt and to follow up at a [facility]. She has opted for [facility]. - Objective Vital Signs: Vital Signs Temperature 98.2 F 01/30/20 15:02 Pulse Rate 90 01/30/20 15:02 Respiratory Rate 19 01/30/20 15:02 Blood Pressure 107/49 L 01/30/20 15:02 O2 Sat by Pulse Oximetry (%) 100 01/30/20 09:00 Laboratory Tests 07/19/17 07/21/17 09/06/18 17:00 05:05 05:30 BUN Creatinine Ferritin Total Bilirubin AST ALT Alkaline Phosphatase Ammonia LIZETH Screen [employer] Intrp COVID-19 (RABIA) Hepatitis A IgM Ab Negative Hep A IgM Ab Confirm Negative Hepatitis A Ab Total Positive H Hep Bs Antigen Negative Hep B Core Total Ab Negative Hep B Core IgM Ab Negative Hepatitis Be Antibody Negative Hepatitis Be Antigen Negative Hep C Ab Diagnostic 0.1 Hepatitis C Ab (EIA) 0.1 09/08/18 09/09/18 01/22/20 06:00 15:04 11:10 BUN Creatinine Ferritin 165.1 Total Bilirubin AST ALT Alkaline Phosphatase Ammonia LIZETH Screen Negative Sm[employer] Intrp 11 COVID-19 (RABIA) Not detected Hepatitis A IgM Ab Hep A IgM Ab Confirm Hepatitis A Ab Total Hep Bs Antigen Hep B Core Total Ab Hep B Core IgM Ab Hepatitis Be Antibody Hepatitis Be Antigen Hep C Ab Diagnostic Hepatitis C Ab (EIA) 01/23/20 01/29/20 05:53 06:00 BUN 11.2 Creatinine 1.3 Ferritin Total Bilirubin 1.5 H AST 46 H ALT 18 Alkaline Phosphatase 105 Ammonia 25.30 LIZETH Screen [employer] Intrp COVID-19 (RABIA) Hepatitis A IgM Ab Hep A IgM Ab Confirm Hepatitis A Ab Total Hep Bs Antigen Hep B Core Total Ab Hep B Core IgM Ab Hepatitis Be Antibody Hepatitis Be Antigen Hep C Ab Diagnostic Hepatitis C Ab (EIA) Constitutional: Calm Gastrointestinal Inspection: Yes: Distention ...Auscultate: Yes: Normoactive Bowel Sounds ...Palpate: Yes: Soft, Other (nontender) Labs: CBC, BMP 01/29/20 07:40 01/29/20 06:00 INR, PTT INR 1.49 (0.83-1.09) H 01/25/20 05:30 Assessment/Plan Impression: - Ascites most likely reflects cirrhosis due to KING - Not clear whether or not she is due for a repeat colonoscopy. I have advised her to ask Dr Lieberman. Plan: - Accomplishing diuresis on the current diuretic regimen with stable renal function. - Encouraged to followup at the [facility] or at our office - No GI objections to discharge. 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
[2020-01-31] MEDS: NYSTATIN 100,000 UNIT/GM TOPICAL CREAM 15 GM TUBE TP SCH ×4 (00:30→17:22)
[2020-01-31] MEDS: LACTULOSE 20 GM/30 ML UDC (FOR ORAL USE ONLY) PO SCH ×3 (05:35→23:12)
[2020-01-31] MEDS: FUROSEMIDE 40 MG TABLET (FP) PO SCH ×2 (05:36→14:19)
[2020-01-31] MEDS: ALBUTEROL SO4 2.5/IPRATROPIUM 0.5 INH SOL 3 ML VIAL.NEB. NEB SCH ×4 (07:40→20:23)
[2020-01-31 07:54] LABS: BASO % 0.6 % (0-2.0); EOS % 7.4 % (0-4.5); HEMATOCRIT 22.3 % (32.4-45.2); HEMOGLOBIN 7.2 GM/dL (10.7-15.3); MCHC 32.4 g/dl (32.0-36.0); MEAN CELL VOLUME 89.7 fl (80-96); MEAN PLT VOLUME 9.9 fl (7.5-11.1); MONO % 10.9 % (3.8-10.2); NEUT % 65.1 % (42.8-82.8); PLATELET COUNT 56 K/MM3 (134-434); RBC 2.49 M/mm3 (3.60-5.2); RDW 18.1 % (11.6-15.6); WHITE BLOOD COUNT 5.7 K/mm3 (4.0-10.0)
[2020-01-31 08:11] LABS: ALBUMIN 1.7 g/dl (3.4-5.0); BILIRUBIN,TOTAL 1.2 mg/dL (0.2-1); BLOOD UREA NITROGEN 11.9 mg/dL (7-18); CALCIUM 8.2 mg/dL (8.5-10.1); CREATININE 1.2 mg/dL (0.55-1.3); POTASSIUM 3.9 mmol/L (3.5-5.1); TOT PROT 5.6 g/dl (6.4-8.2)
[2020-01-31] MEDS ORDERED: DEXTROSE 5%-WATER 100 ML IVPB ONE (09:02)
[2020-01-31] MEDS: AMINO ACIDS/PROTEIN HYDROLYS 30 ML LIQUID.PKT PO SCH ×2 (09:22→16:58)
[2020-01-31] MEDS: RIFAXIMIN 550 MG TABLET (UD) PO SCH ×2 (09:23→23:12)
[2020-01-31] MEDS: CEFTRIAXONE 2 GM in DEXTROSE 5%-WATER 100 ML IVPB SCH (09:23)
[2020-01-31] MEDS: SPIRONOLACTONE 25 MG TABLET PO SCH (10:40)
--- NOTE | 2020-01-31 11:23 | DS ---
Physical Examination Vital Signs: Vital Signs Temperature 98.8 F 01/31/20 08:51 Pulse Rate 91 H 01/31/20 08:51 Respiratory Rate 18 01/31/20 08:52 Blood Pressure 111/52 L 01/31/20 08:51 O2 Sat by Pulse Oximetry (%) 97 01/31/20 08:52 Findings/Remarks: Maya Rodgers is a 74 y/o female with reported PMH significant for cryptogenic cirrhosis, HFpEF, HTN, HLD, venous insufficiency, hepatic encephalopathy, BIBEMS today. She lives with her son at home and today reported lower back pain that started yesterday. Per EMS, the home was very warm when they arrived and she had several blankets on and was shivering and had lower extremity swelling. O2 sats in the field were mid 80s. Pt's son also reporting that pt is more lethargic than prior over the past couple of days. Pt complaining of low back pain. Denies any other pain. Denies chest pain/shortness of breath. Denies headache/dizziness. Denies nausea/vomiting. Denies lower extremity pain. Pt is A&Ox3. Labs: CBC, BMP 01/31/20 05:52 01/31/20 05:52 Discharge Summary Problems reviewed: Yes Reason For Visit: SEPSIS,HYPOTENSION Current Active Problems Bacteremia (Acute) Hepatorenal syndrome (Acute) Hypotension (Acute) Severe sepsis (Acute) Condition: Stable - Instructions Diet, Activity, Other Instructions: -Rocephin 2 gm IVPB daily for 4 weeks Referrals: Melba Pagan [Non Staff, Medical] - Gatito Lieberman MD, MD [Staff Physician] - Travis Ramesh MD [Staff Physician] - Disposition: VNS/HOME HEALTH CARE - Home Medications Comprehensive Discharge Medication List: Ambulatory Orders Acetaminophen [Mapap] 1 - 2 mg PO Q6H PRN #240 tablet 01/31/20 Acetaminophen [Tylenol .Extra-Strength -] 1,000 mg PO Q6H PRN #240 tablet 01/31/20 Amino Acids/Protein Hydrolys [Prosource No Carb Liquid Pkt] 30 ml PO BID #1800 ml 01/31/20 Amino Acids/Protein Hydrolys [Prosource No Carb Liquid Pkt] 30 ml PO BID@080 0,1730 #1 bottle 01/31/20 Ceftriaxone [Rocephin -] 2 gm IVPB DAILY vial 01/31/20 Furosemide [Lasix -] 40 mg PO BID #60 tablet 01/31/20 Furosemide [Lasix -] 40 mg PO BIDLASIX #60 tablet 01/31/20 Lactulose 10 gm PO TID #1350 ml 01/31/20 Lactulose 10 gm PO TID #1350 ml 01/31/20 Rifaximin [Xifaxan -] 550 mg PO BID #60 tablet 01/31/20 Rifaximin [Xifaxan] 550 mg PO BID #60 tablet 01/31/20 Spironolactone 100 mg PO DAILY #30 tablet 01/31/20 Spironolactone [Aldactone -] 100 mg PO DAILY #30 tablet 01/31/20
--- NOTE | 2020-01-31 12:50 | PN ---
Progress Note (short form) - Note Progress Note: Denies shortness of breath, cough. No fevers recorded. No acute events overnight. Intake & Output 01/28/20 01/29/20 01/30/20 01/31/20 23:59 23:59 23:59 23:59 Intake Total 8200 174 0355 340 Output Total 250 1400 600 Balance 750 -760 800 340 Weight 259 lb 256 lb 6 oz 248 lb 4.8 oz 252 lb Last Vital Signs Temp Pulse Resp BP Pulse Ox 98.8 F 91 H 18 111/52 L 97 01/31/20 08:51 01/31/20 08:51 01/31/20 08:52 01/31/20 08:51 01/31/20 08:52 Active Medications Acetaminophen (Tylenol -) 1,000 mg PO Q6H PRN PRN Reason: FEVER Last Admin: 01/26/20 14:31 Dose: 1,000 mg Documented by: Albuterol/Ipratropium (Duoneb -) 1 amp NEB RQID [facility] Last Admin: 01/31/20 07:40 Dose: 1 amp Documented by: Amino Acids (Prosource No Carb Liquid Pkt) 30 ml PO BID@0800,1730 [facility] Last Admin: 01/31/20 09:22 Dose: 30 ml Documented by: Furosemide (Lasix -) 40 mg PO BIDLASIX [facility] Last Admin: 01/31/20 05:36 Dose: 40 mg Documented by: Ceftriaxone Sodium 2 gm/ (Dextrose) 100 mls @ 100 mls/hr IVPB DAILY [facility]; Protocol Last Admin: 01/31/20 09:23 Dose: 100 mls/hr Documented by: Lactulose (Cephulac (Oral Use)) 10 gm PO TID [facility] Last Admin: 01/31/20 05:35 Dose: 10 gm Documented by: Nystatin (Mycostatin Cream -) 1 applic TP Q6HPO [facility] Last Admin: 01/31/20 11:29 Dose: 1 applic Documented by: Rifaximin (Xifaxan -) 550 mg PO BID [facility] Last Admin: 01/31/20 09:23 Dose: 550 mg Documented by: Spironolactone (Aldactone -) 100 mg PO DAILY [facility] Last Admin: 01/31/20 10:40 Dose: 100 mg Documented by: Gen: NAD Heart: RRR Lung: decreased breath sounds at the bases Abd: distended, +ascites Ext: + edema Laboratory Results - last 24 hr 01/31/20 01/31/20 05:52 05:52 WBC 5.7 RBC 2.49 L Hgb 7.2 L Hct 22.3 L MCV 89.7 MCH 29.0 MCHC 32.4 RDW 18.1 H Plt Count 56 L MPV 9.9 Absolute Neuts (auto) 3.7 Neutrophils % 65.1 Lymphocytes % 16.0 Monocytes % 10.9 H Eosinophils % 7.4 H Basophils % 0.6 Nucleated RBC % 0 Sodium 140 Potassium 3.9 Chloride 107 Carbon Dioxide 30 Anion Gap 2 L BUN 11.9 Creatinine 1.2 Est GFR (CKD-EPI)AfAm 50.84 Est GFR (CKD-EPI)NonAf 43.86 Random Glucose 86 Calcium 8.2 L Total Bilirubin 1.2 H AST 35 ALT 13 Alkaline Phosphatase 94 Total Protein 5.6 L Albumin 1.7 L A/P Strep Bacteremia Septic Shock resolved Liver Cirrhosis Ascites LV Diastolic Dysfunction HTN Hyperlipidemia Anemia Thrombocytopenia - ABX per ID - Lasix, aldactone - DC planning Dr Bauman
--- NOTE | 2020-01-31 14:31 | PN ---
Progress Note, Physician Chief Complaint: The patient appears comfortable. No SOB at rest. chest pain or palpitation. History of Present Illness: 74 year-old woman with a PMHx of HTN, HLD, chronic diastolic CHF, cirrhosis, ascites, venous insufficiency, and h/o portal vein thrombosis in past admitted 01/22/20 with lower back pain, chills, and LE edema. Was treated for sepsis in ICU, required pressor support earlier in admission. Developed low BP while on furosemide and spironolactone. The patient has edema, anasarca with shortness of breath. No chest pain, or palpitations. No fevers EKG sinus with no ischemic changes Echocardiogram 01/23/20: Normal LV size, wall motion and systolic function. LVEF 62%. Abnormal diastolic relaxation. Normal RV. Moderate to severe LA dilatation. No significant valve disease. PASP 28 mmHg +Blood culture 01/22/20 strep sanguis CXR: No effusions or consolidations CT scan with ascites LA 3.8 The patient has been seen and followed by ID, Renal, GI and Heme. - Current Medication List Current Medications: Active Medications Acetaminophen (Tylenol -) 1,000 mg PO Q6H PRN PRN Reason: FEVER Last Admin: 01/26/20 14:31 Dose: 1,000 mg Documented by: Albuterol/Ipratropium (Duoneb -) 1 amp NEB RQID [facility] Last Admin: 01/31/20 13:31 Dose: 1 amp Documented by: Amino Acids (Prosource No Carb Liquid Pkt) 30 ml PO BID@0800,1730 [facility] Last Admin: 01/31/20 09:22 Dose: 30 ml Documented by: Furosemide (Lasix -) 40 mg PO BIDLASIX [facility] Last Admin: 01/31/20 14:19 Dose: 40 mg Documented by: Ceftriaxone Sodium 2 gm/ (Dextrose) 100 mls @ 100 mls/hr IVPB DAILY [facility]; Protocol Last Admin: 01/31/20 09:23 Dose: 100 mls/hr Documented by: Lactulose (Cephulac (Oral Use)) 10 gm PO TID [facility] Last Admin: 01/31/20 14:19 Dose: Not Given Documented by: Nystatin (Mycostatin Cream -) 1 applic TP Q6HPO [facility] Last Admin: 01/31/20 11:29 Dose: 1 applic Documented by: Rifaximin (Xifaxan -) 550 mg PO BID [facility] Last Admin: 01/31/20 09:23 Dose: 550 mg Documented by: Spironolactone (Aldactone -) 100 mg PO DAILY [facility] Last Admin: 01/31/20 10:40 Dose: 100 mg Documented by: - Objective Vital Signs: Vital Signs Temperature 98.8 F 01/31/20 08:51 Pulse Rate 91 H 01/31/20 08:51 Respiratory Rate 18 01/31/20 08:52 Blood Pressure 111/52 L 01/31/20 08:51 O2 Sat by Pulse Oximetry (%) 97 01/31/20 08:52 General: Well developed. Obese and chronic ill. No acute distress. Head: Normocephalic. Atraumatic, Eyes: PERRLA, EOMI. Sclerae anicteric. Pale. Neck: Supple. No JVD. No bruits. Heart: Normal S1, S2: Regular rhythm and rate. No murmur. No gallop or rub. Lungs: Symmetrical air entry. Clear to auscultation. No crackle. No wheezing or rhonchi. Abdomen: Distended. Ascites. Soft. Bowel sound positive. Non tender. No masses. Extremities: 1-2+ edema and dependent edema, anasarca. No clubbing or cyanosis. PD 2+, equal bilaterally. Neuro: Intact, no focal findings. AAO X3 Labs: CBC, BMP 01/31/20 05:52 01/31/20 05:52 INR, PTT INR 1.49 (0.83-1.09) H 01/25/20 05:30 Assessment/Plan 74 year-old woman with a PMHx of HTN, HLD, chronic diastolic CHF, cirrhosis, ascites, venous insufficiency, and h/o portal vein thrombosis in past admitted 01/22/20 with lower back pain, chills, and LE edema. Was treated for sepsis in U, required pressor support earlier in admission. Developed low BP while on furosemide and spironolactone. The patient has edema, anasarca with shortness of breath. No chest pain, or palpitations. No fevers EKG sinus with no ischemic changes Echocardiogram 01/23/20: Normal LV size, wall motion and systolic function. LVEF 62%. Abnormal diastolic relaxation. Normal RV. Moderate to severe LA dilatation. No significant valve disease. PASP 28 mmHg +Blood culture 01/22/20 strep sanguis CXR: No effusions or consolidations CT scan with ascites LA 3.8 The patient has been seen and followed by ID, Renal, GI and Heme. Fluid overload (anasarca) with low normal blood pressure: -Unlikely due to cardiac issues. Fluid overload slowly improving. Echocardiogram with normal LVEF and PASP only 28mmHg. Severe hypoalbuminemia is likely the cause. The patient has some dyspnea with clear lungs today. Continue furosemide to 40 mg BID and try to keep a negative fluid balance. Continue current dose of metoprolol and spironolactone Continue Abx as per primary team and ID. Please do not hesitate to call us for reconsult at any time if any further questions or additional issue arises regarding this patient.
--- NOTE | 2020-01-31 17:32 | PN ---
Progress Note, Physician History of Present Illness: Pt seen and examined at bedside. She is awake and alert. She denies shortness of breath. - Current Medication List Current Medications: Active Medications Acetaminophen (Tylenol -) 1,000 mg PO Q6H PRN PRN Reason: FEVER Last Admin: 01/26/20 14:31 Dose: 1,000 mg Documented by: Albuterol/Ipratropium (Duoneb -) 1 amp NEB RQID [facility] Last Admin: 01/31/20 16:31 Dose: 1 amp Documented by: Amino Acids (Prosource No Carb Liquid Pkt) 30 ml PO BID@0800,1730 [facility] Last Admin: 01/31/20 16:58 Dose: 30 ml Documented by: Furosemide (Lasix -) 40 mg PO BIDLASIX [facility] Last Admin: 01/31/20 14:19 Dose: 40 mg Documented by: Ceftriaxone Sodium 2 gm/ (Dextrose) 100 mls @ 100 mls/hr IVPB DAILY [facility]; Protocol Last Admin: 01/31/20 09:23 Dose: 100 mls/hr Documented by: Lactulose (Cephulac (Oral Use)) 10 gm PO TID [facility] Last Admin: 01/31/20 14:19 Dose: Not Given Documented by: Nystatin (Mycostatin Cream -) 1 applic TP Q6HPO [facility] Last Admin: 01/31/20 17:22 Dose: 1 applic Documented by: Rifaximin (Xifaxan -) 550 mg PO BID [facility] Last Admin: 01/31/20 09:23 Dose: 550 mg Documented by: Spironolactone (Aldactone -) 100 mg PO DAILY [facility] Last Admin: 01/31/20 10:40 Dose: 100 mg Documented by: - Objective Vital Signs: Vital Signs Temperature 98.0 F 01/31/20 14:45 Pulse Rate 89 01/31/20 14:45 Respiratory Rate 20 01/31/20 14:45 Blood Pressure 93/59 L 01/31/20 14:45 O2 Sat by Pulse Oximetry (%) 97 01/31/20 08:52 Constitutional: Yes: Calm Eyes: Yes: Conjunctiva Clear HENT: Yes: Atraumatic Neck: Yes: Supple Cardiovascular: Yes: S1, S2 Respiratory: Yes: CTA Bilaterally Gastrointestinal: Yes: Soft, Abdomen, Obese, Ascites Genitourinary: Yes: WNL Musculoskeletal: Yes: WNL Edema: Yes Edema: LLE: 2+, RLE: 2+ Neurological: Yes: Oriented Labs: CBC, BMP 01/31/20 05:52 01/31/20 05:52 INR, PTT INR 1.49 (0.83-1.09) H 01/25/20 05:30 Assessment/Plan Current Medications Generic Name Dose Route Start Last Admin Trade Name Freq PRN Reason Stop Dose Admin Acetaminophen 1,000 mg 01/25/20 21:56 01/26/20 14:31 Tylenol - PO 1,000 mg Q6H PRN Administration FEVER Albuterol/Ipratropium 1 amp 01/27/20 12:00 01/31/20 16:31 Duoneb - NEB 1 amp RQID TAMMY Administration Amino Acids 30 ml 01/29/20 17:30 01/31/20 16:58 Prosource No Carb Liquid Pkt PO 30 ml BID@0800,1730 TAMMY Administration Furosemide 40 mg 01/29/20 14:15 01/31/20 14:19 Lasix - PO 40 mg BIDLASIX TAMMY Administration Ceftriaxone Sodium 2 gm/ 100 mls @ 100 mls/hr 01/25/20 13:30 01/31/20 09:23 Dextrose IVPB 100 mls/hr DAILY TAMMY Administration Protocol Lactulose 10 gm 01/25/20 22:00 01/31/20 14:19 Cephulac (Oral Use) PO Not Given TID TAMMY Nystatin 1 applic 01/26/20 00:00 01/31/20 17:22 Mycostatin Cream - TP 1 applic Q6HPO TAMMY Administration Rifaximin 550 mg 01/25/20 22:00 01/31/20 09:23 Xifaxan - PO 550 mg BID TAMMY Administration Spironolactone 100 mg 01/27/20 10:00 01/31/20 10:40 Aldactone - PO 100 mg DAILY TAMMY Administration Impression 1. BLAIEN 2. ascites 3. liver cirrhosis 4. volume overload 5. microscopic hematuria 6. sepsis 7. fluid overload Plan - cont with lasix and aldactone - renal function stable - monitor lyte - repeat labs in am
--- NOTE | 2020-01-31 18:11 | PROC ---
Procedure Note Procedure: left TLC removed intact, sutures removed. no bleeding post removal. pt tolerated procedure well. patient for d/c home with upper arm picc for iv antibiotics.
--- NOTE | 2020-01-31 19:48 | HOSP ---
Subjective - Review of Symptoms Events since last encounter: Hospitalist Encounter Notified by the RN that the patient is reporting difficulty breathing and that her HR is 140, was asked to assess. Arrived to bedside, patient is awake, alert and oriented, she reports chest pressure and SOB that started tonight. Plan: Chest Xray portable- stat EKG- stat Labs: CBC, CMP, Mg, Phos, Trop Pulmonary: Yes: Dyspnea Cardiovascular: Yes: Chest Pain Physical Examination Vital Signs: Vital Signs Temperature 98.8 F 01/31/20 19:04 Pulse Rate 102 H 01/31/20 19:04 Respiratory Rate 01/31/20 14:45 Blood Pressure 88/49 L 01/31/20 19:04 O2 Sat by Pulse Oximetry (%) 97 01/31/20 08:52 Constitutional: Yes: Anxious, Moderate Distress, Obese Eyes: Yes: WNL, Conjunctiva Clear, EOM Intact, PERRL HENT: Yes: WNL, Atraumatic, Normocephalic Neck: Yes: WNL, Supple, Trachea Midline Cardiovascular: Yes: Tachycardia, Pulse Irregular, Murmur, S1, S2 Respiratory: Yes: Diminished, On Nasal O2, Rhonchi, SOB Gastrointestinal: Yes: Soft, Abdomen, Obese, Ascites ...Rectal Exam: Yes: Other (Incontinence) Renal/: Yes: Incontinence Edema: Yes (Generalized Anasarca) Edema: LLE: 2+, RLE: 2+ Peripheral Pulses WNL: Yes Neurological: Yes: Alert, Oriented, Cran Nerves II-XII Intact ...Motor Strength: WNL Psychiatric: Yes: WNL, Alert, Oriented Labs: CBC, BMP 01/31/20 05:52 01/31/20 05:52 Laboratory Results - last 24 hr 01/31/20 01/31/20 01/31/20 05:52 05:52 21:30 WBC 5.7 RBC 2.49 L Hgb 7.2 L Hct 22.3 L MCV 89.7 MCH 29.0 MCHC 32.4 RDW 18.1 H Plt Count 56 L MPV 9.9 Absolute Neuts (auto) 3.7 Neutrophils % 65.1 Lymphocytes % 16.0 Monocytes % 10.9 H Eosinophils % 7.4 H Basophils % 0.6 Nucleated RBC % 0 Sodium 140 139 Potassium 3.9 3.7 Chloride 107 106 Carbon Dioxide 30 29 Anion Gap 2 L 5 L BUN 11.9 12.8 Creatinine 1.2 1.3 Est GFR (CKD-EPI)AfAm 50.84 46.15 Est GFR (CKD-EPI)NonAf 43.86 39.82 Random Glucose 86 84 Calcium 8.2 L 8.3 L Magnesium 1.6 L Total Bilirubin 1.2 H 1.4 H AST 35 33 ALT 13 13 Alkaline Phosphatase 94 92 Troponin I 0.03 Total Protein 5.6 L 5.8 L Albumin 1.7 L 1.7 L 01/31/20 21:30 WBC 6.9 RBC 2.70 L Hgb 7.8 L Hct 24.3 L MCV 90.1 MCH 28.7 MCHC 31.9 L RDW 18.6 H Plt Count 66 L MPV 9.4 Absolute Neuts (auto) 5.3 Neutrophils % 76.3 Lymphocytes % 10.0 D Monocytes % 9.2 Eosinophils % 3.9 Basophils % 0.6 Nucleated RBC % 0 Sodium Potassium Chloride Carbon Dioxide Anion Gap BUN Creatinine Est GFR (CKD-EPI)AfAm Est GFR (CKD-EPI)NonAf Random Glucose Calcium Magnesium Total Bilirubin AST ALT Alkaline Phosphatase Troponin I Total Protein Albumin Current Medications Generic Name Dose Route Start Last Admin Trade Name Freq PRN Reason Stop Dose Admin Acetaminophen 1,000 mg 01/25/20 21:56 01/26/20 14:31 Tylenol - PO 1,000 mg Q6H PRN Administration FEVER Albuterol/Ipratropium 1 amp 01/27/20 12:00 01/31/20 20:23 Duoneb - NEB Not Given RQID TAMMY Amino Acids 30 ml 01/29/20 17:30 01/31/20 16:58 Prosource No Carb Liquid Pkt PO 30 ml BID@0800,1730 TAMMY Administration Furosemide 40 mg 01/29/20 14:15 01/31/20 14:19 Lasix - PO 40 mg BIDLASIX TAMMY Administration Ceftriaxone Sodium 2 gm/ 100 mls @ 100 mls/hr 01/25/20 13:30 01/31/20 09:23 Dextrose IVPB 100 mls/hr DAILY TAMMY Administration Protocol Lactulose 10 gm 01/25/20 22:00 01/31/20 23:12 Cephulac (Oral Use) PO Not Given TID TAMMY Metoprolol Succinate 25 mg 01/31/20 22:15 Toprol Xl - PO DAILY TAMMY Nystatin 1 applic 01/26/20 00:00 01/31/20 17:22 Mycostatin Cream - TP 1 applic Q6HPO TAMMY Administration Rifaximin 550 mg 01/25/20 22:00 01/31/20 23:12 Xifaxan - PO 550 mg BID TAMMY Administration Spironolactone 100 mg 01/27/20 10:00 01/31/20 10:40 Aldactone - PO 100 mg DAILY TAMMY Administration Intake & Output 01/29/20 01/30/20 01/31/20 02/01/20 23:59 23:59 23:59 23:59 Intake Total 640 1400 970 Output Total 1400 600 500 Balance -760 800 470 Weight 116.29 kg 112.627 kg 114.305 kg Hospitalist Encounter Assessment: This is a 74 y/o female with a significant medical history of Cryptogenic Cirrhosis, HFpEF, HTN, HLD, Venous Insufficiency, Hepatic Encephalopathy. Admitted to ICU for Severe Sepsis, UTI Patient now on . 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 [place] Afib - Likely secondary to HF - Cardiac Monitoring - EKG showed Afib with RVR 166, non specific ST+ T wave abnormality QT/QTc 278/461 - Lopressor 5mg IV - Cardiology notified, RN received orders- Metoprolol 25mg po - [id number] - Start Eliquis - Monitor platelets closely Critical Care Total Critical Care Time (in minutes): 45 Critical Care Statement: The care of this patient involved high complexity decision making to prevent further life threatening deterioration of the patient's condition and/or to evaluate & treat vital organ system(s) failure or risk of failure.
[2020-01-31] MEDS ORDERED: METOPROLOL TARTRATE 5 MG/5 ML VIAL IVPUSH ONE (20:47)
[2020-01-31] MEDS ORDERED: METOPROLOL TARTRATE 5 MG/5 ML VIAL ONE (20:51)
[2020-01-31 21:36] LABS: BASO % 0.6 % (0-2.0); EOS % 3.9 % (0-4.5); HEMATOCRIT 24.3 % (32.4-45.2); HEMOGLOBIN 7.8 GM/dL (10.7-15.3); MCH 28.7 pg (25.7-33.7); MCHC 31.9 g/dl (32.0-36.0); MEAN CELL VOLUME 90.1 fl (80-96); MEAN PLT VOLUME 9.4 fl (7.5-11.1); MONO % 9.2 % (3.8-10.2); NEUT % 76.3 % (42.8-82.8); PLATELET COUNT 66 K/MM3 (134-434); RDW 18.6 % (11.6-15.6); WHITE BLOOD COUNT 6.9 K/mm3 (4.0-10.0)
[2020-01-31 22:05] LABS: BILIRUBIN,TOTAL 1.4 mg/dL (0.2-1); BLOOD UREA NITROGEN 12.8 mg/dL (7-18); CREATININE 1.3 mg/dL (0.55-1.3); TOT PROT 5.8 g/dl (6.4-8.2)
[2020-01-31 22:06] LABS: ALBUMIN 1.7 g/dl (3.4-5.0); CALCIUM 8.3 mg/dL (8.5-10.1); MAGNESIUM 1.6 mg/dL (1.8-2.4); POTASSIUM 3.7 mmol/L (3.5-5.1)
[2020-01-31] MEDS ORDERED: MAGNESIUM SULF 50% (8.12 MEQ/2 ML-1 GM VIAL) IVPB ONE (22:27)
[2020-01-31] MEDS: metoPROLOL SUCCINATE 25 MG TAB.SR.24H (FP) PO SCH (23:12)
[2020-02-01] MEDS: NYSTATIN 100,000 UNIT/GM TOPICAL CREAM 15 GM TUBE TP SCH ×4 (01:30→17:28)
[2020-02-01] MEDS: metoPROLOL SUCCINATE 25 MG TAB.SR.24H (FP) PO SCH ×2 (01:30→09:37)
[2020-02-01] MEDS: APIXABAN 5 MG TABLET PO SCH ×3 (01:30→21:19)
[2020-02-01] MEDS: LACTULOSE 20 GM/30 ML UDC (FOR ORAL USE ONLY) PO SCH ×4 (05:11→21:21)
[2020-02-01] MEDS: FUROSEMIDE 40 MG TABLET (FP) PO SCH ×2 (05:33→14:23)
[2020-02-01 07:14] LABS: BASO % 0.5 % (0-2.0); EOS % 5.8 % (0-4.5); HEMATOCRIT 24.1 % (32.4-45.2); HEMOGLOBIN 7.8 GM/dL (10.7-15.3); LYMPH % 13.1 % (8-40); MCH 29.1 pg (25.7-33.7); MCHC 32.3 g/dl (32.0-36.0); MEAN CELL VOLUME 90.2 fl (80-96); MEAN PLT VOLUME 9.6 fl (7.5-11.1); MONO % 9.8 % (3.8-10.2); NEUT % 70.8 % (42.8-82.8); PLATELET COUNT 63 K/MM3 (134-434); RBC 2.67 M/mm3 (3.60-5.2); RDW 18.4 % (11.6-15.6); WHITE BLOOD COUNT 8.5 K/mm3 (4.0-10.0)
[2020-02-01 07:41] LABS: ALBUMIN 1.7 g/dl (3.4-5.0); BILIRUBIN,TOTAL 1.3 mg/dL (0.2-1); BLOOD UREA NITROGEN 15.2 mg/dL (7-18); CALCIUM 8.4 mg/dL (8.5-10.1); CREATININE 1.3 mg/dL (0.55-1.3); MAGNESIUM 1.8 mg/dL (1.8-2.4); POTASSIUM 4.5 mmol/L (3.5-5.1); TOT PROT 5.7 g/dl (6.4-8.2)
[2020-02-01] MEDS: ALBUTEROL SO4 2.5/IPRATROPIUM 0.5 INH SOL 3 ML VIAL.NEB. NEB SCH ×4 (08:28→20:29)
[2020-02-01] MEDS ORDERED: DEXTROSE 5%-WATER 100 ML IVPB ONE (09:06)
--- NOTE | 2020-02-01 09:29 | PN ---
Progress Note, Physician History of Present Illness: pulmonary events for last noted,sob and afib with rvr rx with lopressor with improvement,pt currently feeling better,less dyspneic on nasal o2 - Current Medication List Current Medications: Active Medications Acetaminophen (Tylenol -) 1,000 mg PO Q6H PRN PRN Reason: FEVER Last Admin: 01/26/20 14:31 Dose: 1,000 mg Documented by: Albuterol/Ipratropium (Duoneb -) 1 amp NEB RQID [facility] Last Admin: 02/01/20 08:28 Dose: 1 amp Documented by: Amino Acids (Prosource No Carb Liquid Pkt) 30 ml PO BID@0800,1730 [facility] Last Admin: 01/31/20 16:58 Dose: 30 ml Documented by: Apixaban (Eliquis -) 5 mg PO BID [facility] Last Admin: 02/01/20 01:30 Dose: 5 mg Documented by: Furosemide (Lasix -) 40 mg PO BIDLASIX [facility] Last Admin: 02/01/20 05:33 Dose: 40 mg Documented by: Ceftriaxone Sodium 2 gm/ (Dextrose) 100 mls @ 100 mls/hr IVPB DAILY [facility]; Pro tocol Last Admin: 01/31/20 09:23 Dose: 100 mls/hr Documented by: Lactulose (Cephulac (Oral Use)) 10 gm PO TID [facility] Last Admin: 02/01/20 05:11 Dose: Not Given Documented by: Metoprolol Succinate (Toprol Xl -) 25 mg PO DAILY [facility] Last Admin: 02/01/20 01:30 Dose: Not Given Documented by: Nystatin (Mycostatin Cream -) 1 applic TP Q6HPO [facility] Last Admin: 02/01/20 05:11 Dose: Not Given Documented by: Rifaximin (Xifaxan -) 550 mg PO BID [facility] Last Admin: 01/31/20 23:12 Dose: 550 mg Documented by: Spironolactone (Aldactone -) 100 mg PO DAILY [facility] Last Admin: 01/31/20 10:40 Dose: 100 mg Documented by: - Objective Vital Signs: Vital Signs Temperature 98.3 F 02/01/20 05:00 Pulse Rate 86 02/01/20 05:00 Respiratory Rate 20 02/01/20 05:00 Blood Pressure 92/50 L 02/01/20 05:00 O2 Sat by Pulse Oximetry (%) 98 01/31/20 21:00 Constitutional: Yes: Calm, Obese Eyes: Yes: WNL HENT: Yes: WNL Neck: Yes: WNL Cardiovascular: Yes: Pulse Irregular, S1, S2 Respiratory: Yes: Rales (few bibasilar crackles) Gastrointestinal: Yes: Normal Bowel Sounds, Soft Extremities: Yes: WNL Edema: Yes Labs: CBC, BMP 02/01/20 06:05 02/01/20 06:05 INR, PTT INR 1.49 (0.83-1.09) H 01/25/20 05:30 Problem List - Problems (1) Anemia Code(s): D64.9 - ANEMIA, UNSPECIFIED (2) CHF (congestive heart failure) Code(s): I50.9 - HEART FAILURE, UNSPECIFIED (3) Cor pulmonale Code(s): I27.81 - COR PULMONALE (CHRONIC) (4) HTN (hypertension) Code(s): I10 - ESSENTIAL (PRIMARY) HYPERTENSION (5) SOB (shortness of breath) Code(s): R06.02 - SHORTNESS OF BREATH Assessment/Plan A/P Strep Bacteremia Septic Shock resolved Liver Cirrhosis Ascites LV Diastolic Dysfunction HTN Hyperlipidemia Anemia Thrombocytopenia Afib - ABX per ID - Lasix, aldactone - ac - rate control DR DOLAN
[2020-02-01] MEDS: CEFTRIAXONE 2 GM in DEXTROSE 5%-WATER 100 ML IVPB SCH (09:37)
[2020-02-01] MEDS: AMINO ACIDS/PROTEIN HYDROLYS 30 ML LIQUID.PKT PO SCH ×2 (09:37→16:58)
[2020-02-01] MEDS: SPIRONOLACTONE 25 MG TABLET PO SCH (09:38)
[2020-02-01 10:06] LABS: TRANSGLUTAMINASE IGA < 2 U/mL (0-3); TRANSGLUTAMINASE IGG 5 U/mL (0-5)
--- NOTE | 2020-02-01 10:22 | PN ---
Progress Note, Physician Chief Complaint: Septic Shock due to Alpha Hemolytic Streptococcus Cirrhosis : Etiology to be determined CHF HTN Venous Insufficiency Hepatic Encephalopathy Bacteremia History of Present Illness: NAD Abd softer BLLE edema improved Paracentesis pathology negative for malignancy Discharge held due to NADIA with HR up to 160's Transferred to [facility] Given lopressor inj and started on toprol 25 mg po daily Pt was on Toprol earlier in the admission at 25 mg po daily, which was decreased to 12.5 mg po daily due to hypotension 2/2 to ascitis, hypoalbuminemia and s/p paracentecis. eventually toprol 12.5 mg dosage was also discontinued due to intolerance 2/2 to hypotension - Current Medication List Current Medications: Active Medications Acetaminophen (Tylenol -) 1,000 mg PO Q6H PRN PRN Reason: FEVER Last Admin: 01/26/20 14:31 Dose: 1,000 mg Documented by: Albuterol/Ipratropium (Duoneb -) 1 amp NEB RQID [facility] Last Admin: 02/01/20 08:28 Dose: 1 amp Documented by: Amino Acids (Prosource No Carb Liquid Pkt) 30 ml PO BID@0800,1730 [facility] Last Admin: 02/01/20 09:37 Dose: 30 ml Documented by: Apixaban (Eliquis -) 5 mg PO BID [facility] Last Admin: 02/01/20 09:38 Dose: 5 mg Documented by: Furosemide (Lasix -) 40 mg PO BIDLASIX [facility] Last Admin: 02/01/20 05:33 Dose: 40 mg Documented by: Ceftriaxone Sodium 2 gm/ (Dextrose) 100 mls @ 100 mls/hr IVPB DAILY [facility]; Protocol Last Admin: 02/01/20 09:37 Dose: 100 mls/hr Documented by: Lactulose (Cephulac (Oral Use)) 10 gm PO TID [facility] Last Admin: 02/01/20 05:11 Dose: Not Given Documented by: Metoprolol Succinate (Toprol Xl -) 25 mg PO DAILY [facility] Last Admin: 02/01/20 09:37 Dose: 25 mg Documented by: Nystatin (Mycostatin Cream -) 1 applic TP Q6HPO [facility] Last Admin: 02/01/20 05:11 Dose: Not Given Documented by: Rifaximin (Xifaxan -) 550 mg PO BID [facility] Last Admin: 01/31/20 23:12 Dose: 550 mg Documented by: Spironolactone (Aldactone -) 100 mg PO DAILY [facility] Last Admin: 02/01/20 09:38 Dose: 100 mg Documented by: - Objective Vital Signs: Vital Signs Temperature 98.1 F 02/01/20 09:00 Pulse Rate 92 H 02/01/20 09:00 Respiratory Rate 20 02/01/20 09:00 Blood Pressure 106/59 L 02/01/20 09:00 O2 Sat by Pulse Oximetry (%) 98 02/01/20 09:00 Constitutional: Yes: Well Nourished, No Distress, Calm, Obese Cardiovascular: Yes: Pulse Irregular Respiratory: Yes: Regular Gastrointestinal: Yes: Normal Bowel Sounds, Soft, Abdomen, Obese, Ascites (RLQ) Genitourinary: Yes: Incontinence Musculoskeletal: Yes: Muscle Weakness Extremities: Yes: WNL Edema: Yes Edema: LLE: 2+, RLE: 2+ Peripheral Pulses WNL: Yes Neurological: Yes: Alert, Oriented Psychiatric: Yes: Alert, Oriented Labs: CBC, BMP 02/01/20 06:05 02/01/20 06:05 INR, PTT INR 1.49 (0.83-1.09) H 01/25/20 05:30 Problem List - Problems (1) Bacteremia Assessment/Plan: -Cultures: Microbiology 01/24/20 05:30 Blood - Peripheral Venous Blood Culture - Preliminary NO GROWTH OBTAINED AFTER 48 HOURS, INCUBATION TO CONTINUE FOR 3 DAYS. 01/22/20 10:45 Blood - Peripheral Venous Blood Culture - Final Streptococcus Mitis 01/22/20 10:45 Blood - Peripheral Venous Blood Culture - Final Streptococcus Mitis 01/24/20 10:45 Blood - Peripheral Venous Blood Culture - Preliminary NO GROWTH OBTAINED AFTER 24 HOURS, INCUBATION TO CONTINUE FOR 4 DAYS. 01/22/20 10:45 Urine - Urine Flores Urine Culture - Final NO GROWTH OBTAINED -ID on board -IV Rocephin- needs 4 weeks- [place] was setup -Repeat BC negative -Paracentesis pathology reviewed-negative for malignancy Problems reviewed: Yes Code(s): R78.81 - BACTEREMIA (2) Abdominal pain Assessment/Plan: -CTAP: showed large ascitis -S/P paracentesis -Abd pain improved -Repeat U/S abd small ascitis RUQ Problems reviewed: Yes Code(s): R10.9 - UNSPECIFIED ABDOMINAL PAIN (3) Altered mental status Problems reviewed: Yes Code(s): R41.82 - ALTERED MENTAL STATUS, UNSPECIFIED Qualifiers: Altered mental status type: disorientation Qualified Code(s): R41.0 - Disorientation, unspecified (4) Anemia Assessment/Plan: -2/2 to chronic disease -B12, Thyroid, iron + folate normal in recent workup -Stool OB negative -GI consult -Monitor trend -Transfuse only if Hg<7.0 to avoid fluid overload Problems reviewed: Yes Code(s): D64.9 - ANEMIA, UNSPECIFIED (5) Ascites Assessment/Plan: -S/P paracentesis -Rifaxamine + Lactulose -GI consult -Furosemide 40 mg po bid -Aldactone 100 mg po daily Problems reviewed: Yes Code(s): R18.8 - OTHER ASCITES Qualifiers: Ascites type: other type Qualified Code(s): R18.8 - Other ascites (6) CHF (congestive heart failure) Problems reviewed: Yes Code(s): I50.9 - HEART FAILURE, UNSPECIFIED (7) Cryptogenic cirrhosis Assessment/Plan: -Lactulose + Rifaximin Problems reviewed: Yes Code(s): K74.69 - OTHER CIRRHOSIS OF LIVER (8) Hepatic encephalopathy Problems reviewed: Yes Code(s): K72.90 - HEPATIC FAILURE, UNSPECIFIED WITHOUT COMA (9) Toxic metabolic encephalopathy Problems reviewed: Yes Code(s): G92 - TOXIC ENCEPHALOPATHY (10) Thrombocytopenia Assessment/Plan: 2/2 to chronic liver disease -Monitor Plts Problems reviewed: Yes Code(s): D69.6 - THROMBOCYTOPENIA, UNSPECIFIED (11) Hypotension Assessment/Plan: -D/C IVF -Hold toprol -Continue furosemide + spironolactone -Cardiology consult -monitor vitals Problems reviewed: Yes Code(s): I95.9 - HYPOTENSION, UNSPECIFIED (12) Hepatorenal syndrome Assessment/Plan: -Nephrology consult -Monitor Cr Problems reviewed: Yes Code(s): K76.7 - HEPATORENAL SYNDROME (13) Afib Assessment/Plan: -On ELiquis 5 mg po bid -Started on toprol XL 25 mg po daily- would taper if BP drops -Cardiology to see the pt again Problems reviewed: Yes Code(s): I48.91 - UNSPECIFIED ATRIAL FIBRILLATION Assessment/Plan See problem list
[2020-02-01] MEDS: RIFAXIMIN 550 MG TABLET (UD) PO SCH ×2 (11:22→21:19)
--- NOTE | 2020-02-01 11:29 | EKG ---
Test Reason : Blood Pressure : / mmHG Vent. Rate : 166 BPM Atrial Rate : 150 BPM P-R Int : 000 ms QRS Dur : 070 ms QT Int : 278 ms P-R-T Axes : 000 004 185 degrees QTc Int : 461 ms ATRIAL FIBRILLATION WITH RAPID VENTRICULAR RESPONSE NONSPECIFIC ST AND T WAVE ABNORMALITY ABNORMAL ECG WHEN COMPARED WITH ECG OF 22-JAN-2020 10:39, ATRIAL FIBRILLATION HAS REPLACED SINUS RHYTHM VENT. RATE HAS INCREASED BY [address] NOW DEPRESSED IN ANTEROLATERAL LEADS NONSPECIFIC T WAVE ABNORMALITY NOW EVIDENT IN INFERIOR LEADS T WAVE INVERSION NOW EVIDENT IN LATERAL LEADS Confirmed by ALBAN DRISCOLL MD ([id number]) on 02/01/2020 11:28:54 AM Referred By: LUIS SUTHERLAND Confirmed By:ALBAN DRISCOLL MD
--- NOTE | 2020-02-01 11:34 | PN ---
Progress Note, Physician History of Present Illness: Pt seen and examined at bedside. She is awake and alert. SHe denies shortness of breath. - Current Medication List Current Medications: Active Medications Acetaminophen (Tylenol -) 1,000 mg PO Q6H PRN PRN Reason: FEVER Last Admin: 01/26/20 14:31 Dose: 1,000 mg Documented by: Albuterol/Ipratropium (Duoneb -) 1 amp NEB RQID [facility] Last Admin: 02/01/20 08:28 Dose: 1 amp Documented by: Amino Acids (Prosource No Carb Liquid Pkt) 30 ml PO BID@0800,1730 [facility] Last Admin: 02/01/20 09:37 Dose: 30 ml Documented by: Apixaban (Eliquis -) 5 mg PO BID [facility] Last Admin: 02/01/20 09:38 Dose: 5 mg Documented by: Furosemide (Lasix -) 40 mg PO BIDLASIX [facility] Last Admin: 02/01/20 05:33 Dose: 40 mg Documented by: Ceftriaxone Sodium 2 gm/ (Dextrose) 100 mls @ 100 mls/hr IVPB DAILY [facility]; Protocol Last Admin: 02/01/20 09:37 Dose: 100 mls/hr Documented by: Lactulose (Cephulac (Oral Use)) 10 gm PO TID [facility] Last Admin: 02/01/20 05:11 Dose: Not Given Documented by: Metoprolol Succinate (Toprol Xl -) 25 mg PO DAILY [facility] Last Admin: 02/01/20 09:37 Dose: 25 mg Documented by: Nystatin (Mycostatin Cream -) 1 applic TP Q6HPO [facility] Last Admin: 02/01/20 05:11 Dose: Not Given Documented by: Rifaximin (Xifaxan -) 550 mg PO BID [facility] Last Admin: 01/31/20 23:12 Dose: 550 mg Documented by: Spironolactone (Aldactone -) 100 mg PO DAILY [facility] Last Admin: 02/01/20 09:38 Dose: 100 mg Documented by: - Objective Vital Signs: Vital Signs Temperature 98.1 F 02/01/20 09:00 Pulse Rate 92 H 02/01/20 09:00 Respiratory Rate 20 02/01/20 09:00 Blood Pressure 106/59 L 02/01/20 09:00 O2 Sat by Pulse Oximetry (%) 98 02/01/20 09:00 Constitutional: Yes: Calm Eyes: Yes: Conjunctiva Clear HENT: Yes: Atraumatic Cardiovascular: Yes: S1, S2 Respiratory: Yes: CTA Bilaterally Gastrointestinal: Yes: Soft, Abdomen, Obese, Ascites Genitourinary: Yes: WNL Musculoskeletal: Yes: WNL Edema: Yes Edema: LLE: 2+, RLE: 2+ Neurological: Yes: Oriented Psychiatric: Yes: Oriented Labs: CBC, BMP 02/01/20 06:05 02/01/20 06:05 INR, PTT INR 1.49 (0.83-1.09) H 01/25/20 05:30 Assessment/Plan Current Medications Generic Name Dose Route Start Last Admin Trade Name Freq PRN Reason Stop Dose Admin Acetaminophen 1,000 mg 01/25/20 21:56 01/26/20 14:31 Tylenol - PO 1,000 mg Q6H PRN Administration FEVER Albuterol/Ipratropium 1 amp 01/27/20 12:00 02/01/20 08:28 Duoneb - NEB 1 amp RQID [facility] Administration Amino Acids 30 ml 01/29/20 17:30 02/01/20 09:37 Prosource No Carb Liquid Pkt PO 30 ml BID@0800,1730 [facility] Administration Apixaban 5 mg 02/01/20 01:00 02/01/20 09:38 Eliquis - PO 5 mg BID [facility] Administration Furosemide 40 mg 01/29/20 14:15 02/01/20 05:33 Lasix - PO 40 mg BIDLASIX [facility] Administration Ceftriaxone Sodium 2 gm/ 100 mls @ 100 mls/hr 01/25/20 13:30 02/01/20 09:37 Dextrose IVPB 100 mls/hr DAILY [facility] Administration Protocol Lactulose 10 gm 01/25/20 22:00 02/01/20 05:11 Cephulac (Oral Use) PO Not Given TID [facility] Metoprolol Succinate 25 mg 01/31/20 22:15 02/01/20 09:37 Toprol Xl - PO 25 mg DAILY [facility] Administration Nystatin 1 applic 01/26/20 00:00 02/01/20 05:11 Mycostatin Cream - TP Not Given Q6HPO [facility] Rifaximin 550 mg 01/25/20 22:00 01/31/20 23:12 Xifaxan - PO 550 mg BID [facility] Administration Spironolactone 100 mg 01/27/20 10:00 02/01/20 09:38 Aldactone - PO 100 mg DAILY [facility] Administration Impression 1. BLAINE 2. ascites 3. liver cirrhosis 4. volume overload 5. microscopic hematuria 6. sepsis 7. fluid overload 8. a-fib Plan - renal function stable - cont lasix - cont aldactone - monitor lytes - discussed with medical team - will follow prn
[2020-02-01] MEDS ORDERED: MAGNESIUM OXIDE 400 MG TABLET (FP) PO ONE (12:00)
--- NOTE | 2020-02-01 13:36 | PN ---
Progress Note, Physician Chief Complaint: Events noted. The patient had palpitation, SOB and chest discomfort yesterday evening. ECG showed new atrial fibrillation with rapid VR at 166 BPM. She was transferred to [facility]. No recurrent atrial fibrillation noted since she was on tele. The patient appears comfortable at the time of exam. She reports no SOB at rest, chest pain or recurrent palpitation. History of Present Illness: 74 year-old woman with a PMHx of HTN, HLD, chronic diastolic CHF, cirrhosis, ascites, venous insufficiency, and h/o portal vein thrombosis in past admitted 01/22/20 with lower back pain, chills, and LE edema. Was treated for sepsis in ICU, required pressor support earlier in admission. Developed low BP while on furosemide and spironolactone. Echocardiogram 01/23/20: Normal LV size, wall motion and systolic function. LVEF 62%. Abnormal diastolic relaxation. Normal RV. Moderate to severe LA dilatation. No significant valve disease. PASP 28 mmHg New atrial fibrillation with rapid VR, spontaneously cardioverted to sinus with frequent APCs. - Current Medication List Current Medications: Active Medications Acetaminophen (Tylenol -) 1,000 mg PO Q6H PRN PRN Reason: FEVER Last Admin: 01/26/20 14:31 Dose: 1,000 mg Documented by: Albuterol/Ipratropium (Duoneb -) 1 amp NEB RQID [facility] Last Admin: 02/01/20 12:17 Dose: 1 amp Documented by: Amino Acids (Prosource No Carb Liquid Pkt) 30 ml PO BID@0800,1730 [facility] Last Admin: 02/01/20 09:37 Dose: 30 ml Documented by: Apixaban (Eliquis -) 5 mg PO BID [facility] Last Admin: 02/01/20 09:38 Dose: 5 mg Documented by: Furosemide (Lasix -) 40 mg PO BIDLASIX [facility] Last Admin: 02/01/20 05:33 Dose: 40 mg Documented by: Ceftriaxone Sodium 2 gm/ (Dextrose) 100 mls @ 100 mls/hr IVPB DAILY [facility]; Protocol Last Admin: 02/01/20 09:37 Dose: 100 mls/hr Documented by: Lactulose (Cephulac (Oral Use)) 10 gm PO TID [facility] Last Admin: 02/01/20 05:11 Dose: Not Given Documented by: Metoprolol Succinate (Toprol Xl -) 25 mg PO DAILY [facility] Last Admin: 02/01/20 09:37 Dose: 25 mg Documented by: Nystatin (Mycostatin Cream -) 1 applic TP Q6HPO [facility] Last Admin: 02/01/20 05:11 Dose: Not Given Documented by: Rifaximin (Xifaxan -) 550 mg PO BID [facility] Last Admin: 01/31/20 23:12 Dose: 550 mg Documented by: Spironolactone (Aldactone -) 100 mg PO DAILY [facility] Last Admin: 02/01/20 09:38 Dose: 100 mg Documented by: - Objective Vital Signs: Vital Signs Temperature 98.1 F 02/01/20 09:00 Pulse Rate 92 H 02/01/20 09:00 Respiratory Rate 20 02/01/20 09:00 Blood Pressure 106/59 L 02/01/20 09:00 O2 Sat by Pulse Oximetry (%) 98 02/01/20 09:00 General: Well developed. Obese and chronic ill. No acute distress. Head: Normocephalic. Atraumatic, Eyes: PERRLA, EOMI. Sclerae anicteric. Pale. Neck: Supple. No JVD. No bruits. Heart: Normal S1, S2: Regular rhythm and rate. No murmur. No gallop or rub. Lungs: Symmetrical air entry. Clear to auscultation. No crackle. No wheezing or rhonchi. Abdomen: Distended. Ascites. Soft. Bowel sound positive. Non tender. No masses. Extremities: 1-2+ edema and dependent edema, anasarca. No clubbing or cyanosis. PD 2+, equal bilaterally. Neuro: Intact, no focal findings. AAO X3 Labs: CBC, BMP 02/01/20 06:05 02/01/20 06:05 INR, PTT INR 1.49 (0.83-1.09) H 01/25/20 05:30 Assessment/Plan 74 year-old woman with a PMHx of HTN, HLD, chronic diastolic CHF, cirrhosis, ascites, venous insufficiency, and h/o portal vein thrombosis in past admitted 01/22/20 with lower back pain, chills, and LE edema. Was treated for sepsis in ICU, required pressor support earlier in admission. Developed low BP while on furosemide and spironolactone. Echocardiogram 01/23/20: Normal LV size, wall motion and systolic function. LVEF 62%. Abnormal diastolic relaxation. Normal RV. Moderate to severe LA dilatation. No significant valve disease. PASP 28 mmHg New atrial fibrillation with rapid VR, spontaneously cardioverted to sinus with frequent APCs. 1) New atrial fibrillatin with rapid VR, spontaneously cardioverted to sinus. She remains in sinus with frequent APCs. Continue metoprolol succinate 25 mg daily. Would reduced Eliquis to 2.5 mg twice daily because of her advanced liver disease, thrombocytopenia and CKD. Outpatient cardiac follow up. 2) Fluid overload (anasarca) with low normal blood pressure: -Unlikely due to cardiac issues. Fluid overload slowly improving. Echocardiogram with normal LVEF and PASP only 28mmHg. Severe hypoalbuminemia is likely the cause. The patient has some dyspnea with clear lungs today. Continue furosemide to 40 mg BID and try to keep a negative fluid balance. Continue current dose of metoprolol and spironolactone Continue Abx as per primary team and ID. Please do not hesitate to call us for reconsult at any time if any further questions or additional issue arises regarding this patient.
--- NOTE | 2020-02-01 17:27 | PN.GI ---
GI Progress Note Subjective: GI NOte: Developed NADIA so discharge cancelled. No GI complaints - Objective Vital Signs: Vital Signs Temperature 97.7 F 02/01/20 14:00 Pulse Rate 86 02/01/20 14:00 Respiratory Rate 20 02/01/20 09:00 Blood Pressure 97/67 02/01/20 14:00 O2 Sat by Pulse Oximetry (%) 98 02/01/20 09:00 Constitutional: Calm ...Auscultate: Yes: Normoactive Bowel Sounds ...Palpate: Yes: Soft, Other (nontender) Labs: CBC, BMP 02/01/20 06:05 02/01/20 06:05 INR, PTT INR 1.49 (0.83-1.09) H 01/25/20 05:30 Assessment/Plan Impression: - Ascites due to KING cirrhosis - Not clear whether or not she is due for a repeat colonoscopy. I have advised her to ask Dr Lieberman. Plan: - Accomplishing diuresis on the current diuretic regimen with stable renal f unction. - Encouraged to followup at the [facility] or at our office - No GI objections to discharge when cardiologically stable on current diuretics, lactulose and rifaximin Problem List - Problems (1) Ascites Code(s): R18.8 - OTHER ASCITES Qualifiers: Ascites type: other type Qualified Code(s): R18.8 - Other ascites (2) Cryptogenic cirrhosis Code(s): K74.69 - OTHER CIRRHOSIS OF LIVER (3) HTN (hypertension) Code(s): I10 - ESSENTIAL (PRIMARY) HYPERTENSION
--- NOTE | 2020-02-01 19:01 | PN.HO ---
Progress Note (short form) - Note Progress Note: Feels OK - Objective Vital Signs: Vital Signs Temperature 97.7 F 02/01/20 14:00 Pulse Rate 86 02/01/20 14:00 Respiratory Rate 02/01/20 09:00 Blood Pressure 97/67 02/01/20 14:00 O2 Sat by Pulse Oximetry (%) 98 02/01/20 09:00 Constitutional: Calm ...Auscultate: Yes: Normoactive Bowel Sounds ...Palpate: Yes: Soft, Other (nontender) Labs: CBC, BMP 02/01/20 06:05 02/01/20 06:05 INR, PTT INR 1.49 (0.83-1.09) H 01/25/20 05:30 Assessment/Plan 74 year-old woman with a PMHx of HTN, HLD, chronic diastolic CHF, cirrhosis, ascites, venous insufficiency, and h/o portal vein thrombosis in past admitted 01/22/20 with lower back pain, chills, and LE edema. Was treated for sepsis in ICU, required pressor support earlier in admission. Developed low BP while on furosemide and spironolactone. Echocardiogram 01/23/20: Normal LV size, wall motion and systolic function. LVEF 62%. Abnormal diastolic relaxation. Normal RV. Moderate to severe LA dilatation. No significant valve disease. PASP 28 mmHg New atrial fibrillation with rapid VR, spontaneously cardioverted to sinus with frequent APCs. Pancytopenia. She had been transfused iRBCs and platelets on this admission. Hb improved, but plt slowly tranding lower - still no bleeding at this time and the platelet counts today is 52. B12, Thyroid, iron + folate normal in recent workup. Most likely anemia of chronic disease and renal dysfuniton. She is thogh to be in hepatorenal syndrome now. Unfotunately, the pancytopenia is only a reflection of hepatic and renal dysfunciton and chronic disease. Transfuse RBC or plateles as necessary for symptmatic bleeding or anemai only, and response to transfusion is expected to be suboptimal. on eliquis 2.5 mg bifd per cardio for new onset afib
[2020-02-02] MEDS: LACTULOSE 20 GM/30 ML UDC (FOR ORAL USE ONLY) PO SCH ×3 (05:28→13:00)
[2020-02-02] MEDS: NYSTATIN 100,000 UNIT/GM TOPICAL CREAM 15 GM TUBE TP SCH ×3 (06:05→12:18)
[2020-02-02] MEDS: FUROSEMIDE 40 MG TABLET (FP) PO SCH ×2 (06:05→13:01)
[2020-02-02 06:06] LABS: ALPHA 2 MACROGLOBULINS,QN 110 mg/dL (110-276); ALT(SGPT)P5P 12 IU/L (0-40); CHOLESTEROL TOTAL 83 mg/dL (100-199); GLUCOSE SERUM 85 mg/dL (65-99); HEIGHT 66 in (.); WEIGHT- 252 LBS (.)
--- NOTE | 2020-02-02 07:00 | PN ---
Progress Note, Physician History of Present Illness: PULMONARY ALERT,COMFORTABLE,-SOB,-CP - Current Medication List Current Medications: Active Medications Acetaminophen (Tylenol -) 1,000 mg PO Q6H PRN PRN Reason: FEVER Last Admin: 01/26/20 14:31 Dose: 1,000 mg Documented by: Albuterol/Ipratropium (Duoneb -) 1 amp NEB RQID [facility] Last Admin: 02/01/20 20:29 Dose: 1 amp Documented by: Amino Acids (Prosource No Carb Liquid Pkt) 30 ml PO BID@0800,1730 [facility] Last Admin: 02/01/20 16:58 Dose: 30 ml Documented by: Apixaban (Eliquis -) 5 mg PO BID [facility] Last Admin: 02/01/20 21:19 Dose: 5 mg Documented by: Furosemide (Lasix -) 40 mg PO BIDLASIX [facility] Last Admin: 02/02/20 06:05 Dose: 40 mg Documented by: Ceftriaxone Sodium 2 gm/ (Dextrose) 100 mls @ 100 mls/hr IVPB DAILY [facility]; Protocol Last Admin: 02/01/20 09:37 Dose: 100 mls/hr Documented by: Lactulose (Cephulac (Oral Use)) 10 gm PO TID [facility] Last Admin: 02/02/20 05:28 Dose: Not Given Documented by: Metoprolol Succinate (Toprol Xl -) 25 mg PO DAILY [facility] Last Admin: 02/01/20 09:37 Dose: 25 mg Documented by: Nystatin (Mycostatin Cream -) 1 applic TP Q6HPO [facility] Last Admin: 02/02/20 06:05 Dose: 1 applic Documented by: Rifaximin (Xifaxan -) 550 mg PO BID [facility] Last Admin: 02/01/20 21:19 Dose: 550 mg Documented by: Spironolactone (Aldactone -) 100 mg PO DAILY [facility] Last Admin: 02/01/20 09:38 Dose: 100 mg Documented by: - Objective Vital Signs: Vital Signs Temperature 97.6 F 02/02/20 05:00 Pulse Rate 75 02/02/20 06:17 Respiratory Rate 20 02/02/20 06:17 Blood Pressure 100/58 L 02/02/20 06:17 O2 Sat by Pulse Oximetry (%) 98 02/01/20 21:00 Constitutional: Yes: Well Nourished, Calm Eyes: Yes: WNL HENT: Yes: WNL Neck: Yes: WNL Cardiovascular: Yes: Pulse Irregular, S1, S2 Respiratory: Yes: CTA Bilaterally Gastrointestinal: Yes: Normal Bowel Sounds, Soft Extremities: Yes: WNL Edema: Yes Labs: CBC, BMP 02/01/20 06:05 02/01/20 06:05 INR, PTT INR 1.49 (0.83-1.09) H 01/25/20 05:30 Problem List - Problems (1) Anemia Code(s): D64.9 - ANEMIA, UNSPECIFIED (2) CHF (congestive heart failure) Code(s): I50.9 - HEART FAILURE, UNSPECIFIED (3) Cor pulmonale Code(s): I27.81 - COR PULMONALE (CHRONIC) (4) HTN (hypertension) Code(s): I10 - ESSENTIAL (PRIMARY) HYPERTENSION (5) SOB (shortness of breath) Code(s): R06.02 - SHORTNESS OF BREATH Assessment/Plan A/P Strep Bacteremia Septic Shock resolved Liver Cirrhosis Ascites LV Diastolic Dysfunction HTN Hyperlipidemia Anemia Thrombocytopenia Afib - ABX per ID - Lasix, aldactone - ac - rate control DR DOLAN
[2020-02-02] MEDS: AMINO ACIDS/PROTEIN HYDROLYS 30 ML LIQUID.PKT PO SCH (08:15)
[2020-02-02] MEDS: ALBUTEROL SO4 2.5/IPRATROPIUM 0.5 INH SOL 3 ML VIAL.NEB. NEB SCH ×2 (08:22→12:56)
--- NOTE | 2020-02-02 08:46 | PN ---
Progress Note, Physician - Current Medication List Current Medications: Active Medications Acetaminophen (Tylenol -) 1,000 mg PO Q6H PRN PRN Reason: FEVER Last Admin: 01/26/20 14:31 Dose: 1,000 mg Documented by: Albuterol/Ipratropium (Duoneb -) 1 amp NEB RQID [facility] Last Admin: 02/01/20 20:29 Dose: 1 amp Documented by: Amino Acids (Prosource No Carb Liquid Pkt) 30 ml PO BID@0800,1730 [facility] Last Admin: 02/02/20 08:15 Dose: 30 ml Documented by: Apixaban (Eliquis -) 5 mg PO BID [facility] Last Admin: 02/01/20 21:19 Dose: 5 mg Documented by: Furosemide (Lasix -) 40 mg PO BIDLASIX [facility] Last Admin: 02/02/20 06:05 Dose: 40 mg Documented by: Ceftriaxone Sodium 2 gm/ (Dextrose) 100 mls @ 100 mls/hr IVPB DAILY [facility]; Protocol Last Admin: 02/01/20 09:37 Dose: 100 mls/hr Documented by: Lactulose (Cephulac (Oral Use)) 10 gm PO TID [facility] Last Admin: 02/02/20 05:28 Dose: Not Given Documented by: Metoprolol Succinate (Toprol Xl -) 25 mg PO DAILY [facility] Last Admin: 02/01/20 09:37 Dose: 25 mg Documented by: Nystatin (Mycostatin Cream -) 1 applic TP Q6HPO [facility] Last Admin: 02/02/20 06:05 Dose: 1 applic Documented by: Rifaximin (Xifaxan -) 550 mg PO BID [facility] Last Admin: 02/01/20 21:19 Dose: 550 mg Documented by: Spironolactone (Aldactone -) 100 mg PO DAILY [facility] Last Admin: 02/01/20 09:38 Dose: 100 mg Documented by: - Objective Vital Signs: Vital Signs Temperature 97.6 F 02/02/20 05:00 Pulse Rate 75 02/02/20 06:17 Respiratory Rate 20 02/02/20 06:17 Blood Pressure 100/58 L 02/02/20 06:17 O2 Sat by Pulse Oximetry (%) 98 02/01/20 21:00 Labs: CBC, BMP 02/01/20 06:05 02/01/20 06:05 INR, PTT INR 1.49 (0.83-1.09) H 01/25/20 05:30
[2020-02-02] MEDS ORDERED: PT OWN MED DRAWER 7, Y5N ONE ×2 (09:09→09:55)
[2020-02-02] MEDS ORDERED: DEXTROSE 5%-WATER 100 ML IVPB ONE (09:10)
[2020-02-02] MEDS: CEFTRIAXONE 2 GM in DEXTROSE 5%-WATER 100 ML IVPB SCH (09:52)
[2020-02-02] MEDS: APIXABAN 5 MG TABLET PO SCH (09:52)
[2020-02-02] MEDS: SPIRONOLACTONE 25 MG TABLET PO SCH (09:53)
[2020-02-02] MEDS: metoPROLOL SUCCINATE 25 MG TAB.SR.24H (FP) PO SCH (09:53)
[2020-02-02] MEDS: RIFAXIMIN 550 MG TABLET (UD) PO SCH (09:55)
[2020-02-02 10:14] VITALS: BMI 40.5
[2020-02-02 14:13] VITALS: TEMP 98.2
[2020-02-02 15:17] VITALS: BP 96/60; PULSE 80
--- NOTE | 2020-02-02 17:13 | PN ---
Progress Note (short form) - Note Progress Note: AWAITING TRANSFER FOR DISCHARGE D/W [employer] AND NURSE PAPERWORK COMPLETED MEDS SENT
== END 2020-02-02 17:23 | disposition home or self-care (01) | DRG 871 ==
LOC: JER 10:28 → JERBED 19:33 → JICU 21:24 → J6S 01-25 21:04 → J4W 01-31 20:34
PROVIDERS: ADMIT Internal Medicine Pulmonary Disease; ATTEND Family Medicine
PROC: 30233N1 Transfusion of Nonautologous Red Blood Cells into Peripheral Vein, Percutaneous Approach (ICD-10-PCS; 2020-01-23)
PROC: 0W9G3ZX Drainage of Peritoneal Cavity, Percutaneous Approach, Diagnostic (ICD-10-PCS; principal; 2020-01-25)
PROC: 02HV33Z Insertion of Infusion Device into Superior Vena Cava, Percutaneous Approach (ICD-10-PCS; 2020-01-31)
PROC: B518ZZA Fluoroscopy of Superior Vena Cava, Guidance (ICD-10-PCS; 2020-01-31)
DX: A40.8 Other streptococcal sepsis (principal); R65.21 Severe sepsis with septic shock; K76.7 Hepatorenal syndrome; G92 Toxic encephalopathy; N39.0 Urinary tract infection, site not specified; I50.32 Chronic diastolic (congestive) heart failure; E87.2 Acidosis; R18.8 Other ascites; D61.818 Other pancytopenia; Z68.41 Body mass index [BMI] 40.0-44.9, adult; N17.9 Acute kidney failure, unspecified; K72.90 Hepatic failure, unspecified without coma; K74.5 Biliary cirrhosis, unspecified; I10 Essential (primary) hypertension; J47.9 Bronchiectasis, uncomplicated; D64.9 Anemia, unspecified; D69.6 Thrombocytopenia, unspecified; K74.69 Other cirrhosis of liver; I48.91 Unspecified atrial fibrillation; E88.09 Other disorders of plasma-protein metabolism, not elsewhere classified; E66.9 Obesity, unspecified; E87.70 Fluid overload, unspecified; E78.5 Hyperlipidemia, unspecified; R31.29 Other microscopic hematuria; I87.2 Venous insufficiency (chronic) (peripheral); I95.9 Hypotension, unspecified; R41.82 Altered mental status, unspecified; N18.9 Chronic kidney disease, unspecified; K21.9 Gastro-esophageal reflux disease without esophagitis
CPT/HCPCS: 36415; 36430; 36511; 36569; 70450-TC; 71045-TC-FY; 71250-TC; 74176-TC; 76705-TC; 76942-TC; 77001-TC-FY; 80053; 81003; 82042; 82105; 82140; 82150; 82172; 82247; 82272; 82465; 82550; 82803; 82945; 82947; 82962; 82977; 83010; 83516; 83605; 83615; 83690; 83735; 83880; 83883; 83986; 84100; 84157; 84443; 84450; 84460; 84478; 84484; 85025; 85027; 85610; 85730; 86480; 86850; 86900; 86901; 86922; 87040; 87070; 87075; 87086; 87102; 87116; 87186; 87205; 87206; 87210; 88108; 88305-TC; 93005; 93010; 93306-TC; 94640; 94761; 97116-GP; 97162-GP; 99291; C1751; G0480; J0131; P9034; P9038; P9058; U0003

== ENCOUNTER 2020-02-15 22:56 | Inpatient (IN) | payer OTHER ==
--- NOTE | 2020-02-15 23:05 | PDOC ---
History of Present Illness - General Chief Complaint: Bleeding from PICC Line Stated Complaint: PICC LINE PROBLEM Time Seen by Provider: 02/15/20 23:05 History Source: Patient Exam Limitations: No Limitations - History of Present Illness Initial Comments: 02/15/20 23:05 74 y/o F with hx of cryptogenic cirrhosis, HFpEF, HTN, HLD, venous insufficiency, hepatic encephalopathy on eliquis [place] w bleeding from her PICC line site. Described as slow continuous bleeding from line insertion site. Was last seen for PICC line bleeding on 02/04. PICC line placed 01/[address] Carson, pt on rocephin until 02/18 for S mitis bacteremia/endocarditis, needs to be admitted for PICC line exchange. Pt denies lightheadedness, SOB, headache arm numbness/paresthesias/pain/swelling. Past History - Medical History Allergies/Adverse Reactions: Allergies Allergy/AdvReac Type Severity Reaction Status Date / Time No Known Allergies Allergy Verified 02/15/20 23:02 Home Medications: Ambulatory Orders Acetaminophen [Tylenol .Extra-Strength -] 1,000 mg PO Q6H PRN #240 tablet 01/31/20 Amino Acids/Protein Hydrolys [Prosource No Carb Liquid Pkt] 30 ml PO BID #1800 ml 01/31/20 Ceftriaxone [Rocephin -] 2 gm IVPB DAILY vial 01/31/20 Furosemide [Lasix -] 40 mg PO BID #60 tablet 01/31/20 Lactulose 10 gm PO TID #1350 ml 01/31/20 Spironolactone [Aldactone -] 100 mg PO DAILY #30 tablet 01/31/20 Apixaban [Eliquis -] 2.5 mg PO BID #60 tablet 02/01/20 Metoprolol Succinate [Toprol XL -] 25 mg PO DAILY #30 tab.sr.24h 02/01/20 Ceftriaxone [Rocephin -] 2 gm IVPB DAILY vial 02/05/20 Rifaximin [Xifaxan] 550 mg PO BID #60 tablet 02/05/20 Anemia: Yes Asthma: No Cancer: No Cardiac Disorders: Yes (HF) CVA: No COPD: No CHF: Yes Dementia: Yes Diabetes: No GI Disorders: Yes (GERD) Disorders: No HTN: Yes Hypercholesterolemia: Yes Liver Disease: Yes (CIRRHOSIS) Seizures: No Thyroid Disease: No - Surgical History Abdominal Surgery: No Appendectomy: No Cardiac Surgery: No Cholecystectomy: No Lung Surgery: No Neurologic Surgery: No Orthopedic Surgery: No - Immunization History Immunization Up to Date: Yes - Psycho-Social/Smoking History Smoking Status: No Smoking History: Never smoked Years of Tobacco Use: 10 Have you smoked in the past 12 months: No Number of Cigarettes Smoked Daily: 0 Review of Systems - Review of Systems Constitutional: No: Chills, Fever HEENTM: No: Eye Pain, Nose Congestion Respiratory: No: Cough, Shortness of Breath Cardiac (ROS): No: Chest Pain, Palpitations ABD/GI: No: Abdominal Distended, Constipated, Diarrhea, Nausea, Vomiting : No: Burning, Dysuria Musculoskeletal: No: Back Pain, Joint Pain Integumentary: No: Bruising, Flushing Neurological: No: Headache, Seizure Psychiatric: No: Anxiety, Depression Endocrine: No: Intolerance to Cold, Intolerance to Heat Hematologic/Lymphatic: Yes: Easy Bleeding. No: Anemia, Blood Clots *Physical Exam - Physical Exam General Appearance: Yes: Nourished, Appropriately Dressed. No: Apparent Distress HEENT: positive: EOMI, VICKY, Normal Voice. negative: Scleral Icterus (R), Scleral Icterus (L) Respiratory/Chest: positive: Lungs Clear, Normal Breath Sounds. negative: Chest Tender, Respiratory Distress Cardiovascular: positive: Regular Rhythm, Regular Rate, S1, S2. negative: Murmur Gastrointestinal/Abdominal: positive: Normal Bowel Sounds, Flat, Soft. negative: Tender, Organomegaly Extremity: positive: Pedal Edema (2+ BLE), Other (R PICC line in place, no active bleeding ) Integumentary: positive: Normal Color, Warm Neurologic: positive: Fully Oriented, Alert ED Treatment Course - LABORATORY CBC & Chemistry Diagram: 02/16/20 00:20 02/16/20 00:20 Medical Decision Making - Medical Decision Making 02/15/20 23:32 EKG - NSR, HR 63, QTc 442, LVH, no ST changes --- 74 y/o F with hx of cryptogenic cirrhosis, HFpEF, HTN, HLD, venous insufficiency, hepatic encephalopathy on eliquis [place] w bleeding from her PICC line site. No active bleeding. PICC line site cleaned, dressing changed, line flushed well. Low concern for infection (not erythematous, pt afebrile). Placed consult for Dr Freedman IR Admitted m/s hospitalist for PICC line replacement Discharge - Discharge Information Problems reviewed: Yes Clinical Impression/Diagnosis: Bleeding from PICC line Qualifiers: Encounter type: subsequent encounter Qualified Code(s): T82.838D - Hemorrhage due to vascular prosthetic devices, implants and grafts, subsequent encounter Condition: Good - Follow up/Referral - Patient Discharge Instructions - Post Discharge Activity
--- NOTE | 2020-02-15 23:24 | PDOC ---
Attending Attestation - Resident Resident Name: MikaAdonis - ED Attending Attestation I have performed the following: I have examined & evaluated the patient, The case was reviewed & discussed with the resident, I agree w/resident's findings & plan - HPI HPI: 02/15/20 23:22 Pt comes with PICC line bleeding and oozing, which has been ongoing since 02/06/2020. Now she comes with likely infected line; dressing smells like bacteria; she was sent for PICC line removal by Dr. Carson. Pt may have pseudomonal infection - she is on ceftriaxone at this time. PICC line tip needs to be sent for culture; line will be removed inpatient, as she is on eliquis. - Physicial Exam PE: 02/15/20 23:31 Pt is afebrile. She complains of pain in the right arm. Pt has no swelling and no redness. Pt has normal HEENT Pt has normal heart and lungs Pt has soft NT ND abd Pt has no flank pain Neuro grossly intact - Medical Decision Making 02/15/20 23:33 Pt will have basic labs and she will be admitted 02/16/20 00:50 Pt has Hb 7.6 this is normal range for the patient. Rest of labs are stable. Heart Score/ECG Review - ECG Intrepretation Rhythm: Regular Rhythm - [place]: Normal - P and AL Delta Wave(s) Present: No WPW: No - QRS Poor R Wave Progression: No Q Wave Present: No - ST and T Early Repolarization: No Non Specific ST-T Wave changes: No Flattened T Waves: No Prolonged Q-T Interval: No - ECG Impressions Normal ECG: Yes Non-specific ST Elevation: No Ischemic Changes: No Bradycardia: No Discharge - Discharge Information Problems reviewed: Yes Clinical Impression/Diagnosis: Bleeding from PICC line Qualifiers: Encounter type: subsequent encounter Qualified Code(s): T82.838D - Hemorrhage due to vascular prosthetic devices, implants and grafts, subsequent encounter Condition: Good - Follow up/Referral - Patient Discharge Instructions - Post Discharge Activity
[2020-02-16 00:35] LABS: BASO % 0.7 % (0-2.0); EOS % 7.5 % (0-4.5); HEMOGLOBIN 7.6 GM/dL (10.7-15.3); LYMPH % 22.2 % (8-40); MCH 29.3 pg (25.7-33.7); MCHC 31.8 g/dl (32.0-36.0); MEAN CELL VOLUME 92.1 fl (80-96); MEAN PLT VOLUME 9.9 fl (7.5-11.1); MONO % 15.6 % (3.8-10.2); PLATELET COUNT 62 K/MM3 (134-434); RBC 2.61 M/mm3 (3.60-5.2); RDW 19.3 % (11.6-15.6); WHITE BLOOD COUNT 5.4 K/mm3 (4.0-10.0)
[2020-02-16 00:46] LABS: INR 2.66 (0.83-1.09); PROTHROMBIN TIME (PATIENT) 31.7 SEC (9.7-13.0)
[2020-02-16 00:54] LABS: ALBUMIN 1.8 g/dl (3.4-5.0); BILIRUBIN,TOTAL 1.2 mg/dL (0.2-1); BLOOD UREA NITROGEN 16.4 mg/dL (7-18); CALCIUM 8.3 mg/dL (8.5-10.1); POTASSIUM 3.8 mmol/L (3.5-5.1); TOT PROT 6.6 g/dl (6.4-8.2)
--- NOTE | 2020-02-16 01:42 | HP ---
CHIEF COMPLAINT: R PICC line bleeding PCP: Dr. Carson HISTORY OF PRESENT ILLNESS: 74 y/o F from [facility] with PMH cirrhosis, HFpEF, afib on eliquis, CKD, venous insufficiency, who presents for bleeding RUE PICC line. Per pt, she was told by PMD to come to the hospital to have it exchanged. Pt had R PICC placed 01/31/2020 by IR d/t tx of possible endocarditis, and S. mitis bacteremia. She has been tx with ceftriaxone IVPB 2gm qd and is scheduled to finish her abx course on 02/19/2020. She has no other complaints; no VELASQUEZ, fever, chills, SOB, chest pain or changes in urinary or bowel function. Per pt, she underwent paracentesis 2 weeks ago. At baseline, she does not ambulate. ER course was notable for: (1) IR consultation Recent Travel: none PAST MEDICAL HISTORY: as above PAST SURGICAL HISTORY: denies Social History: Smoking: denies Alcohol: denies Drugs: denies Allergies No Known Allergies Allergy (Verified 02/15/20 23:02) HOME MEDICATIONS: Home Medications Medication Instructions Recorded Acetaminophen [Tylenol 1,000 mg PO Q6H PRN #240 tablet 01/31/20 .Extra-Strength -] Amino Acids/Protein Hydrolys 30 ml PO BID #1800 ml 01/31/20 [Prosource No Carb Liquid Pkt] Ceftriaxone [Rocephin -] 2 gm IVPB DAILY vial 01/31/20 Furosemide [Lasix -] 40 mg PO BID #60 tablet 01/31/20 Lactulose 10 gm PO TID #1350 ml 01/31/20 Spironolactone [Aldactone -] 100 mg PO DAILY #30 tablet 01/31/20 Apixaban [Eliquis -] 2.5 mg PO BID #60 tablet 02/01/20 Metoprolol Succinate [Toprol XL -] 25 mg PO DAILY #30 tab.sr.24h 02/01/20 Ceftriaxone [Rocephin -] 2 gm IVPB DAILY vial 02/05/20 Rifaximin [Xifaxan] 550 mg PO BID #60 tablet 02/05/20 PHYSICAL EXAMINATION Vital Signs - 24 hr 02/15/20 23:02 Temperature 98.2 F Pulse Rate 63 Respiratory 20 Rate Blood Pressure 99/48 L O2 Sat by Pulse 97 Oximetry (%) general: resting in bed, in NAD. AAO x 3 HEENT: NCAT, +injected L conjunctiva NCAT: supple cardio: S1, S2 RRR. no r/m/g pulm: CTA b/l. no accessory m usage abdomen: +obese, w/ extensive pannus. distended however w/o guarding or rigidity . +striae, caput [place] LE: 2+ pitting edema at baseline per ER staff (based on last visit) neuro: brickmason 2-12 grossly intact Laboratory Results - last 24 hr 02/16/20 02/16/20 02/16/20 00:20 00:20 00:20 WBC 5.4 RBC 2.61 L Hgb 7.6 L Hct 24.0 L MCV 92.1 MCH 29.3 MCHC 31.8 L RDW 19.3 H Plt Count 62 L MPV 9.9 Absolute Neuts (auto) 2.9 Neutrophils % 54.0 Lymphocytes % 22.2 D Monocytes % 15.6 H Eosinophils % 7.5 H Basophils % 0.7 Nucleated RBC % 0 PT with INR 31.70 H INR 2.66 H Sodium 139 Potassium 3.8 Chloride 100 Carbon Dioxide 33 H Anion Gap 6 L BUN 16.4 Creatinine 2.0 H Est GFR (CKD-EPI)AfAm 27.41 Est GFR (CKD-EPI)NonAf 23.65 Random Glucose 134 H Calcium 8.3 L Total Bilirubin 1.2 H AST 40 H ALT 16 Alkaline Phosphatase 121 H Total Protein 6.6 Albumin 1.8 L ASSESSMENT/PLAN: 74 y/o F from [facility] with PMH cirrhosis, HFpEF, afib on eliquis, CKD, venous insufficiency, who presents for bleeding RUE PICC line. #s. mitis bacteremia -pt has PICC for tx poss endocarditis -PICC was placed 01/30, on ceftriaxone 2gm IVPB qd . course to complete 02/18 -for PICC exchange -elevated INR as on eliquis, will hold #RUE PICC line bleed -f/u repeat CBC in AM. current H/H at baseline -hold eliquis #cirrhosis #HFpEF #past hx hepatic encephalopathy -currently does not appear to be decompensated -c/w aldactone, lasix, metoprolol #afib -hold eliquis -c/w metoprolol #CKD -possible additionally w/ BLAINE on CKD, may be exacerbated by hepatorenal syndrome -f/u repeat CMP in AM #F/E/N no IVF at this time continue to follow lytes na controlled diet #PPX hold eliquis #Dispo admit to med-surg Visit type - Emergency Visit Emergency Visit: Yes ED Registration Date: 02/15/20 Care time: The patient presented to the Emergency Department on the above date and was hospitalized for further evaluation of their emergent condition. - New Patient This patient is new to me today: Yes Date on this admission: 02/16/20 - Critical Care Critical Care patient: No
--- NOTE | 2020-02-16 01:43 | PN ---
Teaching Attending Note Name of Resident: Marina Blackwood ATTENDING PHYSICIAN STATEMENT I saw and evaluated the patient. I reviewed the resident's note and discussed the case with the resident. I agree with the resident's findings and plan as documented. SUBJECTIVE: 74 y/o F w/PMHx of cirrhosis, HFpEF, HTN, HLD, hepatic encephalopathy and hepatorenal syndrome w/ portal vein thrombosis & Afib on eliquis, Anemia of Chronic Disease presenting from [place] w bleeding from her PICC line site- PICC line placed 01/[address] Fre[address]man. Per Dr Carson, pt on Ceftriaxone 2 g QD until 02/18 for S.Mitis Bacteremia. OBJECTIVE: VS: Afeb HR 63 BP 99/48 Gen well appearing in NAD Ext 3 +pitting edema to knees b/l PICC line in place in right upper ext, dressing intact without any bleeding currently no erythema or surrounding cellulitis no fluctuance or drainage purulent Cardiac s1 s2 no m/r/g Lung CTA B/L Abd soft obese non distended ASSESSMENT AND PLAN: 74 y/o F w/PMHx of cirrhosis, HFpEF, HTN, HLD, hepatic encephalopathy and hepatorenal syndrome w/ portal vein thrombosis & Afib on eliquis, Anemia of Chronic Disease presenting from [place] w bleeding from her PICC line site- PICC line placed 01/[address] Carson, pt on Ceftriaxone 2 g QD until 02/18 for S.Mitis Bacteremia. VS: Afeb HR 63 BP 99/48 Labs: No leukocytosis H/H 7.6/24 Plt 62 INR 2.66 BUN/Creat 16.4/2.0 (1.5 in January) PICC Line Replacement No s/sx of infection monitor IR consulted , pt to complete abx 02/18 Monitor INR for procedure Hold Eliquis Monitor CBC next one in 4 hours Transfuse to keep HgB >7 this is patients baseline HgB If no plan to replace by IR today then remove and use peripheral to complete abx Advanced Cirrhosis Hepatorenal syndrome and Hepatic Encephalopathy history Portal Vein Thrombosis Pancytopenia 2/2 Anemia of Chronic Disease and Portal HTN Monitor CBC HgB at baseline from prior chart review Spirinolactone 100 mg daily Lasix 40 mg BID Lactulose 10 gm PO TID titrate to 2-3 BM Rifaximin 550 mg PO HFpEF HTN HLD Afib on Eliquis Hold Eliquis Hold anticoag, INR 2.66 Repeat INR in am Reassess anticoagulation given labile INR due to advance cirrhosis Metoprolol XL 25 mg daily Supp care: DVT Px: INR 2.66 Diet NPO
[2020-02-16] MEDS ORDERED: ARTIFICIAL TEARS (POLYVINYL ALCOHOL) OPTH DROPS OS PRN (01:51)
[2020-02-16] MEDS ORDERED: ACETAMINOPHEN 325 MG TABLET (FP) ONE (02:49)
[2020-02-16] MEDS: ACETAMINOPHEN 500 MG TABLET (FP) PO PRN ×2 (02:57→16:41)
[2020-02-16] MEDS: LACTULOSE 20 GM/30 ML UDC (FOR ORAL USE ONLY) PO SCH ×3 (05:56→22:16)
[2020-02-16] MEDS: FUROSEMIDE 40 MG TABLET (FP) PO SCH ×2 (05:57→13:54)
[2020-02-16] MEDS ORDERED: DEXTROSE 5%-WATER 100 ML IVPB ONE (09:07)
[2020-02-16] MEDS ORDERED: PT OWN MED DRAWER 7, Y5N ONE (09:09)
[2020-02-16] MEDS: SPIRONOLACTONE 25 MG TABLET PO SCH (09:17)
[2020-02-16] MEDS: CEFTRIAXONE 2 GM in DEXTROSE 5%-WATER 100 ML IVPB SCH (09:17)
[2020-02-16] MEDS: AMINO ACIDS/PROTEIN HYDROLYS 30 ML LIQUID.PKT PO SCH ×2 (09:17→16:42)
[2020-02-16] MEDS: RIFAXIMIN 550 MG TABLET (UD) PO SCH ×2 (09:17→22:16)
[2020-02-16] MEDS ORDERED: PATIENT'S OWN MEDICATION (NON-FORMULARY) (Ceftriaxone 2 GM) IVPB SCH (10:00)
[2020-02-16] MEDS ORDERED: metoPROLOL SUCCINATE 25 MG TAB.SR.24H (FP) PO SCH (10:00)
--- NOTE | 2020-02-16 13:49 | EKG ---
Test Reason : Blood Pressure : / mmHG Vent. Rate : 063 BPM Atrial Rate : 063 BPM P-R Int : 188 ms QRS Dur : 084 ms QT Int : 432 ms P-R-T Axes : 044 -10 006 degrees QTc Int : 442 ms NORMAL SINUS RHYTHM MODERATE VOLTAGE CRITERIA FOR LVH, MAY BE NORMAL VARIANT POSSIBLE LATERAL INFARCT (CITED ON OR BEFORE 04-FEB-2020) ABNORMAL ECG WHEN COMPARED WITH ECG OF 04-FEB-2020 15:32, QUESTIONABLE CHANGE IN INITIAL FORCES OF LATERAL LEADS Confirmed by MD BAYRON, ERICK ([id number]) on 02/16/2020 1:48:37 PM Referred By: Confirmed By:ERICK VERMA MD
--- NOTE | 2020-02-16 19:43 | HOSP ---
Subjective - Review of Symptoms Events since last encounter: RN reports concern for low BP. 95/40, MAP 58. Repeat 93/53, MAP 66. also concerned that patients abdomen seems distended. Subjective: Patient with complaint of abdominal pain that improved after having a BM. Denies lightheadedness, dizziness, SOB, chest pain, N/V/D. Physical Examination Vital Signs: Vital Signs Temperature 98.4 F 02/16/20 18:01 Pulse Rate 68 02/16/20 18:01 Respiratory Rate 18 02/16/20 18:01 Blood Pressure 93/53 L 02/16/20 18:01 O2 Sat by Pulse Oximetry (%) 95 02/16/20 09:00 Constitutional: Yes: No Distress, Calm Cardiovascular: Yes: Regular Rate and Rhythm Respiratory: Yes: CTA Bilaterally Gastrointestinal: Yes: Normal Bowel Sounds, Soft, Tenderness (RLQ) Labs: CBC, BMP 02/16/20 00:20 02/16/20 00:20 Hospitalist Encounter Assessment: 74yF with PMH cirrhosis, HFpEF, afib, CKD venous insufficiency, bacteremia on ceftriaxone evaluated in s/o soft BPs Borderline BP - hold parameters placed on metoprolol order - maintain MAP above 65 - consider albumin if BP drops Abdominal pain in s/o cirrhosis - improved after BM, cont bowel regimen (lactulose) - f/u WBC in am - consider paracentesis to r/o SBP, brittanie if wbc climbing, cont ceftriaxone - imaging if pain worsening. - patient requesting liver specialist referral, deferred to primary team.
[2020-02-17] MEDS: ACETAMINOPHEN 500 MG TABLET (FP) PO PRN ×4 (02:07→23:41)
[2020-02-17] MEDS: LACTULOSE 20 GM/30 ML UDC (FOR ORAL USE ONLY) PO SCH ×3 (05:54→21:52)
[2020-02-17] MEDS: FUROSEMIDE 40 MG TABLET (FP) PO SCH ×2 (05:55→13:55)
[2020-02-17 07:06] LABS: INR 2.04 (0.83-1.09); PROTHROMBIN TIME (PATIENT) 24.3 SEC (9.7-13.0)
[2020-02-17 07:14] LABS: HEMATOCRIT 26.4 % (32.4-45.2); HEMOGLOBIN 8.5 GM/dL (10.7-15.3); MCH 29.4 pg (25.7-33.7); MCHC 32.3 g/dl (32.0-36.0); MEAN CELL VOLUME 91.3 fl (80-96); MEAN PLT VOLUME 10.4 fl (7.5-11.1); PLATELET COUNT 76 K/MM3 (134-434); RBC 2.89 M/mm3 (3.60-5.2); RDW 19.2 % (11.6-15.6); WHITE BLOOD COUNT 6.6 K/mm3 (4.0-10.0)
[2020-02-17 07:24] LABS: ALBUMIN 1.8 g/dl (3.4-5.0); BILIRUBIN,TOTAL 1.8 mg/dL (0.2-1); BLOOD UREA NITROGEN 17.6 mg/dL (7-18); CALCIUM 8.4 mg/dL (8.5-10.1); MAGNESIUM 1.9 mg/dL (1.8-2.4); PHOSPHOROUS 3.5 mg/dL (2.5-4.9); POTASSIUM 4.5 mmol/L (3.5-5.1); TOT PROT 6.7 g/dl (6.4-8.2)
[2020-02-17] MEDS ORDERED: DEXTROSE 5%-WATER 100 ML IVPB ONE (08:30)
[2020-02-17] MEDS: AMINO ACIDS/PROTEIN HYDROLYS 30 ML LIQUID.PKT PO SCH ×2 (08:46→16:59)
[2020-02-17] MEDS ORDERED: SODIUM CHLORIDE 250 ML IV ONE (09:30)
[2020-02-17] MEDS: CEFTRIAXONE 2 GM in DEXTROSE 5%-WATER 100 ML IVPB SCH (09:54)
[2020-02-17] MEDS: RIFAXIMIN 550 MG TABLET (UD) PO SCH ×2 (09:55→21:54)
[2020-02-17] MEDS: SODIUM CHLORIDE 1,000 ML IV SCH ×2 (09:56→23:51)
[2020-02-17] MEDS: metoPROLOL SUCCINATE 25 MG TAB.SR.24H (FP) PO SCH (10:00)
[2020-02-17] MEDS: SPIRONOLACTONE 25 MG TABLET PO SCH (10:00)
--- NOTE | 2020-02-17 11:17 | PN ---
Progress Note, Physician Chief Complaint: AWAKE C/O RLQ ABD PAIN + APPETITE + BM BP LOW TODAY - Current Medication List Current Medications: Active Medications Acetaminophen (Tylenol -) 1,000 mg PO Q6H PRN PRN Reason: FEVER Last Admin: 02/17/20 09:55 Dose: 1,000 mg Documented by: Amino Acids (Prosource No Carb Liquid Pkt) 30 ml PO BIDWM [facility] Last Admin: 02/17/20 08:46 Dose: 30 ml Documented by: Artificial Tears (Artificial Tears) 1 drop OS BID PRN PRN Reason: DRY EYES Furosemide (Lasix -) 40 mg PO BIDLASIX [facility] Last Admin: 02/17/20 05:55 Dose: 40 mg Documented by: Ceftriaxone Sodium 2 gm/ (Dextrose) 100 mls @ 200 mls/hr IVPB DAILY [facility] Stop: 02/20/20 09:59 Last Admin: 02/17/20 09:54 Dose: 200 mls/hr Documented by: Sodium Chloride (Normal Saline -) 1,000 mls @ 75 mls/hr IV ASDIR [facility] Last Admin: 02/17/20 09:56 Dose: 75 mls/hr Documented by: Lactulose (Cephulac (Oral Use)) 10 gm PO TID [facility] Last Admin: 02/17/20 05:54 Dose: 10 gm Documented by: Metoprolol Succinate (Toprol Xl -) 25 mg PO DAILY [facility] Last Admin: 02/17/20 10:00 Dose: Not Given Documented by: Rifaximin (Xifaxan -) 550 mg PO BID [facility] Last Admin: 02/17/20 09:55 Dose: 550 mg Documented by: Spironolactone (Aldactone -) 100 mg PO DAILY [facility] Last Admin: 02/17/20 10:00 Dose: Not Given Documented by: - Objective Vital Signs: Vital Signs Temperature 97.9 F 02/17/20 06:00 Pulse Rate 62 02/17/20 06:00 Respiratory Rate 18 02/17/20 06:00 Blood Pressure 98/49 L 02/17/20 06:00 O2 Sat by Pulse Oximetry (%) 95 02/16/20 20:48 Constitutional: Yes: Mild Distress Cardiovascular: Yes: Pulse Irregular Respiratory: Yes: CTA Bilaterally Gastrointestinal: Yes: Soft, Abdomen, Obese, Tenderness (RLQ) Genitourinary: Yes: Incontinence Musculoskeletal: Yes: Muscle Weakness Edema: Yes Edema: LLE: Trace, RLE: Trace Labs: CBC, BMP 02/17/20 06:26 02/17/20 06:26 INR, PTT INR 2.04 (0.83-1.09) H 02/17/20 06:26 Problem List - Problems (1) Bleeding from PICC line Code(s): T82.838A - HEMORRHAGE DUE TO VASCULAR PROSTH DEV/GRFT, INIT Qualifiers: Encounter type: subsequent encounter Qualified Code(s): T82.838D - Hemorrhage due to vascular prosthetic devices, implants and grafts, subsequent encounter (2) Abdominal pain Code(s): R10.9 - UNSPECIFIED ABDOMINAL PAIN (3) Afib Code(s): I48.91 - UNSPECIFIED ATRIAL FIBRILLATION (4) Anemia Code(s): D64.9 - ANEMIA, UNSPECIFIED Assessment/Plan IVF BOLUS NOW 250CC X 1 THEN MAINTENANCE 75CC/HOUR CHECK LABS ABD XRAY BEDSIDE ORDERED PAIN CONTROL GI EVAL
[2020-02-18] MEDS ORDERED: SODIUM CHLORIDE 500 ML IV STA (01:47)
[2020-02-18] MEDS: FUROSEMIDE 40 MG TABLET (FP) PO SCH ×2 (05:01→14:59)
[2020-02-18] MEDS: LACTULOSE 20 GM/30 ML UDC (FOR ORAL USE ONLY) PO SCH ×3 (05:01→21:38)
--- NOTE | 2020-02-18 07:26 | PN ---
Progress Note (short form) - Note Progress Note: abdominal xray shows ileus, change diet to clear gi consult Problem List - Problems (1) Bleeding from PICC line Code(s): T82.838A - HEMORRHAGE DUE TO VASCULAR PROSTH DEV/GRFT, INIT Qualifiers: Encounter type: subsequent encounter Qualified Code(s): T82.838D - Hemorrhage due to vascular prosthetic devices, implants and grafts, subsequent encounter (2) Abdominal pain Code(s): R10.9 - UNSPECIFIED ABDOMINAL PAIN (3) Afib Code(s): I48.91 - UNSPECIFIED ATRIAL FIBRILLATION (4) Anemia Code(s): D64.9 - ANEMIA, UNSPECIFIED
[2020-02-18] MEDS ORDERED: DEXTROSE 5%-WATER 100 ML IVPB ONE (08:54)
[2020-02-18] MEDS: SODIUM CHLORIDE 1,000 ML IV SCH (09:02)
[2020-02-18] MEDS: SPIRONOLACTONE 25 MG TABLET PO SCH (09:02)
[2020-02-18] MEDS: metoPROLOL SUCCINATE 25 MG TAB.SR.24H (FP) PO SCH (09:03)
[2020-02-18] MEDS: CEFTRIAXONE 2 GM in DEXTROSE 5%-WATER 100 ML IVPB SCH (09:04)
[2020-02-18] MEDS: RIFAXIMIN 550 MG TABLET (UD) PO SCH ×2 (09:04→21:38)
[2020-02-18] MEDS: AMINO ACIDS/PROTEIN HYDROLYS 30 ML LIQUID.PKT PO SCH ×2 (09:04→17:17)
--- NOTE | 2020-02-18 09:15 | EKG ---
Test Reason : Blood Pressure : / mmHG Vent. Rate : 063 BPM Atrial Rate : 063 BPM P-R Int : 178 ms QRS Dur : 080 ms QT Int : 454 ms P-R-T Axes : 000 189 153 degrees QTc Int : 464 ms LEAD misplacement Sinus rhythm ABNORMAL ECG WHEN COMPARED WITH ECG OF 16-FEB-2020 00:41, Repeat ECG Confirmed by JIM HAILE MD ([id number]) on 02/18/2020 9:15:23 AM Referred By: Confirmed By:JIM HAILE MD
--- NOTE | 2020-02-18 12:55 | PN ---
Progress Note, Physician Chief Complaint: PICC line bleeding Cryptogenic cirrhosis History of Present Illness: NAD Transferred to [facility] for Hypotension. Pt is asymptomatic ON IVF AXR mild ileus, on clear liquid diet, tolerating well. - Current Medication List Current Medications: Active Medications Acetaminophen (Tylenol -) 1,000 mg PO Q6H PRN PRN Reason: FEVER Last Admin: 02/17/20 23:41 Dose: 1,000 mg Documented by: Amino Acids (Prosource No Carb Liquid Pkt) 30 ml PO BIDWM [facility] Last Admin: 02/18/20 09:04 Dose: 30 ml Documented by: Artificial Tears (Artificial Tears) 1 drop OS BID PRN PRN Reason: DRY EYES Furosemide (Lasix -) 40 mg PO BIDLASIX [facility] Last Admin: 02/18/20 05:01 Dose: Not Given Documented by: Ceftriaxone Sodium 2 gm/ (Dextrose) 100 mls @ 200 mls/hr IVPB DAILY [facility] Stop: 02/20/20 09:59 Last Admin: 02/18/20 09:04 Dose: 200 mls/hr Documented by: Lactulose (Cephulac (Oral Use)) 10 gm PO TID [facility] Last Admin: 02/18/20 05:01 Dose: Not Given Documented by: Metoprolol Succinate (Toprol Xl -) 12.5 mg PO DAILY [facility] Rifaximin (Xifaxan -) 550 mg PO BID [facility] Last Admin: 02/18/20 09:04 Dose: 550 mg Documented by: Spironolactone (Aldactone -) 100 mg PO DAILY [facility] Last Admin: 02/18/20 09:02 Dose: Not Given Documented by: - Objective Vital Signs: Vital Signs Temperature 98.4 F 02/18/20 09:57 Pulse Rate 62 02/18/20 09:57 Respiratory Rate 20 02/18/20 09:57 Blood Pressure 88/48 L 02/18/20 09:57 O2 Sat by Pulse Oximetry (%) 96 02/18/20 09:00 Constitutional: Yes: Well Nourished, No Distress, Calm, Obese Cardiovascular: Yes: Regular Rate and Rhythm Respiratory: Yes: Regular, CTA Bilaterally Gastrointestinal: Yes: Normal Bowel Sounds, Soft, Abdomen, Obese Genitourinary: Yes: Incontinence Musculoskeletal: Yes: Muscle Weakness Edema: Yes Edema: LLE: 3+, RLE: 3+ Peripheral Pulses WNL: Yes Neurological: Yes: Alert, Oriented Psychiatric: Yes: Alert, Oriented Labs: CBC, BMP 02/17/20 06:26 02/17/20 06:26 INR, PTT INR 2.04 (0.83-1.09) H 02/17/20 06:26 Problem List - Problems (1) Acute on chronic kidney failure Assessment/Plan: -Nephrology consult -Baseline Cr at 1.5 -Monitor trend Problems reviewed: Yes Code(s): N17.9 - ACUTE KIDNEY FAILURE, UNSPECIFIED; N18.9 - CHRONIC KIDNEY DISEASE, UNSPECIFIED (2) Bleeding from PICC line Assessment/Plan: -Cancel IR consult -Hold AC for now Problems reviewed: Yes Code(s): T82.838A - HEMORRHAGE DUE TO VASCULAR PROSTH DEV/GRFT, INIT Qualifiers: Encounter type: subsequent encounter Qualified Code(s): T82.838D - Hemorrhage due to vascular prosthetic devices, implants and grafts, subsequent encounter (3) Afib Assessment/Plan: -Hold Eliquis 2.5 mg po bid -Rate controlled -Tele monitoring Problems reviewed: Yes Code(s): I48.91 - UNSPECIFIED ATRIAL FIBRILLATION (4) Anemia Assessment/Plan: -Chronic 2/2 to cirrhosis, CKD -Will run Iron + B 12 profile, last done in 08/2019 -Stool OB negative 01/23/20 -monitor labs -transfuse only if Hg<7.0 Problems reviewed: Yes Code(s): D64.9 - ANEMIA, UNSPECIFIED (5) Ascites Problems reviewed: Yes Code(s): R18.8 - OTHER ASCITES Qualifiers: Ascites type: other type Qualified Code(s): R18.8 - Other ascites (6) Cryptogenic cirrhosis Assessment/Plan: -Continue lactulose + rifaxamine Problems reviewed: Yes Code(s): K74.69 - OTHER CIRRHOSIS OF LIVER (7) Hypotension Assessment/Plan: -2/2 to liver disease -pt asymptomatic -D/C IVF, no signs of volume depletion -decrease toprol to 12.5 mg po daily -Continue Furosemide and spironolactone -Nephrology + cardiology consult Problems reviewed: Yes Code(s): I95.9 - HYPOTENSION, UNSPECIFIED (8) Bacteremia Assessment/Plan: -Rocephin 2 gm, last dose on 02/19/2020 -Doesn't need PICC line to be replaced. Problems reviewed: Yes Code(s): R78.81 - BACTEREMIA Assessment/Plan See problem list
--- NOTE | 2020-02-18 17:12 | CONSULT ---
Consult Consult Specialty:: Nephrology Reason for Consultation:: BLAINE - History of Present Illness Chief Complaint: sent in for bleeding picc line History of Present Illness: Pt is a 74 year old female with pmhx of blaine, liver corrhosis, chf, a-fib, ckd who was sent in for picc line exchange. Pt was found to have hypotension and rapid a-fib. She was transferred to [facility]. 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 She currently denies shortness of breath. Her lower ext edema is markedly improved compared to her last visit. 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 History of Recent Travel: No Home Medications - Allergies Allergies/Adverse Reactions: Allergies Allergy/AdvReac Type Severity Reaction Status Date / Time No Known Allergies Allergy Verified 02/15/20 23:02 - Home Medications Home Medications: Ambulatory Orders Acetaminophen [Tylenol .Extra-Strength -] 1,000 mg PO Q6H PRN #240 tablet 01/31/20 Amino Acids/Protein Hydrolys [Prosource No Carb Liquid Pkt] 30 ml PO BID #1800 ml 01/31/20 Ceftriaxone [Rocephin -] 2 gm IVPB DAILY vial 01/31/20 Furosemide [Lasix -] 40 mg PO BID #60 tablet 01/31/20 Lactulose 10 gm PO TID #1350 ml 01/31/20 Spironolactone [Aldactone -] 100 mg PO DAILY #30 tablet 01/31/20 Apixaban [Eliquis -] 2.5 mg PO BID #60 tablet 02/01/20 Metoprolol Succinate [Toprol XL -] 25 mg PO DAILY #30 tab.sr.24h 02/01/20 Ceftriaxone [Rocephin -] 2 gm IVPB DAILY vial 02/05/20 Rifaximin [Xifaxan] 550 mg PO BID #60 tablet 02/05/20 Family Medical History Family History: Denies Review of Systems - Review of Systems Constitutional: reports: Malaise Eyes: reports: No Symptoms HENT: reports: No Symptoms Neck: reports: No Symptoms Cardiovascular: reports: No Symptoms Respiratory: reports: No Symptoms Gastrointestinal: reports: No Symptoms Musculoskeletal: reports: No Symptoms Integumentary: reports: No Symptoms Neurological: reports: No Symptoms Endocrine: reports: No Symptoms Hematology/Lymphatic: reports: No Symptoms Psychiatric: reports: No Symptoms Physical Exam Vital Signs: Vital Signs Temperature 98.1 F 02/18/20 13:00 Pulse Rate 66 02/18/20 13:00 Respiratory Rate 20 02/18/20 13:00 Blood Pressure 88/47 L 02/18/20 13:00 O2 Sat by Pulse Oximetry (%) 96 02/18/20 09:00 Constitutional: Yes: Calm Eyes: Yes: Conjunctiva Clear HENT: Yes: Atraumatic Cardiovascular: Yes: Tachycardia, S1, S2 Respiratory: Yes: CTA Bilaterally Gastrointestinal: Yes: Soft, Abdomen, Obese Musculoskeletal: Yes: WNL Edema: Yes Edema: LLE: Trace, RLE: Trace Neurological: Yes: Oriented Psychiatric: Yes: Oriented Labs: CBC, BMP 02/17/20 06:26 02/17/20 06:26 Imaging - Results X-ray: Report Reviewed Assessment/Plan Current Medications Generic Name Dose Route Start Last Admin Trade Name Freq PRN Reason Stop Dose Admin Acetaminophen 1,000 mg 02/16/20 01:36 02/17/20 23:41 Tylenol - PO 1,000 mg Q6H PRN Administration FEVER Amino Acids 30 ml 02/16/20 08:00 02/18/20 09:04 Prosource No Carb Liquid Pkt PO 30 ml BIDWM TAMMY Administration Artificial Tears 1 drop 02/16/20 01:51 Artificial Tears OS BID PRN DRY EYES Furosemide 40 mg 02/16/20 06:00 02/18/20 14:59 Lasix - PO 40 mg BIDLASIX TAMMY Administration Ceftriaxone Sodium 2 gm/ 100 mls @ 200 mls/hr 02/16/20 10:00 02/18/20 09:04 Dextrose IVPB 02/20/20 09:59 200 mls/hr DAILY TAMMY Administration Lactulose 10 gm 02/16/20 06:00 02/18/20 14:58 Cephulac (Oral Use) PO 10 gm TID TAMMY Administration Metoprolol Succinate 12.5 mg 02/18/20 12:47 Toprol Xl - PO DAILY TAMMY Rifaximin 550 mg 02/16/20 10:00 02/18/20 09:04 Xifaxan - PO 550 mg BID TAMMY Administration Spironolactone 100 mg 02/16/20 10:00 02/18/20 09:02 Aldactone - PO Not Given DAILY TAMMY Impression 1. BLAINE 2. ascites 3. liver cirrhosis 4. ileus 5. microscopic hematuria 6. sepsis 7. a-fib Plan - can hold lasix until bp improved - repeat labs in am - pt on clears for ileus - volume status improved compared to last visit - will follow
[2020-02-18] MEDS ORDERED: SODIUM CHLORIDE 250 ML IV STA (17:13)
[2020-02-18] MEDS ORDERED: PT OWN MED DRAWER 7, Y5N ONE (21:03)
--- NOTE | 2020-02-18 21:45 | CON.GI ---
Consult Consult Specialty:: Gastroenterology Referred by:: Candi Montero NP Reason for Consultation:: Ileus - History of Present Illness Chief Complaint: RLQ abdominal pain History of Present Illness: 74F is transferred from the [place] for management of a PICC line leak. Yesterday she reported dull RLQ swelling and pain. KUB suggests an ileus but Maya denies N/V, any relationship of this pain to eating and tells me that she is moving her bowels regularly. I saw her in consultaion earlier tis month for ascites that was felt to be related to cirrhosis related to KING. Her echo revealed a stiff ventricle with 62% EF, normal RV function and minimal TR. Her viral serologies LIZETH and smooth muscle antibody were negative. She did have paroxysmal NADIA during that stay and was found to have Strep mitis bacteremia for which the PICC line was inserted. She had a paracentesis by IR at that time which I believe was taken from this area. The pain is aggravated by pressing in the area. She had a colonoscopy at [facility] but cannot recall the details. She denies FH of GI cancer. 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 Cardio/Vascular: Yes: AFIB (paroxysmal NADIA), CHF, HTN, Other Gastrointestinal: Yes: Ascites Hepatobiliary: Yes: Cirrhosis (likely due to KING with ascites and hepatic encephalopathy) Renal/: Yes: Renal Inusuff Infectious Disease: Yes: Other (Strep mitis bacteremia) - Past Surgical History Past Surgical History: Yes: None Additional Surgical History: RUE PICC line insertion - Alcohol/Substance Use Hx Alcohol Use: No History of Substance Use: reports: None - Smoking History Smoking history: Never smoked Have you smoked in the past 12 months: No Aproximately how many cigarettes per day: 0 - Social History Usual Living Arrangement: Longterm 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 History of Recent Travel: No Home Medications - Allergies Allergies/Adverse Reactions: Allergies Allergy/AdvReac Type Severity Reaction Status Date / Time No Known Allergies Allergy Verified 02/15/20 23:02 - Home Medications Home Medications: Ambulatory Orders Acetaminophen [Tylenol .Extra-Strength -] 1,000 mg PO Q6H PRN #240 tablet 01/31/20 Amino Acids/Protein Hydrolys [Prosource No Carb Liquid Pkt] 30 ml PO BID #1800 ml 01/31/20 Ceftriaxone [Rocephin -] 2 gm IVPB DAILY vial 01/31/20 Furosemide [Lasix -] 40 mg PO BID #60 tablet 01/31/20 Lactulose 10 gm PO TID #1350 ml 01/31/20 Spironolactone [Aldactone -] 100 mg PO DAILY #30 tablet 01/31/20 Apixaban [Eliquis -] 2.5 mg PO BID #60 tablet 02/01/20 Metoprolol Succinate [Toprol XL -] 25 mg PO DAILY #30 tab.sr.24h 02/01/20 Ceftriaxone [Rocephin -] 2 gm IVPB DAILY vial 02/05/20 Rifaximin [Xifaxan] 550 mg PO BID #60 tablet 02/05/20 Family Medical History Family Hx Cardiac Disorders: Father ( of [place] age 73) Other Family History: mother lived to Review of Systems - Review of Systems Constitutional: reports: Weakness Eyes: reports: No Symptoms HENT: reports: No Symptoms, Ocular Prosthesis Cardiovascular: reports: Palpitations, Shortness of Breath Respiratory: reports: Exercise Intolerance Gastrointestinal: reports: Abdominal Pain Musculoskeletal: reports: Other (right buttock soreness) Physical Exam-GI Vital Signs: Vital Signs Temperature 98.0 F 02/18/20 18:00 Pulse Rate 64 02/18/20 18:00 Respiratory Rate 20 02/18/20 18:00 Blood Pressure 101/58 L 02/18/20 18:00 O2 Sat by Pulse Oximetry (%) 96 02/18/20 09:00 CBC,CMP WBC 6.6 K/mm3 (4.0-10.0) 02/17/20 06:26 RBC 2.89 M/mm3 (3.60-5.2) L 02/17/20 06:26 Hgb 8.5 GM/dL (10.7-15.3) L 02/17/20 06:26 Hct 26.4 % (32.4-45.2) L 02/17/20 06:26 MCV 91.3 fl (80-96) 02/17/20 06:26 MCH 29.4 pg (25.7-33.7) 02/17/20 06:26 MCHC 32.3 g/dl (32.0-36.0) 02/17/20 06:26 RDW 19.2 % (11.6-15.6) H 02/17/20 06:26 Plt Count 76 K/MM3 (134-434) L D 02/17/20 06:26 MPV 10.4 fl (7.5-11.1) 02/17/20 06:26 Absolute Neuts (auto) 2.9 K/mm3 (1.5-8.0) 02/16/20 00:20 Neutrophils % 54.0 % (42.8-82.8) 02/16/20 00:20 Lymphocytes % 22.2 % (8-40) D 02/16/20 00:20 Monocytes % 15.6 % (3.8-10.2) H 02/16/20 00:20 Eosinophils % 7.5 % (0-4.5) H 02/16/20 00:20 Basophils % 0.7 % (0-2.0) 02/16/20 00:20 Nucleated RBC % 0 % (0-0) 02/16/20 00:20 Sodium 138 mmol/L (136-145) 02/17/20 06:26 Potassium 4.5 mmol/L (3.5-5.1) 02/17/20 06:26 Chloride 100 mmol/L (98-107) 02/17/20 06:26 Carbon Dioxide 36 mmol/L (21-32) H 02/17/20 06:26 Anion Gap 3 MMOL/L (8-16) L 02/17/20 06:26 BUN 17.6 mg/dL (7-18) 02/17/20 06:26 Creatinine 2.0 mg/dL (0.55-1.3) H 02/17/20 06:26 Est GFR (CKD-EPI)AfAm 27.41 02/17/20 06:26 Est GFR (CKD-EPI)NonAf 23.65 02/17/20 06:26 Random Glucose 79 mg/dL (74-106) 02/17/20 06:26 Calcium 8.4 mg/dL (8.5-10.1) L 02/17/20 06:26 Phosphorus 3.5 mg/dL (2.5-4.9) 02/17/20 06:26 Magnesium 1.9 mg/dL (1.8-2.4) 02/17/20 06:26 Total Bilirubin 1.8 mg/dL (0.2-1) H 02/17/20 06:26 AST 38 U/L (15-37) H 02/17/20 06:26 ALT 15 U/L (13-61) 02/17/20 06:26 Alkaline Phosphatase 106 U/L (45-117) 02/17/20 06:26 Total Protein 6.7 g/dl (6.4-8.2) 02/17/20 06:26 Albumin 1.8 g/dl (3.4-5.0) L 02/17/20 06:26 Current Medications Generic Name Dose Route Start Last Admin Trade Name Freq PRN Reason Stop Dose Admin Acetaminophen 1,000 mg 02/16/20 01:36 02/17/20 23:41 Tylenol - PO 1,000 mg Q6H PRN Administration FEVER Amino Acids 30 ml 02/16/20 08:00 02/18/20 17:17 Prosource No Carb Liquid Pkt PO 30 ml BIDWM TAMMY Administration Artificial Tears 1 drop 02/16/20 01:51 Artificial Tears OS BID PRN DRY EYES Furosemide 40 mg 02/16/20 06:00 02/18/20 14:59 Lasix - PO 40 mg BIDLASIX TAMMY Administration Ceftriaxone Sodium 2 gm/ 100 mls @ 200 mls/hr 02/16/20 10:00 02/18/20 09:04 Dextrose IVPB 02/20/20 09:59 200 mls/hr DAILY TAMMY Administration Lactulose 10 gm 02/16/20 06:00 02/18/20 21:38 Cephulac (Oral Use) PO 10 gm TID TAMMY Administration Metoprolol Succinate 12.5 mg 02/18/20 12:47 Toprol Xl - PO DAILY TAMMY Rifaximin 550 mg 02/16/20 10:00 02/18/20 21:38 Xifaxan - PO 550 mg BID TAMMY Administration Spironolactone 100 mg 02/16/20 10:00 02/18/20 09:02 Aldactone - PO Not Given DAILY TAMMY Constitutional: Yes: Calm Eyes: Yes: Conjunctiva Clear HENT: Yes: Normocephalic Neck: Yes: Trachea Midline Cardiovascular: Yes: Regular Rate and Rhythm Respiratory: Yes: CTA Bilaterally ...Auscultate: Yes: Normoactive Bowel Sounds ...Palpate: Yes: Soft, Tenderness (mild RLQ tenderness with marked abdominal wall edema but no mass) ...Rectal Exam: Yes: Guaiac Negative (no masses, soft brown guaiac negative stool. no decubitus seen) Edema: LLE: 2+, RLE: 2+ Neurological: Yes: Alert, Oriented Labs: CBC, BMP 02/17/20 06:26 02/17/20 06:26 INR, PTT INR 2.04 (0.83-1.09) H 02/17/20 06:26 Laboratory Tests 07/19/17 07/21/17 09/06/18 17:00 05:05 05:30 Iron Saturation Ferritin LIZETH Screen Smooth Musc &MASTIC FLOOR LAYER Intrp Tiss Transglutamin IgG Tiss Transglutamin IgA COVID-19 (RABIA) Hepatitis A IgM Ab Negative Hep A IgM Ab Confirm Negative Hepatitis A Ab Total Positive H Hep Bs Antigen Negative Hep Bs Antibody Non reactive Hep B Core Total Ab Negative Hep B Core IgM Ab Negative Hepatitis Be Antibody Negative Hepatitis Be Antigen Negative Hep C Ab Diagnostic 0.1 09/08/18 09/09/18 09/09/18 06:00 15:04 15:04 Iron Saturation 36 Ferritin 165.1 LIZETH Screen Negative Smooth Musc &MASTIC FLOOR LAYER Intrp 11 Tiss Transglutamin IgG Tiss Transglutamin IgA COVID-19 (RABIA) Hepatitis A IgM Ab Hep A IgM Ab Confirm Hepatitis A Ab Total Hep Bs Antigen Hep Bs Antibody Hep B Core Total Ab Hep B Core IgM Ab Hepatitis Be Antibody Hepatitis Be Antigen Hep C Ab Diagnostic 01/31/20 02/16/20 05:52 01:41 Iron Saturation Ferritin LIZETH Screen Smooth Musc &MASTIC FLOOR LAYER Intrp Tiss Transglutamin IgG 5 Tiss Transglutamin IgA < 2 COVID-19 (RABIA) Not detected Hepatitis A IgM Ab Hep A IgM Ab Confirm Hepatitis A Ab Total Hep Bs Antigen Hep Bs Antibody Hep B Core Total Ab Hep B Core IgM Ab Hepatitis Be Antibody Hepatitis Be Antigen Hep C Ab Diagnostic Laboratory Tests 10/17/16 07/23/17 06/04/18 11:08 05:05 20:15 Hgb 11.5 9.6 L 10.6 L 09/05/18 09/10/18 03/02/19 10:50 05:50 23:00 Hgb 10.7 8.8 L 8.4 L 01/23/20 02/02/20 02/16/20 11:30 20:58 00:20 Hgb 6.8 L* 8.4 L 7.6 L 02/17/20 06:26 Hgb 8.5 L Problem List - Problems (1) Abdominal pain Code(s): R10.9 - UNSPECIFIED ABDOMINAL PAIN (2) Edema of abdominal wall Code(s): R60.0 - LOCALIZED EDEMA (3) 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 steatohepatitis) Code(s): K75.81 - NONALCOHOLIC STEATOHEPATITIS (KING); K74.60 - UNSPECIFIED CIRRHOSIS OF LIVER (4) Cirrhosis of liver with ascites Code(s): K74.60 - UNSPECIFIED CIRRHOSIS OF LIVER; R18.8 - OTHER ASCITES (5) Paroxysmal atrial fibrillation with rapid ventricular response Code(s): I48.0 - PAROXYSMAL ATRIAL FIBRILLATION (6) Acute on chronic kidney failure Code(s): N17.9 - ACUTE KIDNEY FAILURE, UNSPECIFIED; N18.9 - CHRONIC KIDNEY DISEASE, UNSPECIFIED (7) Bleeding from PICC line Code(s): T82.838A - HEMORRHAGE DUE TO VASCULAR PROSTH DEV/GRFT, INIT Qualifiers: Encounter type: subsequent encounter Qualified Code(s): T82.838D - Hemorrhage due to vascular prosthetic devices, implants and grafts, subsequent encounter (8) Hepatic encephalopathy Code(s): K72.90 - HEPATIC FAILURE, UNSPECIFIED WITHOUT COMA (9) Infection due to Streptococcus mitis group Code(s): A49.1 - STREPTOCOCCAL INFECTION, UNSPECIFIED SITE Assessment/Plan Impression: - I believe that Maya's RLQ pain is due to an underling hematoma at her previous paracentesis site rather than a primary GI process and will advance her diet and order a CT scan. I will withhold IV contrast given her creatinine of 2 . - Her anemia and cirrhosis suggest intermittent bleeidng from portal gastropathy but varices need to be excluded. Will defer until her bactermia clears Plan: - Advance diet - CT with oral contrast to exclude a major peritoneal hematoma and bowel injury - Panendoscopy when medically feasible - PPI empirically - Continue lactulose, rifaximin, spironolactone and lasix
[2020-02-19] MEDS: ACETAMINOPHEN 500 MG TABLET (FP) PO PRN ×2 (01:22→07:58)
[2020-02-19] MEDS: LACTULOSE 20 GM/30 ML UDC (FOR ORAL USE ONLY) PO SCH ×3 (05:06→22:21)
[2020-02-19 08:06] LABS: BASO % 0.9 % (0-2.0); EOS % 5.8 % (0-4.5); HEMATOCRIT 24.1 % (32.4-45.2); HEMOGLOBIN 7.7 GM/dL (10.7-15.3); LYMPH % 24.9 % (8-40); MCH 29.3 pg (25.7-33.7); MCHC 31.9 g/dl (32.0-36.0); MEAN CELL VOLUME 91.8 fl (80-96); MEAN PLT VOLUME 10.3 fl (7.5-11.1); MONO % 13.6 % (3.8-10.2); NEUT % 54.8 % (42.8-82.8); PLATELET COUNT 66 K/MM3 (134-434); RBC 2.62 M/mm3 (3.60-5.2); RDW 18.3 % (11.6-15.6); RETICULOCYTES 2.71 % (0.5-1.5); WHITE BLOOD COUNT 5.7 K/mm3 (4.0-10.0)
[2020-02-19 08:26] LABS: ALBUMIN 1.7 g/dl (3.4-5.0); BILIRUBIN,TOTAL 2.2 mg/dL (0.2-1); BLOOD UREA NITROGEN 21.2 mg/dL (7-18); CALCIUM 7.8 mg/dL (8.5-10.1); CREATININE 1.7 mg/dL (0.55-1.3); POTASSIUM 3.6 mmol/L (3.5-5.1); TOT PROT 6.3 g/dl (6.4-8.2)
[2020-02-19] MEDS ORDERED: DEXTROSE 5%-WATER 100 ML IVPB ONE (09:40)
[2020-02-19] MEDS ORDERED: PT OWN MED DRAWER 7, Y5N ONE (09:40)
--- NOTE | 2020-02-19 09:41 | CON.CARD ---
Consult Consult Specialty:: Cardiology Referred by:: Herlinda Reason for Consultation:: hypotension, PAF - History of Present Illness Chief Complaint: transferred to [facility] for hypotension History of Present Illness: 74 year-old woman with a PMHx of HTN, HLD, chronic diastolic CHF, cirrhosis, ascites, venous insufficiency, and h/o portal vein thrombosis in past recent admission for sepsis and bacteremia, PAF with RVR on Eliquis, now admitted with leak from PICC line, worsening renal insufficiency and PAF, hypotension with no symptoms. She is done with her abx course for strep mitis. She has been having overnight shoulder swelling and pain on the side of the PICC line. She has been off of eliquis due to leak and awaiting removal. Echocardiogram 01/23/20: Normal LV size, wall motion and systolic function. LVEF 62%. Abnormal diastolic relaxation. Normal RV. Moderate to severe LA dilatation. No significant valve disease. 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 Cardio/Vascular: Yes: AFIB (paroxysmal NADIA), CHF, HTN, Other Gastrointestinal: Yes: Ascites Hepatobiliary: Yes: Cirrhosis (likely due to KING with ascites and hepatic encephalopathy) Renal/: Yes: Renal Inusuff Infectious Disease: Yes: Other (Strep mitis bacteremia) - Past Surgical History Past Surgical History: Yes: None Additional Surgical History: RUE PICC line insertion - Alcohol/Substance Use Hx Alcohol Use: No History of Substance Use: reports: None - Smoking History Smoking history: Never smoked Have you smoked in the past 12 months: No Aproximately how many cigarettes per day: 0 - Social History Usual Living Arrangement: Snf 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 History of Recent Travel: No Home Medications - Allergies Allergies/Adverse Reactions: Allergies Allergy/AdvReac Type Severity Reaction Status Date / Time No Known Allergies Allergy Verified 02/15/20 23:02 - Home Medications Home Medications: Ambulatory Orders Acetaminophen [Tylenol .Extra-Strength -] 1,000 mg PO Q6H PRN #240 tablet 01/31/20 Amino Acids/Protein Hydrolys [Prosource No Carb Liquid Pkt] 30 ml PO BID #1800 ml 01/31/20 Ceftriaxone [Rocephin -] 2 gm IVPB DAILY vial 01/31/20 Furosemide [Lasix -] 40 mg PO BID #60 tablet 01/31/20 Lactulose 10 gm PO TID #1350 ml 01/31/20 Spironolactone [Aldactone -] 100 mg PO DAILY #30 tablet 01/31/20 Apixaban [Eliquis -] 2.5 mg PO BID #60 tablet 02/01/20 Metoprolol Succinate [Toprol XL -] 25 mg PO DAILY #30 tab.sr.24h 02/01/20 Ceftriaxone [Rocephin -] 2 gm IVPB DAILY vial 02/05/20 Rifaximin [Xifaxan] 550 mg PO BID #60 tablet 02/05/20 Vital Signs: Vital Signs Temperature 98 F 02/19/20 06:00 Pulse Rate 72 02/19/20 06:00 Respiratory Rate 20 02/19/20 09:00 Blood Pressure 115/58 L 02/19/20 06:00 O2 Sat by Pulse Oximetry (%) 95 02/19/20 09:00 Constitutional: Yes: No Distress, Calm Eyes: Yes: Conjunctiva Clear, EOM Intact HENT: Yes: Atraumatic, Normocephalic Neck: Yes: Trachea Midline Respiratory: Yes: CTA Bilaterally Gastrointestinal: Yes: Normal Bowel Sounds, Soft Cardiovascular: Yes: Regular Rate and Rhythm JVD: No Carotid Bruit: No PMI: Non-Displaced Heart Sounds: Yes: S1 Extremities: Yes: Other (right shoulder tenderness and swelling.) Edema: No Peripheral Pulses WNL: Yes - Other Data Labs, Other Data: CBC, BMP 02/19/20 05:56 02/19/20 05:56 INR, PTT INR 2.04 (0.83-1.09) H 02/17/20 06:26 Imaging - Results Chest X-ray: Report Reviewed EKG: Report Reviewed (needs repeat) Assessment/Plan 74 year-old woman with a PMHx of HTN, HLD, chronic diastolic CHF, cirrhosis, ascites, venous insufficiency, and h/o portal vein thrombosis in past recent admission for sepsis and bacteremia, PAF with RVR deemed not an AC candidate, now admitted with leak from PICC line, worsening renal insufficiency and PAF, hypotension with no symptoms. Echocardiogram 01/23/20: Normal LV size, wall motion and systolic function. LVEF 62%. Abnormal diastolic relaxation. Normal RV. Moderate to severe LA dilatation. No significant valve disease. PASP 28 mmHg Plan -telemetry shows all nsr at present. -continue monitoring. -no need for repeat studies. -hypotension is likely due to her shunting and cirrhosis from liver disease. no evidence of cardiac source. -hold AC until PICC line is out then restart felisha. -would get sonogram RUE to rule out DVT. Consider further imaging if clinical suspicion of hematoma or other collection with CT or MRI. -continue low dose beta dana. -will follow with you.
[2020-02-19] MEDS: AMINO ACIDS/PROTEIN HYDROLYS 30 ML LIQUID.PKT PO SCH ×2 (09:48→17:28)
[2020-02-19] MEDS: CEFTRIAXONE 2 GM in DEXTROSE 5%-WATER 100 ML IVPB SCH (09:48)
[2020-02-19] MEDS: metoPROLOL SUCCINATE 25 MG TAB.SR.24H (FP) PO SCH (09:50)
[2020-02-19] MEDS: RIFAXIMIN 550 MG TABLET (UD) PO SCH ×2 (09:50→22:16)
--- NOTE | 2020-02-19 12:27 | EKG ---
Test Reason : Blood Pressure : / mmHG Vent. Rate : 058 BPM Atrial Rate : 058 BPM P-R Int : 186 ms QRS Dur : 082 ms QT Int : 452 ms P-R-T Axes : 011 -07 032 degrees QTc Int : 443 ms SINUS BRADYCARDIA OTHERWISE NORMAL ECG Confirmed by Jose Koch MD ([id number]) on 02/19/2020 12:26:45 PM Referred By: Asia SHANNON Confirmed By:Jose Koch MD
--- NOTE | 2020-02-19 16:42 | PN ---
Progress Note, Physician Chief Complaint: PICC line bleeding Cryptogenic cirrhosis Right shoulder pain History of Present Illness: NAD c/o right shoulder pain Seen by GI- CTAP w/ oral contrast ordered-shows no bowel obstruction - Current Medication List Current Medications: Active Medications Acetaminophen (Tylenol -) 1,000 mg PO Q6H PRN PRN Reason: FEVER Last Admin: 02/19/20 07:58 Dose: 1,000 mg Documented by: Amino Acids (Prosource No Carb Liquid Pkt) 30 ml PO BIDWM [facility] Last Admin: 02/19/20 09:48 Dose: 30 ml Documented by: Artificial Tears (Artificial Tears) 1 drop OS BID PRN PRN Reason: DRY EYES Furosemide (Lasix -) 40 mg PO BIDLASIX [facility] Last Admin: 02/18/20 14:59 Dose: 40 mg Documented by: Lactulose (Cephulac (Oral Use)) 10 gm PO TID [facility] Last Admin: 02/19/20 13:57 Dose: Not Given Documented by: Metoprolol Succinate (Toprol Xl -) 12.5 mg PO DAILY [facility] Last Admin: 02/19/20 09:50 Dose: 12.5 mg Documented by: Rifaximin (Xifaxan -) 550 mg PO BID [facility] Last Admin: 02/19/20 09:50 Dose: 550 mg Documented by: Spironolactone (Aldactone -) 100 mg PO DAILY [facility] Last Admin: 02/18/20 09:02 Dose: Not Given Documented by: - Objective Vital Signs: Vital Signs Temperature 98 F 02/19/20 14:00 Pulse Rate 68 02/19/20 14:00 Respiratory Rate 20 02/19/20 14:00 Blood Pressure 95/47 L 02/19/20 14:00 O2 Sat by Pulse Oximetry (%) 95 02/19/20 09:00 Constitutional: Yes: Well Nourished, No Distress, Calm, Obese Cardiovascular: Yes: Regular Rate and Rhythm Respiratory: Yes: Regular, Diminished Gastrointestinal: Yes: Normal Bowel Sounds, Soft, Abdomen, Obese, Ascites Genitourinary: Yes: Incontinence Musculoskeletal: Yes: Joint Swelling (right shoulder), Muscle Weakness Extremities: Yes: WNL Edema: Yes Edema: LLE: 2+, RLE: 3+ Peripheral Pulses WNL: Yes Neurological: Yes: Alert, Oriented Psychiatric: Yes: Alert, Oriented Labs: CBC, BMP 02/19/20 05:56 02/19/20 05:56 INR, PTT INR 2.04 (0.83-1.09) H 02/17/20 06:26 Problem List - Problems (1) Acute on chronic kidney failure Assessment/Plan: -Nephrology consult -Baseline Cr at 1.5 -Monitor trend Problems reviewed: Yes Code(s): N17.9 - ACUTE KIDNEY FAILURE, UNSPECIFIED; N18.9 - CHRONIC KIDNEY DISEASE, UNSPECIFIED (2) Bleeding from PICC line Assessment/Plan: -remove PICC line Problems reviewed: Yes Code(s): T82.838A - HEMORRHAGE DUE TO VASCULAR PROSTH DEV/GRFT, INIT Qualifiers: Encounter type: subsequent encounter Qualified Code(s): T82.838D - Hemorrhage due to vascular prosthetic devices, implants and grafts, subsequent encounter (3) Afib Assessment/Plan: -Hold Eliquis 2.5 mg po bid -Rate controlled -Tele monitoring Problems reviewed: Yes Code(s): I48.91 - UNSPECIFIED ATRIAL FIBRILLATION (4) Anemia Assessment/Plan: -Chronic 2/2 to cirrhosis, CKD -Iron + B 12 profile normal -Stool OB negative 01/23/20 -monitor labs -transfuse only if Hg<7.0 Problems reviewed: Yes Code(s): D64.9 - ANEMIA, UNSPECIFIED (5) Ascites Problems reviewed: Yes Code(s): R18.8 - OTHER ASCITES Qualifiers: Ascites type: other type Qualified Code(s): R18.8 - Other ascites (6) Cryptogenic cirrhosis Assessment/Plan: -Continue lactulose + rifaxamine Problems reviewed: Yes Code(s): K74.69 - OTHER CIRRHOSIS OF LIVER (7) Hypotension Assessment/Plan: -2/2 to liver disease -pt asymptomatic -D/C IVF, no signs of volume depletion -decrease toprol to 12.5 mg po daily -Continue Furosemide and spironolactone -Nephrology + cardiology consult appreciated Problems reviewed: Yes Code(s): I95.9 - HYPOTENSION, UNSPECIFIED (8) Bacteremia Assessment/Plan: -Finished rocephin -Repeat BC Problems reviewed: Yes Code(s): R78.81 - BACTEREMIA (9) Right shoulder pain Assessment/Plan: -r/o infectious etiology -Right shoulder Xray -Repeat BC -Pt afebrile Problems reviewed: Yes Code(s): M25.511 - PAIN IN RIGHT SHOULDER Assessment/Plan See problem list Left msg for son Jefferson to call back for pt status
--- NOTE | 2020-02-19 17:37 | PN ---
Progress Note (short form) - Note Progress Note: ID consult dictated imp/reccd asked to see by pmd for right shoulder discomfort right shoulder pain since Tuesday picc line removed today shoulder with effusion, no erythema, some warmth, RUE some warmth along the back of the upper arm last dose rocephin today xray duplex blood cultures ?tap shoulder joint- consider ortho evaluation observe off antibiotics s/p 4 weeks antibioitcs for strep mitis bacteremai chronic anemia livercirrhosis per PMD and GI d/w pmd Problem List - Problems (1) Right shoulder pain Code(s): M25.511 - PAIN IN RIGHT SHOULDER (2) Infection due to Streptococcus mitis group Code(s): A49.1 - STREPTOCOCCAL INFECTION, UNSPECIFIED SITE (3) Cirrhosis of liver with ascites Code(s): K74.60 - UNSPECIFIED CIRRHOSIS OF LIVER; R18.8 - OTHER ASCITES (4) Anemia Code(s): D64.9 - ANEMIA, UNSPECIFIED
--- NOTE | 2020-02-19 17:57 | PN ---
Progress Note, Physician History of Present Illness: Pt seen and examined at bedside. She is awake and alert. She complains of edema. - Current Medication List Current Medications: Active Medications Acetaminophen (Tylenol -) 1,000 mg PO Q6H PRN PRN Reason: FEVER Last Admin: 02/19/20 07:58 Dose: 1,000 mg Documented by: Amino Acids (Prosource No Carb Liquid Pkt) 30 ml PO BIDWM [facility] Last Admin: 02/19/20 17:28 Dose: 30 ml Documented by: Artificial Tears (Artificial Tears) 1 drop OS BID PRN PRN Reason: DRY EYES Furosemide (Lasix -) 40 mg PO BIDLASIX [facility] Last Admin: 02/18/20 14:59 Dose: 40 mg Documented by: Lactulose (Cephulac (Oral Use)) 10 gm PO TID [facility] Last Admin: 02/19/20 13:57 Dose: Not Given Documented by: Metoprolol Succinate (Toprol Xl -) 12.5 mg PO DAILY [facility] Last Admin: 02/19/20 09:50 Dose: 12.5 mg Documented by: Rifaximin (Xifaxan -) 550 mg PO BID [facility] Last Admin: 02/19/20 09:50 Dose: 550 mg Documented by: Spironolactone (Aldactone -) 100 mg PO DAILY [facility] Last Admin: 02/18/20 09:02 Dose: Not Given Documented by: - Objective Vital Signs: Vital Signs Temperature 98 F 02/19/20 14:00 Pulse Rate 68 02/19/20 14:00 Respiratory Rate 20 02/19/20 14:00 Blood Pressure 95/47 L 02/19/20 14:00 O2 Sat by Pulse Oximetry (%) 95 02/19/20 09:00 Constitutional: Yes: Calm Eyes: Yes: Conjunctiva Clear HENT: Yes: Atraumatic Neck: Yes: Supple Cardiovascular: Yes: S1, S2 Respiratory: Yes: CTA Bilaterally Gastrointestinal: Yes: Soft, Abdomen, Obese Genitourinary: Yes: Incontinence Edema: Yes Neurological: Yes: Oriented Psychiatric: Yes: Oriented Labs: CBC, BMP 02/19/20 05:56 02/19/20 05:56 INR, PTT INR 2.04 (0.83-1.09) H 02/17/20 06:26 Assessment/Plan Current Medications Generic Name Dose Route Start Last Admin Trade Name Freq PRN Reason Stop Dose Admin Acetaminophen 1,000 mg 02/16/20 01:36 02/19/20 07:58 Tylenol - PO 1,000 mg Q6H PRN Administration FEVER Amino Acids 30 ml 02/16/20 08:00 02/19/20 17:28 Prosource No Carb Liquid Pkt PO 30 ml BIDWM TAMMY Administration Artificial Tears 1 drop 02/16/20 01:51 Artificial Tears OS BID PRN DRY EYES Furosemide 40 mg 02/16/20 06:00 02/18/20 14:59 Lasix - PO 40 mg BIDLASIX [facility]MY Administration Lactulose 10 gm 02/16/20 06:00 02/19/20 13:57 Cephulac (Oral Use) PO Not Given TID TAMMY Metoprolol Succinate 12.5 mg 02/18/20 12:47 02/19/20 09:50 Toprol Xl - PO 12.5 mg DAILY [facility] Administration Rifaximin 550 mg 02/16/20 10:00 02/19/20 09:50 Xifaxan - PO 550 mg BID T[facility]MY Administration Spironolactone 100 mg 02/16/20 10:00 02/18/20 09:02 Aldactone - PO Not Given DAILY TAMMY Impression 1. BLAINE 2. ascites 3. liver cirrhosis 4. ileus 5. microscopic hematuria 6. sepsis 7. a-fib Plan - renal function starting to improve - monitor bp - will restart diuretics - repeat lab in am - will give albumin - monitor bp - cardio input appreciated - will follow
[2020-02-19] MEDS ORDERED: ALBUMIN HUMAN 25% 100 ML VIAL IVPB ONE (17:58)
--- NOTE | 2020-02-19 21:35 | PN.GI ---
GI Progress Note Subjective: GI NOte: Tolerating solids. NO vomiting. CT reveals no obstruction , ileus or hematoma. There is anasarca with abdominal wall edema and ascites - Objective Vital Signs: Vital Signs Temperature 98.0 F 02/19/20 18:00 Pulse Rate 65 02/19/20 18:00 Respiratory Rate 20 02/19/20 18:00 Blood Pressure 121/48 L 02/19/20 18:00 O2 Sat by Pulse Oximetry (%) 95 02/19/20 09:00 Constitutional: No Distress ...Auscultate: Yes: Normoactive Bowel Sounds ...Palpate: Yes: Soft, Other (nontender) Labs: CBC, BMP 02/19/20 05:56 02/19/20 05:56 INR, PTT INR 2.04 (0.83-1.09) H 02/17/20 06:26 Assessment/Plan Impression: - RLQ pain due to abdominal wall edema . - Her anemia and cirrhosis suggest intermittent bleeidng from portal gastropathy but varices need to be excluded. Will defer until her bactermia clears Plan: - Continue present diet - Panendoscopy when medically feasible - PPI empirically - Continue lactulose, rifaximin, spironolactone and lasix Problem List - Problems (1) Abdominal pain Code(s): R10.9 - UNSPECIFIED ABDOMINAL PAIN (2) Edema of abdominal wall Code(s): R60.0 - LOCALIZED EDEMA (3) 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 steatohepatitis) Code(s): K75.81 - NONALCOHOLIC STEATOHEPATITIS (KING); K74.60 - UNSPECIFIED CIRRHOSIS OF LIVER (4) Cirrhosis of liver with ascites Code(s): K74.60 - UNSPECIFIED CIRRHOSIS OF LIVER; R18.8 - OTHER ASCITES (5) Paroxysmal atrial fibrillation with rapid ventricular response Code(s): I48.0 - PAROXYSMAL ATRIAL FIBRILLATION (6) Acute on chronic kidney failure Code(s): N17.9 - ACUTE KIDNEY FAILURE, UNSPECIFIED; N18.9 - CHRONIC KIDNEY DISEASE, UNSPECIFIED (7) Bleeding from PICC line Code(s): T82.838A - HEMORRHAGE DUE TO VASCULAR PROSTH DEV/GRFT, INIT Qualifiers: Encounter type: subsequent encounter Qualified Code(s): T82.838D - Hemorrhage due to vascular prosthetic devices, implants and grafts, subsequent encounter (8) Hepatic encephalopathy Code(s): K72.90 - HEPATIC FAILURE, UNSPECIFIED WITHOUT COMA (9) Infection due to Streptococcus mitis group Code(s): A49.1 - STREPTOCOCCAL INFECTION, UNSPECIFIED SITE
[2020-02-19] MEDS: SPIRONOLACTONE 25 MG TABLET PO SCH (22:16)
[2020-02-20] MEDS: LACTULOSE 20 GM/30 ML UDC (FOR ORAL USE ONLY) PO SCH ×4 (05:54→21:55)
[2020-02-20 07:47] LABS: BASO % 0.8 % (0-2.0); EOS % 6.6 % (0-4.5); HEMOGLOBIN 7.6 GM/dL (10.7-15.3); LYMPH % 24.6 % (8-40); MCHC 31.8 g/dl (32.0-36.0); MEAN CELL VOLUME 91.3 fl (80-96); MONO % 13.1 % (3.8-10.2); NEUT % 54.9 % (42.8-82.8); PLATELET COUNT 65 K/MM3 (134-434); RBC 2.63 M/mm3 (3.60-5.2); RDW 18.6 % (11.6-15.6); WHITE BLOOD COUNT 5.5 K/mm3 (4.0-10.0)
[2020-02-20 07:52] LABS: BILIRUBIN,TOTAL 1.5 mg/dL (0.2-1); POTASSIUM 3.8 mmol/L (3.5-5.1); TOT PROT 6.4 g/dl (6.4-8.2)
[2020-02-20 08:05] LABS: CREATININE 1.6 mg/dL (0.55-1.3)
[2020-02-20] MEDS ORDERED: ACETAMINOPHEN 500 MG TABLET (FP) PO PRN (08:21)
[2020-02-20] MEDS ORDERED: ARTIFICIAL TEARS (POLYVINYL ALCOHOL) OPTH DROPS OS PRN (08:21)
--- NOTE | 2020-02-20 09:22 | PN ---
Progress Note, Physician History of Present Illness: 74 year-old woman with a PMHx of HTN, HLD, chronic diastolic CHF, cirrhosis, ascites, venous insufficiency, and h/o portal vein thrombosis in past recent admission for sepsis and bacteremia, PAF with RVR on Eliquis, now admitted with leak from PICC line, worsening renal insufficiency and PAF, hypotension with no symptoms. She is done with her abx course for strep mitis. She has been having overnight shoulder swelling and pain on the side of the PICC line. She has been off of eliquis due to leak and awaiting removal. Echocardiogram 01/23/20: Normal LV size, wall motion and systolic function. LVEF 62%. Abnormal diastolic relaxation. Normal RV. Moderate to severe LA dilatation. No significant valve disease. PASP 28 mmHg - Current Medication List Current Medications: Active Medications Acetaminophen (Tylenol -) 1,000 mg PO Q6H PRN PRN Reason: FEVER Artificial Tears (Artificial Tears) 1 drop OS BID PRN PRN Reason: DRY EYES Furosemide (Lasix -) 40 mg PO DAILY [facility] Lactulose (Cephulac (Oral Use)) 10 gm PO TID [facility] Metoprolol Succinate (Toprol Xl -) 12.5 mg PO DAILY [facility] Last Admin: 02/19/20 09:50 Dose: 12.5 mg Documented by: Spironolactone (Aldactone -) 25 mg PO BID [facility] Last Admin: 02/19/20 22:16 Dose: 25 mg Documented by: - Objective Vital Signs: Vital Signs Temperature 97.8 F 02/20/20 08:37 Pulse Rate 78 02/20/20 08:37 Respiratory Rate 18 02/20/20 08:37 Blood Pressure 95/57 L 02/20/20 08:37 O2 Sat by Pulse Oximetry (%) 95 02/19/20 21:00 Constitutional: Yes: No Distress, Calm Eyes: Yes: Conjunctiva Clear, EOM Intact HENT: Yes: Atraumatic, Normocephalic Neck: Yes: Trachea Midline Cardiovascular: Yes: Regular Rate and Rhythm Respiratory: Yes: CTA Bilaterally Gastrointestinal: Yes: Ascites, Distention Musculoskeletal: Yes: WNL Edema: Yes Edema: LLE: 3+, RLE: 3+ Peripheral Pulses WNL: Yes Labs: CBC, BMP 02/20/20 06:00 02/20/20 07:20 INR, PTT INR 2.04 (0.83-1.09) H 02/17/20 06:26 Assessment/Plan 74 year-old woman with a PMHx of HTN, HLD, chronic diastolic CHF, cirrhosis, ascites, venous insufficiency, and h/o portal vein thrombosis in past recent admission for sepsis and bacteremia, PAF with RVR deemed not an AC candidate, now admitted with leak from PICC line, worsening renal insufficiency and PAF, hypotension with no symptoms. Echocardiogram 01/23/20: Normal LV size, wall motion and systolic function. LVEF 62%. Abnormal diastolic relaxation. Normal RV. Moderate to severe LA dilatation. No significant valve disease. PASP 28 mmHg Plan -telemetry shows all nsr at present. -continue monitoring. -no need for repeat studies. -hypotension is likely due to her shunting and cirrhosis from liver disease. no evidence of cardiac source. -restart AC with eliquis when stable. -continue low dose beta dana. -continue lasix and aldactone. renal appreciated. -will follow with you.
[2020-02-20] MEDS: AMINO ACIDS/PROTEIN HYDROLYS 30 ML LIQUID.PKT PO SCH (09:40)
--- NOTE | 2020-02-20 09:41 | CONSULT ---
- Consultation REQUESTING PROVIDER: Myke Sanchez SHEET FOLDER CONSULT REQUEST: We have been asked to surgically evaluate this patient for ileus seen on abdominal imaging (abdominal xray done for ?? RLQ pain ). PCP:Gerhard Carson HISTORY OF PRESENT ILLNESS: NGUYỄN who is a 74 y/o F from [facility] who presented for bleeding from a RUE PICC line insertion; while here dx. testing was done ad I was asked to see her; she has no abdominal c/o's and is eating dinner. CT scan of the a/p was done showing ascites and no evidence of intestinal obstruction. She has had paracentesis in the past. PMHx: cirrhosis/HFpEF/A fib/CKD PSHx: Home Medications Medication Instructions Recorded Acetaminophen [Tylenol 1,000 mg PO Q6H PRN #240 tablet 01/31/20 .Extra-Strength -] Amino Acids/Protein Hydrolys 30 ml PO BID #1800 ml 01/31/20 [Prosource No Carb Liquid Pkt] Ceftriaxone [Rocephin -] 2 gm IVPB DAILY vial 01/31/20 Furosemide [Lasix -] 40 mg PO BID #60 tablet 01/31/20 Lactulose 10 gm PO TID #1350 ml 01/31/20 Spironolactone [Aldactone -] 100 mg PO DAILY #30 tablet 01/31/20 Apixaban [Eliquis -] 2.5 mg PO BID #60 tablet 02/01/20 Metoprolol Succinate [Toprol XL -] 25 mg PO DAILY #30 tab.sr.24h 02/01/20 Ceftriaxone [Rocephin -] 2 gm IVPB DAILY vial 02/05/20 Rifaximin [Xifaxan] 550 mg PO BID #60 tablet 02/05/20 Allergies Allergy/AdvReac Type Severity Reaction Status Date / Time No Known Allergies Allergy Verified 02/15/20 23:02 REVIEW OF SYSTEMS: CONSTITUTIONAL: Present: fever, chills, diaphoresis, generalized weakness, malaise, loss of appetite, weight change CARDIOVASCULAR: Absent: chest pain, syncope, palpitations, irregular heart rate, lightheadedness, peripheral edema RESPIRATORY: Absent: cough, shortness of breath, dyspnea with exertion, wheezing, stridor, hemoptysis GASTROINTESTINAL: Present: abdominal pain, abdominal distension, nausea, vomiting, Absent: diarrhea, constipation, melena, hematochezia GENITOURINARY: Absent: dysuria, frequency, urgency, hesitancy, hematuria, flank pain, genital pain MUSCULOSKELETAL: Absent: myalgia, arthralgia, joint swelling, back pain, neck pain SKIN: Absent: rash, itching, pallor HEMATOLOGIC/IMMUNOLOGIC: Absent: easy bleeding, easy bruising, lymphadenopathy NEUROLOGIC: Absent: headache, focal weakness, paresthesias, dizziness, unsteady gait, seizure. Present: mental status changes, bladder or bowel incontinence PSYCHIATRIC: Absent: anxiety, depression, suicidal or homicidal ideation, hallucinations. PHYSICAL EXAM: GENERAL: Awake, alert, and fully oriented, in no acute distress. HEAD: Normal with no signs of trauma. EYES: PERRL, sclera anicteric, conjunctiva clear. NECK: Normal ROM, supple without lymphadenopathy, JVD, or masses. ABDOMEN: Obese; Soft, nontender, not distended, normoactive bowel sounds, no guarding, no rebound, no masses. No organomegaly. No hernias and positive fluid wave; o/w negative. MUSCULOSKELETAL: Normal ROM at all joints. No bony deformities or tenderness. No CVA tenderness. UPPER EXTREMITIES: 2+ pulses, warm, well-perfused. No cyanosis. Cap refill <2 seconds. No peripheral edema. LOWER EXTREMITIES: 2+ pulses, warm, well-perfused. No calf tenderness. No peripheral edema. NEUROLOGICAL: Normal speech, gait not observed. PSYCH: Cooperative. Good eye contact. Appropriate mood and affect. SKIN: Warm, dry, normal turgor, no rashes or lesions noted. Vital Signs Temperature 97.8 F 02/20/20 08:37 Pulse Rate 78 02/20/20 08:37 Respiratory Rate 18 02/20/20 08:37 Blood Pressure 95/57 L 02/20/20 08:37 O2 Sat by Pulse Oximetry (%) 95 02/19/20 21:00 Lab Results WBC 5.5 K/mm3 (4.0-10.0) 02/20/20 06:00 RBC 2.63 M/mm3 (3.60-5.2) L 02/20/20 06:00 Hgb 7.6 GM/dL (10.7-15.3) L 02/20/20 06:00 Hct 24.0 % (32.4-45.2) L 02/20/20 06:00 MCV 91.3 fl (80-96) 02/20/20 06:00 MCHC 31.8 g/dl (32.0-36.0) L 02/20/20 06:00 RDW 18.6 % (11.6-15.6) H 02/20/20 06:00 Plt Count 65 K/MM3 (134-434) L 02/20/20 06:00 INR 2.04 (0.83-1.09) H 02/17/20 06:26 Sodium 138 mmol/L (136-145) 02/20/20 07:20 Potassium 3.8 mmol/L (3.5-5.1) 02/20/20 07:20 Chloride 102 mmol/L (98-107) 02/20/20 07:20 Carbon Dioxide 29 mmol/L (21-32) 02/20/20 07:20 Anion Gap 7 MMOL/L (8-16) L 02/20/20 07:20 BUN 23.0 mg/dL (7-18) H 02/20/20 07:20 Creatinine 1.6 mg/dL (0.55-1.3) H 02/20/20 07:20 Random Glucose 75 mg/dL (74-106) 02/20/20 07:20 Calcium 8.0 mg/dL (8.5-10.1) L 02/20/20 07:20 Imaging w/u reviewed. IMP: no evidence of an acute surgical abdomen; specifically ileus and/or bowel obstruction. PLAN: PRN surgical f/u; management as per primary team. Elvis Wilcox MD FACS
[2020-02-20] MEDS: FUROSEMIDE 40 MG TABLET (FP) PO SCH (09:44)
[2020-02-20] MEDS: SPIRONOLACTONE 25 MG TABLET PO SCH ×2 (09:44→21:47)
--- NOTE | 2020-02-20 09:50 | PN ---
Progress Note, Physician - Current Medication List Current Medications: Active Medications Acetaminophen (Tylenol -) 1,000 mg PO Q6H PRN PRN Reason: FEVER Artificial Tears (Artificial Tears) 1 drop OS BID PRN PRN Reason: DRY EYES Furosemide (Lasix -) 40 mg PO DAILY [facility] Last Admin: 02/20/20 09:44 Dose: 40 mg Documented by: Lactulose (Cephulac (Oral Use)) 10 gm PO TID [facility] Metoprolol Succinate (Toprol Xl -) 12.5 mg PO DAILY [facility] Last Admin: 02/19/20 09:50 Dose: 12.5 mg Documented by: Spironolactone (Aldactone -) 25 mg PO BID [facility] Last Admin: 02/20/20 09:44 Dose: 25 mg Documented by: - Objective Vital Signs: Vital Signs Temperature 97.8 F 02/20/20 08:37 Pulse Rate 78 02/20/20 08:37 Respiratory Rate 18 02/20/20 08:37 Blood Pressure 95/57 L 02/20/20 08:37 O2 Sat by Pulse Oximetry (%) 95 02/19/20 21:00 Cardiovascular: Yes: Regular Rate and Rhythm Respiratory: Yes: Regular, CTA Bilaterally Gastrointestinal: Yes: Normal Bowel Sounds, Soft, Ascites, Distention Labs: CBC, BMP 02/20/20 06:00 02/20/20 07:20 INR, PTT INR 2.04 (0.83-1.09) H 02/17/20 06:26 Assessment/Plan - Problems (1) Acute on chronic kidney failure Assessment/Plan: -Nephrology consult -Baseline Cr at 1.5 -Monitor trend Problems reviewed: Yes Code(s): N17.9 - ACUTE KIDNEY FAILURE, UNSPECIFIED; N18.9 - CHRONIC KIDNEY DISEASE, UNSPECIFIED (2) Bleeding from PICC line Assessment/Plan: -remove PICC line Problems reviewed: Yes Code(s): T82.838A - HEMORRHAGE DUE TO VASCULAR PROSTH DEV/GRFT, INIT Qualifiers: Encounter type: subsequent encounter Qualified Code(s): T82.838D - He morrhage due to vascular prosthetic devices, implants and grafts, subsequent encounter (3) Afib--now sinus Assessment/Plan: -Hold Eliquis 2.5 mg po bid -Rate controlled -Tele monitoring--cardio folllow up noted Problems reviewed: Yes Code(s): I48.91 - UNSPECIFIED ATRIAL FIBRILLATION (4) Anemia Assessment/Plan: -Chronic 2/2 to cirrhosis, CKD -Iron + B 12 profile normal -Stool OB negative 01/23/20 -monitor labs -Gi consult noted endoscopy if pt agrees -transfuse only if Hg<7.0 Problems reviewed: Yes Code(s): D64.9 - ANEMIA, UNSPECIFIED (5) Ascites Problems reviewed: Yes Code(s): R18.8 - OTHER ASCITES Qualifiers: Ascites type: other type Qualified Code(s): R18.8 - Other ascites (6) Cryptogenic cirrhosis Assessment/Plan: -Continue lactulose + rifaxamine Problems reviewed: Yes Code(s): K74.69 - OTHER CIRRHOSIS OF LIVER (7) Hypotension Assessment/Plan: -2/2 to liver disease -pt asymptomatic -D/C IVF, no signs of volume depletion -decrease toprol to 12.5 mg po daily -Continue Furosemide and spironolactone -Nephrology + cardiology consult appreciated Problems reviewed: Yes Code(s): I95.9 - HYPOTENSION, UNSPECIFIED (8) Bacteremia Assessment/Plan: -Finished rocephin -Repeat BC Problems reviewed: Yes Code(s): R78.81 - BACTEREMIA (9) Right shoulder pain Assessment/Plan: -r/o infectious etiology -Right shoulder Xray -Repeat BC -Pt afebrile Problems reviewed: Yes Code(s): M25.511 - PAIN IN RIGHT SHOULDER
--- NOTE | 2020-02-20 10:56 | PN.GI ---
GI Progress Note Subjective: GI Note: Tolerating diet but appetite poor. Has dull RLQ pain with persistent edema in the wall. Diuretics resumed by Dr Ramesh. No overt bleeding but Hb dwindling. Does not want colonoscopy. Will think about EGD - Objective Vital Signs: Vital Signs Temperature 97.8 F 02/20/20 08:37 Pulse Rate 78 02/20/20 08:37 Respiratory Rate 18 02/20/20 08:37 Blood Pressure 95/57 L 02/20/20 08:37 O2 Sat by Pulse Oximetry (%) 95 02/19/20 21:00 Laboratory Tests 02/16/20 02/17/20 02/19/20 00:20 06:26 05:56 Hgb 7.6 L 8.5 L BUN Creatinine Iron 122 TIBC 113 L Total Bilirubin 2.2 H Tumor Marker AFP 02/19/20 02/20/20 02/20/20 05:56 06:00 07:20 Hgb 7.6 L BUN 23.0 H Creatinine 1.6 H Iron TIBC Total Bilirubin 1.5 H Tumor Marker AFP 2.0 Constitutional: Calm ...Auscultate: Yes: Normoactive Bowel Sounds ...Palpate: Yes: Soft, Tenderness (mild RLQ tenderness within edematous abdominal wall) Labs: CBC, BMP 02/20/20 06:00 02/20/20 07:20 INR, PTT INR 2.04 (0.83-1.09) H 02/17/20 06:26 Assessment/Plan Impression: - RLQ pain due to abdominal wall edema . - Her anemia and cirrhosis suggest intermittent bleeidng from portal gastropathy but varices need to be excluded. Will defer until her bactermia clears Plan: - Continue present diet - Panendoscopy when medically feasible and if patient consents - PPI empirically - Continue lactulose, rifaximin, spironolactone and lasix Problem List - Problems (1) Abdominal pain Code(s): R10.9 - UNSPECIFIED ABDOMINAL PAIN (2) Edema of abdominal wall Code(s): R60.0 - LOCALIZED EDEMA (3) 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 steatohepatitis) Code(s): K75.81 - NONALCOHOLIC STEATOHEPATITIS (KING); K74.60 - UNSPECIFIED CIRRHOSIS OF LIVER (4) Cirrhosis of liver with ascites Code(s): K74.60 - UNSPECIFIED CIRRHOSIS OF LIVER; R18.8 - OTHER ASCITES (5) Paroxysmal atrial fibrillation with rapid ventricular response Code(s): I48.0 - PAROXYSMAL ATRIAL FIBRILLATION (6) Acute on chronic kidney failure Code(s): N17.9 - ACUTE KIDNEY FAILURE, UNSPECIFIED; N18.9 - CHRONIC KIDNEY DISEASE, UNSPECIFIED (7) Bleeding from PICC line Code(s): T82.838A - HEMORRHAGE DUE TO VASCULAR PROSTH DEV/GRFT, INIT Qualifiers: Encounter type: subsequent encounter Qualified Code(s): T82.838D - Hemorrhage due to vascular prosthetic devices, implants and grafts, subsequent encounter (8) Hepatic encephalopathy Code(s): K72.90 - HEPATIC FAILURE, UNSPECIFIED WITHOUT COMA (9) Infection due to Streptococcus mitis group Code(s): A49.1 - STREPTOCOCCAL INFECTION, UNSPECIFIED SITE
[2020-02-20] MEDS: metoPROLOL SUCCINATE 25 MG TAB.SR.24H (FP) PO SCH (12:10)
--- NOTE | 2020-02-20 13:07 | PN ---
Progress Note, Physician History of Present Illness: Pt seen and examined at bedside. She is awake and alert. She denies shortness of breath. - Current Medication List Current Medications: Active Medications Acetaminophen (Tylenol -) 1,000 mg PO Q6H PRN PRN Reason: FEVER Artificial Tears (Artificial Tears) 1 drop OS BID PRN PRN Reason: DRY EYES Furosemide (Lasix -) 40 mg PO DAILY [facility] Last Admin: 02/20/20 09:44 Dose: 40 mg Documented by: Lactulose (Cephulac (Oral Use)) 10 gm PO TID [facility] Metoprolol Succinate (Toprol Xl -) 12.5 mg PO DAILY [facility] Last Admin: 02/20/20 12:10 Dose: 12.5 mg Documented by: Spironolactone (Aldactone -) 25 mg PO BID [facility] Last Admin: 02/20/20 09:44 Dose: 25 mg Documented by: - Objective Vital Signs: Vital Signs Temperature 97.8 F 02/20/20 08:37 Pulse Rate 78 02/20/20 08:37 Respiratory Rate 18 02/20/20 09:00 Blood Pressure 95/57 L 02/20/20 08:37 O2 Sat by Pulse Oximetry (%) 95 02/20/20 09:00 Constitutional: Yes: Calm Eyes: Yes: Conjunctiva Clear HENT: Yes: Atraumatic Neck: Yes: Supple Cardiovascular: Yes: S1, S2 Respiratory: Yes: CTA Bilaterally Gastrointestinal: Yes: Normal Bowel Sounds, Soft, Ascites Edema: Yes Edema: LLE: 1+, RLE: 1+ Neurological: Yes: Oriented Psychiatric: Yes: Oriented Labs: CBC, BMP 02/20/20 06:00 02/20/20 07:20 INR, PTT INR 2.04 (0.83-1.09) H 02/17/20 06:26 Assessment/Plan Current Medications Generic Name Dose Route Start Last Admin Trade Name Freq PRN Reason Stop Dose Admin Acetaminophen 1,000 mg 02/20/20 08:21 Tylenol - PO Q6H PRN FEVER Artificial Tears 1 drop 02/20/20 08:21 Artificial Tears OS BID PRN DRY EYES Furosemide 40 mg 02/20/20 10:00 02/20/20 09:44 Lasix - PO 40 mg DAILY [facility] Administration Lactulose 10 gm 02/20/20 14:00 Cephulac (Oral Use) PO TID TAMMY Metoprolol Succinate 12.5 mg 02/18/20 12:47 02/20/20 12:10 Toprol Xl - PO 12.5 mg DAILY [facility] Administration Spironolactone 25 mg 02/19/20 22:00 02/20/20 09:44 Aldactone - PO 25 mg BID TAMMY Administration Impression 1. BLAINE 2. ascites 3. liver cirrhosis 4. ileus 5. microscopic hematuria 6. sepsis 7. a-fib Plan - cont lasix - cont aldactone - monitor lytes - repeat labs in am - cont to monitor bp - if she gets hypotensive consider midodrine - GI follow up - will follow
--- NOTE | 2020-02-20 17:55 | PN ---
Progress Note (short form) - Note Progress Note: arm is improved less swelling uring her arm to talk on the phone duplex negative xray with degenerative changes Vital Signs Period Temp Pulse Resp BP Sys/Patel Pulse Ox Last 24 Hr 97.8 F-98.0 F 65-78 18-20 95-121/48-57 95-95 cor-rrr lungs clear less swelling of thr right shoulder, arm swelling resolved no erythema CBC, BMP 02/20/20 06:00 02/20/20 07:20 Microbiology 02/19/20 17:10 Blood - Peripheral Venous Blood Culture - Preliminary NO GROWTH OBTAINED AFTER 24 HOURS, INCUBATION TO CONTINUE FOR 4 DAYS. 02/19/20 16:45 Blood - Peripheral Venous Blood Culture - Preliminary NO GROWTH OBTAINED AFTER 24 HOURS, INCUBATION TO CONTINUE FOR 4 DAYS. a/p arm improved with removal of picc line has completed 28 days of rocephin for strep mitis bacteremia rest per pmd please call back if needed
--- NOTE | 2020-02-20 18:52 | CONS ---
DATE OF CONSULTATION: DATE OF DICTATION: 02/20/2020 INFECTIOUS DISEASE CONSULTATION HISTORY OF PRESENT ILLNESS: This is a 74-year-old woman who was recently hospitalized with sepsis and strep mitis bacteremia. Source of bacteremia was not clear. She had a paracentesis after several days of antibiotics due to an underlying coagulopathy from her liver cirrhosis. Bacteremia cleared. Repeat cultures were negative. She was discharged with a PICC line to complete 28 days of ceftriaxone. She had some issues with bleeding from the PICC line site. She is now admitted on the with bleeding again from the PICC line site. She had no other complaints, though she reports since Tuesday when she was admitted, she had pain in the right arm. I am asked to see her for the right arm pain. The PICC line was just removed. She denies any fevers or chills and has been well in the hospital. PAST MEDICAL HISTORY: Notable for liver cirrhosis, heart failure, atrial fibrillation on Eliquis, CKD, venous insufficiency. SURGICAL HISTORY: Unremarkable. SOCIAL HISTORY: No history of cigarette, alcohol, or substance use. ALLERGIES: No known drug allergies. MEDICATION: Include Lasix, lactulose, Aldactone, Eliquis, Toprol, and rifaximin. 28 days of ceftriaxone has been completed. PHYSICAL EXAMINATION: General: She is awake and alert. She has been afebrile. Vital Signs: Temperature of 98, pulse of 68, blood pressure 105/51, respiratory rate 20, saturating 95% on room air. HEENT: Normocephalic. Eyes are anicteric. Neck: Supple. Lungs: Clear to auscultation. Heart: Regular rate and rhythm. Abdomen: Soft. Positive subcutaneous edema. Extremities: Without edema. Her right arm: She has small effusion in her right shoulder. There is no erythema. She notes some discomfort in her right upper arm as well. There is no erythema of this area as well. It is mildly warm. LABORATORY: White count is 5.7, hemoglobin 7.7, platelets 66. INR is 2, BUN and creatinine are 21 and 1.7 with a bilirubin at 2.2, AST at 39, alkaline phosphatase of 86. COVID serology is negative. Case was discussed with primary provider. She appears to have a small effusion in the right shoulder without any erythema, some warmth of the right upper extremity as well without any erythema. Her last dose of Rocephin was today. Would obtain an x-ray and duplex to rule out DVT. Would obtain blood cultures. If the effusion persists, consider arthrocentesis. would observe off antibiotics. Rest of the management per PMD for her chronic anemia and liver cirrhosis. SUE BARRY M.D. [id number] [facility]
[2020-02-21] MEDS: LACTULOSE 20 GM/30 ML UDC (FOR ORAL USE ONLY) PO SCH ×2 (06:31→15:00)
[2020-02-21 07:04] LABS: BASO % 0.7 % (0-2.0); HEMATOCRIT 23.4 % (32.4-45.2); HEMOGLOBIN 7.5 GM/dL (10.7-15.3); MCH 29.2 pg (25.7-33.7); MCHC 31.9 g/dl (32.0-36.0); MEAN CELL VOLUME 91.4 fl (80-96); MEAN PLT VOLUME 9.9 fl (7.5-11.1); MONO % 12.9 % (3.8-10.2); NEUT % 56.4 % (42.8-82.8); PLATELET COUNT 67 K/MM3 (134-434); RBC 2.56 M/mm3 (3.60-5.2); RDW 18.4 % (11.6-15.6); WHITE BLOOD COUNT 5.2 K/mm3 (4.0-10.0)
[2020-02-21 07:16] LABS: BLOOD UREA NITROGEN 21.9 mg/dL (7-18); CALCIUM 8.3 mg/dL (8.5-10.1); CREATININE 1.6 mg/dL (0.55-1.3); POTASSIUM 3.9 mmol/L (3.5-5.1)
[2020-02-21 08:13] VITALS: BP 104/56; PULSE 79; TEMP 98.2
--- NOTE | 2020-02-21 09:04 | DS ---
Physical Examination Vital Signs: Vital Signs Temperature 98.2 F 02/21/20 08:11 Pulse Rate 79 02/21/20 08:11 Respiratory Rate 20 02/21/20 08:13 Blood Pressure 104/56 L 02/21/20 08:11 O2 Sat by Pulse Oximetry (%) 96 02/21/20 08:13 Cardiovascular: Yes: Regular Rate and Rhythm Respiratory: Yes: Regular, CTA Bilaterally Gastrointestinal: Yes: Normal Bowel Sounds, Soft, Ascites Labs: CBC, BMP 02/21/20 05:42 02/21/20 05:42 Discharge Summary Problems reviewed: Yes Reason For Visit: BLEEDING FROM PERIPHERALLY INSERTED CENTRAL Current Active Problems Acute on chronic kidney failure (Acute) Bleeding from PICC line (Acute) Cirrhosis of liver with ascites (Acute) Edema of abdominal wall (Acute) Infection due to Streptococcus mitis group (Acute) 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 steatohepatitis) (Acute) Paroxysmal atrial fibrillation with rapid ventricular response (Acute) Right shoulder pain (Acute) Hospital Course: - Problems (1) Acute on chronic kidney failure Assessment/Plan: -Nephrology consult -Baseline Cr at 1.5 -Monitor trend Problems reviewed: Yes Code(s): N17.9 - ACUTE KIDNEY FAILURE, UNSPECIFIED; N18.9 - CHRONIC KIDNEY DISEASE, UNSPECIFIED (2) Bleeding from PICC line Assessment/Plan: -remove PICC line Problems reviewed: Yes Code(s): T82.838A - HEMORRHAGE DUE TO VASCULAR PROSTH DEV/GRFT, INIT Qualifiers: Encounter type: subsequent encounter Qualified Code(s): T82.838D - Hemorrhage due to vascular prosthetic devices, implants and grafts, subsequent encounter (3) Afib--now sinus Assessment/Plan: -Resume Eliquis 2.5 mg po bid -Rate controlled -Tele monitoring--cardio folllow up noted Problems reviewed: Yes Code(s): I48.91 - UNSPECIFIED ATRIAL FIBRILLATION (4) Anemia Assessment/Plan: -Chronic 2/2 to cirrhosis, CKD -Iron + B 12 profile normal -Stool OB negative 01/23/20 -monitor labs -Gi consult noted endoscopy if pt agrees -transfuse only if Hg<7.0 Problems reviewed: Yes Code(s): D64.9 - ANEMIA, UNSPECIFIED (5) Ascites Problems reviewed: Yes Code(s): R18.8 - OTHER ASCITES Qualifiers: Ascites type: other type Qualified Code(s): R18.8 - Other ascites (6) Cryptogenic cirrhosis Assessment/Plan: -Continue lactulose + rifaxamine Problems reviewed: Yes Code(s): K74.69 - OTHER CIRRHOSIS OF LIVER (7) Hypotension Assessment/Plan: -2/2 to liver disease -pt asymptomatic -D/C IVF, no signs of volume depletion -decrease toprol to 12.5 mg po daily -Continue Furosemide and spironolactone -Nephrology + cardiology consult appreciated Problems reviewed: Yes Code(s): I95.9 - HYPOTENSION, UNSPECIFIED (8) Bacteremia Assessment/Plan: -Finished rocephin -Repeat BC Problems reviewed: Yes Code(s): R78.81 - BACTEREMIA (9) Right shoulder pain Assessment/Plan: -r/o infectious etiology -Right shoulder Xray -Repeat BC -Pt afebrile Problems reviewed: Yes Code(s): M25.511 - PAIN IN RIGHT SHOULDER Condition: Good - Instructions Diet, Activity, Other Instructions: cbc and cmp every tuesday Referrals: Gatito Lieberman MD, MD [Primary Care Provider] - - Home Medications Comprehensive Discharge Medication List: Ambulatory Orders Acetaminophen [Tylenol .Extra-Strength -] 1,000 mg PO Q6H PRN #240 tablet 01/31/20 Amino Acids/Protein Hydrolys [Prosource No Carb Liquid Pkt] 30 ml PO BID #1800 ml 01/31/20 Lactulose 10 gm PO TID #1350 ml 01/31/20 Metoprolol Succinate [Toprol XL -] 25 mg PO DAILY #30 tab.sr.24h 02/01/20 Rifaximin [Xifaxan] 550 mg PO BID #60 tablet 02/05/20 Apixaban [Eliquis -] 2.5 mg PO BID #60 tablet 02/21/20 Furosemide [Lasix -] 40 mg PO DAILY tablet 02/21/20 Polyvinyl Alcohol [Artificial Tears] 1 drop OS BID PRN drops 02/21/20 Spironolactone [Aldactone -] 25 mg PO BID tablet 02/21/20
[2020-02-21] MEDS: FUROSEMIDE 40 MG TABLET (FP) PO SCH (09:29)
[2020-02-21] MEDS: SPIRONOLACTONE 25 MG TABLET PO SCH (09:29)
[2020-02-21] MEDS: metoPROLOL SUCCINATE 25 MG TAB.SR.24H (FP) PO SCH (09:29)
--- NOTE | 2020-02-21 10:31 | PN ---
Progress Note, Physician Chief Complaint: improving tele neg History of Present Illness: 74 year-old woman with a PMHx of HTN, HLD, chronic diastolic CHF, cirrhosis, ascites, venous insufficiency, and h/o portal vein thrombosis in past recent admission for sepsis and bacteremia, PAF with RVR on Eliquis, now admitted with leak from PICC line, worsening renal insufficiency and PAF, hypotension with no symptoms. She is done with her abx course for strep mitis. Echocardiogram 01/23/20: Normal LV size, wall motion and systolic function. LVEF 62%. Abnormal diastolic relaxation. Normal RV. Moderate to severe LA dilatation. No significant valve disease. PASP 28 mmHg - Current Medication List Current Medications: Active Medications Acetaminophen (Tylenol -) 1,000 mg PO Q6H PRN PRN Reason: FEVER Artificial Tears (Artificial Tears) 1 drop OS BID PRN PRN Reason: DRY EYES Furosemide (Lasix -) 40 mg PO DAILY [facility] Last Admin: 02/21/20 09:29 Dose: 40 mg Documented by: Lactulose (Cephulac (Oral Use)) 10 gm PO TID [facility] Last Admin: 02/21/20 06:31 Dose: 10 gm Documented by: Metoprolol Succinate (Toprol Xl -) 12.5 mg PO DAILY [facility] Last Admin: 02/21/20 09:29 Dose: 12.5 mg Documented by: Spironolactone (Aldactone -) 25 mg PO BID [facility] Last Admin: 02/21/20 09:29 Dose: 25 mg Documented by: - Objective Vital Signs: Vital Signs Temperature 98.2 F 02/21/20 08:11 Pulse Rate 79 02/21/20 08:11 Respiratory Rate 20 02/21/20 08:13 Blood Pressure 104/56 L 02/21/20 08:11 O2 Sat by Pulse Oximetry (%) 96 02/21/20 08:13 Constitutional: Yes: No Distress Eyes: Yes: Conjunctiva Clear, EOM Intact HENT: Yes: Atraumatic, Normocephalic Neck: Yes: Supple, Trachea Midline Cardiovascular: Yes: Regular Rate and Rhythm Respiratory: Yes: CTA Bilaterally Gastrointestinal: Yes: Normal Bowel Sounds, Soft, Ascites Edema: Yes Edema: LLE: 3+, RLE: 3+ Peripheral Pulses WNL: Yes Labs: CBC, BMP 02/21/20 05:42 02/21/20 05:42 INR, PTT INR 2.04 (0.83-1.09) H 02/17/20 06:26 Assessment/Plan 74 year-old woman with a PMHx of HTN, HLD, chronic diastolic CHF, cirrhosis, ascites, venous insufficiency, and h/o portal vein thrombosis in past recent admission for sepsis and bacteremia, PAF with RVR deemed not an AC candidate, now admitted with leak from PICC line, worsening renal insufficiency and PAF, hypotension with no symptoms. Echocardiogram 01/23/20: Normal LV size, wall motion and systolic function. LVEF 62%. Abnormal diastolic relaxation. Normal RV. Moderate to severe LA dilatation. No significant valve disease. PASP 28 mmHg Plan -telemetry shows all nsr at present. -continue monitoring. -no need for repeat studies. -hypotension is likely due to her shunting and cirrhosis from liver disease. no evidence of cardiac source. -restart AC with eliquis when stable. -continue low dose beta dana. -continue lasix and aldactone. renal appreciated. -will follow as needed.
[2020-02-21 10:32] VITALS: BMI 40.3
--- NOTE | 2020-02-21 16:43 | PN ---
Progress Note, Physician History of Present Illness: Pt seen and examined at bedside. She is awake and alert. She denies shortness of breath. - Objective Vital Signs: Vital Signs Temperature 98.2 F 02/21/20 08:11 Pulse Rate 79 02/21/20 08:11 Respiratory Rate 20 02/21/20 08:13 Blood Pressure 104/56 L 02/21/20 08:11 O2 Sat by Pulse Oximetry (%) 96 02/21/20 08:13 Constitutional: Yes: Calm HENT: Yes: Atraumatic Cardiovascular: Yes: S1, S2 Respiratory: Yes: CTA Bilaterally Gastrointestinal: Yes: Soft, Abdomen, Obese Genitourinary: Yes: WNL Musculoskeletal: Yes: WNL Edema: Yes Neurological: Yes: Oriented Labs: CBC, BMP 02/21/20 05:42 02/21/20 05:42 INR, PTT INR 2.04 (0.83-1.09) H 02/17/20 06:26 Assessment/Plan Current Medications Generic Name Dose Route Start Last Admin Trade Name Haileq PRN Reason Stop Dose Admin Acetaminophen 1,000 mg 02/20/20 08:21 Tylenol - PO Q6H PRN FEVER Artificial Tears 1 drop 02/20/20 08:21 Artificial Tears OS BID PRN DRY EYES Furosemide 40 mg 02/20/20 10:00 02/20/20 09:44 Lasix - PO 40 mg DAILY [facility] Administration Lactulose 10 gm 02/20/20 14:00 Cephulac (Oral Use) PO TID [facility] Metoprolol Succinate 12.5 mg 02/18/20 12:47 02/20/20 12:10 Toprol Xl - PO 12.5 mg DAILY [facility] Administration Spironolactone 25 mg 02/19/20 22:00 02/20/20 09:44 Aldactone - PO 25 mg BID [facility] Administration Impression 1. BLAINE 2. ascites 3. liver cirrhosis 4. ileus 5. microscopic hematuria 6. sepsis 7. a-fib Plan - cont diuretics - monitor lytes - will need outpt follow up - discussed with cardio - cont to monitor bp
== END 2020-02-21 15:02 | DRG 315 ==
LOC: JER 22:56 → JERBED 23:23 → UNDOADMIN 02-16 01:10 → JERBED 02-16 01:10 → J7W 02-16 04:31 → J4W 02-18 09:33
PROVIDERS: ADMIT Internal Medicine; ATTEND Family Medicine
DX: T82.838A Hemorrhage due to vascular prosthetic devices, implants and grafts, initial encounter (principal); I50.32 Chronic diastolic (congestive) heart failure; I13.0 Hypertensive heart and chronic kidney disease with heart failure and stage 1 through stage 4 chronic kidney disease, or unspecified chronic kidney disease; D61.818 Other pancytopenia; K76.6 Portal hypertension; K56.7 Ileus, unspecified; Z68.41 Body mass index [BMI] 40.0-44.9, adult; N17.9 Acute kidney failure, unspecified; R18.8 Other ascites; R78.81 Bacteremia; E78.5 Hyperlipidemia, unspecified; Z79.01 Long term (current) use of anticoagulants; N18.9 Chronic kidney disease, unspecified; D63.8 Anemia in other chronic diseases classified elsewhere; K74.69 Other cirrhosis of liver; E66.9 Obesity, unspecified; I95.9 Hypotension, unspecified; R31.29 Other microscopic hematuria; I48.0 Paroxysmal atrial fibrillation; I87.2 Venous insufficiency (chronic) (peripheral); M25.511 Pain in right shoulder; K75.81 Nonalcoholic steatohepatitis (NASH); M25.411 Effusion, right shoulder; Y83.8 Other surgical procedures as the cause of abnormal reaction of the patient, or of later complication, without mention of misadventure at the time of the procedure
CPT/HCPCS: 36415; 73030-TC-RT-FY; 74018-TC-FY; 74176-TC; 80048; 80053; 82105; 82140; 82607; 83540; 83550; 83735; 84100; 85025; 85027; 85044; 85610; 86140; 87040; 93005; 93010; 93971; 99285-25; Q9967; U0003

== ENCOUNTER 2020-03-02 12:22 | Inpatient (IN) | payer OTHER ==
--- NOTE | 2020-03-02 12:56 | PDOC ---
History of Present Illness - General Chief Complaint: Pain Stated Complaint: ABDOMINAL PAIN Time Seen by Provider: 03/02/20 12:40 - History of Present Illness Initial Comments: 74 y/o F from [facility] with PMH cirrhosis, HFpEF, afib on eliquis, CKD, venous insufficiency, presenting today with RLQ abdominal pain and right flank sw elling. She was recently admitted to this hospital last month for altered mental status, hepatic encephalopathy, right arm PICC line infection, presenting today with worsening RLQ abdominal pain for the past week. Pain radiates to the groin. No dysuria. Reports mild chronic diarrhea, is on lactulose. Reports swelling around the right flank extending to the right groin, and bilateral swelling in the lower extremities. No fever. No chills. No chest pain/shortness of breath. No headache/dizziness. No back pain. SurgHx: no abdominal surgeries Past History - Medical History Allergies/Adverse Reactions: Allergies Allergy/AdvReac Type Severity Reaction Status Date / Time No Known Allergies Allergy Verified 03/02/20 12:42 Home Medications: Ambulatory Orders Acetaminophen [Tylenol .Extra-Strength -] 1,000 mg PO Q6H PRN #240 tablet 01/31/20 Amino Acids/Protein Hydrolys [Prosource No Carb Liquid Pkt] 30 ml PO BID #1800 ml 01/31/20 Lactulose 10 gm PO TID #1350 ml 01/31/20 Metoprolol Succinate [Toprol XL -] 25 mg PO DAILY #30 tab.sr.24h 02/01/20 Rifaximin [Xifaxan] 550 mg PO BID #60 tablet 02/05/20 Apixaban [Eliquis -] 2.5 mg PO BID #60 tablet 02/21/20 Furosemide [Lasix -] 40 mg PO DAILY tablet 02/21/20 Polyvinyl Alcohol [Artificial Tears] 1 drop OS BID PRN drops 02/21/20 Spironolactone [Aldactone -] 25 mg PO BID tablet 02/21/20 Ascorbate Calcium [Vitamin C] 500 mg PO DAILY 03/02/20 Folic Acid 1 mg PO DAILY 03/02/20 Oxycodone HCl 5 mg PO BID PRN 03/02/20 Zinc Oxide 1 applic TP BID 03/02/20 Zinc Sulfate 220 mg PO DAILY 03/02/20 Anemia: Yes (Thrombocytopenia) Asthma: No Cancer: No Cardiac Disorders: Yes (Paroxysmal A-fib) CVA: No COPD: No CHF: Yes Dementia: Yes Diabetes: No GI Disorders: Yes (GERD) Disorders: No HTN: Yes Hypercholesterolemia: Yes Liver Disease: Yes (Cirrosis) Psychiatric Problems: Yes (Dementia) Seizures: No Thyroid Disease: No Other medical history: Bacteremia, Cataracts, Morbid obesity, stage 2 buttocks pressure ulcer - Surgical History Abdominal Surgery: No Appendectomy: No Cardiac Surgery: No Cholecystectomy: No Lung Surgery: No Neurologic Surgery: No Orthopedic Surgery: No - Immunization History Immunization Up to Date: Yes - Psycho-Social/Smoking History Smoking Status: No Smoking History: Never smoked Years of Tobacco Use: 10 Have you smoked in the past 12 months: No Number of Cigarettes Smoked Daily: 0 Information on smoking cessation initiated: Yes - Substance Abuse Hx (Audit-C & DAST Scrn) How often the patient has a drink containing alcohol: Never Score: In Men: 4 or > Positive; In Women: 3 or > Positive: 0 Screen Result (Pos requires Nsg. Audit-10AR): Negative Review of Systems - Review of Systems Comments:: GENERAL/CONSTITUTIONAL: No fever or chills. No weakness._ HEAD, EYES, EARS, NOSE AND THROAT: No change in vision. No change in hearing. No sore throat._ CARDIOVASCULAR: No chest pain or shortness of breath_ RESPIRATORY: Denies cough, hemoptysis_ GASTROINTESTINAL: Reports RLQ abdominal pain and right flank swelling. Reports nausea. No vomiting. Reports diarrhea. No constipation._ GENITOURINARY: No dysuria, frequency, or change in urination._ MUSCULOSKELETAL: Reports bilateral lower extremity swelling. No neck or back pain._ SKIN: No rash_ NEUROLOGIC: No headache, vertigo, loss of consciousness, or change in strength/sensation._ ENDOCRINE: No increased thirst. No abnormal weight change_ ALLERGIC/IMMUNOLOGIC: No hives or skin allergy._ *Physical Exam - Vital Signs Last Vital Signs Temp Pulse Resp BP Pulse Ox 97.9 F 63 17 105/46 L 98 03/02/20 12:38 03/02/20 12:38 03/02/20 12:38 03/02/20 12:38 03/02/20 12:38 - Physical Exam GENERAL: Awake, alert, and oriented to person/place/time, in no acute distress_ HEAD: No signs of trauma, normocephalic, atraumatic _ EYES: PERRLA, EOMI, sclera anicteric, conjunctiva clear_ ENT: Hearing grossly normal, nares patent, oropharynx clear without exudates. No uvular deviation. Moist mucosa_ NECK: Normal ROM, supple, no lymphadenopathy, or masses. Mildly distended JVD. LUNGS: No distress, speaks in full sentences, clear to auscultation bilaterally _ HEART: Regular rate and rhythm, normal S1 and S2, no murmurs appreciated, peripheral pulses normal and equal bilaterally._ ABDOMEN: Soft, TTP right flank and RLQ, normoactive bowel sounds. No guarding, no rebound. Swelling and edema from right flank to RLQ to right groin with no overlying rashes or erythema, mildly tender. EXTREMITIES: Bilateral 3+ pitting edema. No clubbing or cyanosis_ NEUROLOGICAL: Cranial nerves II through XII grossly intact. Normal speech, no focal sensorimotor deficits _ SKIN: Warm, Dry, normal turgor, no rashes or lesions noted_ \] ED Treatment Course - LABORATORY CBC & Chemistry Diagram: 03/03/20 05:50 03/03/20 05:50 Medical Decision Making - Medical Decision Making 03/02/20 13:43 74F hx of hepatic encephalopathy, hyper-ammonia, recently infected RUE PICC line, presenting today with RLQ pain and right flank/abd/groin swelling and BLE edema. -labs -CXR -EKG -urine -admit 03/02/20 14:17 CXR negative for acute intrathoracic pathology. 03/02/20 15:07 Labs reviewed. Laboratory Last Values WBC 5.7 K/mm3 (4.0-10.0) 03/02/20 14:15 RBC 2.62 M/mm3 (3.60-5.2) L 03/02/20 14:15 Hgb 8.2 GM/dL (10.7-15.3) L 03/02/20 14:15 Hct 25.2 % (32.4-45.2) L 03/02/20 14:15 MCV 96.0 fl (80-96) 03/02/20 14:15 MCH 31.1 pg (25.7-33.7) 03/02/20 14:15 MCHC 32.4 g/dl (32.0-36.0) 03/02/20 14:15 RDW 20.2 % (11.6-15.6) H 03/02/20 14:15 Plt Count 69 K/MM3 (134-434) L 03/02/20 14:15 MPV 10.1 fl (7.5-11.1) 03/02/20 14:15 Absolute Neuts (auto) 3.8 K/mm3 (1.5-8.0) 03/02/20 14:15 Neutrophils % 66.2 % (42.8-82.8) 03/02/20 14:15 Lymphocytes % 16.6 % (8-40) D 03/02/20 14:15 Monocytes % 14.6 % (3.8-10.2) H 03/02/20 14:15 Eosinophils % 1.8 % (0-4.5) 03/02/20 14:15 Basophils % 0.8 % (0-2.0) 03/02/20 14:15 Nucleated RBC % 0 % (0-0) 03/02/20 14:15 PT with INR 26.20 SEC (9.7-13.0) H 03/02/20 14:15 INR 2.20 (0.83-1.09) H 03/02/20 14:15 PTT (Actin FS) 45.6 SECONDS (25.2-36.5) H 03/02/20 14:15 Sodium 137 mmol/L (136-145) 03/02/20 14:15 Potassium 5.2 mmol/L (3.5-5.1) H 03/02/20 14:15 Chloride 101 mmol/L (98-107) 03/02/20 14:15 Carbon Dioxide 29 mmol/L (21-32) 03/02/20 14:15 Anion Gap 7 MMOL/L (8-16) L 03/02/20 14:15 BUN 28.7 mg/dL (7-18) H 03/02/20 14:15 Creatinine 1.8 mg/dL (0.55-1.3) H 03/02/20 14:15 Est GFR (CKD-EPI)AfAm 31.14 03/02/20 14:15 Est GFR (CKD-EPI)NonAf 26.87 03/02/20 14:15 Random Glucose 80 mg/dL (74-106) 03/02/20 14:15 Lactic Acid 2.9 mmol/L (0.4-2.0) H* 03/02/20 14:15 Calcium 8.3 mg/dL (8.5-10.1) L 03/02/20 14:15 Total Bilirubin 2.4 mg/dL (0.2-1) H 03/02/20 14:15 AST 54 U/L (15-37) H 03/02/20 14:15 ALT 16 U/L (13-61) 03/02/20 14:15 Alkaline Phosphatase 96 U/L (45-117) 03/02/20 14:15 Creatine Kinase 100 U/L (26-192) 03/02/20 14:15 Troponin I < 0.02 ng/ml (0.00-0.05) 03/02/20 14:15 B-Natriuretic Peptide 697.8 pg/ml (5-450) H 03/02/20 14:15 Total Protein 7.1 g/dl (6.4-8.2) 03/02/20 14:15 Albumin 2.0 g/dl (3.4-5.0) L 03/02/20 14:15 Lipase 114 U/L (73-393) 03/02/20 14:15 Urine Color Yellow 03/02/20 13:54 Urine Appearance Clear 03/02/20 13:54 Urine pH 6.0 (5.0-8.0) 03/02/20 13:54 Ur Specific [place] 1.010 (1.010-1.035) 03/02/20 13:54 Urine Protein Negative (NEGATIVE) 03/02/20 13:54 Urine Glucose (UA) Negative (NEGATIVE) 03/02/20 13:54 Urine Ketones Negative (NEGATIVE) 03/02/20 13:54 Urine Blood Trace (NEGATIVE) 03/02/20 13:54 Urine Nitrite Negative (NEGATIVE) 03/02/20 13:54 Urine Bilirubin Negative (NEGATIVE) 03/02/20 13:54 Urine Urobilinogen 0.2 mg/dL (0.2-1.0) 03/02/20 13:54 Ur Leukocyte Esterase Negative (NEGATIVE) 03/02/20 13:54 Urine WBC (Auto) 4 /uL (0-25.8) 03/02/20 13:54 Urine RBC (Auto) 26 /uL (0-23.9) 03/02/20 13:54 Urine Casts (Auto) 2 /uL (0-3.1) 03/02/20 13:54 U Epithel Cells (Auto) 5 /uL (0-25.1) 03/02/20 13:54 Urine Bacteria (Auto) 3 /uL (0-1359) 03/02/20 13:54 03/02/20 15:20 EKG shows 50 bpm, sinus bradycardia, no axis deviation, no ST elevation/dep ression, QTc 435. 03/02/20 16:09 D/w Dr. Pate who accepts the patient for admission. Discharge - Discharge Information Problems reviewed: Yes Clinical Impression/Diagnosis: CHF (congestive heart failure) Qualifiers: Heart failure type: unspecified Heart failure chronicity: unspecified Qualified Code(s): I50.9 - Heart failure, unspecified Condition: Stable - Admission Yes - Follow up/Referral - Patient Discharge Instructions - Post Discharge Activity
[2020-03-02 14:11] LABS: EPI CELLS 5 /uL (0-25.1); HYALINE CASTS 2 /uL (0-3.1); URINE APPEARANCE CLEAR; URINE BACTERIA 3 /uL (0-1359); URINE BILIRUBIN NEGATIVE (NEGATIVE); URINE COLOR YELLOW; URINE GLUCOSE (UA) NEGATIVE (NEGATIVE); URINE KETONE NEGATIVE (NEGATIVE); URINE LEUK ESTERASE NEGATIVE (NEGATIVE); URINE NITRITE NEGATIVE (NEGATIVE); URINE PROTEIN NEGATIVE (NEGATIVE); URINE RBC 26 /uL (0-23.9); URINE UROBILINOGEN 0.2 mg/dL (0.2-1.0); URINE WBC 4 /uL (0-25.8)
[2020-03-02] MEDS ORDERED: oxyCODONE HCL 5 MG TABLET PO ONE (14:11)
[2020-03-02] MEDS ORDERED: oxyCODONE HCL 5 MG TABLET ONE (14:13)
[2020-03-02 14:19] LABS: BASO % 0.8 % (0-2.0); EOS % 1.8 % (0-4.5); HEMATOCRIT 25.2 % (32.4-45.2); HEMOGLOBIN 8.2 GM/dL (10.7-15.3); LYMPH % 16.6 % (8-40); MCH 31.1 pg (25.7-33.7); MCHC 32.4 g/dl (32.0-36.0); MEAN PLT VOLUME 10.1 fl (7.5-11.1); MONO % 14.6 % (3.8-10.2); NEUT % 66.2 % (42.8-82.8); PLATELET COUNT 69 K/MM3 (134-434); RBC 2.62 M/mm3 (3.60-5.2); RDW 20.2 % (11.6-15.6); WHITE BLOOD COUNT 5.7 K/mm3 (4.0-10.0)
[2020-03-02 14:30] LABS: INR 2.2 (0.83-1.09); PROTHROMBIN TIME (PATIENT) 26.2 SEC (9.7-13.0)
[2020-03-02 14:32] LABS: ACTIVATED PTT 45.6 SECONDS (25.2-36.5)
[2020-03-02 14:44] LABS: ANION GAP 7 MMOL/L (8-16); BILIRUBIN,TOTAL 2.4 mg/dL (0.2-1); BLOOD UREA NITROGEN 28.7 mg/dL (7-18); CALCIUM 8.3 mg/dL (8.5-10.1); CHLORIDE 101 mmol/L (98-107); CO2 29 mmol/L (21-32); CREATININE 1.8 mg/dL (0.55-1.3); GLUCOSE,RANDOM 80 mg/dL (74-106); LIPASE 114 U/L (73-393); N-TERMINAL BNP 697.8 pg/ml (5-450); POTASSIUM 5.2 mmol/L (3.5-5.1); SGOT/AST 54 U/L (15-37); SGPT/ALT 16 U/L (13-61); SODIUM 137 mmol/L (136-145); TOT PROT 7.1 g/dl (6.4-8.2)
[2020-03-02 14:45] LABS: ALK PHOS 96 U/L (45-117)
--- NOTE | 2020-03-02 14:45 | PDOC ---
Documentation entered by Shemar Cortés SCRIBE, acting as scribe for Elvis Mcpherson MD. Elvis Mcpherson MD: This documentation has been prepared by the Milana gonzales Nirvannie, SCRIBE, under my direction and personally reviewed by me in its entirety. I confirm that the documentation accurately reflects all work, treatment, procedures, and medical decision making performed by me. Attending Attestation - Resident Resident Name: MaddoxJose - ED Attending Attestation I have performed the following: I have examined & evaluated the patient, The case was reviewed & discussed with the resident, I agree w/resident's findings & plan, Exceptions are as noted - HPI HPI: 03/02/20 14:15 The patient is a 74 year old female with a significant past medical history of cirrhosis, HFpEF, afib on eliquis, CKD, venous insufficiency, and recent admission for AMS, hepatic encephalopathy, and right arm picc line infection (02/14-02/20) who presents to the ED via EMS from [facility] with abdominal swelling. Pt notes that her legs have become more swollen as well. Over the last week, she has felt her R abdomen become more tense and swollen. Denies redness. Denies fevers. Allergies: NKDA - Physicial Exam PE: 03/02/20 14:52 See resident exam - Medical Decision Making 03/02/20 14:52 74 F with increased edema, with pitting edema extending to her lower abdomen. - Labs - CXR - Diurese as needed Discharge - Discharge Information Problems reviewed: Yes Clinical Impression/Diagnosis: CHF (congestive heart failure) Qualifiers: Heart failure type: unspecified Heart failure chronicity: unspecified Qualified Code(s): I50.9 - Heart failure, unspecified Condition: Stable - Follow up/Referral - Patient Discharge Instructions - Post Discharge Activity
[2020-03-02] MEDS ORDERED: FUROSEMIDE 40 MG/4 ML INJECTABLE VIAL IVPUSH ONE (15:06)
[2020-03-02] MEDS ORDERED: FUROSEMIDE 40 MG/4 ML INJECTABLE VIAL ONE (15:14)
[2020-03-02] MEDS ORDERED: ACETAMINOPHEN 325 MG TABLET (FP) PO PRN (18:48)
[2020-03-02] MEDS ORDERED: LACTULOSE 20 GM/30 ML UDC (FOR ORAL USE ONLY) PO PRN (18:48)
[2020-03-02] MEDS ORDERED: oxyCODONE HCL 5 MG TABLET PO PRN (18:48)
[2020-03-02] MEDS ORDERED: DOCUSATE SODIUM 100 MG CAPSULE (FP) PO PRN (18:48)
[2020-03-02] MEDS ORDERED: ARTIFICIAL TEARS (POLYVINYL ALCOHOL) OPTH DROPS OU PRN (18:48)
[2020-03-02] MEDS ORDERED: SPIRONOLACTONE 25 MG TABLET PO SCH (22:00)
[2020-03-02] MEDS: RIFAXIMIN 550 MG TABLET (UD) PO SCH (22:30)
[2020-03-02] MEDS: APIXABAN 2.5 MG TABLET PO SCH (22:30)
[2020-03-03] MEDS ORDERED: APIXABAN 2.5 MG TABLET ONE ×3 (00:28→23:43)
--- NOTE | 2020-03-03 06:01 | PDOC ---
*Physical Exam - Vital Signs Last Vital Signs Temp Pulse Resp BP Pulse Ox 97.8 F 68 18 97/54 L 97 03/03/20 03:10 03/03/20 04:12 03/03/20 04:12 03/03/20 04:12 03/03/20 04:12 ED Treatment Course - LABORATORY CBC & Chemistry Diagram: 03/02/20 14:15 03/02/20 14:15 - ADDITIONAL ORDERS Additional order review: 03/02/20 14:15 RBC 2.62 L MCV 96.0 MCHC 32.4 RDW 20.2 H MPV 10.1 Neutrophils % 66.2 Lymphocytes % 16.6 D Monocytes % 14.6 H Eosinophils % 1.8 Basophils % 0.8 - Medications Given in the ED: ED Medications Discontinued Medications Generic Name Dose Route Start Last Admin Trade Name Freq PRN Reason Stop Dose Admin Furosemide 40 mg 03/02/20 15:06 03/02/20 15:26 Lasix Injection - IVPUSH 03/02/20 15:07 40 mg ONCE ONE Administration Oxycodone HCl 5 mg 03/02/20 14:11 03/02/20 14:19 Roxicodone - PO 03/02/20 14:12 5 mg ONCE ONE Administration Spironolactone 25 mg 03/02/20 22:00 03/02/20 22:57 Aldactone - PO Not Given BID [facility] Medical Decision Making - Medical Decision Making 03/03/20 05:59 Phlebotomy in ED for AM labs, Patient reports elevated ammonia level. Phlebotomy would like to know if ammonia tube needs to be drawn. Per chart review, has history of hepatic disease and elevated ammonia. Ammonia level not ordered by prior ED team or admitting team. Deemed appropriate to order at this time given blood being drawn at bedside. Ammonia level ordered. Discharge - Discharge Information Problems reviewed: Yes Clinical Impression/Diagnosis: CHF (congestive heart failure) Qualifiers: Heart failure type: unspecified Heart failure chronicity: unspecified Qualified Code(s): I50.9 - Heart failure, unspecified - Follow up/Referral - Patient Discharge Instructions - Post Discharge Activity
[2020-03-03 06:32] LABS: HEMATOCRIT 23.6 % (32.4-45.2); HEMOGLOBIN 7.5 GM/dL (10.7-15.3); MCH 30.1 pg (25.7-33.7); MCHC 31.8 g/dl (32.0-36.0); MEAN CELL VOLUME 94.6 fl (80-96); MEAN PLT VOLUME 10.1 fl (7.5-11.1); PLATELET COUNT 70 K/MM3 (134-434); RDW 20.1 % (11.6-15.6); WHITE BLOOD COUNT 5.6 K/mm3 (4.0-10.0)
[2020-03-03 06:37] LABS: ALBUMIN 1.8 g/dl (3.4-5.0); BILIRUBIN,TOTAL 1.9 mg/dL (0.2-1); BLOOD UREA NITROGEN 29.1 mg/dL (7-18); CALCIUM 8.6 mg/dL (8.5-10.1); CREATININE 1.8 mg/dL (0.55-1.3); POTASSIUM 4.8 mmol/L (3.5-5.1); TOT PROT 6.5 g/dl (6.4-8.2)
--- NOTE | 2020-03-03 09:37 | EKG ---
Test Reason : Blood Pressure : / mmHG Vent. Rate : 050 BPM Atrial Rate : 050 BPM P-R Int : 154 ms QRS Dur : 080 ms QT Int : 478 ms P-R-T Axes : 066 001 035 degrees QTc Int : 435 ms SINUS BRADYCARDIA Low precordial voltage OTHERWISE NORMAL ECG WHEN COMPARED WITH ECG OF 19-FEB-2020 11:43, NO SIGNIFICANT CHANGE WAS FOUND Confirmed by Sherif Green ([id number]) on 03/03/2020 9:37:19 AM Referred By: Confirmed By:Sherif Green
[2020-03-03] MEDS ORDERED: FUROSEMIDE 40 MG/4 ML INJECTABLE VIAL IVPUSH SCH ×2 (10:00→22:00)
[2020-03-03] MEDS ORDERED: FUROSEMIDE 40 MG/4 ML INJECTABLE VIAL ONE (10:10)
--- NOTE | 2020-03-03 10:21 | CON.CARD ---
Consult Consult Specialty:: Cardiology Referred by:: Herlinda Reason for Consultation:: Fluid overload - History of Present Illness Chief Complaint: Fluid overload History of Present Illness: The patient is a 74-year-old female, with a history of hypertension, liver cirrhosis, diastolic congestive heart failure, venous insufficiency, partial portal vein thrombosis, bacteremia 01/22/2020, normal ejection fraction on echo 01/23/2020, atrial fibrillation 01/31/2020 with spontaneous cardioversion, now readmitted with fluid overload. The patient denied chest pains and shortness of breath. No palpitations. She is currently comfortable and symptom-free. In sinus rhythm. 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 Cardio/Vascular: Yes: AFIB (paroxysmal NADIA), CHF, HTN, Other Gastrointestinal: Yes: Ascites Hepatobiliary: Yes: Cirrhosis (likely due to KING with ascites and hepatic encephalopathy) Renal/: Yes: Renal Inusuff Infectious Disease: Yes: Other (Strep mitis bacteremia) - Past Surgical History Past Surgical History: Yes: None - Alcohol/Substance Use Hx Alcohol Use: No History of Substance Use: reports: None - Smoking History Smoking history: Never smoked Have you smoked in the past 12 months: No Aproximately how many cigarettes per day: 0 - Social History Usual Living Arrangement: [facility] 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 History of Recent Travel: No Home Medications - Allergies Allergies/Adverse Reactions: Allergies Allergy/AdvReac Type Severity Reaction Status Date / Time No Known Allergies Allergy Verified 03/02/20 12:42 - Home Medications Home Medications: Ambulatory Orders Acetaminophen [Tylenol .Extra-Strength -] 1,000 mg PO Q6H PRN #240 tablet 01/31/20 Amino Acids/Protein Hydrolys [Prosource No Carb Liquid Pkt] 30 ml PO BID #1800 ml 01/31/20 Lactulose 10 gm PO TID #1350 ml 01/31/20 Metoprolol Succinate [Toprol XL -] 25 mg PO DAILY #30 tab.sr.24h 02/01/20 Rifaximin [Xifaxan] 550 mg PO BID #60 tablet 02/05/20 Apixaban [Eliquis -] 2.5 mg PO BID #60 tablet 02/21/20 Furosemide [Lasix -] 40 mg PO DAILY tablet 02/21/20 Polyvinyl Alcohol [Artificial Tears] 1 drop OS BID PRN drops 02/21/20 Spironolactone [Aldactone -] 25 mg PO BID tablet 02/21/20 Ascorbate Calcium [Vitamin C] 500 mg PO DAILY 03/02/20 Folic Acid 1 mg PO DAILY 03/02/20 Oxycodone HCl 5 mg PO BID PRN 03/02/20 Zinc Oxide 1 applic TP BID 03/02/20 Zinc Sulfate 220 mg PO DAILY 03/02/20 Review of Systems - Review of Systems Constitutional: reports: Lethargy, Malaise Eyes: reports: No Symptoms HENT: reports: No Symptoms Neck: reports: No Symptoms Cardiovascular: reports: No Symptoms Respiratory: reports: No Symptoms Gastrointestinal: reports: No Symptoms, Bloating, Other (Ascites) Genitourinary: reports: No Symptoms Breasts: reports: No Symptoms Reported Musculoskeletal: reports: Joint Pain Integumentary: reports: No Symptoms Neurological: reports: No Symptoms Endocrine: reports: No Symptoms Hematology/Lymphatic: reports: No Symptoms Psychiatric: reports: No Symptoms Vital Signs: Vital Signs Temperature 98.2 F 03/03/20 07:24 Pulse Rate 68 03/03/20 07:24 Respiratory Rate 18 03/03/20 07:24 Blood Pressure 90/49 L 03/03/20 07:24 O2 Sat by Pulse Oximetry (%) 98 03/03/20 08:45 Constitutional: Yes: Obese Eyes: Yes: WNL, Conjunctiva Clear, EOM Intact HENT: Yes: WNL, Atraumatic, Normocephalic Neck: Yes: WNL, Supple, Trachea Midline Respiratory: Yes: WNL, Regular, CTA Bilaterally Gastrointestinal: Yes: Normal Bowel Sounds, Soft, Abdomen, Obese, Ascites Renal/: Yes: WNL Cardiovascular: Yes: WNL, Regular Rate and Rhythm JVD: No Carotid Bruit: No PMI: Non-Displaced Heart Sounds: Yes: S1, S2 Murmur: Yes: Systolic Murmur, Grade 2 Musculoskeletal: Yes: WNL Edema: LLE: 2+, RLE: 2+ Peripheral Pulses: 1+ Left Carotid, 1+ Right Carotid, 1+ Left Femoral, 1+ Right Femoral, 1+ Left Popliteal, 1+ Right Popliteal, 1+ Left Doralis Pedis, 1+ Right Dorsalis Pedis Integumentary: Yes: WNL Neurological: Yes: WNL, Alert, Oriented ...Motor Strength: WNL Psychiatric: Yes: WNL, Alert, Oriented - Other Data Labs, Other Data: CBC, BMP 03/03/20 05:50 03/03/20 05:50 INR, PTT INR 2.20 (0.83-1.09) H 03/02/20 14:15 Troponin, BNP 03/02/20 14:15 Troponin I < 0.02 B-Natriuretic Peptide 697.8 H Troponin, BNP 03/02/20 14:15 Troponin I < 0.02 B-Natriuretic Peptide 697.8 H Assessment/Plan The patient is a 74-year-old female, with a history of hypertension, liver cirrhosis, diastolic congestive heart failure, venous insufficiency, partial portal vein thrombosis, bacteremia 01/22/2020, normal ejection fraction on echo 01/23/2020, atrial fibrillation 01/31/2020 with spontaneous cardioversion, now readmitted with fluid overload. The patient denied chest pains and shortness of breath. No palpitations. She is currently comfortable and symptom-free. In sinus rhythm. There is no evidence of ischemia nor acute coronary syndrome. No CHF. The patient is in sinus bradycardia. Hemodynamically stable. Massively fluid overloaded. Hold metoprolol for the time being. Aggressive diuresis with Lasix 60 mg IV twice daily. Consider compression stockings. Salt and fluid restrictions. Follow hemoglobin trend. There is no need for further cardiac work-up at this point. No need for cardiac monitoring. Please do not hesitate to call us PRN. GI/hepatology evaluation. Cardiac stable.
[2020-03-03] MEDS: metoPROLOL SUCCINATE 25 MG TAB.SR.24H (FP) PO SCH (10:28)
[2020-03-03] MEDS ORDERED: SPIRONOLACTONE 25 MG TABLET PO SCH (10:45)
--- NOTE | 2020-03-03 10:46 | HP ---
Admitting History and Physical - Primary Care Physician PCP: Gerhard Carson - Admission Chief Complaint: Ascites History of Present Illness: The patient is a 74 year old female with a significant past medical history of cirrhosis, HFpEF, afib on eliquis, CKD, venous insufficiency, and recent admission for AMS, hepatic encephalopathy, and right arm picc line infection (02/14-02/20) who presents to the ED via EMS from [facility] with abdominal swelling. Pt notes that her legs have become more swollen as well. Over the last week, she has felt her R abdomen become more tense and swollen. Denies redness. Denies fevers. Pt has hx of cryptogenic cirrhosis, is chronically on Furosemide and Spironolactone. 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 Cardiovascular: Yes: AFIB (paroxysmal NADIA), CHF, HTN, Other Gastrointestinal: Yes: Ascites Hepatobiliary: Yes: Cirrhosis (likely due to KING with ascites and hepatic encephalopathy) Renal/: Yes: Renal Inusuff Heme/Onc: Yes: Anemia, Thrombocytopenia Infectious Disease: Yes: Other (Strep mitis bacteremia) - Past Surgical History Past Surgical History: Yes: None - Smoking History Smoking history: Never smoked Have you smoked in the past 12 months: No Aproximately how many cigarettes per day: 0 - Alcohol/Substance Use Hx Alcohol Use: No History of Substance Use: reports: None - Social History 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 History of Recent Travel: No Home Medications - Allergies Allergies/Adverse Reactions: Allergies Allergy/AdvReac Type Severity Reaction Status Date / Time No Known Allergies Allergy Verified 03/02/20 12:42 - Home Medications Home Medications: Ambulatory Orders Acetaminophen [Tylenol .Extra-Strength -] 1,000 mg PO Q6H PRN #240 tablet 01/31/20 Amino Acids/Protein Hydrolys [Prosource No Carb Liquid Pkt] 30 ml PO BID #1800 ml 01/31/20 Lactulose 10 gm PO TID #1350 ml 01/31/20 Metoprolol Succinate [Toprol XL -] 25 mg PO DAILY #30 tab.sr.24h 02/01/20 Rifaximin [Xifaxan] 550 mg PO BID #60 tablet 02/05/20 Apixaban [Eliquis -] 2.5 mg PO BID #60 tablet 02/21/20 Furosemide [Lasix -] 40 mg PO DAILY tablet 02/21/20 Polyvinyl Alcohol [Artificial Tears] 1 drop OS BID PRN drops 02/21/20 Spironolactone [Aldactone -] 25 mg PO BID tablet 02/21/20 Ascorbate Calcium [Vitamin C] 500 mg PO DAILY 03/02/20 Folic Acid 1 mg PO DAILY 03/02/20 Oxycodone HCl 5 mg PO BID PRN 03/02/20 Zinc Oxide 1 applic TP BID 03/02/20 Zinc Sulfate 220 mg PO DAILY 03/02/20 Review of Systems - Review of Systems Constitutional: reports: No Symptoms Eyes: reports: No Symptoms HENT: reports: No Symptoms Neck: reports: No Symptoms Cardiovascular: reports: Edema Respiratory: reports: No Symptoms Gastrointestinal: reports: No Symptoms Genitourinary: reports: No Symptoms Breasts: reports: No Symptoms Reported Musculoskeletal: reports: Muscle Weakness Integumentary: reports: No Symptoms Neurological: reports: No Symptoms Endocrine: reports: No Symptoms Hematology/Lymphatic: reports: No Symptoms Physical Examination Vital Signs: Vital Signs Temperature 98.0 F 03/03/20 10:16 Pulse Rate 72 03/03/20 10:16 Respiratory Rate 18 03/03/20 10:16 Blood Pressure 92/52 L 03/03/20 10:16 O2 Sat by Pulse Oximetry (%) 96 03/03/20 10:16 Constitutional: Yes: Well Nourished, No Distress, Calm, Obese Cardiovascular: Yes: Regular Rate and Rhythm Respiratory: Yes: Regular, CTA Bilaterally Gastrointestinal: Yes: Normal Bowel Sounds, Soft, Abdomen, Obese, Ascites (RL abdomen) Renal/: Yes: WNL Musculoskeletal: Yes: Muscle Weakness Extremities: Yes: WNL Edema: Yes Peripheral Pulses WNL: Yes Neurological: Yes: Alert, Oriented Psychiatric: Yes: Alert, Oriented Labs: CBC, BMP 03/03/20 05:50 03/03/20 05:50 Problem List - Problems (1) Afib Assessment/Plan: -Chronic, rate controlled -Continue Eliquis Problems reviewed: Yes Code(s): I48.91 - UNSPECIFIED ATRIAL FIBRILLATION (2) Anemia Assessment/Plan: -Chronic -2/2 to chronic liver disease -Monitor trend -Transfuse only if Hg<7.0 to avoid fluid overload Problems reviewed: Yes Code(s): D64.9 - ANEMIA, UNSPECIFIED (3) CKD (chronic kidney disease) Assessment/Plan: -nephrology consult -resume furosemide 40 mg IVP daily -Resume Spironolactone 50 mg po daily Problems reviewed: Yes Code(s): N18.9 - CHRONIC KIDNEY DISEASE, UNSPECIFIED (4) Cryptogenic cirrhosis Assessment/Plan: -GI consult -resume lactulose + rifaxamin Problems reviewed: Yes Code(s): K74.69 - OTHER CIRRHOSIS OF LIVER (5) Edema of abdominal wall Assessment/Plan: -IR consult for possible paracentesis Problems reviewed: Yes Code(s): R60.0 - LOCALIZED EDEMA (6) Lactic acidosis Assessment/Plan: -chronic -no signs of acute infection -afebrile -2/2 to CKD Problems reviewed: Yes Code(s): E87.2 - ACIDOSIS Assessment/Plan See problem list Left msg for son Jefferson for pt update
[2020-03-03] MEDS: APIXABAN 2.5 MG TABLET PO SCH ×2 (11:00→23:46)
[2020-03-03] MEDS: RIFAXIMIN 550 MG TABLET (UD) PO SCH ×2 (11:00→23:47)
--- NOTE | 2020-03-03 13:32 | CON.PULM ---
Consult Consult Specialty:: PULM/CCM Referred by:: NIMA Reason for Consultation:: SOB - History of Present Illness Chief Complaint: Increasing abdominal fluid History of Present Illness: 73 F, HTN, HLD, HCOM, CHF, crypotogenic cirrhosis, and venous insufficiency. Admitted via the ER due to increasing abdominal ascites and leg edema. She does endorse intermittently SHOOK. She does not SOB, cough, hemoptysis, CP, etc. She reports no exposure to COVID19. No travel history or sick contacts. 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 Cardio/Vascular: Yes: AFIB (paroxysmal NADIA), CHF, HTN, Other Gastrointestinal: Yes: Ascites Hepatobiliary: Yes: Cirrhosis (likely due to KING with ascites and hepatic encephalopathy) Renal/: Yes: Renal Inusuff Infectious Disease: Yes: Other (Strep mitis bacteremia) - Past Surgical History Past Surgical History: Yes: None - Alcohol/Substance Use Hx Alcohol Use: No History of Substance Use: reports: None - Smoking History Smoking history: Never smoked Have you smoked in the past 12 months: No Aproximately how many cigarettes per day: 0 - Social History Usual Living Arrangement: [facility] 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 History of Recent Travel: No Home Medications - Allergies Allergies/Adverse Reactions: Allergies Allergy/AdvReac Type Severity Reaction Status Date / Time No Known Allergies Allergy Verified 03/02/20 12:42 - Home Medications Home Medications: Ambulatory Orders Acetaminophen [Tylenol .Extra-Strength -] 1,000 mg PO Q6H PRN #240 tablet 01/31/20 Amino Acids/Protein Hydrolys [Prosource No Carb Liquid Pkt] 30 ml PO BID #1800 ml 01/31/20 Lactulose 10 gm PO TID #1350 ml 01/31/20 Metoprolol Succinate [Toprol XL -] 25 mg PO DAILY #30 tab.sr.24h 02/01/20 Rifaximin [Xifaxan] 550 mg PO BID #60 tablet 02/05/20 Apixaban [Eliquis -] 2.5 mg PO BID #60 tablet 02/21/20 Furosemide [Lasix -] 40 mg PO DAILY tablet 02/21/20 Polyvinyl Alcohol [Artificial Tears] 1 drop OS BID PRN drops 02/21/20 Spironolactone [Aldactone -] 25 mg PO BID tablet 02/21/20 Ascorbate Calcium [Vitamin C] 500 mg PO DAILY 03/02/20 Folic Acid 1 mg PO DAILY 03/02/20 Oxycodone HCl 5 mg PO BID PRN 03/02/20 Zinc Oxide 1 applic TP BID 03/02/20 Zinc Sulfate 220 mg PO DAILY 03/02/20 Review of Systems - Review of Systems Constitutional: reports: Malaise. denies: Chills, Fever, Night Sweats Eyes: reports: No Symptoms HENT: reports: No Symptoms Neck: reports: No Symptoms Cardiovascular: reports: Edema, Shortness of Breath. denies: Chest Pain, Palpitations Respiratory: reports: Orthopnea, SOB on Exertion. denies: Cough, Hemoptysis, Snoring, SOB, Wheezing Gastrointestinal: reports: Other (Fluid retention) Genitourinary: reports: No Symptoms Breasts: reports: No Symptoms Reported Musculoskeletal: reports: Back Pain Integumentary: reports: No Symptoms Neurological: reports: No Symptoms Endocrine: reports: No Symptoms Hematology/Lymphatic: reports: No Symptoms Psychiatric: reports: No Symptoms Physical Exam Vital Sings: Vital Signs Temperature 98.0 F 03/03/20 10:16 Pulse Rate 72 03/03/20 13:00 Respiratory Rate 18 03/03/20 13:00 Blood Pressure 99/42 L 03/03/20 13:00 O2 Sat by Pulse Oximetry (%) 97 03/03/20 13:00 Constitutional: Yes: No Distress, Obese Eyes: Yes: Conjunctiva Clear, EOM Intact HENT: Yes: Atraumatic, Normocephalic Neck: Yes: Supple, Trachea Midline Cardiovascular: Yes: Regular Rate and Rhythm Respiratory: Yes: Diminished, SOB on Exertion. No: Accessory Muscle Use, Rales, Rhonchi, SOB, Stridor, Tachypnea, Wheezes ...Inspection: Yes: WNL ...Clubbing: No Gastrointestinal: Yes: Normal Bowel Sounds, Soft, Abdomen, Obese, Ascites Musculoskeletal: Yes: WNL Extremities: Yes: WNL Edema: Yes Peripheral Pulses WNL: Yes Integumentary: Yes: WNL Neurological: Yes: WNL, Alert, Oriented ...Motor Strength: WNL Psychiatric: Yes: WNL, Alert, Oriented Labs: CBC, BMP 03/03/20 05:50 03/03/20 05:50 Imaging - Results Chest X-ray: Report Reviewed, Image Reviewed Problem List - Problems (1) Afib Code(s): I48.91 - UNSPECIFIED ATRIAL FIBRILLATION (2) Anemia Code(s): D64.9 - ANEMIA, UNSPECIFIED (3) Ascites Code(s): R18.8 - OTHER ASCITES Qualifiers: Ascites type: other type Qualified Code(s): R18.8 - Other ascites (4) CKD (chronic kidney disease) Code(s): N18.9 - CHRONIC KIDNEY DISEASE, UNSPECIFIED (5) Chronic liver disease and cirrhosis Code(s): K74.60 - UNSPECIFIED CIRRHOSIS OF LIVER; K76.9 - LIVER DISEASE, UNSPECIFIED (6) Cirrhosis of liver with ascites Code(s): K74.60 - UNSPECIFIED CIRRHOSIS OF LIVER; R18.8 - OTHER ASCITES (7) Cor pulmonale Code(s): I27.81 - COR PULMONALE (CHRONIC) (8) Cryptogenic cirrhosis Code(s): K74.69 - OTHER CIRRHOSIS OF LIVER (9) Edema Code(s): R60.9 - EDEMA, UNSPECIFIED (10) Edema of abdominal wall Code(s): R60.0 - LOCALIZED EDEMA (11) HTN (hypertension) Code(s): I10 - ESSENTIAL (PRIMARY) HYPERTENSION (12) Hypotension Code(s): I95.9 - HYPOTENSION, UNSPECIFIED (13) 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 Assessment/Plan IMP: SHOOK referable to a restrictive process due to ascites due to Cryptogenic Cirrhosis PLAN: Diuresis as tolerated Supplemental O2 as needed May benefit from paracentesis No clear indication of infection : would monitor off ABX No smoking Rifaxamin Lactulose Will follow Thank you. Dr Bauman
--- NOTE | 2020-03-03 13:46 | CONSULT ---
Consult Consult Specialty:: Nephrology Reason for Consultation:: CKD - History of Present Illness Chief Complaint: abd swelling and edema. History of Present Illness: Pt is a 74 year old female with pmhx of ckd, cesario, liver corrhosis, a-fib who presents with increased ascites and edema. She was recently discharged from the hospital. She denies shortness of breath. She complains of abd discomfort from ascites. She says she was on diuretics in rehab. She denies fevers or chills. 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 Cardio/Vascular: Yes: AFIB (paroxysmal NADIA), CHF, HTN, Other Gastrointestinal: Yes: Ascites Hepatobiliary: Yes: Cirrhosis (likely due to KING with ascites and hepatic encephalopathy) Renal/: Yes: Renal Inusuff Infectious Disease: Yes: Other (Strep mitis bacteremia) - Past Surgical History Past Surgical History: Yes: None - Alcohol/Substance Use Hx Alcohol Use: No History of Substance Use: reports: None - Smoking History Smoking history: Never smoked Have you smoked in the past 12 months: No Aproximately how many cigarettes per day: 0 - Social History Usual Living Arrangement: [facility] 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 History of Recent Travel: No Home Medications - Allergies Allergies/Adverse Reactions: Allergies Allergy/AdvReac Type Severity Reaction Status Date / Time No Known Allergies Allergy Verified 03/02/20 12:42 - Home Medications Home Medications: Ambulatory Orders Acetaminophen [Tylenol .Extra-Strength -] 1,000 mg PO Q6H PRN #240 tablet 01/31/20 Amino Acids/Protein Hydrolys [Prosource No Carb Liquid Pkt] 30 ml PO BID #1800 ml 01/31/20 Lactulose 10 gm PO TID #1350 ml 01/31/20 Metoprolol Succinate [Toprol XL -] 25 mg PO DAILY #30 tab.sr.24h 02/01/20 Rifaximin [Xifaxan] 550 mg PO BID #60 tablet 02/05/20 Apixaban [Eliquis -] 2.5 mg PO BID #60 tablet 02/21/20 Furosemide [Lasix -] 40 mg PO DAILY tablet 02/21/20 Polyvinyl Alcohol [Artificial Tears] 1 drop OS BID PRN drops 02/21/20 Spironolactone [Aldactone -] 25 mg PO BID tablet 02/21/20 Ascorbate Calcium [Vitamin C] 500 mg PO DAILY 03/02/20 Folic Acid 1 mg PO DAILY 03/02/20 Oxycodone HCl 5 mg PO BID PRN 03/02/20 Zinc Oxide 1 applic TP BID 03/02/20 Zinc Sulfate 220 mg PO DAILY 03/02/20 Family Medical History Family History: Denies Review of Systems - Review of Systems Constitutional: denies: Chills, Fever Eyes: reports: No Symptoms HENT: reports: No Symptoms Neck: reports: No Symptoms Cardiovascular: reports: No Symptoms Respiratory: reports: No Symptoms Gastrointestinal: reports: No Symptoms Genitourinary: reports: No Symptoms Musculoskeletal: reports: No Symptoms Integumentary: reports: No Symptoms Neurological: reports: No Symptoms Endocrine: reports: No Symptoms Hematology/Lymphatic: reports: No Symptoms Psychiatric: reports: No Symptoms Physical Exam Vital Signs: Vital Signs Temperature 98.0 F 03/03/20 10:16 Pulse Rate 72 03/03/20 13:00 Respiratory Rate 18 03/03/20 13:00 Blood Pressure 99/42 L 03/03/20 13:00 O2 Sat by Pulse Oximetry (%) 97 03/03/20 13:00 Constitutional: Yes: Calm Eyes: Yes: Conjunctiva Clear HENT: Yes: Atraumatic Neck: Yes: Supple Cardiovascular: Yes: S1, S2 Respiratory: Yes: CTA Bilaterally Gastrointestinal: Yes: Abdomen, Obese, Ascites Renal/: Yes: WNL Musculoskeletal: Yes: WNL Extremities: Yes: WNL Edema: Yes Neurological: Yes: Oriented Psychiatric: Yes: Oriented Labs: CBC, BMP 03/03/20 05:50 03/03/20 05:50 Imaging - Results Chest X-ray: Report Reviewed Problem List - Problems (1) CHF (congestive heart failure) Code(s): I50.9 - HEART FAILURE, UNSPECIFIED Qualifiers: Heart failure type: unspecified Heart failure chronicity: unspecified Qualified Code(s): I50.9 - Heart failure, unspecified (2) Lactic acidosis Code(s): E87.2 - ACIDOSIS Assessment/Plan Current Medications Generic Name Dose Route Start Last Admin Trade Name Freq PRN Reason Stop Dose Admin Acetaminophen 650 mg 03/02/20 18:48 Tylenol - PO Q6H PRN FEVER Apixaban 2.5 mg 03/02/20 22:00 03/03/20 11:00 Eliquis - PO 2.5 mg BID [facility] Administration Artificial Tears 1 drop 03/02/20 18:48 Artificial Tears OU BID PRN DRY EYES Docusate Sodium 100 mg 03/02/20 18:48 Colace - PO BID PRN CONSTIPATION Furosemide 40 mg 03/03/20 22:00 Lasix Injection - IVPUSH BID [facility] Lactulose 20 gm 03/03/20 14:00 Cephulac (Oral Use) PO TID [facility] Metoprolol Succinate 25 mg 03/03/20 10:00 03/03/20 10:28 Toprol Xl - PO Not Given DAILY [facility] Oxycodone HCl 5 mg 03/02/20 18:48 Roxicodone - PO Q6H PRN PAIN LEVEL 7 - 10 Rifaximin 550 mg 03/02/20 22:00 03/03/20 11:00 Xifaxan - PO 550 mg BID [facility] Administration Spironolactone 50 mg 03/03/20 10:45 03/03/20 12:28 Aldactone - PO Not Given DAILY [facility] Impression 1. CKD 2. ascites 3. liver cirrhosis 4. ileus 5. microscopic hematuria 6. fluid overload 7. a-fib 8. hyperkalemia Plan - cont IV lasix - repeat labs in am - monitor lytes - monitor bp - will decrease dose of aldacton as potassium was elevated
[2020-03-03] MEDS ORDERED: LACTULOSE 20 GM/30 ML UDC (FOR ORAL USE ONLY) ONE ×2 (14:14→23:43)
[2020-03-03] MEDS: LACTULOSE 20 GM/30 ML UDC (FOR ORAL USE ONLY) PO SCH ×3 (14:27→23:55)
--- NOTE | 2020-03-03 18:24 | CONSULT ---
Consultation: REQUESTING PROVIDER: Dr. Pate CONSULT REQUEST: We have been asked to medically evaluate this patient for Anemia. HISTORY OF PRESENT ILLNESS: Pt. is a 74 y.o. F w/ PMHx. of Cirrhosis(KING w/ ascites and Hx. of HE), HFpEF, Afib(on reduced? dose Eliquis), CKD (Stage 3), Venous insufficiency, HTN, Anemia, and Throbocytopenia presents for increased abdominal swelling. We have been called to assess Pt. for anemia. Pt. states that at [facility] she was having increased abdominal swelling an that she requested to come to the hospital for that. Pt. denies any altered mental status. Pt. denies any overt blood in the urine or the stool but states she has intermittent episodes of dark colored stool. Pt. states it does not happen everyday and is unable to tell me exactly when the last episode was. Pt. states her last Mammogran and Pap Smear were greater than 5 years ago, were both negative and never were positive. Pt. has never had colonoscopy and refused last offer on 02/15/20. Pt. also refused endoscopy at that time. Pt. was seen by Heme/Onc service 1 month ago and panctyopenia was determined to be because of chronic disease and because of cirrhosis. Pt. endorses RUE extremity pain and decreased ROM since having PICC line removed. Pt. endorses RUQ abdominal tenderness that radiates around her back. Pt. quit smoking 35 years ago and was sent to [facility] for rehab. Normally Pt. lives at home with her son (KALPESH). Of note Pt. had Metoprolol recently discontinued for symptomatic bradycardia. REVIEW OF SYSTEMS: As above PHYSICAL EXAMINATION Vital Signs - 24 hr 03/02/20 03/02/20 03/03/20 22:16 23:07 03:10 Temperature 97.8 F Pulse Rate [ 68 61 64 Apical] Respiratory 14 15 14 Rate Blood Pressure 94/42 L 97/47 L 86/40 L [Right Arm] O2 Sat by Pulse 96 97 96 Oximetry (%) 03/03/20 03/03/20 03/03/20 04:12 06:33 06:51 Temperature 97.9 F Pulse Rate [ 68 69 Apical] Respiratory 18 16 Rate Blood Pressure 97/54 L 90/40 L [Right Arm] O2 Sat by Pulse 97 91 L 3 L Oximetry (%) 03/03/20 03/03/20 03/03/20 07:24 08:45 10:16 Temperature 98.2 F 98.0 F Pulse Rate [ 68 72 Apical] Respiratory 18 18 Rate Blood Pressure 90/49 L 92/52 L [Right Arm] O2 Sat by Pulse 97 98 96 Oximetry (%) 03/03/20 03/03/20 13:00 15:40 Temperature Pulse Rate [ 72 66 Apical] Respiratory 18 22 H Rate Blood Pressure 99/42 L 92/49 L [Right Arm] O2 Sat by Pulse 97 97 Oximetry (%) GENERAL: Awake, alert, and fully oriented, in no acute distress. HEAD: Normal with no signs of trauma. EYES: Extraocular movements intact, sclera anicteric, conjunctiva clear. EARS, NOSE, THROAT: Moist mucous membranes. NECK: No lymphadenopathy, JVD, or masses. LUNGS: Breath sounds equal anteriorly, clear to auscultation bilaterally. No wheezes, and no crackles. HEART: Regular rate and rhythm, normal S1 and S2 with systolic murmur ABDOMEN: Soft, RUQ tenderness, prominent abdomen with areas of tissue swelling i n RUQ, epigastrium and LUQ? normoactive bowel sounds, increased tissue density in aforementioned areas? masses? anasarcic skin changes, dull to percussion MUSCULOSKELETAL: Decreased ROM of RUE UPPER EXTREMITIES: 2+ radial pulses, warm, well-perfused. LOWER EXTREMITIES: 2+ dorsal pedal pulses, warm, well-perfused. No calf tenderness. No peripheral edema. NEUROLOGICAL: Cranial nerves II-XII intact. Normal speech. Gait not assessed PSYCHIATRIC: Cooperative. Good eye contact. Appropriate mood and affect. SKIN: Warm, dry, Laboratory Results - last 24 hr 03/03/20 03/03/20 03/03/20 05:50 05:50 05:50 WBC 5.6 RBC 2.50 L Hgb 7.5 L Hct 23.6 L MCV 94.6 MCH 30.1 MCHC 31.8 L RDW 20.1 H Plt Count 70 L MPV 10.1 Sodium 140 Potassium 4.8 Chloride 102 Carbon Dioxide 32 Anion Gap 6 L BUN 29.1 H Creatinine 1.8 H Est GFR (CKD-EPI)AfAm 31.14 Est GFR (CKD-EPI)NonAf 26.87 Random Glucose 74 Hemoglobin A1c % < 3.5 L Lactic Acid Calcium 8.6 Iron 60 Total Bilirubin 1.9 H AST 40 H ALT 14 Alkaline Phosphatase 87 Ammonia Total Protein 6.5 Albumin 1.8 L Triglycerides 45 Cholesterol 79 Total LDL Cholesterol 40 HDL Cholesterol 24 L TSH 5.61 H Free T4 1.24 03/03/20 03/03/20 05:50 05:50 WBC RBC Hgb Hct MCV MCH MCHC RDW Plt Count MPV Sodium Potassium Chloride Carbon Dioxide Anion Gap BUN Creatinine Est GFR (CKD-EPI)AfAm Est GFR (CKD-EPI)NonAf Random Glucose Hemoglobin A1c % Lactic Acid 2.9 H* Calcium Iron Total Bilirubin AST ALT Alkaline Phosphatase Ammonia 21.00 Total Protein Albumin Triglycerides Cholesterol Total LDL Cholesterol HDL Cholesterol TSH Free T4 Active Medications Generic Name Dose Route Start Last Admin Trade Name Freq PRN Reason Stop Dose Admin Acetaminophen 650 mg 03/02/20 18:48 Tylenol - PO Q6H PRN FEVER Apixaban 2.5 mg 03/02/20 22:00 03/03/20 11:00 Eliquis - PO 2.5 mg BID [facility] Administration Artificial Tears 1 drop 03/02/20 18:48 Artificial Tears OU BID PRN DRY EYES Docusate Sodium 100 mg 03/02/20 18:48 Colace - PO BID PRN CONSTIPATION Furosemide 40 mg 03/03/20 17:00 Lasix Injection - IVPUSH BID@0600,1400 [facility] Lactulose 20 gm 03/03/20 14:00 03/03/20 14:27 Cephulac (Oral Use) PO 20 gm TID [facility] Administration Metoprolol Succinate 25 mg 03/03/20 10:00 03/03/20 10:28 Toprol Xl - PO Not Given DAILY [facility] Oxycodone HCl 5 mg 03/02/20 18:48 Roxicodone - PO Q6H PRN PAIN LEVEL 7 - 10 Rifaximin 550 mg 03/02/20 22:00 03/03/20 11:00 Xifaxan - PO 550 mg BID [facility] Administration Spironolactone 50 mg 03/04/20 10:00 Aldactone - PO DAILY [facility] ASSESSMENT/PLAN: Pt. is a 74 y.o. F w/ PMHx. of Cirrhosis(KING w/ ascites and Hx. of HE), HFpEF, Afib(on reduced? dose Eliquis), CKD (Stage 3), Venous insufficiency, HTN, Anemia, and Throbocytopenia presents for increased abdominal swelling. We have been called to assess Pt. for anemia. #Normocytic Anemia likely from anemia of chronic disease as Pt. has cirrhosis and CKD HgB currently lower than baseline f/u Iron studies, ferritin, B12, Folate, LDH, Direct Richards, Serial Stool occult blood, and reticulocytes to r/o GI bleed, hemolysis (elevated bilirubin) or ANISA GI consult appreciated for endoscopy and colonoscopy #Thrombocytopenia likely 2/2 cirrhosis Pt. is at baseline Platelets continue to monitor #DVT Ppx. c/w Eliquis as no overt contradindcation to hold at this time, monitor CBC Eliquis at reduced dose? Unclear why as Pt. is not under 60 kgs, is not over 90 and has Cr. under 2.5 Dispo: We will continue to follow the patient. Thank you for this consultative opportunity. Visit type - Emergency Visit Emergency Visit: Yes ED Registration Date: 03/02/20 Care time: The patient presented to the Emergency Department on the above date and was hospitalized for further evaluation of their emergent condition. - New Patient This patient is new to me today: Yes Date on this admission: 03/03/20 - Critical Care Critical Care patient: No ATTENDING PHYSICIAN STATEMENT I saw and evaluated the patient. I reviewed the resident's note and discussed the case with the resident. I agree with the resident's findings and plan as documented. SUBJECTIVE: OBJECTIVE: ASSESSMENT AND PLAN:
[2020-03-03] MEDS: FUROSEMIDE 40 MG/4 ML INJECTABLE VIAL IVPUSH SCH (18:53)
[2020-03-03 22:29] LABS: LDH 284 U/L (84-246)
[2020-03-03 22:30] LABS: IRON SERUM 50 ug/dL (50-175); TOTAL IRON BINDING CAPACITY 123 ug/dL (250-450)
--- NOTE | 2020-03-04 05:24 | PN ---
Teaching Attending Note Name of Resident: Gus Kelly ATTENDING PHYSICIAN STATEMENT I saw and evaluated the patient. I reviewed the resident's note and discussed the case with the resident. I agree with the resident's findings and plan as documented. ASSESSMENT AND PLAN: Pt. is a 74 y.o. F w/ PMHx. of Cirrhosis(KING w/ ascites and Hx. of HE), HFpEF, Afib(on reduced? dose Eliquis), CKD (Stage 3), Venous insufficiency, HTN, Anemia, and Thrombocytopenia presents for increased abdominal distention, Rt. flank pain. We have been called to assess Pt. for anemia. normocytic/normochromic anemia of chronic kidney diseased due to CKD/ cirrhosis iron studies suggestiv of chronic disease will check stool occult/consult GI ) colonoscopy > 10yrs. ago) Reverse AG ratio : ? liver disease. Check protein studies
[2020-03-04] MEDS: LACTULOSE 20 GM/30 ML UDC (FOR ORAL USE ONLY) PO SCH ×3 (05:39→21:47)
[2020-03-04] MEDS: FUROSEMIDE 40 MG/4 ML INJECTABLE VIAL IVPUSH SCH ×2 (05:40→13:28)
--- NOTE | 2020-03-04 08:32 | PN ---
Progress Note, Physician - Current Medication List Current Medications: Active Medications Acetaminophen (Tylenol -) 650 mg PO Q6H PRN PRN Reason: FEVER Apixaban (Eliquis -) 2.5 mg PO BID [facility] Last Admin: 03/03/20 23:46 Dose: 2.5 mg Documented by: Artificial Tears (Artificial Tears) 1 drop OU BID PRN PRN Reason: DRY EYES Docusate Sodium (Colace -) 100 mg PO BID PRN PRN Reason: CONSTIPATION Furosemide (Lasix Injection -) 40 mg IVPUSH BID@0600,1400 [facility] Last Admin: 03/04/20 05:40 Dose: 40 mg Documented by: Lactulose (Cephulac (Oral Use)) 20 gm PO TID [facility] Last Admin: 03/04/20 05:39 Dose: Not Given Documented by: Metoprolol Succinate (Toprol Xl -) 25 mg PO DAILY [facility] Last Admin: 03/03/20 10:28 Dose: Not Given Documented by: Oxycodone HCl (Roxicodone -) 5 mg PO Q6H PRN PRN Reason: PAIN LEVEL 7 - 10 Rifaximin (Xifaxan -) 550 mg PO BID [facility] Last Admin: 03/03/20 23:47 Dose: 550 mg Documented by: Spironolactone (Aldactone -) 50 mg PO DAILY [facility] - Objective Vital Signs: Vital Signs Temperature 98.4 F 03/04/20 02:28 Pulse Rate 71 03/04/20 02:28 Respiratory Rate 18 03/04/20 02:28 Blood Pressure 108/51 L 03/04/20 02:28 O2 Sat by Pulse Oximetry (%) 97 03/04/20 02:37 Cardiovascular: Yes: S1, S2 Respiratory: Yes: Regular, CTA Bilaterally Gastrointestinal: Yes: Normal Bowel Sounds, Soft, Ascites, Distention Edema: Yes Labs: CBC, BMP 03/03/20 05:50 03/03/20 05:50 INR, PTT INR 2.20 (0.83-1.09) H 03/02/20 14:15 Assessment/Plan - Problems (1) Afib Assessment/Plan: -Chronic, rate controlled -Continue Eliquis Problems reviewed: Yes Code(s): I48.91 - UNSPECIFIED ATRIAL FIBRILLATION (2) Anemia Assessment/Plan: -Chronic -2/2 to chronic liver disease -Monitor trend -Transfuse prn and monitor Problems reviewed: Yes Code(s): D64.9 - ANEMIA, UNSPECIFIED (3) CKD (chronic kidney disease) Assessment/Plan: -nephrology consult -resume furosemide 40 mg IVP daily -Resume Spironolactone dose per renal Problems reviewed: Yes Code(s): N18.9 - CHRONIC KIDNEY DISEASE, UNSPECIFIED (4) Cryptogenic cirrhosis Assessment/Plan: -GI consult -resume lactulose + rifaxamin Problems reviewed: Yes Code(s): K74.69 - OTHER CIRRHOSIS OF LIVER (5) Edema of abdominal wall Assessment/Plan: -IR consult for possible paracentesis Problems reviewed: Yes Code(s): R60.0 - LOCALIZED EDEMA (6) Lactic acidosis Assessment/Plan: -chronic -no signs of acute infection -afebrile -2/2 to CKD Problems reviewed: Yes Code(s): E87.2 - ACIDOSIS
[2020-03-04] MEDS ORDERED: PT OWN MED DRAWER 7, Y5N ONE ×3 (09:39→19:31)
[2020-03-04] MEDS ORDERED: SPIRONOLACTONE 25 MG TABLET PO SCH (10:00)
[2020-03-04] MEDS: APIXABAN 2.5 MG TABLET PO SCH ×2 (10:20→21:47)
[2020-03-04] MEDS: metoPROLOL SUCCINATE 25 MG TAB.SR.24H (FP) PO SCH (10:21)
[2020-03-04] MEDS: RIFAXIMIN 550 MG TABLET (UD) PO SCH ×2 (10:21→21:47)
[2020-03-04 10:38] LABS: BASO % 0.8 % (0-2.0); EOS % 2.4 % (0-4.5); HEMATOCRIT 27.8 % (32.4-45.2); HEMOGLOBIN 9.1 GM/dL (10.7-15.3); LYMPH % 21.6 % (8-40); MCH 30.9 pg (25.7-33.7); MCHC 32.8 g/dl (32.0-36.0); MEAN CELL VOLUME 94.1 fl (80-96); MEAN PLT VOLUME 10.7 fl (7.5-11.1); MONO % 8.8 % (3.8-10.2); NEUT % 66.4 % (42.8-82.8); PLATELET COUNT 78 K/MM3 (134-434); RBC 2.96 M/mm3 (3.60-5.2); RDW 19.4 % (11.6-15.6)
--- NOTE | 2020-03-04 10:39 | PN ---
Physical Exam: SUBJECTIVE: Patient seen and examined. Pt. endorses over 4.5 L of fluid removed. Pt. endorses decreased tenderness in the RUQ. Pt. denies any acute complaints at this time. OBJECTIVE: Vital Signs Period Temp Pulse Resp BP Sys/Patel Pulse Ox Last 24 Hr 98.4 F-98.4 F 66-72 18-22 92-108/42-53 97-97 GENERAL: Awake, alert, and fully oriented, in no acute distress. HEAD: Normal with no signs of trauma. EYES: Extraocular movements intact, sclera anicteric, conjunctiva clear. EARS, NOSE, THROAT: Moist mucous membranes. NECK: No lymphadenopathy, JVD, or masses. LUNGS: Breath sounds equal anteriorly, clear to auscultation bilaterally. No wheezes, and no crackles. HEART: Regular rate and rhythm, normal S1 and S2 with systolic murmur ABDOMEN: Soft, improved tenderness in abdomen, normoactive bowel sounds, increased tissue density in aforementioned areas? masses? anasarcic skin changes, dull to percussion MUSCULOSKELETAL: Decreased ROM of RUE UPPER EXTREMITIES: 2+ radial pulses, warm, well-perfused. LOWER EXTREMITIES: 2+ dorsal pedal pulses, warm, well-perfused. No calf tenderness. No peripheral edema. NEUROLOGICAL: No focal deficits. Normal speech. Ambulated with walker and close contact guard of 2 PSYCHIATRIC: Cooperative. Good eye contact. Appropriate mood and affect. SKIN: Warm, dry, Laboratory Results - last 24 hr 03/02/20 03/03/20 03/03/20 15:35 20:45 20:45 Retic Count Iron 50 TIBC 123 L Iron Saturation 40 H Unsaturated IBC 73 L Ferritin LD Total 284 H Vitamin B12 Serum Folate 30 H COVID-19 (RABIA) Not detected Blood Type Antibody Screen Direct Antiglob Test Positive H Crossmatch 03/03/20 03/03/20 03/03/20 20:45 20:45 20:45 Retic Count 3.27 H D Iron TIBC Iron Saturation Unsaturated IBC Ferritin 181.9 LD Total Vitamin B12 493 Serum Folate COVID-19 (RABIA) Blood Type O POSITIVE Antibody Screen Negative Direct Antiglob Test Crossmatch See Detail Active Medications Generic Name Dose Route Start Last Admin Trade Name Freq PRN Reason Stop Dose Admin Acetaminophen 650 mg 03/02/20 18:48 Tylenol - PO Q6H PRN FEVER Apixaban 2.5 mg 03/02/20 22:00 03/04/20 10:20 Eliquis - PO 2.5 mg BID [facility] Administration Artificial Tears 1 drop 03/02/20 18:48 Artificial Tears OU BID PRN DRY EYES Docusate Sodium 100 mg 03/02/20 18:48 Colace - PO BID PRN CONSTIPATION Furosemide 40 mg 03/03/20 17:00 03/04/20 05:40 Lasix Injection - IVPUSH 40 mg BID@0600,1400 [facility] Administration Lactulose 20 gm 03/03/20 14:00 03/04/20 05:39 Cephulac (Oral Use) PO Not Given TID [facility] Metoprolol Succinate 25 mg 03/03/20 10:00 03/04/20 10:21 Toprol Xl - PO Not Given DAILY [facility] Oxycodone HCl 5 mg 03/02/20 18:48 Roxicodone - PO Q6H PRN PAIN LEVEL 7 - 10 Rifaximin 550 mg 03/02/20 22:00 03/04/20 10:21 Xifaxan - PO 550 mg BID [facility] Administration Spironolactone 50 mg 03/04/20 10:00 03/04/20 10:21 Aldactone - PO Not Given DAILY [facility] ASSESSMENT/PLAN: Pt. is a 74 y.o. F w/ PMHx. of Cirrhosis(KING w/ ascites and Hx. of HE), HFpEF, Afib(on reduced? dose Eliquis), CKD (Stage 3), Venous insufficiency, HTN, Anemia, and Throbocytopenia presents for increased abdominal swelling. We have been called to assess Pt. for anemia. #Normocytic Anemia likely from anemia of chronic disease as Pt. has cirrhosis and CKD HgB currently lower than baseline lab studies consistent with anemia of chronic disease GI consult appreciated for endoscopy and colonoscopy #Thrombocytopenia likely 2/2 cirrhosis Pt. is at baseline Platelets continue to monitor #DVT Ppx. c/w Eliquis as no overt contradindcation to hold at this time, monitor CBC Eliquis at reduced dose? Unclear why as Pt. is not under 60 kgs, is not over 90 and has Cr. under 2.5, 2/2 cirrhosis? Visit type - Emergency Visit Emergency Visit: Yes ED Registration Date: 03/02/20 Care time: The patient presented to the Emergency Department on the above date and was hospitalized for further evaluation of their emergent condition. - New Patient This patient is new to me today: No - Critical Care Critical Care patient: No - Discharge Referral Referred to [facility] Med P.C.: No - Medication Review Med list reviewed for High Risk Meds patients 65 and older: Yes ATTENDING PHYSICIAN STATEMENT I saw and evaluated the patient. I reviewed the resident's note and discussed the case with the resident. I agree with the resident's findings and plan as documented. SUBJECTIVE: OBJECTIVE: ASSESSMENT AND PLAN:
[2020-03-04 11:07] LABS: ALBUMIN 2.1 g/dl (3.4-5.0); BILIRUBIN,TOTAL 3.2 mg/dL (0.2-1); BLOOD UREA NITROGEN 25.1 mg/dL (7-18); CALCIUM 8.7 mg/dL (8.5-10.1); CREATININE 1.7 mg/dL (0.55-1.3); POTASSIUM 4.2 mmol/L (3.5-5.1); TOT PROT 7.2 g/dl (6.4-8.2)
--- NOTE | 2020-03-04 11:46 | PN ---
Progress Note, Physician History of Present Illness: pulmonary alert,oob-chair,feeling better,less sob - Current Medication List Current Medications: Active Medications Acetaminophen (Tylenol -) 650 mg PO Q6H PRN PRN Reason: FEVER Apixaban (Eliquis -) 2.5 mg PO BID [facility] Last Admin: 03/04/20 10:20 Dose: 2.5 mg Documented by: Artificial Tears (Artificial Tears) 1 drop OU BID PRN PRN Reason: DRY EYES Docusate Sodium (Colace -) 100 mg PO BID PRN PRN Reason: CONSTIPATION Furosemide (Lasix Injection -) 40 mg IVPUSH BID@0600,1400 [facility] Last Admin: 03/04/20 05:40 Dose: 40 mg Documented by: Lactulose (Cephulac (Oral Use)) 20 gm PO TID [facility] Last Admin: 03/04/20 05:39 Dose: Not Given Documented by: Metoprolol Succinate (Toprol Xl -) 25 mg PO DAILY [facility] Last Admin: 03/04/20 10:21 Dose: Not Given Documented by: Oxycodone HCl (Roxicodone -) 5 mg PO Q6H PRN PRN Reason: PAIN LEVEL 7 - 10 Rifaximin (Xifaxan -) 550 mg PO BID [facility] Last Admin: 03/04/20 10:21 Dose: 550 mg Documented by: Spironolactone (Aldactone -) 50 mg PO DAILY [facility] Last Admin: 03/04/20 10:21 Dose: Not Given Documented by: - Objective Vital Signs: Vital Signs Temperature 98.4 F 03/04/20 02:28 Pulse Rate 71 03/04/20 02:28 Respiratory Rate 18 03/04/20 02:28 Blood Pressure 108/51 L 03/04/20 02:28 O2 Sat by Pulse Oximetry (%) 97 03/04/20 02:37 Constitutional: Yes: Well Nourished, Calm Eyes: Yes: WNL HENT: Yes: WNL Neck: Yes: WNL Cardiovascular: Yes: Pulse Irregular, S1, S2 Respiratory: Yes: Diminished Gastrointestinal: Yes: Normal Bowel Sounds, Soft, Ascites Extremities: Yes: WNL Edema: Yes Labs: CBC, BMP 03/04/20 09:38 03/04/20 09:38 INR, PTT INR 2.20 (0.83-1.09) H 03/02/20 14:15 Assessment/Plan Problem List - Problems (1) Afib Code(s): I48.91 - UNSPECIFIED ATRIAL FIBRILLATION (2) Anemia Code(s): D64.9 - ANEMIA, UNSPECIFIED (3) Ascites Code(s): R18.8 - OTHER ASCITES Qualifiers: Ascites type: other type Qualified Code(s): R18.8 - Other ascites (4) CKD (chronic kidney disease) Code(s): N18.9 - CHRONIC KIDNEY DISEASE, UNSPECIFIED (5) Chronic liver disease and cirrhosis Code(s): K74.60 - UNSPECIFIED CIRRHOSIS OF LIVER; K76.9 - LIVER DISEASE, UNS PECIFIED (6) Cirrhosis of liver with ascites Code(s): K74.60 - UNSPECIFIED CIRRHOSIS OF LIVER; R18.8 - OTHER ASCITES (7) Cor pulmonale Code(s): I27.81 - COR PULMONALE (CHRONIC) (8) Cryptogenic cirrhosis Code(s): K74.69 - OTHER CIRRHOSIS OF LIVER (9) Edema Code(s): R60.9 - EDEMA, UNSPECIFIED (10) Edema of abdominal wall Code(s): R60.0 - LOCALIZED EDEMA (11) HTN (hypertension) Code(s): I10 - ESSENTIAL (PRIMARY) HYPERTENSION (12) Hypotension Code(s): I95.9 - HYPOTENSION, UNSPECIFIED (13) 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 Assessment/Plan IMP: SHOOK referable to a restrictive process due to ascites due to Cryptogenic Cirrhosis PLAN: Diuresis Supplemental O2 as needed May benefit from paracentesis Strict I+Os No smoking Rifaxamin Lactulose DR DOLAN
--- NOTE | 2020-03-04 12:10 | PN ---
Progress Note, Physician History of Present Illness: Pt seen and examined at bedside. She is out of bed to chair. She complains of edema and ascites. - Current Medication List Current Medications: Active Medications Acetaminophen (Tylenol -) 650 mg PO Q6H PRN PRN Reason: FEVER Apixaban (Eliquis -) 2.5 mg PO BID [facility] Last Admin: 03/04/20 10:20 Dose: 2.5 mg Documented by: Artificial Tears (Artificial Tears) 1 drop OU BID PRN PRN Reason: DRY EYES Docusate Sodium (Colace -) 100 mg PO BID PRN PRN Reason: CONSTIPATION Furosemide (Lasix Injection -) 40 mg IVPUSH BID@0600,1400 [facility] Last Admin: 03/04/20 05:40 Dose: 40 mg Documented by: Lactulose (Cephulac (Oral Use)) 20 gm PO TID [facility] Last Admin: 03/04/20 05:39 Dose: Not Given Documented by: Metoprolol Succinate (Toprol Xl -) 25 mg PO DAILY [facility] Last Admin: 03/04/20 10:21 Dose: Not Given Documented by: Oxycodone HCl (Roxicodone -) 5 mg PO Q6H PRN PRN Reason: PAIN LEVEL 7 - 10 Rifaximin (Xifaxan -) 550 mg PO BID [facility] Last Admin: 03/04/20 10:21 Dose: 550 mg Documented by: Spironolactone (Aldactone -) 50 mg PO DAILY [facility] Last Admin: 03/04/20 10:21 Dose: Not Given Documented by: - Objective Vital Signs: Vital Signs Temperature 97.9 F 03/04/20 09:00 Pulse Rate 72 03/04/20 09:00 Respiratory Rate 18 03/04/20 09:00 Blood Pressure 100/57 L 03/04/20 09:00 O2 Sat by Pulse Oximetry (%) 95 03/04/20 09:00 Constitutional: Yes: Calm Eyes: Yes: Conjunctiva Clear HENT: Yes: Atraumatic Neck: Yes: Supple Cardiovascular: Yes: S1, S2 Respiratory: Yes: CTA Bilaterally Gastrointestinal: Yes: Soft, Abdomen, Obese, Ascites Genitourinary: Yes: WNL Musculoskeletal: Yes: WNL Edema: Yes Edema: LLE: 2+, RLE: 2+ Neurological: Yes: Oriented Psychiatric: Yes: Oriented Labs: CBC, BMP 03/04/20 09:38 03/04/20 09:38 INR, PTT INR 2.20 (0.83-1.09) H 03/02/20 14:15 Problem List - Problems (1) CHF (congestive heart failure) Code(s): I50.9 - HEART FAILURE, UNSPECIFIED Qualifiers: Heart failure type: unspecified Heart failure chronicity: unspecified Qualified Code(s): I50.9 - Heart failure, unspecified (2) Lactic acidosis Code(s): E87.2 - ACIDOSIS Assessment/Plan Current Medications Generic Name Dose Route Start Last Admin Trade Name Freq PRN Reason Stop Dose Admin Acetaminophen 650 mg 03/02/20 18:48 Tylenol - PO Q6H PRN FEVER Apixaban 2.5 mg 03/02/20 22:00 03/04/20 10:20 Eliquis - PO 2.5 mg BID TAMMY Administration Artificial Tears 1 drop 03/02/20 18:48 Artificial Tears OU BID PRN DRY EYES Docusate Sodium 100 mg 03/02/20 18:48 Colace - PO BID PRN CONSTIPATION Furosemide 40 mg 03/03/20 17:00 03/04/20 05:40 Lasix Injection - IVPUSH 40 mg BID@0600,1400 TAMMY Administration Lactulose 20 gm 03/03/20 14:00 03/04/20 05:39 Cephulac (Oral Use) PO Not Given TID [facility] Metoprolol Succinate 25 mg 03/03/20 10:00 03/04/20 10:21 Toprol Xl - PO Not Given DAILY TAMMY Oxycodone HCl 5 mg 03/02/20 18:48 Roxicodone - PO Q6H PRN PAIN LEVEL 7 - 10 Rifaximin 550 mg 03/02/20 22:00 03/04/20 10:21 Xifaxan - PO 550 mg BID TAMMY Administration Spironolactone 50 mg 03/04/20 10:00 03/04/20 10:21 Aldactone - PO Not Given DAILY [facility] Impression 1. CKD 2. ascites 3. liver cirrhosis 4. ileus 5. microscopic hematuria 6. fluid overload 7. a-fib 8. hyperkalemia Plan - cont lasix - resume aldactone - monitor volume status - GI follow up - monitor lytes - keep in negative fluid balance
[2020-03-04 12:11] LABS: INR 2.11 (0.83-1.09); PROTHROMBIN TIME (PATIENT) 25.1 SEC (9.7-13.0)
[2020-03-04] MEDS ORDERED: ACETAMINOPHEN 325 MG TABLET (FP) PO PRN (20:04)
[2020-03-04] MEDS ORDERED: oxyCODONE HCL 5 MG TABLET PO PRN (20:04)
[2020-03-04] MEDS ORDERED: DOCUSATE SODIUM 100 MG CAPSULE (FP) PO PRN (20:04)
[2020-03-04] MEDS ORDERED: ARTIFICIAL TEARS (POLYVINYL ALCOHOL) OPTH DROPS OU PRN (20:04)
--- NOTE | 2020-03-04 21:52 | CON.GI ---
Consult Consult Specialty:: Gastroenterology Referred by:: Kelsie Montero NP Reason for Consultation:: Ascites - History of Present Illness Chief Complaint: Increased abdominal girth and lower extremity edema History of Present Illness: 74F with cirrhosis felt to be secondary to KING and h/o ascites and hepatic encephalopathy is readmitted for management of ascites and lower extremity edema. 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: Other Cardio/Vascular: Yes: AFIB (paroxysmal NADIA), CHF, HTN, Other Gastrointestinal: Yes: Ascites Hepatobiliary: Yes: Cirrhosis (likely due to KING with ascites and hepatic encephalopathy) Renal/: Yes: Renal Inusuff ...: No Infectious Disease: Yes: Other (Strep mitis bacteremia) - Past Surgical History Past Surgical History: Yes: None - Alcohol/Substance Use Hx Alcohol Use: No History of Substance Use: reports: None - Smoking History Smoking history: Never smoked Have you smoked in the past 12 months: No Aproximately how many cigarettes per day: 0 - Social History Usual Living Arrangement: Longterm 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 ([employer] 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 History of Recent Travel: No Home Medications - Allergies Allergies/Adverse Reactions: Allergies Allergy/AdvReac Type Severity Reaction Status Date / Time No Known Allergies Allergy Verified 03/02/20 12:42 - Home Medications Home Medications: Ambulatory Orders Acetaminophen [Tylenol .Extra-Strength -] 1,000 mg PO Q6H PRN #240 tablet 01/31/20 Amino Acids/Protein Hydrolys [Prosource No Carb Liquid Pkt] 30 ml PO BID #1800 ml 01/31/20 Lactulose 10 gm PO TID #1350 ml 01/31/20 Metoprolol Succinate [Toprol XL -] 25 mg PO DAILY #30 tab.sr.24h 02/01/20 Rifaximin [Xifaxan] 550 mg PO BID #60 tablet 02/05/20 Apixaban [Eliquis -] 2.5 mg PO BID #60 tablet 02/21/20 Furosemide [Lasix -] 40 mg PO DAILY tablet 02/21/20 Polyvinyl Alcohol [Artificial Tears] 1 drop OS BID PRN drops 02/21/20 Spironolactone [Aldactone -] 25 mg PO BID tablet 02/21/20 Ascorbate Calcium [Vitamin C] 500 mg PO DAILY 03/02/20 Folic Acid 1 mg PO DAILY 03/02/20 Oxycodone HCl 5 mg PO BID PRN 03/02/20 Zinc Oxide 1 applic TP BID 03/02/20 Zinc Sulfate 220 mg PO DAILY 03/02/20 Physical Exam-GI Vital Signs: Vital Signs Temperature 98.9 F 03/04/20 20:14 Pulse Rate 77 03/04/20 20:14 Respiratory Rate 20 03/04/20 20:14 Blood Pressure 110/62 03/04/20 20:14 O2 Sat by Pulse Oximetry (%) 98 03/04/20 20:14 CBC,CMP WBC 8.0 K/mm3 (4.0-10.0) 03/04/20 09:38 RBC 2.96 M/mm3 (3.60-5.2) L 03/04/20 09:38 Hgb 9.1 GM/dL (10.7-15.3) L 03/04/20 09:38 Hct 27.8 % (32.4-45.2) L D 03/04/20 09:38 MCV 94.1 fl (80-96) 03/04/20 09:38 MCH 30.9 pg (25.7-33.7) 03/04/20 09:38 MCHC 32.8 g/dl (32.0-36.0) 03/04/20 09:38 RDW 19.4 % (11.6-15.6) H 03/04/20 09:38 Plt Count 78 K/MM3 (134-434) L 03/04/20 09:38 MPV 10.7 fl (7.5-11.1) 03/04/20 09:38 Absolute Neuts (auto) 5.3 K/mm3 (1.5-8.0) 03/04/20 09:38 Neutrophils % 66.4 % (42.8-82.8) 03/04/20 09:38 Lymphocytes % 21.6 % (8-40) D 03/04/20 09:38 Monocytes % 8.8 % (3.8-10.2) 03/04/20 09:38 Eosinophils % 2.4 % (0-4.5) 03/04/20 09:38 Basophils % 0.8 % (0-2.0) 03/04/20 09:38 Nucleated RBC % 0 % (0-0) 03/04/20 09:38 Retic Count 3.27 % (0.5-1.5) H D 03/03/20 20:45 Sodium 138 mmol/L (136-145) 03/04/20 09:38 Potassium 4.2 mmol/L (3.5-5.1) 03/04/20 09:38 Chloride 100 mmol/L (98-107) 03/04/20 09:38 Carbon Dioxide 32 mmol/L (21-32) 03/04/20 09:38 Anion Gap 7 MMOL/L (8-16) L 03/04/20 09:38 BUN 25.1 mg/dL (7-18) H 03/04/20 09:38 Creatinine 1.7 mg/dL (0.55-1.3) H 03/04/20 09:38 Est GFR (CKD-EPI)AfAm 33.37 03/04/20 09:38 Est GFR (CKD-EPI)NonAf 28.79 03/04/20 09:38 Random Glucose 74 mg/dL (74-106) 03/04/20 09:38 Hemoglobin A1c % < 3.5 % (4.2-6.3) L 03/03/20 05:50 Lactic Acid 2.4 mmol/L (0.4-2.0) H* 03/04/20 09:38 Calcium 8.7 mg/dL (8.5-10.1) 03/04/20 09:38 Iron 50 ug/dL (50-175) 03/03/20 20:45 TIBC 123 ug/dL (250-450) L 03/03/20 20:45 Iron Saturation 40 % (17.5-39) H 03/03/20 20:45 Unsaturated IBC 73 ug/dL (200-275) L 03/03/20 20:45 Ferritin 181.9 ng/ml (8-388) 03/03/20 20:45 Total Bilirubin 3.2 mg/dL (0.2-1) H 03/04/20 09:38 AST 47 U/L (15-37) H 03/04/20 09:38 ALT 18 U/L (13-61) 03/04/20 09:38 Alkaline Phosphatase 97 U/L (45-117) 03/04/20 09:38 Ammonia 35.70 umol/L (11-32) H 03/04/20 09:38 LD Total 284 U/L (84-246) H 03/03/20 20:45 Creatine Kinase 100 U/L (26-192) 03/02/20 14:15 Troponin I < 0.02 ng/ml (0.00-0.05) 03/02/20 14:15 B-Natriuretic Peptide 697.8 pg/ml (5-450) H 03/02/20 14:15 Total Protein 7.2 g/dl (6.4-8.2) 03/04/20 09:38 Albumin 2.1 g/dl (3.4-5.0) L 03/04/20 09:38 Triglycerides 45 mg/dL (0-150) 03/03/20 05:50 Cholesterol 79 mg/dL (50-200) 03/03/20 05:50 Total LDL Cholesterol 40 mg/dL (5-100) 03/03/20 05:50 HDL Cholesterol 24 mg/dL (40-60) L 03/03/20 05:50 Lipase 114 U/L (73-393) 03/02/20 14:15 Vitamin B12 493 pg/ml (193-986) 03/03/20 20:45 Serum Folate 30 ng/mL (3.1-17.5) H 03/03/20 20:45 TSH 5.61 uIU/ml (0.358-3.74) H 03/03/20 05:50 Free T4 1.24 ng/dl (0.76-1.46) 03/03/20 05:50 Current Medications Generic Name Dose Route Start Last Admin Trade Name Freq PRN Reason Stop Dose Admin Acetaminophen 650 mg 03/04/20 20:04 Tylenol - PO Q6H PRN FEVER Apixaban 2.5 mg 03/04/20 22:00 Eliquis - PO BID TAMMY Artificial Tears 1 drop 03/04/20 20:04 Artificial Tears OU BID PRN DRY EYES Docusate Sodium 100 mg 03/04/20 20:04 Colace - PO BID PRN CONSTIPATION Furosemide 40 mg 03/05/20 06:00 Lasix Injection - IVPUSH BID@0600,1400 TAMMY Lactulose 20 gm 03/04/20 22:00 Cephulac (Oral Use) PO TID [facility] Metoprolol Succinate 25 mg 03/05/20 10:00 Toprol Xl - PO DAILY [facility] Oxycodone HCl 5 mg 03/04/20 20:04 Roxicodone - PO Q6H PRN PAIN LEVEL 7 - 10 Rifaximin 550 mg 03/04/20 22:00 Xifaxan - PO BID TAMMY Spironolactone 50 mg 03/05/20 10:00 Aldactone - PO DAILY [facility] Constitutional: Yes: Calm Eyes: Yes: Conjunctiva Clear HENT: Yes: Atraumatic Neck: Yes: Supple Cardiovascular: Yes: Regular Rate and Rhythm Respiratory: Yes: Dullness (at bases) Gastrointestinal Inspection: Yes: Distention, Other (lower abdominal wall edema) ...Auscultate: Yes: Hypoactive Bowel Sounds ...Palpate: Yes: Soft, Other ...Rectal Exam: Yes: Deferred (recently done) Labs: CBC, BMP 03/04/20 09:38 03/04/20 09:38 INR, PTT INR 2.11 (0.83-1.09) H 03/04/20 11:50 Problem List - Problems (1) 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 steatohepatitis) Code(s): K75.81 - NONALCOHOLIC STEATOHEPATITIS (KING); K74.60 - UNSPECIFIED CIRRHOSIS OF LIVER (2) Portal vein thrombosis Code(s): I81 - PORTAL VEIN THROMBOSIS (3) Thrombocytopenia Code(s): D69.6 - THROMBOCYTOPENIA, UNSPECIFIED (4) Hepatic encephalopathy Code(s): K72.90 - HEPATIC FAILURE, UNSPECIFIED WITHOUT COMA (5) Edema Code(s): R60.9 - EDEMA, UNSPECIFIED (6) CKD (chronic kidney disease) Code(s): N18.9 - CHRONIC KIDNEY DISEASE, UNSPECIFIED (7) Cirrhosis of liver with ascites Code(s): K74.60 - UNSPECIFIED CIRRHOSIS OF LIVER; R18.8 - OTHER ASCITES (8) Edema of abdominal wall Code(s): R60.0 - LOCALIZED EDEMA (9) Paroxysmal atrial fibrillation with rapid ventricular response Code(s): I48.0 - PAROXYSMAL ATRIAL FIBRILLATION Assessment/Plan Impression: - Cirrhosis seconmdary to KING with hepatic encephalopathy, thrombocytopenia, portal vein thrombosis and ascites that is proving to be refractory to oral diuretics ( Maya tells me that no food is brought into the NH by family or friends) in the setting of CKD and risk of lapsing onto hepatorenal syndrome Plan: - Diuretic regimen as already started by Dr Ramesh - Her hepatic encephalopathy precludes TIPS which will aggravate it and perhaps make it refractory. I spoke with her son and gave him the name of Dr Gus Humphries the director of the [facility] to get another opinion on this and whether or not she is a candidate for a transplant at this advanced age and with portal vein thrombosis. He will try to arrange an outpatient consultation
[2020-03-05] MEDS: FUROSEMIDE 40 MG/4 ML INJECTABLE VIAL IVPUSH SCH ×2 (06:10→14:19)
[2020-03-05] MEDS: LACTULOSE 20 GM/30 ML UDC (FOR ORAL USE ONLY) PO SCH ×3 (06:10→21:30)
--- NOTE | 2020-03-05 09:00 | PN ---
Progress Note, Physician - Current Medication List Current Medications: Active Medications Acetaminophen (Tylenol -) 650 mg PO Q6H PRN PRN Reason: FEVER Apixaban (Eliquis -) 2.5 mg PO BID [facility] Last Admin: 03/04/20 21:47 Dose: 2.5 mg Documented by: Artificial Tears (Artificial Tears) 1 drop OU BID PRN PRN Reason: DRY EYES Docusate Sodium (Colace -) 100 mg PO BID PRN PRN Reason: CONSTIPATION Furosemide (Lasix Injection -) 40 mg IVPUSH BID@0600,1400 [facility] Last Admin: 03/05/20 06:10 Dose: 40 mg Documented by: Lactulose (Cephulac (Oral Use)) 20 gm PO TID [facility] Last Admin: 03/05/20 06:10 Dose: 20 gm Documented by: Metoprolol Succinate (Toprol Xl -) 25 mg PO DAILY [facility] Oxycodone HCl (Roxicodone -) 5 mg PO Q6H PRN PRN Reason: PAIN LEVEL 7 - 10 Rifaximin (Xifaxan -) 550 mg PO BID [facility] Last Admin: 03/04/20 21:47 Dose: 550 mg Documented by: Spironolactone (Aldactone -) 50 mg PO DAILY [facility] - Objective Vital Signs: Vital Signs Temperature 98.7 F 03/05/20 05:58 Pulse Rate 87 03/05/20 05:58 Respiratory Rate 20 03/05/20 05:58 Blood Pressure 93/49 L 03/05/20 05:58 O2 Sat by Pulse Oximetry (%) 98 03/04/20 21:00 Cardiovascular: Yes: Regular Rate and Rhythm Respiratory: Yes: Regular, CTA Bilaterally Gastrointestinal: Yes: Normal Bowel Sounds, Soft, Ascites, Distention Edema: Yes Labs: CBC, BMP 03/04/20 09:38 03/04/20 09:38 INR, PTT INR 2.11 (0.83-1.09) H 03/04/20 11:50 Assessment/Plan - Problems (1) Afib Assessment/Plan: -Chronic, rate controlled -Continue Eliquis Problems reviewed: Yes Code(s): I48.91 - UNSPECIFIED ATRIAL FIBRILLATION (2) Anemia Assessment/Plan: -Chronic -2/2 to chronic liver disease -Monitor trend -Transfuse prn and monitor Problems reviewed: Yes Code(s): D64.9 - ANEMIA, UNSPECIFIED (3) CKD (chronic kidney disease) Assessment/Plan: -nephrology consult -resume furosemide 40 mg IVP daily -Resume Spironolactone dose per renal Problems reviewed: Yes Code(s): N18.9 - CHRONIC KIDNEY DISEASE, UNSPECIFIED (4) Cryptogenic cirrhosis Assessment/Plan: -GI consult appreciated -resume lactulose + rifaxamin Problems reviewed: Yes Code(s): K74.69 - OTHER CIRRHOSIS OF LIVER (5) Edema of abdominal wall Assessment/Plan: -IR consult for possible paracentesis Problems reviewed: Yes Code(s): R60.0 - LOCALIZED EDEMA (6) Lactic acidosis Assessment/Plan: -chronic -no signs of acute infection -afebrile -2/2 to CKD Problems reviewed: Yes Code(s): E87.2 - ACIDOSIS
[2020-03-05] MEDS: RIFAXIMIN 550 MG TABLET (UD) PO SCH ×2 (09:35→21:30)
[2020-03-05] MEDS: SPIRONOLACTONE 25 MG TABLET PO SCH (09:35)
[2020-03-05] MEDS: APIXABAN 2.5 MG TABLET PO SCH (09:35)
[2020-03-05] MEDS: metoPROLOL SUCCINATE 25 MG TAB.SR.24H (FP) PO SCH (09:35)
[2020-03-05 10:03] LABS: BASO % 0.4 % (0-2.0); EOS % 1.3 % (0-4.5); HEMATOCRIT 26.3 % (32.4-45.2); HEMOGLOBIN 8.7 GM/dL (10.7-15.3); LYMPH % 15.1 % (8-40); MCH 31.2 pg (25.7-33.7); MEAN CELL VOLUME 94.6 fl (80-96); MEAN PLT VOLUME 10.5 fl (7.5-11.1); MONO % 8.8 % (3.8-10.2); NEUT % 74.4 % (42.8-82.8); PLATELET COUNT 69 K/MM3 (134-434); RBC 2.78 M/mm3 (3.60-5.2); RDW 19.6 % (11.6-15.6); WHITE BLOOD COUNT 8.3 K/mm3 (4.0-10.0)
[2020-03-05 10:16] LABS: INR 2.14 (0.83-1.09); PROTHROMBIN TIME (PATIENT) 25.4 SEC (9.7-13.0)
[2020-03-05 10:19] LABS: ACTIVATED PTT 44.1 SECONDS (25.2-36.5)
--- NOTE | 2020-03-05 11:35 | PN ---
Physical Exam: SUBJECTIVE: Patient seen and examined. Pt. denies any acute complaints. OBJECTIVE: Vital Signs Period Temp Pulse Resp BP Sys/Patel Pulse Ox Last 24 Hr 98.4 F-98.9 F 69-87 18-20 93-110/47-68 98-98 GENERAL: Awake, alert, and fully oriented, in no acute distress. HEAD: Normal with no signs of trauma. EYES: Extraocular movements intact, sclera anicteric, conjunctiva clear. EARS, NOSE, THROAT: Moist mucous membranes. NECK: No lymphadenopathy, JVD, or masses. LUNGS: Breath sounds equal anteriorly, clear to auscultation bilaterally. No wheezes, and no crackles. HEART: Regular rate and rhythm, normal S1 and S2 with systolic murmur ABDOMEN: Soft, improved tenderness in abdomen, normoactive bowel sounds, increased tissue density in aforementioned areas? masses? anasarcic skin changes, dull to percussion MUSCULOSKELETAL: Decreased ROM of RUE UPPER EXTREMITIES: 2+ radial pulses, warm, well-perfused. LOWER EXTREMITIES: 2+ dorsal pedal pulses, warm, well-perfused. No calf tenderness. No peripheral edema. NEUROLOGICAL: No focal deficits. Normal speech. Ambulated with walker and close contact guard of 2 PSYCHIATRIC: Cooperative. Good eye contact. Appropriate mood and affect. SKIN: Warm, dry, Laboratory Results - last 24 hr 03/04/20 03/05/20 03/05/20 11:50 07:40 09:27 WBC 8.3 RBC 2.78 L Hgb 8.7 L Hct 26.3 L MCV 94.6 MCH 31.2 MCHC 33.0 RDW 19.6 H Plt Count 69 L MPV 10.5 Absolute Neuts (auto) 6.1 Neutrophils % 74.4 Lymphocytes % 15.1 D Monocytes % 8.8 Eosinophils % 1.3 Basophils % 0.4 Nucleated RBC % 0 PT with INR 25.10 H INR 2.11 H PTT (Actin FS) Stool Occult Blood Negative 03/05/20 09:27 WBC RBC Hgb Hct MCV MCH MCHC RDW Plt Count MPV Absolute Neuts (auto) Neutrophils % Lymphocytes % Monocytes % Eosinophils % Basophils % Nucleated RBC % PT with INR 25.40 H INR 2.14 H PTT (Actin FS) 44.1 H Stool Occult Blood Active Medications Generic Name Dose Route Start Last Admin Trade Name Freq PRN Reason Stop Dose Admin Acetaminophen 650 mg 03/04/20 20:04 Tylenol - PO Q6H PRN FEVER Apixaban 2.5 mg 03/04/20 22:00 03/05/20 09:35 Eliquis - PO 2.5 mg BID TAMMY Administration Artificial Tears 1 drop 03/04/20 20:04 Artificial Tears OU BID PRN DRY EYES Docusate Sodium 100 mg 03/04/20 20:04 Colace - PO BID PRN CONSTIPATION Furosemide 40 mg 03/05/20 06:00 03/05/20 06:10 Lasix Injection - IVPUSH 40 mg BID@0600,1400 TAMMY Administration Lactulose 20 gm 03/04/20 22:00 03/05/20 06:10 Cephulac (Oral Use) PO 20 gm TID TAMMY Administration Metoprolol Succinate 25 mg 03/05/20 10:00 03/05/20 09:35 Toprol Xl - PO 25 mg DAILY TAMMY Administration Oxycodone HCl 5 mg 03/04/20 20:04 Roxicodone - PO Q6H PRN PAIN LEVEL 7 - 10 Rifaximin 550 mg 03/04/20 22:00 03/05/20 09:35 Xifaxan - PO 550 mg BID TAMMY Administration Spironolactone 50 mg 03/05/20 10:00 03/05/20 09:35 Aldactone - PO 50 mg DAILY TAMMY Administration ASSESSMENT/PLAN: Pt. is a 74 y.o. F w/ PMHx. of Cirrhosis(KING w/ ascites and Hx. of HE), HFpEF, Afib(on reduced? dose Eliquis), CKD (Stage 3), Venous insufficiency, HTN, Anemia, and Throbocytopenia presents for increased abdominal swelling. We have been called to assess Pt. for anemia. #Normocytic Anemia likely from anemia of chronic disease as Pt. has cirrhosis and CKD HgB currently lower than baseline lab studies consistent with anemia of chronic disease GI consult appreciated. Pt. recommended to follow up at [facility] #Thrombocytopenia likely 2/2 cirrhosis Pt. is at baseline Platelets continue to monitor #DVT Ppx. c/w Eliquis as no overt contradindcation to hold at this time, monitor CBC Eliquis at reduced dose? Unclear why as Pt. is not under 60 kgs, is not over 90 and has Cr. under 2.5, 2/2 cirrhosis? Visit type - Emergency Visit Emergency Visit: Yes ED Registration Date: 03/02/20 Care time: The patient presented to the Emergency Department on the above date and was hospitalized for further evaluation of their emergent condition. - New Patient This patient is new to me today: No - Critical Care Critical Care patient: No - Discharge Referral Referred to [facility] Med P.C.: No - Medication Review Med list reviewed for High Risk Meds patients 65 and older: Yes ATTENDING PHYSICIAN STATEMENT I saw and evaluated the patient. I reviewed the resident's note and discussed the case with the resident. I agree with the resident's findings and plan as documented. SUBJECTIVE: OBJECTIVE: ASSESSMENT AND PLAN:
--- NOTE | 2020-03-05 13:13 | PN ---
Progress Note, Physician History of Present Illness: Pt seen and examined at bedside. She is awake and alert. She feels better than yesterday. She feels that her edema is improving. - Current Medication List Current Medications: Active Medications Acetaminophen (Tylenol -) 650 mg PO Q6H PRN PRN Reason: FEVER Apixaban (Eliquis -) 2.5 mg PO BID [facility] Last Admin: 03/05/20 09:35 Dose: 2.5 mg Documented by: Artificial Tears (Artificial Tears) 1 drop OU BID PRN PRN Reason: DRY EYES Docusate Sodium (Colace -) 100 mg PO BID PRN PRN Reason: CONSTIPATION Furosemide (Lasix Injection -) 40 mg IVPUSH BID@0600,1400 [facility] Last Admin: 03/05/20 06:10 Dose: 40 mg Documented by: Lactulose (Cephulac (Oral Use)) 20 gm PO TID [facility] Last Admin: 03/05/20 06:10 Dose: 20 gm Documented by: Metoprolol Succinate (Toprol Xl -) 25 mg PO DAILY [facility] Last Admin: 03/05/20 09:35 Dose: 25 mg Documented by: Oxycodone HCl (Roxicodone -) 5 mg PO Q6H PRN PRN Reason: PAIN LEVEL 7 - 10 Rifaximin (Xifaxan -) 550 mg PO BID [facility] Last Admin: 03/05/20 09:35 Dose: 550 mg Documented by: Spironolactone (Aldactone -) 50 mg PO DAILY [facility] Last Admin: 03/05/20 09:35 Dose: 50 mg Documented by: - Objective Vital Signs: Vital Signs Temperature 98.4 F 03/05/20 09:00 Pulse Rate 82 03/05/20 09:00 Respiratory Rate 19 03/05/20 09:00 Blood Pressure 108/56 L 03/05/20 09:00 O2 Sat by Pulse Oximetry (%) 97 03/05/20 09:00 Constitutional: Yes: Calm Eyes: Yes: Conjunctiva Clear HENT: Yes: Atraumatic Neck: Yes: Supple Cardiovascular: Yes: S1, S2 Respiratory: Yes: CTA Bilaterally Gastrointestinal: Yes: Soft, Ascites Genitourinary: Yes: WNL Musculoskeletal: Yes: WNL Edema: Yes Edema: LLE: 2+, RLE: 2+ Neurological: Yes: Oriented Psychiatric: Yes: Oriented Labs: CBC, BMP 03/05/20 09:27 03/04/20 09:38 INR, PTT INR 2.14 (0.83-1.09) H 03/05/20 09:27 Problem List - Problems (1) CHF (congestive heart failure) Code(s): I50.9 - HEART FAILURE, UNSPECIFIED Qualifiers: Heart failure type: unspecified Heart failure chronicity: unspecified Qualified Code(s): I50.9 - Heart failure, unspecified (2) Lactic acidosis Code(s): E87.2 - ACIDOSIS Assessment/Plan Current Medications Generic Name Dose Route Start Last Admin Trade Name Freq PRN Reason Stop Dose Admin Acetaminophen 650 mg 03/04/20 20:04 Tylenol - PO Q6H PRN FEVER Apixaban 2.5 mg 03/04/20 22:00 03/05/20 09:35 Eliquis - PO 2.5 mg BID TAMMY Administration Artificial Tears 1 drop 03/04/20 20:04 Artificial Tears OU BID PRN DRY EYES Docusate Sodium 100 mg 03/04/20 20:04 Colace - PO BID PRN CONSTIPATION Furosemide 40 mg 03/05/20 06:00 03/05/20 06:10 Lasix Injection - IVPUSH 40 mg BID@0600,1400 TAMMY Administration Lactulose 20 gm 03/04/20 22:00 03/05/20 06:10 Cephulac (Oral Use) PO 20 gm TID TAMMY Administration Metoprolol Succinate 25 mg 03/05/20 10:00 03/05/20 09:35 Toprol Xl - PO 25 mg DAILY TAMMY Administration Oxycodone HCl 5 mg 03/04/20 20:04 Roxicodone - PO Q6H PRN PAIN LEVEL 7 - 10 Rifaximin 550 mg 03/04/20 22:00 03/05/20 09:35 Xifaxan - PO 550 mg BID TAMMY Administration Spironolactone 50 mg 03/05/20 10:00 03/05/20 09:35 Aldactone - PO 50 mg DAILY TAMMY Administration Impression 1. CKD 2. ascites 3. liver cirrhosis 4. ileus 5. microscopic hematuria 6. fluid overload 7. a-fib 8. hyperkalemia Plan - cont lasix and aldactone - repeat labs in am - oncology input appreciated - GI follow up - monitor lytes - keep in negative fluid balance
--- NOTE | 2020-03-05 13:35 | PN ---
Progress Note, Physician History of Present Illness: PULMONARY ALERT,NO COMPLAINTS,-CP,DYSPNEA IMPROVING - Current Medication List Current Medications: Active Medications Acetaminophen (Tylenol -) 650 mg PO Q6H PRN PRN Reason: FEVER Apixaban (Eliquis -) 2.5 mg PO BID [facility] Last Admin: 03/05/20 09:35 Dose: 2.5 mg Documented by: Artificial Tears (Artificial Tears) 1 drop OU BID PRN PRN Reason: DRY EYES Docusate Sodium (Colace -) 100 mg PO BID PRN PRN Reason: CONSTIPATION Furosemide (Lasix Injection -) 40 mg IVPUSH BID@0600,1400 [facility] Last Admin: 03/05/20 06:10 Dose: 40 mg Documented by: Lactulose (Cephulac (Oral Use)) 20 gm PO TID [facility] Last Admin: 03/05/20 06:10 Dose: 20 gm Documented by: Metoprolol Succinate (Toprol Xl -) 25 mg PO DAILY [facility] Last Admin: 03/05/20 09:35 Dose: 25 mg Documented by: Oxycodone HCl (Roxicodone -) 5 mg PO Q6H PRN PRN Reason: PAIN LEVEL 7 - 10 Rifaximin (Xifaxan -) 550 mg PO BID [facility] Last Admin: 03/05/20 09:35 Dose: 550 mg Documented by: Spironolactone (Aldactone -) 50 mg PO DAILY [facility] Last Admin: 03/05/20 09:35 Dose: 50 mg Documented by: - Objective Vital Signs: Vital Signs Temperature 98.4 F 03/05/20 09:00 Pulse Rate 82 03/05/20 09:00 Respiratory Rate 19 03/05/20 09:00 Blood Pressure 108/56 L 03/05/20 09:00 O2 Sat by Pulse Oximetry (%) 97 03/05/20 09:00 Constitutional: Yes: Well Nourished, Calm Eyes: Yes: WNL HENT: Yes: WNL Neck: Yes: WNL Cardiovascular: Yes: Regular Rate and Rhythm, S1, S2 Respiratory: Yes: Diminished Gastrointestinal: Yes: Normal Bowel Sounds, Abdomen, Obese Extremities: Yes: WNL Edema: Yes Labs: CBC, BMP 03/05/20 09:27 INR, PTT INR 2.14 (0.83-1.09) H 07/15/20 09:27 Assessment/Plan Problem List - Problems (1) Afib Code(s): I48.91 - UNSPECIFIED ATRIAL FIBRILLATION (2) Anemia Code(s): D64.9 - ANEMIA, UNSPECIFIED (3) Ascites Code(s): R18.8 - OTHER ASCITES Qualifiers: Ascites type: other type Qualified Code(s): R18.8 - Other ascites (4) CKD (chronic kidney disease) Code(s): N18.9 - CHRONIC KIDNEY DISEASE, UNSPECIFIED (5) Chronic liver disease and cirrhosis Code(s): K74.60 - UNSPECIFIED CIRRHOSIS OF LIVER; K76.9 - LIVER DISEASE, UNSPECIFIED (6) Cirrhosis of liver with ascites Code(s): K74.60 - UNSPECIFIED CIRRHOSIS OF LIVER; R18.8 - OTHER ASCITES (7) Cor pulmonale Code(s): I27.81 - COR PULMONALE (CHRONIC) (8) Cryptogenic cirrhosis Code(s): K74.69 - OTHER CIRRHOSIS OF LIVER (9) Edema Code(s): R60.9 - EDEMA, UNSPECIFIED (10) Edema of abdominal wall Code(s): R60.0 - LOCALIZED EDEMA (11) HTN (hypertension) Code(s): I10 - ESSENTIAL (PRIMARY) HYPERTENSION (12) Hypotension Code(s): I95.9 - HYPOTENSION, UNSPECIFIED (13) 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 Assessment/Plan IMP: SHOOK referable to a restrictive process due to ascites due to Cryptogenic Cirrhosis PLAN: Diuresis Supplemental O2 as needed Strict I+Os No smoking Rifaxamin Lactulose Daily wts DR DOLAN
[2020-03-06] MEDS: LACTULOSE 20 GM/30 ML UDC (FOR ORAL USE ONLY) PO SCH ×3 (06:12→21:26)
[2020-03-06] MEDS: FUROSEMIDE 40 MG/4 ML INJECTABLE VIAL IVPUSH SCH ×2 (06:13→13:02)
[2020-03-06] MEDS: RIFAXIMIN 550 MG TABLET (UD) PO SCH ×2 (09:13→21:25)
[2020-03-06] MEDS: metoPROLOL SUCCINATE 25 MG TAB.SR.24H (FP) PO SCH (09:14)
[2020-03-06] MEDS: SPIRONOLACTONE 25 MG TABLET PO SCH ×2 (09:15→21:25)
--- NOTE | 2020-03-06 10:22 | PN ---
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 RLQ abd swelling improved - Current Medication List Current Medications: Active Medications Acetaminophen (Tylenol -) 650 mg PO Q6H PRN PRN Reason: FEVER Apixaban (Eliquis -) 2.5 mg PO BID [facility] Last Admin: 03/05/20 09:35 Dose: 2.5 mg Documented by: Artificial Tears (Artificial Tears) 1 drop OU BID PRN PRN Reason: DRY EYES Docusate Sodium (Colace -) 100 mg PO BID PRN PRN Reason: CONSTIPATION Furosemide (Lasix Injection -) 40 mg IVPUSH BID@0600,1400 [facility] Last Admin: 03/06/20 06:13 Dose: 40 mg Documented by: Lactulose (Cephulac (Oral Use)) 20 gm PO TID [facility] Last Admin: 03/06/20 06:12 Dose: 20 gm Documented by: Metoprolol Succinate (Toprol Xl -) 25 mg PO DAILY [facility] Last Admin: 03/06/20 09:14 Dose: Not Given Documented by: Oxycodone HCl (Roxicodone -) 5 mg PO Q6H PRN PRN Reason: PAIN LEVEL 7 - 10 Last Admin: 03/05/20 21:30 Dose: 5 mg Documented by: Rifaximin (Xifaxan -) 550 mg PO BID [facility] Last Admin: 03/06/20 09:13 Dose: 550 mg Documented by: Spironolactone (Aldactone -) 50 mg PO DAILY [facility] Last Admin: 03/06/20 09:15 Dose: 50 mg Documented by: - Objective Vital Signs: Vital Signs Temperature 98.7 F 03/06/20 08:25 Pulse Rate 79 03/06/20 08:25 Respiratory Rate 18 03/06/20 09:00 Blood Pressure 96/57 L 03/06/20 08:25 O2 Sat by Pulse Oximetry (%) 95 03/06/20 09:00 Constitutional: Yes: Well Nourished, No Distress, Calm, Obese Cardiovascular: Yes: Regular Rate and Rhythm Respiratory: Yes: Regular, CTA Bilaterally Gastrointestinal: Yes: Normal Bowel Sounds, Soft, Abdomen, Obese, Ascites (RLQ) Genitourinary: Yes: WNL Musculoskeletal: Yes: WNL Extremities: Yes: WNL Edema: Yes Edema: LLE: 2+, RLE: 2+ Peripheral Pulses WNL: Yes Neurological: Yes: Alert, Oriented Psychiatric: Yes: Alert, Oriented Labs: CBC, BMP 03/05/20 09:27 03/04/20 09:38 INR, PTT INR 2.14 (0.83-1.09) H 03/05/20 09:27 Problem List - Problems (1) Afib Assessment/Plan: -Chronic, rate controlled -Continue Eliquis Problems reviewed: Yes Code(s): I48.91 - UNSPECIFIED ATRIAL FIBRILLATION (2) Anemia Assessment/Plan: -Chronic -2/2 to chronic liver disease -Monitor trend -Transfuse only if Hg<7.0 to avoid fluid overload Problems reviewed: Yes Code(s): D64.9 - ANEMIA, UNSPECIFIED (3) CKD (chronic kidney disease) Assessment/Plan: -nephrology consult -Continue furosemide 40 mg IVP BID -Continue Spironolactone 50 mg po daily Problems reviewed: Yes Code(s): N18.9 - CHRONIC KIDNEY DISEASE, UNSPECIFIED (4) Cryptogenic cirrhosis Assessment/Plan: -GI consult -Continue lactulose + rifaxamin Problems reviewed: Yes Code(s): K74.69 - OTHER CIRRHOSIS OF LIVER (5) Edema of abdominal wall Assessment/Plan: -Continue Furosemide 40 mg IV BID--->Transition to PO in AM -Continue spironolactone Problems reviewed: Yes Code(s): R60.0 - LOCALIZED EDEMA (6) Lactic acidosis Assessment/Plan: -chronic -no signs of acute infection -afebrile -2/2 to CKD Problems reviewed: Yes Code(s): E87.2 - ACIDOSIS Assessment/Plan See problem list Spoke to son Jefferson, discussed plan of care. Pt has [facility], will be resumed upon discharge, SW notified about the plan.
--- NOTE | 2020-03-06 10:53 | PN ---
Progress Note (short form) - Note Progress Note: PULMONARY States breathing is improving. Leg swelling also improving. No chest pain, cough, fevers. Vital Signs Period Temp Pulse Resp BP Sys/Patel Pulse Ox Last 24 Hr 97.9 F-98.7 F 70-79 18-18 96-119/56-64 95-100 Gen: NAD at rest Heart: RRR Lung: decreased breath sounds at the bases Abd: soft, nontender Ext: + edema CBC, BMP 03/05/20 09:27 03/04/20 09:38 Active Medications Acetaminophen (Tylenol -) 650 mg PO Q6H PRN PRN Reason: FEVER Apixaban (Eliquis -) 2.5 mg PO BID [facility] Last Admin: 03/05/20 09:35 Dose: 2.5 mg Documented by: Artificial Tears (Artificial Tears) 1 drop OU BID PRN PRN Reason: DRY EYES Docusate Sodium (Colace -) 100 mg PO BID PRN PRN Reason: CONSTIPATION Furosemide (Lasix Injection -) 40 mg IVPUSH BID@0600,1400 [facility] Last Admin: 03/06/20 06:13 Dose: 40 mg Documented by: Lactulose (Cephulac (Oral Use)) 20 gm PO TID [facility] Last Admin: 03/06/20 06:12 Dose: 20 gm Documented by: Metoprolol Succinate (Toprol Xl -) 25 mg PO DAILY [facility] Last Admin: 03/06/20 09:14 Dose: Not Given Documented by: Oxycodone HCl (Roxicodone -) 5 mg PO Q6H PRN PRN Reason: PAIN LEVEL 7 - 10 Last Admin: 03/05/20 21:30 Dose: 5 mg Documented by: Rifaximin (Xifaxan -) 550 mg PO BID [facility] Last Admin: 03/06/20 09:13 Dose: 550 mg Documented by: Spironolactone (Aldactone -) 50 mg PO DAILY [facility] Last Admin: 03/06/20 09:15 Dose: 50 mg Documented by: A/P Volume Overload Ascites CKD Liver Cirrhosis Atrial Fibrillation LV Diastolic Dysfunction HTN - continue lasix, aldactone - monitor urine output, creatinine - daily weights - O2 as needed - rate controlled - continue anticoagulation
--- NOTE | 2020-03-06 15:32 | PN ---
Progress Note, Physician History of Present Illness: Pt seen and examined at bedside. She feels ascites is improved however she still has edema. - Current Medication List Current Medications: Active Medications Acetaminophen (Tylenol -) 650 mg PO Q6H PRN PRN Reason: FEVER Apixaban (Eliquis -) 2.5 mg PO BID [facility] Last Admin: 03/05/20 09:35 Dose: 2.5 mg Documented by: Artificial Tears (Artificial Tears) 1 drop OU BID PRN PRN Reason: DRY EYES Docusate Sodium (Colace -) 100 mg PO BID PRN PRN Reason: CONSTIPATION Furosemide (Lasix Injection -) 40 mg IVPUSH BID@0600,1400 [facility] Last Admin: 03/06/20 13:02 Dose: 40 mg Documented by: Lactulose (Cephulac (Oral Use)) 20 gm PO TID [facility] Last Admin: 03/06/20 13:03 Dose: Not Given Documented by: Metoprolol Succinate (Toprol Xl -) 12.5 mg PO DAILY [facility] Oxycodone HCl (Roxicodone -) 5 mg PO Q6H PRN PRN Reason: PAIN LEVEL 7 - 10 Last Admin: 03/05/20 21:30 Dose: 5 mg Documented by: Rifaximin (Xifaxan -) 550 mg PO BID [facility] Last Admin: 03/06/20 09:13 Dose: 550 mg Documented by: Spironolactone (Aldactone -) 50 mg PO DAILY [facility] Last Admin: 03/06/20 09:15 Dose: 50 mg Documented by: - Objective Vital Signs: Vital Signs Temperature 98.0 F 03/06/20 13:12 Pulse Rate 76 03/06/20 13:12 Respiratory Rate 18 03/06/20 13:12 Blood Pressure 95/50 L 03/06/20 13:12 O2 Sat by Pulse Oximetry (%) 95 03/06/20 09:00 Constitutional: Yes: Calm Eyes: Yes: Conjunctiva Clear HENT: Yes: Atraumatic Neck: Yes: Supple Cardiovascular: Yes: S1, S2 Respiratory: Yes: CTA Bilaterally Gastrointestinal: Yes: Soft, Ascites Genitourinary: Yes: WNL Musculoskeletal: Yes: WNL Edema: Yes Edema: LLE: 3+, RLE: 3+ Neurological: Yes: Oriented Psychiatric: Yes: Oriented Labs: CBC, BMP 03/05/20 09:27 03/04/20 09:38 INR, PTT INR 2.14 (0.83-1.09) H 03/05/20 09:27 Problem List - Problems (1) CHF (congestive heart failure) Code(s): I50.9 - HEART FAILURE, UNSPECIFIED Qualifiers: Heart failure type: unspecified Heart failure chronicity: unspecified Qualified Code(s): I50.9 - Heart failure, unspecified (2) Lactic acidosis Code(s): E87.2 - ACIDOSIS Assessment/Plan Current Medications Generic Name Dose Route Start Last Admin Trade Name Freq PRN Reason Stop Dose Admin Acetaminophen 650 mg 03/04/20 20:04 Tylenol - PO Q6H PRN FEVER Apixaban 2.5 mg 03/04/20 22:00 03/05/20 09:35 Eliquis - PO 2.5 mg BID [facility] Administration Artificial Tears 1 drop 03/04/20 20:04 Artificial Tears OU BID PRN DRY EYES Docusate Sodium 100 mg 03/04/20 20:04 Colace - PO BID PRN CONSTIPATION Furosemide 40 mg 03/05/20 06:00 03/06/20 13:02 Lasix Injection - IVPUSH 40 mg BID@0600,1400 [facility] Administration Lactulose 20 gm 03/04/20 22:00 03/06/20 13:03 Cephulac (Oral Use) PO Not Given TID [facility] Metoprolol Succinate 12.5 mg 03/06/20 11:03 Toprol Xl - PO DAILY [facility] Oxycodone HCl 5 mg 03/04/20 20:04 03/05/20 21:30 Roxicodone - PO 5 mg Q6H PRN Administration PAIN LEVEL 7 - 10 Rifaximin 550 mg 03/04/20 22:00 03/06/20 09:13 Xifaxan - PO 550 mg BID [facility] Administration Spironolactone 50 mg 03/05/20 10:00 03/06/20 09:15 Aldactone - PO 50 mg DAILY [facility] Administration Impression 1. CKD 2. ascites 3. liver cirrhosis 4. ileus 5. microscopic hematuria 6. fluid overload 7. a-fib 8. hyperkalemia Plan - cont IV lasix - cont aldacotne, uncrease dose - repeat labs in am - daily weights - will need close outpt follow up - discussed with medical team - discussed plan with pt - keep in negative fluid balance
[2020-03-06] MEDS: APIXABAN 2.5 MG TABLET PO SCH (21:25)
[2020-03-07] MEDS: LACTULOSE 20 GM/30 ML UDC (FOR ORAL USE ONLY) PO SCH ×3 (05:19→21:29)
[2020-03-07] MEDS: FUROSEMIDE 40 MG/4 ML INJECTABLE VIAL IVPUSH SCH ×2 (05:19→13:06)
[2020-03-07 09:11] LABS: BASO % 0.7 % (0-2.0); EOS % 2.6 % (0-4.5); HEMOGLOBIN 7.8 GM/dL (10.7-15.3); LYMPH % 23.5 % (8-40); MCH 30.9 pg (25.7-33.7); MCHC 32.6 g/dl (32.0-36.0); MEAN CELL VOLUME 94.9 fl (80-96); MEAN PLT VOLUME 11.8 fl (7.5-11.1); MONO % 10.5 % (3.8-10.2); NEUT % 62.7 % (42.8-82.8); PLATELET COUNT 61 K/MM3 (134-434); RBC 2.53 M/mm3 (3.60-5.2); RDW 19.6 % (11.6-15.6); WHITE BLOOD COUNT 7.7 K/mm3 (4.0-10.0)
[2020-03-07] MEDS: metoPROLOL SUCCINATE 25 MG TAB.SR.24H (FP) PO SCH (09:28)
[2020-03-07] MEDS: RIFAXIMIN 550 MG TABLET (UD) PO SCH ×2 (09:28→21:29)
[2020-03-07] MEDS: SPIRONOLACTONE 25 MG TABLET PO SCH ×2 (09:28→21:29)
[2020-03-07] MEDS: APIXABAN 2.5 MG TABLET PO SCH ×2 (09:29→21:29)
[2020-03-07 09:34] LABS: ALBUMIN 1.9 g/dl (3.4-5.0); BLOOD UREA NITROGEN 22.4 mg/dL (7-18); CALCIUM 8.6 mg/dL (8.5-10.1); CREATININE 1.8 mg/dL (0.55-1.3); POTASSIUM 3.9 mmol/L (3.5-5.1); TOT PROT 6.6 g/dl (6.4-8.2)
--- NOTE | 2020-03-07 09:53 | PN ---
Progress Note, Physician - Current Medication List Current Medications: Active Medications Acetaminophen (Tylenol -) 650 mg PO Q6H PRN PRN Reason: FEVER Apixaban (Eliquis -) 2.5 mg PO BID [facility] Last Admin: 03/07/20 09:29 Dose: 2.5 mg Documented by: Artificial Tears (Artificial Tears) 1 drop OU BID PRN PRN Reason: DRY EYES Docusate Sodium (Colace -) 100 mg PO BID PRN PRN Reason: CONSTIPATION Last Admin: 03/07/20 09:28 Dose: 100 mg Documented by: Furosemide (Lasix Injection -) 40 mg IVPUSH BID@0600,1400 [facility] Last Admin: 03/07/20 05:19 Dose: 40 mg Documented by: Lactulose (Cephulac (Oral Use)) 20 gm PO TID [facility] Last Admin: 03/07/20 05:19 Dose: 20 gm Documented by: Metoprolol Succinate (Toprol Xl -) 12.5 mg PO DAILY [facility] Last Admin: 03/07/20 09:28 Dose: 12.5 mg Documented by: Oxycodone HCl (Roxicodone -) 5 mg PO Q6H PRN PRN Reason: PAIN LEVEL 7 - 10 Last Admin: 03/05/20 21:30 Dose: 5 mg Documented by: Rifaximin (Xifaxan -) 550 mg PO BID [facility] Last Admin: 03/07/20 09:28 Dose: 550 mg Documented by: Spironolactone (Aldactone -) 50 mg PO BID [facility] Last Admin: 03/07/20 09:28 Dose: 50 mg Documented by: - Objective Vital Signs: Vital Signs Temperature 98.5 F 03/07/20 05:25 Pulse Rate 92 H 03/07/20 05:25 Respiratory Rate 18 03/07/20 05:25 Blood Pressure 109/55 L 03/07/20 05:25 O2 Sat by Pulse Oximetry (%) 94 L 03/07/20 05:25 Cardiovascular: Yes: S1, S2 Respiratory: Yes: Regular, CTA Bilaterally Gastrointestinal: Yes: Normal Bowel Sounds, Soft Labs: CBC, BMP 03/07/20 07:15 03/07/20 07:15 INR, PTT INR 2.14 (0.83-1.09) H 03/05/20 09:27 Assessment/Plan - Problems (1) Afib Assessment/Plan: -Chronic, rate controlled -Continue Eliquis Problems reviewed: Yes Code(s): I48.91 - UNSPECIFIED ATRIAL FIBRILLATION (2) Anemia Assessment/Plan: -Chronic -2/2 to chronic liver disease -occult stool negative -Monitor trend -Transfuse one unit Problems reviewed: Yes Code(s): D64.9 - ANEMIA, UNSPECIFIED (3) CKD (chronic kidney disease) Assessment/Plan: -nephrology consult -Continue furosemide 40 mg IVP BID-po -Continue Spironolactone 50 mg po daily-- Problems reviewed: Yes Code(s): N18.9 - CHRONIC KIDNEY DISEASE, UNSPECIFIED (4) Cryptogenic cirrhosis Assessment/Plan: -GI consult -Continue lactulose + rifaxamin Problems reviewed: Yes Code(s): K74.69 - OTHER CIRRHOSIS OF LIVER (5) Edema of abdominal wall Assessment/Plan: -Continue Furosemide 40 mg IV BID--->Transition to PO in AM -Continue spironolactone Problems reviewed: Yes Code(s): R60.0 - LOCALIZED EDEMA (6) Lactic acidosis Assessment/Plan: -chronic -no signs of acute infection -afebrile -2/2 to CKD Problems reviewed: Yes Code(s): E87.2 - ACIDOSIS
--- NOTE | 2020-03-07 11:14 | PN ---
Progress Note (short form) - Note Progress Note: PULMONARY OFFERS NO COMPLAINTS VSS/AFEB Gen: NAD at rest Heart: RRR Lung: decreased breath sounds at the bases Abd: soft, nontender Ext: + edema LABS/MEDS/NOTES/IMAGES REVIEWED A/P Volume Overload Ascites CKD Liver Cirrhosis Atrial Fibrillation LV Diastolic Dysfunction HTN - continue lasix, aldactone - monitor urine output, creatinine - daily weights - O2 as needed - rate controlled - continue anticoagulation Abiola GARCIA MD
--- NOTE | 2020-03-07 14:36 | PN ---
Progress Note, Physician History of Present Illness: Pt seen and examined at bedside. She is awake and alert. She feels ascites is improved. - Current Medication List Current Medications: Active Medications Acetaminophen (Tylenol -) 650 mg PO Q6H PRN PRN Reason: FEVER Apixaban (Eliquis -) 2.5 mg PO BID [facility] Last Admin: 03/07/20 09:29 Dose: 2.5 mg Documented by: Artificial Tears (Artificial Tears) 1 drop OU BID PRN PRN Reason: DRY EYES Docusate Sodium (Colace -) 100 mg PO BID PRN PRN Reason: CONSTIPATION Last Admin: 03/07/20 09:28 Dose: 100 mg Documented by: Furosemide (Lasix Injection -) 40 mg IVPUSH BID@0600,1400 [facility] Last Admin: 03/07/20 13:06 Dose: 40 mg Documented by: Lactulose (Cephulac (Oral Use)) 20 gm PO TID [facility] Last Admin: 03/07/20 12:59 Dose: Not Given Documented by: Metoprolol Succinate (Toprol Xl -) 12.5 mg PO DAILY [facility] Last Admin: 03/07/20 09:28 Dose: 12.5 mg Documented by: Oxycodone HCl (Roxicodone -) 5 mg PO Q6H PRN PRN Reason: PAIN LEVEL 7 - 10 Last Admin: 03/05/20 21:30 Dose: 5 mg Documented by: Rifaximin (Xifaxan -) 550 mg PO BID [facility] Last Admin: 03/07/20 09:28 Dose: 550 mg Documented by: Spironolactone (Aldactone -) 50 mg PO BID [facility] Last Admin: 03/07/20 09:28 Dose: 50 mg Documented by: - Objective Vital Signs: Vital Signs Temperature 98.3 F 03/07/20 09:00 Pulse Rate 85 03/07/20 09:00 Respiratory Rate 18 03/07/20 09:00 Blood Pressure 104/57 L 03/07/20 09:00 O2 Sat by Pulse Oximetry (%) 96 03/07/20 09:00 Constitutional: Yes: Calm Eyes: Yes: Conjunctiva Clear HENT: Yes: Atraumatic Neck: Yes: Supple Cardiovascular: Yes: S1, S2 Respiratory: Yes: CTA Bilaterally Gastrointestinal: Yes: Normal Bowel Sounds, Soft, Abdomen, Obese, Ascites Edema: Yes Edema: LLE: 2+, RLE: 2+ Neurological: Yes: Oriented Psychiatric: Yes: Oriented Labs: CBC, BMP 03/07/20 07:15 03/07/20 07:15 INR, PTT INR 2.14 (0.83-1.09) H 03/05/20 09:27 Problem List - Problems (1) CHF (congestive heart failure) Code(s): I50.9 - HEART FAILURE, UNSPECIFIED Qualifiers: Heart failure type: unspecified Heart failure chronicity: unspecified Qualified Code(s): I50.9 - Heart failure, unspecified (2) Lactic acidosis Code(s): E87.2 - ACIDOSIS Assessment/Plan Current Medications Generic Name Dose Route Start Last Admin Trade Name Freq PRN Reason Stop Dose Admin Acetaminophen 650 mg 03/04/20 20:04 Tylenol - PO Q6H PRN FEVER Apixaban 2.5 mg 03/04/20 22:00 03/07/20 09:29 Eliquis - PO 2.5 mg BID [facility] Administration Artificial Tears 1 drop 03/04/20 20:04 Artificial Tears OU BID PRN DRY EYES Docusate Sodium 100 mg 03/04/20 20:04 03/07/20 09:28 Colace - PO 100 mg BID PRN Administration CONSTIPATION Furosemide 40 mg 03/05/20 06:00 03/07/20 13:06 Lasix Injection - IVPUSH 40 mg BID@0600,1400 [facility] Administration Lactulose 20 gm 03/04/20 22:00 03/07/20 12:59 Cephulac (Oral Use) PO Not Given TID [facility] Metoprolol Succinate 12.5 mg 03/06/20 11:03 03/07/20 09:28 Toprol Xl - PO 12.5 mg DAILY [facility] Administration Oxycodone HCl 5 mg 03/04/20 20:04 03/05/20 21:30 Roxicodone - PO 5 mg Q6H PRN Administration PAIN LEVEL 7 - 10 Rifaximin 550 mg 03/04/20 22:00 03/07/20 09:28 Xifaxan - PO 550 mg BID [facility] Administration Spironolactone 50 mg 03/06/20 22:00 03/07/20 09:28 Aldactone - PO 50 mg BID [facility] Administration Impression 1. CKD 2. ascites 3. liver cirrhosis 4. ileus 5. microscopic hematuria 6. fluid overload 7. a-fib 8. hyperkalemia Plan - cont lasix and aldactone - monitor volume status - repeat labs in am - monitor supervisor pleating - daily weights - will need close outpt follow up - discussed plan with pt - keep in negative fluid balance
--- NOTE | 2020-03-08 02:39 | HOSP ---
Subjective - Review of Symptoms Events since last encounter: Hospitalist Encounter Notified by the RN that the patient is having vaginal bleeding, was asked to assess. Arrived to bedside, patient is awake, alert and oriented she reports feeling wetness between her legs, denies abdominal or vaginal pain Patient examined see EMR Genitourinary: Yes: Other (vaginal bleeding) Physical Examination Vital Signs: Vital Signs Temperature 98.9 F 03/08/20 02:00 Pulse Rate 82 03/08/20 02:00 Respiratory Rate 18 03/08/20 02:00 Blood Pressure 83/50 L 03/08/20 02:00 O2 Sat by Pulse Oximetry (%) 96 03/08/20 02:00 Constitutional: Yes: Well Nourished, No Distress, Calm, Obese Eyes: Yes: WNL, Conjunctiva Clear, EOM Intact, PERRL HENT: Yes: WNL, Atraumatic, Normocephalic, Other Neck: Yes: WNL, Supple, Trachea Midline Cardiovascular: Yes: Regular Rate and Rhythm, Murmur, S1, S2 Respiratory: Yes: Diminished Gastrointestinal: Yes: Normal Bowel Sounds, Soft, Abdomen, Obese, Ascites ...Rectal Exam: Yes: Guaiac Trace Renal/: Yes: Vaginal Bleeding (scant bright red blood without clots) Breast(s): Yes: WNL Musculoskeletal: Yes: WNL Extremities: Yes: WNL Edema: Yes Peripheral Pulses WNL: Yes Neurological: Yes: WNL, Alert, Oriented, Cran Nerves II-XII Intact Labs: CBC, BMP 03/07/20 07:15 03/07/20 07:15 Hospitalist Encounter Assessment: This is a 74 y/o female from [facility] with a PMHx of Cirrhosis, HFpEF, Afib (Eliquis), CKD, Venous Insufficiency, recent admission for AMS, Hepatic Encephalopathy, R-arm PICC Infection (02/14-02/20). Admitted for Acute CHF Recommendations/Interventions: POST OFFICE MANAGER Consult
[2020-03-08] MEDS: FUROSEMIDE 40 MG/4 ML INJECTABLE VIAL IVPUSH SCH ×2 (05:43→13:08)
[2020-03-08] MEDS: LACTULOSE 20 GM/30 ML UDC (FOR ORAL USE ONLY) PO SCH ×3 (05:43→21:50)
[2020-03-08 09:19] LABS: HEMATOCRIT 28.3 % (32.4-45.2); HEMOGLOBIN 9.2 GM/dL (10.7-15.3); MCH 30.2 pg (25.7-33.7); MCHC 32.4 g/dl (32.0-36.0); MEAN CELL VOLUME 93.2 fl (80-96); MEAN PLT VOLUME 10.3 fl (7.5-11.1); PLATELET COUNT 64 K/MM3 (134-434); RBC 3.03 M/mm3 (3.60-5.2); RDW 19.1 % (11.6-15.6); WHITE BLOOD COUNT 5.7 K/mm3 (4.0-10.0)
[2020-03-08] MEDS: APIXABAN 2.5 MG TABLET PO SCH ×2 (09:33→21:49)
[2020-03-08] MEDS: metoPROLOL SUCCINATE 25 MG TAB.SR.24H (FP) PO SCH (09:33)
[2020-03-08] MEDS: RIFAXIMIN 550 MG TABLET (UD) PO SCH ×2 (09:33→21:49)
[2020-03-08] MEDS: SPIRONOLACTONE 25 MG TABLET PO SCH ×2 (09:34→21:49)
--- NOTE | 2020-03-08 09:50 | PN ---
Progress Note, Physician - Current Medication List Current Medications: Active Medications Acetaminophen (Tylenol -) 650 mg PO Q6H PRN PRN Reason: FEVER Apixaban (Eliquis -) 2.5 mg PO BID [facility] Last Admin: 03/08/20 09:33 Dose: 2.5 mg Documented by: Artificial Tears (Artificial Tears) 1 drop OU BID PRN PRN Reason: DRY EYES Docusate Sodium (Colace -) 100 mg PO BID PRN PRN Reason: CONSTIPATION Last Admin: 03/07/20 09:28 Dose: 100 mg Documented by: Furosemide (Lasix Injection -) 40 mg IVPUSH BID@0600,1400 [facility] Last Admin: 03/08/20 05:43 Dose: 40 mg Documented by: Lactulose (Cephulac (Oral Use)) 20 gm PO TID [facility] Last Admin: 03/08/20 05:43 Dose: 20 gm Documented by: Metoprolol Succinate (Toprol Xl -) 12.5 mg PO DAILY [facility] Last Admin: 03/08/20 09:33 Dose: 12.5 mg Documented by: Oxycodone HCl (Roxicodone -) 5 mg PO Q6H PRN PRN Reason: PAIN LEVEL 7 - 10 Last Admin: 03/05/20 21:30 Dose: 5 mg Documented by: Rifaximin (Xifaxan -) 550 mg PO BID [facility] Last Admin: 03/08/20 09:33 Dose: 550 mg Documented by: Spironolactone (Aldactone -) 50 mg PO BID [facility] Last Admin: 03/08/20 09:34 Dose: 50 mg Documented by: - Objective Vital Signs: Vital Signs Temperature 98.7 F 03/08/20 05:25 Pulse Rate 82 03/08/20 05:25 Respiratory Rate 18 03/08/20 05:25 Blood Pressure 99/57 L 03/08/20 05:25 O2 Sat by Pulse Oximetry (%) 95 03/08/20 05:25 Cardiovascular: Yes: Regular Rate and Rhythm Respiratory: Yes: Regular, CTA Bilaterally Gastrointestinal: Yes: Normal Bowel Sounds, Soft. No: Tenderness Labs: CBC, BMP 03/08/20 09:00 03/07/20 07:15 INR, PTT INR 2.14 (0.83-1.09) H 03/05/20 09:27 Assessment/Plan - Problems (1) Afib Assessment/Plan: -Chronic, rate controlled -Continue Eliquis Problems reviewed: Yes Code(s): I48.91 - UNSPECIFIED ATRIAL FIBRILLATION (2) Anemia Assessment/Plan: -Chronic -2/2 to chronic liver disease -occult stool negative -Monitor trend -Transfuse one unit Problems reviewed: Yes Code(s): D64.9 - ANEMIA, UNSPECIFIED (3) CKD (chronic kidney disease) Assessment/Plan: -nephrology consult -Continue furosemide 40 mg IVP BID-po -Continue Spironolactone 50 mg po daily-- Problems reviewed: Yes Code(s): N18.9 - CHRONIC KIDNEY DISEASE, UNSPECIFIED (4) Cryptogenic cirrhosis Assessment/Plan: -GI consult -Continue lactulose + rifaxamin Problems reviewed: Yes Code(s): K74.69 - OTHER CIRRHOSIS OF LIVER (5) Edema of abdominal wall-Ascitis Assessment/Plan: -Continue Furosemide 40 mg IV BID--->Transition to PO in AM -Continue spironolactone Problems reviewed: Yes Code(s): R60.0 - LOCALIZED EDEMA (6) Lactic acidosis Assessment/Plan: -chronic -no signs of acute infection -afebrile -2/2 to CKD Problems reviewed: Yes Code(s): E87.2 - ACIDOSIS (7) Vaginal Spotting Assessment/Plan: -Dimensional Inspector await heel blacker then dc home all discussed with pt and agrees with outpatient follow up
--- NOTE | 2020-03-08 14:00 | PN ---
Progress Note (short form) - Note Progress Note: Resting in NAD. Events overnight noted. Intake & Output 03/05/20 03/06/20 03/07/20 03/08/20 23:59 23:59 23:59 23:59 Intake Total 946 298 0511 430 Output Total 1460 Balance -962 686 2608 430 Weight 220 lb 218 lb 5 oz 190 lb 8 oz 215 lb 8 oz Last Vital Signs Temp Pulse Resp BP Pulse Ox 98.2 F 78 19 113/60 95 03/08/20 10:00 03/08/20 10:00 03/08/20 10:00 03/08/20 10:00 03/08/20 10:00 Active Medications Acetaminophen (Tylenol -) 650 mg PO Q6H PRN PRN Reason: FEVER Apixaban (Eliquis -) 2.5 mg PO BID [facility] Last Admin: 03/08/20 09:33 Dose: 2.5 mg Documented by: Artificial Tears (Artificial Tears) 1 drop OU BID PRN PRN Reason: DRY EYES Docusate Sodium (Colace -) 100 mg PO BID PRN PRN Reason: CONSTIPATION Last Admin: 03/07/20 09:28 Dose: 100 mg Documented by: Furosemide (Lasix Injection -) 40 mg IVPUSH BID@0600,1400 [facility] Last Admin: 03/08/20 13:08 Dose: 40 mg Documented by: Lactulose (Cephulac (Oral Use)) 20 gm PO TID [facility] Last Admin: 03/08/20 13:08 Dose: 20 gm Documented by: Metoprolol Succinate (Toprol Xl -) 12.5 mg PO DAILY [facility] Last Admin: 03/08/20 09:33 Dose: 12.5 mg Documented by: Oxycodone HCl (Roxicodone -) 5 mg PO Q6H PRN PRN Reason: PAIN LEVEL 7 - 10 Last Admin: 03/05/20 21:30 Dose: 5 mg Documented by: Rifaximin (Xifaxan -) 550 mg PO BID [facility] Last Admin: 03/08/20 09:33 Dose: 550 mg Documented by: Spironolactone (Aldactone -) 50 mg PO BID [facility] Last Admin: 03/08/20 09:34 Dose: 50 mg Documented by: Gen: NAD at rest Heart: RRR Lung: decreased breath sounds at the bases Abd: soft, nontender Ext: + edema Laboratory Results - last 24 hr 03/07/20 03/08/20 03/08/20 15:30 09:00 09:00 WBC 5.7 RBC 3.03 L Hgb 9.2 L Hct 28.3 L D MCV 93.2 MCH 30.2 MCHC 32.4 RDW 19.1 H Plt Count 64 L MPV 10.3 D Lactic Acid 2.4 H* Stool Occult Blood Trace A/P Volume Overload Ascites CKD Liver Cirrhosis Atrial Fibrillation LV Diastolic Dysfunction HTN - Lasix, aldactone - Monitor urine output, creatinine - Daily weights - O2 as needed - rate controlled - continue anticoagulation Dr Bauman Problem List - Problems (1) Afib Code(s): I48.91 - UNSPECIFIED ATRIAL FIBRILLATION (2) Anemia Code(s): D64.9 - ANEMIA, UNSPECIFIED (3) Ascites Code(s): R18.8 - OTHER ASCITES Qualifiers: Ascites type: other type Qualified Code(s): R18.8 - Other ascites (4) CKD (chronic kidney disease) Code(s): N18.9 - CHRONIC KIDNEY DISEASE, UNSPECIFIED (5) Chronic liver disease and cirrhosis Code(s): K74.60 - UNSPECIFIED CIRRHOSIS OF LIVER; K76.9 - LIVER DISEASE, UNSPECIFIED (6) Cirrhosis of liver with ascites Code(s): K74.60 - UNSPECIFIED CIRRHOSIS OF LIVER; R18.8 - OTHER ASCITES (7) Cor pulmonale Code(s): I27.81 - COR PULMONALE (CHRONIC) (8) Cryptogenic cirrhosis Code(s): K74.69 - OTHER CIRRHOSIS OF LIVER (9) Edema Code(s): R60.9 - EDEMA, UNSPECIFIED (10) Edema of abdominal wall Code(s): R60.0 - LOCALIZED EDEMA (11) HTN (hypertension) Code(s): I10 - ESSENTIAL (PRIMARY) HYPERTENSION (12) Hypotension Code(s): I95.9 - HYPOTENSION, UNSPECIFIED (13) 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
--- NOTE | 2020-03-08 15:08 | PN ---
Progress Note (short form) - Note Progress Note: 1. CKD 2. ascites 3. liver cirrhosis 4. ileus 5. microscopic hematuria 6. fluid overload 7. a-fib 8. hyperkalemia Active Medications Acetaminophen (Tylenol -) 650 mg PO Q6H PRN PRN Reason: FEVER Apixaban (Eliquis -) 2.5 mg PO BID [facility] Last Admin: 03/08/20 09:33 Dose: 2.5 mg Documented by: Artificial Tears (Artificial Tears) 1 drop OU BID PRN PRN Reason: DRY EYES Docusate Sodium (Colace -) 100 mg PO BID PRN PRN Reason: CONSTIPATION Last Admin: 03/07/20 09:28 Dose: 100 mg Documented by: Furosemide (Lasix Injection -) 40 mg IVPUSH BID@0600,1400 [facility] Last Admin: 03/08/20 13:08 Dose: 40 mg Documented by: Lactulose (Cephulac (Oral Use)) 20 gm PO TID [facility] Last Admin: 03/08/20 13:08 Dose: 20 gm Documented by: Metoprolol Succinate (Toprol Xl -) 12.5 mg PO DAILY [facility] Last Admin: 03/08/20 09:33 Dose: 12.5 mg Documented by: Oxycodone HCl (Roxicodone -) 5 mg PO Q6H PRN PRN Reason: PAIN LEVEL 7 - 10 Last Admin: 03/05/20 21:30 Dose: 5 mg Documented by: Rifaximin (Xifaxan -) 550 mg PO BID [facility] Last Admin: 03/08/20 09:33 Dose: 550 mg Documented by: Spironolactone (Aldactone -) 50 mg PO BID [facility] Last Admin: 03/08/20 09:34 Dose: 50 mg Documented by: Last Vital Signs Temp Pulse Resp BP Pulse Ox 98.2 F 78 19 113/60 95 03/08/20 10:00 03/08/20 10:00 03/08/20 10:00 03/08/20 10:00 03/08/20 10:00 CBC, BMP 03/08/20 09:00 03/07/20 07:15 IMP- Ascites CKD on aldactone and lasix monitor labs
[2020-03-08 17:07] LABS: FREE KAPPA,SERUM 121.9 mg/L (3.3-19.4)
--- NOTE | 2020-03-08 19:33 | CONS ---
DATE OF CONSULTATION: DATE OF DICTATION: 03/08/2020 REASON FOR CONSULTATION: Postmenopausal bleeding. This patient is a 74-year-old female from assisted with past medical history of cirrhosis, atrial fibrillation, venous insufficiency, and ascites. She was admitted with abdominal pain and flank and swelling of the abdomen. She has been treated previously for hepatic encephalopathy and had a right arm PICC line which was infected. Now admitted for swelling of lower extremities and abdominal pain. I was asked to see the patient because the patient had seen some vaginal bleeding after wiping. Presently, she is on Eliquis for the atrial fibrillation. PHYSICAL EXAMINATION: General: Patient is alert, obese. Abdomen: Soft with distention and large ascites. Pelvic: Exam shows external genitalia to be normal. Vagina: Small amount of dark, old blood in the vagina. Cervix was closed. No gross lesion. Uterus was not able to palpate because of the ascites. Adnexa: No masses were palpable and nontender. IMPRESSION: Postmenopausal bleeding, most likely secondary to Eliquis and cirrhosis of the liver and compromised coagulopathy. Rule out endometrial hyperplasia or cancer. Advise transvaginal sonogram for evaluation of the endometrium and re-evaluation. Patient currently not actively bleeding and her vital signs are stable. We will follow. Fatmata [id number]
[2020-03-09] MEDS: LACTULOSE 20 GM/30 ML UDC (FOR ORAL USE ONLY) PO SCH ×3 (05:18→22:21)
[2020-03-09] MEDS: APIXABAN 2.5 MG TABLET PO SCH ×2 (10:01→22:22)
[2020-03-09] MEDS: SPIRONOLACTONE 25 MG TABLET PO SCH ×2 (10:01→22:21)
[2020-03-09] MEDS: RIFAXIMIN 550 MG TABLET (UD) PO SCH ×2 (10:02→22:21)
[2020-03-09] MEDS: metoPROLOL SUCCINATE 25 MG TAB.SR.24H (FP) PO SCH (10:02)
--- NOTE | 2020-03-09 11:32 | PN ---
Progress Note, Physician - Current Medication List Current Medications: Active Medications Acetaminophen (Tylenol -) 650 mg PO Q6H PRN PRN Reason: FEVER Apixaban (Eliquis -) 2.5 mg PO BID [facility] Last Admin: 03/09/20 10:01 Dose: 2.5 mg Documented by: Artificial Tears (Artificial Tears) 1 drop OU BID PRN PRN Reason: DRY EYES Docusate Sodium (Colace -) 100 mg PO BID PRN PRN Reason: CONSTIPATION Last Admin: 03/07/20 09:28 Dose: 100 mg Documented by: Furosemide (Lasix Injection -) 40 mg IVPUSH BID@0600,1400 [facility] Last Admin: 03/08/20 13:08 Dose: 40 mg Documented by: Lactulose (Cephulac (Oral Use)) 20 gm PO TID [facility] Last Admin: 03/09/20 05:18 Dose: 20 gm Documented by: Metoprolol Succinate (Toprol Xl -) 12.5 mg PO DAILY [facility] Last Admin: 03/09/20 10:02 Dose: 12.5 mg Documented by: Rifaximin (Xifaxan -) 550 mg PO BID [facility] Last Admin: 03/09/20 10:02 Dose: 550 mg Documented by: Spironolactone (Aldactone -) 50 mg PO BID [facility] Last Admin: 03/09/20 10:01 Dose: 50 mg Documented by: - Objective Vital Signs: Vital Signs Temperature 98.8 F 03/09/20 07:00 Pulse Rate 79 03/09/20 07:00 Respiratory Rate 20 03/09/20 07:00 Blood Pressure 96/48 L 03/09/20 07:00 O2 Sat by Pulse Oximetry (%) 94 L 03/09/20 07:00 Cardiovascular: Yes: Regular Rate and Rhythm Respiratory: Yes: Regular, CTA Bilaterally Gastrointestinal: Yes: Normal Bowel Sounds, Soft, Ascites Labs: CBC, BMP 03/08/20 09:00 03/07/20 07:15 INR, PTT INR 2.14 (0.83-1.09) H 03/05/20 09:27 Assessment/Plan - Problems (1) Afib Assessment/Plan: -Chronic, rate controlled -Continue Eliquis Problems reviewed: Yes Code(s): I48.91 - UNSPECIFIED ATRIAL FIBRILLATION (2) Anemia Assessment/Plan: -Chronic -2/2 to chronic liver disease -occult stool negative -Monitor trend -Transfuse one unit Problems reviewed: Yes Code(s): D64.9 - ANEMIA, UNSPECIFIED (3) CKD (chronic kidney disease) Assessment/Plan: -nephrology consult -Continue furosemide 40 mg IVP BID-po -Continue Spironolactone 50 mg po daily-- Problems reviewed: Yes Code(s): N18.9 - CHRONIC KIDNEY DISEASE, UNSPECIFIED (4) Cryptogenic cirrhosis Assessment/Plan: -GI consult -Continue lactulose + rifaxamin Problems reviewed: Yes Code(s): K74.69 - OTHER CIRRHOSIS OF LIVER (5) Edema of abdominal wall-Ascitis Assessment/Plan: -Continue Furosemide 40 mg IV BID--->Transition to PO in AM -Continue spironolactone Problems reviewed: Yes Code(s): R60.0 - LOCALIZED EDEMA (6) Lactic acidosis Assessment/Plan: -chronic -no signs of acute infection -afebrile -2/2 to CKD Problems reviewed: Yes Code(s): E87.2 - ACIDOSIS (7) Vaginal Spotting Assessment/Plan: -Fitness Center Attendant await soundscriber mechanic then dc home all discussed with pt and agrees with outpatient follow up
--- NOTE | 2020-03-09 13:49 | PN ---
Progress Note (short form) - Note Progress Note: OOB to chair. Breathing feels overall better. Events overnight noted. Intake & Output 03/06/20 03/07/20 03/08/20 03/09/20 23:59 23:59 23:59 23:59 Intake Total 100 1160 860 120 Output Total 400 Balance 100 1160 460 120 Weight 218 lb 5 oz 190 lb 8 oz 215 lb 8 oz 209 lb Last Vital Signs Temp Pulse Resp BP Pulse Ox 98.8 F 79 20 96/48 L 94 L 03/09/20 07:00 03/09/20 07:00 03/09/20 07:00 03/09/20 07:00 03/09/20 07:00 Active Medications Acetaminophen (Tylenol -) 650 mg PO Q6H PRN PRN Reason: FEVER Apixaban (Eliquis -) 2.5 mg PO BID [facility] Last Admin: 03/09/20 10:01 Dose: 2.5 mg Documented by: Artificial Tears (Artificial Tears) 1 drop OU BID PRN PRN Reason: DRY EYES Docusate Sodium (Colace -) 100 mg PO BID PRN PRN Reason: CONSTIPATION Last Admin: 03/07/20 09:28 Dose: 100 mg Documented by: Furosemide (Lasix Injection -) 40 mg IVPUSH BID@0600,1400 [facility] Last Admin: 03/08/20 13:08 Dose: 40 mg Documented by: Lactulose (Cephulac (Oral Use)) 20 gm PO TID [facility] Last Admin: 03/09/20 05:18 Dose: 20 gm Documented by: Metoprolol Succinate (Toprol Xl -) 12.5 mg PO DAILY [facility] Last Admin: 03/09/20 10:02 Dose: 12.5 mg Documented by: Rifaximin (Xifaxan -) 550 mg PO BID [facility] Last Admin: 03/09/20 10:02 Dose: 550 mg Documented by: Spironolactone (Aldactone -) 50 mg PO BID [facility] Last Admin: 03/09/20 10:01 Dose: 50 mg Documented by: Gen: NAD at rest Heart: RRR Lung: decreased breath sounds at the bases Abd: soft, nontender Ext: + edema Laboratory Results - last 24 hr 03/07/20 03/07/20 05:45 05:45 Serum ALISON Interpret IEP IgG 2901 H IEP IgA 910 H IEP IgM 79 Free [place] LC, Quant 121.9 H Free Lambda LC, Quant 86.2 H Free [place]/Lambda Ratio 1.41 A/P Volume Overload Ascites CKD Liver Cirrhosis Atrial Fibrillation LV Diastolic Dysfunction HTN - Lasix, aldactone - Monitor urine output, creatinine - Daily weights - O2 as needed - rate controlled - continue anticoagulation Dr Bamuan Problem List - Problems (1) Afib Code(s): I48.91 - UNSPECIFIED ATRIAL FIBRILLATION (2) Anemia Code(s): D64.9 - ANEMIA, UNSPECIFIED (3) Ascites Code(s): R18.8 - OTHER ASCITES Qualifiers: Qualified Code(s): R18.8 - Other ascites (4) CKD (chronic kidney disease) Code(s): N18.9 - CHRONIC KIDNEY DISEASE, UNSPECIFIED (5) Chronic liver disease and cirrhosis Code(s): K74.60 - UNSPECIFIED CIRRHOSIS OF LIVER; K76.9 - LIVER DISEASE, UNSPECIFIED (6) Cirrhosis of liver with ascites Code(s): K74.60 - UNSPECIFIED CIRRHOSIS OF LIVER; R18.8 - OTHER ASCITES (7) Cor pulmonale Code(s): I27.81 - COR PULMONALE (CHRONIC) (8) Cryptogenic cirrhosis Code(s): K74.69 - OTHER CIRRHOSIS OF LIVER (9) Edema Code(s): R60.9 - EDEMA, UNSPECIFIED (10) Edema of abdominal wall Code(s): R60.0 - LOCALIZED EDEMA (11) HTN (hypertension) Code(s): I10 - ESSENTIAL (PRIMARY) HYPERTENSION (12) Hypotension Code(s): I95.9 - HYPOTENSION, UNSPECIFIED (13) 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
--- NOTE | 2020-03-09 13:52 | PN ---
Progress Note (short form) - Note Progress Note: 1. CKD 2. ascites 3. liver cirrhosis 4. ileus 5. microscopic hematuria 6. fluid overload 7. a-fib 8. hyperkalemia Active Medications Acetaminophen (Tylenol -) 650 mg PO Q6H PRN PRN Reason: FEVER Apixaban (Eliquis -) 2.5 mg PO BID [facility] Last Admin: 03/09/20 10:01 Dose: 2.5 mg Documented by: Artificial Tears (Artificial Tears) 1 drop OU BID PRN PRN Reason: DRY EYES Docusate Sodium (Colace -) 100 mg PO BID PRN PRN Reason: CONSTIPATION Last Admin: 03/07/20 09:28 Dose: 100 mg Documented by: Furosemide (Lasix Injection -) 40 mg IVPUSH BID@0600,1400 [facility] Last Admin: 03/08/20 13:08 Dose: 40 mg Documented by: Lactulose (Cephulac (Oral Use)) 20 gm PO TID [facility] Last Admin: 03/09/20 05:18 Dose: 20 gm Documented by: Metoprolol Succinate (Toprol Xl -) 12.5 mg PO DAILY [facility] Last Admin: 03/09/20 10:02 Dose: 12.5 mg Documented by: Rifaximin (Xifaxan -) 550 mg PO BID [facility] Last Admin: 03/09/20 10:02 Dose: 550 mg Documented by: Spironolactone (Aldactone -) 50 mg PO BID [facility] Last Admin: 03/09/20 10:01 Dose: 50 mg Documented by: Last Vital Signs Temp Pulse Resp BP Pulse Ox 98.8 F 79 20 96/48 L 94 L 03/09/20 07:00 03/09/20 07:00 03/09/20 07:00 03/09/20 07:00 03/09/20 07:00 Lungs clear Heart reg Abd soft nontender Ext min edema CBC, BMP 03/08/20 09:00 03/07/20 07:15 IMP- Ascites CKD on aldactone and lasix monitor labs
[2020-03-09] MEDS: FUROSEMIDE 40 MG/4 ML INJECTABLE VIAL IVPUSH SCH ×2 (14:35→20:37)
--- NOTE | 2020-03-09 15:44 | PN ---
Progress Note (short form) - Note Progress Note: ID CONSULT DICTATED PERSISTANT LACTIC ACIDOSIS NO CLEAR INFECTIOUS FOCUS WILL OBTAIN BC OFF ANTIBIOTICS
[2020-03-09] MEDS: oxyCODONE HCL 5 MG TABLET PO PRN (22:22)
[2020-03-10] MEDS: FUROSEMIDE 40 MG/4 ML INJECTABLE VIAL IVPUSH SCH ×2 (05:52→16:14)
[2020-03-10] MEDS: LACTULOSE 20 GM/30 ML UDC (FOR ORAL USE ONLY) PO SCH ×3 (05:52→21:50)
--- NOTE | 2020-03-10 09:08 | RAPID ---
Physical Examination Vital Signs: Vital Signs Temperature 97.9 F 03/10/20 05:59 Pulse Rate 64 03/10/20 05:59 Respiratory Rate 18 03/10/20 05:59 Blood Pressure 107/59 L 03/10/20 05:59 O2 Sat by Pulse Oximetry (%) 98 03/10/20 05:59 Constitutional: Yes: Moderate Distress Eyes: Yes: Conjunctiva Clear HENT: Yes: Atraumatic Neck: Yes: Trachea Midline Labs: CBC, BMP 03/08/20 09:00 03/07/20 07:15 Rapid Response - Rapid Response Assessment: Rapid response was called in. Patient was reported to have rigors and unresponsive w blank stare. Patient rectal temperature was recorded at 99. Patient returned to baseline after few minutes without any intervention needed.
--- NOTE | 2020-03-10 09:57 | CONS ---
DATE OF CONSULTATION: DATE OF DICTATION: 03/09/2020 HISTORY OF PRESENT ILLNESS: The patient is a 74-year-old female who is evaluated for positive lactic acid level. She was admitted to the hospital on March 02, 2020. Since admission she has had an elevated lactic acid level ranging from 2.9 to 2.4. She was admitted with worsening abdominal and lower extremity swelling. This was felt to be multifactorial secondary to volume overload, secondary to chronic kidney disease, cirrhosis with ascites, and left ventricular dysfunction. She has remained afebrile with a normal white blood cell count. Urine culture was negative on admission. At the present time she has no focal complaints. She denies any fevers, chills, night sweats. No complaints of chest pain, shortness of breath, cough, sputum production, vomiting, diarrhea, or dysuria. She was recently hospitalized in late January/early February with a Strep Mitis bacteremia of unclear source. She completed a 28-day course of IV antibiotic therapy on or about February 21, 2020. PAST MEDICAL HISTORY: Also includes cirrhosis, atrial fibrillation, and chronic kidney disease. ALLERGIES: No known allergies. MEDICATIONS: Xifaxan, Eliquis, metoprolol, spironolactone, Tylenol, Lasix, lactulose, Colace. SOCIAL HISTORY: She resides in a [facility] facility. No active tobacco or alcohol use. REVIEW OF SYSTEMS: Neurologic: No loss of consciousness, seizure activity, focal weakness. Cardiac: Negative chest pain or palpitations. Respiratory: Negative cough or sputum production. Gastrointestinal: As per HPI. Genitourinary: As per HPI. LABORATORY DATA: White count 5.7, hematocrit 28.3, platelets 64. Urinalysis 4 white cells. Chest x-ray negative for acute infiltrate. Lactic acid 2.4. PHYSICAL EXAMINATION:General: She is awake and alert in bed in no acute distress. She is not acutely toxic appearing in no acute distress. She is morbidly obese. VITAL SIGNS: Temperature 98.6, blood pressure 98/51, pulse 85 regular, respirations 18 per minute. HEENT: Sclera anicteric. Heart: Heart sounds S1 and S2. Lungs: Grossly clear. Abdomen: Obese, soft, and nontender. Extremities: Positive for edema. Stage 2 left buttock decubitus. IMPRESSION: Persistent lactic acidosis unclear etiology most likely secondary to chronic kidney disease. No clear infectious focus. We will obtain blood cultures off antibiotic therapy. No objection to discharge from ID standpoint. Thank you for the kind referral. JIM LOPEZ M.D. [id number]
--- NOTE | 2020-03-10 11:08 | PN ---
Progress Note, Physician Chief Complaint: Ascites Cryptogenic cirrhosis CKD History of Present Illness: NAD, feels cold Rapid response called in this AM around 9 AM for shivering, low grade temp. CXR done- negative -Labs/BC/UC pending C/O vaginal bleeding. Transvaginal US pending - Current Medication List Current Medications: Active Medications Acetaminophen (Tylenol -) 650 mg PO Q6H PRN PRN Reason: FEVER Apixaban (Eliquis -) 2.5 mg PO BID [facility] Last Admin: 03/09/20 22:22 Dose: 2.5 mg Documented by: Artificial Tears (Artificial Tears) 1 drop OU BID PRN PRN Reason: DRY EYES Docusate Sodium (Colace -) 100 mg PO BID PRN PRN Reason: CONSTIPATION Last Admin: 03/07/20 09:28 Dose: 100 mg Documented by: Furosemide (Lasix Injection -) 40 mg IVPUSH BID@0600,1400 [facility] Last Admin: 03/10/20 05:52 Dose: 40 mg Documented by: Lactulose (Cephulac (Oral Use)) 20 gm PO TID [facility] Last Admin: 03/10/20 05:52 Dose: 20 gm Documented by: Metoprolol Succinate (Toprol Xl -) 12.5 mg PO DAILY [facility] Last Admin: 03/09/20 10:02 Dose: 12.5 mg Documented by: Oxycodone HCl (Roxicodone -) 5 mg PO Q6H PRN PRN Reason: PAIN LEVEL 6-10 Last Admin: 03/09/20 22:22 Dose: 5 mg Documented by: Rifaximin (Xifaxan -) 550 mg PO BID [facility] Last Admin: 03/09/20 22:21 Dose: 550 mg Documented by: Spironolactone (Aldactone -) 50 mg PO BID [facility] Last Admin: 03/09/20 22:21 Dose: 50 mg Documented by: - Objective Vital Signs: Vital Signs Temperature 97.9 F 03/10/20 05:59 Pulse Rate 64 03/10/20 05:59 Respiratory Rate 18 03/10/20 05:59 Blood Pressure 107/59 L 03/10/20 05:59 O2 Sat by Pulse Oximetry (%) 98 03/10/20 05:59 Constitutional: Yes: Well Nourished, No Distress, Calm, Obese Cardiovascular: Yes: Regular Rate and Rhythm Respiratory: Yes: Regular, CTA Bilaterally Gastrointestinal: Yes: Normal Bowel Sounds, Soft, Abdomen, Obese, Ascites (RLQ) Genitourinary: Yes: Incontinence Musculoskeletal: Yes: Muscle Weakness Edema: Yes Edema: LLE: 3+, RLE: 3+ Peripheral Pulses WNL: Yes Neurological: Yes: Alert, Oriented Psychiatric: Yes: Alert, Oriented Labs: CBC, BMP 03/08/20 09:00 03/07/20 07:15 INR, PTT INR 2.14 (0.83-1.09) H 03/05/20 09:27 Problem List - Problems (1) Afib Assessment/Plan: -Chronic, rate controlled -Continue Eliquis Problems reviewed: Yes Code(s): I48.91 - UNSPECIFIED ATRIAL FIBRILLATION (2) Anemia Assessment/Plan: -Chronic -2/2 to chronic liver disease -Monitor trend -Transfuse only if Hg<7.0 to avoid fluid overload Problems reviewed: Yes Code(s): D64.9 - ANEMIA, UNSPECIFIED (3) CKD (chronic kidney disease) Assessment/Plan: -nephrology consult -Continue furosemide 40 mg IVP BID -Continue Spironolactone 50 mg po daily Problems reviewed: Yes Code(s): N18.9 - CHRONIC KIDNEY DISEASE, UNSPECIFIED (4) Cryptogenic cirrhosis Assessment/Plan: -GI consult -Continue lactulose + rifaxamin Problems reviewed: Yes Code(s): K74.69 - OTHER CIRRHOSIS OF LIVER (5) Edema of abdominal wall Assessment/Plan: -Continue Furosemide 40 mg IV BID--->Transition to PO in AM -Continue spironolactone Problems reviewed: Yes Code(s): R60.0 - LOCALIZED EDEMA (6) Lactic acidosis Assessment/Plan: -chronic -Repeat CXR-negative -Labs/BC/UC pending Problems reviewed: Yes Code(s): E87.2 - ACIDOSIS Assessment/Plan See problem list
[2020-03-10] MEDS: metoPROLOL SUCCINATE 25 MG TAB.SR.24H (FP) PO SCH (12:11)
[2020-03-10] MEDS: oxyCODONE HCL 5 MG TABLET PO PRN (12:11)
[2020-03-10] MEDS: SPIRONOLACTONE 25 MG TABLET PO SCH ×2 (12:12→21:51)
[2020-03-10] MEDS: RIFAXIMIN 550 MG TABLET (UD) PO SCH ×2 (12:12→21:51)
[2020-03-10] MEDS: APIXABAN 2.5 MG TABLET PO SCH (12:12)
--- NOTE | 2020-03-10 12:30 | PN ---
Progress Note (short form) - Note Progress Note: Reports that she feels weak and had some vaginal bleeding. Breathing feels overall better. Intake & Output 03/07/20 03/08/20 03/09/20 03/10/20 23:59 23:59 23:59 23:59 Intake Total 1160 860 420 100 Output Total 400 550 Balance 1160 460 -130 100 Weight 190 lb 8 oz 215 lb 8 oz 209 lb 213 lb Last Vital Signs Temp Pulse Resp BP Pulse Ox 98.7 F 86 18 125/86 93 L 03/10/20 12:15 03/10/20 12:15 03/10/20 12:15 03/10/20 12:15 03/10/20 12:15 Active Medications Acetaminophen (Tylenol -) 650 mg PO Q6H PRN PRN Reason: FEVER Apixaban (Eliquis -) 2.5 mg PO BID [facility] Last Admin: 03/10/20 12:12 Dose: 2.5 mg Documented by: Artificial Tears (Artificial Tears) 1 drop OU BID PRN PRN Reason: DRY EYES Docusate Sodium (Colace -) 100 mg PO BID PRN PRN Reason: CONSTIPATION Last Admin: 03/07/20 09:28 Dose: 100 mg Documented by: Furosemide (Lasix Injection -) 40 mg IVPUSH BID@0600,1400 [facility] Last Admin: 03/10/20 05:52 Dose: 40 mg Documented by: Lactulose (Cephulac (Oral Use)) 20 gm PO TID [facility] Last Admin: 03/10/20 05:52 Dose: 20 gm Documented by: Metoprolol Succinate (Toprol Xl -) 12.5 mg PO DAILY [facility] Last Admin: 03/10/20 12:11 Dose: 12.5 mg Documented by: Oxycodone HCl (Roxicodone -) 5 mg PO Q6H PRN PRN Reason: PAIN LEVEL 6-10 Last Admin: 03/10/20 12:11 Dose: 5 mg Documented by: Rifaximin (Xifaxan -) 550 mg PO BID [facility] Last Admin: 03/10/20 12:12 Dose: 550 mg Documented by: Spironolactone (Aldactone -) 50 mg PO BID [facility] Last Admin: 03/10/20 12:12 Dose: 50 mg Documented by: Gen: NAD at rest Heart: RRR Lung: decreased breath sounds at the bases Abd: soft, nontender Ext: + edema Laboratory Results - last 24 hr 03/10/20 08:57 POC Glucometer 83 A/P Volume Overload Ascites CKD Liver Cirrhosis Atrial Fibrillation LV Diastolic Dysfunction HTN - Follow H & H - Lasix, aldactone - Monitor urine output, creatinine - Daily weights - O2 as needed - rate controlled - continue anticoagulation Dr Bauman Problem List - Problems (1) Afib Code(s): I48.91 - UNSPECIFIED ATRIAL FIBRILLATION (2) Anemia Code(s): D64.9 - ANEMIA, UNSPECIFIED (3) Ascites Code(s): R18.8 - OTHER ASCITES Qualifiers: Ascites type: other type Qualified Code(s): R18.8 - Other ascites (4) CKD (chronic kidney disease) Code(s): N18.9 - CHRONIC KIDNEY DISEASE, UNSPECIFIED (5) Chronic liver disease and cirrhosis Code(s): K74.60 - UNSPECIFIED CIRRHOSIS OF LIVER; K76.9 - LIVER DISEASE, UN SPECIFIED (6) Cirrhosis of liver with ascites Code(s): K74.60 - UNSPECIFIED CIRRHOSIS OF LIVER; R18.8 - OTHER ASCITES (7) Cor pulmonale Code(s): I27.81 - COR PULMONALE (CHRONIC) (8) Cryptogenic cirrhosis Code(s): K74.69 - OTHER CIRRHOSIS OF LIVER (9) Edema Code(s): R60.9 - EDEMA, UNSPECIFIED (10) Edema of abdominal wall Code(s): R60.0 - LOCALIZED EDEMA (11) HTN (hypertension) Code(s): I10 - ESSENTIAL (PRIMARY) HYPERTENSION (12) Hypotension Code(s): I95.9 - HYPOTENSION, UNSPECIFIED (13) 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
[2020-03-10 12:31] LABS: BASO % 0.5 % (0-2.0); EOS % 0.9 % (0-4.5); HEMATOCRIT 28.4 % (32.4-45.2); HEMOGLOBIN 9.2 GM/dL (10.7-15.3); LYMPH % 5.8 % (8-40); MCH 30.8 pg (25.7-33.7); MCHC 32.5 g/dl (32.0-36.0); MEAN PLT VOLUME 10.9 fl (7.5-11.1); MONO % 10.4 % (3.8-10.2); NEUT % 82.4 % (42.8-82.8); PLATELET COUNT 60 K/MM3 (134-434); RBC 2.99 M/mm3 (3.60-5.2); RDW 19.1 % (11.6-15.6); WHITE BLOOD COUNT 8.1 K/mm3 (4.0-10.0)
--- NOTE | 2020-03-10 12:50 | PN ---
Progress Note, Physician History of Present Illness: EVENTS NOTED EPISODE OF RIGORS THIS AM; NOTED TO HAVE RECTAL TEMP 99 STAT BLOOD WORK, CULTURES, AND CXR DONE PT PRESENTLY COMFORTABLE OFFERS NO COMPLAINTS REPORTS VAGINAL BLEED AFEBRILE BP STABLE - Current Medication List Current Medications: Active Medications Acetaminophen (Tylenol -) 650 mg PO Q6H PRN PRN Reason: FEVER Apixaban (Eliquis -) 2.5 mg PO BID [facility] Last Admin: 03/10/20 12:12 Dose: 2.5 mg Documented by: Artificial Tears (Artificial Tears) 1 drop OU BID PRN PRN Reason: DRY EYES Docusate Sodium (Colace -) 100 mg PO BID PRN PRN Reason: CONSTIPATION Last Admin: 03/07/20 09:28 Dose: 100 mg Documented by: Furosemide (Lasix Injection -) 40 mg IVPUSH BID@0600,1400 [facility] Last Admin: 03/10/20 05:52 Dose: 40 mg Documented by: Lactulose (Cephulac (Oral Use)) 20 gm PO TID [facility] Last Admin: 03/10/20 05:52 Dose: 20 gm Documented by: Metoprolol Succinate (Toprol Xl -) 12.5 mg PO DAILY [facility] Last Admin: 03/10/20 12:11 Dose: 12.5 mg Documented by: Oxycodone HCl (Roxicodone -) 5 mg PO Q6H PRN PRN Reason: PAIN LEVEL 6-10 Last Admin: 03/10/20 12:11 Dose: 5 mg Documented by: Rifaximin (Xifaxan -) 550 mg PO BID [facility] Last Admin: 03/10/20 12:12 Dose: 550 mg Documented by: Spironolactone (Aldactone -) 50 mg PO BID [facility] Last Admin: 03/10/20 12:12 Dose: 50 mg Documented by: - Objective Vital Signs: Vital Signs Temperature 98.7 F 03/10/20 12:15 Pulse Rate 86 03/10/20 12:15 Respiratory Rate 18 03/10/20 12:15 Blood Pressure 125/86 03/10/20 12:15 O2 Sat by Pulse Oximetry (%) 93 L 03/10/20 12:15 Constitutional: Yes: No Distress, Obese Eyes: Yes: Conjunctiva Clear Cardiovascular: Yes: Regular Rate and Rhythm, S1, S2 Respiratory: Yes: Diminished Gastrointestinal: Yes: Normal Bowel Sounds, Soft, Abdomen, Obese. No: Tenderness Extremities: No: Calf Tenderness Edema: Yes Labs: CBC, BMP 03/10/20 12:00 INR, PTT INR 2.14 (0.83-1.09) H 03/05/20 09:27 Assessment/Plan RIGORS R/O SEPSIS ? SOURCE SEPSIS WORKUP INITIATED EMPIRIC ANTIBIOTIC COVERAGE ZOSYN + STAT DOSE VANCOMYCIN
[2020-03-10 13:04] LABS: ALBUMIN 1.9 g/dl (3.4-5.0); BILIRUBIN,TOTAL 2.3 mg/dL (0.2-1); BLOOD UREA NITROGEN 17.4 mg/dL (7-18); CALCIUM 8.4 mg/dL (8.5-10.1); CREATININE 1.7 mg/dL (0.55-1.3); MAGNESIUM 1.6 mg/dL (1.8-2.4); POTASSIUM 3.9 mmol/L (3.5-5.1); TOT PROT 7.1 g/dl (6.4-8.2)
[2020-03-10] MEDS ORDERED: VANCOMYCIN 1 GRAM (PRE-DOCKED) 1,000 MG/250 ML BAG IVPB ONE (13:30)
--- NOTE | 2020-03-10 14:15 | PN ---
Progress Note, Physician History of Present Illness: Pt seen and examined at bedside. She is awake and alert. She denies shortness of breath. - Current Medication List Current Medications: Active Medications Acetaminophen (Tylenol -) 650 mg PO Q6H PRN PRN Reason: FEVER Apixaban (Eliquis -) 2.5 mg PO BID [facility] Last Admin: 03/10/20 12:12 Dose: 2.5 mg Documented by: Artificial Tears (Artificial Tears) 1 drop OU BID PRN PRN Reason: DRY EYES Docusate Sodium (Colace -) 100 mg PO BID PRN PRN Reason: CONSTIPATION Last Admin: 03/07/20 09:28 Dose: 100 mg Documented by: Furosemide (Lasix Injection -) 40 mg IVPUSH BID@0600,1400 [facility] Last Admin: 03/10/20 05:52 Dose: 40 mg Documented by: Piperacillin Sod/Tazobactam (Sod 2.25 gm/ Dextrose) 50 mls @ 100 mls/hr IVPB Q8H-IV [facility]; Protocol Vancomycin HCl (Vancomycin (Pre-Docked)) 1,000 mg in 250 mls @ 166.667 mls/hr IVPB ONCE ONE; Protocol Stop: 03/10/20 14:59 Lactulose (Cephulac (Oral Use)) 20 gm PO TID [facility] Last Admin: 03/10/20 05:52 Dose: 20 gm Documented by: Metoprolol Succinate (Toprol Xl -) 12.5 mg PO DAILY [facility] Last Admin: 03/10/20 12:11 Dose: 12.5 mg Documented by: Oxycodone HCl (Roxicodone -) 5 mg PO Q6H PRN PRN Reason: PAIN LEVEL 6-10 Last Admin: 03/10/20 12:11 Dose: 5 mg Documented by: Rifaximin (Xifaxan -) 550 mg PO BID [facility] Last Admin: 03/10/20 12:12 Dose: 550 mg Documented by: Spironolactone (Aldactone -) 50 mg PO BID [facility] Last Admin: 03/10/20 12:12 Dose: 50 mg Documented by: - Objective Vital Signs: Vital Signs Temperature 98.7 F 03/10/20 12:15 Pulse Rate 86 03/10/20 12:15 Respiratory Rate 18 03/10/20 12:15 Blood Pressure 125/86 03/10/20 12:15 O2 Sat by Pulse Oximetry (%) 93 L 03/10/20 12:15 Constitutional: Yes: Calm Eyes: Yes: Conjunctiva Clear Cardiovascular: Yes: S1, S2 Respiratory: Yes: CTA Bilaterally, On Nasal O2 Gastrointestinal: Yes: Soft, Abdomen, Obese Genitourinary: Yes: WNL Musculoskeletal: Yes: Muscle Weakness Edema: Yes Edema: LLE: 2+, RLE: 2+ Neurological: Yes: Oriented Psychiatric: Yes: Oriented Labs: CBC, BMP 03/10/20 12:00 03/10/20 12:00 INR, PTT INR 2.14 (0.83-1.09) H 03/05/20 09:27 Problem List - Problems (1) CHF (congestive heart failure) Code(s): I50.9 - HEART FAILURE, UNSPECIFIED Qualifiers: Heart failure type: unspecified Heart failure chronicity: unspecified Qualified Code(s): I50.9 - Heart failure, unspecified (2) Lactic acidosis Code(s): E87.2 - ACIDOSIS Assessment/Plan Current Medications Generic Name Dose Route Start Last Admin Trade Name Freq PRN Reason Stop Dose Admin Acetaminophen 650 mg 03/04/20 20:04 Tylenol - PO Q6H PRN FEVER Apixaban 2.5 mg 03/04/20 22:00 03/10/20 12:12 Eliquis - PO 2.5 mg BID [facility] Administration Artificial Tears 1 drop 03/04/20 20:04 Artificial Tears OU BID PRN DRY EYES Docusate Sodium 100 mg 03/04/20 20:04 03/07/20 09:28 Colace - PO 100 mg BID PRN Administration CONSTIPATION Furosemide 40 mg 03/05/20 06:00 03/10/20 05:52 Lasix Injection - IVPUSH 40 mg BID@0600,1400 [facility] Administration Piperacillin Sod/Tazobactam 50 mls @ 100 mls/hr 03/10/20 13:00 Sod 2.25 gm/ Dextrose IVPB Q8H-IV [facility] Protocol Vancomycin HCl 1,000 mg in 250 mls @ 166.667 mls/hr 03/10/20 13:30 Vancomycin (Pre-Docked) IVPB 03/10/20 14:59 ONCE ONE Protocol Lactulose 20 gm 03/04/20 22:00 03/10/20 05:52 Cephulac (Oral Use) PO 20 gm TID [facility] Administration Metoprolol Succinate 12.5 mg 03/06/20 11:03 03/10/20 12:11 Toprol Xl - PO 12.5 mg DAILY [facility] Administration Oxycodone HCl 5 mg 03/09/20 21:05 03/10/20 12:11 Roxicodone - PO 5 mg Q6H PRN Administration PAIN LEVEL 6-10 Rifaximin 550 mg 03/04/20 22:00 03/10/20 12:12 Xifaxan - PO 550 mg BID [facility] Administration Spironolactone 50 mg 03/06/20 22:00 03/10/20 12:12 Aldactone - PO 50 mg BID [facility] Administration Impression 1. CKD 2. ascites 3. liver cirrhosis 4. ileus 5. microscopic hematuria 6. fluid overload 7. a-fib 8. 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
[2020-03-10] MEDS ORDERED: PIPERACILLIN/TAZOBACTAM 2.25 GM VIAL IVPB ONE (15:39)
[2020-03-10] MEDS ORDERED: DEXTROSE 5%-WATER - 50 ML IVPB ONE (15:39)
[2020-03-10] MEDS: PIPERACILLIN/TAZOB 2.25 GM 2.25 GM in DEXTROSE 5%-WATER - 50 ML IVPB SCH ×2 (16:12→17:57)
[2020-03-10 17:48] LABS: EPI CELLS 4 /uL (0-25.1); HYALINE CASTS 2 /uL (0-3.1); URINE APPEARANCE CLOUDY; URINE BILIRUBIN NEGATIVE (NEGATIVE); URINE COLOR YELLOW; URINE GLUCOSE (UA) NEGATIVE (NEGATIVE); URINE KETONE NEGATIVE (NEGATIVE); URINE LEUK ESTERASE 2+ (NEGATIVE); URINE NITRITE NEGATIVE (NEGATIVE); URINE PROTEIN TRACE (NEGATIVE); URINE RBC 728 /uL (0-23.9); URINE UROBILINOGEN 0.2 mg/dL (0.2-1.0); URINE WBC 167 /uL (0-25.8)
--- NOTE | 2020-03-10 20:25 | PN.GI ---
GI Progress Note Subjective: GI NOte: Called for rectal bleeding. On exam the bleeding is clearly from the vagina. She has light brown guaiac negative stool in the rectum - Objective Vital Signs: Vital Signs Temperature 98.2 F 03/10/20 18:00 Pulse Rate 73 03/10/20 18:00 Respiratory Rate 18 03/10/20 18:00 Blood Pressure 92/52 L 03/10/20 18:00 O2 Sat by Pulse Oximetry (%) 98 03/10/20 18:00 CBC,CMP WBC 8.1 K/mm3 (4.0-10.0) 03/10/20 12:00 RBC 2.99 M/mm3 (3.60-5.2) L 03/10/20 12:00 Hgb 9.2 GM/dL (10.7-15.3) L 03/10/20 12:00 Hct 28.4 % (32.4-45.2) L 03/10/20 12:00 MCV 95.0 fl (80-96) 03/10/20 12:00 MCH 30.8 pg (25.7-33.7) 03/10/20 12:00 MCHC 32.5 g/dl (32.0-36.0) 03/10/20 12:00 RDW 19.1 % (11.6-15.6) H 03/10/20 12:00 Plt Count 60 K/MM3 (134-434) L 03/10/20 12:00 MPV 10.9 fl (7.5-11.1) 03/10/20 12:00 Absolute Neuts (auto) 6.7 K/mm3 (1.5-8.0) 03/10/20 12:00 Neutrophils % 82.4 % (42.8-82.8) D 03/10/20 12:00 Lymphocytes % 5.8 % (8-40) L D 03/10/20 12:00 Monocytes % 10.4 % (3.8-10.2) H 03/10/20 12:00 Eosinophils % 0.9 % (0-4.5) 03/10/20 12:00 Basophils % 0.5 % (0-2.0) 03/10/20 12:00 Nucleated RBC % 0 % (0-0) 03/10/20 12:00 Retic Count 3.27 % (0.5-1.5) H D 03/03/20 20:45 Sodium 136 mmol/L (136-145) 03/10/20 12:00 Potassium 3.9 mmol/L (3.5-5.1) 03/10/20 12:00 Chloride 98 mmol/L (98-107) 03/10/20 12:00 Carbon Dioxide 32 mmol/L (21-32) 03/10/20 12:00 Anion Gap 6 MMOL/L (8-16) L 03/10/20 12:00 BUN 17.4 mg/dL (7-18) 03/10/20 12:00 Creatinine 1.7 mg/dL (0.55-1.3) H 03/10/20 12:00 Est GFR (CKD-EPI)AfAm 33.37 03/10/20 12:00 Est GFR (CKD-EPI)NonAf 28.79 03/10/20 12:00 POC Glucometer 83 UNITS (80-120) 03/10/20 08:57 Random Glucose 93 mg/dL (74-106) 03/10/20 12:00 Hemoglobin A1c % < 3.5 % (4.2-6.3) L 03/03/20 05:50 Lactic Acid 2.7 mmol/L (0.4-2.0) H* 03/10/20 12:07 Calcium 8.4 mg/dL (8.5-10.1) L 03/10/20 12:00 Phosphorus 3.0 mg/dL (2.5-4.9) 03/10/20 12:00 Magnesium 1.6 mg/dL (1.8-2.4) L 03/10/20 12:00 Iron 50 ug/dL (50-175) 03/03/20 20:45 TIBC 123 ug/dL (250-450) L 03/03/20 20:45 Iron Saturation 40 % (17.5-39) H 03/03/20 20:45 Unsaturated IBC 73 ug/dL (200-275) L 03/03/20 20:45 Ferritin 181.9 ng/ml (8-388) 03/03/20 20:45 Total Bilirubin 2.3 mg/dL (0.2-1) H 03/10/20 12:00 AST 57 U/L (15-37) H 03/10/20 12:00 ALT 20 U/L (13-61) 03/10/20 12:00 Alkaline Phosphatase 114 U/L (45-117) 03/10/20 12:00 Ammonia 35.70 umol/L (11-32) H 03/04/20 09:38 LD Total 284 U/L (84-246) H 03/03/20 20:45 Creatine Kinase 100 U/L (26-192) 03/02/20 14:15 Troponin I < 0.02 ng/ml (0.00-0.05) 03/02/20 14:15 B-Natriuretic Peptide 697.8 pg/ml (5-450) H 03/02/20 14:15 Total Protein 7.1 g/dl (6.4-8.2) 03/10/20 12:00 Total Protein (PEP) 6.6 g/dL (6.0-8.5) 03/07/20 05:45 Albumin 1.9 g/dl (3.4-5.0) L 03/10/20 12:00 Albumin (PEP) 2.4 gm/dl (2.9-4.4) L 03/07/20 05:45 Globulin 4.2 g/dL (2.2-3.9) H 03/07/20 05:45 Albumin/Globulin Ratio 0.6 (0.7-1.7) L 03/07/20 05:45 Beta Globulins 1.1 gm/dL (0.7-1.3) 03/07/20 05:45 Triglycerides 45 mg/dL (0-150) 03/03/20 05:50 Cholesterol 79 mg/dL (50-200) 03/03/20 05:50 Total LDL Cholesterol 40 mg/dL (5-100) 03/03/20 05:50 HDL Cholesterol 24 mg/dL (40-60) L 03/03/20 05:50 Lipase 114 U/L (73-393) 03/02/20 14:15 Vitamin B12 493 pg/ml (193-986) 03/03/20 20:45 Serum Folate 30 ng/mL (3.1-17.5) H 03/03/20 20:45 TSH 5.61 uIU/ml (0.358-3.74) H 03/03/20 05:50 Free T4 1.24 ng/dl (0.76-1.46) 03/03/20 05:50 Constitutional: Anxious ...Auscultate: Yes: Normoactive Bowel Sounds ...Palpate: Yes: Soft, Other (nontender) Labs: CBC, BMP 03/10/20 12:00 03/10/20 12:00 INR, PTT INR 2.14 (0.83-1.09) H 03/05/20 09:27 Assessment/Plan Impression: - Vaginal, not rectal bleeding - Cirrhosis seconmdary to KING with hepatic encephalopathy, thrombocytopenia, portal vein thrombosis and ascites that is proving to be refractory to oral diuretics ( Maya tells me that no food is brought into the NH by family or friends) in the setting of CKD and risk of lapsing onto hepatorenal syndrome Plan: - Will order repeat CBC and Type and Cross. Advised test case developer evaluation - Diuretic regimen as already started by Dr Ramesh Problem List - Problems (1) Vaginal bleeding Code(s): N93.9 - ABNORMAL UTERINE AND VAGINAL BLEEDING, UNSPECIFIED (2) 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 steatohepatitis) Code(s): K75.81 - NONALCOHOLIC STEATOHEPATITIS (KING); K74.60 - UNSPECIFIED CIRRHOSIS OF LIVER (3) Portal vein thrombosis Code(s): I81 - PORTAL VEIN THROMBOSIS (4) Thrombocytopenia Code(s): D69.6 - THROMBOCYTOPENIA, UNSPECIFIED (5) Hepatic encephalopathy Code(s): K72.90 - HEPATIC FAILURE, UNSPECIFIED WITHOUT COMA (6) Edema Code(s): R60.9 - EDEMA, UNSPECIFIED (7) CKD (chronic kidney disease) Code(s): N18.9 - CHRONIC KIDNEY DISEASE, UNSPECIFIED (8) Cirrhosis of liver with ascites Code(s): K74.60 - UNSPECIFIED CIRRHOSIS OF LIVER; R18.8 - OTHER ASCITES (9) Edema of abdominal wall Code(s): R60.0 - LOCALIZED EDEMA (10) Paroxysmal atrial fibrillation with rapid ventricular response Code(s): I48.0 - PAROXYSMAL ATRIAL FIBRILLATION
[2020-03-10 21:32] LABS: BASO % 0.3 % (0-2.0); EOS % 1.7 % (0-4.5); HEMATOCRIT 27.8 % (32.4-45.2); HEMOGLOBIN 9.1 GM/dL (10.7-15.3); LYMPH % 7.7 % (8-40); MCH 30.6 pg (25.7-33.7); MCHC 32.6 g/dl (32.0-36.0); MEAN CELL VOLUME 93.8 fl (80-96); MEAN PLT VOLUME 10.1 fl (7.5-11.1); MONO % 10.4 % (3.8-10.2); NEUT % 79.9 % (42.8-82.8); PLATELET COUNT 60 K/MM3 (134-434); RBC 2.97 M/mm3 (3.60-5.2); RDW 18.7 % (11.6-15.6); WHITE BLOOD COUNT 8.3 K/mm3 (4.0-10.0)
[2020-03-10 21:46] LABS: INR 2.24 (0.83-1.09); PROTHROMBIN TIME (PATIENT) 26.7 SEC (9.7-13.0)
[2020-03-11] MEDS ORDERED: DEXTROSE 5%-WATER - 50 ML IVPB ONE ×2 (00:41→10:52)
[2020-03-11] MEDS ORDERED: PIPERACILLIN/TAZOBACTAM 2.25 GM VIAL IVPB ONE ×2 (00:41→10:52)
[2020-03-11] MEDS: PIPERACILLIN/TAZOB 2.25 GM 2.25 GM in DEXTROSE 5%-WATER - 50 ML IVPB SCH ×2 (01:08→11:05)
[2020-03-11] MEDS: FUROSEMIDE 40 MG/4 ML INJECTABLE VIAL IVPUSH SCH ×4 (05:22→17:58)
[2020-03-11] MEDS: LACTULOSE 20 GM/30 ML UDC (FOR ORAL USE ONLY) PO SCH ×3 (05:22→21:03)
[2020-03-11 08:17] LABS: ALBUMIN 1.8 g/dl (3.4-5.0); BILIRUBIN,TOTAL 2.4 mg/dL (0.2-1); BLOOD UREA NITROGEN 16.2 mg/dL (7-18); CALCIUM 7.9 mg/dL (8.5-10.1); CREATININE 1.9 mg/dL (0.55-1.3); POTASSIUM 3.8 mmol/L (3.5-5.1); TOT PROT 6.5 g/dl (6.4-8.2)
[2020-03-11] MEDS ORDERED: traMADol HCL 50 MG TABLET PO PRN (10:35)
--- NOTE | 2020-03-11 10:42 | PN ---
Progress Note, Physician Chief Complaint: Ascites Cryptogenic cirrhosis CKD History of Present Illness: NAD CXR done- negative BC + GNR C/O vaginal bleeding. 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 pending Eliquis was held last evening, would resume today, pt holding H/H well - Current Medication List Current Medications: Active Medications Acetaminophen (Tylenol -) 650 mg PO Q6H PRN PRN Reason: FEVER Apixaban (Eliquis -) 2.5 mg PO BID [facility] Last Admin: 03/10/20 12:12 Dose: 2.5 mg Documented by: Artificial Tears (Artificial Tears) 1 drop OU BID PRN PRN Reason: DRY EYES Docusate Sodium (Colace -) 100 mg PO BID PRN PRN Reason: CONSTIPATION Last Admin: 03/07/20 09:28 Dose: 100 mg Documented by: Furosemide (Lasix Injection -) 40 mg IVPUSH BID@0600,1400 [facility] Last Admin: 03/11/20 05:35 Dose: Not Given Documented by: Piperacillin Sod/Tazobactam (Sod 2.25 gm/ Dextrose) 50 mls @ 100 mls/hr IVPB Q8H-IV [facility]; Protocol Last Admin: 03/11/20 01:08 Dose: 100 mls/hr Documented by: Lactulose (Cephulac (Oral Use)) 20 gm PO TID [facility] Last Admin: 03/11/20 05:22 Dose: 20 gm Documented by: Metoprolol Succinate (Toprol Xl -) 12.5 mg PO DAILY [facility] Last Admin: 03/10/20 12:11 Dose: 12.5 mg Documented by: Rifaximin (Xifaxan -) 550 mg PO BID [facility] Last Admin: 03/10/20 21:51 Dose: 550 mg Documented by: Spironolactone (Aldactone -) 50 mg PO BID [facility] Last Admin: 03/10/20 21:51 Dose: 50 mg Documented by: Tramadol HCl (Ultram -) 50 mg PO Q8H PRN PRN Reason: PAIN LEVEL 6-10 - Objective Vital Signs: Vital Signs Temperature 98.4 F 03/11/20 05:32 Pulse Rate 78 03/11/20 05:32 Respiratory Rate 20 03/11/20 05:32 Blood Pressure 89/47 L 03/11/20 05:32 O2 Sat by Pulse Oximetry (%) 99 03/11/20 05:32 Constitutional: Yes: Well Nourished, No Distress, Calm, Obese Cardiovascular: Yes: Regular Rate and Rhythm Respiratory: Yes: Regular, CTA Bilaterally Gastrointestinal: Yes: Normal Bowel Sounds, Soft, Abdomen, Obese, Ascites (RLQ) Genitourinary: Yes: WNL Musculoskeletal: Yes: Muscle Weakness Extremities: Yes: WNL Edema: Yes Edema: LLE: 3+, RLE: 3+ Peripheral Pulses WNL: Yes Neurological: Yes: Alert, Oriented Psychiatric: Yes: Alert, Oriented Labs: CBC, BMP 03/10/20 21:03 03/11/20 07:00 INR, PTT INR 2.24 (0.83-1.09) H 03/10/20 21:03 Problem List - Problems (1) Afib Assessment/Plan: -Chronic, rate controlled -Continue Eliquis Problems reviewed: Yes Code(s): I48.91 - UNSPECIFIED ATRIAL FIBRILLATION (2) Anemia Assessment/Plan: -acute vs Chronic -2/2 to chronic liver disease -+ Vaginal bleed -CASE ASSEMBLER consult pending -Add CA 125 -Monitor trend -Transfuse only if Hg<7.0 to avoid fluid overload Problems reviewed: Yes Code(s): D64.9 - ANEMIA, UNSPECIFIED (3) CKD (chronic kidney disease) Assessment/Plan: -nephrology consult -Continue furosemide 40 mg IVP BID -Continue Spironolactone 50 mg po daily Problems reviewed: Yes Code(s): N18.9 - CHRONIC KIDNEY DISEASE, UNSPECIFIED (4) Cryptogenic cirrhosis Assessment/Plan: -GI consult -Continue lactulose + rifaxamin Problems reviewed: Yes Code(s): K74.69 - OTHER CIRRHOSIS OF LIVER (5) Edema of abdominal wall Assessment/Plan: -Continue Furosemide 40 mg IV BID -Continue spironolactone Problems reviewed: Yes Code(s): R60.0 - LOCALIZED EDEMA (6) Lactic acidosis Assessment/Plan: -chronic -Repeat CXR-negative -Labs/BC/UC pending Problems reviewed: Yes Code(s): E87.2 - ACIDOSIS (7) Vaginal bleeding Assessment/Plan: -Transvaginal U/S reviewed -CASE ASSEMBLER consult -Add ca125 Problems reviewed: Yes Code(s): N93.9 - ABNORMAL UTERINE AND VAGINAL BLEEDING, UNSPECIFIED (8) Bacteremia Problems reviewed: Yes Code(s): R78.81 - BACTEREMIA Assessment/Plan See problem list Spoke to son Jefferson to update pt status.
[2020-03-11] MEDS: SPIRONOLACTONE 25 MG TABLET PO SCH ×2 (11:08→21:02)
[2020-03-11] MEDS: metoPROLOL SUCCINATE 25 MG TAB.SR.24H (FP) PO SCH (11:09)
[2020-03-11] MEDS: RIFAXIMIN 550 MG TABLET (UD) PO SCH ×2 (11:09→21:07)
[2020-03-11] MEDS: APIXABAN 2.5 MG TABLET PO SCH ×2 (11:10→21:02)
--- NOTE | 2020-03-11 11:53 | PN ---
Progress Note (short form) - Note Progress Note: 74 yo with vaginal spotting . on anticoagulant TVS done, reviewed, normal EM , no fibroid bleeding most likelyrelated to anticoagulant and abnormality of liver since has no avtive, heavy vaginal bleeding advised monitor PTT, INR if bleeding cont. or heavy vaginal bleeding if medically stable may need hysteoscopy, D&C
--- NOTE | 2020-03-11 12:06 | PN ---
Progress Note (short form) - Note Progress Note: Feels a little better today but still with vaginal bleeding. Breathing feels overall better. Intake & Output 03/08/20 03/09/20 03/10/20 03/11/20 23:59 23:59 23:59 23:59 Intake Total 860 420 400 50 Output Total 400 550 Balance 460 -130 400 50 Weight 215 lb 8 oz 209 lb 213 lb Last Vital Signs Temp Pulse Resp BP Pulse Ox 98.4 F 78 20 89/47 L 99 03/11/20 05:32 03/11/20 05:32 03/11/20 05:32 03/11/20 05:32 03/11/20 05:32 Active Medications Acetaminophen (Tylenol -) 650 mg PO Q6H PRN PRN Reason: FEVER Apixaban (Eliquis -) 2.5 mg PO BID [facility] Last Admin: 03/11/20 11:10 Dose: 2.5 mg Documented by: Artificial Tears (Artificial Tears) 1 drop OU BID PRN PRN Reason: DRY EYES Docusate Sodium (Colace -) 100 mg PO BID PRN PRN Reason: CONSTIPATION Last Admin: 03/07/20 09:28 Dose: 100 mg Documented by: Furosemide (Lasix Injection -) 40 mg IVPUSH BID@0600,1400 [facility] Last Admin: 03/11/20 11:12 Dose: 40 mg Documented by: Piperacillin Sod/Tazobactam (Sod 2.25 gm/ Dextrose) 50 mls @ 100 mls/hr IVPB Q8H-IV [facility]; Protocol Last Admin: 03/11/20 11:05 Dose: 100 mls/hr Documented by: Lactulose (Cephulac (Oral Use)) 20 gm PO TID [facility] Last Admin: 03/11/20 05:22 Dose: 20 gm Documented by: Metoprolol Succinate (Toprol Xl -) 12.5 mg PO DAILY [facility] Last Admin: 03/11/20 11:09 Dose: Not Given Documented by: Rifaximin (Xifaxan -) 550 mg PO BID [facility] Last Admin: 03/11/20 11:09 Dose: 550 mg Documented by: Spironolactone (Aldactone -) 50 mg PO BID [facility] Last Admin: 03/11/20 11:08 Dose: 50 mg Documented by: Tramadol HCl (Ultram -) 50 mg PO Q8H PRN PRN Reason: PAIN LEVEL 6-10 Gen: NAD at rest Heart: RRR Lung: decreased breath sounds at the bases Abd: soft, nontender Ext: + edema Laboratory Results - last 24 hr 03/07/20 03/07/20 03/10/20 05:45 11:49 12:00 WBC 8.1 RBC 2.99 L Hgb 9.2 L Hct 28.4 L MCV 95.0 MCH 30.8 MCHC 32.5 RDW 19.1 H Plt Count 60 L MPV 10.9 Absolute Neuts (auto) 6.7 Neutrophils % 82.4 D Lymphocytes % 5.8 L D Monocytes % 10.4 H Eosinophils % 0.9 Basophils % 0.5 Nucleated RBC % 0 PT with INR INR Sodium Potassium Chloride Carbon Dioxide Anion Gap BUN Creatinine Est GFR (CKD-EPI)AfAm Est GFR (CKD-EPI)NonAf Random Glucose Lactic Acid Calcium Phosphorus Magnesium Total Bilirubin AST ALT Alkaline Phosphatase Total Protein Total Protein (PEP) 6.6 Albumin Albumin (PEP) 2.4 L Globulin 4.2 H Albumin/Globulin Ratio 0.6 L Beta Globulins 1.1 Urine Color Urine Appearance Urine pH Ur Specific [place] Urine Protein Urine Glucose (UA) Urine Ketones Urine Blood Urine Nitrite Urine Bilirubin Urine Urobilinogen Ur Leukocyte Esterase Urine WBC (Auto) Urine RBC (Auto) Urine Casts (Auto) U Epithel Cells (Auto) Urine Bacteria (Auto) ALISON M-Scotty Not observed Blood Type O POSITIVE Antibody Screen Negative Crossmatch See Detail 03/10/20 03/10/20 03/10/20 12:00 12:07 16:15 WBC RBC Hgb Hct MCV MCH MCHC RDW Plt Count MPV Absolute Neuts (auto) Neutrophils % Lymphocytes % Monocytes % Eosinophils % Basophils % Nucleated RBC % PT with INR INR Sodium 136 Potassium 3.9 Chloride 98 Carbon Dioxide 32 Anion Gap 6 L BUN 17.4 Creatinine 1.7 H Est GFR (CKD-EPI)AfAm 33.37 Est GFR (CKD-EPI)NonAf 28.79 Random Glucose 93 Lactic Acid 2.7 H* Calcium 8.4 L Phosphorus 3.0 Magnesium 1.6 L Total Bilirubin 2.3 H AST 57 H ALT 20 Alkaline Phosphatase 114 Total Protein 7.1 Total Protein (PEP) Albumin 1.9 L Albumin (PEP) Globulin Albumin/Globulin Ratio Beta Globulins Urine Color Yellow Urine Appearance Cloudy Urine pH 6.0 Ur Specific [place] 1.011 Urine Protein Trace Urine Glucose (UA) Negative Urine Ketones Negative Urine Blood 3+ H Urine Nitrite Negative Urine Bilirubin Negative Urine Urobilinogen 0.2 Ur Leukocyte Esterase 2+ H Urine WBC (Auto) 167 Urine RBC (Auto) 728 Urine Casts (Auto) 2 U Epithel Cells (Auto) 4 Urine Bacteria (Auto) >10,000 ALISON M-Scotty Blood Type Antibody Screen Crossmatch 03/10/20 03/10/20 03/10/20 21:03 21:03 21:03 WBC 8.3 RBC 2.97 L Hgb 9.1 L Hct 27.8 L MCV 93.8 MCH 30.6 MCHC 32.6 RDW 18.7 H Plt Count 60 L MPV 10.1 Absolute Neuts (auto) 6.6 Neutrophils % 79.9 Lymphocytes % 7.7 L D Monocytes % 10.4 H Eosinophils % 1.7 D Basophils % 0.3 Nucleated RBC % 0 PT with INR 26.70 H INR 2.24 H Sodium Potassium Chloride Carbon Dioxide Anion Gap BUN Creatinine Est GFR (CKD-EPI)AfAm Est GFR (CKD-EPI)NonAf Random Glucose Lactic Acid Calcium Phosphorus Magnesium Total Bilirubin AST ALT Alkaline Phosphatase Total Protein Total Protein (PEP) Albumin Albumin (PEP) Globulin Albumin/Globulin Ratio Beta Globulins Urine Color Urine Appearance Urine pH Ur Specific [place] Urine Protein Urine Glucose (UA) Urine Ketones Urine Blood Urine Nitrite Urine Bilirubin Urine Urobilinogen Ur Leukocyte Esterase Urine WBC (Auto) Urine RBC (Auto) Urine Casts (Auto) U Epithel Cells (Auto) Urine Bacteria (Auto) ALISON M-Scotty Blood Type O POSITIVE Antibody Screen Negative Crossmatch 03/11/20 07:00 WBC RBC Hgb Hct MCV MCH MCHC RDW Plt Count MPV Absolute Neuts (auto) Neutrophils % Lymphocytes % Monocytes % Eosinophils % Basophils % Nucleated RBC % PT with INR INR Sodium 136 Potassium 3.8 Chloride 98 Carbon Dioxide 31 Anion Gap 6 L BUN 16.2 Creatinine 1.9 H Est GFR (CKD-EPI)AfAm 29.17 Est GFR (CKD-EPI)NonAf 25.17 Random Glucose 88 Lactic Acid Calcium 7.9 L Phosphorus Magnesium Total Bilirubin 2.4 H AST 45 H ALT 18 Alkaline Phosphatase 97 Total Protein 6.5 Total Protein (PEP) Albumin 1.8 L Albumin (PEP) Globulin Albumin/Globulin Ratio Beta Globulins Urine Color Urine Appearance Urine pH Ur Specific [place] Urine Protein Urine Glucose (UA) Urine Ketones Urine Blood Urine Nitrite Urine Bilirubin Urine Urobilinogen Ur Leukocyte Esterase Urine WBC (Auto) Urine RBC (Auto) Urine Casts (Auto) U Epithel Cells (Auto) Urine Bacteria (Auto) ALISON M-Scotty Blood Type Antibody Screen Crossmatch A/P Volume Overload Ascites CKD Liver Cirrhosis Atrial Fibrillation LV Diastolic Dysfunction HTN - Follow H & H - Lasix, aldactone - Monitor urine output, creatinine - Daily weights - O2 as needed - rate controlled - continue anticoagulation Dr Bauman Problem List - Problems (1) Afib Code(s): I48.91 - UNSPECIFIED ATRIAL FIBRILLATION (2) Anemia Code(s): D64.9 - ANEMIA, UNSPECIFIED (3) Ascites Code(s): R18.8 - OTHER ASCITES Qualifiers: Ascites type: other type Qualified Code(s): R18.8 - Other ascites (4) CKD (chronic kidney disease) Code(s): N18.9 - CHRONIC KIDNEY DISEASE, UNSPECIFIED (5) Chronic liver disease and cirrhosis Code(s): K74.60 - UNSPECIFIED CIRRHOSIS OF LIVER; K76.9 - LIVER DISEASE, UNSPECIFIED (6) Cirrhosis of liver with ascites Code(s): K74.60 - UNSPECIFIED CIRRHOSIS OF LIVER; R18.8 - OTHER ASCITES (7) Cor pulmonale Code(s): I27.81 - COR PULMONALE (CHRONIC) (8) Cryptogenic cirrhosis Code(s): K74.69 - OTHER CIRRHOSIS OF LIVER (9) Edema Code(s): R60.9 - EDEMA, UNSPECIFIED (10) Edema of abdominal wall Code(s): R60.0 - LOCALIZED EDEMA (11) HTN (hypertension) Code(s): I10 - ESSENTIAL (PRIMARY) HYPERTENSION (12) Hypotension Code(s): I95.9 - HYPOTENSION, UNSPECIFIED (13) 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
[2020-03-11] MEDS ORDERED: PHYTONADIONE 5 MG TABLET PO ONE (14:02)
--- NOTE | 2020-03-11 14:18 | PN ---
Progress Note, Physician History of Present Illness: Pt seen and examined at bedside. She is awake and alert. She denies shortness of breath. - Current Medication List Current Medications: Active Medications Acetaminophen (Tylenol -) 650 mg PO Q6H PRN PRN Reason: FEVER Apixaban (Eliquis -) 2.5 mg PO BID [facility] Last Admin: 03/11/20 11:10 Dose: 2.5 mg Documented by: Artificial Tears (Artificial Tears) 1 drop OU BID PRN PRN Reason: DRY EYES Docusate Sodium (Colace -) 100 mg PO BID PRN PRN Reason: CONSTIPATION Last Admin: 03/07/20 09:28 Dose: 100 mg Documented by: Furosemide (Lasix Injection -) 40 mg IVPUSH BID@0600,1400 [facility] Last Admin: 03/11/20 11:12 Dose: 40 mg Documented by: Piperacillin Sod/Tazobactam (Sod 2.25 gm/ Dextrose) 50 mls @ 100 mls/hr IVPB Q8H-IV [facility]; Protocol Last Admin: 03/11/20 11:05 Dose: 100 mls/hr Documented by: Lactulose (Cephulac (Oral Use)) 20 gm PO TID [facility] Last Admin: 03/11/20 05:22 Dose: 20 gm Documented by: Metoprolol Succinate (Toprol Xl -) 12.5 mg PO DAILY [facility] Last Admin: 03/11/20 11:09 Dose: Not Given Documented by: Rifaximin (Xifaxan -) 550 mg PO BID [facility] Last Admin: 03/11/20 11:09 Dose: 550 mg Documented by: Spironolactone (Aldactone -) 50 mg PO BID [facility] Last Admin: 03/11/20 11:08 Dose: 50 mg Documented by: Tramadol HCl (Ultram -) 50 mg PO Q8H PRN PRN Reason: PAIN LEVEL 6-10 - Objective Vital Signs: Vital Signs Temperature 98.4 F 03/11/20 05:32 Pulse Rate 78 03/11/20 05:32 Respiratory Rate 20 03/11/20 05:32 Blood Pressure 89/47 L 03/11/20 05:32 O2 Sat by Pulse Oximetry (%) 99 03/11/20 05:32 Constitutional: Yes: Calm Eyes: Yes: Conjunctiva Clear HENT: Yes: Atraumatic Neck: Yes: Supple Cardiovascular: Yes: S1, S2 Respiratory: Yes: CTA Bilaterally Gastrointestinal: Yes: Normal Bowel Sounds, Soft Genitourinary: Yes: WNL Musculoskeletal: Yes: WNL Edema: Yes Edema: LLE: 2+, RLE: 2+ Neurological: Yes: Oriented Psychiatric: Yes: Oriented Labs: CBC, BMP 03/10/20 21:03 03/11/20 07:00 INR, PTT INR 2.24 (0.83-1.09) H 03/10/20 21:03 Problem List - Problems (1) CHF (congestive heart failure) Code(s): I50.9 - HEART FAILURE, UNSPECIFIED Qualifiers: Heart failure type: unspecified Heart failure chronicity: unspecified Qualified Code(s): I50.9 - Heart failure, unspecified (2) Lactic acidosis Code(s): E87.2 - ACIDOSIS Assessment/Plan Current Medications Generic Name Dose Route Start Last Admin Trade Name Freq PRN Reason Stop Dose Admin Acetaminophen 650 mg 03/04/20 20:04 Tylenol - PO Q6H PRN FEVER Apixaban 2.5 mg 03/04/20 22:00 03/11/20 11:10 Eliquis - PO 2.5 mg BID [facility] Administration Artificial Tears 1 drop 03/04/20 20:04 Artificial Tears OU BID PRN DRY EYES Docusate Sodium 100 mg 03/04/20 20:04 03/07/20 09:28 Colace - PO 100 mg BID PRN Administration CONSTIPATION Furosemide 40 mg 03/05/20 06:00 03/11/20 11:12 Lasix Injection - IVPUSH 40 mg BID@0600,1400 [facility] Administration Piperacillin Sod/Tazobactam 50 mls @ 100 mls/hr 03/10/20 13:00 03/11/20 11:05 Sod 2.25 gm/ Dextrose IVPB 100 mls/hr Q8H-IV [facility] Administration Protocol Lactulose 20 gm 03/04/20 22:00 03/11/20 05:22 Cephulac (Oral Use) PO 20 gm TID [facility] Administration Metoprolol Succinate 12.5 mg 03/06/20 11:03 03/11/20 11:09 Toprol Xl - PO Not Given DAILY [facility] Rifaximin 550 mg 03/04/20 22:00 07/21/20 11:09 Xifaxan - PO 550 mg BID [facility] Administration Spironolactone 50 mg 03/06/20 22:00 03/11/20 11:08 Aldactone - PO 50 mg BID [facility] Administration Tramadol HCl 50 mg 03/11/20 10:35 Ultram - PO Q8H PRN PAIN LEVEL 6-10 Impression 1. CKD 2. ascites 3. liver cirrhosis 4. ileus 5. microscopic hematuria 6. fluid overload 7. a-fib 8. hyperkalemia Plan - cont diuretics - will give albumin - repeat labs in am - encourage po intake - cont lasix - cont aldactone - still not euvolemic - daily weights
[2020-03-11] MEDS ORDERED: VANCOMYCIN 1 GRAM (PRE-DOCKED) 1,000 MG/250 ML BAG IVPB ONE (14:24)
--- NOTE | 2020-03-11 14:24 | PN ---
Progress Note, Physician History of Present Illness: BLOOD C/S + 4/4 BOTTLES GRAM POS RODS! AWAKE, ALERT IN BED NO COMPLAINTS NO RECURRENT RIGORS NO FEVER NO C/O ABDOMINAL OR PELVIC PAIN NO VAGINAL BLEEDING - Current Medication List Current Medications: Active Medications Acetaminophen (Tylenol -) 650 mg PO Q6H PRN PRN Reason: FEVER Albumin Human (Albumin Human 25%) 25 gm IVPB Q6H [facility] Stop: 03/11/20 20:31 Apixaban (Eliquis -) 2.5 mg PO BID [facility] Last Admin: 03/11/20 11:10 Dose: 2.5 mg Documented by: Artificial Tears (Artificial Tears) 1 drop OU BID PRN PRN Reason: DRY EYES Docusate Sodium (Colace -) 100 mg PO BID PRN PRN Reason: CONSTIPATION Last Admin: 03/07/20 09:28 Dose: 100 mg Documented by: Furosemide (Lasix Injection -) 40 mg IVPUSH BID@0600,1400 [facility] Last Admin: 03/11/20 11:12 Dose: 40 mg Documented by: Piperacillin Sod/Tazobactam (Sod 2.25 gm/ Dextrose) 50 mls @ 100 mls/hr IVPB Q8H-IV [facility]; Protocol Last Admin: 03/11/20 11:05 Dose: 100 mls/hr Documented by: Lactulose (Cephulac (Oral Use)) 20 gm PO TID [facility] Last Admin: 03/11/20 05:22 Dose: 20 gm Documented by: Metoprolol Succinate (Toprol Xl -) 12.5 mg PO DAILY [facility] Last Admin: 03/11/20 11:09 Dose: Not Given Documented by: Rifaximin (Xifaxan -) 550 mg PO BID [facility] Last Admin: 03/11/20 11:09 Dose: 550 mg Documented by: Spironolactone (Aldactone -) 50 mg PO BID [facility] Last Admin: 03/11/20 11:08 Dose: 50 mg Documented by: Tramadol HCl (Ultram -) 50 mg PO Q8H PRN PRN Reason: PAIN LEVEL 6-10 - Objective Vital Signs: Vital Signs Temperature 98.4 F 03/11/20 05:32 Pulse Rate 78 03/11/20 05:32 Respiratory Rate 20 03/11/20 05:32 Blood Pressure 89/47 L 03/11/20 05:32 O2 Sat by Pulse Oximetry (%) 99 03/11/20 05:32 Constitutional: Yes: Obese Cardiovascular: Yes: Regular Rate and Rhythm, S1, S2 Respiratory: Yes: Diminished Gastrointestinal: Yes: Normal Bowel Sounds, Soft. No: Tenderness Labs: CBC, BMP 03/10/20 21:03 03/11/20 07:00 INR, PTT INR 2.24 (0.83-1.09) H 03/10/20 21:03 Assessment/Plan GRAM POS SISI BACTEREMIA ? SOURCE AWAIT IDENTIFICATION REPEAT BC WILL EMPIRICALLY COVER FOR LISTERIA D/C ZOSYN UNASYN/ VANCOMYCIN REPEAT BC ECHO
[2020-03-11] MEDS ORDERED: AMPICILLIN NA/SULBACTAM NA 1.5 GM in SODIUM CHLORIDE 100 ML IVPB SCH (14:45)
[2020-03-11] MEDS: ALBUMIN HUMAN 25% 100 ML VIAL IVPB SCH ×2 (15:51→21:03)
--- NOTE | 2020-03-11 16:47 | PN.GI ---
GI Progress Note Subjective: GI NOte: Vaginal bleeding persists but Hb stable. NO rectal bleeding. Has lost 15 lbs since admission and leg edema is much improved. - Objective Vital Signs: Vital Signs Temperature 98.4 F 03/11/20 14:43 Pulse Rate 70 03/11/20 14:43 Respiratory Rate 03/11/20 14:43 Blood Pressure 96/52 L 03/11/20 14:43 O2 Sat by Pulse Oximetry (%) 100 03/11/20 14:43 Selected Entries 03/02/20 03/08/20 03/10/20 12:38 08:55 06:00 Weight 230 lb 215 lb 8 oz 213 lb Laboratory Tests 02/19/20 03/10/20 03/10/20 05:56 12:00 21:03 Hgb 9.2 L 9.1 L Retic Count 2.71 H Constitutional: Calm ...Auscultate: Yes: Normoactive Bowel Sounds ...Palpate: Yes: Soft, Other (nontender) Labs: CBC, BMP 03/10/20 21:03 03/11/20 07:00 INR, PTT INR 2.24 (0.83-1.09) H 03/10/20 21:03 Assessment/Plan Impression: - Vaginal, not rectal bleeding - Cirrhosis secondary to KING with hepatic encephalopathy, thrombocytopenia, portal vein thrombosis and ascites that is proving to be refractory to oral diuretics ( Maya tells me that no food is brought into the NH by family or friends) in the setting of CKD and risk of lapsing onto hepatorenal syndrome Plan: - Serial CBCs & LFTs - Await [facility] ascp consultant evaluation - Continue diuretic regimen, lactulose and xifaxan Problem List - Problems (1) Vaginal bleeding Code(s): N93.9 - ABNORMAL UTERINE AND VAGINAL BLEEDING, UNSPECIFIED (2) 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 steatohepatitis) Code(s): K75.81 - NONALCOHOLIC STEATOHEPATITIS (KING); K74.60 - UNSPECIFIED CIRRHOSIS OF LIVER (3) Portal vein thrombosis Code(s): I81 - PORTAL VEIN THROMBOSIS (4) Thrombocytopenia Code(s): D69.6 - THROMBOCYTOPENIA, UNSPECIFIED (5) Hepatic encephalopathy Code(s): K72.90 - HEPATIC FAILURE, UNSPECIFIED WITHOUT COMA (6) Edema Code(s): R60.9 - EDEMA, UNSPECIFIED (7) CKD (chronic kidney disease) Code(s): N18.9 - CHRONIC KIDNEY DISEASE, UNSPECIFIED (8) Cirrhosis of liver with ascites Code(s): K74.60 - UNSPECIFIED CIRRHOSIS OF LIVER; R18.8 - OTHER ASCITES (9) Edema of abdominal wall Code(s): R60.0 - LOCALIZED EDEMA (10) Paroxysmal atrial fibrillation with rapid ventricular response Code(s): I48.0 - PAROXYSMAL ATRIAL FIBRILLATION
[2020-03-11] MEDS ORDERED: SODIUM CHLORIDE 100 ML IVPB ONE (17:07)
[2020-03-11] MEDS ORDERED: AMPICILLIN NA/SULBACTAM NA 1.5 GM VIAL ONE (17:07)
[2020-03-11] MEDS: AMPICILLIN NA/SULBACTAM NA 1.5 GM in SODIUM CHLORIDE 100 ML IVPB SCH ×2 (17:10→17:12)
[2020-03-12] MEDS ORDERED: SODIUM CHLORIDE 100 ML IVPB ONE ×4 (00:34→20:07)
[2020-03-12] MEDS ORDERED: AMPICILLIN NA/SULBACTAM NA 1.5 GM VIAL ONE ×4 (00:34→20:07)
[2020-03-12] MEDS: AMPICILLIN NA/SULBACTAM NA 1.5 GM in SODIUM CHLORIDE 100 ML IVPB SCH ×3 (01:00→19:45)
[2020-03-12] MEDS: FUROSEMIDE 40 MG/4 ML INJECTABLE VIAL IVPUSH SCH ×2 (06:06→15:28)
[2020-03-12] MEDS: LACTULOSE 20 GM/30 ML UDC (FOR ORAL USE ONLY) PO SCH ×4 (06:06→21:15)
[2020-03-12] MEDS: APIXABAN 2.5 MG TABLET PO SCH (09:07)
--- NOTE | 2020-03-12 10:07 | PN ---
Progress Note, Physician Chief Complaint: Ascites Cryptogenic cirrhosis CKD History of Present Illness: NAD CXR done- negative BC + GNR C/O vaginal bleeding. Transvaginal US reviewed- with complex fluid- consistent with bleeding ER NURSE consult pending Eliquis was given last evening as pt was holding H/H + bleeding through pure wick urinary cath Hold eliquis CA 125 elevated - Current Medication List Current Medications: Active Medications Acetaminophen (Tylenol -) 650 mg PO Q6H PRN PRN Reason: FEVER Apixaban (Eliquis -) 2.5 mg PO BID [facility] Last Admin: 03/12/20 09:07 Dose: Not Given Documented by: Artificial Tears (Artificial Tears) 1 drop OU BID PRN PRN Reason: DRY EYES Docusate Sodium (Colace -) 100 mg PO BID PRN PRN Reason: CONSTIPATION Last Admin: 03/07/20 09:28 Dose: 100 mg Documented by: Furosemide (Lasix Injection -) 40 mg IVPUSH BID@0600,1400 [facility] Last Admin: 03/12/20 06:06 Dose: 40 mg Documented by: Ampicillin Sodium/Sulbactam (Sodium 1.5 gm/ Sodium Chloride) 100 mls @ 200 mls/hr IVPB Q8H-IV [facility] Last Admin: 03/12/20 01:00 Dose: 200 mls/hr Documented by: Lactulose (Cephulac (Oral Use)) 20 gm PO TID [facility] Last Admin: 03/12/20 06:06 Dose: 20 gm Documented by: Metoprolol Succinate (Toprol Xl -) 12.5 mg PO DAILY [facility] Last Admin: 03/11/20 11:09 Dose: Not Given Documented by: Rifaximin (Xifaxan -) 550 mg PO BID [facility] Last Admin: 03/11/20 21:07 Dose: 550 mg Documented by: Spironolactone (Aldactone -) 50 mg PO BID [facility] Last Admin: 03/11/20 21:02 Dose: 50 mg Documented by: Tramadol HCl (Ultram -) 50 mg PO Q8H PRN PRN Reason: PAIN LEVEL 6-10 - Objective Vital Signs: Vital Signs Temperature 98.6 F 03/12/20 05:58 Pulse Rate 76 03/12/20 05:58 Respiratory Rate 20 03/12/20 09:00 Blood Pressure 102/61 03/12/20 05:58 O2 Sat by Pulse Oximetry (%) 98 03/12/20 09:00 Constitutional: Yes: Well Nourished, No Distress, Calm Cardiovascular: Yes: Regular Rate and Rhythm Respiratory: Yes: Regular, CTA Bilaterally Gastrointestinal: Yes: Normal Bowel Sounds, Soft, Abdomen, Obese, Ascites (RLQ) Genitourinary: Yes: Incontinence Musculoskeletal: Yes: Muscle Weakness Extremities: Yes: WNL Edema: Yes Edema: LLE: 2+, RLE: 2+ Peripheral Pulses WNL: Yes Neurological: Yes: Alert, Oriented Psychiatric: Yes: Alert, Oriented Labs: CBC, BMP 03/10/20 21:03 03/11/20 07:00 INR, PTT INR 2.24 (0.83-1.09) H 03/10/20 21:03 Problem List - Problems (1) Afib Assessment/Plan: -Chronic, rate controlled -Hold Eliquis Problems reviewed: Yes Code(s): I48.91 - UNSPECIFIED ATRIAL FIBRILLATION (2) Anemia Assessment/Plan: -acute vs Chronic -2/2 to chronic liver disease -+ Vaginal bleed -ER NURSE consult pending -CA 125 elevated -Monitor trend -Transfuse only if Hg<7.0 to avoid fluid overload Problems reviewed: Yes Code(s): D64.9 - ANEMIA, UNSPECIFIED (3) CKD (chronic kidney disease) Assessment/Plan: -nephrology consult -Continue furosemide 40 mg IVP BID -Continue Spironolactone 50 mg po daily Problems reviewed: Yes Code(s): N18.9 - CHRONIC KIDNEY DISEASE, UNSPECIFIED (4) Cryptogenic cirrhosis Assessment/Plan: -GI consult -Continue lactulose + rifaxamin Problems reviewed: Yes Code(s): K74.69 - OTHER CIRRHOSIS OF LIVER (5) Edema of abdominal wall Assessment/Plan: -Continue Furosemide 40 mg IV BID -Continue spironolactone Problems reviewed: Yes Code(s): R60.0 - LOCALIZED EDEMA (6) Lactic acidosis Assessment/Plan: -chronic -Repeat CXR-negative -Labs/BC/UC pending Problems reviewed: Yes Code(s): E87.2 - ACIDOSIS (7) Vaginal bleeding Assessment/Plan: -Transvaginal U/S reviewed -ER NURSE consult appreciated -CA125 elevated -If pt continues to bleed despite holding eliquis, would need D&C or hysterosc opy Problems reviewed: Yes Code(s): N93.9 - ABNORMAL UTERINE AND VAGINAL BLEEDING, UNSPECIFIED (8) Bacteremia Problems reviewed: Yes Code(s): R78.81 - BACTEREMIA Assessment/Plan See problem list
--- NOTE | 2020-03-12 10:10 | PN ---
Progress Note, Physician History of Present Illness: pulmonary alert,comfortable,-c/o sob,-cp - Current Medication List Current Medications: Active Medications Acetaminophen (Tylenol -) 650 mg PO Q6H PRN PRN Reason: FEVER Apixaban (Eliquis -) 2.5 mg PO BID [facility] Last Admin: 03/12/20 09:07 Dose: Not Given Documented by: Artificial Tears (Artificial Tears) 1 drop OU BID PRN PRN Reason: DRY EYES Docusate Sodium (Colace -) 100 mg PO BID PRN PRN Reason: CONSTIPATION Last Admin: 03/07/20 09:28 Dose: 100 mg Documented by: Furosemide (Lasix Injection -) 40 mg IVPUSH BID@0600,1400 [facility] Last Admin: 03/12/20 06:06 Dose: 40 mg Documented by: Ampicillin Sodium/Sulbactam (Sodium 1.5 gm/ Sodium Chloride) 100 mls @ 200 mls/hr IVPB Q8H-IV [facility] Last Admin: 03/12/20 01:00 Dose: 200 mls/hr Documented by: Lactulose (Cephulac (Oral Use)) 20 gm PO TID [facility] Last Admin: 03/12/20 06:06 Dose: 20 gm Documented by: Metoprolol Succinate (Toprol Xl -) 12.5 mg PO DAILY [facility] Last Admin: 03/11/20 11:09 Dose: Not Given Documented by: Rifaximin (Xifaxan -) 550 mg PO BID [facility] Last Admin: 03/11/20 21:07 Dose: 550 mg Documented by: Spironolactone (Aldactone -) 50 mg PO BID [facility] Last Admin: 03/11/20 21:02 Dose: 50 mg Documented by: Tramadol HCl (Ultram -) 50 mg PO Q8H PRN PRN Reason: PAIN LEVEL 6-10 - Objective Vital Signs: Vital Signs Temperature 98.6 F 03/12/20 05:58 Pulse Rate 76 03/12/20 05:58 Respiratory Rate 20 03/12/20 09:00 Blood Pressure 102/61 03/12/20 05:58 O2 Sat by Pulse Oximetry (%) 98 03/12/20 09:00 Constitutional: Yes: Well Nourished, Calm Eyes: Yes: WNL HENT: Yes: WNL Neck: Yes: WNL Cardiovascular: Yes: Pulse Irregular, S1, S2 Respiratory: Yes: Diminished Gastrointestinal: Yes: Normal Bowel Sounds, Soft Extremities: Yes: WNL Edema: No Assessment/Plan Problem List - Problems (1) Afib Code(s): I48.91 - UNSPECIFIED ATRIAL FIBRILLATION (2) Anemia Code(s): D64.9 - ANEMIA, UNSPECIFIED (3) Ascites Code(s): R18.8 - OTHER ASCITES Qualifiers: Ascites type: other type Qualified Code(s): R18.8 - Other ascites (4) CKD (chronic kidney disease) Code(s): N18.9 - CHRONIC KIDNEY DISEASE, UNSPECIFIED (5) Chronic liver disease and cirrhosis Code(s): K74.60 - UNSPECIFIED CIRRHOSIS OF LIVER; K76.9 - LIVER DISEASE, UNSPECIFIED (6) Cirrhosis of liver with ascites Code(s): K74.60 - UNSPECIFIED CIRRHOSIS OF LIVER; R18.8 - OTHER ASCITES (7) Cor pulmonale Code(s): I27.81 - COR PULMONALE (CHRONIC) (8) Cryptogenic cirrhosis Code(s): K74.69 - OTHER CIRRHOSIS OF LIVER (9) Edema Code(s): R60.9 - EDEMA, UNSPECIFIED (10) Edema of abdominal wall Code(s): R60.0 - LOCALIZED EDEMA (11) HTN (hypertension) Code(s): I10 - ESSENTIAL (PRIMARY) HYPERTENSION (12) Hypotension Code(s): I95.9 - HYPOTENSION, UNSPECIFIED (13) 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 Assessment/Plan IMP: SHOOK referable to a restrictive process due to ascites due to Cryptogenic Cirrhosis PLAN: Diuresis Supplemental O2 as needed Strict I+Os No smoking Rifaxamin Lactulose Daily wts DR DOLAN
--- NOTE | 2020-03-12 10:48 | PN ---
Progress Note, Physician History of Present Illness: BLOOD C/S + 4/4 BOTTLES GRAM POS RODS! NOT YET IDENTIFIED AWAKE, ALERT IN BED NO RECURRENT RIGORS NO FEVER REPORTS + VAGINAL BLEEDING NO C/O ABDOMINAL OR PELVIC PAIN - Current Medication List Current Medications: Active Medications Acetaminophen (Tylenol -) 650 mg PO Q6H PRN PRN Reason: FEVER Apixaban (Eliquis -) 2.5 mg PO BID [facility] Last Admin: 03/12/20 09:07 Dose: Not Given Documented by: Artificial Tears (Artificial Tears) 1 drop OU BID PRN PRN Reason: DRY EYES Docusate Sodium (Colace -) 100 mg PO BID PRN PRN Reason: CONSTIPATION Last Admin: 03/07/20 09:28 Dose: 100 mg Documented by: Furosemide (Lasix Injection -) 40 mg IVPUSH BID@0600,1400 [facility] Last Admin: 03/12/20 06:06 Dose: 40 mg Documented by: Ampicillin Sodium/Sulbactam (Sodium 1.5 gm/ Sodium Chloride) 100 mls @ 200 mls/hr IVPB Q8H-IV [facility] Last Admin: 03/12/20 01:00 Dose: 200 mls/hr Documented by: Lactulose (Cephulac (Oral Use)) 20 gm PO TID [facility] Last Admin: 03/12/20 06:06 Dose: 20 gm Documented by: Metoprolol Succinate (Toprol Xl -) 12.5 mg PO DAILY [facility] Last Admin: 03/11/20 11:09 Dose: Not Given Documented by: Rifaximin (Xifaxan -) 550 mg PO BID [facility] Last Admin: 03/11/20 21:07 Dose: 550 mg Documented by: Spironolactone (Aldactone -) 50 mg PO BID [facility] Last Admin: 03/11/20 21:02 Dose: 50 mg Documented by: Tramadol HCl (Ultram -) 50 mg PO Q8H PRN PRN Reason: PAIN LEVEL 6-10 - Objective Vital Signs: Vital Signs Temperature 98.6 F 03/12/20 05:58 Pulse Rate 76 03/12/20 05:58 Respiratory Rate 20 03/12/20 09:00 Blood Pressure 102/61 03/12/20 05:58 O2 Sat by Pulse Oximetry (%) 98 03/12/20 09:00 Constitutional: Yes: No Distress Eyes: Yes: Conjunctiva Clear Cardiovascular: Yes: Regular Rate and Rhythm, S1, S2 Respiratory: Yes: Regular Gastrointestinal: Yes: Normal Bowel Sounds. No: Tenderness Edema: Yes Labs: CBC, BMP 03/10/20 21:03 03/11/20 07:00 INR, PTT INR 2.24 (0.83-1.09) H 03/10/20 21:03 Assessment/Plan GRAM POS SISI BACTEREMIA ? SOURCE AWAIT IDENTIFICATION REPEAT BC PENDING WILL EMPIRICALLY COVER FOR LISTERIA UNASYN/ VANCOMYCIN VANCOMYCIN LEVEL ECHO
[2020-03-12 10:51] LABS: BASO % 0.6 % (0-2.0); EOS % 3.7 % (0-4.5); HEMATOCRIT 26.9 % (32.4-45.2); HEMOGLOBIN 8.7 GM/dL (10.7-15.3); LYMPH % 15.2 % (8-40); MCH 30.8 pg (25.7-33.7); MCHC 32.2 g/dl (32.0-36.0); MEAN CELL VOLUME 95.7 fl (80-96); MEAN PLT VOLUME 10.9 fl (7.5-11.1); MONO % 13.7 % (3.8-10.2); NEUT % 66.8 % (42.8-82.8); PLATELET COUNT 49 K/MM3 (134-434); RBC 2.81 M/mm3 (3.60-5.2); RDW 18.5 % (11.6-15.6); WHITE BLOOD COUNT 4.6 K/mm3 (4.0-10.0)
[2020-03-12] MEDS: SPIRONOLACTONE 25 MG TABLET PO SCH ×3 (10:54→21:14)
[2020-03-12] MEDS: RIFAXIMIN 550 MG TABLET (UD) PO SCH ×2 (10:54→21:15)
[2020-03-12] MEDS: metoPROLOL SUCCINATE 25 MG TAB.SR.24H (FP) PO SCH ×2 (10:54→11:08)
[2020-03-12 10:58] LABS: INR 2.37 (0.83-1.09); PROTHROMBIN TIME (PATIENT) 28.2 SEC (9.7-13.0)
[2020-03-12 11:24] LABS: ALBUMIN 2.4 g/dl (3.4-5.0); BILIRUBIN,TOTAL 1.8 mg/dL (0.2-1); BLOOD UREA NITROGEN 16.9 mg/dL (7-18); CALCIUM 8.1 mg/dL (8.5-10.1); CREATININE 1.9 mg/dL (0.55-1.3); POTASSIUM 3.5 mmol/L (3.5-5.1); TOT PROT 6.8 g/dl (6.4-8.2)
--- NOTE | 2020-03-12 12:44 | PN ---
Progress Note, Physician History of Present Illness: Pt seen and examined at bedside. She is awake and alert. She denies shortness of breath. - Current Medication List Current Medications: Active Medications Acetaminophen (Tylenol -) 650 mg PO Q6H PRN PRN Reason: FEVER Apixaban (Eliquis -) 2.5 mg PO BID COUNTS INCLUDE 234 BEDS AT THE [facility] Last Admin: 03/12/20 09:07 Dose: Not Given Documented by: Artificial Tears (Artificial Tears) 1 drop OU BID PRN PRN Reason: DRY EYES Docusate Sodium (Colace -) 100 mg PO BID PRN PRN Reason: CONSTIPATION Last Admin: 03/07/20 09:28 Dose: 100 mg Documented by: Furosemide (Lasix Injection -) 40 mg IVPUSH BID@0600,1400 COUNTS INCLUDE 234 BEDS AT THE [facility] Last Admin: 03/12/20 06:06 Dose: 40 mg Documented by: Ampicillin Sodium/Sulbactam (Sodium 1.5 gm/ Sodium Chloride) 100 mls @ 200 mls/hr IVPB Q8H-IV COUNTS INCLUDE 234 BEDS AT THE [facility] Last Admin: 03/12/20 10:54 Dose: 200 mls/hr Documented by: Lactulose (Cephulac (Oral Use)) 20 gm PO TID COUNTS INCLUDE 234 BEDS AT THE [facility] Last Admin: 03/12/20 06:06 Dose: 20 gm Documented by: Metoprolol Succinate (Toprol Xl -) 12.5 mg PO DAILY COUNTS INCLUDE 234 BEDS AT THE [facility] Last Admin: 03/12/20 11:08 Dose: Not Given Documented by: Rifaximin (Xifaxan -) 550 mg PO BID COUNTS INCLUDE 234 BEDS AT THE [facility] Last Admin: 03/12/20 10:54 Dose: 550 mg Documented by: Spironolactone (Aldactone -) 50 mg PO BID COUNTS INCLUDE 234 BEDS AT THE [facility] Last Admin: 03/12/20 11:08 Dose: 50 mg Documented by: Tramadol HCl (Ultram -) 50 mg PO Q8H PRN PRN Reason: PAIN LEVEL 6-10 - Objective Vital Signs: Vital Signs Temperature 98 F 03/12/20 10:00 Pulse Rate 86 03/12/20 10:00 Respiratory Rate 20 03/12/20 10:00 Blood Pressure 98/58 L 03/12/20 10:00 O2 Sat by Pulse Oximetry (%) 98 03/12/20 10:00 Constitutional: Yes: Calm Eyes: Yes: Conjunctiva Clear HENT: Yes: Atraumatic Neck: Yes: Supple Cardiovascular: Yes: S1, S2 Respiratory: Yes: CTA Bilaterally Gastrointestinal: Yes: Soft Genitourinary: Yes: WNL Edema: Yes Edema: LLE: 2+, RLE: 2+ Integumentary: Yes: WNL Neurological: Yes: Oriented Psychiatric: Yes: Oriented Labs: CBC, BMP 03/12/20 10:10 03/12/20 10:10 INR, PTT INR 2.37 (0.83-1.09) H 03/12/20 10:10 Problem List - Problems (1) CHF (congestive heart failure) Code(s): I50.9 - HEART FAILURE, UNSPECIFIED Qualifiers: Heart failure type: unspecified Heart failure chronicity: unspecified Qualified Code(s): I50.9 - Heart failure, unspecified (2) Lactic acidosis Code(s): E87.2 - ACIDOSIS Assessment/Plan Current Medications Generic Name Dose Route Start Last Admin Trade Name Freq PRN Reason Stop Dose Admin Acetaminophen 650 mg 03/04/20 20:04 Tylenol - PO Q6H PRN FEVER Apixaban 2.5 mg 03/04/20 22:00 03/12/20 09:07 Eliquis - PO Not Given BID TAMMY Artificial Tears 1 drop 03/04/20 20:04 Artificial Tears OU BID PRN DRY EYES Docusate Sodium 100 mg 03/04/20 20:04 03/07/20 09:28 Colace - PO 100 mg BID PRN Administration CONSTIPATION Furosemide 40 mg 03/05/20 06:00 03/12/20 06:06 Lasix Injection - IVPUSH 40 mg BID@0600,1400 TAMMY Administration Ampicillin Sodium/Sulbactam 100 mls @ 200 mls/hr 03/11/20 15:15 03/12/20 10:54 Sodium 1.5 gm/ Sodium Chloride IVPB 200 mls/hr Q8H-IV TAMMY Administration Lactulose 20 gm 03/04/20 22:00 03/12/20 06:06 Cephulac (Oral Use) PO 20 gm TID TAMMY Administration Metoprolol Succinate 12.5 mg 03/06/20 11:03 03/12/20 11:08 Toprol Xl - PO Not Given DAILY TAMMY Rifaximin 550 mg 03/04/20 22:00 03/12/20 10:54 Xifaxan - PO 550 mg BID TAMMY Administration Spironolactone 50 mg 03/06/20 22:00 03/12/20 11:08 Aldactone - PO 50 mg BID TAMMY Administration Tramadol HCl 50 mg 03/11/20 10:35 Ultram - PO Q8H PRN PAIN LEVEL 6-10 Impression 1. CKD 2. ascites 3. liver cirrhosis 4. ileus 5. microscopic hematuria 6. fluid overload 7. a-fib 8. hyperkalemia Plan - cont to monitor volume status - edema slowly improving - cont lasix - cont aldactone - still not euvolemic - daily weights
--- NOTE | 2020-03-12 15:40 | ECHO ---
Version: 1 Name: FRANSISCO BURDEN Exam: Adult Echocardiogram Study Date: 03/12/2020, 1:36 PM Age: 74 Years MMode/2D Measurements & Calculations IVSd: 1.08 cm LVIDs: 2.6 cm LVIDd: 4.4 cm LVPWd: 1.40 cm LAV (MOD-bp): 92.0 ml LVOT diam: 1.56 cm Ao root diam: 2.9 cm LA dimension: 3.8 cm Doppler Measurements & Calculations MV E max valente: 102.7 cm/sec MVA(VTI): 1.98 cm MV A max valente: 123.4 cm/sec MV V2 max: 155.5 cm/sec MV mean P.8 mmHg MV max P.7 mmHg MV E/A: 0.83 Med E/e': 21.8 Lat E/e': 15.6 Med Peak E' Valente: 4.7 cm/sec Lat Peak E' Valente: 6.6 cm/sec MR max P.5 mmHg Ao max P.4 mmHg DAVID(I,D): 1.91 cm Ao mean P.0 mmHg LV V1 mean: 162.0 cm/sec Ao V2 max: 219.9 cm/sec LV V1 mean P.0 mmHg TR max valente: 275.5 cm/sec TR max P.4 mmHg Procedure A two-dimensional transthoracic echocardiogram with color flow and Doppler was performed. The patien t was in normal sinus rhythm during the exam. Left Ventricle Left ventricular systolic function is normal. Ejection Fraction = 70%. E/A reversal consistent with but not diagnostic of poor LV compliance. Right Ventricle The right ventricle is normal in size and function. Atria The left atrium is moderately dilated. Right atrial size is normal. Mitral Valve There is severe mitral annular calcification. Functional mitral valve stenosis secondary to MAC. The re is mild mitral regurgitation. Tricuspid Valve The tricuspid valve is not well visualized, but is grossly normal. There is trace tricuspid regurgit ation. Right ventricular systolic pressure is elevated at 30-40mmHg. Aortic Valve Fibrocalcific aortic valve. Mild valvular aortic stenosis. The calculated aortic valve area using th e continuity equation is 1.71 cm2. No aortic regurgitation is present. Pulmonic Valve The pulmonic valve is not well seen, but is grossly normal. There is no pulmonic valvular regurgitat ion. Great Vessels The aortic root is normal size. Mildly dilated ascending aorta. Pericardium/Pleura There is no pericardial effusion. Summary Statements Left ventricular systolic function is normal. E/A reversal consistent with but not diagnostic of poor LV compliance The left atrium is moderately dilated. There is mild mitral regurgitation. There is trace tricuspid regurgitation. Fibrocalcific aortic valve. Mild valvular aortic stenosis. Mildly dilated ascending aorta. MD Grabiel Serna 03/12/2020, 3:40 PM Ordering Physician: Kulwinder Orona Referring Physician: KULWINDER ORONA Performed By: Neli Sweet
--- NOTE | 2020-03-12 22:31 | PN.HO ---
Progress Note (short form) - Note Progress Note: PAtient seen zaria lara Feels OK AFVSS Cor: RSR, No murmurs, No gallops Lungs: Clear to P&A Abd: Soft, Normal bowel sounds, No organomegaly Ext:No significant edema LAbs/Meds reviewed A/P Pt. is a 74 y.o. F w/ PMHx. of Cirrhosis(KING w/ ascites and Hx. of HE), HFpEF, Afib(on reduced? dose Eliquis), CKD (Stage 3), Venous insufficiency, HTN, Anemia, and Thrombocytopenia presents for increased abdominal distention, Rt. flank pain. We have been called to assess Pt. for anemia. normocytic/normochromic anemia of chronic kidney diseased due to CKD/ cirrhosis iron studies suggestive of chronic disease Reverse AG ratio : ? liver disease. 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 ascites/calcified fibroids/cirrhosis/splenomegaly fluid cytology 01/29/20 --negative for malignant cells Thrombocytopenia--- due to cirrhosis Elevated INR--on eliquis +/- cpmponent of vit. k deficiency will dose vit. K x 3days
[2020-03-13] MEDS ORDERED: AMPICILLIN NA/SULBACTAM NA 1.5 GM VIAL ONE ×3 (00:51→18:01)
[2020-03-13] MEDS ORDERED: SODIUM CHLORIDE 100 ML IVPB ONE ×3 (00:51→18:01)
[2020-03-13] MEDS: AMPICILLIN NA/SULBACTAM NA 1.5 GM in SODIUM CHLORIDE 100 ML IVPB SCH ×3 (01:00→18:04)
[2020-03-13] MEDS: LACTULOSE 20 GM/30 ML UDC (FOR ORAL USE ONLY) PO SCH ×3 (05:29→21:41)
[2020-03-13] MEDS: FUROSEMIDE 40 MG/4 ML INJECTABLE VIAL IVPUSH SCH ×2 (05:30→13:36)
[2020-03-13 07:32] LABS: BASO % 0.7 % (0-2.0); EOS % 5.7 % (0-4.5); HEMATOCRIT 24.8 % (32.4-45.2); HEMOGLOBIN 8.1 GM/dL (10.7-15.3); INR 2.09 (0.83-1.09); LYMPH % 18.5 % (8-40); MCH 30.6 pg (25.7-33.7); MCHC 32.5 g/dl (32.0-36.0); MEAN CELL VOLUME 94.2 fl (80-96); MEAN PLT VOLUME 10.2 fl (7.5-11.1); MONO % 13.2 % (3.8-10.2); NEUT % 61.9 % (42.8-82.8); PLATELET COUNT 51 K/MM3 (134-434); PROTHROMBIN TIME (PATIENT) 24.9 SEC (9.7-13.0); RBC 2.64 M/mm3 (3.60-5.2); RDW 18.4 % (11.6-15.6); WHITE BLOOD COUNT 4.7 K/mm3 (4.0-10.0)
[2020-03-13 07:57] LABS: BILIRUBIN,TOTAL 2.1 mg/dL (0.2-1); BLOOD UREA NITROGEN 16.3 mg/dL (7-18); CALCIUM 7.8 mg/dL (8.5-10.1); CREATININE 1.6 mg/dL (0.55-1.3); POTASSIUM 4.2 mmol/L (3.5-5.1)
[2020-03-13] MEDS: metoPROLOL SUCCINATE 25 MG TAB.SR.24H (FP) PO SCH (09:48)
[2020-03-13] MEDS: SPIRONOLACTONE 25 MG TABLET PO SCH ×2 (09:49→21:40)
[2020-03-13] MEDS: RIFAXIMIN 550 MG TABLET (UD) PO SCH ×2 (09:49→21:41)
[2020-03-13] MEDS: PHYTONADIONE 10 MG/1 ML AMP SQ SCH (09:50)
--- NOTE | 2020-03-13 11:03 | PN ---
Physical Exam: SUBJECTIVE: Patient seen and examined. Pt, denies any acute events. Pt. states she is worried about her vaginal bleeding and about a possible D&C. OBJECTIVE: Vital Signs Period Temp Pulse Resp BP Sys/Patel Pulse Ox Last 24 Hr 98 F-98.8 F 73-78 18-20 90-99/44-61 96-99 GENERAL: Awake, alert, and fully oriented, in no acute distress. HEAD: Normal with no signs of trauma. EYES: Extraocular movements intact, sclera anicteric, conjunctiva clear. EARS, NOSE, THROAT: Moist mucous membranes. NECK: No lymphadenopathy, JVD, or masses. LUNGS: Breath sounds equal anteriorly, clear to auscultation bilaterally. No wheezes, and no crackles. HEART: Regular rate and rhythm, normal S1 and S2 with systolic murmur ABDOMEN: Soft, improved tenderness in abdomen in RUQ, normoactive bowel sounds, anasarcic skin changes, dull to percussion MUSCULOSKELETAL: Decreased ROM of RUE UPPER EXTREMITIES: 2+ radial pulses, warm, well-perfused. LOWER EXTREMITIES: 2+ dorsal pedal pulses, warm, well-perfused. No calf tenderness. No peripheral edema. NEUROLOGICAL: No focal deficits. Normal speech. PSYCHIATRIC: Cooperative. Good eye contact. Appropriate mood and affect. SKIN: Warm, dry, Laboratory Results - last 24 hr 03/12/20 03/12/20 03/13/20 10:10 10:10 06:45 WBC 4.7 RBC 2.64 L Hgb 8.1 L Hct 24.8 L MCV 94.2 MCH 30.6 MCHC 32.5 RDW 18.4 H Plt Count 51 L MPV 10.2 Absolute Neuts (auto) 2.9 Neutrophils % 61.9 Lymphocytes % 18.5 D Monocytes % 13.2 H Eosinophils % 5.7 H Basophils % 0.7 Nucleated RBC % 0 PT with INR INR Sodium 136 Potassium 3.5 Chloride 98 Carbon Dioxide 31 Anion Gap 7 L BUN 16.9 Creatinine 1.9 H Est GFR (CKD-EPI)AfAm 29.17 Est GFR (CKD-EPI)NonAf 25.17 Random Glucose 129 H Calcium 8.1 L Total Bilirubin 1.8 H AST 42 H ALT 18 Alkaline Phosphatase 105 Total Protein 6.8 Albumin 2.4 L Random Vancomycin 12.2 03/13/20 03/13/20 06:45 06:45 WBC RBC Hgb Hct MCV MCH MCHC RDW Plt Count MPV Absolute Neuts (auto) Neutrophils % Lymphocytes % Monocytes % Eosinophils % Basophils % Nucleated RBC % PT with INR 24.90 H INR 2.09 H Sodium 138 Potassium 4.2 Chloride 100 Carbon Dioxide 31 Anion Gap 7 L BUN 16.3 Creatinine 1.6 H Est GFR (CKD-EPI)AfAm 35.90 Est GFR (CKD-EPI)NonAf 30.98 Random Glucose 89 Calcium 7.8 L Total Bilirubin 2.1 H AST 43 H ALT 14 Alkaline Phosphatase 85 Total Protein 6.0 L Albumin 2.0 L Random Vancomycin Active Medications Generic Name Dose Route Start Last Admin Trade Name Freq PRN Reason Stop Dose Admin Acetaminophen 650 mg 03/04/20 20:04 Tylenol - PO Q6H PRN FEVER Apixaban 2.5 mg 03/04/20 22:00 03/12/20 09:07 Eliquis - PO Not Given BID TAMMY Artificial Tears 1 drop 03/04/20 20:04 Artificial Tears OU BID PRN DRY EYES Docusate Sodium 100 mg 03/04/20 20:04 03/07/20 09:28 Colace - PO 100 mg BID PRN Administration CONSTIPATION Furosemide 40 mg 03/05/20 06:00 03/13/20 05:30 Lasix Injection - IVPUSH 40 mg BID@0600,1400 TAMMY Administration Ampicillin Sodium/Sulbactam 100 mls @ 200 mls/hr 03/11/20 15:15 03/13/20 09:48 Sodium 1.5 gm/ Sodium Chloride IVPB 200 mls/hr Q8H-IV TAMMY Administration Lactulose 20 gm 03/04/20 22:00 03/13/20 05:29 Cephulac (Oral Use) PO 20 gm TID TAMMY Administration Metoprolol Succinate 12.5 mg 03/06/20 11:03 03/13/20 09:48 Toprol Xl - PO Not Given DAILY TAMMY Phytonadione 5 mg 03/13/20 10:00 03/13/20 09:50 Aqua Mephyton Injection - SQ 03/15/20 10:01 5 mg DAILY TAMMY Administration Rifaximin 550 mg 03/04/20 22:00 03/13/20 09:49 Xifaxan - PO 550 mg BID TAMMY Administration Spironolactone 50 mg 03/06/20 22:00 03/13/20 09:49 Aldactone - PO 50 mg BID TAMMY Administration Tramadol HCl 50 mg 03/11/20 10:35 Ultram - PO Q8H PRN PAIN LEVEL 6-10 ASSESSMENT/PLAN: Pt. is a 74 y.o. F w/ PMHx. of Cirrhosis(KING w/ ascites and Hx. of HE), HFpEF, Afib(on reduced? dose Eliquis), CKD (Stage 3), Venous insufficiency, HTN, Anemia, and Throbocytopenia presents for increased abdominal swelling. We have been called to assess Pt. for anemia. #Normocytic Anemia likely from anemia of chronic disease as Pt. has cirrhosis and CKD HgB currently lower than baseline lab studies consistent with anemia of chronic disease GI consult appreciated. Pt. 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 having ongoing vaginal bleeding. Elevated Ca125 may be due to other causes most notably cirrhosis and renal insufficiency. https://www.Rebtel/contents/ouzcipkdb-lme-guevgjh-cancer?search=ca-125&diana rce=search_result&selectedTitle=2~104&usage_type=default&display_rank=2 #Thrombocytopenia likely 2/2 cirrhosis Pt. is at baseline Platelets continue to monitor Transfuse platelets to keep above 50k, in setting of vaginal bleeding. f/u fibrinogen will consider mixing studies if Pt. continues to have ongoing bleeding despite holding Eliquis #DVT Ppx. Hold Eliquis, will need cardiology evaluation for risk/benefit of AC as Pt. having ongoing bleeding, cirrhosis, thrombocytopenia vs. Afib. Visit type - Emergency Visit Emergency Visit: Yes ED Registration Date: 03/02/20 Care time: The patient presented to the Emergency Department on the above date and was hospitalized for further evaluation of their emergent condition. - New Patient This patient is new to me today: No - Critical Care Critical Care patient: No - Discharge Referral Referred to [facility] Med P.C.: No - Medication Review Med list reviewed for High Risk Meds patients 65 and older: Yes ATTENDING PHYSICIAN STATEMENT I saw and evaluated the patient. I reviewed the resident's note and discussed the case with the resident. I agree with the resident's findings and plan as documented. SUBJECTIVE: OBJECTIVE: ASSESSMENT AND PLAN:
--- NOTE | 2020-03-13 11:37 | PN ---
Progress Note, Physician Chief Complaint: Ascites Cryptogenic cirrhosis CKD History of Present Illness: NAD CXR done- negative BC + GNR C/O vaginal bleeding Last Eliquis dose was 03/11/20 @ 2100 Pt was given Vitamin K 5 mg on 03/11/20 and yesterday - Current Medication List Current Medications: Active Medications Acetaminophen (Tylenol -) 650 mg PO Q6H PRN PRN Reason: FEVER Apixaban (Eliquis -) 2.5 mg PO BID REPLACED BY [facility] Last Admin: 03/12/20 09:07 Dose: Not Given Documented by: Artificial Tears (Artificial Tears) 1 drop OU BID PRN PRN Reason: DRY EYES Docusate Sodium (Colace -) 100 mg PO BID PRN PRN Reason: CONSTIPATION Last Admin: 03/07/20 09:28 Dose: 100 mg Documented by: Furosemide (Lasix Injection -) 40 mg IVPUSH BID@0600,1400 REPLACED BY [facility] Last Admin: 03/13/20 05:30 Dose: 40 mg Documented by: Ampicillin Sodium/Sulbactam (Sodium 1.5 gm/ Sodium Chloride) 100 mls @ 200 mls/hr IVPB Q8H-IV REPLACED BY [facility] Last Admin: 03/13/20 09:48 Dose: 200 mls/hr Documented by: Lactulose (Cephulac (Oral Use)) 20 gm PO TID REPLACED BY [facility] Last Admin: 03/13/20 05:29 Dose: 20 gm Documented by: Metoprolol Succinate (Toprol Xl -) 12.5 mg PO DAILY REPLACED BY [facility] Last Admin: 03/13/20 09:48 Dose: Not Given Documented by: Phytonadione (Aqua Mephyton Injection -) 5 mg SQ DAILY REPLACED BY [facility] Stop: 03/15/20 10:01 Last Admin: 03/13/20 09:50 Dose: 5 mg Documented by: Phytonadione (Aqua Mephyton Injection -) 10 mg SQ ONCE ONE Stop: 03/13/20 11:14 Rifaximin (Xifaxan -) 550 mg PO BID REPLACED BY [facility] Last Admin: 03/13/20 09:49 Dose: 550 mg Documented by: Spironolactone (Aldactone -) 50 mg PO BID REPLACED BY [facility] Last Admin: 03/13/20 09:49 Dose: 50 mg Documented by: Tramadol HCl (Ultram -) 50 mg PO Q8H PRN PRN Reason: PAIN LEVEL 6-10 - Objective Vital Signs: Vital Signs Temperature 98 F 03/13/20 10:00 Pulse Rate 74 03/13/20 10:00 Respiratory Rate 18 03/13/20 10:00 Blood Pressure 93/54 L 03/13/20 10:00 O2 Sat by Pulse Oximetry (%) 98 03/13/20 10:00 Constitutional: Yes: Well Nourished, No Distress, Calm, Obese Cardiovascular: Yes: Regular Rate and Rhythm Respiratory: Yes: Regular, CTA Bilaterally Gastrointestinal: Yes: Normal Bowel Sounds, Soft, Abdomen, Obese, Ascites (RLQ) Genitourinary: Yes: WNL, Vaginal Bleeding Musculoskeletal: Yes: WNL Extremities: Yes: WNL Edema: No Peripheral Pulses WNL: Yes Neurological: Yes: Alert, Oriented Psychiatric: Yes: Alert, Oriented Labs: CBC, BMP 03/13/20 06:45 03/13/20 06:45 INR, PTT INR 2.09 (0.83-1.09) H 03/13/20 06:45 Problem List - Problems (1) Afib Assessment/Plan: -Chronic, rate controlled -Hold Eliquis Problems reviewed: Yes Code(s): I48.91 - UNSPECIFIED ATRIAL FIBRILLATION (2) Anemia Assessment/Plan: -acute vs Chronic -2/2 to chronic liver disease -+ Vaginal bleed -SURGERY AIDE consult to re-evaluate -CA 125 elevated -Monitor trend -Transfuse only if Hg<7.0 to avoid fluid overload Problems reviewed: Yes Code(s): D64.9 - ANEMIA, UNSPECIFIED (3) CKD (chronic kidney disease) Assessment/Plan: -nephrology consult -Continue furosemide 40 mg IVP BID -Continue Spironolactone 50 mg po daily Problems reviewed: Yes Code(s): N18.9 - CHRONIC KIDNEY DISEASE, UNSPECIFIED (4) Cryptogenic cirrhosis Assessment/Plan: -GI consult -Continue lactulose + rifaxamin Problems reviewed: Yes Code(s): K74.69 - OTHER CIRRHOSIS OF LIVER (5) Edema of abdominal wall Assessment/Plan: -Continue Furosemide 40 mg IV BID -Continue spironolactone Problems reviewed: Yes Code(s): R60.0 - LOCALIZED EDEMA (6) Lactic acidosis Assessment/Plan: -chronic -Repeat CXR-negative -Labs/BC/UC pending Problems reviewed: Yes Code(s): E87.2 - ACIDOSIS (7) Vaginal bleeding Assessment/Plan: -Transvaginal U/S reviewed -SURGERY AIDE consult appreciated, they will re-evaluate -CA125 elevated -If pt continues to bleed despite holding eliquis, would need D&C or hysteroscopy -Vitamin K 5 mg po daily, given additional 10 mg SQ today Problems reviewed: Yes Code(s): N93.9 - ABNORMAL UTERINE AND VAGINAL BLEEDING, UNSPECIFIED (8) Bacteremia Assessment/Plan: -ID consult -IV abx -Afebrile Problems reviewed: Yes Code(s): R78.81 - BACTEREMIA Assessment/Plan See problem list
[2020-03-13] MEDS ORDERED: PHYTONADIONE 10 MG/1 ML AMP SQ ONE (12:00)
--- NOTE | 2020-03-13 12:59 | PN ---
Progress Note (short form) - Note Progress Note: Feels a little better today but still with vaginal bleeding. Breathing feels overall better. Intake & Output 03/10/20 03/11/20 03/12/20 03/13/20 23:59 23:59 23:59 23:59 Intake Total 400 1580 916 200 Balance 400 1580 916 200 Weight 213 lb Last Vital Signs Temp Pulse Resp BP Pulse Ox 98 F 74 18 93/54 L 98 03/13/20 10:00 03/13/20 10:00 03/13/20 10:00 03/13/20 10:00 03/13/20 10:00 Active Medications Acetaminophen (Tylenol -) 650 mg PO Q6H PRN PRN Reason: FEVER Artificial Tears (Artificial Tears) 1 drop OU BID PRN PRN Reason: DRY EYES Docusate Sodium (Colace -) 100 mg PO BID PRN PRN Reason: CONSTIPATION Last Admin: 03/07/20 09:28 Dose: 100 mg Documented by: Furosemide (Lasix Injection -) 40 mg IVPUSH BID@0600,1400 [facility] Last Admin: 03/13/20 05:30 Dose: 40 mg Documented by: Ampicillin Sodium/Sulbactam (Sodium 1.5 gm/ Sodium Chloride) 100 mls @ 200 mls/hr IVPB Q8H-IV [facility] Last Admin: 03/13/20 09:48 Dose: 200 mls/hr Documented by: Lactulose (Cephulac (Oral Use)) 20 gm PO TID [facility] Last Admin: 03/13/20 05:29 Dose: 20 gm Documented by: Metoprolol Succinate (Toprol Xl -) 12.5 mg PO DAILY [facility] Last Admin: 03/13/20 09:48 Dose: Not Given Documented by: Phytonadione (Aqua Mephyton Injection -) 5 mg SQ DAILY [facility] Stop: 03/15/20 10:01 Last Admin: 03/13/20 09:50 Dose: 5 mg Documented by: Rifaximin (Xifaxan -) 550 mg PO BID [facility] Last Admin: 03/13/20 09:49 Dose: 550 mg Documented by: Spironolactone (Aldactone -) 50 mg PO BID [facility] Last Admin: 03/13/20 09:49 Dose: 50 mg Documented by: Tramadol HCl (Ultram -) 50 mg PO Q8H PRN PRN Reason: PAIN LEVEL 6-10 Gen: NAD at rest Heart: RRR Lung: decreased breath sounds at the bases Abd: soft, nontender Ext: + edema Laboratory Results - last 24 hr 03/13/20 03/13/20 03/13/20 06:45 06:45 06:45 WBC 4.7 RBC 2.64 L Hgb 8.1 L Hct 24.8 L MCV 94.2 MCH 30.6 MCHC 32.5 RDW 18.4 H Plt Count 51 L MPV 10.2 Absolute Neuts (auto) 2.9 Neutrophils % 61.9 Lymphocytes % 18.5 D Monocytes % 13.2 H Eosinophils % 5.7 H Basophils % 0.7 Nucleated RBC % 0 PT with INR 24.90 H INR 2.09 H Sodium 138 Potassium 4.2 Chloride 100 Carbon Dioxide 31 Anion Gap 7 L BUN 16.3 Creatinine 1.6 H Est GFR (CKD-EPI)AfAm 35.90 Est GFR (CKD-EPI)NonAf 30.98 Random Glucose 89 Calcium 7.8 L Total Bilirubin 2.1 H AST 43 H ALT 14 Alkaline Phosphatase 85 Total Protein 6.0 L Albumin 2.0 L A/P Volume Overload Ascites CKD Liver Cirrhosis Atrial Fibrillation LV Diastolic Dysfunction HTN - Follow H & H - Lasix, aldactone - Monitor urine output, creatinine - Daily weights - O2 as needed - rate controlled Dr Bauman Problem List - Problems (1) Afib Code(s): I48.91 - UNSPECIFIED ATRIAL FIBRILLATION (2) Anemia Code(s): D64.9 - ANEMIA, UNSPECIFIED (3) Ascites Code(s): R18.8 - OTHER ASCITES Qualifiers: Ascites type: other type Qualified Code(s): R18.8 - Other ascites (4) CKD (chronic kidney disease) Code(s): N18.9 - CHRONIC KIDNEY DISEASE, UNSPECIFIED (5) Chronic liver disease and cirrhosis Code(s): K74.60 - UNSPECIFIED CIRRHOSIS OF LIVER; K76.9 - LIVER DISEASE, UNSPECIFIED (6) Cirrhosis of liver with ascites Code(s): K74.60 - UNSPECIFIED CIRRHOSIS OF LIVER; R18.8 - OTHER ASCITES (7) Cor pulmonale Code(s): I27.81 - COR PULMONALE (CHRONIC) (8) Cryptogenic cirrhosis Code(s): K74.69 - OTHER CIRRHOSIS OF LIVER (9) Edema Code(s): R60.9 - EDEMA, UNSPECIFIED (10) Edema of abdominal wall Code(s): R60.0 - LOCALIZED EDEMA (11) HTN (hypertension) Code(s): I10 - ESSENTIAL (PRIMARY) HYPERTENSION (12) Hypotension Code(s): I95.9 - HYPOTENSION, UNSPECIFIED (13) 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
--- NOTE | 2020-03-13 13:09 | PN ---
Progress Note, Physician History of Present Illness: AWAKE, ALERT IN BED NO RECURRENT RIGORS NO FEVER REPORTS + VAGINAL BLEEDING NO C/O ABDOMINAL OR PELVIC PAIN - Current Medication List Current Medications: Active Medications Acetaminophen (Tylenol -) 650 mg PO Q6H PRN PRN Reason: FEVER Artificial Tears (Artificial Tears) 1 drop OU BID PRN PRN Reason: DRY EYES Docusate Sodium (Colace -) 100 mg PO BID PRN PRN Reason: CONSTIPATION Last Admin: 03/07/20 09:28 Dose: 100 mg Documented by: Furosemide (Lasix Injection -) 40 mg IVPUSH BID@0600,1400 [facility] Last Admin: 03/13/20 05:30 Dose: 40 mg Documented by: Ampicillin Sodium/Sulbactam (Sodium 1.5 gm/ Sodium Chloride) 100 mls @ 200 ml s/hr IVPB Q8H-IV [facility] Last Admin: 03/13/20 09:48 Dose: 200 mls/hr Documented by: Lactulose (Cephulac (Oral Use)) 20 gm PO TID [facility] Last Admin: 03/13/20 05:29 Dose: 20 gm Documented by: Metoprolol Succinate (Toprol Xl -) 12.5 mg PO DAILY [facility] Last Admin: 03/13/20 09:48 Dose: Not Given Documented by: Phytonadione (Aqua Mephyton Injection -) 5 mg SQ DAILY [facility] Stop: 03/15/20 10:01 Last Admin: 03/13/20 09:50 Dose: 5 mg Documented by: Rifaximin (Xifaxan -) 550 mg PO BID [facility] Last Admin: 03/13/20 09:49 Dose: 550 mg Documented by: Spironolactone (Aldactone -) 50 mg PO BID [facility] Last Admin: 03/13/20 09:49 Dose: 50 mg Documented by: Tramadol HCl (Ultram -) 50 mg PO Q8H PRN PRN Reason: PAIN LEVEL 6-10 - Objective Vital Signs: Vital Signs Temperature 98 F 03/13/20 10:00 Pulse Rate 74 03/13/20 10:00 Respiratory Rate 18 03/13/20 10:00 Blood Pressure 93/54 L 03/13/20 10:00 O2 Sat by Pulse Oximetry (%) 98 03/13/20 10:00 Constitutional: Yes: No Distress, Obese Cardiovascular: Yes: Regular Rate and Rhythm, S1, S2 Respiratory: Yes: Diminished Gastrointestinal: Yes: Normal Bowel Sounds, Soft. No: Tenderness Labs: CBC, BMP 03/13/20 06:45 03/13/20 06:45 INR, PTT INR 2.09 (0.83-1.09) H 03/13/20 06:45 Assessment/Plan GRAM POS SISI BACTEREMIA ? SOURCE AWAIT IDENTIFICATION REPEAT BC NO GROWTH WILL EMPIRICALLY COVER FOR LISTERIA UNASYN/ VANCOMYCIN VANCOMYCIN LEVEL NOTED ECHO + URINE C/S ESBL PROBABLE COLONIZER NO TX ADVISED
[2020-03-13] MEDS: VANCOMYCIN 1 GRAM (PRE-DOCKED) 1,000 MG/250 ML BAG IVPB SCH (13:36)
[2020-03-13] MEDS ORDERED: PT OWN MED DRAWER 7, Y5N ONE (14:45)
--- NOTE | 2020-03-13 15:25 | PN ---
Progress Note, Physician History of Present Illness: Pt seen and examined at bedside. She is awake and alert. She feels that her edema is improved. - Current Medication List Current Medications: Active Medications Acetaminophen (Tylenol -) 650 mg PO Q6H PRN PRN Reason: FEVER Artificial Tears (Artificial Tears) 1 drop OU BID PRN PRN Reason: DRY EYES Docusate Sodium (Colace -) 100 mg PO BID PRN PRN Reason: CONSTIPATION Last Admin: 03/07/20 09:28 Dose: 100 mg Documented by: Furosemide (Lasix Injection -) 40 mg IVPUSH BID@0600,1400 [facility] Last Admin: 03/13/20 13:36 Dose: 40 mg Documented by: Ampicillin Sodium/Sulbactam (Sodium 1.5 gm/ Sodium Chloride) 100 mls @ 200 mls/hr IVPB Q8H-IV [facility] Last Admin: 03/13/20 09:48 Dose: 200 mls/hr Documented by: Vancomycin HCl (Vancomycin (Pre-Docked)) 1,000 mg in 250 mls @ 166.667 mls/hr IVPB Q24H [facility]; Protocol Last Admin: 03/13/20 13:36 Dose: 166.667 mls/hr Documented by: Lactulose (Cephulac (Oral Use)) 20 gm PO TID [facility] Last Admin: 03/13/20 13:36 Dose: Not Given Documented by: Metoprolol Succinate (Toprol Xl -) 12.5 mg PO DAILY [facility] Last Admin: 03/13/20 09:48 Dose: Not Given Documented by: Phytonadione (Aqua Mephyton Injection -) 5 mg SQ DAILY [facility] Stop: 03/15/20 10:01 Last Admin: 03/13/20 09:50 Dose: 5 mg Documented by: Rifaximin (Xifaxan -) 550 mg PO BID [facility] Last Admin: 03/13/20 09:49 Dose: 550 mg Documented by: Spironolactone (Aldactone -) 50 mg PO BID [facility] Last Admin: 03/13/20 09:49 Dose: 50 mg Documented by: Tramadol HCl (Ultram -) 50 mg PO Q8H PRN PRN Reason: PAIN LEVEL 6-10 - Objective Vital Signs: Vital Signs Temperature 98 F 03/13/20 10:00 Pulse Rate 74 07/23/20 10:00 Respiratory Rate 18 03/13/20 10:00 Blood Pressure 93/54 L 03/13/20 10:00 O2 Sat by Pulse Oximetry (%) 98 03/13/20 10:00 Constitutional: Yes: Calm Eyes: Yes: Conjunctiva Clear HENT: Yes: Atraumatic Neck: Yes: Supple Cardiovascular: Yes: S1, S2 Respiratory: Yes: CTA Bilaterally Gastrointestinal: Yes: Soft, Abdomen, Obese, Ascites Genitourinary: Yes: WNL Musculoskeletal: Yes: WNL Edema: Yes Edema: LLE: 1+, RLE: 1+ Neurological: Yes: Oriented Psychiatric: Yes: Oriented Labs: CBC, BMP 03/13/20 06:45 03/13/20 06:45 INR, PTT INR 2.09 (0.83-1.09) H 03/13/20 06:45 Problem List - Problems (1) CHF (congestive heart failure) Code(s): I50.9 - HEART FAILURE, UNSPECIFIED Qualifiers: Heart failure type: unspecified Heart failure chronicity: unspecified Qualified Code(s): I50.9 - Heart failure, unspecified (2) Lactic acidosis Code(s): E87.2 - ACIDOSIS Assessment/Plan Current Medications Generic Name Dose Route Start Last Admin Trade Name Freq PRN Reason Stop Dose Admin Acetaminophen 650 mg 03/04/20 20:04 Tylenol - PO Q6H PRN FEVER Artificial Tears 1 drop 03/04/20 20:04 Artificial Tears OU BID PRN DRY EYES Docusate Sodium 100 mg 03/04/20 20:04 03/07/20 09:28 Colace - PO 100 mg BID PRN Administration CONSTIPATION Furosemide 40 mg 03/05/20 06:00 03/13/20 13:36 Lasix Injection - IVPUSH 40 mg BID@0600,1400 [facility] Administration Ampicillin Sodium/Sulbactam 100 mls @ 200 mls/hr 03/11/20 15:15 03/13/20 09:48 Sodium 1.5 gm/ Sodium Chloride IVPB 200 mls/hr Q8H-IV [facility] Administration Vancomycin HCl 1,000 mg in 250 mls @ 166.667 mls/hr 03/13/20 13:15 03/13/20 13:36 Vancomycin (Pre-Docked) IVPB 166.667 mls/hr Q24H [facility] Administration Protocol Lactulose 20 gm 03/13/20 22:00 Cephulac (Oral Use) PO BID [facility] Metoprolol Succinate 12.5 mg 03/06/20 11:03 03/13/20 09:48 Toprol Xl - PO Not Given DAILY [facility] Phytonadione 5 mg 03/13/20 10:00 03/13/20 09:50 Aqua Mephyton Injection - SQ 03/15/20 10:01 5 mg DAILY [facility] Administration Rifaximin 550 mg 03/04/20 22:00 03/13/20 09:49 Xifaxan - PO 550 mg BID [facility] Administration Spironolactone 50 mg 03/06/20 22:00 03/13/20 09:49 Aldactone - PO 50 mg BID [facility] Administration Tramadol HCl 50 mg 03/11/20 10:35 Ultram - PO Q8H PRN PAIN LEVEL 6-10 Impression 1. CKD 2. ascites 3. liver cirrhosis 4. ileus 5. microscopic hematuria 6. fluid overload 7. a-fib 8. hyperkalemia 9. 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
--- NOTE | 2020-03-13 19:21 | PN ---
Teaching Attending Note Name of Resident: Gus Kelly ATTENDING PHYSICIAN STATEMENT I saw and evaluated the patient. I reviewed the resident's note and discussed the case with the resident. I agree with the resident's findings and plan as documented. 74 y.o. F w/ PMHx. of Cirrhosis(KING w/ ascites and Hx. of HE), HFpEF, Afib(on reduced dose Eliquis), CKD (Stage 3), Venous insufficiency, HTN, anemia, and thrombocytopenia presents for increased abdominal swelling. Worsening anemia and vaginal bleeding. Initially following for likely anemia of chronic disease, and thrombocytopenia thought to be related to cirrhosis. While inpt developed significant vaginal bleeding. No prior h/o abnormal clinical bleeding. Current bleeding likely multifactorial including apixaban tx, thrombocytopenia(chronic), and or liver disease. Noted to have elevated PT/INR, tx'd with vit K without much improvement. Last dose of apixaban was on 03-11-2020. -transfuse 1 unit plts if vaginal bleeding persists. -PT mixing study if PT/INR remain elevated. -check fibrinogen. -Fire Supervisor eval.
[2020-03-14] MEDS ORDERED: SODIUM CHLORIDE 100 ML IVPB ONE ×4 (01:06→23:56)
[2020-03-14] MEDS ORDERED: AMPICILLIN NA/SULBACTAM NA 1.5 GM VIAL ONE ×4 (01:06→23:56)
[2020-03-14] MEDS: AMPICILLIN NA/SULBACTAM NA 1.5 GM in SODIUM CHLORIDE 100 ML IVPB SCH ×3 (01:44→18:10)
[2020-03-14] MEDS: FUROSEMIDE 40 MG/4 ML INJECTABLE VIAL IVPUSH SCH ×2 (05:42→13:58)
--- NOTE | 2020-03-14 06:45 | PN ---
Progress Note (short form) - Note Progress Note: sprayer insecticide follow up patient seen and examined abdomen soft, large ascitis pelvic vagina small dark blood in vault , no active bleeding seen again . impression post menopausal vaginal bleeding anemia elevated INR secondary to anticoagulation in view of normal EM , and elevated INR and liver cirrhosis,high surgical risk no surgical intervention needed at this time . await correcting INR , ptt anemia most likly multifactorial secondary to chronic disease , nutritional , vaginal bleeding is not a major cause revaluate after coagulation corrected blood transfusion PRN
[2020-03-14 07:08] LABS: INR 1.82 (0.83-1.09); PROTHROMBIN TIME (PATIENT) 21.6 SEC (9.7-13.0)
[2020-03-14 07:09] LABS: BASO % 0.6 % (0-2.0); EOS % 5.1 % (0-4.5); HEMATOCRIT 23.3 % (32.4-45.2); HEMOGLOBIN 7.7 GM/dL (10.7-15.3); LYMPH % 22.7 % (8-40); MCH 30.7 pg (25.7-33.7); MCHC 33.1 g/dl (32.0-36.0); MEAN CELL VOLUME 92.9 fl (80-96); MEAN PLT VOLUME 10.1 fl (7.5-11.1); MONO % 13.8 % (3.8-10.2); NEUT % 57.8 % (42.8-82.8); PLATELET COUNT 58 K/MM3 (134-434); RBC 2.51 M/mm3 (3.60-5.2); WHITE BLOOD COUNT 5.1 K/mm3 (4.0-10.0)
[2020-03-14 07:26] LABS: ALBUMIN 1.9 g/dl (3.4-5.0); BILIRUBIN,TOTAL 1.6 mg/dL (0.2-1); BLOOD UREA NITROGEN 15.8 mg/dL (7-18); CALCIUM 7.9 mg/dL (8.5-10.1); CREATININE 1.7 mg/dL (0.55-1.3); POTASSIUM 3.6 mmol/L (3.5-5.1)
[2020-03-14] MEDS ORDERED: PT OWN MED DRAWER 7, Y5N ONE (09:17)
--- NOTE | 2020-03-14 09:42 | PN ---
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 Abiola GARCIA MD
[2020-03-14] MEDS ORDERED: PHYTONADIONE 10 MG/1 ML AMP SQ ONE (10:33)
--- NOTE | 2020-03-14 10:36 | PN ---
Progress Note, Physician Chief Complaint: Ascites Cryptogenic cirrhosis CKD History of Present Illness: NAD, sitting in a chair BC + bacillus species UC + ESBL vaginal bleeding has slowed down a lot Last Eliquis dose was 03/11/20 @ 2100 Pt was given Vitamin K 5 mg daily since 03/11/20, also given Vit K SQ 10 mg yesterday INR 1.89 today Seen by SUPERVISOR CLEANING AND ANNEALING- no surgical intervention recommended at this time Hg-7.7 - Current Medication List Current Medications: Active Medications Acetaminophen (Tylenol -) 650 mg PO Q6H PRN PRN Reason: FEVER Artificial Tears (Artificial Tears) 1 drop OU BID PRN PRN Reason: DRY EYES Docusate Sodium (Colace -) 100 mg PO BID PRN PRN Reason: CONSTIPATION Last Admin: 03/07/20 09:28 Dose: 100 mg Documented by: Furosemide (Lasix Injection -) 40 mg IVPUSH BID@0600,1400 [facility] Last Admin: 03/14/20 05:42 Dose: 40 mg Documented by: Ampicillin Sodium/Sulbactam (Sodium 1.5 gm/ Sodium Chloride) 100 mls @ 200 mls/hr IVPB Q8H-IV [facility] Last Admin: 03/14/20 01:44 Dose: 200 mls/hr Documented by: Vancomycin HCl (Vancomycin (Pre-Docked)) 1,000 mg in 250 mls @ 166.667 mls/hr IVPB Q24H [facility]; Protocol Last Admin: 03/13/20 13:36 Dose: 166.667 mls/hr Documented by: Lactulose (Cephulac (Oral Use)) 20 gm PO BID [facility] Last Admin: 03/13/20 21:41 Dose: Not Given Documented by: Metoprolol Succinate (Toprol Xl -) 12.5 mg PO DAILY [facility] Last Admin: 03/13/20 09:48 Dose: Not Given Documented by: Phytonadione (Aqua Mephyton Injection -) 5 mg SQ DAILY [facility] Stop: 03/15/20 10:01 Last Admin: 03/13/20 09:50 Dose: 5 mg Documented by: Phytonadione (Aqua Mephyton Injection -) 10 mg SQ ONCE ONE Stop: 03/14/20 10:34 Rifaximin (Xifaxan -) 550 mg PO BID [facility] Last Admin: 03/13/20 21:41 Dose: 550 mg Documented by: Spironolactone (Aldactone -) 50 mg PO BID [facility] Last Admin: 03/13/20 21:40 Dose: 50 mg Documented by: Tramadol HCl (Ultram -) 50 mg PO Q8H PRN PRN Reason: PAIN LEVEL 6-10 - Objective Vital Signs: Vital Signs Temperature 98.5 F 03/14/20 05:47 Pulse Rate 84 03/14/20 05:47 Respiratory Rate 18 03/14/20 05:47 Blood Pressure 100/57 L 03/14/20 05:47 O2 Sat by Pulse Oximetry (%) 96 03/14/20 05:47 Constitutional: Yes: Well Nourished, No Distress, Calm, Obese Cardiovascular: Yes: Regular Rate and Rhythm Respiratory: Yes: Regular, CTA Bilaterally Gastrointestinal: Yes: Normal Bowel Sounds, Soft, Abdomen, Obese, Ascites (RLQ) Genitourinary: Yes: Incontinence Musculoskeletal: Yes: Muscle Weakness Extremities: Yes: WNL Edema: No Peripheral Pulses WNL: Yes Neurological: Yes: Alert, Oriented Psychiatric: Yes: Alert, Oriented Labs: CBC, BMP 03/14/20 06:37 03/14/20 06:37 INR, PTT INR 1.82 (0.83-1.09) H 03/14/20 06:37 Fibrinogen < 100.0 mg/dL (238-498) L* 03/14/20 06:45 Problem List - Problems (1) Afib Assessment/Plan: -Chronic, rate controlled -Hold Eliquis Problems reviewed: Yes Code(s): I48.91 - UNSPECIFIED ATRIAL FIBRILLATION (2) Anemia Assessment/Plan: -acute vs Chronic -2/2 to chronic liver disease -+ Vaginal bleed -SUPERVISOR [employer] ANNEALING consult to re-evaluate -CA 125 elevated -Monitor trend -Transfuse only if Hg<7.0 to avoid fluid overload -Please hold PRBC ordered for today. Pt's baseline Hg is between 7-8 2/2 to liver cirrhosis Problems reviewed: Yes Code(s): D64.9 - ANEMIA, UNSPECIFIED (3) CKD (chronic kidney disease) Assessment/Plan: -nephrology consult -Continue furosemide 40 mg IVP BID -Continue Spironolactone 50 mg po daily Problems reviewed: Yes Code(s): N18.9 - CHRONIC KIDNEY DISEASE, UNSPECIFIED (4) Cryptogenic cirrhosis Assessment/Plan: -GI consult -Continue lactulose + rifaxamin Problems reviewed: Yes Code(s): K74.69 - OTHER CIRRHOSIS OF LIVER (5) Edema of abdominal wall Assessment/Plan: -Continue Furosemide 40 mg IV BID -Continue spironolactone Problems reviewed: Yes Code(s): R60.0 - LOCALIZED EDEMA (6) Lactic acidosis Assessment/Plan: -chronic -Repeat CXR-negative -Cultures: Microbiology 03/11/20 16:10 Blood - Peripheral Venous Blood Culture - Preliminary NO GROWTH OBTAINED AFTER 48 HOURS, INCUBATION TO CONTINUE FOR 3 DAYS. 03/11/20 16:40 Blood - Peripheral Venous Blood Culture - Preliminary NO GROWTH OBTAINED AFTER 48 HOURS, INCUBATION TO CONTINUE FOR 3 DAYS. 03/10/20 16:15 Urine - Urine Flores Urine Culture - Final Klebsiella Pneumoniae - Esbl 03/10/20 06:20 Blood - Peripheral Venous Blood Culture - Preliminary Bacillus Species, Not Antracis 03/10/20 06:15 Blood - Peripheral Venous Blood Culture - Preliminary Bacillus Species, Not Antracis 03/02/20 13:54 Urine - Urine Clean Catch Urine Culture - Final NO GROWTH OBTAINED Problems reviewed: Yes Code(s): E87.2 - ACIDOSIS (7) Vaginal bleeding Assessment/Plan: -Transvaginal U/S reviewed -SUPERVISOR CLEANING [employer] ANNEALING consult appreciated, they will re-evaluate -CA125 elevated -If pt continues to bleed despite holding eliquis, would need D&C or hysteroscopy -Vitamin K 10 mg SQ x 3 doses -will monitor daily INR -INR goal close to 1.5 Problems reviewed: Yes Code(s): N93.9 - ABNORMAL UTERINE AND VAGINAL BLEEDING, UNSPECIFIED (8) Bacteremia Assessment/Plan: -ID consult -IV abx -Afebrile Problems reviewed: Yes Code(s): R78.81 - BACTEREMIA (9) UTI (urinary tract infection) Assessment/Plan: -UC: ESBL -ID on board -IV abx as per ID if indicated Problems reviewed: Yes Code(s): N39.0 - URINARY TRACT INFECTION, SITE NOT SPECIFIED Assessment/Plan See problem list Spoke son Jefferson to update pt status.
[2020-03-14] MEDS: PHYTONADIONE 10 MG/1 ML AMP SQ SCH ×2 (10:42→12:30)
[2020-03-14] MEDS: SPIRONOLACTONE 25 MG TABLET PO SCH ×2 (10:42→21:18)
[2020-03-14] MEDS: metoPROLOL SUCCINATE 25 MG TAB.SR.24H (FP) PO SCH (10:43)
[2020-03-14] MEDS: RIFAXIMIN 550 MG TABLET (UD) PO SCH ×2 (10:43→21:18)
[2020-03-14] MEDS: LACTULOSE 20 GM/30 ML UDC (FOR ORAL USE ONLY) PO SCH ×2 (10:44→21:18)
--- NOTE | 2020-03-14 11:52 | PN ---
Progress Note, Physician History of Present Illness: AWAKE, OOB IN CHAIR NO RECURRENT RIGORS NO FEVER REPORTS VAGINAL BLEEDING IMPROVED NO C/O ABDOMINAL OR PELVIC PAIN NO DYSURIA - Current Medication List Current Medications: Active Medications Acetaminophen (Tylenol -) 650 mg PO Q6H PRN PRN Reason: FEVER Artificial Tears (Artificial Tears) 1 drop OU BID PRN PRN Reason: DRY EYES Docusate Sodium (Colace -) 100 mg PO BID PRN PRN Reason: CONSTIPATION Last Admin: 03/07/20 09:28 Dose: 100 mg Documented by: Furosemide (Lasix Injection -) 40 mg IVPUSH BID@0600,1400 [facility] Last Admin: 03/14/20 05:42 Dose: 40 mg Documented by: Ampicillin Sodium/Sulbactam (Sodium 1.5 gm/ Sodium Chloride) 100 mls @ 200 mls/hr IVPB Q8H-IV [facility] Last Admin: 03/14/20 10:41 Dose: 200 mls/hr Documented by: Vancomycin HCl (Vancomycin (Pre-Docked)) 1,000 mg in 250 mls @ 166.667 mls/hr IVPB Q24H [facility]; Protocol Last Admin: 03/13/20 13:36 Dose: 166.667 mls/hr Documented by: Lactulose (Cephulac (Oral Use)) 20 gm PO BID [facility] Last Admin: 03/14/20 10:44 Dose: Not Given Documented by: Metoprolol Succinate (Toprol Xl -) 12.5 mg PO DAILY [facility] Last Admin: 03/14/20 10:43 Dose: Not Given Documented by: Phytonadione (Aqua Mephyton Injection -) 10 mg SQ DAILY [facility] Stop: 03/16/20 10:01 Rifaximin (Xifaxan -) 550 mg PO BID [facility] Last Admin: 03/14/20 10:43 Dose: 550 mg Documented by: Spironolactone (Aldactone -) 50 mg PO BID [facility] Last Admin: 03/14/20 10:42 Dose: 50 mg Documented by: Tramadol HCl (Ultram -) 50 mg PO Q8H PRN PRN Reason: PAIN LEVEL 6-10 - Objective Vital Signs: Vital Signs Temperature 98.5 F 03/14/20 05:47 Pulse Rate 84 03/14/20 05:47 Respiratory Rate 18 03/14/20 05:47 Blood Pressure 100/57 L 07/24/20 05:47 O2 Sat by Pulse Oximetry (%) 96 03/14/20 05:47 Constitutional: Yes: No Distress, Obese Cardiovascular: Yes: Regular Rate and Rhythm, S1, S2 Respiratory: Yes: CTA Bilaterally Gastrointestinal: Yes: Normal Bowel Sounds, Soft, Abdomen, Obese. No: Tenderness Edema: Yes Labs: CBC, BMP 03/14/20 06:37 03/14/20 06:37 INR, PTT INR 1.82 (0.83-1.09) H 03/14/20 06:37 Fibrinogen < 100.0 mg/dL (238-498) L* 03/14/20 06:45 Assessment/Plan GRAM POS SISI BACTEREMIA ? SOURCE AWAIT IDENTIFICATION SPECIMEN SENT TO [facility] REPEAT BC NO GROWTH WILL EMPIRICALLY COVER FOR LISTERIA UNASYN/ VANCOMYCIN VANCOMYCIN LEVEL NOTED ECHO NOO VEGETATIONS + URINE C/S ESBL PROBABLE COLONIZER NO TX ADVISED
[2020-03-14] MEDS: VANCOMYCIN 1 GRAM (PRE-DOCKED) 1,000 MG/250 ML BAG IVPB SCH (12:31)
--- NOTE | 2020-03-14 15:55 | PN ---
Progress Note, Physician History of Present Illness: Pt seen and examined at bedside. She is awake and alert. she denies shortness of breath. - Current Medication List Current Medications: Active Medications Acetaminophen (Tylenol -) 650 mg PO Q6H PRN PRN Reason: FEVER Artificial Tears (Artificial Tears) 1 drop OU BID PRN PRN Reason: DRY EYES Docusate Sodium (Colace -) 100 mg PO BID PRN PRN Reason: CONSTIPATION Last Admin: 03/07/20 09:28 Dose: 100 mg Documented by: Furosemide (Lasix Injection -) 40 mg IVPUSH BID@0600,1400 [facility] Last Admin: 03/14/20 13:58 Dose: 40 mg Documented by: Ampicillin Sodium/Sulbactam (Sodium 1.5 gm/ Sodium Chloride) 100 mls @ 200 mls/hr IVPB Q8H-IV [facility] Last Admin: 03/14/20 10:41 Dose: 200 mls/hr Documented by: Vancomycin HCl (Vancomycin (Pre-Docked)) 1,000 mg in 250 mls @ 166.667 mls/hr IVPB Q24H TAMMY; Protocol Last Admin: 03/14/20 12:31 Dose: 166.667 mls/hr Documented by: Lactulose (Cephulac (Oral Use)) 20 gm PO BID [facility] Last Admin: 03/14/20 10:44 Dose: Not Given Documented by: Metoprolol Succinate (Toprol Xl -) 12.5 mg PO DAILY [facility] Last Admin: 03/14/20 10:43 Dose: Not Given Documented by: Phytonadione (Aqua Mephyton Injection -) 10 mg SQ DAILY [facility] Stop: 03/16/20 10:01 Last Admin: 03/14/20 12:30 Dose: 10 mg Documented by: Rifaximin (Xifaxan -) 550 mg PO BID [facility] Last Admin: 03/14/20 10:43 Dose: 550 mg Documented by: Spironolactone (Aldactone -) 50 mg PO BID [facility] Last Admin: 03/14/20 10:42 Dose: 50 mg Documented by: Tramadol HCl (Ultram -) 50 mg PO Q8H PRN PRN Reason: PAIN LEVEL 6-10 - Objective Vital Signs: Vital Signs Temperature 98.5 F 03/14/20 05:47 Pulse Rate 84 07/24/20 05:47 Respiratory Rate 18 03/14/20 05:47 Blood Pressure 100/57 L 03/14/20 05:47 O2 Sat by Pulse Oximetry (%) 98 03/14/20 09:00 Constitutional: Yes: Calm Eyes: Yes: Conjunctiva Clear HENT: Yes: Atraumatic Cardiovascular: Yes: S1, S2 Respiratory: Yes: CTA Bilaterally Gastrointestinal: Yes: Soft, Abdomen, Obese Genitourinary: Yes: WNL Musculoskeletal: Yes: WNL Edema: Yes Edema: LLE: 1+, RLE: 1+ Neurological: Yes: Oriented Psychiatric: Yes: Oriented Labs: CBC, BMP 03/14/20 06:37 03/14/20 06:37 INR, PTT INR 1.82 (0.83-1.09) H 03/14/20 06:37 Fibrinogen < 100.0 mg/dL (238-498) L* 03/14/20 06:45 Problem List - Problems (1) CHF (congestive heart failure) Code(s): I50.9 - HEART FAILURE, UNSPECIFIED Qualifiers: Heart failure type: unspecified Heart failure chronicity: unspecified Qualified Code(s): I50.9 - Heart failure, unspecified (2) Lactic acidosis Code(s): E87.2 - ACIDOSIS Assessment/Plan Current Medications Generic Name Dose Route Start Last Admin Trade Name Haileq PRN Reason Stop Dose Admin Acetaminophen 650 mg 03/04/20 20:04 Tylenol - PO Q6H PRN FEVER Artificial Tears 1 drop 03/04/20 20:04 Artificial Tears OU BID PRN DRY EYES Docusate Sodium 100 mg 03/04/20 20:04 03/07/20 09:28 Colace - PO 100 mg BID PRN Administration CONSTIPATION Furosemide 40 mg 03/05/20 06:00 03/14/20 13:58 Lasix Injection - IVPUSH 40 mg BID@0600,1400 TAMMY Administration Ampicillin Sodium/Sulbactam 100 mls @ 200 mls/hr 03/11/20 15:15 03/14/20 10:41 Sodium 1.5 gm/ Sodium Chloride IVPB 200 mls/hr Q8H-IV TAMMY Administration Vancomycin HCl 1,000 mg in 250 mls @ 166.667 mls/hr 03/13/20 13:15 03/14/20 12:31 Vancomycin (Pre-Docked) IVPB 166.667 mls/hr Q24H TAMMY Administration Protocol Lactulose 20 gm 03/13/20 22:00 03/14/20 10:44 Cephulac (Oral Use) PO Not Given BID [facility] Metoprolol Succinate 12.5 mg 03/06/20 11:03 03/14/20 10:43 Toprol Xl - PO Not Given DAILY TAMMY Phytonadione 10 mg 03/14/20 11:00 03/14/20 12:30 Aqua Mephyton Injection - SQ 03/16/20 10:01 10 mg DAILY T[facility]MY Administration Rifaximin 550 mg 03/04/20 22:00 03/14/20 10:43 Xifaxan - PO 550 mg BID TAMMY Administration Spironolactone 50 mg 03/06/20 22:00 03/14/20 10:42 Aldactone - PO 50 mg BID TAMMY Administration Tramadol HCl 50 mg 03/11/20 10:35 Ultram - PO Q8H PRN PAIN LEVEL 6-10 Impression 1. CKD 2. ascites 3. liver cirrhosis 4. ileus 5. microscopic hematuria 6. fluid overload 7. a-fib 8. hyperkalemia 9. vaginal spotting Plan - cont diuretics - volume status improving - edema is improving - cont lactulose and rifiximin - will need GI follow up - daily weights
--- NOTE | 2020-03-14 16:56 | PN.GI ---
GI Progress Note Subjective: GI NOte: Feels much better at 206 lbs. This reflects a 24 lbs weight loss. vaginal bleeding persists and Hb is down to 7.7. Anticipates a D&C - Objective Vital Signs: Vital Signs Temperature 98.5 F 03/14/20 05:47 Pulse Rate 84 03/14/20 05:47 Respiratory Rate 18 03/14/20 05:47 Blood Pressure 100/57 L 03/14/20 05:47 O2 Sat by Pulse Oximetry (%) 98 03/14/20 09:00 Laboratory Tests 03/08/20 03/11/20 03/13/20 09:00 07:00 06:45 Hgb 9.2 L Plt Count Total Bilirubin 2.4 H 2.1 H AST 45 H ALT 18 Alkaline Phosphatase 97 03/14/20 03/14/20 06:37 06:37 Hgb 7.7 L Plt Count 58 L Total Bilirubin 1.6 H AST 37 ALT 14 Alkaline Phosphatase 103 Constitutional: Calm ...Auscultate: Yes: Normoactive Bowel Sounds ...Palpate: Yes: Soft, Other (nontender) Labs: CBC, BMP 03/14/20 06:37 03/14/20 06:37 INR, PTT INR 1.82 (0.83-1.09) H 03/14/20 06:37 Fibrinogen < 100.0 mg/dL (238-498) L* 03/14/20 06:45 Assessment/Plan Impression: - Vaginal, not rectal bleeding - Cirrhosis secondary to KING with hepatic encephalopathy, thrombocytopenia, portal vein thrombosis and ascites that is responding oral diuretics while in [facility] Plan: - Await tandem mill roller intervention - Continue diuretic regimen, lactulose and xifaxan Problem List - Problems (1) Vaginal bleeding Code(s): N93.9 - ABNORMAL UTERINE AND VAGINAL BLEEDING, UNSPECIFIED (2) 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 steatohepatitis) Code(s): K75.81 - NONALCOHOLIC STEATOHEPATITIS (KING); K74.60 - UNSPECIFIED CIRRHOSIS OF LIVER (3) Portal vein thrombosis Code(s): I81 - PORTAL VEIN THROMBOSIS (4) Thrombocytopenia Code(s): D69.6 - THROMBOCYTOPENIA, UNSPECIFIED (5) Hepatic encephalopathy Code(s): K72.90 - HEPATIC FAILURE, UNSPECIFIED WITHOUT COMA (6) Edema Code(s): R60.9 - EDEMA, UNSPECIFIED (7) CKD (chronic kidney disease) Code(s): N18.9 - CHRONIC KIDNEY DISEASE, UNSPECIFIED (8) Cirrhosis of liver with ascites Code(s): K74.60 - UNSPECIFIED CIRRHOSIS OF LIVER; R18.8 - OTHER ASCITES (9) Edema of abdominal wall Code(s): R60.0 - LOCALIZED EDEMA (10) Paroxysmal atrial fibrillation with rapid ventricular response Code(s): I48.0 - PAROXYSMAL ATRIAL FIBRILLATION
--- NOTE | 2020-03-14 21:16 | PN.HO ---
Progress Note (short form) - Note Progress Note: PAtient seen zaria lara still with vaginal bleeding AFVSS Cor: RSR, No murmurs, No gallops Lungs: Clear to P&A Abd: Soft, Normal bowel sounds, No organomegaly Ext:No significant edema LAbs/Meds reviewed A/P Pt. is a 74 y.o. F w/ PMHx. of Cirrhosis(KING w/ ascites and Hx. of HE), HFpEF, Afib(on reduced? dose Eliquis), CKD (Stage 3), Venous insufficiency, HTN, Anemia, and Thrombocytopenia presents for increased abdominal distention, Rt. flank pain. We have been called to assess patient for anemia. normocytic/normochromic anemia of chronic kidney diseased due to CKD/ cirrhosis + ongoing vaginal bleeding iron studies suggestive of chronic disease Reverse AG ratio : ? liver disease. polyclonal hypergammaglobulineia vaginal bleeding -- transvaginal U/S shows no uterine masses but endometrial cavity fluid will need SALICYLIC ACID BLENDER eval CA [address] a/p 02/18--large vol. ascites/calcified fibroids/cirrhosis/splenomegaly fluid cytology 01/29/20 --negative for malignant cells Thrombocytopenia--- due to cirrhosis. 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 k deficiency holding eliquis May need FFP appreciate maternity floor supervisor recs
[2020-03-15] MEDS: AMPICILLIN NA/SULBACTAM NA 1.5 GM in SODIUM CHLORIDE 100 ML IVPB SCH ×3 (01:11→18:06)
[2020-03-15] MEDS: FUROSEMIDE 40 MG/4 ML INJECTABLE VIAL IVPUSH SCH ×2 (05:05→14:04)
[2020-03-15 06:03] LABS: BASO % 0.7 % (0-2.0); HEMATOCRIT 22.4 % (32.4-45.2); HEMOGLOBIN 7.3 GM/dL (10.7-15.3); LYMPH % 20.4 % (8-40); MCH 30.3 pg (25.7-33.7); MCHC 32.6 g/dl (32.0-36.0); MEAN CELL VOLUME 92.9 fl (80-96); MEAN PLT VOLUME 9.9 fl (7.5-11.1); MONO % 12.9 % (3.8-10.2); PLATELET COUNT 54 K/MM3 (134-434); RBC 2.41 M/mm3 (3.60-5.2); RDW 18.1 % (11.6-15.6); WHITE BLOOD COUNT 5.4 K/mm3 (4.0-10.0)
[2020-03-15 06:13] LABS: INR 1.7 (0.83-1.09); PROTHROMBIN TIME (PATIENT) 20.2 SEC (9.7-13.0)
[2020-03-15 06:41] LABS: ALBUMIN 1.9 g/dl (3.4-5.0); BLOOD UREA NITROGEN 15.8 mg/dL (7-18); CALCIUM 8.1 mg/dL (8.5-10.1); POTASSIUM 3.8 mmol/L (3.5-5.1)
[2020-03-15 06:45] LABS: BILIRUBIN,TOTAL 1.9 mg/dL (0.2-1); CREATININE 1.6 mg/dL (0.55-1.3); TOT PROT 5.9 g/dl (6.4-8.2)
--- NOTE | 2020-03-15 09:24 | PN ---
Progress Note, Physician Chief Complaint: Ascites Cryptogenic cirrhosis CKD History of Present Illness: NAD, sitting on a commode BC + bacillus species UC + ESBL vaginal bleeding has slowed down a lot Last Eliquis dose was 03/11/20 @ 2100 Vit K SQ 10 mg daily until INR is close to 1.5 -Plt 54 today Plt 1 U ordered by hematology INR 1.7 today Seen by LIBRARIAN SPECIALIST- no surgical intervention recommended at this time Hg-7.3 - Current Medication List Current Medications: Active Medications Acetaminophen (Tylenol -) 650 mg PO Q6H PRN PRN Reason: FEVER Artificial Tears (Artificial Tears) 1 drop OU BID PRN PRN Reason: DRY EYES Docusate Sodium (Colace -) 100 mg PO BID PRN PRN Reason: CONSTIPATION Last Admin: 03/07/20 09:28 Dose: 100 mg Documented by: Furosemide (Lasix Injection -) 40 mg IVPUSH BID@0600,1400 [facility] Last Admin: 03/15/20 05:05 Dose: 40 mg Documented by: Ampicillin Sodium/Sulbactam (Sodium 1.5 gm/ Sodium Chloride) 100 mls @ 200 mls/hr IVPB Q8H-IV [facility] Last Admin: 03/15/20 01:11 Dose: 200 mls/hr Documented by: Vancomycin HCl (Vancomycin (Pre-Docked)) 1,000 mg in 250 mls @ 166.667 mls/hr IVPB Q24H T[facility]; Protocol Last Admin: 03/14/20 12:31 Dose: 166.667 mls/hr Documented by: Lactulose (Cephulac (Oral Use)) 20 gm PO BID [facility] Last Admin: 03/14/20 21:18 Dose: 20 gm Documented by: Metoprolol Succinate (Toprol Xl -) 12.5 mg PO DAILY [facility] Last Admin: 03/14/20 10:43 Dose: Not Given Documented by: Phytonadione (Aqua Mephyton Injection -) 10 mg SQ DAILY [facility] Stop: 03/16/20 10:01 Last Admin: 03/14/20 12:30 Dose: 10 mg Documented by: Rifaximin (Xifaxan -) 550 mg PO BID [facility] Last Admin: 03/14/20 21:18 Dose: 550 mg Documented by: Spironolactone (Aldactone -) 50 mg PO BID [facility] Last Admin: 03/14/20 21:18 Dose: 50 mg Documented by: Tramadol HCl (Ultram -) 50 mg PO Q8H PRN PRN Reason: PAIN LEVEL 6-10 - Objective Vital Signs: Vital Signs Temperature 98.1 F 03/15/20 06:00 Pulse Rate 87 03/15/20 06:00 Respiratory Rate 18 03/15/20 06:00 Blood Pressure 111/58 L 03/15/20 06:00 O2 Sat by Pulse Oximetry (%) 94 L 03/15/20 06:00 Constitutional: Yes: Well Nourished, No Distress, Calm, Obese Cardiovascular: Yes: Regular Rate and Rhythm Respiratory: Yes: Regular, CTA Bilaterally Gastrointestinal: Yes: Normal Bowel Sounds, Soft, Abdomen, Obese, Ascites (RLQ) Genitourinary: Yes: WNL Musculoskeletal: Yes: Muscle Weakness Extremities: Yes: WNL Edema: Yes Edema: LLE: 2+, RLE: 2+ Peripheral Pulses WNL: Yes Neurological: Yes: Alert, Oriented Psychiatric: Yes: Alert, Oriented Labs: CBC, BMP 03/15/20 05:40 03/15/20 05:40 INR, PTT INR 1.70 (0.83-1.09) H 03/15/20 05:40 Fibrinogen < 100.0 mg/dL (238-498) L* 03/14/20 06:45 Problem List - Problems (1) Afib Assessment/Plan: -Chronic, rate controlled -Hold Eliquis Problems reviewed: Yes Code(s): I48.91 - UNSPECIFIED ATRIAL FIBRILLATION (2) Anemia Assessment/Plan: -acute vs Chronic -2/2 to chronic liver disease -+ Vaginal bleed-mild now -LIBRARIAN SPECIALIST consult appreciated -CA 125 elevated -Monitor trend -Transfuse only if Hg<7.0 to avoid fluid overload -Continue Vit K 10 mg SQ daily until INR is close to 1.5 Problems reviewed: Yes Code(s): D64.9 - ANEMIA, UNSPECIFIED (3) CKD (chronic kidney disease) Assessment/Plan: -nephrology consult -Continue furosemide 40 mg IVP BID -Continue Spironolactone 50 mg po daily Problems reviewed: Yes Code(s): N18.9 - CHRONIC KIDNEY DISEASE, UNSPECIFIED (4) Cryptogenic cirrhosis Assessment/Plan: -GI consult -Continue lactulose + rifaxamin Problems reviewed: Yes Code(s): K74.69 - OTHER CIRRHOSIS OF LIVER (5) Edema of abdominal wall Assessment/Plan: -Continue Furosemide 40 mg IV BID -Continue spironolactone Problems reviewed: Yes Code(s): R60.0 - LOCALIZED EDEMA (6) Lactic acidosis Assessment/Plan: -chronic -Repeat CXR-negative -Cultures: Microbiology 03/11/20 16:10 Blood - Peripheral Venous Blood Culture - Preliminary NO GROWTH OBTAINED AFTER 48 HOURS, INCUBATION TO CONTINUE FOR 3 DAYS. 03/11/20 16:40 Blood - Peripheral Venous Blood Culture - Preliminary NO GROWTH OBTAINED AFTER 48 HOURS, INCUBATION TO CONTINUE FOR 3 DAYS. 03/10/20 16:15 Urine - Urine Flores Urine Culture - Final Klebsiella Pneumoniae - Esbl 03/10/20 06:20 Blood - Peripheral Venous Blood Culture - Preliminary Bacillus Species, Not Antracis 03/10/20 06:15 Blood - Peripheral Venous Blood Culture - Preliminary Bacillus Species, Not Antracis 03/02/20 13:54 Urine - Urine Clean Catch Urine Culture - Final NO GROWTH OBTAINED Problems reviewed: Yes Code(s): E87.2 - ACIDOSIS (7) Vaginal bleeding Assessment/Plan: -Transvaginal U/S reviewed -LIBRARIAN SPECIALIST consult appreciated -CA125 elevated -If pt continues to bleed despite holding eliquis, would need D&C or hysteroscopy -Vitamin K 10 mg SQ daily x 3 doses -will monitor daily INR -INR goal close to 1.5 Problems reviewed: Yes Code(s): N93.9 - ABNORMAL UTERINE AND VAGINAL BLEEDING, UNSPECIFIED (8) Bacteremia Assessment/Plan: -ID consult -IV abx -Afebrile Problems reviewed: Yes Code(s): R78.81 - BACTEREMIA (9) UTI (urinary tract infection) Assessment/Plan: -UC: ESBL -ID on board -IV abx as per ID if indicated Problems reviewed: Yes Code(s): N39.0 - URINARY TRACT INFECTION, SITE NOT SPECIFIED Assessment/Plan See problem list
[2020-03-15] MEDS ORDERED: AMPICILLIN NA/SULBACTAM NA 1.5 GM VIAL ONE ×3 (09:45→23:24)
[2020-03-15] MEDS ORDERED: SODIUM CHLORIDE 100 ML IVPB ONE ×3 (09:46→23:25)
[2020-03-15] MEDS: LACTULOSE 20 GM/30 ML UDC (FOR ORAL USE ONLY) PO SCH ×2 (09:49→21:08)
[2020-03-15] MEDS: RIFAXIMIN 550 MG TABLET (UD) PO SCH ×2 (09:50→21:07)
[2020-03-15] MEDS: PHYTONADIONE 10 MG/1 ML AMP SQ SCH (09:50)
[2020-03-15] MEDS: SPIRONOLACTONE 25 MG TABLET PO SCH ×2 (09:54→21:07)
[2020-03-15] MEDS: metoPROLOL SUCCINATE 25 MG TAB.SR.24H (FP) PO SCH (09:54)
--- NOTE | 2020-03-15 11:56 | PN ---
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 - hematology notes reviewed Abiola GARCIA MD
--- NOTE | 2020-03-15 12:12 | PN ---
Progress Note (short form) - Note Progress Note: Patient seen in follow up. No new complaints. Denies dyspnea or abdominal discomfort. States her vaginal bleeding has abated. No significant events overnight. Inpatient Meds reviewed. Current Medications Generic Name Dose Route Start Last Admin Trade Name Freq PRN Reason Stop Dose Admin Acetaminophen 650 mg 03/04/20 20:04 Tylenol - PO Q6H PRN FEVER Artificial Tears 1 drop 03/04/20 20:04 Artificial Tears OU BID PRN DRY EYES Docusate Sodium 100 mg 03/04/20 20:04 03/07/20 09:28 Colace - PO 100 mg BID PRN Administration CONSTIPATION Furosemide 40 mg 03/05/20 06:00 03/15/20 05:05 Lasix Injection - IVPUSH 40 mg BID@0600,1400 T[facility] Administration Ampicillin Sodium/Sulbactam 100 mls @ 200 mls/hr 03/11/20 15:15 03/15/20 09:49 Sodium 1.5 gm/ Sodium Chloride IVPB 200 mls/hr Q8H-IV TAMMY Administration Vancomycin HCl 1,000 mg in 250 mls @ 166.667 mls/hr 03/13/20 13:15 03/14/20 12:31 Vancomycin (Pre-Docked) IVPB 166.667 mls/hr Q24H TAMMY Administration Protocol Lactulose 20 gm 03/13/20 22:00 03/15/20 09:49 Cephulac (Oral Use) PO Not Given BID [facility] Metoprolol Succinate 12.5 mg 03/06/20 11:03 03/15/20 09:54 Toprol Xl - PO 12.5 mg DAILY [facility] Administration Phytonadione 10 mg 03/14/20 11:00 03/15/20 09:50 Aqua Mephyton Injection - SQ 03/16/20 10:01 10 mg DAILY [facility] Administration Rifaximin 550 mg 03/04/20 22:00 03/15/20 09:50 Xifaxan - PO 550 mg BID [facility]MY Administration Spironolactone 50 mg 03/06/20 22:00 03/15/20 09:54 Aldactone - PO 50 mg BID [facility] Administration Tramadol HCl 50 mg 03/11/20 10:35 Ultram - PO Q8H PRN PAIN LEVEL 6-10 On Examination: Last Vital Signs Temp Pulse Resp BP Pulse Ox 98.1 F 87 18 111/58 L 94 L 03/15/20 06:00 03/15/20 06:00 03/15/20 06:00 03/15/20 06:00 03/15/20 06:00 General: In no acute distress, lying comfortably in bed. Extremities: No pallor or icterus. No pedal edema. No palpable lymphadenopathy. CVS: S1, S2, regular, no gallop or murmur. Chest: clear. Abdomen: Mildly distended, Neuro: Alert, oriented, non-focal. Labs: CBC, BMP 03/15/20 05:40 03/15/20 05:40 Assessment. KING cirrhosis, with ascites, recent encephalopathy, baseline coagulopathy (INR circa 2), and thrombocytopenia (platelets circa 50K), admitted with exacerbation of ascites, now improved with diuresis. Currently with recent onset PMVB of unclear etiology. Medical management currently. Anticoagulation held (was on a DOAC for AF and prior PVT) Cryo administered for low fibrinogen level. Hold further blood products if not bleeding. Normocytic anemia - multifactorial - marginally below her baseline - observe for now. 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
[2020-03-15] MEDS: VANCOMYCIN 1 GRAM (PRE-DOCKED) 1,000 MG/250 ML BAG IVPB SCH (13:52)
--- NOTE | 2020-03-15 14:22 | PN ---
Progress Note (short form) - Note Progress Note: still with vaginal bleeding no further fevers on vanco/unasyn for bacteremia- isolate sent to [facility] for ID Vital Signs Period Temp Pulse Resp BP Sys/Patel Pulse Ox Last 24 Hr 97.8 F-98.6 F 70-87 18-20 97-111/52-61 94-98 cor-rrr lungs clear abd soft,nt ext no edema CBC, BMP 03/15/20 05:40 03/15/20 05:40 Microbiology 03/11/20 16:10 Blood - Peripheral Venous Blood Culture - Preliminary NO GROWTH OBTAINED AFTER 72 HOURS, INCUBATION TO CONTINUE FOR 2 DAYS. 03/11/20 16:40 Blood - Peripheral Venous Blood Culture - Preliminary NO GROWTH OBTAINED AFTER 72 HOURS, INCUBATION TO CONTINUE FOR 2 DAYS. 03/10/20 16:15 Urine - Urine Flores Urine Culture - Final Klebsiella Pneumoniae - Esbl 03/10/20 06:20 Blood - Peripheral Venous Blood Culture - Preliminary Bacillus Species, Not Antracis 03/10/20 06:15 Blood - Peripheral Venous Blood Culture - Preliminary Bacillus Species, Not Antracis 03/02/20 13:54 Urine - Urine Clean Catch Urine Culture - Final NO GROWTH OBTAINED a/p vaginal bleeding management per PMD continue vanco/unasyn for bacteremia urine isolate contaminant check vanco trough
--- NOTE | 2020-03-15 14:39 | PN ---
Progress Note, Physician History of Present Illness: Pt seen and examined at bedside. She is awake and alert. She denies shortness of breath. - Current Medication List Current Medications: Active Medications Acetaminophen (Tylenol -) 650 mg PO Q6H PRN PRN Reason: FEVER Artificial Tears (Artificial Tears) 1 drop OU BID PRN PRN Reason: DRY EYES Docusate Sodium (Colace -) 100 mg PO BID PRN PRN Reason: CONSTIPATION Last Admin: 03/07/20 09:28 Dose: 100 mg Documented by: Furosemide (Lasix Injection -) 40 mg IVPUSH BID@0600,1400 [facility] Last Admin: 03/15/20 14:04 Dose: 40 mg Documented by: Ampicillin Sodium/Sulbactam (Sodium 1.5 gm/ Sodium Chloride) 100 mls @ 200 mls/hr IVPB Q8H-IV [facility] Last Admin: 03/15/20 09:49 Dose: 200 mls/hr Documented by: Vancomycin HCl (Vancomycin (Pre-Docked)) 1,000 mg in 250 mls @ 166.667 mls/hr IVPB Q24H [facility]; Protocol Last Admin: 03/15/20 13:52 Dose: 166.667 mls/hr Documented by: Lactulose (Cephulac (Oral Use)) 20 gm PO BID [facility] Last Admin: 03/15/20 09:49 Dose: Not Given Documented by: Metoprolol Succinate (Toprol Xl -) 12.5 mg PO DAILY [facility] Last Admin: 03/15/20 09:54 Dose: 12.5 mg Documented by: Phytonadione (Aqua Mephyton Injection -) 10 mg SQ DAILY [facility] Stop: 03/16/20 10:01 Last Admin: 03/15/20 09:50 Dose: 10 mg Documented by: Rifaximin (Xifaxan -) 550 mg PO BID [facility] Last Admin: 03/15/20 09:50 Dose: 550 mg Documented by: Spironolactone (Aldactone -) 50 mg PO BID [facility] Last Admin: 03/15/20 09:54 Dose: 50 mg Documented by: Tramadol HCl (Ultram -) 50 mg PO Q8H PRN PRN Reason: PAIN LEVEL 6-10 - Objective Vital Signs: Vital Signs Temperature 97.8 F 03/15/20 13:46 Pulse Rate 78 03/15/20 13:46 Respiratory Rate 20 07/25/20 13:46 Blood Pressure 104/61 03/15/20 13:46 O2 Sat by Pulse Oximetry (%) 98 03/15/20 13:46 Constitutional: Yes: Calm Eyes: Yes: Conjunctiva Clear HENT: Yes: Atraumatic Cardiovascular: Yes: S1, S2 Respiratory: Yes: CTA Bilaterally Gastrointestinal: Yes: Soft Genitourinary: Yes: Incontinence Musculoskeletal: Yes: Muscle Weakness Edema: Yes Edema: LLE: 1+, RLE: 1+ Neurological: Yes: Oriented Psychiatric: Yes: Oriented Labs: CBC, BMP 03/15/20 05:40 03/15/20 05:40 INR, PTT INR 1.70 (0.83-1.09) H 03/15/20 05:40 Fibrinogen < 100.0 mg/dL (238-498) L* 03/14/20 06:45 Problem List - Problems (1) CHF (congestive heart failure) Code(s): I50.9 - HEART FAILURE, UNSPECIFIED Qualifiers: Heart failure type: unspecified Heart failure chronicity: unspecified Qualified Code(s): I50.9 - Heart failure, unspecified (2) Lactic acidosis Code(s): E87.2 - ACIDOSIS Assessment/Plan Current Medications Generic Name Dose Route Start Last Admin Trade Name Angelique PRN Reason Stop Dose Admin Acetaminophen 650 mg 03/04/20 20:04 Tylenol - PO Q6H PRN FEVER Artificial Tears 1 drop 03/04/20 20:04 Artificial Tears OU BID PRN DRY EYES Docusate Sodium 100 mg 03/04/20 20:04 03/07/20 09:28 Colace - PO 100 mg BID PRN Administration CONSTIPATION Furosemide 40 mg 03/05/20 06:00 03/15/20 14:04 Lasix Injection - IVPUSH 40 mg BID@0600,1400 [facility] Administration Ampicillin Sodium/Sulbactam 100 mls @ 200 mls/hr 03/11/20 15:15 03/15/20 09:49 Sodium 1.5 gm/ Sodium Chloride IVPB 200 mls/hr Q8H-IV [facility] Administration Vancomycin HCl 1,000 mg in 250 mls @ 166.667 mls/hr 03/13/20 13:15 03/15/20 13:52 Vancomycin (Pre-Docked) IVPB 166.667 mls/hr Q24H [facility] Administration Protocol Lactulose 20 gm 03/13/20 22:00 03/15/20 09:49 Cephulac (Oral Use) PO Not Given BID [facility] Metoprolol Succinate 12.5 mg 03/06/20 11:03 03/15/20 09:54 Toprol Xl - PO 12.5 mg DAILY [facility] Administration Phytonadione 10 mg 03/14/20 11:00 03/15/20 09:50 Aqua Mephyton Injection - SQ 03/16/20 10:01 10 mg DAILY [facility] Administration Rifaximin 550 mg 03/04/20 22:00 03/15/20 09:50 Xifaxan - PO 550 mg BID [facility] Administration Spironolactone 50 mg 03/06/20 22:00 03/15/20 09:54 Aldactone - PO 50 mg BID [facility] Administration Tramadol HCl 50 mg 03/11/20 10:35 Ultram - PO Q8H PRN PAIN LEVEL 6-10 Impression 1. CKD 2. ascites 3. liver cirrhosis 4. ileus 5. microscopic hematuria 6. fluid overload 7. a-fib 8. hyperkalemia 9. vaginal spotting Plan - cont lasix, can swithc to po - cont aldactone - renal function stable - cont to monitor volume status - edema is improving - cont lactulose and rifiximin - discussed with GI - daily weights
--- NOTE | 2020-03-15 17:10 | PN.GI ---
GI Progress Note Subjective: GI NOte: Vaginal bleeding persists and Hb down to 7.3. Was transfused - Objective Vital Signs: Vital Signs Temperature 97.8 F 03/15/20 13:46 Pulse Rate 78 03/15/20 13:46 Respiratory Rate 20 03/15/20 13:46 Blood Pressure 104/61 03/15/20 13:46 O2 Sat by Pulse Oximetry (%) 98 03/15/20 13:46 Laboratory Tests 03/14/20 03/15/20 06:37 05:40 Hgb 7.7 L 7.3 L Constitutional: Calm ...Auscultate: Yes: Normoactive Bowel Sounds ...Palpate: Yes: Soft, Other (nontender) Labs: CBC, BMP 03/15/20 05:40 03/15/20 05:40 INR, PTT INR 1.70 (0.83-1.09) H 03/15/20 05:40 Fibrinogen < 100.0 mg/dL (238-498) L* 03/14/20 06:45 Assessment/Plan Impression: - Vaginal, not rectal bleeding - Cirrhosis secondary to KING with hepatic encephalopathy, thrombocytopenia, portal vein thrombosis and ascites that is responding oral diuretics while in the hospital Plan: - Anticipate pipelines manager intervention - Continue diuretic regimen, lactulose and xifaxan Problem List - Problems (1) Vaginal bleeding Code(s): N93.9 - ABNORMAL UTERINE AND VAGINAL BLEEDING, UNSPECIFIED (2) 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 steatohepatitis) Code(s): K75.81 - NONALCOHOLIC STEATOHEPATITIS (KING); K74.60 - UNSPECIFIED CIRRHOSIS OF LIVER (3) Portal vein thrombosis Code(s): I81 - PORTAL VEIN THROMBOSIS (4) Thrombocytopenia Code(s): D69.6 - THROMBOCYTOPENIA, UNSPECIFIED (5) Hepatic encephalopathy Code(s): K72.90 - HEPATIC FAILURE, UNSPECIFIED WITHOUT COMA (6) Edema Code(s): R60.9 - EDEMA, UNSPECIFIED (7) CKD (chronic kidney disease) Code(s): N18.9 - CHRONIC KIDNEY DISEASE, UNSPECIFIED (8) Cirrhosis of liver with ascites Code(s): K74.60 - UNSPECIFIED CIRRHOSIS OF LIVER; R18.8 - OTHER ASCITES (9) Edema of abdominal wall Code(s): R60.0 - LOCALIZED EDEMA (10) Paroxysmal atrial fibrillation with rapid ventricular response Code(s): I48.0 - PAROXYSMAL ATRIAL FIBRILLATION
[2020-03-15 17:27] LABS: HEMATOCRIT 21.6 % (32.4-45.2); MCH 30.6 pg (25.7-33.7); MCHC 32.3 g/dl (32.0-36.0); MEAN CELL VOLUME 94.8 fl (80-96); MEAN PLT VOLUME 10.4 fl (7.5-11.1); PLATELET COUNT 65 K/MM3 (134-434); RBC 2.27 M/mm3 (3.60-5.2); RDW 18.3 % (11.6-15.6); WHITE BLOOD COUNT 4.8 K/mm3 (4.0-10.0)
[2020-03-15 17:38] LABS: INR 1.62 (0.83-1.09); PROTHROMBIN TIME (PATIENT) 19.2 SEC (9.7-13.0)
[2020-03-16] MEDS: AMPICILLIN NA/SULBACTAM NA 1.5 GM in SODIUM CHLORIDE 100 ML IVPB SCH ×3 (01:41→18:40)
[2020-03-16] MEDS: FUROSEMIDE 40 MG TABLET (FP) PO SCH ×2 (05:01→14:46)
[2020-03-16 06:28] LABS: BASO % 0.6 % (0-2.0); EOS % 4.2 % (0-4.5); HEMOGLOBIN 7.2 GM/dL (10.7-15.3); LYMPH % 22.2 % (8-40); MCH 30.4 pg (25.7-33.7); MCHC 32.7 g/dl (32.0-36.0); MEAN PLT VOLUME 9.5 fl (7.5-11.1); MONO % 12.5 % (3.8-10.2); NEUT % 60.5 % (42.8-82.8); PLATELET COUNT 67 K/MM3 (134-434); RBC 2.36 M/mm3 (3.60-5.2); WHITE BLOOD COUNT 5.7 K/mm3 (4.0-10.0)
[2020-03-16 06:32] LABS: INR 1.65 (0.83-1.09); PROTHROMBIN TIME (PATIENT) 19.6 SEC (9.7-13.0)
[2020-03-16 06:55] LABS: ALBUMIN 1.9 g/dl (3.4-5.0); BILIRUBIN,TOTAL 1.5 mg/dL (0.2-1); BLOOD UREA NITROGEN 14.4 mg/dL (7-18); CREATININE 1.6 mg/dL (0.55-1.3); POTASSIUM 3.7 mmol/L (3.5-5.1)
--- NOTE | 2020-03-16 08:03 | PN ---
Progress Note, Physician Chief Complaint: Ascites Cryptogenic cirrhosis CKD History of Present Illness: NAD, sitting on a commode BC + bacillus species UC + ESBL vaginal bleeding has slowed down a lot- just spotting now Last Eliquis dose was 03/11/20 @ 2100 Has been getting Vit K SQ 10 mg daily, last dose yesterday -Plt 67 today Plt 1 U ordered by hematology yesterday INR 1.65 today Seen by ROLL BUILDER- no surgical intervention recommended at this time Hg-7.2 - Current Medication List Current Medications: Active Medications Acetaminophen (Tylenol -) 650 mg PO Q6H PRN PRN Reason: FEVER Artificial Tears (Artificial Tears) 1 drop OU BID PRN PRN Reason: DRY EYES Docusate Sodium (Colace -) 100 mg PO BID PRN PRN Reason: CONSTIPATION Last Admin: 03/07/20 09:28 Dose: 100 mg Documented by: Furosemide (Lasix -) 40 mg PO BID@0600,1400 [facility] Last Admin: 03/16/20 05:01 Dose: 40 mg Documented by: Ampicillin Sodium/Sulbactam (Sodium 1.5 gm/ Sodium Chloride) 100 mls @ 200 m ls/hr IVPB Q8H-IV [facility] Last Admin: 03/16/20 01:41 Dose: 200 mls/hr Documented by: Vancomycin HCl (Vancomycin (Pre-Docked)) 1,000 mg in 250 mls @ 166.667 mls/hr IVPB Q24H [facility]; Protocol Last Admin: 03/15/20 13:52 Dose: 166.667 mls/hr Documented by: Lactulose (Cephulac (Oral Use)) 20 gm PO BID [facility] Last Admin: 03/15/20 21:08 Dose: Not Given Documented by: Metoprolol Succinate (Toprol Xl -) 12.5 mg PO DAILY [facility] Last Admin: 03/15/20 09:54 Dose: 12.5 mg Documented by: Phytonadione ([place] Injection -) 10 mg SQ DAILY [facility] Stop: 03/16/20 10:01 Last Admin: 03/15/20 09:50 Dose: 10 mg Documented by: Rifaximin (Xifaxan -) 550 mg PO BID [facility] Last Admin: 03/15/20 21:07 Dose: 550 mg Documented by: Spironolactone (Aldactone -) 50 mg PO BID [facility] Last Admin: 03/15/20 21:07 Dose: 50 mg Documented by: Tramadol HCl (Ultram -) 50 mg PO Q8H PRN PRN Reason: PAIN LEVEL 6-10 - Objective Vital Signs: Vital Signs Temperature 98.2 F 03/16/20 05:00 Pulse Rate 77 03/16/20 05:00 Respiratory Rate 17 03/16/20 05:00 Blood Pressure 96/54 L 03/16/20 05:00 O2 Sat by Pulse Oximetry (%) 94 L 03/16/20 05:00 Constitutional: Yes: Well Nourished, No Distress, Calm, Obese Cardiovascular: Yes: Regular Rate and Rhythm Respiratory: Yes: Regular, CTA Bilaterally Gastrointestinal: Yes: Normal Bowel Sounds, Soft, Abdomen, Obese, Ascites (mild RLQ) Musculoskeletal: Yes: WNL Extremities: Yes: WNL Edema: Yes Edema: LLE: 1+, RLE: 1+ Peripheral Pulses WNL: Yes Neurological: Yes: Alert, Oriented Psychiatric: Yes: Alert, Oriented Labs: CBC, BMP 03/16/20 06:03 03/16/20 06:03 INR, PTT INR 1.65 (0.83-1.09) H 03/16/20 06:03 Fibrinogen 121.0 mg/dL (238-498) L 03/15/20 16:20 Problem List - Problems (1) Afib Assessment/Plan: -Chronic, rate controlled -Hold Eliquis due to vaginal bleed Problems reviewed: Yes Code(s): I48.91 - UNSPECIFIED ATRIAL FIBRILLATION (2) Anemia Assessment/Plan: -acute vs Chronic -2/2 to chronic liver disease -+ Vaginal bleed-mild now -ROLL BUILDER consult appreciated -CA 125 elevated -Monitor trend -Transfuse only if Hg<7.0 to avoid fluid overload -Vitamin K as needed to keep INR close to 1.5 Problems reviewed: Yes Code(s): D64.9 - ANEMIA, UNSPECIFIED (3) CKD (chronic kidney disease) Assessment/Plan: -nephrology consult -Continue furosemide 40 mg PO BID -Continue Spironolactone 50 mg po daily Problems reviewed: Yes Code(s): N18.9 - CHRONIC KIDNEY DISEASE, UNSPECIFIED (4) Cryptogenic cirrhosis Assessment/Plan: -GI consult -Continue lactulose + rifaxamin Problems reviewed: Yes Code(s): K74.69 - OTHER CIRRHOSIS OF LIVER (5) Edema of abdominal wall Assessment/Plan: -Continue Furosemide 40 mg IV BID -Continue spironolactone Problems reviewed: Yes Code(s): R60.0 - LOCALIZED EDEMA (6) Lactic acidosis Assessment/Plan: -chronic -Repeat CXR-negative -Cultures: Microbiology 03/11/20 16:10 Blood - Peripheral Venous Blood Culture - Preliminary NO GROWTH OBTAINED AFTER 48 HOURS, INCUBATION TO CONTINUE FOR 3 DAYS. 03/11/20 16:40 Blood - Peripheral Venous Blood Culture - Preliminary NO GROWTH OBTAINED AFTER 48 HOURS, INCUBATION TO CONTINUE FOR 3 DAYS. 03/10/20 16:15 Urine - Urine Flores Urine Culture - Final Klebsiella Pneumoniae - Esbl 03/10/20 06:20 Blood - Peripheral Venous Blood Culture - Preliminary Bacillus Species, Not Antracis 03/10/20 06:15 Blood - Peripheral Venous Blood Culture - Preliminary Bacillus Species, Not Antracis 03/02/20 13:54 Urine - Urine Clean Catch Urine Culture - Final NO GROWTH OBTAINED Problems reviewed: Yes Code(s): E87.2 - ACIDOSIS (7) Vaginal bleeding Assessment/Plan: -Transvaginal U/S reviewed -ROLL BUILDER consult appreciated -CA125 elevated -If pt continues to bleed despite holding eliquis, would need D&C or hysteroscopy -Vitamin K 10 mg SQ daily PRN -will monitor daily INR -INR goal close to 1.5 Problems reviewed: Yes Code(s): N93.9 - ABNORMAL UTERINE AND VAGINAL BLEEDING, UNSPECIFIED (8) Bacteremia Assessment/Plan: -ID consult -IV abx -Afebrile -Awaiting final cultures Problems reviewed: Yes Code(s): R78.81 - BACTEREMIA (9) UTI (urinary tract infection) Assessment/Plan: -UC: ESBL -ID on board -IV abx as per ID if indicated Problems reviewed: Yes Code(s): N39.0 - URINARY TRACT INFECTION, SITE NOT SPECIFIED Assessment/Plan See problem list
[2020-03-16] MEDS: SPIRONOLACTONE 25 MG TABLET PO SCH ×2 (09:02→21:40)
[2020-03-16] MEDS: metoPROLOL SUCCINATE 25 MG TAB.SR.24H (FP) PO SCH (09:02)
[2020-03-16] MEDS ORDERED: AMPICILLIN NA/SULBACTAM NA 1.5 GM VIAL ONE ×2 (09:43→17:31)
[2020-03-16] MEDS ORDERED: SODIUM CHLORIDE 100 ML IVPB ONE ×2 (09:44→17:32)
[2020-03-16] MEDS: RIFAXIMIN 550 MG TABLET (UD) PO SCH ×2 (09:46→21:40)
[2020-03-16] MEDS: PHYTONADIONE 10 MG/1 ML AMP SQ SCH (09:46)
[2020-03-16] MEDS: LACTULOSE 20 GM/30 ML UDC (FOR ORAL USE ONLY) PO SCH ×2 (09:46→21:40)
--- NOTE | 2020-03-16 10:15 | PN ---
Progress Note (short form) - Note Progress Note: less vaginal bleeding today no further fevers on vanco/unasyn for bacteremia- isolate sent to [facility] for ID alert no abdominal pain, no sob Vital Signs Period Temp Pulse Resp BP Sys/Patel Pulse Ox Last 24 Hr 97.8 F-98.6 F 74-84 17-20 87-104/51-85 94-98 cor-rrr llungs decreased bs at bases abd soft,nt ext no edema a/p bacteremia- isolated sent to [facility] vaginal bleeding improved liver cirrhosis secondary to KING management per PMD continue vanco/unasyn for bacteremia urine isolate contaminant check vanco trough today (ordered)
--- NOTE | 2020-03-16 11:33 | PN ---
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 - hematology notes reviewed Abiola GARCIA MD
--- NOTE | 2020-03-16 14:40 | PN ---
Progress Note (short form) - Note Progress Note: Patient seen in follow up. No new complaints. Denies dyspnea or abdominal discomfort. States her vaginal bleeding has mostly abated - some spotting No significant events overnight. Inpatient Meds reviewed. Current Medications Generic Name Dose Route Start Last Admin Trade Name Angelique PRN Reason Stop Dose Admin Acetaminophen 650 mg 03/04/20 20:04 Tylenol - PO Q6H PRN FEVER Artificial Tears 1 drop 03/04/20 20:04 Artificial Tears OU BID PRN DRY EYES Docusate Sodium 100 mg 03/04/20 20:04 03/07/20 09:28 Colace - PO 100 mg BID PRN Administration CONSTIPATION Furosemide 40 mg 03/16/20 06:00 03/16/20 05:01 Lasix - PO 40 mg BID@0600,1400 [facility] Administration Ampicillin Sodium/Sulbactam 100 mls @ 200 mls/hr 03/11/20 15:15 03/16/20 09:46 Sodium 1.5 gm/ Sodium Chloride IVPB 200 mls/hr Q8H-IV [facility] Administration Vancomycin HCl 1,000 mg in 250 mls @ 166.667 mls/hr 03/13/20 13:15 03/15/20 13:52 Vancomycin (Pre-Docked) IVPB 166.667 mls/hr Q24H [facility] Administration Protocol Lactulose 20 gm 03/13/20 22:00 03/16/20 09:46 Cephulac (Oral Use) PO Not Given BID [facility] Metoprolol Succinate 12.5 mg 03/06/20 11:03 03/16/20 09:02 Toprol Xl - PO Not Given DAILY [facility] Rifaximin 550 mg 03/04/20 22:00 03/16/20 09:46 Xifaxan - PO 550 mg BID [facility] Administration Spironolactone 50 mg 03/06/20 22:00 03/16/20 09:02 Aldactone - PO Not Given BID [facility] Tramadol HCl 50 mg 03/11/20 10:35 Ultram - PO Q8H PRN PAIN LEVEL 6-10 On Examination: Last Vital Signs Temp Pulse Resp BP Pulse Ox 98.2 F 74 20 87/51 L 98 03/16/20 09:00 03/16/20 09:00 03/16/20 09:00 03/16/20 09:00 03/16/20 09:00 General: In no acute distress, sitting in chair, eating lunch Extremities: No pallor or icterus. No pedal edema. No palpable lymphadenopathy. CVS: S1, S2, regular, no gallop or murmur. Chest: clear. Abdomen: Mildly distended, Neuro: Alert, oriented, non-focal. Labs: CBC, BMP 03/16/20 06:03 03/16/20 06:03 Assessment. KING cirrhosis, with ascites, recent encephalopathy, baseline coagulopathy (INR circa 2), and thrombocytopenia (platelets circa 50K), admitted with exacerbation of ascites, now improved with diuresis. Currently with recent onset PMVB of unclear etiology. Medical management currently. Anticoagulation held (was on a DOAC for AF and prior PVT) Cryo administered previously while bleeding and while fibrinogen level was low. Hold further blood products if not bleeding. Normocytic anemia - multifactorial - marginally below her baseline - observe for now. 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
[2020-03-16] MEDS: VANCOMYCIN 1 GRAM (PRE-DOCKED) 1,000 MG/250 ML BAG IVPB SCH (15:29)
--- NOTE | 2020-03-16 15:41 | PN ---
Progress Note, Physician History of Present Illness: Pt seen and examined at bedside. She is awake and alert. She denies shortness of breath. - Current Medication List Current Medications: Active Medications Acetaminophen (Tylenol -) 650 mg PO Q6H PRN PRN Reason: FEVER Artificial Tears (Artificial Tears) 1 drop OU BID PRN PRN Reason: DRY EYES Docusate Sodium (Colace -) 100 mg PO BID PRN PRN Reason: CONSTIPATION Last Admin: 03/07/20 09:28 Dose: 100 mg Documented by: Furosemide (Lasix -) 40 mg PO BID@0600,1400 [facility] Last Admin: 03/16/20 14:46 Dose: 40 mg Documented by: Ampicillin Sodium/Sulbactam (Sodium 1.5 gm/ Sodium Chloride) 100 mls @ 200 mls/hr IVPB Q8H-IV [facility] Last Admin: 03/16/20 09:46 Dose: 200 mls/hr Documented by: Vancomycin HCl (Vancomycin (Pre-Docked)) 1,000 mg in 250 mls @ 166.667 mls/hr IVPB Q24H [facility]; Protocol Last Admin: 03/16/20 15:29 Dose: 166.667 mls/hr Documented by: Lactulose (Cephulac (Oral Use)) 20 gm PO BID [facility] Last Admin: 03/16/20 09:46 Dose: Not Given Documented by: Metoprolol Succinate (Toprol Xl -) 12.5 mg PO DAILY [facility] Last Admin: 03/16/20 09:02 Dose: Not Given Documented by: Rifaximin (Xifaxan -) 550 mg PO BID [facility] Last Admin: 03/16/20 09:46 Dose: 550 mg Documented by: Spironolactone (Aldactone -) 50 mg PO BID [facility] Last Admin: 03/16/20 09:02 Dose: Not Given Documented by: Tramadol HCl (Ultram -) 50 mg PO Q8H PRN PRN Reason: PAIN LEVEL 6-10 - Objective Vital Signs: Vital Signs Temperature 98.2 F 03/16/20 13:00 Pulse Rate 75 03/16/20 13:00 Respiratory Rate 20 03/16/20 13:00 Blood Pressure 100/57 L 03/16/20 13:00 O2 Sat by Pulse Oximetry (%) 98 03/16/20 13:00 Constitutional: Yes: Calm HENT: Yes: Atraumatic Neck: Yes: Supple Cardiovascular: Yes: S1, S2 Respiratory: Yes: CTA Bilaterally Gastrointestinal: Yes: Soft, Ascites Genitourinary: Yes: WNL Edema: Yes Edema: LLE: 1+, RLE: 1+ Neurological: Yes: Oriented Psychiatric: Yes: Oriented Labs: CBC, BMP 03/16/20 06:03 03/16/20 06:03 INR, PTT INR 1.65 (0.83-1.09) H 03/16/20 06:03 Fibrinogen 121.0 mg/dL (238-498) L 03/15/20 16:20 Problem List - Problems (1) CHF (congestive heart failure) Code(s): I50.9 - HEART FAILURE, UNSPECIFIED Qualifiers: Heart failure type: unspecified Heart failure chronicity: unspecified Qualified Code(s): I50.9 - Heart failure, unspecified (2) Lactic acidosis Code(s): E87.2 - ACIDOSIS Assessment/Plan Current Medications Generic Name Dose Route Start Last Admin Trade Name Freq PRN Reason Stop Dose Admin Acetaminophen 650 mg 03/04/20 20:04 Tylenol - PO Q6H PRN FEVER Artificial Tears 1 drop 03/04/20 20:04 Artificial Tears OU BID PRN DRY EYES Docusate Sodium 100 mg 03/04/20 20:04 03/07/20 09:28 Colace - PO 100 mg BID PRN Administration CONSTIPATION Furosemide 40 mg 03/16/20 06:00 03/16/20 14:46 Lasix - PO 40 mg BID@0600,1400 [facility] Administration Ampicillin Sodium/Sulbactam 100 mls @ 200 mls/hr 03/11/20 15:15 03/16/20 09:46 Sodium 1.5 gm/ Sodium Chloride IVPB 200 mls/hr Q8H-IV [facility] Administration Vancomycin HCl 1,000 mg in 250 mls @ 166.667 mls/hr 03/13/20 13:15 03/16/20 15:29 Vancomycin (Pre-Docked) IVPB 166.667 mls/hr Q24H [facility] Administration Protocol Lactulose 20 gm 03/13/20 22:00 03/16/20 09:46 Cephulac (Oral Use) PO Not Given BID [facility] Metoprolol Succinate 12.5 mg 03/06/20 11:03 03/16/20 09:02 Toprol Xl - PO Not Given DAILY [facility] Rifaximin 550 mg 03/04/20 22:00 03/16/20 09:46 Xifaxan - PO 550 mg BID [facility] Administration Spironolactone 50 mg 03/06/20 22:00 03/16/20 09:02 Aldactone - PO Not Given BID [facility] Tramadol HCl 50 mg 03/11/20 10:35 Ultram - PO Q8H PRN PAIN LEVEL 6-10 Impression 1. CKD 2. ascites 3. liver cirrhosis 4. ileus 5. microscopic hematuria 6. fluid overload 7. a-fib 8. hyperkalemia 9. vaginal spotting Plan - cont po lasix - cont aldactone - monitor weights and volume status - renal function stable - edema is improving - cont lactulose and rifiximin
[2020-03-17] MEDS ORDERED: AMPICILLIN NA/SULBACTAM NA 1.5 GM VIAL ONE ×3 (00:55→16:56)
[2020-03-17] MEDS ORDERED: SODIUM CHLORIDE 100 ML IVPB ONE ×3 (00:55→16:56)
[2020-03-17] MEDS: AMPICILLIN NA/SULBACTAM NA 1.5 GM in SODIUM CHLORIDE 100 ML IVPB SCH ×3 (01:15→17:14)
[2020-03-17] MEDS: FUROSEMIDE 40 MG TABLET (FP) PO SCH ×2 (06:18→13:22)
[2020-03-17 08:01] LABS: BASO % 0.6 % (0-2.0); EOS % 3.5 % (0-4.5); HEMATOCRIT 22.7 % (32.4-45.2); HEMOGLOBIN 7.4 GM/dL (10.7-15.3); LYMPH % 19.7 % (8-40); MCH 30.8 pg (25.7-33.7); MCHC 32.5 g/dl (32.0-36.0); MEAN PLT VOLUME 10.6 fl (7.5-11.1); NEUT % 67.2 % (42.8-82.8); PLATELET COUNT 63 K/MM3 (134-434); RBC 2.39 M/mm3 (3.60-5.2); WHITE BLOOD COUNT 6.6 K/mm3 (4.0-10.0)
[2020-03-17 08:10] LABS: INR 1.66 (0.83-1.09); PROTHROMBIN TIME (PATIENT) 19.7 SEC (9.7-13.0)
[2020-03-17 08:25] LABS: ALBUMIN 1.9 g/dl (3.4-5.0); BILIRUBIN,TOTAL 1.8 mg/dL (0.2-1); BLOOD UREA NITROGEN 14.4 mg/dL (7-18); CALCIUM 8.2 mg/dL (8.5-10.1); CREATININE 1.7 mg/dL (0.55-1.3); POTASSIUM 3.8 mmol/L (3.5-5.1); TOT PROT 6.4 g/dl (6.4-8.2)
--- NOTE | 2020-03-17 08:58 | PN ---
Progress Note, Physician History of Present Illness: Ascites Cryptogenic cirrhosis CKD History of Present Illness: NAD, sitting on a commode BC + bacillus species UC + ESBL vaginal bleeding has slowed down a lot- just spotting now Last Eliquis dose was 03/11/20 @ 2100 Has been getting Vit K SQ 10 mg daily, last dose yesterday -Plt 67 today Plt 1 U ordered by hematology yesterday INR 1.65 today Seen by VETERINARY RECEPTIONIST- no surgical intervention recommended at this time Hg-7.2 - Current Medication List Current Medications: Active Medications Acetaminophen (Tylenol -) 650 mg PO Q6H PRN PRN Reason: FEVER Artificial Tears (Artificial Tears) 1 drop OU BID PRN PRN Reason: DRY EYES Docusate Sodium (Colace -) 100 mg PO BID PRN PRN Reason: CONSTIPATION Last Admin: 03/07/20 09:28 Dose: 100 mg Documented by: Furosemide (Lasix -) 40 mg PO BID@0600,1400 [facility] Last Admin: 03/17/20 06:18 Dose: 40 mg Documented by: Ampicillin Sodium/Sulbactam (Sodium 1.5 gm/ Sodium Chloride) 100 mls @ 200 mls/hr IVPB Q8H-IV [facility] Last Admin: 03/17/20 01:15 Dose: 200 mls/hr Documented by: Vancomycin HCl (Vancomycin (Pre-Docked)) 1,000 mg in 250 mls @ 166.667 mls/hr IVPB Q24H [facility]; Protocol Last Admin: 03/16/20 15:29 Dose: 166.667 mls/hr Documented by: Lactulose (Cephulac (Oral Use)) 20 gm PO BID [facility] Last Admin: 03/16/20 21:40 Dose: Not Given Documented by: Metoprolol Succinate (Toprol Xl -) 12.5 mg PO DAILY [facility] Last Admin: 03/16/20 09:02 Dose: Not Given Documented by: Rifaximin (Xifaxan -) 550 mg PO BID [facility] Last Admin: 03/16/20 21:40 Dose: 550 mg Documented by: Spironolactone (Aldactone -) 50 mg PO BID [facility] Last Admin: 03/16/20 21:40 Dose: 50 mg Documented by: Tramadol HCl (Ultram -) 50 mg PO Q8H PRN PRN Reason: PAIN LEVEL 6-10 - Objective Vital Signs: Vital Signs Temperature 98.2 F 03/17/20 06:00 Pulse Rate 84 03/17/20 06:00 Respiratory Rate 17 03/17/20 06:00 Blood Pressure 101/54 L 03/17/20 06:00 O2 Sat by Pulse Oximetry (%) 98 03/17/20 06:00 Cardiovascular: Yes: Regular Rate and Rhythm Respiratory: Yes: Regular, CTA Bilaterally Gastrointestinal: Yes: Normal Bowel Sounds, Soft Labs: CBC, BMP 03/17/20 06:56 03/17/20 06:56 INR, PTT INR 1.66 (0.83-1.09) H 03/17/20 06:56 Fibrinogen 121.0 mg/dL (238-498) L 03/15/20 16:20 Assessment/Plan - Problems (1) Afib Assessment/Plan: -Chronic, rate controlled -Hold Eliquis due to vaginal bleed Problems reviewed: Yes Code(s): I48.91 - UNSPECIFIED ATRIAL FIBRILLATION (2) Anemia Assessment/Plan: -acute vs Chronic -2/2 to chronic liver disease -+ Vaginal bleed-mild now -VETERINARY RECEPTIONIST consult appreciated -CA 125 elevated -Monitor trend -Transfuse only if Hg<7.0 to avoid fluid overload -Vitamin K as needed to keep INR close to 1.5 Problems reviewed: Yes Code(s): D64.9 - ANEMIA, UNSPECIFIED (3) CKD (chronic kidney disease) Assessment/Plan: -nephrology consult -Continue furosemide 40 mg PO BID -Continue Spironolactone 50 mg po daily Problems reviewed: Yes Code(s): N18.9 - CHRONIC KIDNEY DISEASE, UNSPECIFIED (4) Cryptogenic cirrhosis Assessment/Plan: -GI consult -Continue lactulose + rifaxamin Problems reviewed: Yes Code(s): K74.69 - OTHER CIRRHOSIS OF LIVER (5) Edema of abdominal wall Assessment/Plan: -Continue Furosemide 40 mg IV BID -Continue spironolactone Problems reviewed: Yes Code(s): R60.0 - LOCALIZED EDEMA (6) Lactic acidosis Assessment/Plan: -chronic -Repeat CXR-negative -Cultures: Microbiology 03/11/20 16:10 Blood - Peripheral Venous Blood Culture - Preliminary NO GROWTH OBTAINED AFTER 48 HOURS, INCUBATION TO CONTINUE FOR 3 DAYS. 03/11/20 16:40 Blood - Peripheral Venous Blood Culture - Preliminary NO GROWTH OBTAINED AFTER 48 HOURS, INCUBATION TO CONTINUE FOR 3 DAYS. 03/10/20 16:15 Urine - Urine Flores Urine Culture - Final Klebsiella Pneumoniae - Esbl 03/10/20 06:20 Blood - Peripheral Venous Blood Culture - Preliminary Bacillus Species, Not Antracis 03/10/20 06:15 Blood - Peripheral Venous Blood Culture - Preliminary Bacillus Species, Not Antracis 03/02/20 13:54 Urine - Urine Clean Catch Urine Culture - Final NO GROWTH OBTAINED Problems reviewed: Yes Code(s): E87.2 - ACIDOSIS (7) Vaginal bleeding Assessment/Plan: -Transvaginal U/S reviewed -VETERINARY RECEPTIONIST consult appreciated -CA125 elevated -If pt continues to bleed despite holding eliquis, would need D&C or hysteroscopy -Vitamin K 10 mg SQ daily PRN -will monitor daily INR -INR goal close to 1.5 Problems reviewed: Yes Code(s): N93.9 - ABNORMAL UTERINE AND VAGINAL BLEEDING, UNSPECIFIED (8) Bacteremia Assessment/Plan: -ID consult -IV abx -Afebrile -Awaiting final cultures Problems reviewed: Yes Code(s): R78.81 - BACTEREMIA (9) UTI (urinary tract infection) Assessment/Plan: -UC: ESBL -ID on board -IV abx as per ID if indicated Problems reviewed: Yes Code(s): N39.0 - URINARY TRACT INFECTION, SITE NOT SPECIFIED
[2020-03-17] MEDS: RIFAXIMIN 550 MG TABLET (UD) PO SCH ×2 (09:44→21:51)
[2020-03-17] MEDS: SPIRONOLACTONE 25 MG TABLET PO SCH ×3 (09:44→21:51)
[2020-03-17] MEDS: LACTULOSE 20 GM/30 ML UDC (FOR ORAL USE ONLY) PO SCH ×2 (09:44→21:51)
[2020-03-17] MEDS: metoPROLOL SUCCINATE 25 MG TAB.SR.24H (FP) PO SCH (09:44)
--- NOTE | 2020-03-17 10:20 | PN ---
Progress Note (short form) - Note Progress Note: PULMONARY States breathing is improving. Leg swelling also improving. No chest pain, cough, fevers. Vital Signs Period Temp Pulse Resp BP Sys/Patel Pulse Ox Last 24 Hr 97.7 F-98.2 F 66-84 17-20 100-109/50-59 97-98 Gen: NAD at rest Heart: RRR Lung: decreased breath sounds at the bases Abd: soft, nontender Ext: + edema CBC, BMP 03/17/20 06:56 03/17/20 06:56 Active Medications Acetaminophen (Tylenol -) 650 mg PO Q6H PRN PRN Reason: FEVER Artificial Tears (Artificial Tears) 1 drop OU BID PRN PRN Reason: DRY EYES Docusate Sodium (Colace -) 100 mg PO BID PRN PRN Reason: CONSTIPATION Last Admin: 03/07/20 09:28 Dose: 100 mg Documented by: Furosemide (Lasix -) 40 mg PO BID@0600,1400 [facility] Last Admin: 03/17/20 06:18 Dose: 40 mg Documented by: Ampicillin Sodium/Sulbactam (Sodium 1.5 gm/ Sodium Chloride) 100 mls @ 200 mls/hr IVPB Q8H-IV [facility] Last Admin: 03/17/20 09:43 Dose: 200 mls/hr Documented by: Vancomycin HCl (Vancomycin (Pre-Docked)) 1,000 mg in 250 mls @ 166.667 mls/hr IVPB Q24H [facility]; Protocol Last Admin: 03/16/20 15:29 Dose: 166.667 mls/hr Documented by: Lactulose (Cephulac (Oral Use)) 20 gm PO BID [facility] Last Admin: 03/17/20 09:44 Dose: Not Given Documented by: Metoprolol Succinate (Toprol Xl -) 12.5 mg PO DAILY [facility] Last Admin: 03/17/20 09:44 Dose: Not Given Documented by: Rifaximin (Xifaxan -) 550 mg PO BID [facility] Last Admin: 03/17/20 09:44 Dose: 550 mg Documented by: Spironolactone (Aldactone -) 50 mg PO BID [facility] Last Admin: 03/17/20 09:44 Dose: Not Given Documented by: Tramadol HCl (Ultram -) 50 mg PO Q8H PRN PRN Reason: PAIN LEVEL 6-10 A/P Volume Overload Ascites CKD Liver Cirrhosis Atrial Fibrillation LV Diastolic Dysfunction HTN Anemia Thrombocytopenia - continue lasix, aldactone - monitor urine output, creatinine - daily weights - O2 as needed - rate controlled - holding anticoagulation
[2020-03-17 13:01] VITALS: BMI 36.6
[2020-03-17] MEDS: VANCOMYCIN 1 GRAM (PRE-DOCKED) 1,000 MG/250 ML BAG IVPB SCH (13:06)
--- NOTE | 2020-03-17 14:20 | PN ---
Progress Note, Physician History of Present Illness: AWAKE, OOB IN CHAIR NO RECURRENT RIGORS NO FEVER REPORTS VAGINAL BLEEDING IMPROVED NO C/O ABDOMINAL OR PELVIC PAIN NO DYSURIA - Current Medication List Current Medications: Active Medications Acetaminophen (Tylenol -) 650 mg PO Q6H PRN PRN Reason: FEVER Artificial Tears (Artificial Tears) 1 drop OU BID PRN PRN Reason: DRY EYES Docusate Sodium (Colace -) 100 mg PO BID PRN PRN Reason: CONSTIPATION Last Admin: 03/07/20 09:28 Dose: 100 mg Documented by: Furosemide (Lasix -) 40 mg PO BID@0600,1400 [facility] Last Admin: 03/17/20 13:22 Dose: 40 mg Documented by: Ampicillin Sodium/Sulbactam (Sodium 1.5 gm/ Sodium Chloride) 100 mls @ 200 mls/hr IVPB Q8H-IV [facility] Last Admin: 03/17/20 09:43 Dose: 200 mls/hr Documented by: Vancomycin HCl (Vancomycin (Pre-Docked)) 1,000 mg in 250 mls @ 166.667 mls/hr IVPB Q24H [facility]; Protocol Last Admin: 03/17/20 13:06 Dose: Not Given Documented by: Lactulose (Cephulac (Oral Use)) 20 gm PO BID [facility] Last Admin: 03/17/20 09:44 Dose: Not Given Documented by: Metoprolol Succinate (Toprol Xl -) 12.5 mg PO DAILY [facility] Last Admin: 03/17/20 09:44 Dose: Not Given Documented by: Rifaximin (Xifaxan -) 550 mg PO BID [facility] Last Admin: 03/17/20 09:44 Dose: 550 mg Documented by: Spironolactone (Aldactone -) 50 mg PO BID [facility] Last Admin: 03/17/20 09:44 Dose: Not Given Documented by: Tramadol HCl (Ultram -) 50 mg PO Q8H PRN PRN Reason: PAIN LEVEL 6-10 - Objective Vital Signs: Vital Signs Temperature 98 F 03/17/20 13:20 Pulse Rate 81 03/17/20 13:20 Respiratory Rate 19 03/17/20 13:20 Blood Pressure 101/60 03/17/20 13:20 O2 Sat by Pulse Oximetry (%) 100 03/17/20 13:20 Constitutional: Yes: No Distress, Obese Eyes: Yes: Conjunctiva Clear Cardiovascular: Yes: Regular Rate and Rhythm, S1, S2 Respiratory: Yes: CTA Bilaterally Gastrointestinal: Yes: Normal Bowel Sounds, Soft, Abdomen, Obese. No: Tenderness Labs: CBC, BMP 03/17/20 06:56 03/17/20 06:56 INR, PTT INR 1.66 (0.83-1.09) H 03/17/20 06:56 Fibrinogen 121.0 mg/dL (238-498) L 03/15/20 16:20 Assessment/Plan GRAM POS SISI BACTEREMIA ? SOURCE AWAIT IDENTIFICATION SPECIMEN SENT TO [facility] REPEAT BC NO GROWTH WILL EMPIRICALLY COVER FOR LISTERIA UNASYN/ VANCOMYCIN VANCOMYCIN LEVEL NOTED ECHO NO VEGETATIONS + URINE C/S ESBL PROBABLE COLONIZER NO TX ADVISED
[2020-03-17] MEDS ORDERED: ALBUMIN HUMAN 25% 12.5 GM/50 ML VIAL IVPB ONE (17:36)
--- NOTE | 2020-03-17 17:36 | PN ---
Progress Note, Physician History of Present Illness: Pt seen and examined at bedside. She denies shortness of breath. Edema is wore today. - Current Medication List Current Medications: Active Medications Acetaminophen (Tylenol -) 650 mg PO Q6H PRN PRN Reason: FEVER Artificial Tears (Artificial Tears) 1 drop OU BID PRN PRN Reason: DRY EYES Docusate Sodium (Colace -) 100 mg PO BID PRN PRN Reason: CONSTIPATION Last Admin: 03/07/20 09:28 Dose: 100 mg Documented by: Furosemide (Lasix -) 40 mg PO BID@0600,1400 [facility] Last Admin: 03/17/20 13:22 Dose: 40 mg Documented by: Ampicillin Sodium/Sulbactam (Sodium 1.5 gm/ Sodium Chloride) 100 mls @ 200 mls/hr IVPB Q8H-IV [facility] Last Admin: 03/17/20 17:14 Dose: 200 mls/hr Documented by: Vancomycin HCl (Vancomycin (Pre-Docked)) 1,000 mg in 250 mls @ 166.667 mls/hr IVPB Q24H [facility]; Protocol Last Admin: 03/17/20 13:06 Dose: Not Given Documented by: Lactulose (Cephulac (Oral Use)) 20 gm PO BID [facility] Last Admin: 03/17/20 09:44 Dose: Not Given Documented by: Metoprolol Succinate (Toprol Xl -) 12.5 mg PO DAILY [facility] Last Admin: 03/17/20 09:44 Dose: Not Given Documented by: Rifaximin (Xifaxan -) 550 mg PO BID [facility] Last Admin: 03/17/20 09:44 Dose: 550 mg Documented by: Spironolactone (Aldactone -) 50 mg PO BID [facility] Last Admin: 03/17/20 14:28 Dose: 50 mg Documented by: Tramadol HCl (Ultram -) 50 mg PO Q8H PRN PRN Reason: PAIN LEVEL 6-10 - Objective Vital Signs: Vital Signs Temperature 98 F 03/17/20 13:20 Pulse Rate 81 03/17/20 13:20 Respiratory Rate 19 03/17/20 13:20 Blood Pressure 101/60 03/17/20 13:20 O2 Sat by Pulse Oximetry (%) 100 03/17/20 13:20 Constitutional: Yes: Calm Eyes: Yes: Conjunctiva Clear HENT: Yes: Atraumatic Neck: Yes: Supple Cardiovascular: Yes: S1, S2 Respiratory: Yes: CTA Bilaterally Gastrointestinal: Yes: Soft, Ascites Genitourinary: Yes: WNL Edema: Yes Edema: LLE: 2+, RLE: 2+ Neurological: Yes: Oriented Psychiatric: Yes: Oriented Labs: CBC, BMP 03/17/20 06:56 03/17/20 06:56 INR, PTT INR 1.66 (0.83-1.09) H 03/17/20 06:56 Fibrinogen 121.0 mg/dL (238-498) L 03/15/20 16:20 Problem List - Problems (1) CHF (congestive heart failure) Code(s): I50.9 - HEART FAILURE, UNSPECIFIED Qualifiers: Heart failure type: unspecified Heart failure chronicity: unspecified Qualified Code(s): I50.9 - Heart failure, unspecified (2) Lactic acidosis Code(s): E87.2 - ACIDOSIS Assessment/Plan Current Medications Generic Name Dose Route Start Last Admin Trade Name Freq PRN Reason Stop Dose Admin Acetaminophen 650 mg 03/04/20 20:04 Tylenol - PO Q6H PRN FEVER Artificial Tears 1 drop 03/04/20 20:04 Artificial Tears OU BID PRN DRY EYES Docusate Sodium 100 mg 03/04/20 20:04 03/07/20 09:28 Colace - PO 100 mg BID PRN Administration CONSTIPATION Furosemide 40 mg 03/16/20 06:00 03/17/20 13:22 Lasix - PO 40 mg BID@0600,1400 [facility] Administration Ampicillin Sodium/Sulbactam 100 mls @ 200 mls/hr 03/11/20 15:15 03/17/20 17:14 Sodium 1.5 gm/ Sodium Chloride IVPB 200 mls/hr Q8H-IV [facility] Administration Vancomycin HCl 1,000 mg in 250 mls @ 166.667 mls/hr 03/13/20 13:15 03/17/20 13:06 Vancomycin (Pre-Docked) IVPB Not Given Q24H [facility] Protocol Lactulose 20 gm 03/13/20 22:00 03/17/20 09:44 Cephulac (Oral Use) PO Not Given BID [facility] Metoprolol Succinate 12.5 mg 03/06/20 11:03 07/27/20 09:44 Toprol Xl - PO Not Given DAILY [facility] Rifaximin 550 mg 03/04/20 22:00 03/17/20 09:44 Xifaxan - PO 550 mg BID [facility] Administration Spironolactone 50 mg 03/06/20 22:00 03/17/20 14:28 Aldactone - PO 50 mg BID [facility] Administration Tramadol HCl 50 mg 03/11/20 10:35 Ultram - PO Q8H PRN PAIN LEVEL 6-10 Impression 1. CKD 2. ascites 3. liver cirrhosis 4. ileus 5. microscopic hematuria 6. fluid overload 7. a-fib 8. hyperkalemia 9. vaginal spotting Plan - cont aldactone - increase lasix to 60 bid - monitor weights and volume status - renal function stable - cont lactulose and rifiximin
[2020-03-18] MEDS ORDERED: SODIUM CHLORIDE 100 ML IVPB ONE ×3 (00:46→16:35)
[2020-03-18] MEDS ORDERED: AMPICILLIN NA/SULBACTAM NA 1.5 GM VIAL ONE ×3 (00:46→16:35)
[2020-03-18] MEDS: AMPICILLIN NA/SULBACTAM NA 1.5 GM in SODIUM CHLORIDE 100 ML IVPB SCH ×3 (01:02→17:00)
[2020-03-18] MEDS: FUROSEMIDE 40 MG TABLET (FP) PO SCH ×2 (05:09→12:59)
--- NOTE | 2020-03-18 05:31 | PN.HO ---
Progress Note (short form) - Note Progress Note: PAtient seen zaria lara still with vaginal bleeding. Improved but present AFVSS Cor: RSR, No murmurs, No gallops Lungs: Clear to P&A Abd: Soft, Normal bowel sounds, No organomegaly Ext:No significant edema LAbs/Meds reviewed A/P Pt. is a 74 y.o. F w/ PMHx. of Cirrhosis(KING w/ ascites and Hx. of HE), HFpEF, Afib(on reduced? dose Eliquis), CKD (Stage 3), Venous insufficiency, HTN, Anemia, and Thrombocytopenia presents for increased abdominal distention, Rt. flank pain. We have been called to assess patient for anemia. normocytic/normochromic anemia of chronic kidney diseased due to CKD/ cirrhosis + ongoing vaginal bleeding iron studies suggestive of chronic disease Reverse AG ratio : ? liver disease. polyclonal hypergammaglobulineia vaginal bleeding -- transvaginal U/S shows no uterine masses but endometrial cavity fluid will need [employer] eval [place] [address] a/p 02/18--large vol. ascites/calcified fibroids/cirrhosis/splenomegaly fluid cytology 01/29/20 --negative for malignant cells Thrombocytopenia--- due to cirrhosis. Hypofibrinogenemia-- transfuse 10 units cryoprecipitate for fibrinogen <100 Elevated INR-recent eliquis +/- component of vit. k deficiency holding eliquis May need FFP Given underlying cirrhosis/coagulopathy [employer] team deemed her too high risk for procedures
[2020-03-18 07:27] LABS: BASO % 0.8 % (0-2.0); EOS % 3.4 % (0-4.5); HEMATOCRIT 22.3 % (32.4-45.2); HEMOGLOBIN 7.3 GM/dL (10.7-15.3); LYMPH % 21.5 % (8-40); MCH 30.5 pg (25.7-33.7); MCHC 32.6 g/dl (32.0-36.0); MEAN CELL VOLUME 93.4 fl (80-96); MONO % 9.8 % (3.8-10.2); NEUT % 64.5 % (42.8-82.8); PLATELET COUNT 67 K/MM3 (134-434); RBC 2.39 M/mm3 (3.60-5.2); RDW 18.1 % (11.6-15.6); WHITE BLOOD COUNT 6.2 K/mm3 (4.0-10.0)
[2020-03-18 07:35] LABS: INR 1.65 (0.83-1.09); PROTHROMBIN TIME (PATIENT) 19.6 SEC (9.7-13.0)
[2020-03-18 07:38] LABS: ACTIVATED PTT 42.6 SECONDS (25.2-36.5)
[2020-03-18 08:01] LABS: ALBUMIN 2.2 g/dl (3.4-5.0); BILIRUBIN,TOTAL 2.1 mg/dL (0.2-1); BLOOD UREA NITROGEN 15.8 mg/dL (7-18); CALCIUM 8.2 mg/dL (8.5-10.1); CREATININE 1.6 mg/dL (0.55-1.3); POTASSIUM 4.3 mmol/L (3.5-5.1); TOT PROT 6.5 g/dl (6.4-8.2)
[2020-03-18] MEDS: SPIRONOLACTONE 25 MG TABLET PO SCH ×2 (09:15→21:30)
[2020-03-18] MEDS: metoPROLOL SUCCINATE 25 MG TAB.SR.24H (FP) PO SCH (09:16)
[2020-03-18] MEDS: LACTULOSE 20 GM/30 ML UDC (FOR ORAL USE ONLY) PO SCH ×2 (09:16→21:30)
[2020-03-18] MEDS: RIFAXIMIN 550 MG TABLET (UD) PO SCH ×2 (09:16→21:30)
--- NOTE | 2020-03-18 10:05 | PN ---
Progress Note (short form) - Note Progress Note: PULMONARY Short of breath this AM but since resolved. Leg swelling also improving. No chest pain, cough, fevers. Vital Signs Period Temp Pulse Resp BP Sys/Patel Pulse Ox Last 24 Hr 97.8 F-98.3 F 78-89 18-20 90-102/44-65 97-100 Gen: NAD at rest Heart: RRR Lung: decreased breath sounds at the bases Abd: soft, nontender Ext: + edema CBC, BMP 03/18/20 06:35 03/18/20 06:35 Active Medications Acetaminophen (Tylenol -) 650 mg PO Q6H PRN PRN Reason: FEVER Artificial Tears (Artificial Tears) 1 drop OU BID PRN PRN Reason: DRY EYES Docusate Sodium (Colace -) 100 mg PO BID PRN PRN Reason: CONSTIPATION Last Admin: 03/07/20 09:28 Dose: 100 mg Documented by: Furosemide (Lasix -) 60 mg PO BID@0600,1400 [facility] Last Admin: 03/18/20 05:09 Dose: 60 mg Documented by: Ampicillin Sodium/Sulbactam (Sodium 1.5 gm/ Sodium Chloride) 100 mls @ 200 mls/hr IVPB Q8H-IV [facility] Last Admin: 03/18/20 09:18 Dose: 200 mls/hr Documented by: Vancomycin HCl (Vancomycin (Pre-Docked)) 1,000 mg in 250 mls @ 166.667 mls/hr IVPB Q24H [facility]; Protocol Last Admin: 03/17/20 13:06 Dose: Not Given Documented by: Lactulose (Cephulac (Oral Use)) 20 gm PO BID [facility] Last Admin: 03/18/20 09:16 Dose: Not Given Documented by: Metoprolol Succinate (Toprol Xl -) 12.5 mg PO DAILY [facility] Last Admin: 03/18/20 09:16 Dose: 12.5 mg Documented by: Rifaximin (Xifaxan -) 550 mg PO BID [facility] Last Admin: 03/18/20 09:16 Dose: 550 mg Documented by: Spironolactone (Aldactone -) 50 mg PO BID [facility] Last Admin: 03/18/20 09:15 Dose: Not Given Documented by: Tramadol HCl (Ultram -) 50 mg PO Q8H PRN PRN Reason: PAIN LEVEL 6-10 A/P Volume Overload Ascites CKD Liver Cirrhosis Atrial Fibrillation LV Diastolic Dysfunction HTN Anemia Thrombocytopenia - continue lasix, aldactone - monitor urine output, creatinine - daily weights - O2 as needed - rate controlled - holding anticoagulation
[2020-03-18] MEDS: VANCOMYCIN 1 GRAM (PRE-DOCKED) 1,000 MG/250 ML BAG IVPB SCH (12:32)
--- NOTE | 2020-03-18 15:07 | PN ---
Progress Note, Physician History of Present Illness: AWAKE, OOB NO RECURRENT RIGORS NO FEVER BLOOD ISOLATE RECEIVED BY [facility] AWAIT IDENTIFICATION - Current Medication List Current Medications: Active Medications Acetaminophen (Tylenol -) 650 mg PO Q6H PRN PRN Reason: FEVER Artificial Tears (Artificial Tears) 1 drop OU BID PRN PRN Reason: DRY EYES Docusate Sodium (Colace -) 100 mg PO BID PRN PRN Reason: CONSTIPATION Last Admin: 03/07/20 09:28 Dose: 100 mg Documented by: Furosemide (Lasix -) 60 mg PO BID@0600,1400 [facility] Last Admin: 03/18/20 12:59 Dose: 60 mg Documented by: Ampicillin Sodium/Sulbactam (Sodium 1.5 gm/ Sodium Chloride) 100 mls @ 200 mls/hr IVPB Q8H-IV [facility] Last Admin: 03/18/20 09:18 Dose: 200 mls/hr Documented by: Vancomycin HCl (Vancomycin (Pre-Docked)) 1,000 mg in 250 mls @ 166.667 mls/hr IVPB Q24H [facility]; Protocol Last Admin: 03/18/20 12:32 Dose: 166.667 mls/hr Documented by: Lactulose (Cephulac (Oral Use)) 20 gm PO BID [facility] Last Admin: 03/18/20 09:16 Dose: Not Given Documented by: Metoprolol Succinate (Toprol Xl -) 12.5 mg PO DAILY [facility] Last Admin: 03/18/20 09:16 Dose: 12.5 mg Documented by: Rifaximin (Xifaxan -) 550 mg PO BID [facility] Last Admin: 03/18/20 09:16 Dose: 550 mg Documented by: Spironolactone (Aldactone -) 50 mg PO BID [facility] Last Admin: 03/18/20 09:15 Dose: Not Given Documented by: Tramadol HCl (Ultram -) 50 mg PO Q8H PRN PRN Reason: PAIN LEVEL 6-10 - Objective Vital Signs: Vital Signs Temperature 98.6 F 03/18/20 14:28 Pulse Rate 78 03/18/20 14:28 Respiratory Rate 18 03/18/20 14:28 Blood Pressure 98/48 L 03/18/20 14:28 O2 Sat by Pulse Oximetry (%) 97 03/18/20 09:00 Labs: CBC, BMP 03/18/20 06:35 03/18/20 06:35 INR, PTT INR 1.65 (0.83-1.09) H 03/18/20 06:35 Fibrinogen 105.0 mg/dL (238-498) L 03/18/20 06:35 Assessment/Plan GRAM POS SISI BACTEREMIA ? SOURCE AWAIT IDENTIFICATION SPECIMEN SENT TO [facility] REPEAT BC NO GROWTH CONTINUE UNASYN/ VANCOMYCIN VANCOMYCIN LEVEL NOTED ECHO NO VEGETATIONS + URINE C/S ESBL PROBABLE COLONIZER NO TX ADVISED
--- NOTE | 2020-03-18 15:49 | PN ---
Progress Note, Physician Chief Complaint: Ascites Cryptogenic cirrhosis CKD History of Present Illness: NAD, sitting in a chair BC + bacillus species, awaiting [place] results on final culture UC + ESBL Still has some vaginal bleeding, Holding H/H Last Eliquis dose was 03/11/20 @ 2100 Has been getting Vit K SQ 10 mg daily, last dose 03/16/20 -Plt 67 today INR 1.67 today Seen by [employer]- no surgical intervention recommended at this time Hg-7.3 - Current Medication List Current Medications: Active Medications Acetaminophen (Tylenol -) 650 mg PO Q6H PRN PRN Reason: FEVER Artificial Tears (Artificial Tears) 1 drop OU BID PRN PRN Reason: DRY EYES Docusate Sodium (Colace -) 100 mg PO BID PRN PRN Reason: CONSTIPATION Last Admin: 03/07/20 09:28 Dose: 100 mg Documented by: Furosemide (Lasix -) 60 mg PO BID@0600,1400 [facility] Last Admin: 03/18/20 12:59 Dose: 60 mg Documented by: Ampicillin Sodium/Sulbactam (Sodium 1.5 gm/ Sodium Chloride) 100 mls @ 200 mls/hr IVPB Q8H-IV [facility] Last Admin: 03/18/20 09:18 Dose: 200 mls/hr Documented by: Vancomycin HCl (Vancomycin (Pre-Docked)) 1,000 mg in 250 mls @ 166.667 mls/hr IVPB Q24H [facility]; Protocol Last Admin: 03/18/20 12:32 Dose: 166.667 mls/hr Documented by: Lactulose (Cephulac (Oral Use)) 20 gm PO BID [facility] Last Admin: 03/18/20 09:16 Dose: Not Given Documented by: Metoprolol Succinate (Toprol Xl -) 12.5 mg PO DAILY [facility] Last Admin: 03/18/20 09:16 Dose: 12.5 mg Documented by: Rifaximin (Xifaxan -) 550 mg PO BID [facility] Last Admin: 03/18/20 09:16 Dose: 550 mg Documented by: Spironolactone (Aldactone -) 50 mg PO BID [facility] Last Admin: 03/18/20 09:15 Dose: Not Given Documented by: Tramadol HCl (Ultram -) 50 mg PO Q8H PRN PRN Reason: PAIN LEVEL 6-10 - Objective Vital Signs: Vital Signs Temperature 98.6 F 03/18/20 14:28 Pulse Rate 78 03/18/20 14:28 Respiratory Rate 18 03/18/20 14:28 Blood Pressure 98/48 L 03/18/20 14:28 O2 Sat by Pulse Oximetry (%) 97 03/18/20 09:00 Constitutional: Yes: Well Nourished, No Distress, Calm, Obese Cardiovascular: Yes: Regular Rate and Rhythm Respiratory: Yes: Regular, CTA Bilaterally Gastrointestinal: Yes: Normal Bowel Sounds, Soft, Abdomen, Obese, Ascites (RLQ) Genitourinary: Yes: WNL Musculoskeletal: Yes: Muscle Weakness Extremities: Yes: WNL Edema: Yes Edema: LLE: 2+, RLE: 2+ Peripheral Pulses WNL: Yes Neurological: Yes: Alert, Oriented Psychiatric: Yes: Alert, Oriented Labs: CBC, BMP 03/18/20 06:35 03/18/20 06:35 INR, PTT INR 1.65 (0.83-1.09) H 03/18/20 06:35 Fibrinogen 105.0 mg/dL (238-498) L 03/18/20 06:35 Problem List - Problems (1) Afib Assessment/Plan: -Chronic, rate controlled -Hold Eliquis due to vaginal bleed Problems reviewed: Yes Code(s): I48.91 - UNSPECIFIED ATRIAL FIBRILLATION (2) Anemia Assessment/Plan: -acute vs Chronic -2/2 to chronic liver disease -+ Vaginal bleed-mild now -[employer] consult appreciated -CA 125 elevated -Monitor trend -Transfuse only if Hg<7.0 to avoid fluid overload -Vitamin K as needed to keep INR close to 1.5 Problems reviewed: Yes Code(s): D64.9 - ANEMIA, UNSPECIFIED (3) CKD (chronic kidney disease) Assessment/Plan: -nephrology consult -Continue furosemide 40 mg PO BID -Continue Spironolactone 50 mg po daily Problems reviewed: Yes Code(s): N18.9 - CHRONIC KIDNEY DISEASE, UNSPECIFIED (4) Cryptogenic cirrhosis Assessment/Plan: -GI consult -Continue lactulose + rifaxamin Problems reviewed: Yes Code(s): K74.69 - OTHER CIRRHOSIS OF LIVER (5) Edema of abdominal wall Assessment/Plan: -Continue Furosemide 40 mg IV BID -Continue spironolactone Problems reviewed: Yes Code(s): R60.0 - LOCALIZED EDEMA (6) Lactic acidosis Assessment/Plan: -chronic -Repeat CXR-negative -Cultures: Microbiology 03/11/20 16:10 Blood - Peripheral Venous Blood Culture - Preliminary NO GROWTH OBTAINED AFTER 48 HOURS, INCUBATION TO CONTINUE FOR 3 DAYS. 03/11/20 16:40 Blood - Peripheral Venous Blood Culture - Preliminary NO GROWTH OBTAINED AFTER 48 HOURS, INCUBATION TO CONTINUE FOR 3 DAYS. 03/10/20 16:15 Urine - Urine Flores Urine Culture - Final Klebsiella Pneumoniae - Esbl 03/10/20 06:20 Blood - Peripheral Venous Blood Culture - Preliminary Bacillus Species, Not Antracis 03/10/20 06:15 Blood - Peripheral Venous Blood Culture - Preliminary Bacillus Species, Not Antracis 03/02/20 13:54 Urine - Urine Clean Catch Urine Culture - Final NO GROWTH OBTAINED Problems reviewed: Yes Code(s): E87.2 - ACIDOSIS (7) Vaginal bleeding Assessment/Plan: -Transvaginal U/S reviewed -[employer] consult appreciated -CA125 elevated -If pt continues to bleed despite holding eliquis, would need D&C or hysteroscopy -Vitamin K 10 mg SQ today -will monitor daily INR -INR goal close to 1.5 Problems reviewed: Yes Code(s): N93.9 - ABNORMAL UTERINE AND VAGINAL BLEEDING, UNSPECIFIED (8) Bacteremia Assessment/Plan: -ID consult -IV abx -Afebrile -Awaiting final cultures -May need a PICC line Problems reviewed: Yes Code(s): R78.81 - BACTEREMIA (9) UTI (urinary tract infection) Assessment/Plan: -UC: ESBL -ID on board -IV abx as per ID if indicated Problems reviewed: Yes Code(s): N39.0 - URINARY TRACT INFECTION, SITE NOT SPECIFIED Assessment/Plan See problem list Spoke to son Jefferson about pt updates
--- NOTE | 2020-03-18 17:25 | PN ---
Progress Note, Physician History of Present Illness: Pt seen and examined at bedside. She is awake and alert. She denies shortness of breath. She feels edema is a little better today. - Current Medication List Current Medications: Active Medications Acetaminophen (Tylenol -) 650 mg PO Q6H PRN PRN Reason: FEVER Artificial Tears (Artificial Tears) 1 drop OU BID PRN PRN Reason: DRY EYES Docusate Sodium (Colace -) 100 mg PO BID PRN PRN Reason: CONSTIPATION Last Admin: 03/07/20 09:28 Dose: 100 mg Documented by: Furosemide (Lasix -) 60 mg PO BID@0600,1400 [facility] Last Admin: 03/18/20 12:59 Dose: 60 mg Documented by: Ampicillin Sodium/Sulbactam (Sodium 1.5 gm/ Sodium Chloride) 100 mls @ 200 mls/hr IVPB Q8H-IV [facility] Last Admin: 03/18/20 17:00 Dose: 200 mls/hr Documented by: Vancomycin HCl (Vancomycin (Pre-Docked)) 1,000 mg in 250 mls @ 166.667 mls/hr IVPB Q24H [facility]; Protocol Last Admin: 03/18/20 12:32 Dose: 166.667 mls/hr Documented by: Lactulose (Cephulac (Oral Use)) 20 gm PO BID [facility] Last Admin: 03/18/20 09:16 Dose: Not Given Documented by: Metoprolol Succinate (Toprol Xl -) 12.5 mg PO DAILY [facility] Last Admin: 03/18/20 09:16 Dose: 12.5 mg Documented by: Rifaximin (Xifaxan -) 550 mg PO BID [facility] Last Admin: 03/18/20 09:16 Dose: 550 mg Documented by: Spironolactone (Aldactone -) 50 mg PO BID [facility] Last Admin: 03/18/20 09:15 Dose: Not Given Documented by: Tramadol HCl (Ultram -) 50 mg PO Q8H PRN PRN Reason: PAIN LEVEL 6-10 - Objective Vital Signs: Vital Signs Temperature 98.6 F 03/18/20 14:28 Pulse Rate 78 03/18/20 14:28 Respiratory Rate 18 03/18/20 14:28 Blood Pressure 98/48 L 03/18/20 14:28 O2 Sat by Pulse Oximetry (%) 97 03/18/20 09:00 Constitutional: Yes: Calm Eyes: Yes: Conjunctiva Clear HENT: Yes: Atraumatic Neck: Yes: Supple Cardiovascular: Yes: S1, S2 Respiratory: Yes: CTA Bilaterally Gastrointestinal: Yes: Soft, Abdomen, Obese Genitourinary: Yes: WNL Musculoskeletal: Yes: WNL Edema: Yes Edema: LLE: 2+, RLE: 2+ Integumentary: Yes: WNL Neurological: Yes: Oriented Psychiatric: Yes: Oriented Labs: CBC, BMP 03/18/20 06:35 03/18/20 06:35 INR, PTT INR 1.65 (0.83-1.09) H 03/18/20 06:35 Fibrinogen 105.0 mg/dL (238-498) L 03/18/20 06:35 Problem List - Problems (1) CHF (congestive heart failure) Code(s): I50.9 - HEART FAILURE, UNSPECIFIED Qualifiers: Heart failure type: unspecified Heart failure chronicity: unspecified Qualified Code(s): I50.9 - Heart failure, unspecified (2) Lactic acidosis Code(s): E87.2 - ACIDOSIS Assessment/Plan Current Medications Generic Name Dose Route Start Last Admin Trade Name Freq PRN Reason Stop Dose Admin Acetaminophen 650 mg 03/04/20 20:04 Tylenol - PO Q6H PRN FEVER Artificial Tears 1 drop 03/04/20 20:04 Artificial Tears OU BID PRN DRY EYES Docusate Sodium 100 mg 03/04/20 20:04 03/07/20 09:28 Colace - PO 100 mg BID PRN Administration CONSTIPATION Furosemide 40 mg 03/16/20 06:00 03/17/20 13:22 Lasix - PO 40 mg BID@0600,1400 [facility] Administration Ampicillin Sodium/Sulbactam 100 mls @ 200 mls/hr 03/11/20 15:15 03/17/20 17:14 Sodium 1.5 gm/ Sodium Chloride IVPB 200 mls/hr Q8H-IV [facility] Administration Vancomycin HCl 1,000 mg in 250 mls @ 166.667 mls/hr 03/13/20 13:15 03/17/20 13:06 Vancomycin (Pre-Docked) IVPB Not Given Q24H [facility] Protocol Lactulose 20 gm 03/13/20 22:00 03/17/20 09:44 Cephulac (Oral Use) PO Not Given BID [facility] Metoprolol Succinate 12.5 mg 03/06/20 11:03 03/17/20 09:44 Toprol Xl - PO Not Given DAILY [facility] Rifaximin 550 mg 03/04/20 22:00 03/17/20 09:44 Xifaxan - PO 550 mg BID [facility] Administration Spironolactone 50 mg 03/06/20 22:00 03/17/20 14:28 Aldactone - PO 50 mg BID [facility] Administration Tramadol HCl 50 mg 03/11/20 10:35 Ultram - PO Q8H PRN PAIN LEVEL 6-10 Impression 1. CKD 2. ascites 3. liver cirrhosis 4. ileus 5. microscopic hematuria 6. fluid overload 7. a-fib 8. hyperkalemia 9. vaginal spotting Plan - cont lasix - cont aldactone - check weights - volume status improving - renal function stable - cont lactulose and rifiximin
[2020-03-18] MEDS ORDERED: PHYTONADIONE 10 MG/1 ML AMP SQ ONE (17:33)
--- NOTE | 2020-03-18 17:42 | PN.GI ---
GI Progress Note Subjective: GI NOte: Above note appreciated. Vaginal bleeding subsiding. No interventions planned. Weight stuck at 207 but abdominal distension is resolved and leg edema is markedly improved. Discharged postponed by gm positive bacteremia of unknown source. - Objective Vital Signs: Vital Signs Temperature 98.6 F 03/18/20 14:28 Pulse Rate 78 03/18/20 14:28 Respiratory Rate 18 03/18/20 14:28 Blood Pressure 98/48 L 03/18/20 14:28 O2 Sat by Pulse Oximetry (%) 97 03/18/20 09:00 Selected Entries 03/18/20 05:47 Weight 207 lb 11.2 oz Laboratory Tests 03/13/20 03/14/20 03/15/20 06:45 06:37 16:20 Hgb 7.7 L 7.0 L Plt Count BUN Creatinine Total Bilirubin 2.1 H Alkaline Phosphatase 85 03/16/20 03/18/20 03/18/20 06:03 06:35 06:35 Hgb 7.3 L Plt Count 67 L BUN 15.8 Creatinine 1.6 H Total Bilirubin 1.5 H 2.1 H Alkaline Phosphatase 122 H 103 Constitutional: Calm ...Auscultate: Yes: Normoactive Bowel Sounds ...Palpate: Yes: Soft, Other (nontender) Labs: CBC, BMP 03/18/20 06:35 03/18/20 06:35 INR, PTT INR 1.65 (0.83-1.09) H 03/18/20 06:35 Fibrinogen 105.0 mg/dL (238-498) L 03/18/20 06:35 Assessment/Plan Impression: - Vaginal, not rectal bleeding - Cirrhosis secondary to KING with hepatic encephalopathy, thrombocytopenia, portal vein thrombosis and ascites that is responding oral diuretics while in the hospital - Gram pos bacteremia ? origin Plan: - Discussed need to establish followup at the [facility]. Her son has the number to make an appointment - Continue diuretic regimen, lactulose and xifaxan - Antibiotics as per ID Problem List - Problems (1) Vaginal bleeding Code(s): N93.9 - ABNORMAL UTERINE AND VAGINAL BLEEDING, UNSPECIFIED (2) 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 steatohepatitis) Code(s): K75.81 - NONALCOHOLIC STEATOHEPATITIS (KING); K74.60 - UNSPECIFIED CIRRHOSIS OF LIVER (3) Portal vein thrombosis Code(s): I81 - PORTAL VEIN THROMBOSIS (4) Thrombocytopenia Code(s): D69.6 - THROMBOCYTOPENIA, UNSPECIFIED (5) Hepatic encephalopathy Code(s): K72.90 - HEPATIC FAILURE, UNSPECIFIED WITHOUT COMA (6) Edema Code(s): R60.9 - EDEMA, UNSPECIFIED (7) CKD (chronic kidney disease) Code(s): N18.9 - CHRONIC KIDNEY DISEASE, UNSPECIFIED (8) Cirrhosis of liver with ascites Code(s): K74.60 - UNSPECIFIED CIRRHOSIS OF LIVER; R18.8 - OTHER ASCITES (9) Edema of abdominal wall Code(s): R60.0 - LOCALIZED EDEMA (10) Paroxysmal atrial fibrillation with rapid ventricular response Code(s): I48.0 - PAROXYSMAL ATRIAL FIBRILLATION
[2020-03-19] MEDS ORDERED: AMPICILLIN NA/SULBACTAM NA 1.5 GM VIAL ONE ×2 (01:14→08:50)
[2020-03-19] MEDS ORDERED: SODIUM CHLORIDE 100 ML IVPB ONE ×2 (01:14→08:50)
[2020-03-19] MEDS: AMPICILLIN NA/SULBACTAM NA 1.5 GM in SODIUM CHLORIDE 100 ML IVPB SCH ×3 (01:20→17:08)
[2020-03-19] MEDS: FUROSEMIDE 40 MG TABLET (FP) PO SCH ×2 (05:27→14:02)
[2020-03-19 08:00] LABS: INR 1.63 (0.83-1.09); PROTHROMBIN TIME (PATIENT) 19.3 SEC (9.7-13.0)
[2020-03-19 08:19] LABS: BILIRUBIN,TOTAL 1.8 mg/dL (0.2-1); BLOOD UREA NITROGEN 16.3 mg/dL (7-18); CALCIUM 7.9 mg/dL (8.5-10.1); CREATININE 1.6 mg/dL (0.55-1.3); POTASSIUM 3.7 mmol/L (3.5-5.1); TOT PROT 5.7 g/dl (6.4-8.2)
[2020-03-19 08:26] LABS: BASO % 0.8 % (0-2.0); EOS % 3.6 % (0-4.5); HEMATOCRIT 19.5 % (32.4-45.2); LYMPH % 24.6 % (8-40); MCH 30.9 pg (25.7-33.7); MCHC 32.8 g/dl (32.0-36.0); MEAN CELL VOLUME 94.1 fl (80-96); MEAN PLT VOLUME 10.8 fl (7.5-11.1); MONO % 10.4 % (3.8-10.2); NEUT % 60.6 % (42.8-82.8); PLATELET COUNT 54 K/MM3 (134-434); RBC 2.07 M/mm3 (3.60-5.2); RDW 17.9 % (11.6-15.6); WHITE BLOOD COUNT 4.5 K/mm3 (4.0-10.0)
[2020-03-19 08:36] LABS: HEMOGLOBIN 6.4 GM/dL (10.7-15.3)
[2020-03-19] MEDS: SPIRONOLACTONE 25 MG TABLET PO SCH ×2 (09:15→21:29)
[2020-03-19] MEDS: metoPROLOL SUCCINATE 25 MG TAB.SR.24H (FP) PO SCH ×2 (09:17→11:12)
[2020-03-19] MEDS: LACTULOSE 20 GM/30 ML UDC (FOR ORAL USE ONLY) PO SCH ×2 (09:17→21:29)
[2020-03-19] MEDS: RIFAXIMIN 550 MG TABLET (UD) PO SCH ×2 (09:17→21:29)
[2020-03-19] MEDS ORDERED: PHYTONADIONE 10 MG/1 ML AMP SQ ONE (10:30)
--- NOTE | 2020-03-19 10:32 | PN ---
Progress Note, Physician Chief Complaint: Ascites Cryptogenic cirrhosis CKD History of Present Illness: NAD, sitting in a chair BC + bacillus species, awaiting [place] results on final culture UC + ESBL Still has some vaginal bleeding, Holding H/H Last Eliquis dose was 03/11/20 @ 2100 Has been getting Vit K SQ 10 mg daily, last dose 03/16/20 -Plt 54 today INR 1.63 today Seen by PROP AND EFFECTS DESIGNER- no surgical intervention recommended at this time Hg-6.4 - Current Medication List Current Medications: Active Medications Acetaminophen (Tylenol -) 650 mg PO Q6H PRN PRN Reason: FEVER Artificial Tears (Artificial Tears) 1 drop OU BID PRN PRN Reason: DRY EYES Docusate Sodium (Colace -) 100 mg PO BID PRN PRN Reason: CONSTIPATION Last Admin: 03/07/20 09:28 Dose: 100 mg Documented by: Furosemide (Lasix -) 60 mg PO BID@0600,1400 [facility] Last Admin: 03/19/20 05:27 Dose: 60 mg Documented by: Ampicillin Sodium/Sulbactam (Sodium 1.5 gm/ Sodium Chloride) 100 mls @ 200 mls/hr IVPB Q8H-IV [facility] Last Admin: 03/19/20 09:15 Dose: 200 mls/hr Documented by: Vancomycin HCl (Vancomycin (Pre-Docked)) 1,000 mg in 250 mls @ 166.667 mls/hr IVPB Q24H [facility]; Protocol Last Admin: 03/18/20 12:32 Dose: 166.667 mls/hr Documented by: Lactulose (Cephulac (Oral Use)) 20 gm PO BID [facility] Last Admin: 03/19/20 09:17 Dose: 20 gm Documented by: Metoprolol Succinate (Toprol Xl -) 12.5 mg PO DAILY [facility] Last Admin: 03/19/20 09:17 Dose: Not Given Documented by: Rifaximin (Xifaxan -) 550 mg PO BID [facility] Last Admin: 03/19/20 09:17 Dose: 550 mg Documented by: Spironolactone (Aldactone -) 50 mg PO BID [facility] Last Admin: 03/19/20 09:15 Dose: 50 mg Documented by: Tramadol HCl (Ultram -) 50 mg PO Q8H PRN PRN Reason: PAIN LEVEL 6-10 - Objective Vital Signs: Vital Signs Temperature 98.3 F 03/19/20 05:55 Pulse Rate 75 03/19/20 05:55 Respiratory Rate 18 03/19/20 05:55 Blood Pressure 108/44 L 03/19/20 05:55 O2 Sat by Pulse Oximetry (%) 96 03/19/20 09:00 Constitutional: Yes: Well Nourished, No Distress, Calm, Obese Cardiovascular: Yes: Regular Rate and Rhythm Respiratory: Yes: Regular, CTA Bilaterally Gastrointestinal: Yes: Normal Bowel Sounds, Soft, Abdomen, Obese, Ascites (RLQ) Genitourinary: Yes: Incontinence Musculoskeletal: Yes: Muscle Weakness Extremities: Yes: WNL Edema: Yes Edema: LLE: 2+, RLE: 2+ Peripheral Pulses WNL: Yes Neurological: Yes: Alert, Oriented Psychiatric: Yes: Alert, Oriented Labs: CBC, BMP 03/19/20 05:25 03/19/20 05:25 INR, PTT INR 1.63 (0.83-1.09) H 03/19/20 05:25 Fibrinogen 105.0 mg/dL (238-498) L 03/18/20 06:35 Problem List - Problems (1) Afib Assessment/Plan: -Chronic, rate controlled -Hold Eliquis due to vaginal bleed Problems reviewed: Yes Code(s): I48.91 - UNSPECIFIED ATRIAL FIBRILLATION (2) Anemia Assessment/Plan: -acute vs Chronic -2/2 to chronic liver disease -Still continues to Vaginally bleed -PROP AND EFFECTS DESIGNER consult appreciated -CA 125 elevated -Monitor trend -Transfuse only if Hg<7.0 to avoid fluid overload -Transfuse 1 U of PRBC today -Vitamin K as needed to keep INR close to 1.5 -Hematology plans to give cryo and Plts -Pt may need to be transfered to tertiary care center where there is Liver team. Problems reviewed: Yes Code(s): D64.9 - ANEMIA, UNSPECIFIED (3) CKD (chronic kidney disease) Assessment/Plan: -nephrology consult -Continue furosemide 40 mg PO BID -Continue Spironolactone 50 mg po daily Problems reviewed: Yes Code(s): N18.9 - CHRONIC KIDNEY DISEASE, UNSPECIFIED (4) Cryptogenic cirrhosis Assessment/Plan: -GI consult -Continue lactulose + rifaxamin Problems reviewed: Yes Code(s): K74.69 - OTHER CIRRHOSIS OF LIVER (5) Edema of abdominal wall Assessment/Plan: -Continue Furosemide 40 mg IV BID -Continue spironolactone Problems reviewed: Yes Code(s): R60.0 - LOCALIZED EDEMA (6) Lactic acidosis Assessment/Plan: -chronic -Repeat CXR-negative -Cultures: Microbiology 03/11/20 16:10 Blood - Peripheral Venous Blood Culture - Preliminary NO GROWTH OBTAINED AFTER 48 HOURS, INCUBATION TO CONTINUE FOR 3 DAYS. 03/11/20 16:40 Blood - Peripheral Venous Blood Culture - Preliminary NO GROWTH OBTAINED AFTER 48 HOURS, INCUBATION TO CONTINUE FOR 3 DAYS. 03/10/20 16:15 Urine - Urine Flores Urine Culture - Final Klebsiella Pneumoniae - Esbl 03/10/20 06:20 Blood - Peripheral Venous Blood Culture - Preliminary Bacillus Species, Not Antracis 03/10/20 06:15 Blood - Peripheral Venous Blood Culture - Preliminary Bacillus Species, Not Antracis 03/02/20 13:54 Urine - Urine Clean Catch Urine Culture - Final NO GROWTH OBTAINED Problems reviewed: Yes Code(s): E87.2 - ACIDOSIS (7) Vaginal bleeding Assessment/Plan: -Transvaginal U/S reviewed -PROP AND EFFECTS DESIGNER consult appreciated -CA125 elevated -If pt continues to bleed despite holding eliquis, would need D&C or hysteroscopy -Vitamin K 10 mg SQ today again -will monitor daily INR -INR goal close to 1.5 Problems reviewed: Yes Code(s): N93.9 - ABNORMAL UTERINE AND VAGINAL BLEEDING, UNSPECIFIED (8) Bacteremia Assessment/Plan: -ID consult -IV abx -Afebrile -Awaiting final cultures -May need a PICC line Problems reviewed: Yes Code(s): R78.81 - BACTEREMIA (9) UTI (urinary tract infection) Assessment/Plan: -UC: ESBL-likely colonizing -ID on board Problems reviewed: Yes Code(s): N39.0 - URINARY TRACT INFECTION, SITE NOT SPECIFIED Assessment/Plan See problem list Spoke to son Jefferson about pt updates. As per Jefferson, Oscar (pt's eldest son) wants to take Milicent to a nearby hospital close to him in [place]. I informed Jefferson that only way to do that is either AMA or transfer to tertiary care center (possibly [facility]) as Oscar lives in [place], [place]. Jefferson will call me back after speaking to Oscar. Call back number provided.
--- NOTE | 2020-03-19 10:40 | PN ---
Progress Note, Physician History of Present Illness: pulmonary alert,comfortable,sob improving,-cp - Current Medication List Current Medications: Active Medications Acetaminophen (Tylenol -) 650 mg PO Q6H PRN PRN Reason: FEVER Artificial Tears (Artificial Tears) 1 drop OU BID PRN PRN Reason: DRY EYES Docusate Sodium (Colace -) 100 mg PO BID PRN PRN Reason: CONSTIPATION Last Admin: 03/07/20 09:28 Dose: 100 mg Documented by: Furosemide (Lasix -) 60 mg PO BID@0600,1400 [facility] Last Admin: 03/19/20 05:27 Dose: 60 mg Documented by: Ampicillin Sodium/Sulbactam (Sodium 1.5 gm/ Sodium Chloride) 100 mls @ 200 mls/hr IVPB Q8H-IV [facility] Last Admin: 03/19/20 09:15 Dose: 200 mls/hr Documented by: Vancomycin HCl (Vancomycin (Pre-Docked)) 1,000 mg in 250 mls @ 166.667 mls/hr IVPB Q24H [facility]; Protocol Last Admin: 03/18/20 12:32 Dose: 166.667 mls/hr Documented by: Lactulose (Cephulac (Oral Use)) 20 gm PO BID [facility] Last Admin: 03/19/20 09:17 Dose: 20 gm Documented by: Metoprolol Succinate (Toprol Xl -) 12.5 mg PO DAILY [facility] Last Admin: 03/19/20 09:17 Dose: Not Given Documented by: Rifaximin (Xifaxan -) 550 mg PO BID [facility] Last Admin: 03/19/20 09:17 Dose: 550 mg Documented by: Spironolactone (Aldactone -) 50 mg PO BID [facility] Last Admin: 03/19/20 09:15 Dose: 50 mg Documented by: Tramadol HCl (Ultram -) 50 mg PO Q8H PRN PRN Reason: PAIN LEVEL 6-10 - Objective Vital Signs: Vital Signs Temperature 98.3 F 03/19/20 05:55 Pulse Rate 75 03/19/20 05:55 Respiratory Rate 18 03/19/20 05:55 Blood Pressure 108/44 L 03/19/20 05:55 O2 Sat by Pulse Oximetry (%) 96 03/19/20 09:00 Constitutional: Yes: Well Nourished, Calm Eyes: Yes: WNL, Other Neck: Yes: WNL Cardiovascular: Yes: Pulse Irregular, S1, S2 Respiratory: Yes: Diminished Gastrointestinal: Yes: Normal Bowel Sounds, Soft Extremities: Yes: WNL Edema: Yes Labs: CBC, BMP 03/19/20 05:25 03/19/20 05:25 INR, PTT INR 1.63 (0.83-1.09) H 03/19/20 05:25 Fibrinogen 105.0 mg/dL (238-498) L 03/18/20 06:35 Assessment/Plan Problem List - Problems (1) Afib Code(s): I48.91 - UNSPECIFIED ATRIAL FIBRILLATION (2) Anemia Code(s): D64.9 - ANEMIA, UNSPECIFIED (3) Ascites Code(s): R18.8 - OTHER ASCITES Qualifiers: Ascites type: other type Qualified Code(s): R18.8 - Other ascites (4) CKD (chronic kidney disease) Code(s): N18.9 - CHRONIC KIDNEY DISEASE, UNSPECIFIED (5) Chronic liver disease and cirrhosis Code(s): K74.60 - UNSPECIFIED CIRRHOSIS OF LIVER; K76.9 - LIVER DISEASE, UNSPECIFIED (6) Cirrhosis of liver with ascites Code(s): K74.60 - UNSPECIFIED CIRRHOSIS OF LIVER; R18.8 - OTHER ASCITES (7) Cor pulmonale Code(s): I27.81 - COR PULMONALE (CHRONIC) (8) Cryptogenic cirrhosis Code(s): K74.69 - OTHER CIRRHOSIS OF LIVER (9) Edema Code(s): R60.9 - EDEMA, UNSPECIFIED (10) Edema of abdominal wall Code(s): R60.0 - LOCALIZED EDEMA (11) HTN (hypertension) Code(s): I10 - ESSENTIAL (PRIMARY) HYPERTENSION (12) Hypotension Code(s): I95.9 - HYPOTENSION, UNSPECIFIED (13) 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 Assessment/Plan A/P Volume Overload Ascites CKD Liver Cirrhosis Atrial Fibrillation LV Diastolic Dysfunction HTN Anemia Thrombocytopenia - continue lasix, aldactone - monitor urine output, creatinine,h+h - daily weights - O2 as needed - rate controlled - Laculose DR DOLAN
--- NOTE | 2020-03-19 12:40 | PN ---
Progress Note, Physician History of Present Illness: Pt seen and examined at bedside. She is awake and alert. She denies shortness of breath. - Current Medication List Current Medications: Active Medications Acetaminophen (Tylenol -) 650 mg PO Q6H PRN PRN Reason: FEVER Artificial Tears (Artificial Tears) 1 drop OU BID PRN PRN Reason: DRY EYES Docusate Sodium (Colace -) 100 mg PO BID PRN PRN Reason: CONSTIPATION Last Admin: 03/07/20 09:28 Dose: 100 mg Documented by: Furosemide (Lasix -) 60 mg PO BID@0600,1400 [facility] Last Admin: 03/19/20 05:27 Dose: 60 mg Documented by: Ampicillin Sodium/Sulbactam (Sodium 1.5 gm/ Sodium Chloride) 100 mls @ 200 mls/hr IVPB Q8H-IV [facility] Last Admin: 03/19/20 09:15 Dose: 200 mls/hr Documented by: Vancomycin HCl (Vancomycin (Pre-Docked)) 1,000 mg in 250 mls @ 166.667 mls/hr IVPB Q24H [facility]; Protocol Last Admin: 03/18/20 12:32 Dose: 166.667 mls/hr Documented by: Lactulose (Cephulac (Oral Use)) 20 gm PO BID [facility] Last Admin: 03/19/20 09:17 Dose: 20 gm Documented by: Metoprolol Succinate (Toprol Xl -) 12.5 mg PO DAILY [facility] Last Admin: 03/19/20 11:12 Dose: 12.5 mg Documented by: Rifaximin (Xifaxan -) 550 mg PO BID [facility] Last Admin: 03/19/20 09:17 Dose: 550 mg Documented by: Spironolactone (Aldactone -) 50 mg PO BID [facility] Last Admin: 03/19/20 09:15 Dose: 50 mg Documented by: Tramadol HCl (Ultram -) 50 mg PO Q8H PRN PRN Reason: PAIN LEVEL 6-10 - Objective Vital Signs: Vital Signs Temperature 98.2 F 03/19/20 10:00 Pulse Rate 73 03/19/20 10:00 Respiratory Rate 19 03/19/20 10:00 Blood Pressure 96/36 L 03/19/20 10:00 O2 Sat by Pulse Oximetry (%) 96 03/19/20 10:00 Constitutional: Yes: Calm Eyes: Yes: Conjunctiva Clear HENT: Yes: Atraumatic Neck: Yes: Supple Cardiovascular: Yes: S1, S2 Respiratory: Yes: CTA Bilaterally Gastrointestinal: Yes: Soft Genitourinary: Yes: WNL Musculoskeletal: Yes: WNL Edema: Yes Edema: LLE: 2+, RLE: 2+ Neurological: Yes: Oriented Psychiatric: Yes: Oriented Labs: CBC, BMP 03/19/20 05:25 03/19/20 05:25 INR, PTT INR 1.63 (0.83-1.09) H 03/19/20 05:25 Fibrinogen 105.0 mg/dL (238-498) L 03/18/20 06:35 Problem List - Problems (1) CHF (congestive heart failure) Code(s): I50.9 - HEART FAILURE, UNSPECIFIED Qualifiers: Heart failure type: unspecified Heart failure chronicity: unspecified Qualified Code(s): I50.9 - Heart failure, unspecified (2) Lactic acidosis Code(s): E87.2 - ACIDOSIS Assessment/Plan Current Medications Generic Name Dose Route Start Last Admin Trade Name Freq PRN Reason Stop Dose Admin Acetaminophen 650 mg 03/04/20 20:04 Tylenol - PO Q6H PRN FEVER Artificial Tears 1 drop 03/04/20 20:04 Artificial Tears OU BID PRN DRY EYES Docusate Sodium 100 mg 03/04/20 20:04 03/07/20 09:28 Colace - PO 100 mg BID PRN Administration CONSTIPATION Furosemide 60 mg 03/17/20 17:36 03/19/20 05:27 Lasix - PO 60 mg BID@0600,1400 [facility] Administration Ampicillin Sodium/Sulbactam 100 mls @ 200 mls/hr 03/11/20 15:15 03/19/20 09:15 Sodium 1.5 gm/ Sodium Chloride IVPB 200 mls/hr Q8H-IV [facility] Administration Vancomycin HCl 1,000 mg in 250 mls @ 166.667 mls/hr 03/13/20 13:15 03/18/20 12:32 Vancomycin (Pre-Docked) IVPB 166.667 mls/hr Q24H [facility] Administration Protocol Lactulose 20 gm 03/13/20 22:00 03/19/20 09:17 Cephulac (Oral Use) PO 20 gm BID [facility] Administration Metoprolol Succinate 12.5 mg 03/06/20 11:03 03/19/20 11:12 Toprol Xl - PO 12.5 mg DAILY [facility] Administration Rifaximin 550 mg 03/04/20 22:00 03/19/20 09:17 Xifaxan - PO 550 mg BID [facility] Administration Spironolactone 50 mg 03/06/20 22:00 03/19/20 09:15 Aldactone - PO 50 mg BID [facility] Administration Tramadol HCl 50 mg 03/11/20 10:35 Ultram - PO Q8H PRN PAIN LEVEL 6-10 Impression 1. CKD 2. ascites 3. liver cirrhosis 4. ileus 5. microscopic hematuria 6. fluid overload 7. a-fib 8. hyperkalemia 9. vaginal spotting Plan - renal function stable - cont lasix and aldactone - check weights - volume status improving - cont lactulose and rifiximin
[2020-03-19] MEDS: VANCOMYCIN 1 GRAM (PRE-DOCKED) 1,000 MG/250 ML BAG IVPB SCH (14:02)
--- NOTE | 2020-03-19 15:22 | PN ---
Progress Note, Physician History of Present Illness: AWAKE, SEATED IN BED NO RECURRENT RIGORS NO FEVER BLOOD ISOLATE RECEIVED BY [facility] AWAIT IDENTIFICATION - Current Medication List Current Medications: Active Medications Acetaminophen (Tylenol -) 650 mg PO Q6H PRN PRN Reason: FEVER Artificial Tears (Artificial Tears) 1 drop OU BID PRN PRN Reason: DRY EYES Docusate Sodium (Colace -) 100 mg PO BID PRN PRN Reason: CONSTIPATION Last Admin: 03/07/20 09:28 Dose: 100 mg Documented by: Furosemide (Lasix -) 60 mg PO BID@0600,1400 [facility] Last Admin: 03/19/20 14:02 Dose: 60 mg Documented by: Ampicillin Sodium/Sulbactam (Sodium 1.5 gm/ Sodium Chloride) 100 mls @ 200 mls/hr IVPB Q8H-IV [facility] Last Admin: 03/19/20 09:15 Dose: 200 mls/hr Documented by: Vancomycin HCl (Vancomycin (Pre-Docked)) 1,000 mg in 250 mls @ 166.667 mls/hr IVPB Q24H [facility]; Protocol Last Admin: 03/19/20 14:02 Dose: 166.667 mls/hr Documented by: Lactulose (Cephulac (Oral Use)) 20 gm PO BID [facility] Last Admin: 03/19/20 09:17 Dose: 20 gm Documented by: Metoprolol Succinate (Toprol Xl -) 12.5 mg PO DAILY [facility] Last Admin: 03/19/20 11:12 Dose: 12.5 mg Documented by: Rifaximin (Xifaxan -) 550 mg PO BID [facility] Last Admin: 03/19/20 09:17 Dose: 550 mg Documented by: Spironolactone (Aldactone -) 50 mg PO BID [facility] Last Admin: 03/19/20 09:15 Dose: 50 mg Documented by: Tramadol HCl (Ultram -) 50 mg PO Q8H PRN PRN Reason: PAIN LEVEL 6-10 - Objective Vital Signs: Vital Signs Temperature 98.2 F 03/19/20 10:00 Pulse Rate 73 03/19/20 10:00 Respiratory Rate 19 03/19/20 10:00 Blood Pressure 96/36 L 03/19/20 10:00 O2 Sat by Pulse Oximetry (%) 96 03/19/20 10:00 Constitutional: Yes: No Distress, Obese Eyes: Yes: Conjunctiva Clear Cardiovascular: Yes: Regular Rate and Rhythm, S1, S2 Respiratory: Yes: CTA Bilaterally Gastrointestinal: Yes: Normal Bowel Sounds, Soft, Abdomen, Obese. No: Tenderness Labs: CBC, BMP 03/19/20 05:25 03/19/20 05:25 INR, PTT INR 1.63 (0.83-1.09) H 03/19/20 05:25 Fibrinogen 105.0 mg/dL (238-498) L 03/18/20 06:35 Assessment/Plan GRAM POS SISI BACTEREMIA ? SOURCE AWAIT IDENTIFICATION SPECIMEN SENT TO [facility] REPEAT BC NO GROWTH CONTINUE UNASYN/ VANCOMYCIN VANCOMYCIN LEVEL NOTED ECHO NO VEGETATIONS + URINE C/S ESBL PROBABLE COLONIZER NO TX ADVISED
--- NOTE | 2020-03-19 15:36 | PN ---
Physical Exam: SUBJECTIVE: Patient seen and examined. Pt. denies any acute complaints. Pt. states that prior to any transfer initiation, we claudia have to follow up with her sons who are requesting facilities near by to them. Pt. dneies any abdominal pain, chest pain, shortness of breath or bleeding/bruising from any other location. Pt. still has vaginal bleeding. OBJECTIVE: Vital Signs Period Temp Pulse Resp BP Sys/Patel Pulse Ox Last 24 Hr 98.2 F-98.5 F 73-75 18-19 96-128/36-49 96-98 GENERAL: Awake, alert, and fully oriented, in no acute distress. HEAD: Normal with no signs of trauma. EYES: Extraocular movements intact, sclera anicteric, conjunctiva clear. EARS, NOSE, THROAT: Moist mucous membranes. NECK: No lymphadenopathy, JVD, or masses. LUNGS: Breath sounds equal anteriorly, clear to auscultation bilaterally. No wheezes, and no crackles. HEART: Regular rate and rhythm, normal S1 and S2 with systolic murmur ABDOMEN: Soft, non-tender,obese, normoactive bowel sounds, anasarcic skin changes, dull to percussion MUSCULOSKELETAL: Decreased ROM of RUE UPPER EXTREMITIES: 2+ radial pulses, warm, well-perfused. LOWER EXTREMITIES: 2+ dorsal pedal pulses, warm, well-perfused. No calf tenderness. No peripheral edema. NEUROLOGICAL: No focal deficits. Normal speech. PSYCHIATRIC: Cooperative. Good eye contact. Appropriate mood and affect. SKIN: Warm, dry, Laboratory Results - last 24 hr 03/19/20 03/19/20 03/19/20 05:25 05:25 05:25 WBC 4.5 RBC 2.07 L Hgb 6.4 L* Hct 19.5 L MCV 94.1 MCH 30.9 MCHC 32.8 RDW 17.9 H Plt Count 54 L MPV 10.8 Absolute Neuts (auto) 2.7 Neutrophils % 60.6 Lymphocytes % 24.6 Monocytes % 10.4 H Eosinophils % 3.6 Basophils % 0.8 Nucleated RBC % 0 PT with INR 19.30 H INR 1.63 H Sodium 140 Potassium 3.7 Chloride 102 Carbon Dioxide 31 Anion Gap 7 L BUN 16.3 Creatinine 1.6 H Est GFR (CKD-EPI)AfAm 35.90 Est GFR (CKD-EPI)NonAf 30.98 Random Glucose 65 L Calcium 7.9 L Total Bilirubin 1.8 H AST 31 ALT 14 Alkaline Phosphatase 90 Total Protein 5.7 L Albumin 2.0 L Blood Type Antibody Screen Crossmatch 03/19/20 12:58 WBC RBC Hgb Hct MCV MCH MCHC RDW Plt Count MPV Absolute Neuts (auto) Neutrophils % Lymphocytes % Monocytes % Eosinophils % Basophils % Nucleated RBC % PT with INR INR Sodium Potassium Chloride Carbon Dioxide Anion Gap BUN Creatinine Est GFR (CKD-EPI)AfAm Est GFR (CKD-EPI)NonAf Random Glucose Calcium Total Bilirubin AST ALT Alkaline Phosphatase Total Protein Albumin Blood Type O POSITIVE Antibody Screen Negative Crossmatch See Detail Active Medications Generic Name Dose Route Start Last Admin Trade Name Freq PRN Reason Stop Dose Admin Acetaminophen 650 mg 03/04/20 20:04 Tylenol - PO Q6H PRN FEVER Artificial Tears 1 drop 03/04/20 20:04 Artificial Tears OU BID PRN DRY EYES Docusate Sodium 100 mg 03/04/20 20:04 03/07/20 09:28 Colace - PO 100 mg BID PRN Administration CONSTIPATION Furosemide 60 mg 03/17/20 17:36 03/19/20 14:02 Lasix - PO 60 mg BID@0600,1400 TAMMY Administration Ampicillin Sodium/Sulbactam 100 mls @ 200 mls/hr 03/11/20 15:15 03/19/20 09: 15 Sodium 1.5 gm/ Sodium Chloride IVPB 200 mls/hr Q8H-IV TAMMY Administration Vancomycin HCl 1,000 mg in 250 mls @ 166.667 mls/hr 03/13/20 13:15 03/19/20 14:02 Vancomycin (Pre-Docked) IVPB 166.667 mls/hr Q24H TAMMY Administration Protocol Lactulose 20 gm 03/13/20 22:00 03/19/20 09:17 Cephulac (Oral Use) PO 20 gm BID TAMMY Administration Metoprolol Succinate 12.5 mg 03/06/20 11:03 03/19/20 11:12 Toprol Xl - PO 12.5 mg DAILY TAMMY Administration Rifaximin 550 mg 03/04/20 22:00 03/19/20 09:17 Xifaxan - PO 550 mg BID TAMMY Administration Spironolactone 50 mg 03/06/20 22:00 03/19/20 09:15 Aldactone - PO 50 mg BID TAMMY Administration Tramadol HCl 50 mg 03/11/20 10:35 Ultram - PO Q8H PRN PAIN LEVEL 6-10 ASSESSMENT/PLAN: Pt. is a 74 y.o. F w/ PMHx. of Cirrhosis(KING w/ ascites and Hx. of HE), HFpEF, Afib(on reduced? dose Eliquis), CKD (Stage 3), Venous insufficiency, HTN, A nemia, and Throbocytopenia presents for increased abdominal swelling. We have been called to assess Pt. for anemia. #Normocytic Anemia likely from anemia of chronic disease as Pt. has cirrhosis and CKD HgB currently lower than baseline lab studies consistent with anemia of chronic disease GI consult appreciated. Pt. recommended to [facility] at [facility] CLINICAL RESEARCH MANAGER consult appreciated as Pt. having ongoing vaginal bleeding.--> no acute intervention, high risk Elevated Ca125 may be due to other causes most notably cirrhosis and renal insufficiency. s/p pRBC and is to receive 1 unit today [email or web address] rce=search_result&selectedTitle=2~104&usage_type=default&display_rank=2 #Thrombocytopenia likely 2/2 cirrhosis continue to monitor Transfuse platelets to keep above 50k, in setting of vaginal bleeding. fibrinogen: <100-->121--->105 f/u mixing studies Pt. is s/p Cryoprecipitate and platelet transfusion- to receive both today #DVT Ppx. Hold Eliquis, cardiology evaluation appreciated for risk/benefit of AC as Pt. having ongoing bleeding, cirrhosis, thrombocytopenia vs. Afib. Visit type - Emergency Visit Emergency Visit: Yes ED Registration Date: 03/02/20 Care time: The patient presented to the Emergency Department on the above date and was hospitalized for further evaluation of their emergent condition. - New Patient This patient is new to me today: No - Critical Care Critical Care patient: No - Discharge Referral Referred to [facility] Med P.C.: No - Medication Review Med list reviewed for High Risk Meds patients 65 and older: Yes ATTENDING PHYSICIAN STATEMENT I saw and evaluated the patient. I reviewed the resident's note and discussed the case with the resident. I agree with the resident's findings and plan as documented. SUBJECTIVE: OBJECTIVE: ASSESSMENT AND PLAN:
--- NOTE | 2020-03-19 22:59 | PN.HO ---
Progress Note (short form) - Note Progress Note: PAtient seen zaria lara still with vaginal bleeding. AFVSS Cor: RSR, No murmurs, No gallops Lungs: Clear to P&A Abd: Soft, Normal bowel sounds, No organomegaly. + UMBLICAL nodularity Ext:No significant edema LAbs/Meds reviewed A/P Pt. is a 74 y.o. F w/ PMHx. of Cirrhosis(KING w/ ascites and Hx. of HE), HFpEF, Afib(on reduced? dose Eliquis), CKD (Stage 3), Venous insufficiency, HTN, Anemia, and Thrombocytopenia presents for increased abdominal distention, Rt. flank pain. We have been called to assess patient for anemia. normocytic/normochromic anemia of chronic kidney diseased due to CKD/ cirrhosis + ongoing vaginal bleeding iron studies suggestive of chronic disease Reverse AG ratio : ? liver disease. polyclonal hypergammaglobulineia vaginal bleeding -- transvaginal U/S shows no uterine masses but endometrial cavity fluid Deemed to be high risk for intervention by DENTAL OFFICE ASSISTANT given cirrhosis CA [address] a/p 02/18--large vol. ascites/calcified fibroids/cirrhosis/splenomegaly fluid cytology 01/29/20 --negative for malignant cells Thrombocytopenia--- due to cirrhosis. 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 k deficiency ( s/p vit. K) holding eliquis May need FFP Given underlying cirrhosis/coagulopathy DENTAL OFFICE ASSISTANT team deemed her too high risk for procedures
[2020-03-20] MEDS ORDERED: SODIUM CHLORIDE 100 ML IVPB ONE ×3 (01:30→16:16)
[2020-03-20] MEDS ORDERED: AMPICILLIN NA/SULBACTAM NA 1.5 GM VIAL ONE ×3 (01:30→16:15)
[2020-03-20] MEDS: AMPICILLIN NA/SULBACTAM NA 1.5 GM in SODIUM CHLORIDE 100 ML IVPB SCH ×3 (01:32→18:01)
[2020-03-20] MEDS: FUROSEMIDE 40 MG TABLET (FP) PO SCH ×2 (05:49→13:09)
[2020-03-20 08:19] LABS: BASO % 0.8 % (0-2.0); HEMATOCRIT 21.5 % (32.4-45.2); HEMOGLOBIN 7.2 GM/dL (10.7-15.3); LYMPH % 22.6 % (8-40); MCH 30.5 pg (25.7-33.7); MCHC 33.5 g/dl (32.0-36.0); MEAN CELL VOLUME 91.2 fl (80-96); MEAN PLT VOLUME 9.9 fl (7.5-11.1); MONO % 11.7 % (3.8-10.2); NEUT % 61.9 % (42.8-82.8); PLATELET COUNT 81 K/MM3 (134-434); RBC 2.36 M/mm3 (3.60-5.2); RDW 17.1 % (11.6-15.6); WHITE BLOOD COUNT 4.8 K/mm3 (4.0-10.0)
[2020-03-20 08:23] LABS: ALBUMIN 2.1 g/dl (3.4-5.0); BILIRUBIN,TOTAL 2.5 mg/dL (0.2-1); BLOOD UREA NITROGEN 14.3 mg/dL (7-18); CALCIUM 8.3 mg/dL (8.5-10.1); CREATININE 1.6 mg/dL (0.55-1.3); POTASSIUM 3.6 mmol/L (3.5-5.1); TOT PROT 6.3 g/dl (6.4-8.2)
[2020-03-20 09:17] LABS: INR 1.48 (0.83-1.09); PROTHROMBIN TIME (PATIENT) 17.5 SEC (9.7-13.0)
[2020-03-20 09:19] LABS: ACTIVATED PTT 41.3 SECONDS (25.2-36.5)
[2020-03-20] MEDS: metoPROLOL SUCCINATE 25 MG TAB.SR.24H (FP) PO SCH (09:30)
[2020-03-20] MEDS: RIFAXIMIN 550 MG TABLET (UD) PO SCH ×2 (09:30→22:27)
[2020-03-20] MEDS: LACTULOSE 20 GM/30 ML UDC (FOR ORAL USE ONLY) PO SCH ×2 (09:30→22:27)
[2020-03-20] MEDS: SPIRONOLACTONE 25 MG TABLET PO SCH ×3 (09:31→22:33)
--- NOTE | 2020-03-20 10:18 | PN ---
Progress Note, Physician Chief Complaint: Ascites Cryptogenic cirrhosis CKD History of Present Illness: NAD, sitting in a chair BC + bacillus species, awaiting VTS results on final culture UC + ESBL Still has some vaginal bleeding, H/H improved Last Eliquis dose was 03/11/20 @ 2100 Has been getting Vit K SQ 10 mg daily, last dose 03/16/20 -Plt 81 today INR 1.48 today Seen by TRAINING AND DEVELOPMENT PROJECT LEADER- no surgical intervention recommended at this time Hg-7.2 S/P 10 units cryoprecipitate for fibrinogen <100 S/P 1 U of PRBC + 1 U of Plts Pt's son HCP- Oscar Rodgers, wants to transfer pt to [facility], Transfer initiated and accepted. - Current Medication List Current Medications: Active Medications Acetaminophen (Tylenol -) 650 mg PO Q6H PRN PRN Reason: FEVER Artificial Tears (Artificial Tears) 1 drop OU BID PRN PRN Reason: DRY EYES Docusate Sodium (Colace -) 100 mg PO BID PRN PRN Reason: CONSTIPATION Last Admin: 03/07/20 09:28 Dose: 100 mg Documented by: Furosemide (Lasix -) 60 mg PO BID@0600,1400 [facility] Last Admin: 03/20/20 05:49 Dose: 60 mg Documented by: Ampicillin Sodium/Sulbactam (Sodium 1.5 gm/ Sodium Chloride) 100 mls @ 200 mls/hr IVPB Q8H-IV TAMMY Last Admin: 03/20/20 09:29 Dose: 200 mls/hr Documented by: Vancomycin HCl (Vancomycin (Pre-Docked)) 1,000 mg in 250 mls @ 166.667 mls/hr IVPB Q24H TAMMY; Protocol Last Admin: 03/19/20 14:02 Dose: 166.667 mls/hr Documented by: Lactulose (Cephulac (Oral Use)) 20 gm PO BID [facility] Last Admin: 03/20/20 09:30 Dose: Not Given Documented by: Metoprolol Succinate (Toprol Xl -) 12.5 mg PO DAILY [facility] Last Admin: 03/20/20 09:30 Dose: 12.5 mg Documented by: Rifaximin (Xifaxan -) 550 mg PO BID [facility] Last Admin: 03/20/20 09:30 Dose: 550 mg Documented by: Spironolactone (Aldactone -) 50 mg PO BID [facility] Last Admin: 03/20/20 09:31 Dose: 50 mg Documented by: Tramadol HCl (Ultram -) 50 mg PO Q8H PRN PRN Reason: PAIN LEVEL 6-10 - Objective Vital Signs: Vital Signs Temperature 98.1 F 03/20/20 08:02 Pulse Rate 72 03/20/20 08:02 Respiratory Rate 18 03/20/20 08:02 Blood Pressure 90/37 L 03/20/20 08:02 O2 Sat by Pulse Oximetry (%) 95 03/20/20 08:02 Constitutional: Yes: Well Nourished, No Distress, Calm, Obese Cardiovascular: Yes: Regular Rate and Rhythm Respiratory: Yes: Regular, CTA Bilaterally Gastrointestinal: Yes: Normal Bowel Sounds, Soft, Abdomen, Obese, Ascites (RLQ), Other Genitourinary: Yes: WNL Musculoskeletal: Yes: WNL Extremities: Yes: WNL Edema: Yes Edema: LLE: 2+, RLE: 2+ Peripheral Pulses WNL: Yes Neurological: Yes: Alert, Oriented Psychiatric: Yes: Alert, Oriented Labs: CBC, BMP 03/20/20 06:18 03/20/20 06:18 INR, PTT INR Cancelled 03/20/20 09:04 Fibrinogen 146.0 mg/dL (238-498) L 03/20/20 06:18 Problem List - Problems (1) Afib Assessment/Plan: -Chronic, rate controlled -Hold Eliquis due to vaginal bleed Problems reviewed: Yes Code(s): I48.91 - UNSPECIFIED ATRIAL FIBRILLATION (2) Anemia Assessment/Plan: -acute vs Chronic -2/2 to chronic liver disease -Still continues to Vaginally bleed -TRAINING AND DEVELOPMENT PROJECT LEADER consult appreciated -CA 125 elevated -Monitor trend -Transfuse only if Hg<7.0 to avoid fluid overload -Transfuse 1 U of PRBC today again -S/P Cryo 10 units -S/P 1 unit of Plt yesterday -Pt may need to be transfered to tertiary care center where there is Liver team. Problems reviewed: Yes Code(s): D64.9 - ANEMIA, UNSPECIFIED (3) CKD (chronic kidney disease) Assessment/Plan: -nephrology consult -Continue furosemide 40 mg PO BID -Continue Spironolactone 50 mg po daily Problems reviewed: Yes Code(s): N18.9 - CHRONIC KIDNEY DISEASE, UNSPECIFIED (4) Cryptogenic cirrhosis Assessment/Plan: -GI consult -Continue lactulose + rifaxamin Problems reviewed: Yes Code(s): K74.69 - OTHER CIRRHOSIS OF LIVER (5) Edema of abdominal wall Assessment/Plan: -Continue Furosemide 40 mg PO BID -Continue spironolactone Problems reviewed: Yes Code(s): R60.0 - LOCALIZED EDEMA (6) Lactic acidosis Assessment/Plan: -chronic -Repeat CXR-negative -Cultures: Microbiology 03/11/20 16:10 Blood - Peripheral Venous Blood Culture - Preliminary NO GROWTH OBTAINED AFTER 48 HOURS, INCUBATION TO CONTINUE FOR 3 DAYS. 03/11/20 16:40 Blood - Peripheral Venous Blood Culture - Preliminary NO GROWTH OBTAINED AFTER 48 HOURS, INCUBATION TO CONTINUE FOR 3 DAYS. 03/10/20 16:15 Urine - Urine Flores Urine Culture - Final Klebsiella Pneumoniae - Esbl 03/10/20 06:20 Blood - Peripheral Venous Blood Culture - Preliminary Bacillus Species, Not Antracis 03/10/20 06:15 Blood - Peripheral Venous Blood Culture - Preliminary Bacillus Species, Not Antracis 03/02/20 13:54 Urine - Urine Clean Catch Urine Culture - Final NO GROWTH OBTAINED Problems reviewed: Yes Code(s): E87.2 - ACIDOSIS (7) Vaginal bleeding Assessment/Plan: -Transvaginal U/S reviewed -TRAINING AND DEVELOPMENT PROJECT LEADER consult appreciated -CA125 elevated- not dominique value in light of cirrhosis -If pt continues to bleed despite holding eliquis, would need D&C or hysteroscopy -Vitamin K 10 mg SQ today again -will monitor daily INR -INR goal close to 1.5 Problems reviewed: Yes Code(s): N93.9 - ABNORMAL UTERINE AND VAGINAL BLEEDING, UNSPECIFIED (8) Bacteremia Assessment/Plan: -ID consult -IV abx -Afebrile -Awaiting final cultures -May need a PICC line-pt is refusing at this time Problems reviewed: Yes Code(s): R78.81 - BACTEREMIA (9) UTI (urinary tract infection) Assessment/Plan: -UC: ESBL-likely colonizing -ID on board Problems reviewed: Yes Code(s): N39.0 - URINARY TRACT INFECTION, SITE NOT SPECIFIED Assessment/Plan See problem list Spoke to son Oscar about pt status. Transfer to be arranged by [facility] via [facility]- Dr Yari Coughlin MD is the accepting physician.
--- NOTE | 2020-03-20 10:58 | PN ---
Progress Note (short form) - Note Progress Note: PULMONARY Still with vaginal bleeding. Denies shortness of breath. Leg swelling also improving. No chest pain, cough, fevers. Vital Signs Period Temp Pulse Resp BP Sys/Patel Pulse Ox Last 24 Hr 97.9 F-98.5 F 72-76 18-18 90-128/37-57 94-97 Gen: NAD at rest Heart: RRR Lung: decreased breath sounds at the bases Abd: soft, nontender Ext: + edema CBC, BMP 03/20/20 06:18 03/20/20 06:18 Active Medications Acetaminophen (Tylenol -) 650 mg PO Q6H PRN PRN Reason: FEVER Artificial Tears (Artificial Tears) 1 drop OU BID PRN PRN Reason: DRY EYES Docusate Sodium (Colace -) 100 mg PO BID PRN PRN Reason: CONSTIPATION Last Admin: 03/07/20 09:28 Dose: 100 mg Documented by: Furosemide (Lasix -) 60 mg PO BID@0600,1400 [facility] Last Admin: 03/20/20 05:49 Dose: 60 mg Documented by: Ampicillin Sodium/Sulbactam (Sodium 1.5 gm/ Sodium Chloride) 100 mls @ 200 mls/hr IVPB Q8H-IV TAMMY Last Admin: 03/20/20 09:29 Dose: 200 mls/hr Documented by: Vancomycin HCl (Vancomycin (Pre-Docked)) 1,000 mg in 250 mls @ 166.667 mls/hr IVPB Q24H TAMMY; Protocol Last Admin: 03/19/20 14:02 Dose: 166.667 mls/hr Documented by: Lactulose (Cephulac (Oral Use)) 20 gm PO BID [facility] Last Admin: 03/20/20 09:30 Dose: Not Given Documented by: Metoprolol Succinate (Toprol Xl -) 12.5 mg PO DAILY [facility] Last Admin: 03/20/20 09:30 Dose: 12.5 mg Documented by: Rifaximin (Xifaxan -) 550 mg PO BID TAMMY Last Admin: 03/20/20 09:30 Dose: 550 mg Documented by: Spironolactone (Aldactone -) 50 mg PO BID [facility] Last Admin: 03/20/20 09:31 Dose: 50 mg Documented by: Tramadol HCl (Ultram -) 50 mg PO Q8H PRN PRN Reason: PAIN LEVEL 6-10 A/P Volume Overload Ascites CKD Liver Cirrhosis Atrial Fibrillation LV Diastolic Dysfunction HTN Vaginal Bleeding Acute Blood Loss AnemiaAnemia Thrombocytopenia - continue lasix, aldactone - monitor urine output, creatinine - daily weights - O2 as needed - rate controlled - holding anticoagulation - monitor CBC, coags - transfuse as needed
--- NOTE | 2020-03-20 11:39 | PN ---
Physical Exam: SUBJECTIVE: Patient seen and examined. Pt. states that she is going to leave tomorrow to go to a hospital ([facility]) closer to her son and to complete the workup for her vaginal bleeding. Pt. denies any abdominal pain or shortness of breath. Pt. is frustrated. Pt. states her periumbilical mass has been there for many years and has refused US. Pt. states she will refuse pRBCs today as well. OBJECTIVE: Vital Signs Period Temp Pulse Resp BP Sys/Patel Pulse Ox Last 24 Hr 97.9 F-98.5 F 72-76 18-18 90-128/37-57 94-97 GENERAL: Awake, alert, and fully oriented, in no acute distress. HEAD: Normal with no signs of trauma. EYES: Extraocular movements intact, sclera anicteric, conjunctiva clear. EARS, NOSE, THROAT: Moist mucous membranes. NECK: No lymphadenopathy, JVD, or masses. LUNGS: Breath sounds equal anteriorly, clear to auscultation bilaterally. No wheezes, and no crackles. HEART: Regular rate and rhythm, normal S1 and S2 with systolic murmur ABDOMEN: Soft, non-tender,obese, normoactive bowel sounds, anasarcic skin changes, dull to percussion MUSCULOSKELETAL: Decreased ROM of RUE UPPER EXTREMITIES: 2+ radial pulses, warm, well-perfused. LOWER EXTREMITIES: 2+ dorsal pedal pulses, warm, well-perfused. No calf tenderness. No peripheral edema. NEUROLOGICAL: No focal deficits. Normal speech. PSYCHIATRIC: Cooperative. Good eye contact. Appropriate mood and affect. SKIN: Warm, dry, Laboratory Results - last 24 hr 03/19/20 03/20/20 03/20/20 12:58 06:00 06:18 WBC 4.8 RBC 2.36 L Hgb 7.2 L Hct 21.5 L MCV 91.2 MCH 30.5 MCHC 33.5 RDW 17.1 H Plt Count 81 L D MPV 9.9 Absolute Neuts (auto) 3.0 Neutrophils % 61.9 Lymphocytes % 22.6 Monocytes % 11.7 H Eosinophils % 3.0 Basophils % 0.8 Nucleated RBC % 0 PT with INR 17.50 H INR 1.48 H PTT (Actin FS) 41.3 H Fibrinogen Sodium Potassium Chloride Carbon Dioxide Anion Gap BUN Creatinine Est GFR (CKD-EPI)AfAm Est GFR (CKD-EPI)NonAf Random Glucose Calcium Total Bilirubin AST ALT Alkaline Phosphatase Total Protein Albumin Blood Type O POSITIVE Antibody Screen Negative Crossmatch See Detail 03/20/20 03/20/20 03/20/20 06:18 06:18 09:04 WBC RBC Hgb Hct MCV MCH MCHC RDW Plt Count MPV Absolute Neuts (auto) Neutrophils % Lymphocytes % Monocytes % Eosinophils % Basophils % Nucleated RBC % PT with INR Cancelled INR Cancelled PTT (Actin FS) Cancelled Fibrinogen 146.0 L Sodium 139 Potassium 3.6 Chloride 102 Carbon Dioxide 32 Anion Gap 5 L BUN 14.3 Creatinine 1.6 H Est GFR (CKD-EPI)AfAm 35.90 Est GFR (CKD-EPI)NonAf 30.98 Random Glucose 68 L Calcium 8.3 L Total Bilirubin 2.5 H AST 33 ALT 16 Alkaline Phosphatase 99 Total Protein 6.3 L Albumin 2.1 L Blood Type Antibody Screen Crossmatch Active Medications Generic Name Dose Route Start Last Admin Trade Name Freq PRN Reason Stop Dose Admin Acetaminophen 650 mg 03/04/20 20:04 Tylenol - PO Q6H PRN FEVER Artificial Tears 1 drop 03/04/20 20:04 Artificial Tears OU BID PRN DRY EYES Docusate Sodium 100 mg 03/04/20 20:04 03/07/20 09:28 Colace - PO 100 mg BID PRN Administration CONSTIPATION Furosemide 60 mg 03/17/20 17:36 03/20/20 05:49 Lasix - PO 60 mg BID@0600,1400 TAMMY Administration Ampicillin Sodium/Sulbactam 100 mls @ 200 mls/hr 03/11/20 15:15 03/20/20 09:29 Sodium 1.5 gm/ Sodium Chloride IVPB 200 mls/hr Q8H-IV TAMMY Administration Vancomycin HCl 1,000 mg in 250 mls @ 166.667 mls/hr 03/13/20 13:15 03/19/20 14:02 Vancomycin (Pre-Docked) IVPB 166.667 mls/hr Q24H TAMMY Administration Protocol Lactulose 20 gm 03/13/20 22:00 03/20/20 09:30 Cephulac (Oral Use) PO Not Given BID TAMMY Metoprolol Succinate 12.5 mg 03/06/20 11:03 03/20/20 09:30 Toprol Xl - PO 12.5 mg DAILY TAMMY Administration Rifaximin 550 mg 03/04/20 22:00 03/20/20 09:30 Xifaxan - PO 550 mg BID TAMMY Administration Spironolactone 50 mg 03/06/20 22:00 03/20/20 09:31 Aldactone - PO 50 mg BID TAMMY Administration Tramadol HCl 50 mg 03/11/20 10:35 Ultram - PO Q8H PRN PAIN LEVEL 6-10 ASSESSMENT/PLAN: Pt. is a 74 y.o. F w/ PMHx. of Cirrhosis(KING w/ ascites and Hx. of HE), HFpEF, Afib(on reduced? dose Eliquis), CKD (Stage 3), Venous insufficiency, HTN, Anemia, and Throbocytopenia presents for increased abdominal swelling. We have been called to assess Pt. for anemia. #Normocytic Anemia likely from anemia of chronic disease as Pt. has cirrhosis and CKD HgB currently lower than baseline lab studies consistent with anemia of chronic disease GI consult appreciated. Pt. recommended [facility] SPECIAL FORCES OFFICER consult appreciated as Pt. having ongoing vaginal bleeding.--> no acute intervention, high risk Elevated Ca125 may be due to other causes most notably cirrhosis and renal insufficiency. s/p pRBC --> HgB today is 7.2 from 6.4 yesterday. Pt. for pRBC today [email or web address]=ca-125&diana rce=search_result&selectedTitle=2~104&usage_type=default&display_rank=2 #Thrombocytopenia likely 2/2 cirrhosis continue to monitor Transfuse platelets to keep above 50k, in setting of vaginal bleeding. fibrinogen: <100-->121--->105 f/u mixing studies, factor VIII and factor X Pt. is s/p Cryoprecipitate and platelet transfusion--> Platelets currenly 81k #DVT Ppx. Hold Eliquis, cardiology evaluation appreciated for risk/benefit of AC as Pt. having ongoing bleeding, cirrhosis, thrombocytopenia vs. Afib Visit type - Emergency Visit Emergency Visit: Yes ED Registration Date: 03/02/20 Care time: The patient presented to the Emergency Department on the above date and was hospitalized for further evaluation of their emergent condition. - New Patient This patient is new to me today: No - Critical Care Critical Care patient: No - Discharge Referral Referred to [facility] Med P.C[facility] No - Medication Review Med list reviewed for High Risk Meds patients 65 and older: Yes ATTENDING PHYSICIAN STATEMENT I saw and evaluated the patient. I reviewed the resident's note and discussed the case with the resident. I agree with the resident's findings and plan as documented. SUBJECTIVE: OBJECTIVE: ASSESSMENT AND PLAN:
--- NOTE | 2020-03-20 15:00 | PN ---
Progress Note, Physician History of Present Illness: Pt seen and examined at bedside. She is awake and alert. She denies shortness of breath. - Current Medication List Current Medications: Active Medications Acetaminophen (Tylenol -) 650 mg PO Q6H PRN PRN Reason: FEVER Artificial Tears (Artificial Tears) 1 drop OU BID PRN PRN Reason: DRY EYES Docusate Sodium (Colace -) 100 mg PO BID PRN PRN Reason: CONSTIPATION Last Admin: 03/07/20 09:28 Dose: 100 mg Documented by: Furosemide (Lasix -) 60 mg PO BID@0600,1400 [facility] Last Admin: 03/20/20 13:09 Dose: 60 mg Documented by: Ampicillin Sodium/Sulbactam (Sodium 1.5 gm/ Sodium Chloride) 100 mls @ 200 mls/hr IVPB Q8H-IV [facility] Last Admin: 03/20/20 09:29 Dose: 200 mls/hr Documented by: Vancomycin HCl (Vancomycin (Pre-Docked)) 1,000 mg in 250 mls @ 166.667 mls/hr IVPB Q24H [facility]; Protocol Last Admin: 03/19/20 14:02 Dose: 166.667 mls/hr Documented by: Lactulose (Cephulac (Oral Use)) 20 gm PO BID [facility] Last Admin: 03/20/20 09:30 Dose: Not Given Documented by: Metoprolol Succinate (Toprol Xl -) 12.5 mg PO DAILY [facility] Last Admin: 03/20/20 09:30 Dose: 12.5 mg Documented by: Rifaximin (Xifaxan -) 550 mg PO BID [facility] Last Admin: 03/20/20 09:30 Dose: 550 mg Documented by: Spironolactone (Aldactone -) 50 mg PO BID [facility] Last Admin: 03/20/20 09:31 Dose: 50 mg Documented by: Tramadol HCl (Ultram -) 50 mg PO Q8H PRN PRN Reason: PAIN LEVEL 6-10 - Objective Vital Signs: Vital Signs Temperature 98.1 F 03/20/20 08:02 Pulse Rate 72 03/20/20 08:02 Respiratory Rate 18 03/20/20 09:00 Blood Pressure 90/37 L 03/20/20 08:02 O2 Sat by Pulse Oximetry (%) 95 03/20/20 09:00 Constitutional: Yes: Calm Eyes: Yes: Conjunctiva Clear HENT: Yes: Atraumatic Neck: Yes: Supple Cardiovascular: Yes: S1, S2 Respiratory: Yes: CTA Bilaterally Gastrointestinal: Yes: Normal Bowel Sounds, Soft Genitourinary: Yes: WNL Musculoskeletal: Yes: WNL Edema: No Integumentary: Yes: WNL Neurological: Yes: Oriented Psychiatric: Yes: Oriented Labs: CBC, BMP 03/20/20 06:18 03/20/20 06:18 INR, PTT INR Cancelled 03/20/20 09:04 Fibrinogen 146.0 mg/dL (238-498) L 03/20/20 06:18 Problem List - Problems (1) CHF (congestive heart failure) Code(s): I50.9 - HEART FAILURE, UNSPECIFIED Qualifiers: Heart failure type: unspecified Heart failure chronicity: unspecified Qualified Code(s): I50.9 - Heart failure, unspecified (2) Lactic acidosis Code(s): E87.2 - ACIDOSIS Assessment/Plan Current Medications Generic Name Dose Route Start Last Admin Trade Name Freq PRN Reason Stop Dose Admin Acetaminophen 650 mg 03/04/20 20:04 Tylenol - PO Q6H PRN FEVER Artificial Tears 1 drop 03/04/20 20:04 Artificial Tears OU BID PRN DRY EYES Docusate Sodium 100 mg 03/04/20 20:04 03/07/20 09:28 Colace - PO 100 mg BID PRN Administration CONSTIPATION Furosemide 60 mg 03/17/20 17:36 03/20/20 13:09 Lasix - PO 60 mg BID@0600,1400 TAMMY Administration Ampicillin Sodium/Sulbactam 100 mls @ 200 mls/hr 03/11/20 15:15 03/20/20 09:29 Sodium 1.5 gm/ Sodium Chloride IVPB 200 mls/hr Q8H-IV TAMMY Administration Vancomycin HCl 1,000 mg in 250 mls @ 166.667 mls/hr 03/13/20 13:15 03/19/20 14:02 Vancomycin (Pre-Docked) IVPB 166.667 mls/hr Q24H T[facility] Administration Protocol Lactulose 20 gm 03/13/20 22:00 03/20/20 09:30 Cephulac (Oral Use) PO Not Given BID [facility] Metoprolol Succinate 12.5 mg 03/06/20 11:03 03/20/20 09:30 Toprol Xl - PO 12.5 mg DAILY [facility] Administration Rifaximin 550 mg 03/04/20 22:00 03/20/20 09:30 Xifaxan - PO 550 mg BID [facility] Administration Spironolactone 50 mg 03/06/20 22:00 03/20/20 09:31 Aldactone - PO 50 mg BID [facility] Administration Tramadol HCl 50 mg 03/11/20 10:35 Ultram - PO Q8H PRN PAIN LEVEL 6-10 Impression 1. CKD 2. ascites 3. liver cirrhosis 4. ileus 5. microscopic hematuria 6. fluid overload 7. a-fib 8. hyperkalemia 9. vaginal spotting Plan - pt getting prbc - cont lasix - cont aldactone - check weights - volume status improving - cont lactulose and rifiximin
[2020-03-20] MEDS: VANCOMYCIN 1 GRAM (PRE-DOCKED) 1,000 MG/250 ML BAG IVPB SCH (16:26)
--- NOTE | 2020-03-20 19:39 | PN ---
Teaching Attending Note Name of Resident: Gus Kelly ATTENDING PHYSICIAN STATEMENT I saw and evaluated the patient. I reviewed the resident's note and discussed the case with the resident. I agree with the resident's findings and plan as documented. 74 y.o. F w/ PMHx. of Cirrhosis(KING w/ ascites and Hx. of HE), HFpEF, Afib(was on reduced dose Eliquis), CKD (Stage 3), Venous insufficiency, HTN, anemia, and thrombocytopenia presented with increased abdominal swelling. Worsening anemia and vaginal bleeding. Initially following for likely anemia of chronic disease, and thrombocytopenia thought to be related to cirrhosis. While inpt developed significant vaginal bleeding. No prior h/o abnormal clinical bleeding. Current bleeding likely multifactorial including thrombocytopenia(chronic), and or liver disease. Noted to have elevated PT/INR, tx'd with vit K some improvement, however PT/INR remains at 17.5/1.4. Was tx'd previously for possible DIC, had low fibrinogen, responded to cryoprecipitate. Transfuse 03/19 for hgb 6.4, now at 7.2 Pt reports no vaginal bleeding today. PT mixing studies and factor levels pending. Last dose of apixaban was on 03-11-2020. -prbc transfusion for hgb<7.0 -f/u PT mixing studies. -f/u factor V, VIII, X levels. -follow fibrinogen. -transfuse 1 unit plts if vaginal bleeding persists. -PT mixing study if PT/INR remain elevated. -d/w House Staff
[2020-03-21] MEDS ORDERED: SODIUM CHLORIDE 100 ML IVPB ONE ×2 (01:34→08:44)
[2020-03-21] MEDS ORDERED: AMPICILLIN NA/SULBACTAM NA 1.5 GM VIAL ONE ×2 (01:34→08:44)
[2020-03-21] MEDS: AMPICILLIN NA/SULBACTAM NA 1.5 GM in SODIUM CHLORIDE 100 ML IVPB SCH ×2 (01:38→09:17)
[2020-03-21] MEDS: FUROSEMIDE 40 MG TABLET (FP) PO SCH ×2 (05:56→14:34)
[2020-03-21 07:33] LABS: BASO % 0.6 % (0-2.0); EOS % 4.1 % (0-4.5); HEMATOCRIT 23.9 % (32.4-45.2); HEMOGLOBIN 8.1 GM/dL (10.7-15.3); LYMPH % 20.2 % (8-40); MCH 30.9 pg (25.7-33.7); MCHC 33.9 g/dl (32.0-36.0); MEAN CELL VOLUME 91.3 fl (80-96); MEAN PLT VOLUME 9.9 fl (7.5-11.1); NEUT % 64.1 % (42.8-82.8); PLATELET COUNT 75 K/MM3 (134-434); RBC 2.62 M/mm3 (3.60-5.2); RDW 16.7 % (11.6-15.6); WHITE BLOOD COUNT 5.7 K/mm3 (4.0-10.0)
[2020-03-21 07:35] LABS: INR 1.64 (0.83-1.09); PROTHROMBIN TIME (PATIENT) 19.5 SEC (9.7-13.0)
[2020-03-21 07:53] LABS: BILIRUBIN,TOTAL 2.3 mg/dL (0.2-1); CALCIUM 8.1 mg/dL (8.5-10.1); CREATININE 1.6 mg/dL (0.55-1.3); POTASSIUM 3.6 mmol/L (3.5-5.1)
[2020-03-21 08:40] VITALS: TEMP 97.8
[2020-03-21] MEDS: RIFAXIMIN 550 MG TABLET (UD) PO SCH (09:17)
[2020-03-21] MEDS: metoPROLOL SUCCINATE 25 MG TAB.SR.24H (FP) PO SCH (09:18)
[2020-03-21] MEDS: SPIRONOLACTONE 25 MG TABLET PO SCH (09:18)
[2020-03-21] MEDS: LACTULOSE 20 GM/30 ML UDC (FOR ORAL USE ONLY) PO SCH (09:18)
--- NOTE | 2020-03-21 09:53 | PN ---
Progress Note, Physician Chief Complaint: Ascites Cryptogenic cirrhosis CKD History of Present Illness: NAD, sitting in a chair BC + bacillus species, awaiting [facility] results on final culture UC + ESBL Still has some vaginal bleeding,spotting, slowed dramatically after cryo H/H improved Last Eliquis dose was 03/11/20 @ 2100 Has been getting Vit K SQ 10 mg daily, last dose 03/16/20 -Plt 81 today INR 1.62 today Seen by COAT ROOM ATTENDANT- considered high risk for surgery, deferred at this time to tertiary care center, pt need hepatology on board Hg-8.1 S/P 10 units cryoprecipitate for fibrinogen <100 S/P 3 U of PRBC + 2 U of Plts in total during her stay this admission Pt's son HCP- Oscar Rodgers, wants to transfer pt to [facility], Transfer initiated and accepted. - Current Medication List Current Medications: Active Medications Acetaminophen (Tylenol -) 650 mg PO Q6H PRN PRN Reason: FEVER Artificial Tears (Artificial Tears) 1 drop OU BID PRN PRN Reason: DRY EYES Docusate Sodium (Colace -) 100 mg PO BID PRN PRN Reason: CONSTIPATION Last Admin: 03/07/20 09:28 Dose: 100 mg Documented by: Furosemide (Lasix -) 60 mg PO BID@0600,1400 [facility] Last Admin: 03/21/20 05:56 Dose: 60 mg Documented by: Ampicillin Sodium/Sulbactam (Sodium 1.5 gm/ Sodium Chloride) 100 mls @ 200 mls /hr IVPB Q8H-IV [facility] Last Admin: 03/21/20 09:17 Dose: 200 mls/hr Documented by: Vancomycin HCl (Vancomycin (Pre-Docked)) 1,000 mg in 250 mls @ 166.667 mls/hr IVPB Q24H [facility]; Protocol Last Admin: 03/20/20 16:26 Dose: 166.667 mls/hr Documented by: Lactulose (Cephulac (Oral Use)) 20 gm PO BID [facility] Last Admin: 03/21/20 09:18 Dose: Not Given Documented by: Metoprolol Succinate (Toprol Xl -) 12.5 mg PO DAILY [facility] Last Admin: 03/21/20 09:18 Dose: 12.5 mg Documented by: Rifaximin (Xifaxan -) 550 mg PO BID [facility] Last Admin: 03/21/20 09:17 Dose: 550 mg Documented by: Spironolactone (Aldactone -) 50 mg PO BID [facility] Last Admin: 03/21/20 09:18 Dose: 50 mg Documented by: Tramadol HCl (Ultram -) 50 mg PO Q8H PRN PRN Reason: PAIN LEVEL 6-10 - Objective Vital Signs: Vital Signs Temperature 97.8 F 03/21/20 08:36 Pulse Rate 73 03/21/20 08:36 Respiratory Rate 18 03/21/20 08:36 Blood Pressure 93/44 L 03/21/20 08:36 O2 Sat by Pulse Oximetry (%) 96 03/21/20 08:36 Constitutional: Yes: Well Nourished, No Distress, Calm, Obese Cardiovascular: Yes: Regular Rate and Rhythm, Murmur (Grade IV/ diastolic murmur) Respiratory: Yes: Regular, CTA Bilaterally Gastrointestinal: Yes: Normal Bowel Sounds, Soft, Abdomen, Obese, Ascites (RLQ) Genitourinary: Yes: Incontinence Musculoskeletal: Yes: Muscle Weakness Extremities: Yes: WNL Edema: Yes Edema: LLE: 2+, RLE: 2+ Peripheral Pulses WNL: Yes Neurological: Yes: Alert, Oriented Psychiatric: Yes: Alert, Oriented Labs: CBC, BMP 03/21/20 06:00 03/21/20 06:20 INR, PTT INR 1.64 (0.83-1.09) H 03/21/20 06:20 Fibrinogen 142.0 mg/dL (238-498) L 03/21/20 06:20 Problem List - Problems (1) Afib Assessment/Plan: -Chronic, rate controlled -Hold Eliquis due to vaginal bleed Problems reviewed: Yes Code(s): I48.91 - UNSPECIFIED ATRIAL FIBRILLATION (2) Anemia Assessment/Plan: -acute vs Chronic -2/2 to chronic liver disease -Still continues to Vaginally bleed -COAT ROOM ATTENDANT consult appreciated -CA 125 elevated -Monitor trend -Transfuse only if Hg<7.0 to avoid fluid overload -Transfuse 1 U of PRBC today again -S/P Cryo 10 units on 03/19 -S/P 1 unit of PRBC yesterday -To be transfered to tertiary care center where there is Liver team. Problems reviewed: Yes Code(s): D64.9 - ANEMIA, UNSPECIFIED (3) CKD (chronic kidney disease) Assessment/Plan: -nephrology consult -Continue furosemide 40 mg PO BID -Continue Spironolactone 50 mg po daily Problems reviewed: Yes Code(s): N18.9 - CHRONIC KIDNEY DISEASE, UNSPECIFIED (4) Cryptogenic cirrhosis Assessment/Plan: -GI consult -Continue lactulose + rifaxamin Problems reviewed: Yes Code(s): K74.69 - OTHER CIRRHOSIS OF LIVER (5) Edema of abdominal wall Assessment/Plan: -improved -Continue Furosemide 40 mg PO BID -Continue spironolactone Problems reviewed: Yes Code(s): R60.0 - LOCALIZED EDEMA (6) Lactic acidosis Assessment/Plan: -chronic -Repeat CXR-negative -Cultures: Microbiology 03/11/20 16:10 Blood - Peripheral Venous Blood Culture - Preliminary NO GROWTH OBTAINED AFTER 48 HOURS, INCUBATION TO CONTINUE FOR 3 DAYS. 03/11/20 16:40 Blood - Peripheral Venous Blood Culture - Preliminary NO GROWTH OBTAINED AFTER 48 HOURS, INCUBATION TO CONTINUE FOR 3 DAYS. 03/10/20 16:15 Urine - Urine Flores Urine Culture - Final Klebsiella Pneumoniae - Esbl 03/10/20 06:20 Blood - Peripheral Venous Blood Culture - Preliminary Bacillus Species, Not Antracis 03/10/20 06:15 Blood - Peripheral Venous Blood Culture - Preliminary Bacillus Species, Not Antracis 03/02/20 13:54 Urine - Urine Clean Catch Urine Culture - Final NO GROWTH OBTAINED Problems reviewed: Yes Code(s): E87.2 - ACIDOSIS (7) Vaginal bleeding Assessment/Plan: -Transvaginal U/S reviewed-complex fluid indicating blood- no lesion were able to be determined -COAT ROOM ATTENDANT consult appreciated -CA125 elevated- not true value in light of cirrhosis -If pt continues to bleed despite holding eliquis, would need D&C or hysteroscopy -S/P Cryo on 03/19/20 -S/P 1 U PRBC yesterday -will monitor daily INR and CBC's -INR goal close to 1.5 -Transfer to [facility] under Dr Yari Coughlin MD Problems reviewed: Yes Code(s): N93.9 - ABNORMAL UTERINE AND VAGINAL BLEEDING, UNSPECIFIED (8) Bacteremia Assessment/Plan: -ID consult -IV abx-completed 12 days of Vancomycin- d/c and observe off -December d/c Unasyn as well and observe -Afebrile -Awaiting final cultures fro [place] -ID did not recommend any more abx Problems reviewed: Yes Code(s): R78.81 - BACTEREMIA (9) UTI (urinary tract infection) Assessment/Plan: -UC: ESBL-likely colonizing -ID on board Problems reviewed: Yes Code(s): N39.0 - URINARY TRACT INFECTION, SITE NOT SPECIFIED Assessment/Plan See problem list Spoke to cait Moore about pt status. Transfer to be arranged by [facility] via [facility]- Dr Yari Coughlin MD is the accepting physician.
--- NOTE | 2020-03-21 10:50 | PN ---
Progress Note, Physician History of Present Illness: PULMONARY ALERT,OOB-CHAIR,COMFORTABLE,-SOB - Current Medication List Current Medications: Active Medications Acetaminophen (Tylenol -) 650 mg PO Q6H PRN PRN Reason: FEVER Artificial Tears (Artificial Tears) 1 drop OU BID PRN PRN Reason: DRY EYES Docusate Sodium (Colace -) 100 mg PO BID PRN PRN Reason: CONSTIPATION Last Admin: 03/07/20 09:28 Dose: 100 mg Documented by: Furosemide (Lasix -) 60 mg PO BID@0600,1400 [facility] Last Admin: 03/21/20 05:56 Dose: 60 mg Documented by: Ampicillin Sodium/Sulbactam (Sodium 1.5 gm/ Sodium Chloride) 100 mls @ 200 mls/hr IVPB Q8H-IV [facility] Last Admin: 03/21/20 09:17 Dose: 200 mls/hr Documented by: Vancomycin HCl (Vancomycin (Pre-Docked)) 1,000 mg in 250 mls @ 166.667 mls/hr IVPB Q24H [facility]; Protocol Last Admin: 03/20/20 16:26 Dose: 166.667 mls/hr Documented by: Lactulose (Cephulac (Oral Use)) 20 gm PO BID [facility] Last Admin: 03/21/20 09:18 Dose: Not Given Documented by: Metoprolol Succinate (Toprol Xl -) 12.5 mg PO DAILY [facility] Last Admin: 03/21/20 09:18 Dose: 12.5 mg Documented by: Rifaximin (Xifaxan -) 550 mg PO BID [facility] Last Admin: 03/21/20 09:17 Dose: 550 mg Documented by: Spironolactone (Aldactone -) 50 mg PO BID [facility] Last Admin: 03/21/20 09:18 Dose: 50 mg Documented by: Tramadol HCl (Ultram -) 50 mg PO Q8H PRN PRN Reason: PAIN LEVEL 6-10 - Objective Vital Signs: Vital Signs Temperature 97.8 F 03/21/20 08:36 Pulse Rate 73 03/21/20 08:36 Respiratory Rate 18 03/21/20 09:00 Blood Pressure 93/44 L 03/21/20 08:36 O2 Sat by Pulse Oximetry (%) 96 03/21/20 09:00 Constitutional: Yes: Well Nourished, Calm Eyes: Yes: WNL HENT: Yes: WNL Neck: Yes: WNL Cardiovascular: Yes: Pulse Irregular, S1, S2 Respiratory: Yes: CTA Bilaterally Gastrointestinal: Yes: Normal Bowel Sounds, Soft Extremities: Yes: WNL Edema: Yes Labs: CBC, BMP 03/21/20 06:00 03/21/20 06:20 INR, PTT INR 1.64 (0.83-1.09) H 03/21/20 06:20 Fibrinogen 142.0 mg/dL (238-498) L 03/21/20 06:20 Assessment/Plan Problem List - Problems (1) Afib Code(s): I48.91 - UNSPECIFIED ATRIAL FIBRILLATION (2) Anemia Code(s): D64.9 - ANEMIA, UNSPECIFIED (3) Ascites Code(s): R18.8 - OTHER ASCITES Qualifiers: Ascites type: other type Qualified Code(s): R18.8 - Other ascites (4) CKD (chronic kidney disease) Code(s): N18.9 - CHRONIC KIDNEY DISEASE, UNSPECIFIED (5) Chronic liver disease and cirrhosis Code(s): K74.60 - UNSPECIFIED CIRRHOSIS OF LIVER; K76.9 - LIVER DISEASE, UNSPECIFIED (6) Cirrhosis of liver with ascites Code(s): K74.60 - UNSPECIFIED CIRRHOSIS OF LIVER; R18.8 - OTHER ASCITES (7) Cor pulmonale Code(s): I27.81 - COR PULMONALE (CHRONIC) (8) Cryptogenic cirrhosis Code(s): K74.69 - OTHER CIRRHOSIS OF LIVER (9) Edema Code(s): R60.9 - EDEMA, UNSPECIFIED (10) Edema of abdominal wall Code(s): R60.0 - LOCALIZED EDEMA (11) HTN (hypertension) Code(s): I10 - ESSENTIAL (PRIMARY) HYPERTENSION (12) Hypotension Code(s): I95.9 - HYPOTENSION, UNSPECIFIED (13) 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 Assessment/Plan A/P Volume Overload improving Ascites CKD Liver Cirrhosis Atrial Fibrillation LV Diastolic Dysfunction HTN Anemia Thrombocytopenia Vaginal bleeding - continue lasix, aldactone - monitor urine output, creatinine,h+h - daily weights - O2 as needed - rate controlled - Lacshelly DOLAN
--- NOTE | 2020-03-21 11:23 | PN.GI ---
GI Progress Note Subjective: GI NOte: Minimal vaginal bleeding today. Received another unit PRBCs. Anticipating transfer to the liver service at [facility]. Weight steady at 207 lbs. - Objective Vital Signs: Vital Signs Temperature 97.8 F 03/21/20 08:36 Pulse Rate 73 03/21/20 08:36 Respiratory Rate 18 03/21/20 09:00 Blood Pressure 93/44 L 03/21/20 08:36 O2 Sat by Pulse Oximetry (%) 96 03/21/20 09:00 Laboratory Tests 03/16/20 03/16/20 03/18/20 06:03 06:03 06:35 Hgb 7.2 L Total Bilirubin 1.5 H 2.1 H Alkaline Phosphatase 122 H 103 03/19/20 03/19/20 03/20/20 05:25 05:25 06:18 Hgb 6.4 L* 7.2 L Total Bilirubin 1.8 H Alkaline Phosphatase 90 03/20/20 03/21/20 03/21/20 06:18 06:00 06:20 Hgb 8.1 L Total Bilirubin 2.5 H 2.3 H Alkaline Phosphatase 99 126 H Constitutional: Calm ...Auscultate: Yes: Normoactive Bowel Sounds ...Palpate: Yes: Soft, Other (nontender) Labs: CBC, BMP 03/21/20 06:00 03/21/20 06:20 INR, PTT INR 1.64 (0.83-1.09) H 03/21/20 06:20 Fibrinogen 142.0 mg/dL (238-498) L 03/21/20 06:20 Assessment/Plan Impression: - Vaginal, not rectal bleeding - Cirrhosis secondary to KING with hepatic encephalopathy, thrombocytopenia, portal vein thrombosis and ascites that is responding oral diuretics while in the hospital - Gram pos bacteremia ? origin Plan: - Anticipating transfer to the Liver Service at [facility] where TIPs can be considered - Continue diuretic regimen, lactulose and xifaxan - Antibiotics as per ID Problem List - Problems (1) Vaginal bleeding Code(s): N93.9 - ABNORMAL UTERINE AND VAGINAL BLEEDING, UNSPECIFIED (2) 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 steatohepatitis) Code(s): K75.81 - NONALCOHOLIC STEATOHEPATITIS (KING); K74.60 - UNSPECIFIED CIRRHOSIS OF LIVER (3) Portal vein thrombosis Code(s): I81 - PORTAL VEIN THROMBOSIS (4) Thrombocytopenia Code(s): D69.6 - THROMBOCYTOPENIA, UNSPECIFIED (5) Hepatic encephalopathy Code(s): K72.90 - HEPATIC FAILURE, UNSPECIFIED WITHOUT COMA (6) Edema Code(s): R60.9 - EDEMA, UNSPECIFIED (7) CKD (chronic kidney disease) Code(s): N18.9 - CHRONIC KIDNEY DISEASE, UNSPECIFIED (8) Cirrhosis of liver with ascites Code(s): K74.60 - UNSPECIFIED CIRRHOSIS OF LIVER; R18.8 - OTHER ASCITES (9) Edema of abdominal wall Code(s): R60.0 - LOCALIZED EDEMA (10) Paroxysmal atrial fibrillation with rapid ventricular response Code(s): I48.0 - PAROXYSMAL ATRIAL FIBRILLATION
[2020-03-21] MEDS: VANCOMYCIN 1 GRAM (PRE-DOCKED) 1,000 MG/250 ML BAG IVPB SCH (14:35)
[2020-03-21 15:30] VITALS: BP 91/58; PULSE 69
--- NOTE | 2020-03-21 15:58 | PN ---
Progress Note, Physician History of Present Illness: AWAKE, SEATED IN BED NO RECURRENT RIGORS NO FEVER [facility] VERBALLY REPORTS BLOOD ISOLATE IDENTIFIED BACILLUS CEREUS DAY # 12 VANCOMYCIN - Current Medication List Current Medications: Active Medications Acetaminophen (Tylenol -) 650 mg PO Q6H PRN PRN Reason: FEVER Artificial Tears (Artificial Tears) 1 drop OU BID PRN PRN Reason: DRY EYES Docusate Sodium (Colace -) 100 mg PO BID PRN PRN Reason: CONSTIPATION Last Admin: 03/07/20 09:28 Dose: 100 mg Documented by: Furosemide (Lasix -) 60 mg PO BID@0600,1400 [facility] Last Admin: 03/21/20 14:34 Dose: 60 mg Documented by: Ampicillin Sodium/Sulbactam (Sodium 1.5 gm/ Sodium Chloride) 100 mls @ 200 mls/hr IVPB Q8H-IV [facility] Last Admin: 03/21/20 09:17 Dose: 200 mls/hr Documented by: Vancomycin HCl (Vancomycin (Pre-Docked)) 1,000 mg in 250 mls @ 166.667 mls/hr IVPB Q24H [facility]; Protocol Last Admin: 03/21/20 14:35 Dose: 166.667 mls/hr Documented by: Lactulose (Cephulac (Oral Use)) 20 gm PO BID [facility] Last Admin: 03/21/20 09:18 Dose: Not Given Documented by: Metoprolol Succinate (Toprol Xl -) 12.5 mg PO DAILY [facility] Last Admin: 03/21/20 09:18 Dose: 12.5 mg Documented by: Rifaximin (Xifaxan -) 550 mg PO BID [facility] Last Admin: 03/21/20 09:17 Dose: 550 mg Documented by: Spironolactone (Aldactone -) 50 mg PO BID [facility] Last Admin: 03/21/20 09:18 Dose: 50 mg Documented by: Tramadol HCl (Ultram -) 50 mg PO Q8H PRN PRN Reason: PAIN LEVEL 6-10 - Objective Vital Signs: Vital Signs Temperature 97.8 F 03/21/20 15:28 Pulse Rate 69 03/21/20 15:28 Respiratory Rate 20 03/21/20 15:28 Blood Pressure 91/58 L 03/21/20 15:28 O2 Sat by Pulse Oximetry (%) 96 03/21/20 09:00 Constitutional: Yes: No Distress, Obese Cardiovascular: Yes: Regular Rate and Rhythm, S1, S2 Respiratory: Yes: CTA Bilaterally Gastrointestinal: Yes: Normal Bowel Sounds, Soft, Abdomen, Obese. No: Tenderness Labs: CBC, BMP 03/21/20 06:00 03/21/20 06:20 INR, PTT INR 1.64 (0.83-1.09) H 03/21/20 06:20 Fibrinogen 142.0 mg/dL (238-498) L 03/21/20 06:20 Assessment/Plan GRAM POS SISI BACTEREMIA ? 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
--- NOTE | 2020-03-21 16:14 | PN ---
Progress Note, Physician History of Present Illness: Pt seen and examined at bedside. She is awake and alert. She denies shortness of breath. - Current Medication List Current Medications: Active Medications Acetaminophen (Tylenol -) 650 mg PO Q6H PRN PRN Reason: FEVER Artificial Tears (Artificial Tears) 1 drop OU BID PRN PRN Reason: DRY EYES Docusate Sodium (Colace -) 100 mg PO BID PRN PRN Reason: CONSTIPATION Last Admin: 03/07/20 09:28 Dose: 100 mg Documented by: Furosemide (Lasix -) 60 mg PO BID@0600,1400 TAMMY Last Admin: 03/21/20 14:34 Dose: 60 mg Documented by: Ampicillin Sodium/Sulbactam (Sodium 1.5 gm/ Sodium Chloride) 100 mls @ 200 mls/hr IVPB Q8H-IV TAMMY Last Admin: 03/21/20 09:17 Dose: 200 mls/hr Documented by: Vancomycin HCl (Vancomycin (Pre-Docked)) 1,000 mg in 250 mls @ 166.667 mls/hr IVPB Q24H TAMMY; Protocol Last Admin: 03/21/20 14:35 Dose: 166.667 mls/hr Documented by: Lactulose (Cephulac (Oral Use)) 20 gm PO BID [facility] Last Admin: 03/21/20 09:18 Dose: Not Given Documented by: Metoprolol Succinate (Toprol Xl -) 12.5 mg PO DAILY [facility] Last Admin: 03/21/20 09:18 Dose: 12.5 mg Documented by: Rifaximin (Xifaxan -) 550 mg PO BID [facility] Last Admin: 03/21/20 09:17 Dose: 550 mg Documented by: Spironolactone (Aldactone -) 50 mg PO BID [facility] Last Admin: 03/21/20 09:18 Dose: 50 mg Documented by: Tramadol HCl (Ultram -) 50 mg PO Q8H PRN PRN Reason: PAIN LEVEL 6-10 - Objective Vital Signs: Vital Signs Temperature 97.8 F 03/21/20 15:28 Pulse Rate 69 03/21/20 15:28 Respiratory Rate 20 03/21/20 15:28 Blood Pressure 91/58 L 03/21/20 15:28 O2 Sat by Pulse Oximetry (%) 96 03/21/20 09:00 Constitutional: Yes: Calm Eyes: Yes: Conjunctiva Clear HENT: Yes: Atraumatic Neck: Yes: Supple Cardiovascular: Yes: S1, S2 Respiratory: Yes: CTA Bilaterally Gastrointestinal: Yes: Normal Bowel Sounds, Soft Genitourinary: Yes: WNL Musculoskeletal: Yes: WNL Edema: Yes Edema: LLE: 1+, RLE: 1+ Integumentary: Yes: WNL Neurological: Yes: Oriented Psychiatric: Yes: Oriented Labs: CBC, BMP 03/21/20 06:00 03/21/20 06:20 INR, PTT INR 1.64 (0.83-1.09) H 03/21/20 06:20 Fibrinogen 142.0 mg/dL (238-498) L 03/21/20 06:20 Problem List - Problems (1) CHF (congestive heart failure) Code(s): I50.9 - HEART FAILURE, UNSPECIFIED Qualifiers: Heart failure type: unspecified Heart failure chronicity: unspecified Qualified Code(s): I50.9 - Heart failure, unspecified (2) Lactic acidosis Code(s): E87.2 - ACIDOSIS Assessment/Plan Current Medications Generic Name Dose Route Start Last Admin Trade Name Freq PRN Reason Stop Dose Admin Acetaminophen 650 mg 03/04/20 20:04 Tylenol - PO Q6H PRN FEVER Artificial Tears 1 drop 03/04/20 20:04 Artificial Tears OU BID PRN DRY EYES Docusate Sodium 100 mg 03/04/20 20:04 03/07/20 09:28 Colace - PO 100 mg BID PRN Administration CONSTIPATION Furosemide 60 mg 03/17/20 17:36 03/21/20 14:34 Lasix - PO 60 mg BID@0600,1400 TAMMY Administration Ampicillin Sodium/Sulbactam 100 mls @ 200 mls/hr 03/11/20 15:15 03/21/20 09:17 Sodium 1.5 gm/ Sodium Chloride IVPB 200 mls/hr Q8H-IV TAMMY Administration Vancomycin HCl 1,000 mg in 250 mls @ 166.667 mls/hr 03/13/20 13:15 03/21/20 14:35 Vancomycin (Pre-Docked) IVPB 166.667 mls/hr Q24H TAMMY Administration Protocol Lactulose 20 gm 03/13/20 22:00 03/21/20 09:18 Cephulac (Oral Use) PO Not Given BID [facility] Metoprolol Succinate 12.5 mg 03/06/20 11:03 03/21/20 09:18 Toprol Xl - PO 12.5 mg DAILY TAMMY Administration Rifaximin 550 mg 03/04/20 22:00 03/21/20 09:17 Xifaxan - PO 550 mg BID [facility] Administration Spironolactone 50 mg 03/06/20 22:00 03/21/20 09:18 Aldactone - PO 50 mg BID [facility] Administration Tramadol HCl 50 mg 03/11/20 10:35 Ultram - PO Q8H PRN PAIN LEVEL 6-10 Impression 1. CKD 2. ascites 3. liver cirrhosis 4. ileus 5. microscopic hematuria 6. fluid overload 7. a-fib 8. hyperkalemia 9. 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
== END 2020-03-21 17:22 | disposition short-term general hospital (02) | DRG 432 ==
LOC: JER 12:22 → JERBED 16:07 → J4S 03-04 02:13 → J7W 03-04 19:57
PROVIDERS: ADMIT Family Medicine; ATTEND Family Medicine
PROC: 30233N1 Transfusion of Nonautologous Red Blood Cells into Peripheral Vein, Percutaneous Approach (ICD-10-PCS; 2020-03-04)
PROC: 30233R1 Transfusion of Nonautologous Platelets into Peripheral Vein, Percutaneous Approach (ICD-10-PCS; principal; 2020-03-15)
DX: K74.69 Other cirrhosis of liver (principal); I81 Portal vein thrombosis; I13.0 Hypertensive heart and chronic kidney disease with heart failure and stage 1 through stage 4 chronic kidney disease, or unspecified chronic kidney disease; R18.8 Other ascites; I50.32 Chronic diastolic (congestive) heart failure; N39.0 Urinary tract infection, site not specified; E87.2 Acidosis; K56.7 Ileus, unspecified; R78.81 Bacteremia; D62 Acute posthemorrhagic anemia; D68.8 Other specified coagulation defects; I48.91 Unspecified atrial fibrillation; I48.0 Paroxysmal atrial fibrillation; K75.81 Nonalcoholic steatohepatitis (NASH); N93.9 Abnormal uterine and vaginal bleeding, unspecified; K57.30 Diverticulosis of large intestine without perforation or abscess without bleeding; D63.1 Anemia in chronic kidney disease; D69.6 Thrombocytopenia, unspecified; E87.70 Fluid overload, unspecified; E66.01 Morbid (severe) obesity due to excess calories; N18.3 Chronic kidney disease, stage 3 (moderate); K72.90 Hepatic failure, unspecified without coma; K74.60 Unspecified cirrhosis of liver; E87.5 Hyperkalemia; R31.29 Other microscopic hematuria; M54.6 Pain in thoracic spine; I73.9 Peripheral vascular disease, unspecified; I95.9 Hypotension, unspecified; B96.20 Unspecified Escherichia coli [E. coli] as the cause of diseases classified elsewhere; D73.1 Hypersplenism; Z68.36 Body mass index [BMI] 36.0-36.9, adult
CPT/HCPCS: 36415; 36430; 36511; 71045-TC-FY; 76705-TC; 76830-TC; 80053; 80061; 81003; 82140; 82272; 82550; 82607; 82728; 82746; 82784; 82962; 83036; 83540; 83550; 83605; 83615; 83690; 83721; 83735; 83880; 83883; 84100; 84155; 84165; 84439; 84443; 84484; 85025; 85027; 85044; 85240; 85260; 85384; 85610; 85730; 86304; 86850; 86880; 86900; 86901; 86922; 87040; 87077; 87086; 87186; 93005; 93010; 93306-TC; 97116-GP; 97161-GP; 99285-25; G0480; P9012; P9017; P9034; P9038; P9047; P9058; U0003

== ENCOUNTER 2020-04-19 02:44 | Inpatient (IN) | payer OTHER ==
--- NOTE | 2020-04-19 03:36 | PDOC ---
Attending Attestation - Resident Resident Name: Torie Sullivan - HPI HPI: 04/19/20 07:09 Pt presents to the ED after sent in by son for altered mental status, now resolved. patient has no memory of events. 04/24/20 08:03 04/24/20 08:03 - Physicial Exam PE: 04/24/20 08:04 Agree with resident exam. Gen: alert, NAD. CV rrr no m/r/g pulm ct b/l abdomen soft, non tender, non distended no guarding or rebound - Medical Decision Making 04/24/20 08:03 Pt presents to the ED after sent in by her son for altered mental status, now apparently resolved. Differential diagnosis included intracrainial mass or b leed, metabolic derrangement, hepatic encephalopathy. CT head negative. Amonia is high. Will treat with lactulose and admit to medicine. 04/24/20 07:50 Discharge - Discharge Information Problems reviewed: Yes Clinical Impression/Diagnosis: Increased ammonia level Altered mental status Qualifiers: Altered mental status type: unspecified Qualified Code(s): R41.82 - Altered mental status, unspecified Syncope Qualifiers: Syncope type: unspecified Qualified Code(s): R55 - Syncope and collapse Condition: Stable - Follow up/Referral - Patient Discharge Instructions - Post Discharge Activity
--- NOTE | 2020-04-19 03:55 | PDOC ---
History of Present Illness - General Chief Complaint: Altered Mental Status Stated Complaint: AMS Time Seen by Provider: 04/19/20 03:36 - History of Present Illness Initial Comments: 04/19/20 03:54 74 y.o. F w/ PMHx. of Cirrhosis(KING w/ ascites and Hx. of HE), HFpEF, Afib(was on reduced dose Eliquis), CKD (Stage 3), Venous insufficiency, HTN, anemia, and thrombocytopenia. presents via EMS with AMS. ems reports she was found on the floor by her son. pt is not aware of how sequenc of events happened and only remembers being on the ambulance. She is able to recall that she takes blood pressure medication and lactulose on a daily basis.She denies headache, chest pain, SOB, abdominal pain, she is alert and oriented to person and place. PMHx: as noted above ROS: as noted SHx: Denies Etoh, IVDA, tobacco use Allergies: NKDA ROS: GENERAL/CONSTITUTIONAL: No fever or chills. No weakness. HEAD, EYES, EARS, NOSE AND THROAT: No change in vision. No ear pain or discharge. No sore throat. CARDIOVASCULAR: No chest pain or shortness of breath RESPIRATORY: No cough, wheezing, or hemoptysis. GASTROINTESTINAL: No nausea, vomiting, diarrhea or constipation. GENITOURINARY: No dysuria, frequency, or change in urination. MUSCULOSKELETAL: No joint or muscle swelling or pain. No neck or back pain. SKIN: No rash NEUROLOGIC: No headache, vertigo, loss of consciousness, or change in strength/sensation. ENDOCRINE: No increased thirst. No abnormal weight change HEMATOLOGIC/LYMPHATIC: No anemia, easy bleeding, or history of blood clots. ALLERGIC/IMMUNOLOGIC: No hives or skin allergy. PE: GENERAL: Awake, alert, and fully oriented, in no acute distress HEAD: No signs of trauma, normocephalic, atraumatic EYES: PERRLA, EOMI, sclera anicteric, conjunctiva clear ENT: Auricles normal inspection, hearing grossly normal, nares patent, oropharynx clear without exudates. Moist mucosa NECK: Normal ROM, supple, no lymphadenopathy, JVD, or masses LUNGS: No distress, speaks full sentences, clear to auscultation bilaterally HEART: Regular rate and rhythm, normal S1 and S2, no murmurs, rubs or gallops, peripheral pulses normal and equal bilaterally. ABDOMEN: Soft, nontender, normoactive bowel sounds. No guarding, no rebound. N o masses EXTREMITIES : pitting edema bilaterally 3+ to below the knee. NEUROLOGICAL: Cranial nerves II through XII grossly intact. Normal speech, normal gait, no focal sensorimotor deficits SKIN: Warm, Dry, normal turgor, no rashes or lesions noted 04/19/20 04:56 Past History - Medical History Allergies/Adverse Reactions: Allergies Allergy/AdvReac Type Severity Reaction Status Date / Time No Known Allergies Allergy Verified 03/02/20 12:42 Home Medications: Ambulatory Orders Furosemide 40 mg PO BID 04/19/20 Lactulose (Oral Use) [Cephulac -] 20 gm PO QID 04/19/20 Metoprolol Tartrate 25 mg PO DAILY 04/19/20 Rifaximin [Xifaxan] 550 mg PO DAILY 04/19/20 Spironolactone 100 mg PO DAILY 04/19/20 Anemia: Yes (Thrombocytopenia) Asthma: No Cancer: No Cardiac Disorders: Yes (Paroxysmal A-fib) CVA: No COPD: No CHF: Yes Dementia: Yes Diabetes: No GI Disorders: Yes (GERD) Disorders: No HTN: Yes Hypercholesterolemia: Yes Liver Disease: Yes (Cirrhosis) Psychiatric Problems: Yes (Dementia) Seizures: No Thyroid Disease: No - Surgical History Abdominal Surgery: No Appendectomy: No Cardiac Surgery: No Cholecystectomy: No Lung Surgery: No Neurologic Surgery: No Orthopedic Surgery: No - Reproductive History Is Patient Now?: No - Immunization History Immunization Up to Date: Yes - Psycho-Social/Smoking History Smoking Status: No Smoking History: Never smoked Years of Tobacco Use: 10 Have you smoked in the past 12 months: No Number of Cigarettes Smoked Daily: 0 Information on smoking cessation initiated: No - Substance Abuse Hx (Audit-C & DAST Scrn) How often the patient has a drink containing alcohol: Never Score: In Men: 4 or > Positive; In Women: 3 or > Positive: 0 Screen Result (Pos requires Nsg. Audit-10AR): Negative In the last yr the pt used illegal drug/Rx for NonMed reason: No Score: Yes response is considered Positive: 0 Screen Result (Positive result requires Nsg. DAST-10): Negative *Physical Exam - Vital Signs Last Vital Signs Temp Pulse Resp BP Pulse Ox 97.5 F L 68 20 97/57 L 100 04/19/20 03:28 04/19/20 03:28 04/19/20 03:28 04/19/20 03:28 04/19/20 03:28 ED Treatment Course - LABORATORY CBC & Chemistry Diagram: 04/19/20 04:00 04/19/20 03:00 Medical Decision Making - Medical Decision Making 04/19/20 05:00 74 y.o. F w/ PMHx. of Cirrhosis(KING w/ ascites and Hx. of HE), HFpEF, Afib(was on reduced dose Eliquis), CKD (Stage 3), Venous insufficiency, HTN, anemia, and thrombocytopenia. presents via EMS with AMS AMS, syncope, near syncope, hyperammonemia labs 04/19/20 05:[address] w/o contrast. FINDINGS: The ventricular system is midline and nondilated. The sulcal pattern is normal for the patient's age. Mild small vessel ischemic changes are noted. There is no bleed, mass, extra-axial fluid collection or mass effect. No skull fracture or skull lesion is identified. The visualized paranasal sinuses and mastoid air cells are clear. IMPRESSION: No acute pathology 04/19/20 06:18 04/19/20 06:34 Labs pending 04/19/20 06:51 EKG: NSR, no ST elevations, normal qt, qrs intervals. 04/19/20 06:52 Labs pending. sign out to day team, admit. 04/19/20 06:53 Discharge - Follow up/Referral Referrals: Gatito Lieberman MD, MD [Primary Care Provider] - - Patient Discharge Instructions - Post Discharge Activity
[2020-04-19 04:33] LABS: BASO % 1.1 % (0-2.0); EOS % 1.7 % (0-4.5); HEMATOCRIT 28.4 % (32.4-45.2); HEMOGLOBIN 9.4 GM/dL (10.7-15.3); LYMPH % 27.6 % (8-40); MCH 30.2 pg (25.7-33.7); MEAN CELL VOLUME 91.4 fl (80-96); MEAN PLT VOLUME 10.7 fl (7.5-11.1); MONO % 11.4 % (3.8-10.2); NEUT % 58.2 % (42.8-82.8); PLATELET COUNT 55 K/MM3 (134-434); RBC 3.11 M/mm3 (3.60-5.2); RDW 15.9 % (11.6-15.6); WHITE BLOOD COUNT 5.6 K/mm3 (4.0-10.0)
--- NOTE | 2020-04-19 07:30 | PDOC ---
*Physical Exam - Vital Signs Last Vital Signs Temp Pulse Resp BP Pulse Ox 97.5 F L 68 20 97/57 L 100 04/19/20 03:28 04/19/20 03:28 04/19/20 03:28 04/19/20 03:28 04/19/20 03:28 ED Treatment Course - LABORATORY CBC & Chemistry Diagram: 04/19/20 04:00 04/19/20 03:00 - ADDITIONAL ORDERS Additional order review: Laboratory Results 04/19/20 04:00 Lactic Acid 1.9 04/19/20 04:00 RBC 3.11 L MCV 91.4 MCHC 33.0 RDW 15.9 H MPV 10.7 Neutrophils % 58.2 Lymphocytes % 27.6 D Monocytes % 11.4 H Eosinophils % 1.7 Basophils % 1.1 Medical Decision Making - Medical Decision Making Pt signed out by day team - 74 y.o. F w/ PMHx. of Cirrhosis(KING w/ ascites and Hx. of HE), HFpEF, Afib(was on reduced dose Eliquis), CKD (Stage 3), Venous insufficiency, HTN, anemia, and thrombocytopenia. presents via EMS with AMS. Head CT with no acute findings. repeat BP - MAP 74 pending labs; will give lactulose if hyperammonemia Labs: no leukocytosis, anemia (at baseline), electrolytes WNL, elevated Cr @ baseline, hyperammonemia UA: bacteriuria, -LE, -nitrites Will order lactulose PO Disposition Admit for AMS, syncope, hyperammonemia Spoke with Dr. Pate, who recommended the patient be placed on the med/surg floor; recommended rectal lactulose for hyperammonemia Discharge - Discharge Information Problems reviewed: Yes Clinical Impression/Diagnosis: Increased ammonia level Altered mental status Qualifiers: Altered mental status type: unspecified Qualified Code(s): R41.82 - Altered men zacarias status, unspecified Syncope Qualifiers: Syncope type: unspecified Qualified Code(s): R55 - Syncope and collapse Condition: Stable - Admission Yes - Follow up/Referral - Patient Discharge Instructions - Post Discharge Activity
[2020-04-19] MEDS ORDERED: LACTULOSE 20 GM/30 ML UDC (FOR ORAL USE ONLY) PO ONE (07:36)
[2020-04-19 07:38] LABS: ALBUMIN 2.3 g/dl (3.4-5.0); ALK PHOS 94 U/L (45-117); ANION GAP 7 MMOL/L (8-16); BILIRUBIN,TOTAL 2.2 mg/dL (0.2-1); CALCIUM 9.2 mg/dL (8.5-10.1); CHLORIDE 104 mmol/L (98-107); CO2 28 mmol/L (21-32); CREATININE 1.8 mg/dL (0.55-1.3); GLUCOSE,RANDOM 79 mg/dL (74-106); POTASSIUM 3.7 mmol/L (3.5-5.1); SGOT/AST 36 U/L (15-37); SGPT/ALT 16 U/L (13-61); SODIUM 139 mmol/L (136-145); TOT PROT 7.5 g/dl (6.4-8.2)
[2020-04-19] MEDS ORDERED: LACTULOSE 20 GM/30 ML UDC (FOR ORAL USE ONLY) ONE (07:41)
[2020-04-19 08:42] LABS: EPI CELLS >36 /uL (0-25.1); HYALINE CASTS 2 /uL (0-3.1); PH,URINE 6.5 (5.0-8.0); URINE APPEARANCE CLEAR; URINE BACTERIA 2384 /uL (0-1359); URINE BILIRUBIN NEGATIVE (NEGATIVE); URINE COLOR YELLOW; URINE GLUCOSE (UA) NEGATIVE (NEGATIVE); URINE KETONE NEGATIVE (NEGATIVE); URINE LEUK ESTERASE TRACE (NEGATIVE); URINE NITRITE NEGATIVE (NEGATIVE); URINE PROTEIN NEGATIVE (NEGATIVE); URINE RBC 25 /uL (0-23.9); URINE WBC 5 /uL (0-25.8)
[2020-04-19] MEDS ORDERED: LACTULOSE 20 GM/30 ML UDC (FOR RECTAL USE ONLY) PR ONE (09:27)
--- NOTE | 2020-04-19 10:14 | EKG ---
Test Reason : Blood Pressure : / mmHG Vent. Rate : 060 BPM Atrial Rate : 060 BPM P-R Int : 192 ms QRS Dur : 086 ms QT Int : 470 ms P-R-T Axes : 062 009 059 degrees QTc Int : 470 ms NORMAL SINUS RHYTHM EARLY REPOLARIZATION WHEN COMPARED WITH ECG OF 02-MAR-2020 15:16, NO SIGNIFICANT CHANGE WAS FOUND Confirmed by JIM HAILE MD ([id number]) on 04/19/2020 10:14:24 AM Referred By: Confirmed By:JIM HAILE MD
--- NOTE | 2020-04-19 10:47 | HP ---
Admitting History and Physical - Primary Care Physician PCP: Kim Pate - Admission Chief Complaint: SYNCOPE History of Present Illness: 74 y.o. F w/ PMHx. of Cirrhosis(KING w/ ascites and Hx. of HE), HFpEF, Afib(was on reduced dose Eliquis), CKD (Stage 3), Venous insufficiency, HTN, anemia, and thrombocytopenia. presents via EMS with AMS. ems reports she was found on the floor by her son. pt is not aware of how sequenc of events happened and only re members being on the ambulance. She is able to recall that she takes blood pressure medication and lactulose on a daily basis.She denies headache, chest pain, SOB, abdominal pain, she is alert and oriented to person and place. 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 Cardiovascular: Yes: AFIB (paroxysmal NADIA), CHF, HTN, Other Gastrointestinal: Yes: Ascites Hepatobiliary: Yes: Cirrhosis (likely due to KING with ascites and hepatic encephalopathy) Renal/: Yes: Renal Inusuff ...: No Heme/Onc: Yes: Anemia, Thrombocytopenia Infectious Disease: Yes: Other (Strep mitis bacteremia) - Past Surgical History Past Surgical History: Yes: None - Smoking History Smoking history: Never smoked Have you smoked in the past 12 months: No Aproximately how many cigarettes per day: 0 - Alcohol/Substance Use Hx Alcohol Use: No History of Substance Use: reports: None - Social History 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 History of Recent Travel: No Home Medications - Allergies Allergies/Adverse Reactions: Allergies Allergy/AdvReac Type Severity Reaction Status Date / Time No Known Allergies Allergy Verified 03/02/20 12:42 - Home Medications Home Medications: Ambulatory Orders Furosemide 40 mg PO BID 04/19/20 Lactulose (Oral Use) [Cephulac -] 20 gm PO QID 04/19/20 Metoprolol Tartrate 25 mg PO DAILY 04/19/20 Rifaximin [Xifaxan] 550 mg PO DAILY 04/19/20 Spironolactone 100 mg PO DAILY 04/19/20 Family Medical History Family Hx Cardiac Disorders: Father ( of [place] age 73) Review of Systems - Review of Systems Constitutional: reports: Weakness Cardiovascular: reports: No Symptoms Gastrointestinal: reports: No Symptoms Neurological: reports: Weakness Physical Examination Vital Signs: Vital Signs Temperature 97.5 F L 04/19/20 03:28 Pulse Rate 60 04/19/20 08:22 Respiratory Rate 16 04/19/20 08:22 Blood Pressure 96/67 04/19/20 08:22 O2 Sat by Pulse Oximetry (%) 98 04/19/20 08:22 Constitutional: Yes: Mild Distress Cardiovascular: Yes: Regular Rate and Rhythm Respiratory: Yes: WNL Gastrointestinal: Yes: WNL Musculoskeletal: Yes: Muscle Weakness Neurological: Yes: Weakness Labs: CBC, BMP 04/19/20 04:00 04/19/20 03:00 Imaging - Results Cat Scan: Report Reviewed Problem List - Problems (1) Atypical syncope Code(s): R55 - SYNCOPE AND COLLAPSE (2) Afib Code(s): I48.91 - UNSPECIFIED ATRIAL FIBRILLATION (3) Anemia Code(s): D64.9 - ANEMIA, UNSPECIFIED (4) CKD (chronic kidney disease) Code(s): N18.9 - CHRONIC KIDNEY DISEASE, UNSPECIFIED (5) Chronic liver disease and cirrhosis Code(s): K74.60 - UNSPECIFIED CIRRHOSIS OF LIVER; K76.9 - LIVER DISEASE, UNSPECIFIED Assessment/Plan MRI BRAIN PENDING NEUROLOGY EVAL NEURO CHECKS/FALL RISKS PHYSICAL THERAPY EVAL AMMONIA ELEVATED WILL ORDER LACTULOASE/XIFAXIN SNF
[2020-04-19] MEDS ORDERED: LACTULOSE 20 GM/30 ML UDC (FOR ORAL USE ONLY) PO PRN (10:49)
[2020-04-19] MEDS ORDERED: ACETAMINOPHEN 325 MG TABLET (FP) PO PRN (10:49)
--- NOTE | 2020-04-19 11:25 | CON.NEURO ---
Consult Consult Specialty:: [facility] Referred by:: Herlinda Reason for Consultation:: AMS - History of Present Illness History of Present Illness: 74 years old man with PMH CAD OA Dementia OA Thromocytopenai Ch LPB Found on [facility] floor by dalila son ?? 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: Other Cardio/Vascular: Yes: AFIB (paroxysmal NADIA), CHF, HTN, Other Gastrointestinal: Yes: Ascites Hepatobiliary: Yes: Cirrhosis (likely due to KING with ascites and hepatic encephalopathy) Renal/: Yes: Renal Inusuff ...: No Infectious Disease: Yes: Other (Strep mitis bacteremia) - Past Surgical History Past Surgical History: Yes: None - Alcohol/Substance Use Hx Alcohol Use: No History of Substance Use: reports: None - Smoking History Smoking history: Never smoked Have you smoked in the past 12 months: No Aproximately how many cigarettes per day: 0 - Social History Usual Living Arrangement: Senior Living 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 History of Recent Travel: No Home Medications - Allergies Allergies/Adverse Reactions: Allergies Allergy/AdvReac Type Severity Reaction Status Date / Time No Known Allergies Allergy Verified 03/02/20 12:42 - Home Medications Home Medications: Ambulatory Orders Furosemide 40 mg PO BID 04/19/20 Lactulose (Oral Use) [Cephulac -] 20 gm PO QID 04/19/20 Metoprolol Tartrate 25 mg PO DAILY 04/19/20 Rifaximin [Xifaxan] 550 mg PO DAILY 04/19/20 Spironolactone 100 mg PO DAILY 04/19/20 Family Medical History Family History: Unable to Obtain Family Hx Cardiac Disorders: Father ( of [place] age 73) Review of Systems - Review of Systems Constitutional: reports: No Symptoms Eyes: reports: No Symptoms Neurological: reports: Dizziness, Headache, Incoordination, Numbness Physical Exam-Neuro Vital Signs: Vital Signs Temperature 97.5 F L 04/19/20 03:28 Pulse Rate 60 04/19/20 08:22 Respiratory Rate 16 04/19/20 08:22 Blood Pressure 96/67 04/19/20 08:22 O2 Sat by Pulse Oximetry (%) 98 04/19/20 08:22 Labs: CBC, BMP 04/19/20 04:00 04/19/20 03:00 - Neuro Exam Level Of Consciousness: Yes: Oriented to Person, Oriented to Place Eyes: Yes: PERRLA Speech: Garbled Dominant Hand: Right Cranial Nerves II-XII Intact: Yes Gag: Present DTR's: 1+ Left Bicep, 1+ Right Bicep, 1+ Left Tricep, 1+ Right Tricep Response to light touch: Normal Response to pain prick: Normal Motor Strength: 3/5: Left Arm, Right Arm, Left Leg, Right Leg Gait: Deferred Imaging - Results Cat Scan: Image Reviewed Problem List - Problems (1) Atypical syncope Code(s): R55 - SYNCOPE AND COLLAPSE (2) Altered mental status Code(s): R41.82 - ALTERED MENTAL STATUS, UNSPECIFIED Qualifiers: Altered mental status type: disorientation Qualified Code(s): R41.0 - Disorientation, unspecified Assessment/Plan Neurological DD 1. Rule out Sepsis 2. Synocpy with TIA 3. Syncopy with cardiac arrythmia Plan 1. Neuro checks 2 .MRI brain with no Gd 3. C Duplex 4. Fall precautions 5. Tele Thank you for the kind referral Krishna Madsen MD
--- NOTE | 2020-04-19 14:18 | CON.CARD ---
Consult Consult Specialty:: Cardiology Referred by:: Dr. Pate Reason for Consultation:: Altered mental status and syncope. - History of Present Illness Chief Complaint: Syncope and altered mental status History of Present Illness: 74 year-old woman with a PMHx of HTN, chronic diastolic CHF, paroxysmal atrial fibrillation on Eliquis, liver cirrhosis (KING w/ ascites, CKD (Stage 3), venous insufficiency, partial venous thrombosis, anemia, and thrombocytopenia brought to ED 04/19/20 via EMS with altered mental status and syncope. EMS reported she was found on the floor by her son. She was not aware of the events and only remembers being on the ambulance. She is able to recall that she takes blood pressure medication and lactulose on a daily basis. She denies headache, chest pain, SOB, abdominal pain, she is alert and oriented to person and place. The patient was seen in ED. She appears weak but alert and awake. She reports no chest pain, shortness of breath or palpitation. Seen by neurology. Brain MRI, carotid duplex and engine monitor recommended. ECG 04/19/20: Sinus rhythm at 60 BPM. Normal axis. Early repolarization. Echo 03/12/2020: Normal LV size, wall motion and systolic function. LVEF = 70%. Normal RV size and function. Moderate LA dilatation and normal RA in size. Severe MAC with functional mitral stenosis. FCAV with mild . DAVID = 1.7 cm2. 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: Other Cardio/Vascular: Yes: AFIB (paroxysmal NADIA), CHF, HTN, Other Gastrointestinal: Yes: Ascites Hepatobiliary: Yes: Cirrhosis (likely due to KING with ascites and hepatic encephalopathy) Renal/: Yes: Renal Inusuff ...: No Infectious Disease: Yes: Other (Strep mitis bacteremia) - Past Surgical History Past Surgical History: Yes: None - Alcohol/Substance Use Hx Alcohol Use: No History of Substance Use: reports: None - Smoking History Smoking history: Never smoked Have you smoked in the past 12 months: No Aproximately how many cigarettes per day: 0 - Social History Usual Living Arrangement: Prison 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 ([employer]) 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 History of Recent Travel: No Home Medications - Allergies Allergies/Adverse Reactions: Allergies Allergy/AdvReac Type Severity Reaction Status Date / Time No Known Allergies Allergy Verified 03/02/20 12:42 - Home Medications Home Medications: Ambulatory Orders Furosemide 40 mg PO BID 04/19/20 Lactulose (Oral Use) [Cephulac -] 20 gm PO QID 04/19/20 Metoprolol Tartrate 25 mg PO DAILY 04/19/20 Rifaximin [Xifaxan] 550 mg PO DAILY 04/19/20 Spironolactone 100 mg PO DAILY 04/19/20 Family Medical History Family History: Unable to Obtain Family Hx Cardiac Disorders: Father ( of [place] age 73) Review of Systems - Review of Systems Constitutional: reports: Lethargy, Loss of Appetite, Malaise, Weakness Eyes: reports: No Symptoms HENT: reports: No Symptoms, Throat Pain Cardiovascular: reports: No Symptoms Respiratory: reports: No Symptoms Gastrointestinal: reports: Bloating, Constipation Genitourinary: reports: No Symptoms Breasts: reports: No Symptoms Reported Musculoskeletal: reports: Back Pain Neurological: reports: Change in LOC, Syncope, Weakness Endocrine: reports: No Symptoms Vital Signs: Vital Signs Temperature 97.3 F L 04/19/20 12:17 Pulse Rate 60 04/19/20 12:17 Respiratory Rate 16 04/19/20 12:17 Blood Pressure 93/47 L 04/19/20 12:17 O2 Sat by Pulse Oximetry (%) 96 04/19/20 12:17 General: Well developed. Chronic ill. No acute distress. Head: Normocephalic. Atraumatic, Eyes: PERRLA, EOMI. Sclerae anicteric. Conjunctivae clear. Neck: Supple. No JVD. No bruits. Heart: Normal S1, S2: Regular rhythm and rate. II/ QUINCY. Lungs: Symmetrical air entry. Clear to auscultation. No crackle. No wheezing or rhonchi. Abdomen: Distended. Soft. Bowel sound positive. Non tender. No masses. Extremities: 1+ edema. No clubbing or cyanosis. PD 2+, equal bilaterally. - Other Data Labs, Other Data: CBC, BMP 04/19/20 04:00 04/19/20 03:00 Troponin, BNP 04/19/20 03:00 Troponin I < 0.02 Troponin, BNP 04/19/20 03:00 Troponin I < 0.02 Imaging - Results EKG: Image Reviewed (ECG 04/19/20: Sinus rhythm at 60 BPM. Normal axis. Early repolarization.) Other: Image Reviewed (Echo 03/12/2020: Normal LV size, wall motion and systolic function. LVEF = 70%. Normal RV size and function. Moderate LA dilatation and normal RA in size. Severe MAC with functional mitral stenosis. FCAV with mild . DAVID = 1.7 cm2.) Assessment/Plan 74 year-old woman with a PMHx of HTN, chronic diastolic CHF, paroxysmal atrial fibrillation on Eliquis, liver cirrhosis (KING w/ ascites, CKD (Stage 3), venous insufficiency, partial venous thrombosis, anemia, and thrombocytopenia brought to ED 04/19/20 via EMS with altered mental status and syncope. EMS reported she was found on the floor by her son. She was not aware of the events and only remembers being on the ambulance. She is able to recall that she takes blood pressure medication and lactulose on a daily basis. She denies headache, chest pain, SOB, abdominal pain, she is alert and oriented to person and place. The patient was seen in ED. She appears weak but alert and awake. She reports no chest pain, shortness of breath or palpitation. Seen by neurology. Brain MRI, carotid duplex and engine monitor recommended. ECG 04/19/20: Sinus rhythm at 60 BPM. Normal axis. Early repolarization. Echo 03/12/2020: Normal LV size, wall motion and systolic function. LVEF = 70%. Normal RV size and function. Moderate LA dilatation and normal RA in size. Severe MAC with functional mitral stenosis. FCAV with mild . DAVID = 1.7 cm2. Syncope, likely secondary to hypotension and dehydration. 1) Hold metoprolol 2) Hold furosemide and spironolactone. 3) Gentle IV hydration. 4) Agree to admit to telemetry to rule out arrhythmia 5) Neuro follow up. We will follow the patient with you!
[2020-04-19] MEDS: RIFAXIMIN 550 MG TABLET (UD) PO SCH (22:14)
[2020-04-19] MEDS: HEPARIN NA (PORCINE) 5,000 UNITS/ML 1ML VIAL SQ SCH (22:14)
--- NOTE | 2020-04-20 07:33 | PN ---
Progress Note, Physician Chief Complaint: AWAKE MORE ALERT TODAY DOES NOT REMEMBER FALLING - Current Medication List Current Medications: Active Medications Acetaminophen (Tylenol -) 650 mg PO Q6H PRN PRN Reason: FEVER Heparin Sodium (Porcine) (Heparin -) 5,000 unit SQ BID [facility] Last Admin: 04/19/20 22:14 Dose: 5,000 unit Documented by: Lactulose (Cephulac (Oral Use)) 20 gm PO TID PRN PRN Reason: CONSTIPATION Rifaximin (Xifaxan -) 550 mg PO BID [facility] Last Admin: 04/19/20 22:14 Dose: 550 mg Documented by: - Objective Vital Signs: Vital Signs Temperature 97.8 F 04/20/20 06:55 Pulse Rate 71 04/20/20 06:55 Respiratory Rate 16 04/20/20 06:55 Blood Pressure 99/53 L 04/20/20 06:55 O2 Sat by Pulse Oximetry (%) 98 04/20/20 06:55 Constitutional: Yes: No Distress Cardiovascular: Yes: Regular Rate and Rhythm Respiratory: Yes: WNL Gastrointestinal: Yes: WNL Genitourinary: Yes: Incontinence Musculoskeletal: Yes: Muscle Weakness Integumentary: Yes: WNL Neurological: Yes: Other Labs: CBC, BMP 04/19/20 04:00 04/19/20 03:00 Problem List - Problems (1) Atypical syncope Code(s): R55 - SYNCOPE AND COLLAPSE (2) Afib Code(s): I48.91 - UNSPECIFIED ATRIAL FIBRILLATION (3) Anemia Code(s): D64.9 - ANEMIA, UNSPECIFIED (4) CKD (chronic kidney disease) Code(s): N18.9 - CHRONIC KIDNEY DISEASE, UNSPECIFIED (5) Chronic liver disease and cirrhosis Code(s): K74.60 - UNSPECIFIED CIRRHOSIS OF LIVER; K76.9 - LIVER DISEASE, UNSPECIFIED Assessment/Plan AGREE WITH CARDIO/NEURO WILL TRANSFER TO TELEMETRY PT EVAL MRI BRAIN GENTLE HYDRATION SNF PLACEMENT
[2020-04-20 10:23] LABS: HEMATOCRIT 31.3 % (32.4-45.2); HEMOGLOBIN 10.2 GM/dL (10.7-15.3); MCH 29.7 pg (25.7-33.7); MCHC 32.5 g/dl (32.0-36.0); MEAN CELL VOLUME 91.2 fl (80-96); MEAN PLT VOLUME 10.4 fl (7.5-11.1); PLATELET COUNT 46 K/MM3 (134-434); RBC 3.44 M/mm3 (3.60-5.2); RDW 16.1 % (11.6-15.6); WHITE BLOOD COUNT 3.6 K/mm3 (4.0-10.0)
[2020-04-20] MEDS: HEPARIN NA (PORCINE) 5,000 UNITS/ML 1ML VIAL SQ SCH ×2 (10:33→21:18)
[2020-04-20] MEDS: RIFAXIMIN 550 MG TABLET (UD) PO SCH ×2 (10:33→21:19)
[2020-04-20 10:44] LABS: ALBUMIN 2.3 g/dl (3.4-5.0); BILIRUBIN,TOTAL 2.2 mg/dL (0.2-1); BLOOD UREA NITROGEN 22.5 mg/dL (7-18); CALCIUM 8.9 mg/dL (8.5-10.1); CREATININE 1.6 mg/dL (0.55-1.3); POTASSIUM 4.2 mmol/L (3.5-5.1); TOT PROT 7.4 g/dl (6.4-8.2)
--- NOTE | 2020-04-20 11:40 | PN ---
Progress Note, Physician Chief Complaint: The patient appears weak but alert and awake. She reports no recurrent syncope, chest pain, shortness of breath or palpitation. She just moved to tele bed. Tele shows sinus rhythm in low 60s. No pauses. History of Present Illness: 74 year-old woman with a PMHx of HTN, chronic diastolic CHF, paroxysmal atrial fibrillation on Eliquis, liver cirrhosis (KING w/ ascites, CKD (Stage 3), venous insufficiency, partial venous thrombosis, anemia, and thrombocytopenia brought to ED 04/19/20 via EMS with altered mental status and syncope. EMS reported she was found on the floor by her son. She was not aware of the events and only remembers being on the ambulance. She is able to recall that she takes blood pressure medication and lactulose on a daily basis. She denies headache, chest pain, SOB, abdominal pain, she is alert and oriented to person and place. Seen by neurology. Brain MRI, carotid duplex and alarm security or surveillance monitor recommended. ECG 04/19/20: Sinus rhythm at 60 BPM. Normal axis. Early repolarization. Echo 03/12/2020: Normal LV size, wall motion and systolic function. LVEF = 70%. Normal RV size and function. Moderate LA dilatation and normal RA in size. Severe MAC with functional mitral stenosis. FCAV with mild . DAVID = 1.7 cm2. - Current Medication List Current Medications: Active Medications Acetaminophen (Tylenol -) 650 mg PO Q6H PRN PRN Reason: FEVER Heparin Sodium (Porcine) (Heparin -) 5,000 unit SQ BID [facility] Last Admin: 04/20/20 10:33 Dose: 5,000 unit Documented by: Lactulose (Cephulac (Oral Use)) 20 gm PO TID PRN PRN Reason: CONSTIPATION Last Admin: 04/20/20 10:37 Dose: 20 gm Documented by: Rifaximin (Xifaxan -) 550 mg PO BID [facility] Last Admin: 04/20/20 10:33 Dose: 550 mg Documented by: - Objective Vital Signs: Vital Signs Temperature 98 F 04/20/20 10:00 Pulse Rate 67 04/20/20 10:00 Respiratory Rate 18 04/20/20 10:00 Blood Pressure 98/60 04/20/20 10:00 O2 Sat by Pulse Oximetry (%) 98 04/20/20 10:00 General: Well developed. Chronic ill. No acute distress. Head: Normocephalic. Atraumatic, Eyes: PERRLA, EOMI. Sclerae anicteric. Conjunctivae clear. Neck: Supple. No JVD. No bruits. Heart: Normal S1, S2: Regular rhythm and rate. II/ QUINCY. Lungs: Symmetrical air entry. Clear to auscultation. No crackle. No wheezing or rhonchi. Abdomen: Distended. Soft. Bowel sound positive. Non tender. No masses. Extremities: 1+ edema. No clubbing or cyanosis. Labs: CBC, BMP 04/20/20 09:12 04/20/20 09:12 Assessment/Plan 74 year-old woman with a PMHx of HTN, chronic diastolic CHF, paroxysmal atrial fibrillation on Eliquis, liver cirrhosis (KING w/ ascites, CKD (Stage 3), venous insufficiency, partial venous thrombosis, anemia, and thrombocytopenia brought to ED 04/19/20 via EMS with altered mental status and syncope. EMS reported she was found on the floor by her son. She was not aware of the events and only remembers being on the ambulance. She is able to recall that she takes blood pressure medication and lactulose on a daily basis. She denies headache, chest pain, SOB, abdominal pain, she is alert and oriented to person and place. Seen by neurology. Brain MRI, carotid duplex and alarm security or surveillance monitor recommended. ECG 04/19/20: Sinus rhythm at 60 BPM. Normal axis. Early repolarization. Echo 03/12/2020: Normal LV size, wall motion and systolic function. LVEF = 70%. Normal RV size and function. Moderate LA dilatation and normal RA in size. Severe MAC with functional mitral stenosis. FCAV with mild . DAVID = 1.7 cm2. Syncope, likely secondary to hypotension and dehydration. 1) Hold metoprolol 2) Hold furosemide and spironolactone. 3) Encourage oral hydration. 4) Continue tele to rule out arrhythmia 5) Neuro follow up. We will follow the patient with you!
[2020-04-20] MEDS: LACTULOSE 20 GM/30 ML UDC (FOR ORAL USE ONLY) PO PRN (14:01)
--- NOTE | 2020-04-21 08:09 | PN ---
Progress Note, Physician - Current Medication List Current Medications: Active Medications Acetaminophen (Tylenol -) 650 mg PO Q6H PRN PRN Reason: FEVER Heparin Sodium (Porcine) (Heparin -) 5,000 unit SQ BID [facility] Last Admin: 04/20/20 21:18 Dose: 5,000 unit Documented by: Lactulose (Cephulac (Oral Use)) 20 gm PO TID PRN PRN Reason: CONSTIPATION Last Admin: 04/20/20 14:01 Dose: 20 gm Documented by: Rifaximin (Xifaxan -) 550 mg PO BID [facility] Last Admin: 04/20/20 21:19 Dose: 550 mg Documented by: - Objective Vital Signs: Vital Signs Temperature 97.8 F 04/21/20 06:00 Pulse Rate 66 04/21/20 06:00 Respiratory Rate 18 04/21/20 06:00 Blood Pressure 102/56 L 04/21/20 06:00 O2 Sat by Pulse Oximetry (%) 98 04/21/20 06:00 Cardiovascular: Yes: S1, S2 Respiratory: Yes: Regular, CTA Bilaterally Gastrointestinal: Yes: Normal Bowel Sounds, Soft. No: Tenderness Labs: CBC, BMP 04/20/20 09:12 04/20/20 09:12 Problem List - Problems (1) Syncope Assessment/Plan: maybe due volume depletion\ hold luis meds ivf follow labs pt Code(s): R55 - SYNCOPE AND COLLAPSE Qualifiers: Syncope type: unspecified Qualified Code(s): R55 - Syncope and collapse (2) Weakness Assessment/Plan: pt may need snf Code(s): R53.1 - WEAKNESS (3) Afib Assessment/Plan: per cardio Code(s): I48.91 - UNSPECIFIED ATRIAL FIBRILLATION (4) CKD (chronic kidney disease) Assessment/Plan: Abnormal Lab Results 04/20/20 04/20/20 04/20/20 09:12 09:12 09:12 WBC 3.6 L RBC 3.44 L Hgb 10.2 L Hct 31.3 L RDW 16.1 H Plt Count 46 L Anion Gap 5 L BUN 22.5 H Creatinine 1.6 H Total Bilirubin 2.2 H AST 46 H Ammonia 111.40 H Albumin 2.3 L HDL Cholesterol 27 L monitor trends Code(s): N18.9 - CHRONIC KIDNEY DISEASE, UNSPECIFIED (5) HTN (hypertension) Assessment/Plan: Vital Signs Period Temp Pulse Resp BP Sys/Patel Pulse Ox Last 24 Hr 97.6 F-98.3 F 66-86 18-20 97-102/53-62 96-99 ivf monitor off meds Code(s): I10 - ESSENTIAL (PRIMARY) HYPERTENSION
--- NOTE | 2020-04-21 09:00 | PN ---
Progress Note, Physician History of Present Illness: eevents noted Chart reviewed Seen on the floor Alert awake oriented Feels better Ordered the MRI - Current Medication List Current Medications: Active Medications Acetaminophen (Tylenol -) 650 mg PO Q6H PRN PRN Reason: FEVER Heparin Sodium (Porcine) (Heparin -) 5,000 unit SQ BID [facility] Last Admin: 04/20/20 21:18 Dose: 5,000 unit Documented by: Lactulose (Cephulac (Oral Use)) 20 gm PO TID PRN PRN Reason: CONSTIPATION Last Admin: 04/20/20 14:01 Dose: 20 gm Documented by: Rifaximin (Xifaxan -) 550 mg PO BID [facility] Last Admin: 04/20/20 21:19 Dose: 550 mg Documented by: - Objective Vital Signs: Vital Signs Temperature 97.8 F 04/21/20 06:00 Pulse Rate 66 04/21/20 06:00 Respiratory Rate 18 04/21/20 06:00 Blood Pressure 102/56 L 04/21/20 06:00 O2 Sat by Pulse Oximetry (%) 98 04/21/20 06:00 Constitutional: Yes: Well Nourished Eyes: Yes: WNL Neurological: Yes: Alert, Oriented, Babinski negative, Cran Nerves II-XII Intact Labs: CBC, BMP 04/20/20 09:12 04/20/20 09:12 Problem List - Problems (1) Atypical syncope Assessment/Plan: 1. Continue Holter monitor. 2. Check orthostasis every shift. 3. MRI of the brain with no contrast. 4. Carotid Doppler. 65. Physical therapy Code(s): R55 - SYNCOPE AND COLLAPSE (2) Altered mental status Code(s): R41.82 - ALTERED MENTAL STATUS, UNSPECIFIED Qualifiers: Altered mental status type: unspecified Qualified Code(s): R41.82 - Altered mental status, unspecified
--- NOTE | 2020-04-21 09:33 | PN ---
Progress Note, Physician Chief Complaint: Found on the floor unresponsive. History of Present Illness: 74 year-old woman with a PMHx of HTN, chronic diastolic CHF, paroxysmal atrial fibrillation on Eliquis, liver cirrhosis (KING w/ ascites, CKD (Stage 3), venous insufficiency, partial venous thrombosis, anemia, and thrombocytopenia brought to ED 04/19/20 via EMS with altered mental status and syncope. EMS reported she was found on the floor by her son. She was not aware of the events and only remembers being on the ambulance. She is able to recall that she takes blood pressure medication and lactulose on a daily basis. She denies headache, chest pain, SOB, abdominal pain, she is alert and oriented to person and place. Seen by neurology. Brain MRI, carotid duplex and gambling monitor recommended. ECG 04/19/20: Sinus rhythm at 60 BPM. Normal axis. Early repolarization. Echo 03/12/2020: Normal LV size, wall motion and systolic function. LVEF = 70%. Normal RV size and function. Moderate LA dilatation and normal RA in size. Severe MAC with functional mitral stenosis. FCAV with mild . DAVID = 1.7 cm2. - Current Medication List Current Medications: Active Medications Acetaminophen (Tylenol -) 650 mg PO Q6H PRN PRN Reason: FEVER Heparin Sodium (Porcine) (Heparin -) 5,000 unit SQ BID [facility] Last Admin: 04/20/20 21:18 Dose: 5,000 unit Documented by: Lactulose (Cephulac (Oral Use)) 20 gm PO TID PRN PRN Reason: CONSTIPATION Last Admin: 04/20/20 14:01 Dose: 20 gm Documented by: Rifaximin (Xifaxan -) 550 mg PO BID [facility] Last Admin: 04/20/20 21:19 Dose: 550 mg Documented by: - Objective Vital Signs: Vital Signs Temperature 97.6 F 04/21/20 09:19 Pulse Rate 69 04/21/20 09:19 Respiratory Rate 18 04/21/20 09:19 Blood Pressure 102/57 L 04/21/20 09:19 O2 Sat by Pulse Oximetry (%) 96 04/21/20 09:19 Constitutional: Yes: Well Nourished, No Distress, Calm Eyes: Yes: WNL, Conjunctiva Clear, EOM Intact HENT: Yes: WNL, Atraumatic, Normocephalic Neck: Yes: WNL, Supple, Trachea Midline Cardiovascular: Yes: WNL, Regular Rate and Rhythm, S1, S2 Respiratory: Yes: WNL, Regular, CTA Bilaterally Gastrointestinal: Yes: WNL, Normal Bowel Sounds, Soft ...Rectal Exam: Yes: Deferred Musculoskeletal: Yes: WNL Extremities: Yes: WNL Edema: No Peripheral Pulses: Left Femoral: 1+, Right Femoral: 1+ Integumentary: Yes: WNL Neurological: Yes: Alert, Oriented ...Motor Strength: WNL Psychiatric: Yes: WNL Labs: CBC, BMP 04/20/20 09:12 04/20/20 09:12 Assessment/Plan 74 year-old woman with a PMHx of HTN, chronic diastolic CHF, paroxysmal atrial fibrillation on Eliquis, liver cirrhosis (KING w/ ascites, CKD (Stage 3), venous insufficiency, partial venous thrombosis, anemia, and thrombocytopenia brought to ED 04/19/20 via EMS with altered mental status and syncope. EMS reported she was found on the floor by her son. She was not aware of the events and only remembers being on the ambulance. She is able to recall that she takes blood pressure medication and lactulose on a daily basis. She denies headache, chest pain, SOB, abdominal pain, she is alert and oriented to person and place. Seen by neurology. Brain MRI, carotid duplex and gambling monitor recommended. ECG 04/19/20: Sinus rhythm at 60 BPM. Normal axis. Early repolarization. Echo 03/12/2020: Normal LV size, wall motion and systolic function. LVEF = 70%. Normal RV size and function. Moderate LA dilatation and normal RA in size. Severe MAC with functional mitral stenosis. FCAV with mild . DAVID = 1.7 cm2. There is no evidence of ischemia nor acute coronary syndrome. No significant arrhythmias documented to this point. No CHF. The patient is breathing comfortably. The blood pressure remains borderline/low. Please hydrated with normal saline at 75 cc an hour for a total of 1.5 L. Continue to hold blood pressure medications and diuretics for the time being. There is no need for further cardiac work-up at this point. Please do not hesitate to call us PRN.
[2020-04-21] MEDS ORDERED: PT OWN MED DRAWER 7, Y5N ONE ×3 (09:59→21:39)
[2020-04-21] MEDS: RIFAXIMIN 550 MG TABLET (UD) PO SCH ×2 (10:25→21:44)
[2020-04-21] MEDS: HEPARIN NA (PORCINE) 5,000 UNITS/ML 1ML VIAL SQ SCH ×2 (10:26→21:44)
[2020-04-21 11:56] LABS: BASO % 0.4 % (0-2.0); EOS % 2.2 % (0-4.5); HEMATOCRIT 31.6 % (32.4-45.2); HEMOGLOBIN 10.2 GM/dL (10.7-15.3); LYMPH % 20.7 % (8-40); MCH 29.8 pg (25.7-33.7); MCHC 32.2 g/dl (32.0-36.0); MEAN CELL VOLUME 92.4 fl (80-96); MEAN PLT VOLUME 10.3 fl (7.5-11.1); MONO % 10.2 % (3.8-10.2); NEUT % 66.5 % (42.8-82.8); PLATELET COUNT 49 K/MM3 (134-434); RBC 3.42 M/mm3 (3.60-5.2); RDW 16.4 % (11.6-15.6); WHITE BLOOD COUNT 5.6 K/mm3 (4.0-10.0)
[2020-04-21 12:29] LABS: ALBUMIN 2.1 g/dl (3.4-5.0); BILIRUBIN,TOTAL 2.3 mg/dL (0.2-1); BLOOD UREA NITROGEN 18.3 mg/dL (7-18); CALCIUM 8.9 mg/dL (8.5-10.1); CREATININE 1.5 mg/dL (0.55-1.3); POTASSIUM 4.4 mmol/L (3.5-5.1); TOT PROT 7.1 g/dl (6.4-8.2)
[2020-04-21] MEDS: LACTULOSE 20 GM/30 ML UDC (FOR ORAL USE ONLY) PO PRN ×2 (15:37→21:45)
--- NOTE | 2020-04-22 06:50 | PN ---
Progress Note, Physician - Current Medication List Current Medications: Active Medications Acetaminophen (Tylenol -) 650 mg PO Q6H PRN PRN Reason: FEVER Aspirin (Asa -) 81 mg PO DAILY [facility] Atorvastatin Calcium (Lipitor -) 10 mg PO HS [facility] Heparin Sodium (Porcine) (Heparin -) 5,000 unit SQ BID [facility] Last Admin: 04/21/20 21:44 Dose: 5,000 unit Documented by: Lactulose (Cephulac (Oral Use)) 20 gm PO TID PRN PRN Reason: CONSTIPATION Last Admin: 04/21/20 15:37 Dose: 20 gm Documented by: Rifaximin (Xifaxan -) 550 mg PO BID [facility] Last Admin: 04/21/20 21:44 Dose: 550 mg Documented by: - Objective Vital Signs: Vital Signs Temperature 98.1 F 04/22/20 02:00 Pulse Rate 74 04/22/20 02:00 Respiratory Rate 18 04/22/20 02:00 Blood Pressure 90/58 L 04/22/20 02:00 O2 Sat by Pulse Oximetry (%) 96 04/21/20 22:00 Cardiovascular: Yes: S1, S2 Respiratory: Yes: Regular, CTA Bilaterally Gastrointestinal: Yes: Normal Bowel Sounds, Soft Labs: CBC, BMP 04/21/20 11:20 04/21/20 11:20 Problem List - Problems (1) Syncope Assessment/Plan: maybe due volume depletion--and acute cva hold bp meds ivf follow labs pt asa/statin neuro Code(s): R55 - SYNCOPE AND COLLAPSE Qualifiers: Syncope type: unspecified Qualified Code(s): R55 - Syncope and collapse (2) Weakness Assessment/Plan: pt may need snf Code(s): R53.1 - WEAKNESS (3) Afib Assessment/Plan: see meds Code(s): I48.91 - UNSPECIFIED ATRIAL FIBRILLATION (4) CKD (chronic kidney disease) Assessment/Plan: Abnormal Lab Results 04/20/20 04/20/20 04/20/20 09:12 09:12 09:12 WBC 3.6 L RBC 3.44 L Hgb 10.2 L Hct 31.3 L RDW 16.1 H Plt Count 46 L Anion Gap 5 L BUN 22.5 H Creatinine 1.6 H Total Bilirubin 2.2 H AST 46 H Ammonia 111.40 H Albumin 2.3 L HDL Cholesterol 27 L monitor trends Code(s): N18.9 - CHRONIC KIDNEY DISEASE, UNSPECIFIED (5) HTN (hypertension) Code(s): I10 - ESSENTIAL (PRIMARY) HYPERTENSION
[2020-04-22] MEDS ORDERED: PT OWN MED DRAWER 7, Y5N ONE ×2 (09:36→21:18)
[2020-04-22] MEDS: HEPARIN NA (PORCINE) 5,000 UNITS/ML 1ML VIAL SQ SCH ×2 (09:42→21:20)
[2020-04-22] MEDS: RIFAXIMIN 550 MG TABLET (UD) PO SCH ×2 (09:43→21:20)
[2020-04-22] MEDS: ASPIRIN 81 MG CHEWABLE TABLETS PO SCH (09:43)
[2020-04-22] MEDS: LACTULOSE 20 GM/30 ML UDC (FOR ORAL USE ONLY) PO PRN (10:14)
[2020-04-22] MEDS: ACETAMINOPHEN 325 MG TABLET (FP) PO PRN (12:03)
[2020-04-22] MEDS: LACTULOSE 20 GM/30 ML UDC (FOR ORAL USE ONLY) PO SCH ×2 (14:27→21:20)
[2020-04-22] MEDS ORDERED: PIPERACILLIN/TAZOB 3.375 GM 3.375 GM in DEXTROSE 5%-WATER - 50 ML IVPB SCH (15:45)
[2020-04-22] MEDS ORDERED: DEXTROSE 5%-WATER - 50 ML IVPB ONE (16:02)
[2020-04-22] MEDS ORDERED: PIPERACILLIN/TAZOBACTAM 3.375 GM VIAL IVPB ONE (16:02)
--- NOTE | 2020-04-22 16:34 | PN ---
Progress Note (short form) - Note Progress Note: ID consult dictated admitted 04/19 from home found on floor MRI shows new CVA new fever today she is alert has no complaints other then feeling bad no phlebitis no skin breakdown no abdominal pain no SOB stat blood cultures urine culture has been sent cxray ordered echo vanco meropenem history of esbl organisms Problem List - Problems (1) Fever Code(s): R50.9 - FEVER, UNSPECIFIED (2) CVA (cerebral vascular accident) Code(s): I63.9 - CEREBRAL INFARCTION, UNSPECIFIED (3) History of ESBL Klebsiella pneumoniae infection Code(s): Z86.19 - PERSONAL HISTORY OF OTHER INFECTIOUS AND PARASITIC DISEASES
[2020-04-22] MEDS ORDERED: VANCOMYCIN 1 GRAM (PRE-DOCKED) 1 MG/0.25 ML BAG IVPB ONE (16:45)
[2020-04-22 18:07] LABS: BASO % 0.2 % (0-2.0); HEMOGLOBIN 9.9 GM/dL (10.7-15.3); MCH 29.7 pg (25.7-33.7); MEAN PLT VOLUME 10.7 fl (7.5-11.1); MONO % 8.8 % (3.8-10.2); PLATELET COUNT 48 K/MM3 (134-434); RBC 3.34 M/mm3 (3.60-5.2); RDW 16.2 % (11.6-15.6); WHITE BLOOD COUNT 11.5 K/mm3 (4.0-10.0)
[2020-04-22] MEDS ORDERED: SODIUM CHLORIDE 500 ML IV STA (18:12)
[2020-04-22] MEDS ORDERED: MEROPENEM 1 GM VIAL (RESTRICTED TO ID) IVPB ONE (18:25)
[2020-04-22] MEDS ORDERED: DEXTROSE 5%-WATER 100 ML IVPB ONE (18:26)
[2020-04-22] MEDS: MEROPENEM 1 GM in DEXTROSE 5%-WATER 100 ML IVPB SCH (18:27)
[2020-04-22 18:38] LABS: ALBUMIN 2.2 g/dl (3.4-5.0); ALK PHOS 101 U/L (45-117); ANION GAP 9 MMOL/L (8-16); BILIRUBIN,TOTAL 2.8 mg/dL (0.2-1); BLOOD UREA NITROGEN 15.6 mg/dL (7-18); CALCIUM 9.5 mg/dL (8.5-10.1); CHLORIDE 106 mmol/L (98-107); CO2 23 mmol/L (21-32); CREATININE 1.5 mg/dL (0.55-1.3); GLUCOSE,RANDOM 102 mg/dL (74-106); SGOT/AST 62 U/L (15-37); SGPT/ALT 24 U/L (13-61); SODIUM 138 mmol/L (136-145); TOT PROT 7.3 g/dl (6.4-8.2)
--- NOTE | 2020-04-22 19:18 | CONS ---
DATE OF CONSULTATION: DATE OF DICTATION: 04/22/2020 INFECTIOUS DISEASE CONSULTATION HISTORY OF PRESENT ILLNESS: This is a 74-year-old woman with a history of liver cirrhosis, KING with ascites. She has a history of hepatic encephalopathy, atrial fibrillation, CKD, venous insufficiency. She has had vaginal bleeding in the past and anemia. Most recently was hospitalized March 02 to March 21. During that admission, she had a bacteremia with bacillus, was treated for 2 weeks with IV antibiotics. She was seen multiple times by gynecology as well as hematology due to her bleeding, which ultimately improved. She was discharged home. She has apparently been living in her apartment doing okay. She was found on the floor unresponsive on the . She was brought to the hospital, where she became awake and alert. This happened on the . She had an MRI which showed a 0.4 cm acute right temporal cortical infarct. I am asked to see her today on the because now on hospital day number 3, she has fever. She is awake and alert and complains she is feeling badly. She has no chest pain, abdominal pain, nausea, vomiting, diarrhea, or dysuria. PAST MEDICAL HISTORY: Notable for liver cirrhosis, atrial fibrillation, chronic kidney disease, anemia. She has a prior history of Streptococcus mitis bacteremia as well, was treated with 28 days with ceftriaxone. She has had vaginal bleeding as well. ALLERGIES: No known drug allergies. SOCIAL HISTORY: She resides at home. 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 No tobacco or alcohol use. MEDICATION: Her medications at home include: 1. Spironolactone. 2. Rifaximin. 3. Metoprolol. 4. Lactulose. 5. Furosemide. REVIEW OF SYSTEMS: As per HPI. PHYSICAL EXAMINATION: General: She is awake and alert. Vital Signs: She is febrile, temperature of 101, pulse of 121, blood pressure 99/55, respiratory rate 20, she is saturating 98% on room air. HEENT: Normocephalic. Eyes are anicteric. She is alert and following commands. Neck: Supple. No meningismus. Lungs: Diminished breath sounds at the bases. Heart: Regular rate and rhythm. Abdomen: Soft, nontender. Extremities: Without edema. Skin: She has no skin breakdown. LABORATORY: White count is 11.5, hemoglobin 9.9, platelets are 48,000. BUN and creatinine are 15 and 1.5. Her LFTs are notable for a total bilirubin of 2.8. AST is 62. Urinalysis is negative. Her COVID serology PCR is negative. Blood cultures have been requested, and chest x-ray has been requested as well. IMPRESSION: In summary, this is a 74-year-old woman admitted from home, found on the floor. She has new cerebrovascular accident. She now has new fever today. No phlebitis, no skin breakdown, no abdominal pain or shortness of breath. Would obtain stat blood cultures, follow up her urine culture, follow up her chest x-ray. Would treat her with vancomycin and meropenem, as she has a history of extended-spectrum beta-lactamases organisms in the past, with further recommendations to follow. Would obtain echo as well. SUE BARRY M.D. [id number]
[2020-04-22] MEDS: ATORVASTATIN CA 10 MG TABLET (FP) PO SCH (21:20)
--- NOTE | 2020-04-23 01:31 | HOSP ---
Subjective - Review of Symptoms Events since last encounter: Hospitalist Encounter Notified by the RN that the patient has a new left sided facial droop, was asked to assess. Arrived to bedside, patient is awake, alert to name- at baseline. Patient examined slight left sided facial droop noted. Neuro exam performed see EMR. NIHSS 6 Plan: Head CT stat Call placed to Neurologist by RN of recent events Neurological: Yes: Other (left facial droop) Physical Examination Vital Signs: Vital Signs Temperature 98.1 F 04/22/20 22:00 Pulse Rate 86 04/22/20 22:00 Respiratory Rate 18 04/22/20 22:00 Blood Pressure 96/51 L 04/22/20 22:00 O2 Sat by Pulse Oximetry (%) 99 04/22/20 22:00 Constitutional: Yes: No Distress, Calm Eyes: Yes: Conjunctiva Clear, PERRL HENT: Yes: Atraumatic, Normocephalic Neck: Yes: Supple, Trachea Midline Cardiovascular: Yes: Regular Rate and Rhythm, Murmur, S1, S2 Respiratory: Yes: Regular, CTA Bilaterally Gastrointestinal: Yes: Normal Bowel Sounds, Soft ...Rectal Exam: Yes: Deferred Renal/: Yes: Incontinence Breast(s): Yes: WNL Edema: No Peripheral Pulses WNL: Yes Neurological: Yes: Alert, Facial Droop (left), Weakness ...Motor Strength: LUE (3/5), LLE (3/5), RUE (3/5), RLE (3/5) Psychiatric: Yes: Alert Labs: CBC, BMP 04/22/20 17:00 04/22/20 17:00 Hospitalist Encounter Assessment: 74 year-old woman with a PMHx of HTN, chronic diastolic CHF, paroxysmal atrial fibrillation on Eliquis, liver cirrhosis (KING w/ ascites, CKD (Stage 3), venous insufficiency, partial venous thrombosis, anemia, and thrombocytopenia brought to ED 04/19/20 via EMS with altered mental status and syncope. Admitted for Syncope Brain MRI (04/21/20)- 0.4cm acute right temporal cortical infarct is noted laterally Outcome: Head CT preliminary report-no evidence of acute pathology Critical Care Total Critical Care Time (in minutes): 35 Critical Care Statement: The care of this patient involved high complexity decision making to prevent further life threatening deterioration of the patient's condition and/or to evaluate & treat vital organ system(s) failure or risk of failure.
[2020-04-23] MEDS ORDERED: DEXTROSE 5%-WATER 100 ML IVPB ONE ×2 (04:43→16:56)
[2020-04-23] MEDS ORDERED: MEROPENEM 1 GM VIAL (RESTRICTED TO ID) IVPB ONE ×2 (04:43→16:56)
[2020-04-23] MEDS: MEROPENEM 1 GM in DEXTROSE 5%-WATER 100 ML IVPB SCH ×2 (04:52→17:03)
[2020-04-23] MEDS: LACTULOSE 20 GM/30 ML UDC (FOR ORAL USE ONLY) PO SCH ×3 (06:02→22:28)
--- NOTE | 2020-04-23 07:37 | PN ---
Progress Note, Physician - Current Medication List Current Medications: Active Medications Acetaminophen (Tylenol -) 650 mg PO Q6H PRN PRN Reason: FEVER Last Admin: 04/22/20 12:03 Dose: 650 mg Documented by: Aspirin (Asa -) 81 mg PO DAILY [facility] Last Admin: 04/22/20 09:43 Dose: 81 mg Documented by: Atorvastatin Calcium (Lipitor -) 10 mg PO HS [facility] Last Admin: 04/22/20 21:20 Dose: 10 mg Documented by: Heparin Sodium (Porcine) (Heparin -) 5,000 unit SQ BID [facility] Last Admin: 04/22/20 21:20 Dose: 5,000 unit Documented by: Meropenem 1 gm/ Dextrose 100 mls @ 200 mls/hr IVPB Q12H [facility] Last Admin: 04/23/20 04:52 Dose: 200 mls/hr Documented by: Lactulose (Cephulac (Oral Use)) 20 gm PO TID [facility] Last Admin: 04/23/20 06:02 Dose: Not Given Documented by: Rifaximin (Xifaxan -) 550 mg PO BID [facility] Last Admin: 04/22/20 21:20 Dose: 550 mg Documented by: - Objective Vital Signs: Vital Signs Temperature 98.0 F 04/23/20 06:00 Pulse Rate 72 04/23/20 06:00 Respiratory Rate 18 04/23/20 06:00 Blood Pressure 99/50 L 04/23/20 06:00 O2 Sat by Pulse Oximetry (%) 99 04/22/20 22:00 Cardiovascular: Yes: S1, S2 Respiratory: Yes: Regular, CTA Bilaterally Gastrointestinal: Yes: Normal Bowel Sounds, Soft Neurological: Yes: Alert, Unsteady Gait, Weakness Labs: CBC, BMP 04/22/20 17:00 04/22/20 17:00 Problem List - Problems (1) Syncope Assessment/Plan: maybe due volume depletion--and acute cva hold bp meds ivf follow labs pt asa/statin neuro Code(s): R55 - SYNCOPE AND COLLAPSE Qualifiers: Syncope type: unspecified Qualified Code(s): R55 - Syncope and collapse (2) Weakness Assessment/Plan: pt may need snf Code(s): R53.1 - WEAKNESS (3) Afib Assessment/Plan: see meds rate controlled Code(s): I48.91 - UNSPECIFIED ATRIAL FIBRILLATION (4) CKD (chronic kidney disease) Assessment/Plan: Abnormal Lab Results 04/20/20 04/20/20 04/20/20 09:12 09:12 09:12 WBC 3.6 L RBC 3.44 L Hgb 10.2 L Hct 31.3 L RDW 16.1 H Plt Count 46 L Anion Gap 5 L BUN 22.5 H Creatinine 1.6 H Total Bilirubin 2.2 H AST 46 H Ammonia 111.40 H Albumin 2.3 L HDL Cholesterol 27 L monitor trends Code(s): N18.9 - CHRONIC KIDNEY DISEASE, UNSPECIFIED (5) HTN (hypertension) Assessment/Plan: Vital Signs Period Temp Pulse Resp BP Sys/Patel Pulse Ox Last 24 Hr 97.6 F-98.3 F 66-86 18-20 97-102/53-62 96-99 ivf monitor off meds Code(s): I10 - ESSENTIAL (PRIMARY) HYPERTENSION (6) CVA (cerebral vascular accident) Assessment/Plan: as above asa statin and plavix Code(s): I63.9 - CEREBRAL INFARCTION, UNSPECIFIED (7) Fever Assessment/Plan: w/u ordered id following abx per id Microbiology 04/21/20 18:20 Urine - Urine - Catheterized Urine Culture - Final Lactose Fermenting Neg Bacilli Code(s): R50.9 - FEVER, UNSPECIFIED
[2020-04-23 08:12] LABS: BASO % 0.2 % (0-2.0); EOS % 0.6 % (0-4.5); HEMATOCRIT 30.7 % (32.4-45.2); HEMOGLOBIN 10.1 GM/dL (10.7-15.3); LYMPH % 13.6 % (8-40); MCH 30.1 pg (25.7-33.7); MCHC 32.8 g/dl (32.0-36.0); MEAN CELL VOLUME 91.8 fl (80-96); MONO % 9.5 % (3.8-10.2); NEUT % 76.1 % (42.8-82.8); PLATELET COUNT 44 K/MM3 (134-434); RBC 3.34 M/mm3 (3.60-5.2); RDW 16.4 % (11.6-15.6); WHITE BLOOD COUNT 10.2 K/mm3 (4.0-10.0)
[2020-04-23 08:36] LABS: BILIRUBIN,TOTAL 2.6 mg/dL (0.2-1); BLOOD UREA NITROGEN 19.5 mg/dL (7-18); CALCIUM 8.4 mg/dL (8.5-10.1); CREATININE 1.7 mg/dL (0.55-1.3); POTASSIUM 4.1 mmol/L (3.5-5.1); TOT PROT 6.8 g/dl (6.4-8.2)
[2020-04-23 08:52] LABS: EPI CELLS >36 /uL (0-25.1); HYALINE CASTS 39 /uL (0-3.1); URINE APPEARANCE TURBID; URINE BACTERIA 3899 /uL (0-1359); URINE BILIRUBIN 2+ (NEGATIVE); URINE COLOR DK YELLOW; URINE GLUCOSE (UA) NEGATIVE (NEGATIVE); URINE KETONE NEGATIVE (NEGATIVE); URINE LEUK ESTERASE 2+ (NEGATIVE); URINE NITRITE NEGATIVE (NEGATIVE); URINE PROTEIN TRACE (NEGATIVE); URINE WBC 8 /uL (0-25.8)
[2020-04-23] MEDS ORDERED: PT OWN MED DRAWER 7, Y5N ONE ×2 (09:24→22:24)
[2020-04-23] MEDS: HEPARIN NA (PORCINE) 5,000 UNITS/ML 1ML VIAL SQ SCH ×2 (09:28→22:28)
[2020-04-23] MEDS: RIFAXIMIN 550 MG TABLET (UD) PO SCH ×2 (09:28→22:28)
[2020-04-23] MEDS: ASPIRIN 81 MG CHEWABLE TABLETS PO SCH (09:28)
[2020-04-23 10:12] LABS: URINE RBC 64.5 /uL (0-23.9); YEAST NONE SEEN (NEGATIVE)
--- NOTE | 2020-04-23 10:31 | CONSULT ---
Admitting History and Physical - Primary Care Physician PCP: Kim Pate - Admission History of Present Illness: 74 year-old woman with a PMHx of HTN, chronic diastolic CHF, paroxysmal atrial fibrillation on Eliquis, liver cirrhosis (KING w/ ascites, CKD (Stage 3), venous insufficiency, partial venous thrombosis, anemia, and thrombocytopenia brought to ED 04/19/20 via EMS with altered mental status and syncope. Brain MRI (04/21/20)- 0.4cm acute right temporal cortical infarct is noted laterally Selected Entries 04/20/20 04/20/20 04/20/20 01:00 06:55 10:00 Temperature Respiratory Rate Respiratory Depth Respiratory Effort Blood Pressure 100/53 L 99/53 L 98/60 Blood Pressure 69 68 72 Mean O2 Sat by Pulse Oximetry (%) 04/20/20 04/20/20 04/20/20 12:27 17:21 22:00 Temperature Respiratory Rate Respiratory Depth Respiratory Effort Blood Pressure 100/54 L 97/53 L 100/62 Blood Pressure Mean O2 Sat by Pulse Oximetry (%) 04/21/20 04/21/20 04/21/20 02:00 06:00 09:19 Temperature Respiratory Rate Respiratory Depth Respiratory Effort Blood Pressure 99/57 L 102/56 L 102/57 L Blood Pressure Mean O2 Sat by Pulse Oximetry (%) 04/21/20 04/21/20 04/21/20 14:31 18:00 22:00 Temperature Respiratory Rate Respiratory Depth Respiratory Effort Blood Pressure 114/61 98/58 L 97/42 L Blood Pressure Mean O2 Sat by Pulse Oximetry (%) 04/22/20 04/22/20 04/22/20 02:00 06:00 09:00 Temperature Respiratory 18 18 Rate Respiratory Normal Depth Respiratory Non-Labored Effort Blood Pressure 90/58 L 102/56 L Blood Pressure Mean O2 Sat by Pulse Oximetry (%) 04/22/20 04/22/20 04/22/20 09:38 12:04 14:00 Temperature Respiratory 20 20 20 Rate Respiratory Depth Respiratory Effort Blood Pressure 118/66 99/55 L Blood Pressure Mean O2 Sat by Pulse Oximetry (%) 04/22/20 04/22/20 04/22/20 18:00 21:00 22:00 Temperature Respiratory 20 18 Rate Respiratory Normal Depth Respiratory Non-Labored Effort Blood Pressure 90/49 L 96/51 L Blood Pressure Mean O2 Sat by Pulse Oximetry (%) 04/23/20 04/23/20 04/23/20 02:00 06:00 09:49 Temperature 98.4 F 98.0 F 98.2 F Respiratory 18 18 16 Rate Respiratory Depth Respiratory Effort Blood Pressure 94/53 L 99/50 L 90/51 L Blood Pressure 63 Mean O2 Sat by Pulse 100 Oximetry (%) Laboratory Tests 04/19/20 04/19/20 04/20/20 04:00 08:40 09:12 WBC 5.6 3.6 L COVID-19 ([facility]) Not detected 04/21/20 04/22/20 04/23/20 11:20 17:00 07:35 WBC 5.6 11.5 H 10.2 H COVID-19 ([facility]) Selected Entries 04/21/20 04/21/20 04/21/20 09:47 16:02 23:45 Breakfast 50% Diet Tolerated Well Well Fair Lunch 25% Supper 25% 04/22/20 04/22/20 04/23/20 09:34 14:00 09:13 Breakfast 75% 75% Diet Tolerated Well Lunch 0 Supper Passed Dysphagia screen upon admission and reg diet/thin liquids ordered. ID w/u in progress Known to me from 2017 admission-71 yo, who lost her disabled daughter 2 weeks ago, with recent onset altered mental status. Reported to have decline in ambulation. Speech,swallowing intact. o x 3 and good historian. Pt denies speech/swallowing difficulty but reports feeling "very weak and terrible". Eyes frequently closed. 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 Cardiovascular: Yes: AFIB (paroxysmal NADIA), CHF, HTN, Other Gastrointestinal: Yes: Ascites Hepatobiliary: Yes: Cirrhosis (likely due to KING with ascites and hepatic encephalopathy) Renal/: Yes: Renal Inusuff ...: No Heme/Onc: Yes: Anemia, Thrombocytopenia Infectious Disease: Yes: Other (Strep mitis bacteremia) - Past Surgical History Past Surgical History: Yes: None - Smoking History Smoking history: Never smoked Have you smoked in the past 12 months: No Aproximately how many cigarettes per day: 0 - Alcohol/Substance Use Hx Alcohol Use: No History of Substance Use: reports: None - Social History 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 ([employer]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 History of Recent Travel: No History - Admission Reason For Visit: SYNCOPE,HYPERAMMONEMIA,ALTERED MENTAL STATUS - Diagnostics X-ray: Report Reviewed CT Scan: Report Reviewed MRI: Report Reviewed - General Mental Status: Alert and Oriented, Awake and Alert, Able to Follow Commands Attention: Mild Impairment Ability to Follow Directions: Good Head/Neck Control: Good - Hearing Hearing: Functional Hearing: Normal Hearing Aide: No With Patient: No Speech Evaluation - Communication Primary Language: ROMANSH Communication: Yes: Dysarthria Oral Expression Ability: Yes: Mild Impairment - Speech Production Able to Make Needs Known: Yes: WNL Intelligibility: Yes: Mildly Impaired - Speech Characteristics Voice Loudness: Normal Voice Pitch: Yes: Normal Voice Phonatory-based Quality: Yes: Hoarse Speech Clarity: < 100% Articulation: Yes: Precise - Language/Auditory Comprehension Follows: Yes: 1 Stage Simple Commands Observation: Able to respond to yes/no queries: Yes, Yes/No Confusion: No, Comprehends Conversational Speech: Yes - Language/Verbal Expression Functional Communication Status: Yes: WNL - Swallow Evaluation/Bedside Assessment Current Nutritional Intake: Regular, Thin Liquids Oral Secretions: Yes: WFL Dentition: Yes: Missing Teeth Facial Symmetry at Rest: Facial Droop Left (slight) Facial Symmetry on Retraction: Facial Droop Left Against Resistance Opening: Weak Against Resistance Closing: Weak Lingual Movement: Symmetric Lingual Speed of Movement: Normal Lingual Movement Strgth Against Opposition: Reduced Lingual Movement Characteristics: Normal Laryngeal Elevation: WFL Laryngeal Movement: Able to Palpate Rate of Intake: WFL Bolus Size: WFL Chewing: WFL Oral Prep Time: WFL A-P Transit: WFL Pocketing: None Timing of Swallow: WFL Coughing/Throat Clear: No Change in Voice: No Recommendations - Speech Evaluation, Impression/Plan Impression: Feels "weak and terrible". Mild dysarthria/hoarse/left facial. Oriented. Language intact. Oriented. Swallowing overtly intact - Disposition Discharge to: To be Determined - Dysphagia Impressions/Plan Dysphagia Impressions: Minimal Impairment *Silent aspiration: cannot be R/O at bedside Dysphagia Treatment Plan: Small Bites, Chin Tuck/Down, Trial Feedings, Facilitative Feeding, Safe Rate, 1/2 tsp. at a time, Elevate HOB during feed Recommendations: Modified Barium Swallow (if cough, congestion, fever) - Recommendations Diet Consistency: Regular Medication Administration: Whole with water Liquids: Thin Liquids Supplement: Ensure, Magic Cup
--- NOTE | 2020-04-23 10:42 | PN ---
Progress Note, Physician History of Present Illness: events noted Chart reviewed Neurologically patient was noted yesterday by the registered nurse with increasing right facial droopiness.Patient was attended to by the hospitalist patient had a CAT scan of the head which revealed no evidence of bleed I reviewed the MRI of the brain that was done 2 days ago patient with acute rightMCA stroke very small lacunar stroke - Current Medication List Current Medications: Active Medications Acetaminophen (Tylenol -) 650 mg PO Q6H PRN PRN Reason: FEVER Last Admin: 04/22/20 12:03 Dose: 650 mg Documented by: Aspirin (Asa -) 81 mg PO DAILY [facility] Last Admin: 04/23/20 09:28 Dose: 81 mg Documented by: Atorvastatin Calcium (Lipitor -) 10 mg PO HS [facility] Last Admin: 04/22/20 21:20 Dose: 10 mg Documented by: Heparin Sodium (Porcine) (Heparin -) 5,000 unit SQ BID [facility] Last Admin: 04/23/20 09:28 Dose: 5,000 unit Documented by: Meropenem 1 gm/ Dextrose 100 mls @ 200 mls/hr IVPB Q12H [facility] Last Admin: 04/23/20 04:52 Dose: 200 mls/hr Documented by: Lactulose (Cephulac (Oral Use)) 20 gm PO TID [facility] Last Admin: 04/23/20 06:02 Dose: Not Given Documented by: Rifaximin (Xifaxan -) 550 mg PO BID [facility] Last Admin: 04/23/20 09:28 Dose: 550 mg Documented by: - Objective Vital Signs: Vital Signs Temperature 98.2 F 04/23/20 09:49 Pulse Rate 82 04/23/20 09:49 Respiratory Rate 16 04/23/20 09:49 Blood Pressure 90/51 L 04/23/20 09:49 O2 Sat by Pulse Oximetry (%) 100 04/23/20 09:49 Constitutional: Yes: Well Nourished Eyes: Yes: WNL Neurological: Yes: Alert, Oriented, Cran Nerves II-XII Intact, Dysarthria ...Motor Strength: WNL Labs: CBC, BMP 04/23/20 07:35 04/23/20 07:35 Problem List - Problems (1) Atypical syncope Code(s): R55 - SYNCOPE AND COLLAPSE (2) Altered mental status Code(s): R41.82 - ALTERED MENTAL STATUS, UNSPECIFIED Qualifiers: Altered mental status type: unspecified Qualified Code(s): R41.82 - Altered mental status, unspecified Assessment/Plan 1. Continue the baby aspirin. 2. Plavix 75 mg once daily. 3. Continue the heparin while in the bed. 4. Homocystine level. 6. Speech and swallow evaluation follow-up.
--- NOTE | 2020-04-23 13:11 | EKG ---
Test Reason : Blood Pressure : / mmHG Vent. Rate : 103 BPM Atrial Rate : 103 BPM P-R Int : 180 ms QRS Dur : 074 ms QT Int : 358 ms P-R-T Axes : 052 -04 038 degrees QTc Int : 468 ms SINUS TACHYCARDIA OTHERWISE NORMAL ECG WHEN COMPARED WITH ECG OF 19-APR-2020 05:05, VENT. RATE HAS INCREASED BY 43 BPM Confirmed by MD VERMA MOYSES ([id number]) on 04/23/2020 1:10:48 PM Referred By: Confirmed By:ERICK VERMA MD
--- NOTE | 2020-04-23 13:27 | PN ---
Progress Note (short form) - Note Progress Note: afebrile today cultures pending alert no complaints Vital Signs Period Temp Pulse Resp BP Sys/Patel Pulse Ox Last 24 Hr 98.0 F-101.0 F 72-121 16-20 90-99/49-55 96-100 cor-rrr lungs clear abd soft,nt ext no edema CBC, BMP 04/23/20 07:35 04/23/20 07:35 Microbiology 04/21/20 18:20 Urine - Urine - Catheterized Urine Culture - Final Lactose Fermenting Neg Bacilli blood cultures pending a/p New fever stat blood cultures urine culture has been sent cxray ordered echo vanco meropenem history of esbl organisms new CVA
[2020-04-23] MEDS ORDERED: VANCOMYCIN 1 GRAM (PRE-DOCKED) 1,000 MG/250 ML BAG IVPB ONE (17:00)
[2020-04-23 19:42] VITALS: BMI 28.7
[2020-04-23] MEDS: ATORVASTATIN CA 10 MG TABLET (FP) PO SCH (22:28)
[2020-04-24] MEDS ORDERED: MEROPENEM 1 GM VIAL (RESTRICTED TO ID) IVPB ONE ×2 (05:53→17:36)
[2020-04-24] MEDS ORDERED: DEXTROSE 5%-WATER 100 ML IVPB ONE ×2 (05:53→17:37)
[2020-04-24] MEDS: MEROPENEM 1 GM in DEXTROSE 5%-WATER 100 ML IVPB SCH ×2 (05:55→17:40)
[2020-04-24] MEDS: LACTULOSE 20 GM/30 ML UDC (FOR ORAL USE ONLY) PO SCH ×3 (06:04→21:49)
--- NOTE | 2020-04-24 06:49 | PN ---
Progress Note, Physician - Current Medication List Current Medications: Active Medications Acetaminophen (Tylenol -) 650 mg PO Q6H PRN PRN Reason: FEVER Last Admin: 04/22/20 12:03 Dose: 650 mg Documented by: Aspirin (Asa -) 81 mg PO DAILY [facility] Last Admin: 04/23/20 09:28 Dose: 81 mg Documented by: Atorvastatin Calcium (Lipitor -) 10 mg PO HS [facility] Last Admin: 04/23/20 22:28 Dose: 10 mg Documented by: Heparin Sodium (Porcine) (Heparin -) 5,000 unit SQ BID [facility] Last Admin: 04/23/20 22:28 Dose: 5,000 unit Documented by: Meropenem 1 gm/ Dextrose 100 mls @ 200 mls/hr IVPB Q12H [facility] Last Admin: 04/24/20 05:55 Dose: 200 mls/hr Documented by: Lactulose (Cephulac (Oral Use)) 20 gm PO TID [facility] Last Admin: 04/24/20 06:04 Dose: 10 gm Documented by: Rifaximin (Xifaxan -) 550 mg PO BID [facility] Last Admin: 04/23/20 22:28 Dose: 550 mg Documented by: - Objective Vital Signs: Vital Signs Temperature 98.7 F 04/24/20 06:00 Pulse Rate 96 H 04/24/20 06:00 Respiratory Rate 18 04/24/20 06:00 Blood Pressure 91/54 L 04/24/20 06:00 O2 Sat by Pulse Oximetry (%) 97 04/24/20 06:00 Cardiovascular: Yes: S1, S2 Respiratory: Yes: Regular, CTA Bilaterally Gastrointestinal: Yes: Normal Bowel Sounds, Soft Labs: CBC, BMP 04/23/20 07:35 04/23/20 07:35 Problem List - Problems (1) Syncope Assessment/Plan: maybe due volume depletion--and acute cva follow labs pt asa/statin neuro appreciated Code(s): R55 - SYNCOPE AND COLLAPSE Qualifiers: Syncope type: unspecified Qualified Code(s): R55 - Syncope and collapse (2) Weakness Assessment/Plan: pt may need snf Code(s): R53.1 - WEAKNESS (3) Afib Assessment/Plan: per cardio Code(s): I48.91 - UNSPECIFIED ATRIAL FIBRILLATION (4) CKD (chronic kidney disease) Assessment/Plan: Abnormal Lab Results 04/20/20 04/20/20 04/20/20 09:12 09:12 09:12 WBC 3.6 L RBC 3.44 L Hgb 10.2 L Hct 31.3 L RDW 16.1 H Plt Count 46 L Anion Gap 5 L BUN 22.5 H Creatinine 1.6 H Total Bilirubin 2.2 H AST 46 H Ammonia 111.40 H Albumin 2.3 L HDL Cholesterol 27 L monitor trends Code(s): N18.9 - CHRONIC KIDNEY DISEASE, UNSPECIFIED (5) HTN (hypertension) Assessment/Plan: Vital Signs Period Temp Pulse Resp BP Sys/Patel Pulse Ox Last 24 Hr 97.6 F-98.3 F 66-86 18-20 97-102/53-62 96-99 ivf monitor off meds Code(s): I10 - ESSENTIAL (PRIMARY) HYPERTENSION (6) CVA (cerebral vascular accident) Assessment/Plan: as above asa statin Code(s): I63.9 - CEREBRAL INFARCTION, UNSPECIFIED (7) Fever Assessment/Plan: w/u ordered id following abx per id Microbiology 04/22/20 19:30 Blood - Peripheral Venous Blood Culture - Preliminary NO GROWTH OBTAINED AFTER 24 HOURS, INCUBATION TO CONTINUE FOR 4 DAYS. 04/22/20 17:00 Blood - Peripheral Venous Blood Culture - Preliminary NO GROWTH OBTAINED AFTER 24 HOURS, INCUBATION TO CONTINUE FOR 4 DAYS. 04/21/20 18:20 Urine - Urine - Catheterized Urine Culture - Final Lactose Fermenting Neg Bacilli Code(s): R50.9 - FEVER, UNSPECIFIED
--- NOTE | 2020-04-24 09:56 | PN ---
Progress Note, DISHWASHER - Note Progress Note: Selected Entries - Dysphagia Impressions/Plan Dysphagia Impressions: Minimal Impairment *Silent aspiration: cannot be R/O at bedside Dysphagia Treatment Plan: Small Bites, Chin Tuck/Down, Trial Feedings, Facilitative Feeding, Safe Rate, 1/2 tsp. at a time, Elevate HOB during feed Recommendations: Modified Barium Swallow (if cough, congestion, fever) - Recommendations Diet Consistency: Regular Medication Administration: Whole with water Liquids: Thin Liquids Supplement: Ensure, Magic Cup 04/23/20 04/23/20 04/23/20 09:13 13:50 22:00 Breakfast 75% Diet Tolerated Well Well Well Lunch 75% Supper 75% Temperature Pulse Rate Blood Pressure 04/24/20 04/24/20 02:00 06:00 Breakfast Diet Tolerated Lunch Supper Temperature 99.2 F 98.7 F Pulse Rate 94 H 96 H Blood Pressure 83/52 L 91/54 L Laboratory Tests 04/21/20 04/22/20 04/23/20 11:20 17:00 07:35 WBC 5.6 11.5 H 10.2 H Looks much better, oob, verbal, dysphonia which pt reports is LT. Improved left facial retraction/facial symmetry
[2020-04-24] MEDS ORDERED: PT OWN MED DRAWER 7, Y5N ONE ×2 (10:16→21:43)
[2020-04-24] MEDS: HEPARIN NA (PORCINE) 5,000 UNITS/ML 1ML VIAL SQ SCH ×2 (10:25→21:48)
[2020-04-24] MEDS: RIFAXIMIN 550 MG TABLET (UD) PO SCH ×2 (10:26→21:48)
[2020-04-24] MEDS: ASPIRIN 81 MG CHEWABLE TABLETS PO SCH (10:26)
[2020-04-24 12:22] LABS: BASO % 0.4 % (0-2.0); HEMATOCRIT 30.7 % (32.4-45.2); LYMPH % 17.1 % (8-40); MCH 29.8 pg (25.7-33.7); MCHC 32.6 g/dl (32.0-36.0); MEAN CELL VOLUME 91.4 fl (80-96); MEAN PLT VOLUME 9.7 fl (7.5-11.1); MONO % 10.1 % (3.8-10.2); NEUT % 70.4 % (42.8-82.8); PLATELET COUNT 47 K/MM3 (134-434); RBC 3.36 M/mm3 (3.60-5.2); WHITE BLOOD COUNT 11.6 K/mm3 (4.0-10.0)
--- NOTE | 2020-04-24 12:27 | PN ---
Progress Note, Physician History of Present Illness: No events over night Face is dalila same Seen by the Speech therpaist Added Plavix this am - Current Medication List Current Medications: Active Medications Acetaminophen (Tylenol -) 650 mg PO Q6H PRN PRN Reason: FEVER Last Admin: 04/22/20 12:03 Dose: 650 mg Documented by: Aspirin (Asa -) 81 mg PO DAILY [facility] Last Admin: 04/24/20 10:26 Dose: 81 mg Documented by: Atorvastatin Calcium (Lipitor -) 10 mg PO HS [facility] Last Admin: 04/23/20 22:28 Dose: 10 mg Documented by: Heparin Sodium (Porcine) (Heparin -) 5,000 unit SQ BID [facility] Last Admin: 04/24/20 10:25 Dose: 5,000 unit Documented by: Meropenem 1 gm/ Dextrose 100 mls @ 200 mls/hr IVPB Q12H [facility] Last Admin: 04/24/20 05:55 Dose: 200 mls/hr Documented by: Lactulose (Cephulac (Oral Use)) 20 gm PO TID [facility] Last Admin: 04/24/20 06:04 Dose: 10 gm Documented by: Rifaximin (Xifaxan -) 550 mg PO BID [facility] Last Admin: 04/24/20 10:26 Dose: 550 mg Documented by: - Objective Vital Signs: Vital Signs Temperature 98.4 F 04/24/20 10:00 Pulse Rate 96 H 04/24/20 10:00 Respiratory Rate 16 04/24/20 10:00 Blood Pressure 94/50 L 04/24/20 10:00 O2 Sat by Pulse Oximetry (%) 97 04/24/20 10:00 Constitutional: Yes: Well Nourished Eyes: Yes: WNL HENT: Yes: WNL Neurological: Yes: Alert, Oriented, Babinski positive, Cran Nerves II-XII Intact ...Motor Strength: WNL Problem List - Problems (1) Atypical syncope Code(s): R55 - SYNCOPE AND COLLAPSE (2) Altered mental status Code(s): R41.82 - ALTERED MENTAL STATUS, UNSPECIFIED Qualifiers: Altered mental status type: unspecified Qualified Code(s): R41.82 - Altered mental status, unspecified Assessment/Plan Plavix pls ASA SQ Heparin PT Follow up ID
[2020-04-24 12:59] LABS: BILIRUBIN,TOTAL 2.4 mg/dL (0.2-1); BLOOD UREA NITROGEN 19.6 mg/dL (7-18); CALCIUM 8.7 mg/dL (8.5-10.1); CREATININE 1.6 mg/dL (0.55-1.3); POTASSIUM 3.9 mmol/L (3.5-5.1)
--- NOTE | 2020-04-24 15:58 | PN ---
Progress Note (short form) - Note Progress Note: no further fevers alert notes cramps with lactulose Vital Signs Period Temp Pulse Resp BP Sys/Patel Pulse Ox Last 24 Hr 98.1 F-99.2 F 88-99 16-18 83-120/42-63 93-99 cor-rrr lungs clear abd soft,nt ext no edema CBC, BMP 04/24/20 12:02 04/24/20 12:02 Microbiology 04/21/20 18:20 Urine - Urine - Catheterized Urine Culture - Final Lactose Fermenting Neg Bacilli 04/22/20 19:30 Blood - Peripheral Venous Blood Culture - Preliminary NO GROWTH OBTAINED AFTER 24 HOURS, INCUBATION TO CON TINUE FOR 4 DAYS. 04/22/20 17:00 Blood - Peripheral Venous Blood Culture - Preliminary NO GROWTH OBTAINED AFTER 24 HOURS, INCUBATION TO CONTINUE FOR 4 DAYS. a/p source of fever not clear- would get ct scan abd/pelvis continue meropenem for now history of esbl organisms new CVA history of liver cirrhosis
[2020-04-24] MEDS: ATORVASTATIN CA 10 MG TABLET (FP) PO SCH (21:48)
[2020-04-25] MEDS ORDERED: DEXTROSE 5%-WATER 100 ML IVPB ONE ×2 (06:18→16:22)
[2020-04-25] MEDS ORDERED: MEROPENEM 1 GM VIAL (RESTRICTED TO ID) IVPB ONE ×2 (06:18→16:22)
[2020-04-25] MEDS: MEROPENEM 1 GM in DEXTROSE 5%-WATER 100 ML IVPB SCH ×2 (06:22→16:33)
[2020-04-25] MEDS: LACTULOSE 20 GM/30 ML UDC (FOR ORAL USE ONLY) PO SCH ×3 (06:23→22:13)
--- NOTE | 2020-04-25 07:58 | PN ---
Progress Note, Physician - Current Medication List Current Medications: Active Medications Acetaminophen (Tylenol -) 650 mg PO Q6H PRN PRN Reason: FEVER Last Admin: 04/22/20 12:03 Dose: 650 mg Documented by: Aspirin (Asa -) 81 mg PO DAILY [facility] Last Admin: 04/24/20 10:26 Dose: 81 mg Documented by: Atorvastatin Calcium (Lipitor -) 10 mg PO HS [facility] Last Admin: 04/24/20 21:48 Dose: 10 mg Documented by: Clopidogrel Bisulfate (Plavix -) 75 mg PO DAILY [facility] Heparin Sodium (Porcine) (Heparin -) 5,000 unit SQ BID [facility] Last Admin: 04/24/20 21:48 Dose: 5,000 unit Documented by: Meropenem 1 gm/ Dextrose 100 mls @ 200 mls/hr IVPB Q12H [facility] Last Admin: 04/25/20 06:22 Dose: 200 mls/hr Documented by: Lactulose (Cephulac (Oral Use)) 20 gm PO TID [facility] Last Admin: 04/25/20 06:23 Dose: Not Given Documented by: Rifaximin (Xifaxan -) 550 mg PO BID [facility] Last Admin: 04/24/20 21:48 Dose: 550 mg Documented by: - Objective Vital Signs: Vital Signs Temperature 98.7 F 04/25/20 05:58 Pulse Rate 86 04/25/20 05:58 Respiratory Rate 18 04/25/20 05:58 Blood Pressure 94/56 L 04/25/20 05:58 O2 Sat by Pulse Oximetry (%) 100 04/24/20 22:00 Cardiovascular: Yes: S1, S2 Respiratory: Yes: Regular, CTA Bilaterally Gastrointestinal: Yes: Normal Bowel Sounds, Soft Labs: CBC, BMP 04/24/20 12:02 04/24/20 12:02 Problem List - Problems (1) Syncope Assessment/Plan: maybe due volume depletion--and acute cva follow labs pt asa/plavix/statin neuro appreciated Code(s): R55 - SYNCOPE AND COLLAPSE Qualifiers: Syncope type: unspecified Qualified Code(s): R55 - Syncope and collapse (2) Weakness Assessment/Plan: pt may need snf Code(s): R53.1 - WEAKNESS (3) Afib Assessment/Plan: paroxysmal--sinus -off eliquis Code(s): I48.91 - UNSPECIFIED ATRIAL FIBRILLATION (4) CKD (chronic kidney disease) Assessment/Plan: Abnormal Lab Results 04/20/20 04/20/20 04/20/20 09:12 09:12 09:12 WBC 3.6 L RBC 3.44 L Hgb 10.2 L Hct 31.3 L RDW 16.1 H Plt Count 46 L Anion Gap 5 L BUN 22.5 H Creatinine 1.6 H Total Bilirubin 2.2 H AST 46 H Ammonia 111.40 H Albumin 2.3 L HDL Cholesterol 27 L monitor trends Code(s): N18.9 - CHRONIC KIDNEY DISEASE, UNSPECIFIED (5) HTN (hypertension) Assessment/Plan: Vital Signs Period Temp Pulse Resp BP Sys/Patel Pulse Ox Last 24 Hr 97.6 F-98.3 F 66-86 18-20 97-102/53-62 96-99 ivf monitor off meds Code(s): I10 - ESSENTIAL (PRIMARY) HYPERTENSION (6) CVA (cerebral vascular accident) Assessment/Plan: as above asa statin and asa and plavix Code(s): I63.9 - CEREBRAL INFARCTION, UNSPECIFIED (7) Fever Assessment/Plan: ct abd and pelvis id following abx per id Microbiology 04/22/20 19:30 Blood - Peripheral Venous Blood Culture - Preliminary NO GROWTH OBTAINED AFTER 24 HOURS, INCUBATION TO CONTINUE FOR 4 DAYS. 04/22/20 17:00 Blood - Peripheral Venous Blood Culture - Preliminary NO GROWTH OBTAINED AFTER 24 HOURS, INCUBATION TO CONTINUE FOR 4 DAYS. 04/21/20 18:20 Urine - Urine - Catheterized Urine Culture - Final Lactose Fermenting Neg Bacilli Code(s): R50.9 - FEVER, UNSPECIFIED
[2020-04-25] MEDS ORDERED: PT OWN MED DRAWER 7, Y5N ONE ×3 (08:45→22:11)
[2020-04-25] MEDS: CLOPIDOGREL BISULFATE 75 MG TABLET (FP) PO SCH (09:52)
[2020-04-25] MEDS: ASPIRIN 81 MG CHEWABLE TABLETS PO SCH (09:52)
[2020-04-25] MEDS: HEPARIN NA (PORCINE) 5,000 UNITS/ML 1ML VIAL SQ SCH ×2 (09:52→22:13)
[2020-04-25] MEDS: RIFAXIMIN 550 MG TABLET (UD) PO SCH ×2 (09:53→22:13)
--- NOTE | 2020-04-25 17:33 | PN ---
Progress Note (short form) - Note Progress Note: no further fevers alert oob in chair Vital Signs Period Temp Pulse Resp BP Sys/Patel Pulse Ox Last 24 Hr 97.9 F-98.7 F 80-88 17-18 90-101/46-56 96-100 cor-rrr lungs clear abd soft,nt ext no edema CBC, BMP 04/24/20 12:02 04/24/20 12:[address] scan results a/p source of fever not clear- if ct scan is negative can d/c meropenem history of esbl organisms new CVA history of liver cirrhosis
[2020-04-25] MEDS: ATORVASTATIN CA 10 MG TABLET (FP) PO SCH (22:13)
[2020-04-26] MEDS: ACETAMINOPHEN 325 MG TABLET (FP) PO PRN (00:16)
[2020-04-26] MEDS ORDERED: MEROPENEM 1 GM VIAL (RESTRICTED TO ID) IVPB ONE ×2 (04:32→16:02)
[2020-04-26] MEDS ORDERED: DEXTROSE 5%-WATER 100 ML IVPB ONE ×2 (04:32→16:02)
[2020-04-26] MEDS: MEROPENEM 1 GM in DEXTROSE 5%-WATER 100 ML IVPB SCH ×2 (04:39→16:04)
[2020-04-26] MEDS: LACTULOSE 20 GM/30 ML UDC (FOR ORAL USE ONLY) PO SCH ×4 (06:36→23:11)
[2020-04-26] MEDS ORDERED: PT OWN MED DRAWER 7, Y5N ONE ×2 (09:08→22:08)
[2020-04-26] MEDS: ASPIRIN 81 MG CHEWABLE TABLETS PO SCH (09:32)
[2020-04-26] MEDS: CLOPIDOGREL BISULFATE 75 MG TABLET (FP) PO SCH (09:32)
[2020-04-26] MEDS: HEPARIN NA (PORCINE) 5,000 UNITS/ML 1ML VIAL SQ SCH ×2 (09:32→22:20)
[2020-04-26] MEDS: RIFAXIMIN 550 MG TABLET (UD) PO SCH ×2 (09:33→22:20)
--- NOTE | 2020-04-26 10:30 | PN ---
Progress Note, Physician - Current Medication List Current Medications: Active Medications Acetaminophen (Tylenol -) 650 mg PO Q6H PRN PRN Reason: FEVER Last Admin: 04/26/20 00:16 Dose: 650 mg Documented by: Aspirin (Asa -) 81 mg PO DAILY [facility] Last Admin: 04/26/20 09:32 Dose: 81 mg Documented by: Atorvastatin Calcium (Lipitor -) 10 mg PO HS [facility] Last Admin: 04/25/20 22:13 Dose: 10 mg Documented by: Clopidogrel Bisulfate (Plavix -) 75 mg PO DAILY [facility] Last Admin: 04/26/20 09:32 Dose: 75 mg Documented by: Heparin Sodium (Porcine) (Heparin -) 5,000 unit SQ BID [facility] Last Admin: 04/26/20 09:32 Dose: 5,000 unit Documented by: Meropenem 1 gm/ Dextrose 100 mls @ 200 mls/hr IVPB Q12H [facility] Last Admin: 04/26/20 04:39 Dose: 200 mls/hr Documented by: Lactulose (Cephulac (Oral Use)) 20 gm PO TID [facility] Last Admin: 04/26/20 06:36 Dose: Not Given Documented by: Rifaximin (Xifaxan -) 550 mg PO BID [facility] Last Admin: 04/26/20 09:33 Dose: 550 mg Documented by: - Objective Vital Signs: Vital Signs Temperature 98.3 F 04/26/20 09:30 Pulse Rate 83 04/26/20 06:00 Respiratory Rate 18 04/26/20 09:30 Blood Pressure 90/61 04/26/20 09:30 O2 Sat by Pulse Oximetry (%) 100 04/26/20 09:30 Cardiovascular: Yes: S1, S2 Respiratory: Yes: Regular, CTA Bilaterally Gastrointestinal: Yes: Normal Bowel Sounds, Soft Labs: CBC, BMP 04/24/20 12:02 04/24/20 12:02 Problem List - Problems (1) Syncope Assessment/Plan: maybe due volume depletion--and acute cva follow labs pt asa/statin neuro appreciated Code(s): R55 - SYNCOPE AND COLLAPSE Qualifiers: Syncope type: unspecified Qualified Code(s): R55 - Syncope and collapse (2) Weakness Assessment/Plan: pt may need snf Code(s): R53.1 - WEAKNESS (3) Afib Assessment/Plan: per cardio Code(s): I48.91 - UNSPECIFIED ATRIAL FIBRILLATION (4) CKD (chronic kidney disease) Assessment/Plan: Abnormal Lab Results 04/20/20 04/20/20 04/20/20 09:12 09:12 09:12 WBC 3.6 L RBC 3.44 L Hgb 10.2 L Hct 31.3 L RDW 16.1 H Plt Count 46 L Anion Gap 5 L BUN 22.5 H Creatinine 1.6 H Total Bilirubin 2.2 H AST 46 H Ammonia 111.40 H Albumin 2.3 L HDL Cholesterol 27 L monitor trends Code(s): N18.9 - CHRONIC KIDNEY DISEASE, UNSPECIFIED (5) HTN (hypertension) Code(s): I10 - ESSENTIAL (PRIMARY) HYPERTENSION (6) CVA (cerebral vascular accident) Assessment/Plan: as above asa /plavix/statin Code(s): I63.9 - CEREBRAL INFARCTION, UNSPECIFIED (7) Fever Assessment/Plan: await ct rsults id following abx per id Microbiology 04/22/20 19:30 Blood - Peripheral Venous Blood Culture - Preliminary NO GROWTH OBTAINED AFTER 24 HOURS, INCUBATION TO CONTINUE FOR 4 DAYS. 04/22/20 17:00 Blood - Peripheral Venous Blood Culture - Preliminary NO GROWTH OBTAINED AFTER 24 HOURS, INCUBATION TO CONTINUE FOR 4 DAYS. 04/21/20 18:20 Urine - Urine - Catheterized Urine Culture - Final Lactose Fermenting Neg Bacilli Code(s): R50.9 - FEVER, UNSPECIFIED
[2020-04-26] MEDS: ATORVASTATIN CA 10 MG TABLET (FP) PO SCH (22:20)
[2020-04-27] MEDS ORDERED: MEROPENEM 1 GM VIAL (RESTRICTED TO ID) IVPB ONE (06:05)
[2020-04-27] MEDS ORDERED: DEXTROSE 5%-WATER 100 ML IVPB ONE (06:06)
[2020-04-27] MEDS: LACTULOSE 20 GM/30 ML UDC (FOR ORAL USE ONLY) PO SCH ×3 (06:07→21:41)
[2020-04-27] MEDS: MEROPENEM 1 GM in DEXTROSE 5%-WATER 100 ML IVPB SCH (06:07)
--- NOTE | 2020-04-27 09:41 | PN ---
Progress Note (short form) - Note Progress Note: alert no complaints Vital Signs Period Temp Pulse Resp BP Sys/Patel Pulse Ox Last 24 Hr 97.9 F-98.5 F 78-96 18-20 82-96/45-66 98-98 cor-rrr lungs decreased bs at bases abd soft,nt ext no edema CBC, BMP 04/24/20 12:02 04/24/20 12:02 Microbiology 04/22/20 17:00 Blood - Peripheral Venous Blood Culture - Final NO GROWTH AFTER 5 DAYS INCUBATION 04/22/20 19:30 Blood - Peripheral Venous Blood Culture - Preliminary NO GROWTH OBTAINED AFTER 96 HOURS, INCUBATION TO CONTINUE FOR 1 DAYS. 04/21/20 18:20 Urine - Urine - Catheterized Urine Culture - Final Lactose Fermenting Neg Bacilli a/p ct scan noted- ?colonic malignancy will d/c antibioitics new CVA history of liver cirrhosis d/w dr grimaldo d/w GI
[2020-04-27] MEDS ORDERED: PT OWN MED DRAWER 7, Y5N ONE (10:21)
[2020-04-27] MEDS: HEPARIN NA (PORCINE) 5,000 UNITS/ML 1ML VIAL SQ SCH (10:23)
[2020-04-27] MEDS: RIFAXIMIN 550 MG TABLET (UD) PO SCH (10:23)
[2020-04-27] MEDS: ASPIRIN 81 MG CHEWABLE TABLETS PO SCH (10:23)
[2020-04-27] MEDS: CLOPIDOGREL BISULFATE 75 MG TABLET (FP) PO SCH (10:23)
--- NOTE | 2020-04-27 10:39 | CON.GI ---
Consult Consult Specialty:: GI Referred by:: Dr Carson Reason for Consultation:: abnormal CT scan - History of Present Illness Chief Complaint: 74 F admitted with recurrent fever History of Present Illness: 74 y.o. 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 Pt states her last colonoscopy was in 2005 at [facility], none since then. See past consults (January, February). 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: Other Cardio/Vascular: Yes: AFIB (paroxysmal NADIA), CHF, HTN, Other Gastrointestinal: Yes: Ascites Hepatobiliary: Yes: Cirrhosis (likely due to [place] with ascites and hepatic encephalopathy) Renal/: Yes: Renal Inusuff ...: No Infectious Disease: Yes: Other (Strep mitis bacteremia) - Past Surgical History Past Surgical History: Yes: None - Alcohol/Substance Use Hx Alcohol Use: No History of Substance Use: reports: None - Smoking History Smoking history: Never smoked Have you smoked in the past 12 months: No Aproximately how many cigarettes per day: 0 - Social History Usual Living Arrangement: Halfway 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 History of Recent Travel: No Home Medications - Allergies Allergies/Adverse Reactions: Allergies Allergy/AdvReac Type Severity Reaction Status Date / Time No Known Allergies Allergy Verified 03/02/20 12:42 - Home Medications Home Medications: Ambulatory Orders Furosemide 40 mg PO BID 04/19/20 Lactulose (Oral Use) [Cephulac -] 20 gm PO QID 04/19/20 Metoprolol Tartrate 25 mg PO DAILY 04/19/20 Rifaximin [Xifaxan] 550 mg PO DAILY 04/19/20 Spironolactone 100 mg PO DAILY 04/19/20 Family Medical History Family History: Unable to Obtain Family Hx Cardiac Disorders: Father ( of [place] age 73) Physical Exam-GI Vital Signs: Vital Signs Temperature 98.4 F 04/27/20 09:50 Pulse Rate 96 H 04/27/20 09:50 Respiratory Rate 18 04/27/20 09:50 Blood Pressure 95/66 04/27/20 09:50 O2 Sat by Pulse Oximetry (%) 98 04/27/20 09:50 Gastrointestinal Inspection: Yes: Ascites Labs: CBC, BMP 04/24/20 12:02 04/24/20 12:02 Imaging - Results Cat Scan: Report Reviewed, Image Reviewed Assessment/Plan Probable colon mass. Given her ascites and thrombocytopenia as well as a recent CVA it is questionable whether this mass, if identified, can be operated on. Ms Rodgers wants me to talk to her son about colonoscopy but says he will not be available until tomorrow. Will discuss with him tomorrow. Note that since she is on ASA and Plavix and has a platelet count of 42K biopsy will not be possible during colonoscopy. Also I would suggest an EGD to look for varices and if large varices are found -- not unlikely -- then serious consideration should be given on the advisability of dual antiplatelet therapy. At a minimum I have added a PPI to her regimen to help prevent nonvariceal GI bleeding.
--- NOTE | 2020-04-27 10:59 | PN ---
Progress Note, Physician - Current Medication List Current Medications: Active Medications Acetaminophen (Tylenol -) 650 mg PO Q6H PRN PRN Reason: FEVER Last Admin: 04/26/20 00:16 Dose: 650 mg Documented by: Aspirin (Asa -) 81 mg PO DAILY [facility] Last Admin: 04/27/20 10:23 Dose: 81 mg Documented by: Atorvastatin Calcium (Lipitor -) 10 mg PO HS [facility] Last Admin: 04/26/20 22:20 Dose: 10 mg Documented by: Clopidogrel Bisulfate (Plavix -) 75 mg PO DAILY [facility] Last Admin: 04/27/20 10:23 Dose: 75 mg Documented by: Heparin Sodium (Porcine) (Heparin -) 5,000 unit SQ BID [facility] Last Admin: 04/27/20 10:23 Dose: 5,000 unit Documented by: Lactulose (Cephulac (Oral Use)) 20 gm PO TID [facility] Last Admin: 04/27/20 06:07 Dose: Not Given Documented by: Pantoprazole Sodium (Protonix -) 40 mg PO DAILY [facility] Rifaximin (Xifaxan -) 550 mg PO BID [facility] Last Admin: 04/27/20 10:23 Dose: 550 mg Documented by: - Objective Vital Signs: Vital Signs Temperature 98.4 F 04/27/20 09:50 Pulse Rate 96 H 04/27/20 09:50 Respiratory Rate 18 04/27/20 09:50 Blood Pressure 95/66 04/27/20 09:50 O2 Sat by Pulse Oximetry (%) 98 04/27/20 09:50 Cardiovascular: Yes: S1, S2 Respiratory: Yes: Regular, CTA Bilaterally Gastrointestinal: Yes: Normal Bowel Sounds, Soft Labs: CBC, BMP 04/24/20 12:02 04/24/20 12:02 Problem List - Problems (1) Syncope Assessment/Plan: maybe due volume depletion--and acute cva follow labs pt asa/statin neuro appreciated Code(s): R55 - SYNCOPE AND COLLAPSE Qualifiers: Syncope type: unspecified Qualified Code(s): R55 - Syncope and collapse (2) Weakness Assessment/Plan: pt may need snf Code(s): R53.1 - WEAKNESS (3) Afib Assessment/Plan: per cardio Code(s): I48.91 - UNSPECIFIED ATRIAL FIBRILLATION (4) CKD (chronic kidney disease) Assessment/Plan: Abnormal Lab Results 04/20/20 04/20/20 04/20/20 09:12 09:12 09:12 WBC 3.6 L RBC 3.44 L Hgb 10.2 L Hct 31.3 L RDW 16.1 H Plt Count 46 L Anion Gap 5 L BUN 22.5 H Creatinine 1.6 H Total Bilirubin 2.2 H AST 46 H Ammonia 111.40 H Albumin 2.3 L HDL Cholesterol 27 L monitor trends Code(s): N18.9 - CHRONIC KIDNEY DISEASE, UNSPECIFIED (5) HTN (hypertension) Assessment/Plan: Vital Signs Period Temp Pulse Resp BP Sys/Patel Pulse Ox Last 24 Hr 97.6 F-98.3 F 66-86 18-20 97-102/53-62 96-99 ivf monitor off meds Code(s): I10 - ESSENTIAL (PRIMARY) HYPERTENSION (6) CVA (cerebral vascular accident) Assessment/Plan: as above asa /plavix/statin Code(s): I63.9 - CEREBRAL INFARCTION, UNSPECIFIED (7) Fever Assessment/Plan: CT results noted and discussed with id,gi and pt id following abx per id Microbiology 04/22/20 19:30 Blood - Peripheral Venous Blood Culture - Preliminary NO GROWTH OBTAINED AFTER 24 HOURS, INCUBATION TO CO NTINUE FOR 4 DAYS. 04/22/20 17:00 Blood - Peripheral Venous Blood Culture - Preliminary NO GROWTH OBTAINED AFTER 24 HOURS, INCUBATION TO CON TINUE FOR 4 DAYS. 04/21/20 18:20 Urine - Urine - Catheterized Urine Culture - Final Lactose Fermenting Neg Bacilli Code(s): R50.9 - FEVER, UNSPECIFIED (8) Mass of colon Assessment/Plan: GI CONSULT work up per GI colonoscopy discussed with pt and states to call her son in am Code(s): K63.89 - OTHER SPECIFIED DISEASES OF INTESTINE
[2020-04-27] MEDS: PANTOPRAZOLE 40 MG TABLET PO SCH ×2 (11:08→11:11)
[2020-04-27] MEDS: ATORVASTATIN CA 10 MG TABLET (FP) PO SCH (21:40)
[2020-04-28] MEDS: LACTULOSE 20 GM/30 ML UDC (FOR ORAL USE ONLY) PO SCH ×3 (05:22→21:26)
--- NOTE | 2020-04-28 07:38 | PN ---
Progress Note (short form) - Note Progress Note: Pt awake, denies abdominal pain. Would appreciate input from neurology business info consultant as to whether patient's admission was precipitated by new CVA/TIA or by hepatic encephalopathy. I am very concerned about dual antiplatelet therapy in a woman with portal hypertension and a probable colonic mass. I also am concerned about giving anesthesia and performing procedures on someone with a fresh ischemic event. Will await neurology clearance/re-evaluation before scheduling any endoscopic studies.
[2020-04-28] MEDS: CLOPIDOGREL BISULFATE 75 MG TABLET (FP) PO SCH (10:09)
[2020-04-28] MEDS: ASPIRIN 81 MG CHEWABLE TABLETS PO SCH (10:09)
[2020-04-28] MEDS: PANTOPRAZOLE 40 MG TABLET PO SCH (10:09)
--- NOTE | 2020-04-28 11:43 | PN ---
Progress Note, Physician History of Present Illness: no complaints this am sitting up pt updated will discuss with son when available--pt states unavailable till this afternoon - Current Medication List Current Medications: Active Medications Acetaminophen (Tylenol -) 650 mg PO Q6H PRN PRN Reason: FEVER Last Admin: 04/26/20 00:16 Dose: 650 mg Documented by: Aspirin (Asa -) 81 mg PO DAILY [facility] Last Admin: 04/28/20 10:09 Dose: 81 mg Documented by: Atorvastatin Calcium (Lipitor -) 10 mg PO HS [facility] Last Admin: 04/27/20 21:40 Dose: 10 mg Documented by: Clopidogrel Bisulfate (Plavix -) 75 mg PO DAILY [facility] Last Admin: 04/28/20 10:09 Dose: 75 mg Documented by: Lactulose (Cephulac (Oral Use)) 20 gm PO TID [facility] Last Admin: 04/28/20 05:22 Dose: Not Given Documented by: Pantoprazole Sodium (Protonix -) 40 mg PO DAILY [facility] Last Admin: 04/28/20 10:09 Dose: 40 mg Documented by: - Objective Vital Signs: Vital Signs Temperature 98.1 F 04/28/20 09:31 Pulse Rate 83 04/28/20 09:31 Respiratory Rate 18 04/28/20 09:31 Blood Pressure 106/55 L 04/28/20 09:31 O2 Sat by Pulse Oximetry (%) 100 04/28/20 09:31 Cardiovascular: Yes: S1, S2 Respiratory: Yes: Regular, CTA Bilaterally Gastrointestinal: Yes: Normal Bowel Sounds, Soft Neurological: Yes: Alert, Oriented Labs: CBC, BMP 04/24/20 12:02 04/24/20 12:02 Problem List - Problems (1) Syncope Assessment/Plan: maybe due volume depletion--and acute cva follow labs pt asa/statin neuro appreciated Code(s): R55 - SYNCOPE AND COLLAPSE Qualifiers: Syncope type: unspecified Qualified Code(s): R55 - Syncope and collapse (2) Weakness Code(s): R53.1 - WEAKNESS (3) Afib Assessment/Plan: per cardio Code(s): I48.91 - UNSPECIFIED ATRIAL FIBRILLATION (4) CKD (chronic kidney disease) Assessment/Plan: Abnormal Lab Results 04/20/20 04/20/20 04/20/20 09:12 09:12 09:12 WBC 3.6 L RBC 3.44 L Hgb 10.2 L Hct 31.3 L RDW 16.1 H Plt Count 46 L Anion Gap 5 L BUN 22.5 H Creatinine 1.6 H Total Bilirubin 2.2 H AST 46 H Ammonia 111.40 H Albumin 2.3 L HDL Cholesterol 27 L monitor trends Code(s): N18.9 - CHRONIC KIDNEY DISEASE, UNSPECIFIED (5) HTN (hypertension) Assessment/Plan: Vital Signs Period Temp Pulse Resp BP Sys/Patel Pulse Ox Last 24 Hr 97.6 F-98.3 F 66-86 18-20 97-102/53-62 96-99 ivf monitor off meds Code(s): I10 - ESSENTIAL (PRIMARY) HYPERTENSION (6) CVA (cerebral vascular accident) Assessment/Plan: as above asa /plavix/statin Code(s): I63.9 - CEREBRAL INFARCTION, UNSPECIFIED (7) Fever Assessment/Plan: CT results noted and discussed with id,gi and pt id following abx per id Microbiology 04/22/20 19:30 Blood - Peripheral Venous Blood Culture - Preliminary NO GROWTH OBTAINED AFTER 24 HOURS, INCUBATION TO CONTINUE FOR 4 DAYS. 04/22/20 17:00 Blood - Peripheral Venous Blood Culture - Preliminary NO GROWTH OBTAINED AFTER 24 HOURS, INCUBATION TO CONTINUE FOR 4 DAYS. 04/21/20 18:20 Urine - Urine - Catheterized Urine Culture - Final Lactose Fermenting Neg Bacilli Code(s): R50.9 - FEVER, UNSPECIFIED (8) Mass of colon Assessment/Plan: GI CONSULT work up per GI colonoscopy discussed with pt and states to call her son in am Code(s): K63.89 - OTHER SPECIFIED DISEASES OF INTESTINE (9) Ascites Assessment/Plan: on lactulose gi on case Code(s): R18.8 - OTHER ASCITES Qualifiers: Ascites type: other type Qualified Code(s): R18.8 - Other ascites (10) Thrombocytopenia Assessment/Plan: monitor on asa and plavix Code(s): D69.6 - THROMBOCYTOPENIA, UNSPECIFIED
--- NOTE | 2020-04-28 17:06 | PN ---
Progress Note, Physician Chief Complaint: CVA History of Present Illness: Events noted and the chart reviewed Alert awake OOB to chair No new neuro events On and Plavix Noted the slight worsening of the low platelet Noted the GI input Colon mass - Current Medication List Current Medications: Active Medications Acetaminophen (Tylenol -) 650 mg PO Q6H PRN PRN Reason: FEVER Last Admin: 04/26/20 00:16 Dose: 650 mg Documented by: Aspirin (Asa -) 81 mg PO DAILY [facility] Last Admin: 04/28/20 10:09 Dose: 81 mg Documented by: Atorvastatin Calcium (Lipitor -) 10 mg PO HS [facility] Last Admin: 04/27/20 21:40 Dose: 10 mg Documented by: Clopidogrel Bisulfate (Plavix -) 75 mg PO DAILY [facility] Last Admin: 04/28/20 10:09 Dose: 75 mg Documented by: Lactulose (Cephulac (Oral Use)) 20 gm PO TID [facility] Last Admin: 04/28/20 05:22 Dose: Not Given Documented by: Pantoprazole Sodium (Protonix -) 40 mg PO DAILY [facility] Last Admin: 04/28/20 10:09 Dose: 40 mg Documented by: - Objective Vital Signs: Vital Signs Temperature 98.1 F 04/28/20 14:06 Pulse Rate 92 H 04/28/20 14:06 Respiratory Rate 18 04/28/20 14:06 Blood Pressure 102/61 04/28/20 14:06 O2 Sat by Pulse Oximetry (%) 100 04/28/20 09:31 Constitutional: Yes: Well Nourished Neurological: Yes: Alert, Oriented, Babinski negative, Cran Nerves II-XII Intact ...Motor Strength: WNL Labs: CBC, BMP 04/24/20 12:02 04/24/20 12:02 Problem List - Problems (1) Atypical syncope Code(s): R55 - SYNCOPE AND COLLAPSE (2) Altered mental status Code(s): R41.82 - ALTERED MENTAL STATUS, UNSPECIFIED Qualifiers: Altered mental status type: unspecified Qualified Code(s): R41.82 - Altered mental status, unspecified Assessment/Plan Plan 1. Stop the ASA and Plavix 2. Aggrenox bid 3. Daily CBC 4. Four units of platelets 5. Continue dalila SQ Heparin Will monitor closely with GI
[2020-04-28] MEDS: ATORVASTATIN CA 10 MG TABLET (FP) PO SCH (21:26)
[2020-04-28] MEDS: ASPIRIN/DIPYRIDAMOLE 25 MG/200 MG CAPSULE PO SCH (21:26)
[2020-04-29] MEDS ORDERED: ONDANSETRON 4 MG/2 ML VIAL IVPUSH ONE (00:15)
--- NOTE | 2020-04-29 03:13 | PN ---
Progress Note (short form) - Note Progress Note: Episodic Note 04/29/2020 @ 2am Nurse called patient c/o chest pain. EKG was done. Patient was seen and examined at bedside. She reports she has chest pain for 1 hour. She denied n/v/SOB/or radiation of chest to left arm, jaw or neck. She is nondyspneic. BP is 94/48 and pulse 90 and oxygen saturation 99% on RA. EKG reviewed showing a normal sinus rhythm and no signs of acute ischemia. Troponin was checked and was normal. D-Dimer resulted at 8503. She has no evidnce of shortness of breath, tachycardia or hypoxia. Creatinine noted to be 1.6. Will check CTA of chest to exclude PE in the setting of active chest pain. Visit type - Emergency Visit Emergency Visit: Yes ED Registration Date: 04/19/20 Care time: The patient presented to the Emergency Department on the above date and was hospitalized for further evaluation of their emergent condition. - New Patient This patient is new to me today: Yes Date on this admission: 04/29/20 - Critical Care Critical Care patient: No - Medication Review Med list reviewed for High Risk Meds patients 65 and older: No
[2020-04-29] MEDS: ACETAMINOPHEN 325 MG TABLET (FP) PO PRN ×2 (04:14→17:09)
[2020-04-29] MEDS: LACTULOSE 20 GM/30 ML UDC (FOR ORAL USE ONLY) PO SCH ×3 (05:33→23:01)
[2020-04-29] MEDS: PANTOPRAZOLE 40 MG TABLET PO SCH (09:58)
[2020-04-29] MEDS: ASPIRIN/DIPYRIDAMOLE 25 MG/200 MG CAPSULE PO SCH ×2 (09:58→22:57)
--- NOTE | 2020-04-29 10:53 | EKG ---
Test Reason : Blood Pressure : / mmHG Vent. Rate : 084 BPM Atrial Rate : 084 BPM P-R Int : 202 ms QRS Dur : 078 ms QT Int : 396 ms P-R-T Axes : 029 -04 028 degrees QTc Int : 467 ms NORMAL SINUS RHYTHM NORMAL ECG WHEN COMPARED WITH ECG OF 22-APR-2020 17:39, NO SIGNIFICANT CHANGE WAS FOUND Confirmed by Jose Koch MD ([id number]) on 04/29/2020 10:52:23 AM Referred By: Confirmed By:Jose Koch MD
--- NOTE | 2020-04-29 14:40 | PN ---
Progress Note, Physician Chief Complaint: Syncope Colonic mass CKD Anemia Liver cirrhosis History of Present Illness: 74 y.o. F w/ PMHx. of Cirrhosis(KING w/ ascites and Hx. of HE), HFpEF, Afib(was on reduced dose Eliquis), CKD (Stage 3), Venous insufficiency, HTN, anemia, and thrombocytopenia. presents via EMS with AMS. ems reports she was found on the floor by her son. pt is not aware of how sequenc of events happened and only remembers being on the ambulance. She is able to recall that she takes blood pressure medication and lactulose on a daily basis.She denies headache, chest pain, SOB, abdominal pain, she is alert and oriented to person and place. NAD Had epigastric pain last night, EKG was normal Denies any Chest pain at the moment discomfort on palpation of epigastric region - Current Medication List Current Medications: Active Medications Acetaminophen (Tylenol -) 650 mg PO Q6H PRN PRN Reason: FEVER Last Admin: 04/29/20 04:14 Dose: 650 mg Documented by: Atorvastatin Calcium (Lipitor -) 10 mg PO HS [facility] Last Admin: 04/28/20 21:26 Dose: 10 mg Documented by: Dipyridamole/Aspirin (Aggrenox -) 1 combo PO BID [facility] Last Admin: 04/29/20 09:58 Dose: 1 combo Documented by: Lactulose (Cephulac (Oral Use)) 20 gm PO TID [facility] Last Admin: 04/29/20 05:33 Dose: Not Given Documented by: Pantoprazole Sodium (Protonix -) 40 mg PO DAILY [facility] Last Admin: 04/29/20 09:58 Dose: 40 mg Documented by: - Objective Vital Signs: Vital Signs Temperature 97.9 F 04/29/20 13:48 Pulse Rate 78 04/29/20 13:48 Respiratory Rate 18 04/29/20 13:48 Blood Pressure 88/53 L 04/29/20 13:48 O2 Sat by Pulse Oximetry (%) 98 04/29/20 10:00 Constitutional: Yes: No Distress, Calm, Obese Cardiovascular: Yes: Regular Rate and Rhythm Respiratory: Yes: Regular, CTA Bilaterally Gastrointestinal: Yes: Normal Bowel Sounds, Soft, Abdomen, Obese Genitourinary: Yes: Incontinence Musculoskeletal: Yes: Muscle Weakness Extremities: Yes: WNL Edema: Yes Edema: LLE: Trace, RLE: Trace Peripheral Pulses WNL: Yes Neurological: Yes: Alert, Oriented Psychiatric: Yes: Alert, Oriented Labs: CBC, BMP 04/24/20 12:02 04/24/20 12:02 Problem List - Problems (1) Mass of colon Assessment/Plan: -CTAP:In the included lower lung moderate COPD changes are present. The heart is within normal limits in size. The liver is small with a lung nodule or contour again suggestive of cirrhosis without gross evidence of a hepatic lesion. The spleen is slightly enlarged measuring 12.5 cm in craniocaudal length. Partially distended gallbladder with suggestion of small stones layering posteriorly. The pancreas, both adrenal glands and both kidneys appear grossly unremarkable. Moderate amount of free fluid/ascites is present. Partially distended stomach without wall thickening. There is no evidence of small bowel obstruction There is a short segment of significant wall thickening and narrowing of the lumen in the distal portion of the ascending colon measuring approximately 3.7 cm in length suggestive of a mass. There is significant thickening of the descending colon wall suggestive of colitis. Partially distended urinary bladder with intraluminal air pockets that may be iatrogenic. Visualized osseous structures appear grossly intact -Seen by GI -Would need EGD for biopsy -Cardiac clearance -Oncology consult -Will need to hold aggrenox for 5 days prior to procedure -Would also need Plt transfusions prior to procedure -Spoke to son Oscar and patient, who wants cardiology clearance done first before deciding to proceed with the procedure. He will also discuss the recommendations again with his mother. Problems reviewed: Yes Code(s): K63.89 - OTHER SPECIFIED DISEASES OF INTESTINE (2) Syncope Assessment/Plan: -Likely 2/2 to orthostatic hypotension Problems reviewed: Yes Code(s): R55 - SYNCOPE AND COLLAPSE Qualifiers: Syncope type: unspecified Qualified Code(s): R55 - Syncope and collapse (3) Afib Assessment/Plan: -AC was stopped last admission 2/2 to vaginal bleed -Chronic, Rate controlled Problems reviewed: Yes Code(s): I48.91 - UNSPECIFIED ATRIAL FIBRILLATION (4) Cryptogenic cirrhosis Assessment/Plan: -Restart Rifaximin -Continue lactulose -Restart spironolactone + furosemide on nephrology discretion Problems reviewed: Yes Code(s): K74.69 - OTHER CIRRHOSIS OF LIVER (5) Atypical chest pain Assessment/Plan: -Resolved -EKG normal -Trops negative -cardiology on board -Likely 2/2 to acid reflux, will try one dose of mylanta Problems reviewed: Yes Code(s): R07.89 - OTHER CHEST PAIN (6) Thrombocytopenia Assessment/Plan: -Chronic -2/2 to chronic liver dz -monitor trend Problems reviewed: Yes Code(s): D69.6 - THROMBOCYTOPENIA, UNSPECIFIED Assessment/Plan See problem list
--- NOTE | 2020-04-29 15:37 | CONSULT ---
Consult Consult Specialty:: Nephrology Reason for Consultation:: ckd - History of Present Illness Chief Complaint: initially presented with altered mental status History of Present Illness: Pt is a 74 year old female with pmhx of ckd, liver cirrhosis, chf, a-fib, ckd, htn, anemia and thrombocytopenia who initially presented after being found on the floor. 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 SHe has ckd. Her renal function is at baseline. She feels that her lower ext edema is markedly improved. She is unsure if she is still taking her diuretics. She denies nsaid use. she did have an episiode of chest pain last night. - History Source History Provided By: Patient - Past Medical History RECHECKER: Yes: Other Cardio/Vascular: Yes: AFIB (paroxysmal NADIA), CHF, HTN, Other Gastrointestinal: Yes: Ascites Hepatobiliary: Yes: Cirrhosis (likely due to KING with ascites and hepatic encephalopathy) Renal/: Yes: Renal Inusuff ...: No Infectious Disease: Yes: Other (Strep mitis bacteremia) - Past Surgical History Past Surgical History: Yes: None - Alcohol/Substance Use Hx Alcohol Use: No History of Substance Use: reports: None - Smoking History Smoking history: Never smoked Have you smoked in the past 12 months: No Aproximately how many cigarettes per day: 0 - Social History Usual Living Arrangement: [facility] 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 ([employer]) 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 History of Recent Travel: No Home Medications - Allergies Allergies/Adverse Reactions: Allergies Allergy/AdvReac Type Severity Reaction Status Date / Time No Known Allergies Allergy Verified 03/02/20 12:42 - Home Medications Home Medications: Ambulatory Orders Furosemide 40 mg PO BID 04/19/20 Lactulose (Oral Use) [Cephulac -] 20 gm PO QID 04/19/20 Metoprolol Tartrate 25 mg PO DAILY 04/19/20 Rifaximin [Xifaxan] 550 mg PO DAILY 04/19/20 Spironolactone 100 mg PO DAILY 04/19/20 Family Medical History Family History: Unable to Obtain Family Hx Cardiac Disorders: Father ( of [place] age 73) Review of Systems - Review of Systems Constitutional: reports: Loss of Appetite, Weakness Eyes: reports: No Symptoms HENT: reports: No Symptoms Neck: reports: No Symptoms Cardiovascular: reports: No Symptoms Respiratory: reports: No Symptoms Gastrointestinal: reports: No Symptoms Genitourinary: reports: No Symptoms Musculoskeletal: reports: No Symptoms Integumentary: reports: No Symptoms Neurological: reports: No Symptoms Endocrine: reports: No Symptoms Hematology/Lymphatic: reports: No Symptoms Psychiatric: reports: No Symptoms Physical Exam Vital Signs: Vital Signs Temperature 97.9 F 04/29/20 13:48 Pulse Rate 78 04/29/20 13:48 Respiratory Rate 18 04/29/20 13:48 Blood Pressure 88/53 L 04/29/20 13:48 O2 Sat by Pulse Oximetry (%) 98 04/29/20 10:00 Constitutional: Yes: Calm Eyes: Yes: Conjunctiva Clear HENT: Yes: Atraumatic Cardiovascular: Yes: S1, S2 Respiratory: Yes: CTA Bilaterally Gastrointestinal: Yes: Soft, Abdomen, Obese Renal/: Yes: WNL Musculoskeletal: Yes: WNL Edema: Yes Edema: LLE: 1+, RLE: 1+ Neurological: Yes: Oriented Psychiatric: Yes: Oriented Labs: CBC, BMP 04/24/20 12:02 04/24/20 12:02 Imaging - Results Cat Scan: Report Reviewed Problem List - Problems (1) Altered mental status Code(s): R41.82 - ALTERED MENTAL STATUS, UNSPECIFIED Qualifiers: Altered mental status type: unspecified Qualified Code(s): R41.82 - Altered mental status, unspecified (2) Atypical syncope Code(s): R55 - SYNCOPE AND COLLAPSE (3) CHF (congestive heart failure) Code(s): I50.9 - HEART FAILURE, UNSPECIFIED Qualifiers: Heart failure type: unspecified Heart failure chronicity: unspecified Qualified Code(s): I50.9 - Heart failure, unspecified (4) CKD (chronic kidney disease) Code(s): N18.9 - CHRONIC KIDNEY DISEASE, UNSPECIFIED (5) Chronic liver disease and cirrhosis Code(s): K74.60 - UNSPECIFIED CIRRHOSIS OF LIVER; K76.9 - LIVER DISEASE, UNSPECIFIED Assessment/Plan Current Medications Generic Name Dose Route Start Last Admin Trade Name Freq PRN Reason Stop Dose Admin Acetaminophen 650 mg 04/20/20 12:24 04/29/20 04:14 Tylenol - PO 650 mg Q6H PRN Administration FEVER Atorvastatin Calcium 10 mg 04/22/20 22:00 04/28/20 21:26 Lipitor - PO 10 mg HS TAMMY Administration Dipyridamole/Aspirin 1 combo 04/28/20 22:00 04/29/20 09:58 Aggrenox - PO 1 combo BID TAMMY Administration Lactulose 20 gm 04/22/20 14:00 04/29/20 14:50 Cephulac (Oral Use) PO Not Given TID TAMMY Pantoprazole Sodium 40 mg 04/27/20 10:45 04/29/20 09:58 Protonix - PO 40 mg DAILY TAMMY Administration Impression 1. CKD 2. ascites 3. liver cirrhosis 4. mass like lesion suspicious for cancer in ascending colon 5. microscopic hematuria 6. hld 7. altered mental status Plan - renal function at baseline - lasix and aldactone held due to hypotension - repeat labs in am - am cxr - will start re-introducing diuretics once stable - GI follow up for lesion on ct scan
[2020-04-29] MEDS ORDERED: MAG HYDROX/AL HYDROX/SIMETH 30 ML UNIT-DOSE CUP PO ONE (15:56)
--- NOTE | 2020-04-29 16:20 | PN ---
Progress Note, Physician History of Present Illness: pt seen and examined today in nad. episode of chest pain last night. has not recurred. no current complaints. - Current Medication List Current Medications: Active Medications Acetaminophen (Tylenol -) 650 mg PO Q6H PRN PRN Reason: FEVER Last Admin: 04/29/20 04:14 Dose: 650 mg Documented by: Al Hydroxide/Mg Hydroxide (Mylanta Oral Suspension -) 30 ml PO Q6H PRN PRN Reason: DYSPEPSIA Al Hydroxide/Mg Hydroxide (Mylanta Suspension -) 30 ml PO ONCE ONE Stop: 04/29/20 15:57 Atorvastatin Calcium (Lipitor -) 10 mg PO HS [facility] BEDS AT [facility] Last Admin: 04/28/20 21:26 Dose: 10 mg Documented by: Dipyridamole/Aspirin (Aggrenox -) 1 combo PO BID [facility]S AT [facility] Last Admin: 04/29/20 09:58 Dose: 1 combo Documented by: Lactulose (Cephulac (Oral Use)) 20 gm PO TID [facility] 234 BEDS AT [facility] Last Admin: 04/29/20 14:50 Dose: Not Given Documented by: Pantoprazole Sodium (Protonix -) 40 mg PO DAILY [facility] 234 BEDS AT [facility] Last Admin: 04/29/20 09:58 Dose: 40 mg Documented by: Rifaximin (Xifaxan -) 550 mg PO BID [facility] 234 BEDS AT THE [facility] - Objective Vital Signs: Vital Signs Temperature 97.9 F 04/29/20 13:48 Pulse Rate 78 04/29/20 13:48 Respiratory Rate 18 04/29/20 13:48 Blood Pressure 88/53 L 04/29/20 13:48 O2 Sat by Pulse Oximetry (%) 98 04/29/20 10:00 Constitutional: Yes: No Distress, Calm Eyes: Yes: Conjunctiva Clear, EOM Intact HENT: Yes: Atraumatic, Normocephalic Neck: Yes: Supple, Trachea Midline Cardiovascular: Yes: Pulse Irregular, S1, S2. No: Regular Rate and Rhythm, Bradycardia, Tachycardia, Bruit, JVD, Gallop, Murmur, Rub, S3, S4, Varicosities Respiratory: Yes: Regular. No: Rales, Rhonchi, SOB, Wheezes Gastrointestinal: Yes: Normal Bowel Sounds Edema: Yes Edema: LLE: Trace, RLE: Trace Peripheral Pulses WNL: Yes Neurological: Yes: Alert, Oriented Psychiatric: Yes: Alert, Oriented Labs: CBC, BMP 04/24/20 12:02 04/24/20 12:02 - ....Imaging Chest X-ray: Report Reviewed, Image Reviewed EKG: Report Reviewed, Image Reviewed Other: Report Reviewed, Image Reviewed Assessment/Plan 74 year-old woman with a PMHx of HTN, chronic diastolic CHF, paroxysmal atrial fibrillation on Eliquis, liver cirrhosis (KING w/ ascites, CKD (Stage 3), venous insufficiency, partial venous thrombosis, anemia, and thrombocytopenia brought to ED 04/19/20 via EMS with altered mental status and syncope. EMS reported she was found on the floor by her son. She was not aware of the events and only remembers being on the ambulance. ECG 04/19/20: Sinus rhythm at 60 BPM. Normal axis. Early repolarization. Echo 03/12/2020: Normal LV size, wall motion and systolic function. LVEF = 70%. Normal RV size and function. Moderate LA dilatation and normal RA in size. Severe MAC with functional mitral stenosis. FCAV with mild . DAVID = 1.7 cm2. Preop cardiac evaluation for endoscopy -No evidence of ACS on this admission -episode of atypical chest pain last night with no ischemia on ekg and cardiac enzymes wnl -pt is a high risk patient given cirrhosis, CVA, HTN planned for a low/intermediate risk procedure -recent echo as above showed normal LVEF with only mild valvular abnormalities -planned for EGD to evaluate for esophageal varices and possible colonoscopy to evaluate mass -at this time there is no cardiac contraindication to the planned procedures. No additional preoperative cardiac testing is needed at this time.
--- NOTE | 2020-04-29 17:33 | CONSULT ---
Consultation: Heme Onc Resident note REQUESTING PROVIDER: Dr. Carson CONSULT REQUEST: We have been asked to medically evaluate this patient for colonic mass. HISTORY OF PRESENT ILLNESS: Patient is a 74 year old woman with past medical history of dementia, HTN, chronic diastolic CHF, paroxysmal atrial fibrillation (on eliquis), liver cirrhosis (KING with ascites), CKD st 3, venous insufficiency, partial venous thrombosis, anemia and thrombocytopenia, presented to the ED with altered mental status and syncope. Patient unable to recall the events. Patient was evaluated by neurology and cardiology. Brain MRI was done which revealed an acute right temporal cortical infarct. She was then started on ASA and plavix. Patient also developed fevers during her hospital course, where she was started on Meropenem for hx of ESBL in urine. CT abdomen was done and revealed a circumferential mass lesion in the distal portion of the ascending colon with an apple core appearance that is highly suspicious for colon tumor. We were consulted for further evaluation of the colonic mass. Of note, patient reported she had colonoscopy a few years ago that was noted to be normal. She also had abdominal CT 3 months ago, and no colonic mass was noted. Patient denies any fevers, chills, headache, dizziness chest pain, shortness of breath, abdominal pain, melena or blood stools, urinary symptoms. PMHx: dementia, HTN, chronic diastolic CHF, paroxysmal atrial fibrillation (on eliquis), liver cirrhosis (KING with ascites), CKD st 3, venous insufficiency, partial venous thrombosis, anemia and thrombocytopenia PSHx: none Allergies: NKDA SHx: previous smoker, denies etoh use, denies illicit drug use From [facility] REVIEW OF SYSTEMS: CONSTITUTIONAL: Absent: fever, chills, diaphoresis, generalized weakness, malaise, loss of appetite, weight change HEENT: Absent: rhinorrhea, nasal congestion, throat pain, throat swelling, difficulty swallowing, mouth swelling, ear pain, eye pain, visual changes CARDIOVASCULAR: Absent: chest pain, syncope, palpitations, irregular heart rate, lightheadedness, peripheral edema RESPIRATORY: Absent: cough, shortness of breath, dyspnea with exertion, orthopnea, wheezing, stridor, hemoptysis GASTROINTESTINAL: Absent: abdominal pain, abdominal distension, nausea, vomiting, diarrhea, constipation, melena, hematochezia GENITOURINARY: Absent: dysuria, frequency, urgency, hesitancy, hematuria, flank pain, genital pain MUSCULOSKELETAL: Absent: myalgia, arthralgia, joint swelling, back pain, neck pain SKIN: Absent: rash, itching, pallor HEMATOLOGIC/IMMUNOLOGIC: Absent: easy bleeding, easy bruising, lymphadenopathy, frequent infections ENDOCRINE: Absent: unexplained weight gain, unexplained weight loss, heat intolerance, cold intolerance NEUROLOGIC: Absent: headache, focal weakness or paresthesias, dizziness, unsteady gait, seizure, mental status changes, bladder or bowel incontinence PSYCHIATRIC: Absent: anxiety, depression, suicidal or homicidal ideation, hallucinations. PHYSICAL EXAMINATION Vital Signs - 24 hr 04/28/20 04/28/20 04/29/20 17:51 21:00 01:00 Temperature 98.2 F 98.3 F 98.2 F Pulse Rate 87 83 90 Respiratory 18 18 18 Rate Blood Pressure 97/50 L 90/45 L 94/48 L O2 Sat by Pulse 98 98 99 Oximetry (%) 04/29/20 04/29/20 04/29/20 05:00 09:00 10:00 Temperature 97.2 F L 98.2 F Pulse Rate 75 81 Respiratory 18 18 Rate Blood Pressure 95/36 L 84/46 L O2 Sat by Pulse 99 98 98 Oximetry (%) 04/29/20 13:48 Temperature 97.9 F Pulse Rate 78 Respiratory 18 Rate Blood Pressure 88/53 L O2 Sat by Pulse Oximetry (%) GENERAL: Awake, alert, and fully oriented, in no acute distress. HEAD: Normal with no signs of trauma. EYES: PERRLA, EOMI, sclera anicteric, conjunctiva clear. EARS, NOSE, THROAT: Dry mucous membranes. NECK: Normal range of motion, supple LUNGS: decreased breath sounds on bilateral bases HEART: Regular rate and rhythm, normal S1 and S2 ABDOMEN: Soft, nontender, normoactive bowel sounds LOWER EXTREMITIES: 2+ pulses, warm, well-perfused. No peripheral edema. NEUROLOGICAL: No focal deficits, Normal speech. PSYCHIATRIC: Cooperative. Good eye contact. SKIN: Warm, dry, normal turgor Laboratory Results - last 24 hr 04/29/20 04/29/20 01:30 01:30 D-Dimer 8503 H Troponin I < 0.02 Active Medications Generic Name Dose Route Start Last Admin Trade Name Freq PRN Reason Stop Dose Admin Acetaminophen 650 mg 04/20/20 12:24 04/29/20 04:14 Tylenol - PO 650 mg Q6H PRN Administration FEVER Al Hydroxide/Mg Hydroxide 30 ml 04/29/20 21:00 Mylanta Oral Suspension - PO Q6H PRN DYSPEPSIA Atorvastatin Calcium 10 mg 04/22/20 22:00 04/28/20 21:26 Lipitor - PO 10 mg HS TAMMY Administration Dipyridamole/Aspirin 1 combo 04/28/20 22:00 04/29/20 09:58 Aggrenox - PO 1 combo BID TAMMY Administration Lactulose 20 gm 04/22/20 14:00 04/29/20 14:50 Cephulac (Oral Use) PO Not Given TID T[facility]MY Pantoprazole Sodium 40 mg 04/27/20 10:45 04/29/20 09:58 Protonix - PO 40 mg DAILY TAMMY Administration Rifaximin 550 mg 04/29/20 22:00 Xifaxan - PO BID [facility] ASSESSMENT/PLAN: Patient is a 74 year old woman with past medical history of dementia, HTN, chronic diastolic CHF, paroxysmal atrial fibrillation (on eliquis), liver cirrhosis (KING with ascites), CKD st 3, venous insufficiency, partial venous thrombosis, anemia and thrombocytopenia, presented to the ED with altered mental status and syncope. We were called for further evaluation of colonic mass. #Colon mass -CT abdomen was done and revealed a circumferential mass lesion in the distal portion of the ascending colon with an apple core appearance that is highly suspicious for colon tumor. -would await further work up per GI -Plan for EGD/colonoscopy with biopsy of mass pending neuro/cardio clearance as patient is high risk #Thrombocytopenia -likely 2/2 liver cirrhosis -was on ASA and plavix for new CVA, now discontinued -Aggrenox bid as per neuro, hold if planning to do endoscopies -would monitor cbc, keep platelet count >50k if plan to do EGD/colonoscopy Dispo: We will continue to follow the patient. Thank you for this consultative opportunity. Visit type - Medication Review Med list reviewed for High Risk Meds patients 65 and older: Yes - Emergency Visit Emergency Visit: Yes ED Registration Date: 04/19/20 Care time: The patient presented to the Emergency Department on the above date and was hospitalized for further evaluation of their emergent condition. - New Patient This patient is new to me today: Yes Date on this admission: 04/29/20 - Critical Care Critical Care patient: No ATTENDING PHYSICIAN STATEMENT I saw and evaluated the patient. I reviewed the resident's note and discussed the case with the resident. I agree with the resident's findings and plan as documented. SUBJECTIVE: OBJECTIVE: ASSESSMENT AND PLAN:
--- NOTE | 2020-04-29 17:52 | PN ---
Teaching Attending Note Name of Resident: Sandra Rodgers ATTENDING PHYSICIAN STATEMENT I saw and evaluated the patient. I reviewed the resident's note and discussed the case with the resident. I agree with the resident's findings and plan as documented. SUBJECTIVE: Mild abdominal pain ASSESSMENT AND PLAN: 74 year old lady with past medical history of dementia, HTN, chronic diastolic CHF, paroxysmal atrial fibrillation (on eliquis), liver cirrhosis (KING with ascites), CKD st 3, venous insufficiency, partial venous thrombosis, anemia and thrombocytopenia, presented to the ED with altered mental status and syncope. We were called for further evaluation of colonic mass. Plan: 1) Colonic mass. If pt agreable please perform colonoscopy. 2) Aggrenox BID per neuro but if biopsy planned please hold. 3) Rest per Dr. Rodgers note 4) Thank you for this consultation
[2020-04-29] MEDS ORDERED: PT OWN MED DRAWER 7, Y5N ONE ×2 (18:26→21:00)
[2020-04-29] MEDS: RIFAXIMIN 550 MG TABLET (UD) PO SCH (22:57)
[2020-04-29] MEDS: ATORVASTATIN CA 10 MG TABLET (FP) PO SCH (22:57)
[2020-04-30] MEDS: LACTULOSE 20 GM/30 ML UDC (FOR ORAL USE ONLY) PO SCH ×3 (06:41→22:08)
--- NOTE | 2020-04-30 11:02 | PN ---
Progress Note, Physician Chief Complaint: Syncope Colonic mass CKD Anemia Liver cirrhosis History of Present Illness: 74 y.o. F w/ PMHx. of Cirrhosis(KING w/ ascites and Hx. of HE), HFpEF, Afib(was on reduced dose Eliquis), CKD (Stage 3), Venous insufficiency, HTN, anemia, and thrombocytopenia. presents via EMS with AMS. ems reports she was found on the floor by her son. pt is not aware of how sequenc of events happened and only remembers being on the ambulance. She is able to recall that she takes blood pressure medication and lactulose on a daily basis.She denies headache, chest pain, SOB, abdominal pain, she is alert and oriented to person and place. NAD, sitting in a chair Spoke to son, who wants to take Milicent to his own Lease Purchase Truck Driver, but is unable to pick his mother up from hospital until tuesday morning. - Current Medication List Current Medications: Active Medications Acetaminophen (Tylenol -) 650 mg PO Q6H PRN PRN Reason: FEVER Last Admin: 04/29/20 17:09 Dose: 650 mg Documented by: Al Hydroxide/Mg Hydroxide (Mylanta Oral Suspension -) 30 ml PO Q6H PRN PRN Reason: DYSPEPSIA Atorvastatin Calcium (Lipitor -) [address] [facility] Last Admin: 04/29/20 22:57 Dose: 10 mg Documented by: Dipyridamole/Aspirin (Aggrenox -) [address] [facility] Last Admin: 04/29/20 22:57 Dose: 1 combo Documented by: Lactulose (Cephulac (Oral Use)) [address] [facility] Last Admin: 04/30/20 06:41 Dose: Not Given Documented by: Pantoprazole Sodium (Protonix -) [address] [facility] Last Admin: 04/29/20 09:58 Dose: 40 mg Documented by: Rifaximin (Xifaxan -) [address] [facility] Last Admin: 04/29/20 22:57 Dose: 550 mg Documented by: - Objective Vital Signs: Vital Signs Temperature 98.2 F 04/30/20 05:00 Pulse Rate 90 04/30/20 05:00 Respiratory Rate 18 04/30/20 05:00 Blood Pressure 92/52 L 04/30/20 05:00 O2 Sat by Pulse Oximetry (%) 98 04/30/20 05:00 Constitutional: Yes: Well Nourished, No Distress, Calm, Obese Cardiovascular: Yes: Regular Rate and Rhythm Respiratory: Yes: Regular, CTA Bilaterally Gastrointestinal: Yes: Normal Bowel Sounds, Soft, Abdomen, Obese Genitourinary: Yes: Incontinence Musculoskeletal: Yes: Muscle Weakness Extremities: Yes: WNL Edema: Yes Edema: LLE: Trace, RLE: Trace Peripheral Pulses WNL: Yes Neurological: Yes: Alert, Oriented Psychiatric: Yes: Alert, Oriented Problem List - Problems (1) Mass of colon Assessment/Plan: -CTAP:In the included lower lung moderate COPD changes are present. The heart is within normal limits in size. The liver is small with a lung nodule or contour again suggestive of cirrhosis without gross evidence of a hepatic lesion. The s pleen is slightly enlarged measuring 12.5 cm in craniocaudal length. Partially distended gallbladder with suggestion of small stones layering posteriorly. The pancreas, both adrenal glands and both kidneys appear grossly unremarkable. Moderate amount of free fluid/ascites is present. Partially distended stomach without wall thickening. There is no evidence of small bowel obstruction There is a short segment of significant wall thickening and narrowing of the lumen in the distal portion of the ascending colon measuring approximately 3.7 cm in length suggestive of a mass. There is significant thickening of the descending colon wall suggestive of colitis. Partially distended urinary bladder with intraluminal air pockets that may be iatrogenic. Visualized osseous structures appear grossly intact -Seen by GI -Would need EGD for biopsy -Cardiac clearance -Oncology consult -Will need to hold aggrenox for 5 days prior to procedure -Would also need Plt transfusions prior to procedure -Spoke to son Oscar, who will be taking his mother to his own laboratory engineer in [place]. Will chicken picker pt on Tuesday. Problems reviewed: Yes Code(s): K63.89 - OTHER SPECIFIED DISEASES OF INTESTINE (2) Syncope Assessment/Plan: -Seen by Neurology -CVA as per neurology Problems reviewed: Yes Code(s): R55 - SYNCOPE AND COLLAPSE Qualifiers: Syncope type: unspecified Qualified Code(s): R55 - Syncope and collapse (3) Afib Assessment/Plan: -AC was stopped last admission 2/2 to vaginal bleed -Chronic, Rate controlled Problems reviewed: Yes Code(s): I48.91 - UNSPECIFIED ATRIAL FIBRILLATION (4) Cryptogenic cirrhosis Assessment/Plan: -Restart Rifaximin -Continue lactulose -Restart spironolactone + furosemide on nephrology discretion Problems reviewed: Yes Code(s): K74.69 - OTHER CIRRHOSIS OF LIVER (5) Atypical chest pain Assessment/Plan: -Resolved -EKG normal -Trops negative -cardiology on board -Likely 2/2 to acid reflux, will try one dose of mylanta Problems reviewed: Yes Code(s): R07.89 - OTHER CHEST PAIN (6) Thrombocytopenia Assessment/Plan: -Chronic -2/2 to chronic liver dz -monitor trend Problems reviewed: Yes Code(s): D69.6 - THROMBOCYTOPENIA, UNSPECIFIED Assessment/Plan See problem list
[2020-04-30 11:03] LABS: BASO % 0.5 % (0-2.0); HEMATOCRIT 27.5 % (32.4-45.2); HEMOGLOBIN 9.1 GM/dL (10.7-15.3); LYMPH % 14.5 % (8-40); MCHC 33.1 g/dl (32.0-36.0); MEAN CELL VOLUME 90.7 fl (80-96); MEAN PLT VOLUME 9.5 fl (7.5-11.1); MONO % 14.3 % (3.8-10.2); NEUT % 67.7 % (42.8-82.8); PLATELET COUNT 62 K/MM3 (134-434); RBC 3.03 M/mm3 (3.60-5.2); RDW 17.1 % (11.6-15.6); WHITE BLOOD COUNT 7.3 K/mm3 (4.0-10.0)
[2020-04-30] MEDS ORDERED: PT OWN MED DRAWER 7, Y5N ONE ×4 (11:04→20:53)
[2020-04-30] MEDS: PANTOPRAZOLE 40 MG TABLET PO SCH (11:06)
[2020-04-30] MEDS: RIFAXIMIN 550 MG TABLET (UD) PO SCH ×2 (11:06→22:08)
[2020-04-30] MEDS: ASPIRIN/DIPYRIDAMOLE 25 MG/200 MG CAPSULE PO SCH ×2 (11:06→22:08)
[2020-04-30] MEDS: MAG HYDROX/AL HYDROX/SIMETH 30 ML UNIT-DOSE CUP PO PRN (11:06)
[2020-04-30 11:51] LABS: ALBUMIN 1.9 g/dl (3.4-5.0); BILIRUBIN,TOTAL 1.7 mg/dL (0.2-1); BLOOD UREA NITROGEN 28.8 mg/dL (7-18); CALCIUM 8.6 mg/dL (8.5-10.1); CREATININE 1.6 mg/dL (0.55-1.3); POTASSIUM 5.8 mmol/L (3.5-5.1); TOT PROT 6.1 g/dl (6.4-8.2)
--- NOTE | 2020-04-30 12:42 | PN.GI ---
GI Progress Note Subjective: GI NOte: I communicated with Dr Prince yesterday regarding he safety of MAC anesthesia dn A/C interruption for colonoscopy and he responded that this should be deferred for 2 weeks. When I informed Maya of this today she asked that I call her son Oscar which I did and shared this information. He asked whether a CVA had been confirmed. I replied that I did not have a formal confirmation of this form Dr Prince but have communicated to Dr Prince call Oscar and clarify this. Oscar did tell me that he does not want his mother to have her colonoscopy here and intends to bring her to his intensive care unit registered nurse. I informed Kelsie Montero NP of these conversations and Oscar's expressed intentions. Maya told me that she will do whatever her son Oscar has decided for her. - Objective Vital Signs: Vital Signs Temperature 98.2 F 04/30/20 09:00 Pulse Rate 86 04/30/20 09:00 Respiratory Rate 18 04/30/20 09:00 Blood Pressure 98/50 L 04/30/20 09:00 O2 Sat by Pulse Oximetry (%) 97 04/30/20 09:00 CBC,CMP WBC 7.3 K/mm3 (4.0-10.0) 04/30/20 10:49 RBC 3.03 M/mm3 (3.60-5.2) L 04/30/20 10:49 Hgb 9.1 GM/dL (10.7-15.3) L 04/30/20 10:49 Hct 27.5 % (32.4-45.2) L 04/30/20 10:49 MCV 90.7 fl (80-96) 04/30/20 10:49 MCH 30.0 pg (25.7-33.7) 04/30/20 10:49 MCHC 33.1 g/dl (32.0-36.0) 04/30/20 10:49 RDW 17.1 % (11.6-15.6) H 04/30/20 10:49 Plt Count 62 K/MM3 (134-434) L D 04/30/20 10:49 MPV 9.5 fl (7.5-11.1) 04/30/20 10:49 Absolute Neuts (auto) 4.9 K/mm3 (1.5-8.0) 04/30/20 10:49 Neutrophils % 67.7 % (42.8-82.8) 04/30/20 10:49 Lymphocytes % 14.5 % (8-40) 04/30/20 10:49 Monocytes % 14.3 % (3.8-10.2) H 04/30/20 10:49 Eosinophils % 3.0 % (0-4.5) 04/30/20 10:49 Basophils % 0.5 % (0-2.0) 04/30/20 10:49 Nucleated RBC % 0 % (0-0) 04/30/20 10:49 Sodium 135 mmol/L (136-145) L 04/30/20 10:49 Potassium 5.8 mmol/L (3.5-5.1) H 04/30/20 10:49 Chloride 104 mmol/L (98-107) 04/30/20 10:49 Carbon Dioxide 25 mmol/L (21-32) 04/30/20 10:49 Anion Gap 5 MMOL/L (8-16) L 04/30/20 10:49 BUN 28.8 mg/dL (7-18) H 04/30/20 10:49 Creatinine 1.6 mg/dL (0.55-1.3) H 04/30/20 10:49 Est GFR (CKD-EPI)AfAm 35.90 04/30/20 10:49 Est GFR (CKD-EPI)NonAf 30.98 04/30/20 10:49 POC Glucometer 101 UNITS (80-120) 04/22/20 09:56 Random Glucose 82 mg/dL (74-106) 04/30/20 10:49 Lactic Acid 1.9 mmol/L (0.4-2.0) 04/19/20 04:00 Calcium 8.6 mg/dL (8.5-10.1) 04/30/20 10:49 Iron 115 ug/dL (50-175) 04/21/20 11:20 TIBC 122 ug/dL (250-450) L 04/21/20 11:20 Iron Saturation 94 % (17.5-39) H 04/21/20 11:20 Unsaturated IBC 7 ug/dL (200-275) L 04/21/20 11:20 Ferritin 337.7 ng/ml (8-388) 04/21/20 11:20 Total Bilirubin 1.7 mg/dL (0.2-1) H 04/30/20 10:49 AST 57 U/L (15-37) H 04/30/20 10:49 ALT 26 U/L (13-61) 04/30/20 10:49 Alkaline Phosphatase 152 U/L (45-117) H 04/30/20 10:49 Ammonia 21.20 umol/L (11-32) 04/24/20 12:02 Troponin I < 0.02 ng/ml (0.00-0.05) 04/29/20 01:30 Total Protein 6.1 g/dl (6.4-8.2) L 04/30/20 10:49 Albumin 1.9 g/dl (3.4-5.0) L 04/30/20 10:49 Triglycerides 36 mg/dL (0-150) 04/20/20 09:12 Cholesterol 101 mg/dL (50-200) 04/20/20 09:12 Total LDL Cholesterol 63 mg/dL (5-100) 04/20/20 09:12 HDL Cholesterol 27 mg/dL (40-60) L 04/20/20 09:12 TSH 2.67 uIU/ml (0.358-3.74) 04/21/20 11:20 Current Medications Generic Name Dose Route Start Last Admin Trade Name Freq PRN Reason Stop Dose Admin Acetaminophen 650 mg 04/20/20 12:24 04/29/20 17:09 Tylenol - PO 650 mg Q6H PRN Administration FEVER Al Hydroxide/Mg Hydroxide 30 ml 04/29/20 21:00 04/30/20 11:06 Mylanta Oral Suspension - PO 30 ml Q6H PRN Administration DYSPEPSIA Atorvastatin Calcium 10 mg 04/22/20 22:00 04/29/20 22:57 Lipitor - PO 10 mg HS [facility] Administration Dipyridamole/Aspirin 1 combo 04/28/20 22:00 04/30/20 11:06 Aggrenox - PO 1 combo BID [facility] Administration Lactulose 20 gm 04/22/20 14:00 04/30/20 06:41 Cephulac (Oral Use) PO Not Given TID [facility] Pantoprazole Sodium 40 mg 04/27/20 10:45 04/30/20 11:06 Protonix - PO 40 mg DAILY [facility] Administration Rifaximin 550 mg 04/29/20 22:00 04/30/20 11:06 Xifaxan - PO 550 mg BID [facility] Administration Constitutional: Calm Eyes: Yes: Conjunctiva Clear ...Auscultate: Yes: Normoactive Bowel Sounds ...Palpate: Yes: Soft, Other (nontender) Labs: CBC, BMP 04/30/20 10:49 04/30/20 10:49 Assessment/Plan IMpression: - Likely right colon cancer in the setting of KING induced cirrhosis with ascites, hepatic encephalopathy, thrombocytopenia, coagulopathy and possible recent CVA with multiple comorbidities Plan: - Discussed the intention of Maya's son Oscar to pursue colonoscopy with his intensive care unit registered nurse with Kelsie Peters NP and anticipate discharge. I told her that Maya arteaga idealjackie also need an EGD to exclude varices before planning any colon surgery - Continue the present hepatic regimen Problem List - Problems (1) Altered mental status Code(s): R41.82 - ALTERED MENTAL STATUS, UNSPECIFIED Qualifiers: Altered mental status type: unspecified Qualified Code(s): R41.82 - Altered mental status, unspecified (2) Mass of colon Code(s): K63.89 - OTHER SPECIFIED DISEASES OF INTESTINE (3) CHF (congestive heart failure) Code(s): I50.9 - HEART FAILURE, UNSPECIFIED Qualifiers: Heart failure type: unspecified Heart failure chronicity: unspecified Qualified Code(s): I50.9 - Heart failure, unspecified (4) CKD (chronic kidney disease) Code(s): N18.9 - CHRONIC KIDNEY DISEASE, UNSPECIFIED (5) Cirrhosis of liver with ascites Code(s): K74.60 - UNSPECIFIED CIRRHOSIS OF LIVER; R18.8 - OTHER ASCITES (6) HTN (hypertension) Code(s): I10 - ESSENTIAL (PRIMARY) HYPERTENSION (7) Hepatic encephalopathy Code(s): K72.90 - HEPATIC FAILURE, UNSPECIFIED WITHOUT COMA (8) 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 steatohepatitis) Code(s): K75.81 - NONALCOHOLIC STEATOHEPATITIS (KING); K74.60 - UNSPECIFIED C IRRHOSIS OF LIVER (9) Thrombocytopenia Code(s): D69.6 - THROMBOCYTOPENIA, UNSPECIFIED
--- NOTE | 2020-04-30 13:01 | PN ---
Progress Note, Physician History of Present Illness: Pt seen and examined at bedside. She is awake and alert. She denies shortness of breath. - Current Medication List Current Medications: Active Medications Acetaminophen (Tylenol -) 650 mg PO Q6H PRN PRN Reason: FEVER Last Admin: 04/29/20 17:09 Dose: 650 mg Documented by: Al Hydroxide/Mg Hydroxide (Mylanta Oral Suspension -) 30 ml PO Q6H PRN PRN Reason: DYSPEPSIA Last Admin: 04/30/20 11:06 Dose: 30 ml Documented by: Atorvastatin Calcium (Lipitor -) 10 mg PO HS [facility] Last Admin: 04/29/20 22:57 Dose: 10 mg Documented by: Dipyridamole/Aspirin (Aggrenox -) 1 combo PO BID [facility] Last Admin: 04/30/20 11:06 Dose: 1 combo Documented by: Lactulose (Cephulac (Oral Use)) 20 gm PO TID [facility] Last Admin: 04/30/20 06:41 Dose: Not Given Documented by: Pantoprazole Sodium (Protonix -) 40 mg PO DAILY [facility] Last Admin: 04/30/20 11:06 Dose: 40 mg Documented by: Rifaximin (Xifaxan -) 550 mg PO BID [facility] Last Admin: 04/30/20 11:06 Dose: 550 mg Documented by: Sodium Zirconium Cyclosilicate (Lokelma) 10 gm PO DAILY [facility] - Objective Vital Signs: Vital Signs Temperature 98.2 F 04/30/20 09:00 Pulse Rate 86 04/30/20 09:00 Respiratory Rate 18 04/30/20 09:00 Blood Pressure 98/50 L 04/30/20 09:00 O2 Sat by Pulse Oximetry (%) 97 04/30/20 09:00 Constitutional: Yes: Calm Eyes: Yes: Conjunctiva Clear HENT: Yes: Atraumatic Neck: Yes: Supple Cardiovascular: Yes: S1, S2 Respiratory: Yes: CTA Bilaterally Gastrointestinal: Yes: Soft, Abdomen, Obese Genitourinary: Yes: WNL Musculoskeletal: Yes: WNL Edema: Yes Edema: LLE: Trace, RLE: Trace Neurological: Yes: Oriented Psychiatric: Yes: Oriented Labs: CBC, BMP 04/30/20 10:49 04/30/20 10:49 Problem List - Problems (1) Altered mental status Code(s): R41.82 - ALTERED MENTAL STATUS, UNSPECIFIED Qualifiers: Altered mental status type: unspecified Qualified Code(s): R41.82 - Altered mental status, unspecified (2) Atypical syncope Code(s): R55 - SYNCOPE AND COLLAPSE (3) CHF (congestive heart failure) Code(s): I50.9 - HEART FAILURE, UNSPECIFIED Qualifiers: Heart failure type: unspecified Heart failure chronicity: unspecified Qualified Code(s): I50.9 - Heart failure, unspecified (4) CKD (chronic kidney disease) Code(s): N18.9 - CHRONIC KIDNEY DISEASE, UNSPECIFIED (5) Chronic liver disease and cirrhosis Code(s): K74.60 - UNSPECIFIED CIRRHOSIS OF LIVER; K76.9 - LIVER DISEASE, UNSPECIFIED Assessment/Plan Current Medications Generic Name Dose Route Start Last Admin Trade Name Freq PRN Reason Stop Dose Admin Acetaminophen 650 mg 04/20/20 12:24 04/29/20 17:09 Tylenol - PO 650 mg Q6H PRN Administration FEVER Al Hydroxide/Mg Hydroxide 30 ml 04/29/20 21:00 04/30/20 11:06 Mylanta Oral Suspension - PO 30 ml Q6H PRN Administration DYSPEPSIA Atorvastatin Calcium 10 mg 04/22/20 22:00 04/29/20 22:57 Lipitor - PO 10 mg HS [facility] Administration Dipyridamole/Aspirin 1 combo 04/28/20 22:00 04/30/20 11:06 Aggrenox - PO 1 combo BID [facility] Administration Lactulose 20 gm 04/22/20 14:00 04/30/20 06:41 Cephulac (Oral Use) PO Not Given TID [facility] Pantoprazole Sodium 40 mg 04/27/20 10:45 04/30/20 11:06 Protonix - PO 40 mg DAILY [facility] Administration Rifaximin 550 mg 04/29/20 22:00 04/30/20 11:06 Xifaxan - PO 550 mg BID [facility] Administration Sodium Zirconium Cyclosilicate 10 gm 04/30/20 13:00 Lokelma PO DAILY [facility] Impression 1. CKD 2. ascites 3. liver cirrhosis 4. mass like lesion suspicious for cancer in ascending colon 5. microscopic hematuria 6. hld 7. altered mental status 8. hyperkalemia Plan - repeat potassium level, she did have turnicate on for a long time while blood was drawn - can give a dose of loklema - aldactone has been on hold - will evaluate for diuretics daily - spoke to nurse to call me with lab results - GI follow up for lesion on ct scan
[2020-04-30 13:14] LABS: EPI CELLS >36 /uL (0-25.1); HYALINE CASTS 10 /uL (0-3.1); URINE APPEARANCE CLEAR; URINE BACTERIA 62 /uL (0-1359); URINE BILIRUBIN NEGATIVE (NEGATIVE); URINE COLOR DK YELLOW; URINE GLUCOSE (UA) NEGATIVE (NEGATIVE); URINE KETONE NEGATIVE (NEGATIVE); URINE LEUK ESTERASE 1+ (NEGATIVE); URINE NITRITE NEGATIVE (NEGATIVE); URINE PROTEIN NEGATIVE (NEGATIVE); URINE UROBILINOGEN 0.2 mg/dL (0.2-1.0); URINE WBC 151 /uL (0-25.8)
--- NOTE | 2020-04-30 15:44 | ECHO ---
Version: 1 Name: FRANSISCO BURDEN Exam: Adult Echocardiogram Study Date: 04/30/2020, 2:15 PM Age: 74 Years MMode/2D Measurements & Calculations IVSd: 1.17 cm LVIDs: 2.50 cm LVIDd: 3.9 cm LVPWd: 1.14 cm LAV (MOD-bp): 59.3 ml LVOT diam: 2.00 cm Ao root diam: 3.0 cm LA dimension: 3.8 cm Doppler Measurements & Calculations MV E max valente: 83.1 cm/sec Med E/e': 18.6 MV A max valente: 181.7 cm/sec Med Peak E' Valente: 4.5 cm/sec MV E/A: 0.46 Lat E/e': 17.0 Lat Peak E' Valente: 4.9 cm/sec MR max P.8 mmHg Ao max P.1 mmHg Ao V2 max: 212.8 cm/sec Procedure The study was technically difficult with many images being suboptimal in quality. The patient was in normal sinus rhythm during the exam. Left Ventricle The left ventricle is grossly normal size. Left ventricular systolic function is grossly normal. Eje ction Fraction = 65%. The transmitral spectral Doppler flow pattern is suggestive of impaired LV relaxatio n. Right Ventricle The right ventricle is grossly normal size. The right ventricular systolic function is grossly lionel l. Atria The left atrial size is normal. Mitral Valve There is moderate mitral valve thickening. The mitral valve is not well visualized. There is mild mi tral regurgitation. Tricuspid Valve The tricuspid valve is normal. The tricuspid valve is not well visualized. There is mild tricuspid regurgitation. Aortic Valve Fibrocalcific aortic valve without stenosis. The aortic valve is not well visualized. Trace aortic regurgitation. Pulmonic Valve The pulmonic valve is not well visualized. The pulmonic valve is not well seen, but is grossly lionel l. There is no pulmonic valvular regurgitation. Great Vessels The aortic root is normal size. Pericardium/Pleura There is no pericardial effusion. No obvious intracardiac vegetations seen. Summary Statements The study was technically difficult with many images being suboptimal in quality. Left ventricular systolic function is grossly normal. The transmitral spectral Doppler flow pattern is suggestive of impaired LV relaxation. The right ventricular systolic function is grossly normal. There is moderate mitral valve thickening. There is mild mitral regurgitation. There is mild tricuspid regurgitation. Fibrocalcific aortic valve without stenosis. Trace aortic regurgitation. There is no pericardial effusion. No obvious intracardiac vegetations seen. MD Grabiel Serna 04/30/2020, 3:43 PM Ordering Physician: Saba Hernnadez Performed By: Melida Schaeffer
[2020-04-30 15:54] LABS: YEAST FEW YEAST LIKE CELLS (NEGATIVE)
[2020-04-30] MEDS: SODIUM ZIRCONIUM CYCLOSILICATE (LOKELMA) 5 GM PACKET PO SCH (16:59)
[2020-04-30 17:59] LABS: CREATININE 1.8 mg/dL (0.55-1.3)
[2020-04-30 18:02] LABS: POTASSIUM 6.8 mmol/L (3.5-5.1)
[2020-04-30] MEDS: ATORVASTATIN CA 10 MG TABLET (FP) PO SCH (22:08)
[2020-04-30 23:15] LABS: BLOOD UREA NITROGEN 32.4 mg/dL (7-18); CALCIUM 8.7 mg/dL (8.5-10.1); CREATININE 1.6 mg/dL (0.55-1.3); POTASSIUM 5.5 mmol/L (3.5-5.1)
[2020-05-01] MEDS ORDERED: SODIUM ZIRCONIUM CYCLOSILICATE (LOKELMA) 10 GM PACKET PO ONE (00:30)
[2020-05-01 08:30] LABS: BASO % 0.3 % (0-2.0); EOS % 0.8 % (0-4.5); HEMATOCRIT 29.7 % (32.4-45.2); HEMOGLOBIN 9.8 GM/dL (10.7-15.3); LYMPH % 13.2 % (8-40); MCH 30.1 pg (25.7-33.7); MEAN CELL VOLUME 91.2 fl (80-96); MEAN PLT VOLUME 9.7 fl (7.5-11.1); NEUT % 71.7 % (42.8-82.8); PLATELET COUNT 66 K/MM3 (134-434); RBC 3.26 M/mm3 (3.60-5.2); RDW 17.4 % (11.6-15.6); WHITE BLOOD COUNT 8.5 K/mm3 (4.0-10.0)
--- NOTE | 2020-05-01 08:33 | PN ---
Teaching Attending Note Name of Resident: Sandra Rodgers ATTENDING PHYSICIAN STATEMENT I saw and evaluated the patient. I reviewed the resident's note and discussed the case with the resident. I agree with the resident's findings and plan as documented. ASSESSMENT AND PLAN: Pt. is a 74 y.o. F w/ PMHx. of Cirrhosis(KING w/ ascites and Hx. of HE), HFpEF, Afib(on reduced? dose Eliquis), CKD (Stage 3), Venous insufficiency, HTN, Anemia, and Thrombocytopenia presents with altered mental status/syncope. Noted to have acute temporal infarct We were called for further evaluate colonic mass noted on CT scan #Colon mass -CT abdomen was done and revealed a circumferential mass lesion in the distal portion of the ascending colon with an apple core appearance that is highly suspicious for colon tumor. #Thrombocytopenia -likely 2/2 liver cirrhosis -was on ASA and plavix for new CVA,and placed on aggrenox Given overall comorbidities including advanced cirrhosis , would recommend family meeting with goals of care discussion Discussed with patient her challenging situation
[2020-05-01 08:39] LABS: INR 1.24 (0.83-1.09); PROTHROMBIN TIME (PATIENT) 14.7 SEC (9.7-13.0)
[2020-05-01 08:41] LABS: ACTIVATED PTT 40.5 SECONDS (25.2-36.5)
[2020-05-01 09:13] LABS: BILIRUBIN,TOTAL 2.4 mg/dL (0.2-1); BLOOD UREA NITROGEN 33.5 mg/dL (7-18); CALCIUM 8.8 mg/dL (8.5-10.1); CREATININE 1.8 mg/dL (0.55-1.3); POTASSIUM 5.6 mmol/L (3.5-5.1); TOT PROT 6.6 g/dl (6.4-8.2)
--- NOTE | 2020-05-01 10:21 | PN ---
Progress Note, Physician History of Present Illness: Events noted Chart reviewed GI note noted and appreciated No new neuro events Platelets slightly better weak allover - Current Medication List Current Medications: Active Medications Acetaminophen (Tylenol -) 650 mg PO Q6H PRN PRN Reason: FEVER Last Admin: 04/29/20 17:09 Dose: 650 mg Documented by: Al Hydroxide/Mg Hydroxide (Mylanta Oral Suspension -) 30 ml PO Q6H PRN PRN Reason: DYSPEPSIA Last Admin: 04/30/20 11:06 Dose: 30 ml Documented by: Atorvastatin Calcium (Lipitor -) 10 mg PO HS [facility] Last Admin: 04/30/20 22:08 Dose: 10 mg Documented by: Dipyridamole/Aspirin (Aggrenox -) 1 combo PO BID [facility] Last Admin: 04/30/20 22:08 Dose: 1 combo Documented by: Lactulose (Cephulac (Oral Use)) 20 gm PO TID [facility] Last Admin: 04/30/20 22:08 Dose: Not Given Documented by: Pantoprazole Sodium (Protonix -) 40 mg PO DAILY [facility] Last Admin: 04/30/20 11:06 Dose: 40 mg Documented by: Rifaximin (Xifaxan -) 550 mg PO BID [facility] Last Admin: 04/30/20 22:08 Dose: 550 mg Documented by: Sodium Zirconium Cyclosilicate (Lokelma) 10 gm PO DAILY [facility] Last Admin: 04/30/20 16:59 Dose: 10 gm Documented by: - Objective Vital Signs: Vital Signs Temperature 97.6 F 05/01/20 06:00 Pulse Rate 86 05/01/20 06:00 Respiratory Rate 18 05/01/20 06:00 Blood Pressure 97/55 L 05/01/20 06:00 O2 Sat by Pulse Oximetry (%) 97 05/01/20 06:00 Constitutional: Yes: Well Nourished Eyes: Yes: WNL Neurological: Yes: Alert, Oriented, Babinski negative, Cran Nerves II-XII Intact, Dysarthria ...Motor Strength: WNL Labs: CBC, BMP 05/01/20 07:55 05/01/20 07:55 INR, PTT INR 1.24 (0.83-1.09) H 05/01/20 07:55 Fibrinogen 141.0 mg/dL (238-498) L 05/01/20 07:55 Problem List - Problems (1) Atypical syncope Code(s): R55 - SYNCOPE AND COLLAPSE (2) Altered mental status Code(s): R41.82 - ALTERED MENTAL STATUS, UNSPECIFIED Qualifiers: Altered mental status type: unspecified Qualified Code(s): R41.82 - Altered mental status, unspecified Assessment/Plan Will call Oscar condon DVT prophylaxis Follow up with GI and heme
[2020-05-01] MEDS ORDERED: PT OWN MED DRAWER 7, Y5N ONE ×2 (10:34→21:38)
[2020-05-01] MEDS: LACTULOSE 20 GM/30 ML UDC (FOR ORAL USE ONLY) PO SCH ×3 (10:36→21:40)
[2020-05-01] MEDS: RIFAXIMIN 550 MG TABLET (UD) PO SCH ×2 (10:38→21:40)
[2020-05-01] MEDS: SODIUM ZIRCONIUM CYCLOSILICATE (LOKELMA) 5 GM PACKET PO SCH (10:38)
[2020-05-01] MEDS: ASPIRIN/DIPYRIDAMOLE 25 MG/200 MG CAPSULE PO SCH ×2 (10:38→21:40)
[2020-05-01] MEDS: PANTOPRAZOLE 40 MG TABLET PO SCH (10:38)
--- NOTE | 2020-05-01 11:28 | PN ---
Progress Note, Physician History of Present Illness: Pt seen and examined at bedside. She is awake but appears fatigued. She says that she has poor po intake. - Current Medication List Current Medications: Active Medications Acetaminophen (Tylenol -) 650 mg PO Q6H PRN PRN Reason: FEVER Last Admin: 04/29/20 17:09 Dose: 650 mg Documented by: Al Hydroxide/Mg Hydroxide (Mylanta Oral Suspension -) 30 ml PO Q6H PRN PRN Reason: DYSPEPSIA Last Admin: 04/30/20 11:06 Dose: 30 ml Documented by: Atorvastatin Calcium (Lipitor -) 10 mg PO HS [facility] Last Admin: 04/30/20 22:08 Dose: 10 mg Documented by: Dipyridamole/Aspirin (Aggrenox -) 1 combo PO BID [facility] Last Admin: 05/01/20 10:38 Dose: 1 combo Documented by: Lactulose (Cephulac (Oral Use)) 20 gm PO TID [facility] Last Admin: 05/01/20 10:36 Dose: Not Given Documented by: Pantoprazole Sodium (Protonix -) 40 mg PO DAILY [facility] Last Admin: 05/01/20 10:38 Dose: 40 mg Documented by: Rifaximin (Xifaxan -) 550 mg PO BID [facility] Last Admin: 05/01/20 10:38 Dose: 550 mg Documented by: Sodium Zirconium Cyclosilicate (Lokelma) 10 gm PO DAILY [facility] Last Admin: 05/01/20 10:38 Dose: 10 gm Documented by: - Objective Vital Signs: Vital Signs Temperature 97.6 F 05/01/20 06:00 Pulse Rate 86 05/01/20 06:00 Respiratory Rate 18 05/01/20 06:00 Blood Pressure 97/55 L 05/01/20 06:00 O2 Sat by Pulse Oximetry (%) 97 05/01/20 06:00 Constitutional: Yes: Calm Eyes: Yes: Conjunctiva Clear HENT: Yes: Atraumatic Cardiovascular: Yes: S1, S2 Respiratory: Yes: CTA Bilaterally Gastrointestinal: Yes: Soft, Abdomen, Obese Genitourinary: Yes: WNL Musculoskeletal: Yes: Muscle Weakness Edema: Yes Edema: LLE: Trace, RLE: Trace Neurological: Yes: Oriented Labs: CBC, BMP 05/01/20 07:55 05/01/20 07:55 INR, PTT INR 1.24 (0.83-1.09) H 05/01/20 07:55 Fibrinogen 141.0 mg/dL (238-498) L 05/01/20 07:55 Problem List - Problems (1) Altered mental status Code(s): R41.82 - ALTERED MENTAL STATUS, UNSPECIFIED Qualifiers: Altered mental status type: unspecified Qualified Code(s): R41.82 - Altered mental status, unspecified (2) Atypical syncope Code(s): R55 - SYNCOPE AND COLLAPSE (3) CHF (congestive heart failure) Code(s): I50.9 - HEART FAILURE, UNSPECIFIED Qualifiers: Heart failure type: unspecified Heart failure chronicity: unspecified Qualified Code(s): I50.9 - Heart failure, unspecified (4) CKD (chronic kidney disease) Code(s): N18.9 - CHRONIC KIDNEY DISEASE, UNSPECIFIED (5) Chronic liver disease and cirrhosis Code(s): K74.60 - UNSPECIFIED CIRRHOSIS OF LIVER; K76.9 - LIVER DISEASE, UNSPEC IFIED Assessment/Plan Current Medications Generic Name Dose Route Start Last Admin Trade Name Freq PRN Reason Stop Dose Admin Acetaminophen 650 mg 04/20/20 12:24 04/29/20 17:09 Tylenol - PO 650 mg Q6H PRN Administration FEVER Al Hydroxide/Mg Hydroxide 30 ml 04/29/20 21:00 04/30/20 11:06 Mylanta Oral Suspension - PO 30 ml Q6H PRN Administration DYSPEPSIA Atorvastatin Calcium 10 mg 04/22/20 22:00 04/30/20 22:08 Lipitor - PO 10 mg HS TAMMY Administration Dipyridamole/Aspirin 1 combo 04/28/20 22:00 05/01/20 10:38 Aggrenox - PO 1 combo BID TAMMY Administration Lactulose 20 gm 04/22/20 14:00 05/01/20 10:36 Cephulac (Oral Use) PO Not Given TID TAMMY Pantoprazole Sodium 40 mg 04/27/20 10:45 05/01/20 10:38 Protonix - PO 40 mg DAILY TAMMY Administration Rifaximin 550 mg 04/29/20 22:00 05/01/20 10:38 Xifaxan - PO 550 mg BID TAMMY Administration Sodium Zirconium Cyclosilicate 10 gm 04/30/20 13:00 05/01/20 10:38 Lokelma PO 10 gm DAILY TAMMY Administration Impression 1. CKD 2. ascites 3. liver cirrhosis 4. mass like lesion suspicious for cancer in ascending colon 5. microscopic hematuria 6. hld 7. altered mental status 8. hyperkalemia Plan -will cont lokelma for hyperkalemia - claudia start saline as she has poor po intake - cont to monitor lytes - check urine sodium and assessment consultant - assessment consultant is rising - diuretics have been on hold - monitor bp
[2020-05-01] MEDS ORDERED: DEXTROSE 5%-NORMAL SALINE 1,000 ML IV SCH (11:30)
[2020-05-01] MEDS ORDERED: busPIRone HCL 5 MG TABLET PO PRN (11:52)
--- NOTE | 2020-05-01 11:55 | PN ---
Progress Note, Physician Chief Complaint: Syncope Colonic mass CKD Anemia Liver cirrhosis History of Present Illness: 74 y.o. F w/ PMHx. of Cirrhosis(KING w/ ascites and Hx. of HE), HFpEF, Afib(was on reduced dose Eliquis), CKD (Stage 3), Venous insufficiency, HTN, anemia, and thrombocytopenia. presents via EMS with AMS. ems reports she was found on the floor by her son. pt is not aware of how sequenc of events happened and only remembers being on the ambulance. She is able to recall that she takes blood pressure medication and lactulose on a daily basis.She denies headache, chest pain, SOB, abdominal pain, she is alert and oriented to person and place. NAD, sitting in a chair Spoke to son, who wants to take Milicent to his own Correspondence Clerk, but is unable to pick his mother up from hospital until tuesday morning. - Current Medication List Current Medications: Active Medications Acetaminophen (Tylenol -) 650 mg PO Q6H PRN PRN Reason: FEVER Last Admin: 04/29/20 17:09 Dose: 650 mg Documented by: Al Hydroxide/Mg Hydroxide (Mylanta Oral Suspension -) 30 ml PO Q6H PRN PRN Reason: DYSPEPSIA Last Admin: 04/30/20 11:06 Dose: 30 ml Documented by: Atorvastatin Calcium (Lipitor -) 10 mg PO HS [facility] Last Admin: 04/30/20 22:08 Dose: 10 mg Documented by: Dipyridamole/Aspirin (Aggrenox -) 1 combo PO BID [facility] Last Admin: 05/01/20 10:38 Dose: 1 combo Documented by: Escitalopram Oxalate (Lexapro -) 10 mg PO DAILY [facility] Dextrose/Sodium Chloride (D5-Ns -) 1,000 mls @ 42 mls/hr IV ASDIR [facility] Lactulose (Cephulac (Oral Use)) 20 gm PO TID [facility] Last Admin: 05/01/20 10:36 Dose: Not Given Documented by: Pantoprazole Sodium (Protonix -) 40 mg PO DAILY [facility] Last Admin: 05/01/20 10:38 Dose: 40 mg Documented by: Rifaximin (Xifaxan -) 550 mg PO BID [facility] Last Admin: 05/01/20 10:38 Dose: 550 mg Documented by: Sodium Zirconium Cyclosilicate (Lokelma) 10 gm PO DAILY TAMMY Last Admin: 05/01/20 10:38 Dose: 10 gm Documented by: - Objective Vital Signs: Vital Signs Temperature 97.6 F 05/01/20 06:00 Pulse Rate 86 05/01/20 06:00 Respiratory Rate 18 05/01/20 06:00 Blood Pressure 97/55 L 05/01/20 06:00 O2 Sat by Pulse Oximetry (%) 97 05/01/20 06:00 Constitutional: Yes: Well Nourished, No Distress, Calm Cardiovascular: Yes: Regular Rate and Rhythm Respiratory: Yes: Regular, CTA Bilaterally Gastrointestinal: Yes: Normal Bowel Sounds, Soft Genitourinary: Yes: Incontinence Musculoskeletal: Yes: Muscle Weakness Extremities: Yes: WNL Edema: Yes Edema: LLE: Trace, RLE: Trace Peripheral Pulses WNL: Yes Neurological: Yes: Alert, Oriented Psychiatric: Yes: Alert, Oriented Labs: CBC, BMP 05/01/20 07:55 05/01/20 07:55 INR, PTT INR 1.24 (0.83-1.09) H 05/01/20 07:55 Fibrinogen 141.0 mg/dL (238-498) L 05/01/20 07:55 Problem List - Problems (1) Mass of colon Assessment/Plan: -CTAP:In the included lower lung moderate COPD changes are present. The heart is within normal limits in size. The liver is small with a lung nodule or contour again suggestive of cirrhosis without gross evidence of a hepatic lesion. The spleen is slightly enlarged measuring 12.5 cm in craniocaudal length. Partially distended gallbladder with suggestion of small stones layering posteriorly. The pancreas, both adrenal glands and both kidneys appear grossly unremarkable. Moderate amount of free fluid/ascites is present. Partially distended stomach without wall thickening. There is no evidence of small bowel obstruction There is a short segment of significant wall thickening and narrowing of the lumen in the distal portion of the ascending colon measuring approximately 3.7 cm in length suggestive of a mass. There is significant thickening of the descending colon wall suggestive of colitis. Partially distended urinary bladder with intraluminal air pockets that may be iatrogenic. Visualized osseous structures appear grossly intact -Seen by GI -Would need EGD for biopsy -Cardiac clearance -Oncology consult -Will need to hold aggrenox for 5 days prior to procedure -Would also need Plt transfusions prior to procedure -Spoke to son Oscar, who will be taking his mother to his own blue prints trimmer in [place]. Will medicinal plant picker pt on Tuesday. Problems reviewed: Yes Code(s): K63.89 - OTHER SPECIFIED DISEASES OF INTESTINE (2) Syncope Assessment/Plan: -Seen by Neurology -CVA as per neurology Problems reviewed: Yes Code(s): R55 - SYNCOPE AND COLLAPSE Qualifiers: Syncope type: unspecified Qualified Code(s): R55 - Syncope and collapse (3) Afib Assessment/Plan: -AC was stopped last admission 2/2 to vaginal bleed -Chronic, Rate controlled Problems reviewed: Yes Code(s): I48.91 - UNSPECIFIED ATRIAL FIBRILLATION (4) Cryptogenic cirrhosis Assessment/Plan: -Restart Rifaximin -Continue lactulose -Restart spironolactone + furosemide on nephrology discretion Problems reviewed: Yes Code(s): K74.69 - OTHER CIRRHOSIS OF LIVER (5) Atypical chest pain Assessment/Plan: -Resolved -EKG normal -Trops negative -cardiology on board -Likely 2/2 to acid reflux, will try one dose of mylanta Problems reviewed: Yes Code(s): R07.89 - OTHER CHEST PAIN (6) Thrombocytopenia Assessment/Plan: -Chronic -2/2 to chronic liver dz -monitor trend Problems reviewed: Yes Code(s): D69.6 - THROMBOCYTOPENIA, UNSPECIFIED Assessment/Plan See problem list D/C home, Son refused services
[2020-05-01] MEDS: MAG HYDROX/AL HYDROX/SIMETH 30 ML UNIT-DOSE CUP PO PRN ×2 (12:54→22:08)
[2020-05-01] MEDS: ESCITALOPRAM OXALATE 10 MG TABLET PO SCH (12:54)
[2020-05-01] MEDS: ONDANSETRON 4 MG/2 ML VIAL IVPB PRN (18:06)
[2020-05-01 19:45] LABS: EPI CELLS 2 /uL (0-25.1); HYALINE CASTS 0 /uL (0-3.1); PH,URINE 5.5 (5.0-8.0); URINE APPEARANCE CLEAR; URINE BILIRUBIN NEGATIVE (NEGATIVE); URINE COLOR DK YELLOW; URINE GLUCOSE (UA) NEGATIVE (NEGATIVE); URINE KETONE TRACE (NEGATIVE); URINE LEUK ESTERASE NEGATIVE (NEGATIVE); URINE NITRITE POSITIVE (NEGATIVE); URINE PROTEIN NEGATIVE (NEGATIVE); URINE RBC 40 /uL (0-23.9); URINE UROBILINOGEN 0.2 mg/dL (0.2-1.0); URINE WBC 36 /uL (0-25.8)
[2020-05-01 20:10] LABS: URINE BACTERIA 38.2 /uL (0-1359); YEAST MODERATE (NEGATIVE)
[2020-05-01] MEDS: ATORVASTATIN CA 10 MG TABLET (FP) PO SCH (21:40)
[2020-05-02] MEDS: LACTULOSE 20 GM/30 ML UDC (FOR ORAL USE ONLY) PO SCH (05:14)
[2020-05-02] MEDS: ACETAMINOPHEN 325 MG TABLET (FP) PO PRN (05:54)
[2020-05-02 06:36] LABS: BASO % 0.3 % (0-2.0); EOS % 1.4 % (0-4.5); HEMATOCRIT 26.2 % (32.4-45.2); HEMOGLOBIN 8.6 GM/dL (10.7-15.3); LYMPH % 10.8 % (8-40); MCH 30.3 pg (25.7-33.7); MCHC 32.9 g/dl (32.0-36.0); MEAN CELL VOLUME 91.9 fl (80-96); MEAN PLT VOLUME 9.8 fl (7.5-11.1); MONO % 13.4 % (3.8-10.2); NEUT % 74.1 % (42.8-82.8); PLATELET COUNT 54 K/MM3 (134-434); RBC 2.85 M/mm3 (3.60-5.2); RDW 17.9 % (11.6-15.6); WHITE BLOOD COUNT 6.6 K/mm3 (4.0-10.0)
[2020-05-02 07:05] LABS: ALBUMIN 1.8 g/dl (3.4-5.0); BILIRUBIN,TOTAL 2.2 mg/dL (0.2-1); BLOOD UREA NITROGEN 33.5 mg/dL (7-18); CALCIUM 8.1 mg/dL (8.5-10.1); CREATININE 1.8 mg/dL (0.55-1.3); POTASSIUM 4.5 mmol/L (3.5-5.1); TOT PROT 6.2 g/dl (6.4-8.2)
[2020-05-02] MEDS ORDERED: PT OWN MED DRAWER 7, Y5N ONE (09:12)
[2020-05-02] MEDS: ASPIRIN/DIPYRIDAMOLE 25 MG/200 MG CAPSULE PO SCH (09:17)
[2020-05-02] MEDS: ESCITALOPRAM OXALATE 10 MG TABLET PO SCH (09:17)
[2020-05-02] MEDS: PANTOPRAZOLE 40 MG TABLET PO SCH (09:17)
[2020-05-02] MEDS: SODIUM ZIRCONIUM CYCLOSILICATE (LOKELMA) 5 GM PACKET PO SCH (09:18)
[2020-05-02] MEDS: RIFAXIMIN 550 MG TABLET (UD) PO SCH (09:18)
[2020-05-02 10:00] VITALS: BP 100/54; PULSE 76; TEMP 98.4
--- NOTE | 2020-05-02 10:21 | DS ---
Physical Examination Vital Signs: Vital Signs Temperature 98.4 F 05/02/20 09:59 Pulse Rate 76 05/02/20 09:59 Respiratory Rate 18 05/02/20 09:59 Blood Pressure 100/54 L 05/02/20 09:59 O2 Sat by Pulse Oximetry (%) 97 05/02/20 09:59 Findings/Remarks: 74 y.o. F w/ PMHx. of Cirrhosis(KING w/ ascites and Hx. of HE), HFpEF, Afib(was on reduced dose Eliquis), CKD (Stage 3), Venous insufficiency, HTN, anemia, and thrombocytopenia. presented to [facility] via EMS with chief complaint of unwitnessed fall/syncope. As per EMS, pt was found on the floor by son. Pt was able to regain consciousness in the ambulance, didn't recall events. Pt was on Toprol 12.5 mg at home for afib + spironolactone 100 mg + Furosemide 40 mg po daily, was assumed to be + orthostatic that lead to syncope. Pt was evaluated by cardiology and Neurology. CT head (1) Mass of colon Assessment/Plan: -CTAP:In the included lower lung moderate COPD changes are present. The heart is within normal limits in size. The liver is small with a lung nodule or contour again suggestive of cirrhosis without gross evidence of a hepatic lesion. The spleen is slightly enlarged measuring 12.5 cm in craniocaudal length. Partially distended gallbladder with suggestion of small stones layering posteriorly. The pancreas, both adrenal glands and both kidneys appear grossly unremarkable. Moderate amount of free fluid/ascites is present. Partially distended stomach without wall thickening. There is no evidence of small bowel obstruction There is a short segment of significant wall thickening and narrowing of the lumen in the distal portion of the ascending colon measuring approximately 3.7 cm in length suggestive of a mass. There is significant thickening of the descending colon wall suggestive of colitis. Partially distended urinary bladder with intraluminal air pockets that may be iatrogenic. Visualized osseous structures appear grossly intact -Seen by GI -Would need EGD for biopsy -Cardiac clearance -Oncology consult -Will need to hold aggrenox for 5 days prior to procedure -Would also need Plt transfusions prior to procedure -Spoke to son Oscar, who will be taking his mother to his own band nailer in [place]. Will strip picker pt on Tuesday. Problems reviewed: Yes Code(s): K63.89 - OTHER SPECIFIED DISEASES OF INTESTINE (2) Syncope Assessment/Plan: -Seen by Neurology -CT head:[id number] volume loss and periventricular chronic microvascular ischemic disease changes without gross CT evidence of acute intracranial pathology. Correlate clinically to determine further evaluation and follow-up -MRI [id number]-[id number]-moderate volume loss and periventricular chronic microvascular ischemic disease changes without gross CT evidence of acute i ntracranial pathology. Correlate clinically to determine further evaluation and follow-up -Started on Aggrenox Problems reviewed: Yes Code(s): R55 - SYNCOPE AND COLLAPSE Qualifiers: Syncope type: unspecified Qualified Code(s): R55 - Syncope and collapse (3) Afib Assessment/Plan: -AC was stopped last admission 2/2 to vaginal bleed -Chronic, Rate controlled Problems reviewed: Yes Code(s): I48.91 - UNSPECIFIED ATRIAL FIBRILLATION (4) Cryptogenic cirrhosis Assessment/Plan: -Restart Rifaximin -Continue lactulose -Hold spironolactone+ Furosemide for now Problems reviewed: Yes Code(s): K74.69 - OTHER CIRRHOSIS OF LIVER (5) Atypical chest pain Assessment/Plan: -Resolved -EKG normal -Trops negative -cardiology on board -Likely 2/2 to acid reflux, mylanta prn Problems reviewed: Yes Code(s): R07.89 - OTHER CHEST PAIN (6) Thrombocytopenia Assessment/Plan: -Chronic -2/2 to chronic liver dz -monitor trend Problems reviewed: Yes Code(s): D69.6 - THROMBOCYTOPENIA, UNSPECIFIED Assessment/Plan See problem list D/C home, Son refused services Constitutional: Yes: Well Nourished, No Distress, Calm, Obese Cardiovascular: Yes: Regular Rate and Rhythm Respiratory: Yes: Regular, CTA Bilaterally Gastrointestinal: Yes: Normal Bowel Sounds, Soft, Abdomen, Obese Renal/: Yes: Incontinence Musculoskeletal: Yes: Muscle Weakness Extremities: Yes: WNL Edema: No Peripheral Pulses WNL: Yes Neurological: Yes: Alert, Oriented Psychiatric: Yes: Alert, Oriented Labs: CBC, BMP 05/02/20 05:33 05/02/20 05:33 Discharge Summary Problems reviewed: Yes Reason For Visit: SYNCOPE,HYPERAMMONEMIA,ALTERED MENTAL STATUS Current Active Problems Altered mental status (Acute) Atypical chest pain (Acute) Atypical syncope (Acute) CVA (cerebral vascular accident) (Acute) Increased ammonia level (Acute) Mass of colon (Acute) Syncope (Acute) Weakness (Acute) Condition: Stable - Instructions Referrals: Gatito Lieberman MD, MD [Primary Care Provider] - Disposition: HOME - Home Medications Comprehensive Discharge Medication List: Ambulatory Orders Lactulose (Oral Use) [Cephulac -] 20 gm PO QID 04/19/20 Rifaximin [Xifaxan] 550 mg PO DAILY 04/19/20 Acetaminophen [Tylenol .Regular Strength -] 650 mg PO Q6H PRN #240 tablet 05/01/20 Aspirin/Dipyridamole [Aggrenox -] 1 combo PO BID #60 capsule 05/01/20 Atorvastatin Ca [Lipitor] 10 mg PO HS #30 tablet 05/01/20 Buspirone HCl [Buspar -] 5 mg PO BID PRN #60 tablet 05/01/20 Escitalopram Oxalate [Lexapro -] 10 mg PO DAILY #30 tablet 05/01/20 Lactulose (Oral Use) [Cephulac -] 20 gm PO TID udc 05/01/20 Mag Hydrox/Al Hydrox/Simeth [Mylanta Oral Suspension -] 30 ml PO Q6H PRN #1 bot 05/01/20 Pantoprazole Sodium [Protonix -] 40 mg PO DAILY #30 tablet.ec 05/01/20 Rifaximin [Xifaxan -] 550 mg PO BID #60 tablet 05/01/20 Sodium Zirconium Cyclosilicate [Lokelma] 10 gm PO DAILY #30 packet 05/01/20 Prescription Drug Monitoring Program (I-STOP) results: I-STOP reviewed and no issues identified
[2020-05-02] MEDS: ONDANSETRON 4 MG/2 ML VIAL IVPB PRN (10:25)
--- NOTE | 2020-05-02 12:14 | PN ---
Progress Note, Physician History of Present Illness: Pt seen and examined at bedside. She is awake and alert. She denies shortness of breath. - Current Medication List Current Medications: Active Medications Acetaminophen (Tylenol -) 650 mg PO Q6H PRN PRN Reason: FEVER Last Admin: 05/02/20 05:54 Dose: 650 mg Documented by: Atorvastatin Calcium (Lipitor -) 10 mg PO HS [facility] Last Admin: 05/01/20 21:40 Dose: 10 mg Documented by: Buspirone HCl (Buspar -) 5 mg PO BID PRN PRN Reason: ANXIETY Dipyridamole/Aspirin (Aggrenox -) 1 combo PO BID [facility] Last Admin: 05/02/20 09:17 Dose: 1 combo Documented by: Escitalopram Oxalate (Lexapro -) 10 mg PO DAILY [facility] Last Admin: 05/02/20 09:17 Dose: 10 mg Documented by: Dextrose/Sodium Chloride (D5-Ns -) 1,000 mls @ 42 mls/hr IV ASDIR [facility] Last Admin: 05/01/20 12:54 Dose: 42 mls/hr Documented by: Lactulose (Cephulac (Oral Use)) 20 gm PO TID [facility] Last Admin: 05/02/20 05:14 Dose: Not Given Documented by: Ondansetron HCl (Zofran Injection) 8 mg IVPB Q6H PRN PRN Reason: NAUSEA Last Admin: 05/02/20 10:25 Dose: 8 mg Documented by: Pantoprazole Sodium (Protonix -) 40 mg PO DAILY [facility] Last Admin: 05/02/20 09:17 Dose: 40 mg Documented by: Rifaximin (Xifaxan -) 550 mg PO BID [facility] Last Admin: 05/02/20 09:18 Dose: 550 mg Documented by: Sodium Zirconium Cyclosilicate (Lokelma) 10 gm PO DAILY [facility] Last Admin: 05/02/20 09:18 Dose: 10 gm Documented by: - Objective Vital Signs: Vital Signs Temperature 98.4 F 05/02/20 09:59 Pulse Rate 76 05/02/20 09:59 Respiratory Rate 18 05/02/20 09:59 Blood Pressure 100/54 L 05/02/20 09:59 O2 Sat by Pulse Oximetry (%) 97 05/02/20 09:59 Constitutional: Yes: Calm Eyes: Yes: Conjunctiva Clear HENT: Yes: Atraumatic Neck: Yes: Supple Cardiovascular: Yes: S1, S2 Respiratory: Yes: CTA Bilaterally Gastrointestinal: Yes: Normal Bowel Sounds, Soft Genitourinary: Yes: WNL Musculoskeletal: Yes: WNL Edema: Yes Edema: LLE: Trace, RLE: Trace Neurological: Yes: Oriented Psychiatric: Yes: Oriented Labs: CBC, BMP 05/02/20 05:33 05/02/20 05:33 INR, PTT INR 1.24 (0.83-1.09) H 05/01/20 07:55 Fibrinogen 141.0 mg/dL (238-498) L 05/01/20 07:55 Problem List - Problems (1) Altered mental status Code(s): R41.82 - ALTERED MENTAL STATUS, UNSPECIFIED Qualifiers: Altered mental status type: unspecified Qualified Code(s): R41.82 - Altered mental status, unspecified (2) Atypical syncope Code(s): R55 - SYNCOPE AND COLLAPSE (3) CHF (congestive heart failure) Code(s): I50.9 - HEART FAILURE, UNSPECIFIED Qualifiers: Heart failure type: unspecified Heart failure chronicity: unspecified Qualified Code(s): I50.9 - Heart failure, unspecified (4) CKD (chronic kidney disease) Code(s): N18.9 - CHRONIC KIDNEY DISEASE, UNSPECIFIED (5) Chronic liver disease and cirrhosis Code(s): K74.60 - UNSPECIFIED CIRRHOSIS OF LIVER; K76.9 - LIVER DISEASE, UNSPECIFIED Assessment/Plan Current Medications Generic Name Dose Route Start Last Admin Trade Name Haileq PRN Reason Stop Dose Admin Acetaminophen 650 mg 04/20/20 12:24 05/02/20 05:54 Tylenol - PO 650 mg Q6H PRN Administration FEVER Atorvastatin Calcium 10 mg 04/22/20 22:00 05/01/20 21:40 Lipitor - PO 10 mg HS TAMMY Administration Buspirone HCl 5 mg 05/01/20 11:52 Buspar - PO BID PRN ANXIETY Dipyridamole/Aspirin 1 combo 04/28/20 22:00 05/02/20 09:17 Aggrenox - PO 1 combo BID TAMMY Administration Escitalopram Oxalate 10 mg 05/01/20 12:00 05/02/20 09:17 Lexapro - PO 10 mg DAILY TAMMY Administration Dextrose/Sodium Chloride 1,000 mls @ 42 mls/hr 05/01/20 11:30 05/01/20 12:54 D5-Ns - IV 42 mls/hr ASDIR TAMMY Administration Lactulose 20 gm 04/22/20 14:00 05/02/20 05:14 Cephulac (Oral Use) PO Not Given TID TAMMY Ondansetron HCl 8 mg 05/01/20 16:16 05/02/20 10:25 Zofran Injection IVPB 8 mg Q6H PRN Administration NAUSEA Pantoprazole Sodium 40 mg 04/27/20 10:45 05/02/20 09:17 Protonix - PO 40 mg DAILY TAMMY Administration Rifaximin 550 mg 04/29/20 22:00 05/02/20 09:18 Xifaxan - PO 550 mg BID TAMMY Administration Sodium Zirconium Cyclosilicate 10 gm 04/30/20 13:00 05/02/20 09:18 Lokelma PO 10 gm DAILY TAMMY Administration Impression 1. CKD 2. ascites 3. liver cirrhosis 4. mass like lesion suspicious for cancer in ascending colon 5. microscopic hematuria 6. hld 7. altered mental status 8. hyperkalemia Plan - potassium improved - encourage po intake - will stop lokelma - diuretics on hold for now - will need outpt follow up - monitor bp
== END 2020-05-02 13:40 | disposition home or self-care (01) | DRG 65 ==
LOC: JER 02:44 → JERBED 07:57 → J7W 19:04 → J4S 04-20 12:23
PROVIDERS: ADMIT Family Medicine; ATTEND Family Medicine
DX: I63.9 Cerebral infarction, unspecified (principal); E72.20 Disorder of urea cycle metabolism, unspecified; I50.32 Chronic diastolic (congestive) heart failure; I13.0 Hypertensive heart and chronic kidney disease with heart failure and stage 1 through stage 4 chronic kidney disease, or unspecified chronic kidney disease; R18.8 Other ascites; R55 Syncope and collapse; I48.91 Unspecified atrial fibrillation; K75.81 Nonalcoholic steatohepatitis (NASH); I10 Essential (primary) hypertension; D64.9 Anemia, unspecified; N18.3 Chronic kidney disease, stage 3 (moderate); K74.60 Unspecified cirrhosis of liver; R50.9 Fever, unspecified; K63.89 Other specified diseases of intestine; N18.9 Chronic kidney disease, unspecified; R31.29 Other microscopic hematuria; E87.5 Hyperkalemia; E78.5 Hyperlipidemia, unspecified; R41.82 Altered mental status, unspecified; R07.89 Other chest pain; D69.6 Thrombocytopenia, unspecified; I95.9 Hypotension, unspecified; E86.0 Dehydration; I69.392 Facial weakness following cerebral infarction
CPT/HCPCS: 36415; 70450-TC; 70551-TC; 71045-TC-FY; 74176-TC; 76705-TC; 80048; 80053; 80061; 81003; 82140; 82378; 82436; 82565; 82728; 82962; 83540; 83550; 83605; 83721; 84133; 84300; 84443; 84484; 85025; 85027; 85379; 85384; 85610; 85730; 87040; 87077; 87086; 93005; 93010; 93306-TC; 93880-TC; 97116-GP; 97161-GP; 99285-25; G0480; J1644; Q9967; U0003

== ENCOUNTER 2020-09-25 23:33 | Inpatient (IN) | payer OTHER ==
[2020-09-25] MEDS ORDERED: SODIUM CHLORIDE 2,041 ML IV ONE (23:59)
[2020-09-26] MEDS ORDERED: SODIUM CHLORIDE 1,000 ML IV STA (00:01)
[2020-09-26 00:45] LABS: BASO % 0.2 % (0-2.0); EOS % 2.8 % (0-4.5); HEMATOCRIT 27.2 % (32.4-45.2); HEMOGLOBIN 8.6 GM/dL (10.7-15.3); LYMPH % 16.3 % (8-40); MCH 28.4 pg (25.7-33.7); MCHC 31.7 g/dl (32.0-36.0); MEAN CELL VOLUME 89.6 fl (80-96); MEAN PLT VOLUME 11.1 fl (7.5-11.1); NEUT % 72.7 % (42.8-82.8); PLATELET COUNT 47 K/MM3 (134-434); RBC 3.03 M/mm3 (3.60-5.2); RDW 16.1 % (11.6-15.6); WHITE BLOOD COUNT 6.8 K/mm3 (4.0-10.0)
[2020-09-26 00:58] LABS: INR 2.75 (0.83-1.09); PROTHROMBIN TIME (PATIENT) 32.3 SEC (9.7-13.0)
[2020-09-26 00:59] LABS: CHLORIDE 115 mmol/L (98-107); POTASSIUM 4.6 mmol/L (3.5-5.1); SODIUM 144 mmol/L (136-145)
[2020-09-26 01:01] LABS: ACTIVATED PTT 58.5 SECONDS (25.2-36.5)
[2020-09-26 01:02] LABS: ALBUMIN 1.9 g/dl (3.4-5.0); ANION GAP 5 MMOL/L (8-16); BLOOD UREA NITROGEN 44.4 mg/dL (7-18); CALCIUM 9.7 mg/dL (8.5-10.1); CO2 24 mmol/L (21-32)
[2020-09-26 01:03] LABS: GLUCOSE,RANDOM 102 mg/dL (74-106); LIPASE 55 U/L (73-393)
[2020-09-26 01:05] LABS: SGOT/AST 136 U/L (15-37); SGPT/ALT 65 U/L (13-61)
[2020-09-26 01:06] LABS: CREATININE 3.4 mg/dL (0.55-1.3)
[2020-09-26 01:07] LABS: BILIRUBIN,TOTAL 2.4 mg/dL (0.2-1); LDH 456 U/L (84-246); TOT PROT 6.1 g/dl (6.4-8.2)
[2020-09-26 01:08] LABS: ALK PHOS 306 U/L (45-117)
[2020-09-26 01:16] LABS: VENOUS BASE EXCESS -5.7 mmol/L (-2-2); VENOUS O2 SATURATION 30.5 % (70-80); VENOUS PCO2 50.6 mmHg (38-52); VENOUS PH 7.246 (7.310-7.410)
[2020-09-26 01:27] LABS: EPI CELLS 4 /uL (0-25.1); HYALINE CASTS 1 /uL (0-3.1); PH,URINE 6.5 (5.0-8.0); URINE APPEARANCE TURBID; URINE BACTERIA 4763 /uL (0-1359); URINE BILIRUBIN 1+ (NEGATIVE); URINE COLOR DK YELLOW; URINE GLUCOSE (UA) NEGATIVE (NEGATIVE); URINE KETONE NEGATIVE (NEGATIVE); URINE LEUK ESTERASE 3+ (NEGATIVE); URINE NITRITE POSITIVE (NEGATIVE); URINE PROTEIN 2+ (NEGATIVE); URINE RBC 3379 /uL (0-23.9); URINE WBC 1201 /uL (0-25.8)
[2020-09-26] MEDS ORDERED: CEFTRIAXONE 1,000 MG in DEXTROSE 5%-WATER - 50 ML IVPB ONE (02:39)
[2020-09-26] MEDS ORDERED: PIPERACILLIN/TAZOB 4.5 GM 4.5 GM in DEXTROSE 5%-WATER 100 ML IVPB ONE (03:07)
[2020-09-26] MEDS ORDERED: MEROPENEM 1 GM in DEXTROSE 5%-WATER 100 ML IVPB ONE (03:08)
[2020-09-26] MEDS ORDERED: SODIUM CHLORIDE 0.9% 500 ML INFUS.BAG IV ONE (04:17)
[2020-09-26] MEDS ORDERED: MEROPENEM 1 GM VIAL (RESTRICTED TO ID) IVPB ONE (04:46)
[2020-09-26] MEDS: LACTULOSE 20 GM/30 ML UDC (FOR ORAL USE ONLY) PO PRN (12:58)
[2020-09-26] MEDS ORDERED: MEROPENEM 500 MG VIAL (RESTRICTED TO ID) IVPB ONE (20:18)
[2020-09-26] MEDS: MEROPENEM 500 MG in DEXTROSE 5%-WATER 100 ML IVPB SCH (20:33)
[2020-09-26] MEDS ORDERED: PT OWN MED DRAWER 7, Y5N ONE (22:24)
[2020-09-27] MEDS: RIFAXIMIN 550 MG TABLET (UD) PO SCH ×3 (00:30→21:39)
[2020-09-27] MEDS ORDERED: SODIUM CHLORIDE 0.9% 500 ML INFUS.BAG IV ONE (03:30)
[2020-09-27] MEDS ORDERED: DEXTROSE 5%-WATER 100 ML IVPB ONE ×2 (08:35→20:06)
[2020-09-27] MEDS ORDERED: MEROPENEM 500 MG VIAL (RESTRICTED TO ID) IVPB ONE ×2 (08:35→20:06)
[2020-09-27] MEDS: MEROPENEM 500 MG in DEXTROSE 5%-WATER 100 ML IVPB SCH ×2 (08:37→20:09)
[2020-09-27 11:20] LABS: BASO % 0.4 % (0-2.0); EOS % 2.1 % (0-4.5); HEMATOCRIT 25.6 % (32.4-45.2); HEMOGLOBIN 8.2 GM/dL (10.7-15.3); LYMPH % 16.7 % (8-40); MCH 28.5 pg (25.7-33.7); MCHC 31.9 g/dl (32.0-36.0); MEAN CELL VOLUME 89.2 fl (80-96); MEAN PLT VOLUME 11.5 fl (7.5-11.1); MONO % 5.5 % (3.8-10.2); NEUT % 75.3 % (42.8-82.8); PLATELET COUNT 43 K/MM3 (134-434); RBC 2.86 M/mm3 (3.60-5.2)
[2020-09-27 11:32] LABS: INR 2.39 (0.83-1.09); PROTHROMBIN TIME (PATIENT) 28.2 SEC (9.7-13.0)
[2020-09-27 11:33] LABS: POTASSIUM 5.1 mmol/L (3.5-5.1)
[2020-09-27 11:38] LABS: CALCIUM 8.9 mg/dL (8.5-10.1)
[2020-09-27 11:39] LABS: ALBUMIN 1.8 g/dl (3.4-5.0); BLOOD UREA NITROGEN 40.3 mg/dL (7-18)
[2020-09-27 11:41] LABS: CREATININE 2.7 mg/dL (0.55-1.3)
[2020-09-27 11:42] LABS: BILIRUBIN,DIRECT 1.3 mg/dL (0.0-0.2)
[2020-09-27 11:43] LABS: BILIRUBIN,TOTAL 3.2 mg/dL (0.2-1); TOT PROT 5.7 g/dl (6.4-8.2)
[2020-09-27] MEDS ORDERED: PT OWN MED DRAWER 7, Y5N ONE (21:36)
[2020-09-28] MEDS ORDERED: MEROPENEM 500 MG VIAL (RESTRICTED TO ID) IVPB ONE ×2 (06:17→17:49)
[2020-09-28] MEDS ORDERED: DEXTROSE 5%-WATER 100 ML IVPB ONE ×2 (06:17→17:49)
[2020-09-28] MEDS: MEROPENEM 500 MG in DEXTROSE 5%-WATER 100 ML IVPB SCH ×2 (06:21→18:19)
[2020-09-28] MEDS ORDERED: PT OWN MED DRAWER 7, Y5N ONE ×3 (10:40→21:24)
[2020-09-28] MEDS: RIFAXIMIN 550 MG TABLET (UD) PO SCH ×2 (11:14→21:39)
[2020-09-28] MEDS: DEXTROSE 5%-0.45% SALINE 1,000 ML IV SCH (15:00)
[2020-09-28] MEDS ORDERED: SODIUM CHLORIDE 250 ML IV STA (20:43)
[2020-09-29] MEDS: LACTULOSE 20 GM/30 ML UDC (FOR ORAL USE ONLY) PO PRN (02:00)
[2020-09-29] MEDS ORDERED: MEROPENEM 500 MG VIAL (RESTRICTED TO ID) IVPB ONE ×2 (06:51→18:35)
[2020-09-29] MEDS ORDERED: DEXTROSE 5%-WATER 100 ML IVPB ONE ×2 (06:52→18:35)
[2020-09-29] MEDS: MEROPENEM 500 MG in DEXTROSE 5%-WATER 100 ML IVPB SCH ×2 (06:55→18:39)
[2020-09-29 08:32] LABS: BASO % 0.3 % (0-2.0); EOS % 2.6 % (0-4.5); HEMATOCRIT 22.2 % (32.4-45.2); HEMOGLOBIN 7.2 GM/dL (10.7-15.3); LYMPH % 22.9 % (8-40); MCH 28.6 pg (25.7-33.7); MCHC 32.4 g/dl (32.0-36.0); MEAN CELL VOLUME 88.3 fl (80-96); MEAN PLT VOLUME 11.6 fl (7.5-11.1); MONO % 10.2 % (3.8-10.2); PLATELET COUNT 40 K/MM3 (134-434); RBC 2.51 M/mm3 (3.60-5.2); RDW 15.9 % (11.6-15.6); WHITE BLOOD COUNT 5.4 K/mm3 (4.0-10.0)
[2020-09-29 08:45] LABS: POTASSIUM 5.2 mmol/L (3.5-5.1)
[2020-09-29 08:54] LABS: ALBUMIN 1.6 g/dl (3.4-5.0); BLOOD UREA NITROGEN 37.2 mg/dL (7-18); CALCIUM 8.3 mg/dL (8.5-10.1)
[2020-09-29 08:57] LABS: CREATININE 2.3 mg/dL (0.55-1.3)
[2020-09-29 08:59] LABS: BILIRUBIN,TOTAL 2.4 mg/dL (0.2-1); TOT PROT 5.3 g/dl (6.4-8.2)
[2020-09-29] MEDS: RIFAXIMIN 550 MG TABLET (UD) PO SCH ×2 (09:20→22:15)
[2020-09-29] MEDS: DEXTROSE 5%-0.45% SALINE 1,000 ML IV SCH ×2 (09:41→15:26)
[2020-09-29 14:10] LABS: CARCINOEMBRYONIC ANTIGEN 9.2 ng/mL (0.0-4.7)
[2020-09-29] MEDS ORDERED: PT OWN MED DRAWER 7, Y5N ONE (22:06)
[2020-09-30] MEDS ORDERED: MEROPENEM 500 MG VIAL (RESTRICTED TO ID) IVPB ONE ×2 (06:13→17:33)
[2020-09-30] MEDS ORDERED: DEXTROSE 5%-WATER 100 ML IVPB ONE ×2 (06:14→17:33)
[2020-09-30] MEDS: MEROPENEM 500 MG in DEXTROSE 5%-WATER 100 ML IVPB SCH ×2 (06:31→18:28)
[2020-09-30] MEDS: DEXTROSE 5%-0.45% SALINE 1,000 ML IV SCH (06:31)
[2020-09-30] MEDS ORDERED: PT OWN MED DRAWER 7, Y5N ONE (10:26)
[2020-09-30] MEDS: RIFAXIMIN 550 MG TABLET (UD) PO SCH ×2 (10:38→22:34)
[2020-09-30] MEDS: LACTULOSE 20 GM/30 ML UDC (FOR ORAL USE ONLY) PO SCH (10:38)
[2020-09-30 12:27] LABS: BASO % 0.4 % (0-2.0); EOS % 2.8 % (0-4.5); HEMATOCRIT 23.9 % (32.4-45.2); HEMOGLOBIN 7.7 GM/dL (10.7-15.3); LYMPH % 23.3 % (8-40); MCH 28.7 pg (25.7-33.7); MCHC 32.3 g/dl (32.0-36.0); MEAN CELL VOLUME 89.1 fl (80-96); MEAN PLT VOLUME 11.2 fl (7.5-11.1); MONO % 10.7 % (3.8-10.2); NEUT % 62.8 % (42.8-82.8); PLATELET COUNT 44 K/MM3 (134-434); RBC 2.69 M/mm3 (3.60-5.2); RDW 17.4 % (11.6-15.6)
[2020-09-30 12:35] LABS: POTASSIUM 4.8 mmol/L (3.5-5.1)
[2020-09-30 12:37] LABS: CALCIUM 8.1 mg/dL (8.5-10.1)
[2020-09-30 12:38] LABS: ALBUMIN 1.6 g/dl (3.4-5.0); BLOOD UREA NITROGEN 31.4 mg/dL (7-18)
[2020-09-30 12:41] LABS: CREATININE 2.1 mg/dL (0.55-1.3)
[2020-09-30 12:42] LABS: BILIRUBIN,TOTAL 2.5 mg/dL (0.2-1); TOT PROT 5.2 g/dl (6.4-8.2)
[2020-09-30] MEDS: DEXTROSE 5%-NORMAL SALINE 1,000 ML IV SCH (14:27)
[2020-09-30] MEDS ORDERED: ACETAMINOPHEN 1000 MG/100 ML VIAL (NON FORMULARY) IVPB ONE (22:47)
[2020-09-30] MEDS ORDERED: MORPHINE SULFATE 2 MG/ML VIAL IVPUSH ONE (22:48)
[2020-10-01] MEDS ORDERED: DEXTROSE 5%-WATER 100 ML IVPB ONE ×2 (05:11→19:33)
[2020-10-01] MEDS ORDERED: MEROPENEM 500 MG VIAL (RESTRICTED TO ID) IVPB ONE ×2 (05:11→19:33)
[2020-10-01] MEDS: MEROPENEM 500 MG in DEXTROSE 5%-WATER 100 ML IVPB SCH ×2 (06:23→19:35)
[2020-10-01 08:21] LABS: HEMATOCRIT 24.2 % (32.4-45.2); HEMOGLOBIN 7.8 GM/dL (10.7-15.3); MCH 28.9 pg (25.7-33.7); MCHC 32.4 g/dl (32.0-36.0); MEAN CELL VOLUME 89.1 fl (80-96); MEAN PLT VOLUME 11.6 fl (7.5-11.1); PLATELET COUNT 48 K/MM3 (134-434); RBC 2.72 M/mm3 (3.60-5.2); RDW 17.9 % (11.6-15.6); WHITE BLOOD COUNT 6.7 K/mm3 (4.0-10.0)
[2020-10-01 08:55] LABS: POTASSIUM 4.9 mmol/L (3.5-5.1)
[2020-10-01 09:02] LABS: ALBUMIN 1.7 g/dl (3.4-5.0); BLOOD UREA NITROGEN 29.9 mg/dL (7-18); CALCIUM 8.1 mg/dL (8.5-10.1)
[2020-10-01 09:05] LABS: BILIRUBIN,TOTAL 2.5 mg/dL (0.2-1); TOT PROT 5.6 g/dl (6.4-8.2)
[2020-10-01] MEDS ORDERED: PT OWN MED DRAWER 7, Y5N ONE ×2 (09:10→20:58)
[2020-10-01] MEDS: LACTULOSE 20 GM/30 ML UDC (FOR ORAL USE ONLY) PO SCH ×2 (09:21→21:04)
[2020-10-01] MEDS: RIFAXIMIN 550 MG TABLET (UD) PO SCH ×2 (09:21→21:04)
[2020-10-01 13:11] VITALS: BMI 26.2
[2020-10-01] MEDS: DEXTROSE 5%-NORMAL SALINE 1,000 ML IV SCH (14:00)
[2020-10-01] MEDS: AMINO ACIDS/PROTEIN HYDROLYS 30 ML LIQUID.PKT PO SCH (18:07)
[2020-10-02] MEDS ORDERED: MEROPENEM 500 MG VIAL (RESTRICTED TO ID) IVPB ONE ×2 (06:30→19:56)
[2020-10-02] MEDS ORDERED: DEXTROSE 5%-WATER 100 ML IVPB ONE ×2 (06:31→19:57)
[2020-10-02] MEDS: MEROPENEM 500 MG in DEXTROSE 5%-WATER 100 ML IVPB SCH ×2 (06:34→20:14)
[2020-10-02] MEDS ORDERED: PT OWN MED DRAWER 7, Y5N ONE ×2 (09:27→21:28)
[2020-10-02] MEDS: LACTULOSE 20 GM/30 ML UDC (FOR ORAL USE ONLY) PO SCH ×2 (09:29→21:39)
[2020-10-02] MEDS: AMINO ACIDS/PROTEIN HYDROLYS 30 ML LIQUID.PKT PO SCH ×2 (09:29→16:50)
[2020-10-02] MEDS: RIFAXIMIN 550 MG TABLET (UD) PO SCH ×2 (09:29→21:39)
[2020-10-02] MEDS: MULTIVIT-MINERALS ORAL LIQUID PO SCH (09:30)
[2020-10-02 15:55] LABS: BASO % 0.5 % (0-2.0); EOS % 2.7 % (0-4.5); HEMATOCRIT 23.9 % (32.4-45.2); HEMOGLOBIN 7.8 GM/dL (10.7-15.3); LYMPH % 21.9 % (8-40); MCHC 32.7 g/dl (32.0-36.0); MEAN CELL VOLUME 88.7 fl (80-96); MEAN PLT VOLUME 11.3 fl (7.5-11.1); MONO % 12.3 % (3.8-10.2); NEUT % 62.6 % (42.8-82.8); PLATELET COUNT 58 K/MM3 (134-434); RDW 18.2 % (11.6-15.6); WHITE BLOOD COUNT 6.8 K/mm3 (4.0-10.0)
[2020-10-02 16:00] LABS: INR 1.71 (0.83-1.09); PROTHROMBIN TIME (PATIENT) 20.4 SEC (9.7-13.0)
[2020-10-02 16:18] LABS: POTASSIUM 5.1 mmol/L (3.5-5.1)
[2020-10-02 16:21] LABS: ALBUMIN 1.8 g/dl (3.4-5.0); BLOOD UREA NITROGEN 25.9 mg/dL (7-18); CALCIUM 8.1 mg/dL (8.5-10.1)
[2020-10-02 16:24] LABS: BILIRUBIN,DIRECT 1.3 mg/dL (0.0-0.2)
[2020-10-02 16:25] LABS: BILIRUBIN,TOTAL 2.5 mg/dL (0.2-1)
[2020-10-02 16:26] LABS: TOT PROT 5.9 g/dl (6.4-8.2)
[2020-10-02] MEDS: DEXTROSE 5%-NORMAL SALINE 1,000 ML IV SCH ×2 (19:00)
[2020-10-02] MEDS: MIRTAZAPINE 15 MG TABLET (FP) PO SCH (21:39)
[2020-10-03] MEDS ORDERED: MEROPENEM 500 MG VIAL (RESTRICTED TO ID) IVPB ONE (06:17)
[2020-10-03] MEDS ORDERED: DEXTROSE 5%-WATER 100 ML IVPB ONE (06:17)
[2020-10-03] MEDS: MEROPENEM 500 MG in DEXTROSE 5%-WATER 100 ML IVPB SCH (06:18)
[2020-10-03] MEDS ORDERED: PT OWN MED DRAWER 7, Y5N ONE ×3 (09:01→21:28)
[2020-10-03] MEDS: RIFAXIMIN 550 MG TABLET (UD) PO SCH ×2 (11:02→21:43)
[2020-10-03] MEDS: AMINO ACIDS/PROTEIN HYDROLYS 30 ML LIQUID.PKT PO SCH ×2 (11:03→18:04)
[2020-10-03] MEDS: MULTIVIT-MINERALS ORAL LIQUID PO SCH (11:03)
[2020-10-03] MEDS: LACTULOSE 20 GM/30 ML UDC (FOR ORAL USE ONLY) PO SCH ×2 (11:03→21:43)
[2020-10-03] MEDS: DEXTROSE 5%-NORMAL SALINE 1,000 ML IV SCH (18:01)
[2020-10-03 19:44] VITALS: PULSE 93
[2020-10-03 21:35] VITALS: BP 109/65; TEMP 98
[2020-10-03] MEDS: MIRTAZAPINE 15 MG TABLET (FP) PO SCH (21:43)
== END 2020-10-03 22:00 | DRG 442 ==
LOC: JER 23:33 → JERBED 09-26 03:19 → J4S 09-27 00:19
PROVIDERS: ADMIT Hospitalist; ATTEND Internal Medicine
DX: K72.90 Hepatic failure, unspecified without coma (principal); I13.0 Hypertensive heart and chronic kidney disease with heart failure and stage 1 through stage 4 chronic kidney disease, or unspecified chronic kidney disease; I50.32 Chronic diastolic (congestive) heart failure; R18.8 Other ascites; N39.0 Urinary tract infection, site not specified; N17.9 Acute kidney failure, unspecified; N18.30 Chronic kidney disease, stage 3 unspecified; K75.81 Nonalcoholic steatohepatitis (NASH); K21.9 Gastro-esophageal reflux disease without esophagitis; F03.90 Unspecified dementia, unspecified severity, without behavioral disturbance, psychotic disturbance, mood disturbance, and anxiety; E78.5 Hyperlipidemia, unspecified; I48.0 Paroxysmal atrial fibrillation; B95.2 Enterococcus as the cause of diseases classified elsewhere; D64.9 Anemia, unspecified; D69.6 Thrombocytopenia, unspecified; I87.2 Venous insufficiency (chronic) (peripheral); R63.4 Abnormal weight loss; Z68.26 Body mass index [BMI] 26.0-26.9, adult
CPT/HCPCS: 36415; 70450-TC; 71045-TC-FY; 76700-TC; 80053; 80307; 81003; 82105; 82140; 82248; 82378; 82803; 83605; 83615; 83690; 84484; 85025; 85027; 85610; 85730; 86301; 87040; 87086; 87186; 93005; 93010; 97116-GP; 97161-GP; 99285-25; C9803; U0003